=== PATIENT | female | born 1950 | race Caucasian/White ===

== ENCOUNTER → 2018-02-26 15:59 | Outpatient (CLI) | payer MEDICARE, OTHER, SELFPAY ==
--- NOTE | 2018-02-26 16:03 | CT_ITS ---
STUDY: LOW DOSE CT LUNG CANCER SCREENING REASON FOR EXAM: Female, 67 years old. 30 pack year history of smoking. RADIATION DOSAGE (If Supplied By Facility): CTDIvol = ( 3.02 ) mGy, DLP = ( 94.02 ) mGycm TECHNIQUE: No contrast was administered. Low dose technique was utilized (average mAS-38 and kVp 120). 1.25 mm axial source images with a slice interval of 1.25-mm were reconstructed in lung windows. 2.5 mm axial source images with a slice interval of 2.5-mm were reconstructed in lung windows. 5.0 mm axial source images with a slice interval of 5.0-mm were reconstructed in soft tissue windows. Nodule measured using lung windows on PACS and/or independent workstation with automated measurement of minimum and maximum diameter. Nodule measurement reported as average diameter rounded to the nearest whole number. Growth is defined as an increase ins size of greater than 1.5 mm. COMPARISON: None. NODULES: No suspicious nodules are seen. Emphysema: Hyperinflation There is evidence of increased markings with areas of confluence in the posterior lateral aspect of the right middle lobe as well as the anterior medial aspect of the right middle lobe. Focal increased markings also seen in the anterior aspect of the lingular segment of the left upper lobe. This is suggestive of scarring. Aorta: Atherosclerotic calcification. Coronary arteries: Coronary artery calcification. CT/Low Dose CT Lung Screening IMPRESSION: Lung-RADS category 3 - Continue screening with LDCT in 6 months. IMPORTANT NOTES FOR USE: ACR Lung-RADS Version 1.0 Assessment Categories Release Date: June 14, 2013 Category: Coded 0-4 bases on nodule(s) with highest degree of suspicion. Negative screen is defined as categories 1 and 2; a positive screen is defined as categories 3 and 4. Category 3 and 4A nodules that are unchanged on interval CT should be coded as category 2, and individuals returned to screening in 12 months. Category 4X: Category 3 or 4 nodules with additional imaging findings that increase the suspicion of lung cancer, such as spiculation, GGN that doubles in size in 1 year, enlarged lymph notes, etc. Category Modifiers: S (significant finding unrelated to lung cancer) and C (prior history of treated lung cancer) may be added to the 0-4 Lung-RADS Electronically Signed: Arcadio Perrin MD at 15:32 EST Tel [phone], Service support ,
== END ==
PROVIDERS: Family Provider Family Medicine; PCP Family Medicine; Referring Provider Family Medicine; Visit Provider Family Medicine
DX: Z87.891 Personal history of nicotine dependence (principal)
CPT/HCPCS: G0297

== ENCOUNTER 2020-03-08 19:33 | Emergency (ER) | payer MEDICARE, OTHER, SELFPAY ==
[2020-03-08 19:34] VITALS: BP 168/77; PULSE 123; RESP 16; TEMP 36.7; O2SAT 97; BMI 35.5
--- NOTE | 2020-03-08 20:30 | EKG12_ITS ---
Test Reason : ABN LABS Blood Pressure : / mmHG Vent. Rate : 108 BPM Atrial Rate : 108 BPM P-R Int : 146 ms QRS Dur : 066 ms QT Int : 326 ms P-R-T Axes : 056 023 058 degrees QTc Int : 436 ms Sinus tachycardia Otherwise normal ECG Confirmed by XIOMY FOX, ELAINE ([id number]), health editor KACEY PAREKH ([id number]) on 03/09/2020 2:17:49 PM Referred By: KELVIN Confirmed By:ELAINE STAUFFER MD
--- NOTE | 2020-03-08 20:30 | CT_ITS ---
STUDY: CTA CHEST REASON FOR EXAM: Female, 69 years old. SOB X WEEKS, ELEVATED D-DIMER TODAY OP. RADIATION DOSAGE (If Supplied By Facility): CTDIvol = ( 10.805 ) mGy, DLP = ( 518.39 ) mGycm TECHNIQUE: The examination was performed with the intravenous administration of IV 100mL Isovue-370. Post-processing of the angiographic images was performed, with multiplanar reformation and 3D reconstruction. Individualized dose optimization techniques were used for this CT. COMPARISON: Prior chest CT exam of 02/26/2018 FINDINGS: Normal enhancement of the main pulmonary artery and right and left pulmonary arteries. Normal enhancement of the bilateral peripheral pulmonary arteries. There is no demonstrated pulmonary embolism. Moderate plaque and mild elongation of the thoracic aorta. There is no demonstrated aortic dissection. Normal heart and pericardium. Coronary calcifications. Normal mediastinum. Normal hilar regions. Normal visualized trachea and bronchi. Lung villalpando are generally hyperexpanded Increased multifocal platelike areas of atelectasis more notably in the lower lobes, right middle lobe and lingula. Stable pleural-based 3 mm nodule of the right lower lobe, image 92 series 2. Stable 3 mm nodular opacity at the left lung base, image 184 series 2. Negative for pleural effusion. Normal chest wall structures. Degenerative changes of the thoracic spine with increased kyphosis. No acute findings in the uppermost abdomen. CT/CTA Chest W/WO Contrast IMPRESSION: Negative for pulmonary embolus. Atherosclerotic changes of the aorta without aneurysm or dissection. Normal cardiac size without pericardial effusion. Coronary calcifications are present. Generalized hyperexpansion with increased plate like areas of atelectasis primarily in the lower lobes, right middle lobe and lingula since prior exam without other areas of alexandrea consolidation or other types of infiltrates. Negative for pleural effusion. Noncalcified 3 mm pulmonary nodules as described above. Advise yearly follow-up/screening to continue. Electronically Signed: Florencia Owusu MD at 22:04 EST , Service support ,
--- NOTE | 2020-03-08 20:35 | ED.RN ---
NO OLD EKGS IN MUSE
[2020-03-08 21:01] LABS: Absolute Lymphocyte Count 0.92 X10^3/uL (0.83-4.51); Absolute Neutrophil Count 5.8 X10^3/uL (2.0-7.7); Basophil# 0.03 X10^3/uL; Basophil% 0.4 % (0-1); Eosinophils% 1.3 % (0-5); Hematocrit 42.2 % (37-47); Hemoglobin 14.2 g/dL (12.0-15.0); Lymphocyte # 0.92 X10^3/ul (4.0); Lymphocyte % 11.9 % (19-41); Mean Corp Hgb Conc 33.6 g/dL (32-36); Mean Corpuscular Hgb 31.9 pg (27.0-32.0); Mean Corpuscular Volume 94.8 fL (81-99); Mean Platelet Vol. 9.5 fl (6.2-12.0); Monocyte# 0.86 X10^3/uL; Monocyte% 11.2 % (0-10); NRBC Flagged by Analyzer 0 % (0-5); Neutrophil # 5.75 X10^3/uL (2.7-7.7); Neutrophil % 74.7 % (47-70); Platelet Count 225 K/mm3 (150-450); RBC Distribution Width CV 12.7 % (11.6-14.6); RBC Distribution Width SD 43.6 fl (35.1-43.9); Red Blood Count 4.45 M/mm3 (4.2-5.4); White Blood Count 7.7 K/mm3 (4.4-11.0)
[2020-03-08 21:26] LABS: Anion Gap 7 (5-15); BUN 12 mg/dL (7-18); BUN/Creat Ratio 14.8 RATIO (10-20); Chloride 104 mmol/L (98-107); Creatinine, Serum 0.81 mg/dL (0.55-1.02); EST Glomerular Filtration Rate 74 mL/min (>60); Est Glom Filt Rate - Afr Amer 90 mL/min (>60); Estimated Creatinine Clearance 48.77 ml/min; Glucose 189 mg/dL (74-106); Potassium 3.8 mmol/L (3.5-5.1); Sodium Level 138 mmol/L (136-145)
[2020-03-08 21:31] LABS: BNP,B-Type NATRIURETIC PEPTIDE 44.1 pg/mL (0-100)
[2020-03-08 21:55] VITALS: PULSE 112; RESP 25; RESP 26; O2SAT 86; O2SAT 95
[2020-03-08 21:57] VITALS: BP 140/69
--- NOTE | 2020-03-08 22:39 | ED.DCSUM_ITS ---
- ER Visit Summary Date of Service: 03/08/20 Chief Complaint: [Shortness of breath and abnormal labs] History of Present Illness: The patient is a 69 F [presents to the emergency department at the request of her primary care physician who ordered a D-dimer today and noted that it was elevated. Patient does state that she has been short of breath for about 3 months especially with exertion. Patient had a stress test in January that was normal. Patient states that she had some upper respiratory illness in the early part of 2019 for which she was treated with Zithromax and she felt like she got better. Patient then went down to [place] to see family and when she came back in November she started feeling increasingly short of breath with activity and exertion. She denies any chest pain. She denies any recent fever or cough. No Covid symptoms otherwise. Patient has history of hypertension and high cholesterol.] Patient was seen by pulmonology today nurse practitioner and had pulmonary function test. Patient is scheduled to see her health assessment and treatment teacher in the office tomorrow. Physical Examination: [HEENT-PERRLA, EOMI. Cranial nerves II through XII grossly intact. TMs clear. Mucous membranes moist. No adenopathy. Cardiovascular-regular rate and rhythm without murmur or ectopy Lungs-clear to auscultation, chest wall stable without crepitus or subcu emphysema Abdomen-normoactive bowel sounds, soft, nontender, no rebound or rigidity, no peritoneal signs. Extremities-intact ?4, normal range of motion, normal pulses, atraumatic] Test Results: [EKG obtained arrival shows sinus rhythm with a ventricular rate of 108 bpm with no acute segment changes. CBC with it was normal. Chemistries unremarkable. Troponin less than 0.015. BNP was 44. CTA of the chest showed no evidence of PE or dissection. Patient was noted to have platelike atelectasis in the lower lobes otherwise nothing significant.] Emergency Department Course and Treatment: [IV line established on arrival.] Treatment Plan: [Patient to keep her appointment with pulmonology tomorrow.] Disposition: [Discharged home in stable condition] Impression: [Dyspnea-etiology uncertain] This note was generated with [employer] software. It may contain incorrect words, spelling, and punctuation that were not noted in review of the chart prior to signing ED Disposition - Plan for ED Patient: Referrals: Hoda Marquis MD [Primary Care Provider] -
--- NOTE | 2020-03-08 22:42 | ED.DEP ---
ED Disposition - Plan for ED Patient: Instructions: ED Dyspnea Referrals: Hoda Marquis MD [Primary Care Provider] - 1 Day
[2020-03-08 22:56] VITALS: BP 150/84; PULSE 109; RESP 19; O2SAT 96
== END 2020-03-08 22:57 | disposition home or self-care (01) ==
PROVIDERS: Emergency Provider Emergency Medicine
DX: R06.00 Dyspnea, unspecified (principal); R06.02 Shortness of breath; R09.02 Hypoxemia; I10 Essential (primary) hypertension; E78.00 Pure hypercholesterolemia, unspecified; Z79.82 Long term (current) use of aspirin; Z79.899 Other long term (current) drug therapy; Z87.891 Personal history of nicotine dependence
CPT/HCPCS: 71275; 80048; 83880; 84484; 85025; 85379; 93005; 99284; Q9967; A4216

== ENCOUNTER → 2020-03-08 | Outpatient (CLI) | payer MEDICARE, OTHER, SELFPAY ==
[2020-03-08 17:16] LABS: D-Dimer Quantitative (DVT/PE) 0.54 FEU/ug/m (0.27-0.49)
== END | disposition home or self-care (01) ==
LOC: LABSPEC 15:58
PROVIDERS: PCP Family Medicine; Referring Provider Family Medicine; Visit Provider Family Medicine
DX: R06.02 Shortness of breath (principal); R09.02 Hypoxemia
CPT/HCPCS: 85379

== ENCOUNTER 2023-01-31 13:25 | Inpatient (IN) | payer MEDICARE, OTHER, SELFPAY ==
[2023-01-31] VITALS (10 sets, daily range): BP systolic 100–140; BP diastolic 73–91; PULSE 18–120; RESP 18–121; TEMP 35.6–37.6; O2SAT 92–97; BMI 35.9; BMI 35.3
--- NOTE | 2023-01-31 13:48 | EKG12_ITS ---
Test Reason : SOB Blood Pressure : / mmHG Vent. Rate : 114 BPM Atrial Rate : 114 BPM P-R Int : 128 ms QRS Dur : 066 ms QT Int : 302 ms P-R-T Axes : 000 018 047 degrees QTc Int : 416 ms Sinus tachycardia Otherwise normal ECG Confirmed by ALEXIS FOX, THOMAS ([id number]), video editor DAVID SIMONS ([id number]) on 02/03/2023 1:34:30 P M Referred By: Confirmed By:LENORE ESPINOZA MD
[2023-01-31] MEDS: Ipratropium/Albuterol Sulfate 3 ML AMPUL.NEB INHALATION ×2 (13:56→19:19)
[2023-01-31] MEDS: Albuterol 2.5 MG/3 ML VIAL.NEB. INHALATION (13:56)
[2023-01-31 14:16] LABS: Absolute Lymphocyte Count 0.98 X10^3/uL (0.83-4.51); Absolute Neutrophil Count 7.4 X10^3/uL (2.0-7.7); Basophil# 0.04 X10^3/uL; Basophil% 0.4 % (0-1); Eosinophil# 0.07 X10^3/uL; Eosinophils% 0.7 % (0-5); Hematocrit 43.8 % (37-47); Hemoglobin 15.1 g/dL (12.0-15.0); Lymphocyte # 0.98 X10^3/ul (0.83-4.51); Lymphocyte % 10.2 % (19-41); Mean Corp Hgb Conc 34.5 g/dL (32-36); Mean Corpuscular Hgb 33.2 pg (27.0-32.0); Mean Corpuscular Volume 96.3 fL (81-99); Mean Platelet Vol. 9.4 fl (6.2-12.0); Monocyte# 1.05 X10^3/uL; NRBC Flagged by Analyzer 0 % (0-5); Neutrophil # 7.41 X10^3/uL (2.7-7.7); Neutrophil % 77.4 % (47-70); Platelet Count 203 K/mm3 (150-450); RBC Distribution Width CV 12.4 % (11.6-14.6); RBC Distribution Width SD 44.1 fl (35.1-43.9); Red Blood Count 4.55 M/mm3 (4.2-5.4); White Blood Count 9.6 K/mm3 (4.4-11.0)
--- NOTE | 2023-01-31 14:17 | RAD_ITS ---
STUDY: X-RAY CHEST REASON FOR EXAM: Female, 72 years old. Dyspnea TECHNIQUE: Single AP portable view of the chest. COMPARISON: None. FINDINGS: EKG electrode are seen. Mild degree of vascular congestion. Mild increased markings at the lung bases to just above the left basilar scarring and/or linear atelectasis. There is no demonstrated pleural abnormality. Normal size heart. Normal mediastinum and radu. Normal visualized pulmonary arteries. There is atherosclerotic calcification of the aortic arch with tortuosity. There are diffuse degenerative changes of the visualized thoracic spine. There is degenerative osteoarthritis of the bilateral shoulders. There is no demonstrated abnormality of the visualized soft tissue structures of the upper abdomen. RAD/Chest 1 View (Portable) IMPRESSION: Mass or congestion. Mild increased markings at the lung bases suggestive of linear atelectasis and/or scarring. Electronically Signed: Arcadio Perrin MD at 14:37 EST ,
[2023-01-31 14:33] LABS: Anion Gap 4 (5-15); BUN 9 mg/dL (7-18); BUN/Creat Ratio 13.3 RATIO (10-20); Calcium,Total 9.8 mg/dL (8.5-10.1); Chloride 98 mmol/L (98-107); Creatinine, Serum 0.68 mg/dL (0.55-1.02); EST Glomerular Filtration Rate 90 mL/min (>60); Est Glom Filt Rate - Afr Amer 109 mL/min (>60); Estimated Creatinine Clearance 37.81 ml/min; Glucose 170 mg/dL (74-106); Potassium 3.7 mmol/L (3.5-5.1); Sodium Level 135 mmol/L (136-145)
[2023-01-31 15:35] LABS: BNP,B-Type NATRIURETIC PEPTIDE 78.1 pg/mL (0-100)
[2023-01-31 15:42] LABS: Troponin-I HS 8 pg/mL (3.0-54.0)
--- NOTE | 2023-01-31 15:57 | ED.VIS.DYS ---
HPI History of Present Illness Chief Complaint: Shortness of Breath Informant: patient Narrative Narrative: 72-year-old female presenting to the emergency room with shortness of breath and wheezing. Patient states that on Friday she developed cough and wheezing and progressively battled a week. She notes an associated fever which she states went away around Friday evening. She notes that she continues to Wheeze and bring up phlegm. She states that she quit smoking in 2010. She takes Trelegy and has a rescue inhaler. She states she has oxygen but wears it at night and it is just located in her bedroom. She states that she does not wear CPAP.. Patient notes that she has dyspnea with exertion to the bathroom. [facility] Medical History COVID Diabetes HTN (hypertension) Hypercholesteremia Obesity Pneumonia Home Medications albuterol sulfate 90 mcg/actuation aerosol inhaler 2 puff inhalation Q4H PRN PRN Wheezing 03/08/20 [History Last Taken Unknown] amlodipine 10 mg tablet 10 mg PO DAILY 03/08/20 [History Last Taken Unknown] aspirin 81 mg tablet,delayed release 81 mg PO DAILY@0800 03/08/20 [History Last Taken Unknown] atorvastatin 40 mg tablet 40 mg PO QHS 03/08/20 [History Last Taken Unknown] lisinopril 40 mg tablet 40 mg PO DAILY 03/08/20 [History Last Taken Unknown] vitamins A,C,N-ihmu-wsyhzy 2,148 mcg-113 mg-45 mg-17.4 mg tablet 1 ea PO DAILY 03/08/20 [History Last Taken Unknown] fluticasone fur. 100 mcg-umeclid 62.5 mcg-vilant 25 mcg inhalat.powder (Trelegy Ellipta) 1 inh inhalation Q24H 01/31/23 [History Last Taken Unknown] metformin 500 mg tablet 500 mg PO DAILY 01/31/23 [History Last Taken Unknown] Allergy/AdvReac Type Severity Reaction Status Date / Time codeine Allergy Itching Verified 03/08/20 19:38 Penicillins [PCN] Allergy Itching Verified 03/08/20 19:38 Sulfa (Sulfonamide Allergy Itching Verified 03/08/20 19:38 Antibiotics) Tetanus Vaccines and Toxoid Allergy NEEDS Verified 03/08/20 19:38 FOLLOW-UP Social History Smoking Status: Former smoker ROS ROS ED Constitutional Constitutional ED: Reports chills, fever(s) and sweats; Denies weight loss Eyes Eyes: Denies change in vision or diplopia ENT ENT ED: Reports rhinorrhea; Denies ear pain or sore throat Cardiovascular Cardiovascular: Denies chest pain, orthopnea, palpitations or racing heartbeat Respiratory/Chest Respiratory/Chest: Reports cough, dyspnea, dyspnea on exertion and sputum; Denies orthopnea Gastrointestinal Gastrointestinal: Denies abdominal pain, diarrhea, nausea or vomiting Genitourinary Genitourinary ED: Denies dysuria, hematuria or urinary frequency Musculoskeletal Musculoskeletal: Reports myalgias; Denies arthralgias Integumentary Denies abscess or rash Neurologic Neurologic: Denies headache(s) or weakness Psychiatric Psychiatric: Denies anxiety, depression, suicidal ideation or suicidal thoughts Endocrine Endocrinology: Denies polydipsia, polyphagia or polyuria Allergic/Immunologic Allergic/Immunologic ED: Denies mouth swelling, tongue swelling or urticaria EXAM Physical Exam Const Vital Signs: 01/31/23 13:26 01/31/23 13:49 01/31/23 14:18 Temperature 99.3 F H Temperature Source Temporal Pulse Rate 120 H 120 H Respiratory Rate 22 H 20 H Respiratory Effort Short of Breath Respiratory Depth Normal Respiratory Pattern Normal Blood Pressure 140/79 H Blood Pressure Mean 99 Pulse Ox 94 Oxygen Delivery Method Room Air Room Air 01/31/23 15:20 01/31/23 16:30 Temperature 97.8 F Temperature Source Pulse Rate 18 L 113 H Respiratory Rate 121 H 19 H Respiratory Effort Respiratory Depth Respiratory Pattern Blood Pressure 100/73 115/77 Blood Pressure Mean 82 89 Pulse Ox 95 94 Oxygen Delivery Method Room Air Positive well nourished, well developed and obese General Appearance ED: well developed Nutritional Appearance: obese HEENT Reports normocephalic, head/scalp atraumatic and moist mucous membranes Eyes PERRL and EOMs intact bilaterally Neck no lymphadenopathy, supple and no JVD Resp Resp Narrative: Patient has conversational dyspnea Auscultation: rhonchi, wheezes and diminished lung sounds Cardio regular rate, regular rhythm and no murmurs Rate: tachycardic GI normal to inspection, nondistended, normoactive bowel sounds and non-tender Palpation: soft Back/Spine no CVA tenderness and normal ROM Extremity normal to inspection General Extremety ED: Negative for edema General Extremity: Negative for edema Neuro oriented x3 and CN's II-XII intact bilaterally Sensorium / Orientation: alert Motor Exam: strength 5/5 throughout Psych mental status grossly normal Mood & Affect: Negative for depressed or tearful Skin no rashes or lesions noted and no wounds MDM MDM MDM Narrative Medical decision making narrative: Patient received breathing treatments and later Solu-Medrol. White count 9.6 hemoglobin 15.1. Troponin 8 BNP 78. BMP showed a glucose of 170. My independent interpretation of the chest x-ray is no definitive infiltrate/consolidation. After the treatment the patient continues to be tachycardic and dyspneic. When she ambulates on room air her pulse ox is in the 80s. Patient appears to have a viral illness with bronchospasm and hypoxia. Plan is admission. History & Record Review Discussion w/independent historian: Patient Additional record(s) reviewed:: Prior ED visit and Prior labs Lab Data Attestation: I reviewed the patient's lab results. Labs: Laboratory Results - last 24 hr 01/31/23 14:00 WBC 9.6 RBC 4.55 Hgb 15.1 H Hct 43.8 MCV 96.3 MCH 33.2 H MCHC 34.5 RDW Std Deviation 44.1 H RDW Coeff of Rashaad 12.4 Plt Count 203 MPV 9.4 Immature Gran % (Auto) 0.300 Neut % (Auto) 77.4 H Lymph % (Auto) 10.2 L [place] % (Auto) 11.0 H Eos % (Auto) 0.7 Baso % (Auto) 0.4 Absolute Neuts (auto) 7.4 Absolute Lymphs (auto) 0.98 Nucleated RBC % 0 Sodium 135 L Potassium 3.7 Chloride 98 Carbon Dioxide 33.0 H Anion Gap 4 L BUN 9 Creatinine 0.68 Estim Creat Clear Calc 37.81 Est GFR (MDRD) Af Amer 109 Est GFR (MDRD) Non-Af 90 BUN/Creatinine Ratio 13.3 Glucose 170 H Calcium 9.8 Troponin I High Sens 8 B-Natriuretic Peptide 78.1 Radiography Diagnostic Testing: Clinical Impression(s) from Imaging Studies Chest X-Ray 01/31/23 14:17 IMPRESSION: Mass or congestion. Mild increased markings at the lung bases suggestive of linear atelectasis and/or scarring. Electronically Signed: Arcadio Perrin MD at 14:37 EST , ADDENDUM: 01/31/23 1509 IMPRESSION: Vascular congestion. Electronically Signed: Arcadio Perrin MD at 15:02 EST , EKG Initial EKG: Attestation: I personally reviewed and interpreted this EKG as follows: Comments: Sinus tachycardia with a ventricular rate of 114 bpm Management Discussion w/another healthcare provider: Hospitalist Discharge Plan Dx/Rx/DC Orders Clinical Impression: Acute bronchitis with bronchospasm, Hypoxia Disposition Disposition: Acute Care Hospital [facility]
[2023-01-31] MEDS: MethylPREDNISolone 125 MG/2 ML Vial IV (16:27)
--- NOTE | 2023-01-31 17:17 | PCM.HP.STD ---
HPI - General General Date of Admission: 01/31/23 Date of Service: 01/31/23 Chief Complaint: Increasing SOB HPI Narrative YUE LOPEZ, is a 72 F with hypertension, former tobacco use, O2 nightly, and insomnia who presents to [facility] 01/31/2023 due to increasing shortness of breath and productive cough. Reportedly started coughing and got congested on Friday and had a fever at that time, fever has resolved but she has had increased shortness of breath and cough with yellow and brown sputum. In ED patient with significant wheezing and when ambulated with decrease sats to 85% on room air, at rest was 90 to 91% on room air. Patient denies any lung issues however uses a trilogy inhaler and oxygen at bedtime but does not note any specific underlying diagnoses. At present feels slightly better than she did on arrival she got steroids and nebs however still feels wheezy and short of breath. Patient agreeable for admission. No fever in several days, reports that she had a sick contact 3 days before she became ill but does not know what that person had. Denies any other focal complaints. Was a former tobacco user quit in 2010, does have difficulty with sleep so drinks 3 glasses of Chardonnay nightly to help her sleep, denies any history of withdrawal or problems if she does not drink aside from does not being able to sleep very well. No chest pain, no swelling. [facility] Medical History (Updated 01/31/23 @ 17:[address] Deborah Barron MD) COPD (chronic obstructive pulmonary disease) COVID Diabetes HTN (hypertension) Hypercholesteremia Legally blind Obesity Pneumonia Home Medications albuterol sulfate 90 mcg/actuation aerosol inhaler 2 puff inhalation Q4H PRN PRN Wheezing 03/08/20 [History Last Taken Unknown] amlodipine 10 mg tablet 10 mg PO DAILY 03/08/20 [History Last Taken Unknown] aspirin 81 mg tablet,delayed release 81 mg PO DAILY@0800 03/08/20 [History Last Taken Unknown] atorvastatin 40 mg tablet 40 mg PO QHS 03/08/20 [History Last Taken Unknown] lisinopril 40 mg tablet 40 mg PO DAILY 03/08/20 [History Last Taken Unknown] vitamins A,C,A-fltj-rifnth 2,148 mcg-113 mg-45 mg-17.4 mg tablet 1 ea PO DAILY 03/08/20 [History Last Taken Unknown] fluticasone fur. 100 mcg-umeclid 62.5 mcg-vilant 25 mcg inhalat.powder (Trelegy Ellipta) 1 inh inhalation Q24H 01/31/23 [History Last Taken Unknown] metformin 500 mg tablet 500 mg PO DAILY 01/31/23 [History Last Taken Unknown] Allergy/AdvReac Type Severity Reaction Status Date / Time venom-honey bee Allergy Severe Swelling Verified 01/31/23 17:12 codeine Allergy Itching Verified 03/08/20 19:38 Penicillins [PCN] Allergy Itching Verified 03/08/20 19:38 Sulfa (Sulfonamide Allergy Itching Verified 03/08/20 19:38 Antibiotics) Tetanus Vaccines and Toxoid Allergy NEEDS Verified 03/08/20 19:38 FOLLOW-UP Family History (Updated 01/31/23 @ 17:00 by Chinyere Melchor) Mother Heart failure Father Heart failure Social History Smoking Status: Former smoker ROS ROS Narrative General: Initially fevers early in the week but these have resolved HENT: Denies headache, some nasal congestion, denies sore throat EYES: Denies changes in vision Resp: Shortness of breath on exertion primarily with productive cough Cardiac: Denies chest pain GI: Denies abdominal pain, denies changes in bowel, denies nausea/vomiting : Denies changes in urination Extremity: Denies swelling MSK: Denies weakness Neuro: Denies any numbness/tingling Heme: Denies any bleeding or bruising Skin: Denies rashes Psychiatric: No complaints voiced Vital Signs Vital Signs Vital Signs: 01/31/23 13:26 01/31/23 13:49 01/31/23 14:18 Temperature 99.3 F H Temperature Source Temporal Pulse Rate 120 H 120 H Respiratory Rate 22 H 20 H Respiratory Effort Short of Breath Respiratory Depth Normal Respiratory Pattern Normal Blood Pressure 140/79 H Blood Pressure Mean 99 Blood Pressure Source Blood Pressure Position Blood Pressure Location Pulse Ox 94 Oxygen Delivery Method Room Air Room Air 01/31/23 15:20 01/31/23 16:30 01/31/23 17:04 Temperature 97.8 F 99.6 F H Temperature Source Oral Pulse Rate 18 L 113 H 107 H Respiratory Rate 121 H 19 H 20 H Respiratory Effort Respiratory Depth Respiratory Pattern Blood Pressure 100/73 115/77 113/91 H Blood Pressure Mean 82 89 98 Blood Pressure Source Monitor Blood Pressure Position Sitting Blood Pressure Location Left Arm Pulse Ox 95 94 96 Oxygen Delivery Method Room Air Room Air Weight Weight: 84.822 kg Body Mass Index (BMI) 35.3 Physical Exam Narrative General: Alert, oriented, no apparent distress HEENT: Atraumatic, normocephalic Eyes: Anicteric, normal conjunctiva, extraocular movements grossly intact Neck: Supple Respiratory: Increased effort with diffuse wheezing Cardiovascular: Slightly tachycardic, sinus rhythm GI: Soft, nontender, nondistended Extremities: No edema Musculoskeletal: Moving all extremities Neuro: No overt focal neurological deficits Skin: No rashes appreciated Psych: Cooperative Results Lab / Micro Data 01/31/23 14:00 01/31/23 14:00 Labs: Laboratory Results - last 24 hr 01/31/23 14:00: WBC 9.6, RBC 4.55, Hgb 15.1 H, Hct 43.8, MCV 96.3, MCH 33.2 H, MCHC 34.5, RDW Std Deviation 44.1 H, RDW Coeff of Rashaad 12.4, Plt Count 203, MPV 9.4, Immature Gran % (Auto) 0.300, Neut % (Auto) 77.4 H, Lymph % (Auto) 10.2 L, [place] % (Auto) 11.0 H, Eos % (Auto) 0.7, Baso % (Auto) 0.4, Absolute Neuts (auto) 7.4, Absolute Lymphs (auto) 0.98, Nucleated RBC % 0, Sodium 135 L, Potassium 3.7, Chloride 98, Carbon Dioxide 33.0 H, Anion Gap 4 L, BUN 9, Creatinine 0.68, Estim Creat Clear Calc 37.81, Est GFR (MDRD) Af Amer 109, Est GFR (MDRD) Non-Af 90, BUN/Creatinine Ratio 13.3, Glucose 170 H, Calcium 9.8, Troponin I High Sens 8, B-Natriuretic Peptide 78.1 Micro: Microbiology 01/31/23 14:06 Nasal Secretion SARS-CoV-2 & FLU Antigen (Rapid) - Final Imagaing Radiology Impression Chest X-Ray 01/31/23 14:17 IMPRESSION: Mass or congestion. Mild increased markings at the lung bases suggestive of linear atelectasis and/or scarring. Electronically Signed: Arcadio Perrin MD at 14:37 EST , ADDENDUM: 01/31/23 1509 IMPRESSION: Vascular congestion. Electronically Signed: Arcadio Perrin MD at 15:02 EST , Assessment & Plan Assessment/Plan (1) Acute bronchitis with bronchospasm: PLAN: Plan # Hypoxia suspect acute on chronic secondary to likely underlying COPD -Patient poor historian as she had reported no lung issues but uses a trelegy inhaler and 2 L of O2 at bedtime -Suspect given her Trelegy inhaler use and history of tobacco use that she may have underlying COPD -Symptoms consistent with a COPD exacerbation -No elevated white blood cell count, has not had any further fevers and no infiltrate on x-ray so do not think she needs treated as pneumonia but will treat as acute exacerbation of COPD -Steroids -Nebs -Azithromycin -COVID and flu negative will check viral panel will also check sputum culture if patient able to produce sample -Incentive spirometer -Mucinex # Hypertension -Continue amlodipine and lisinopril -Patient slightly tachycardic but this is sinus tach and suspect it is all compensatory so we will treat underlying illness # Daily alcohol use -Denies problems with withdrawal in the past but does drink 3 glasses of Chardonnay daily so will add on CIWA coverage in the event patient does begin to withdraw #DVT ppx: Lovenox subcu Deborah Barron MD Time spent in the patient's overall evaluation,decision-making process, review of diagnostic data, adjustment of management, discussion with other providers, nursing nursing and ancillary staff involved in patient's care documentation, 55 minutes
[2023-01-31 18:32] LABS: Bedside Glucose 167 mg/dL (74-106)
[2023-01-31] MEDS: Atorvastatin Calcium 40 MG Tablet PO (20:13)
[2023-01-31] MEDS: guaiFENesin 1,200 MG Tablet 1200 MG PO (20:13)
[2023-01-31 23:15] LABS: Bedside Glucose 261 mg/dL (74-106)
[2023-01-31] MEDS: Insulin Lispro 100 UNIT/ML INSULN.PEN SC (23:25)
[2023-02-01] VITALS (13 sets, daily range): BP systolic 102–167; BP diastolic 65–82; PULSE 89–123; RESP 16–20; TEMP 36.1–36.7; O2SAT 91–95
[2023-02-01] MEDS: Ipratropium/Albuterol Sulfate 3 ML AMPUL.NEB INHALATION ×7 (03:42→23:35)
--- NOTE | 2023-02-01 04:47 | PCM.HOSP.N ---
Hospitalist Note Staff reported respiratory panel results per laboratory with positive influenza A H1. Will initiate Tamiflu.
[2023-02-01] MEDS: Oseltamivir Phosphate 30 MG Capsule PO ×2 (05:52→22:48)
[2023-02-01] MEDS: Insulin Lispro 100 UNIT/ML INSULN.PEN SC ×4 (06:43→22:40)
[2023-02-01 06:57] LABS: Bedside Glucose 303 mg/dL (74-106)
[2023-02-01 08:35] LABS: Absolute Lymphocyte Count 0.42 X10^3/uL (0.83-4.51); Absolute Neutrophil Count 6.5 X10^3/uL (2.0-7.7); Basophil# 0.02 X10^3/uL; Basophil% 0.3 % (0-1); Hematocrit 43.2 % (37-47); Hemoglobin 14.6 g/dL (12.0-15.0); Lymphocyte # 0.42 X10^3/ul (0.83-4.51); Lymphocyte % 5.8 % (19-41); Mean Corp Hgb Conc 33.8 g/dL (32-36); Mean Corpuscular Volume 97.5 fL (81-99); Mean Platelet Vol. 9.9 fl (6.2-12.0); Monocyte% 4.1 % (0-10); NRBC Flagged by Analyzer 0 % (0-5); Neutrophil # 6.46 X10^3/uL (2.7-7.7); Neutrophil % 89.1 % (47-70); POSITIVE DIFFERENTIAL YES; Platelet Count 226 K/mm3 (150-450); RBC Distribution Width CV 12.4 % (11.6-14.6); RBC Distribution Width SD 44.1 fl (35.1-43.9); Red Blood Count 4.43 M/mm3 (4.2-5.4); White Blood Count 7.3 K/mm3 (4.4-11.0)
[2023-02-01 08:56] LABS: Differential Indicated SCAN CRITERIA MET
[2023-02-01 09:00] LABS: Anion Gap 8 (5-15); BUN 14 mg/dL (7-18); BUN/Creat Ratio 18.4 RATIO (10-20); Calcium,Total 9.6 mg/dL (8.5-10.1); Chloride 99 mmol/L (98-107); Creatinine, Serum 0.76 mg/dL (0.55-1.02); EST Glomerular Filtration Rate 79 mL/min (>60); Est Glom Filt Rate - Afr Amer 96 mL/min (>60); Estimated Creatinine Clearance 37.81 ml/min; Glucose 295 mg/dL (74-106); Potassium 3.2 mmol/L (3.5-5.1); Sodium Level 135 mmol/L (136-145); Thyroid Stim Hormone (TSH) 0.39 uIU/mL (0.358-3.74)
[2023-02-01] MEDS: Aspirin E.C. 81 MG Tablet PO (10:18)
[2023-02-01] MEDS: guaiFENesin 1,200 MG Tablet 1200 MG PO ×2 (10:18→22:40)
[2023-02-01] MEDS: Azithromycin 250 MG Tablet 500 MG PO (10:18)
--- NOTE | 2023-02-01 11:49 | CASEMGMT ---
Social Work As per admitting RN, pt does not have LW/POA and declined additional information. DACIA Manuel
[2023-02-01 12:02] LABS: Differential Comment SCANNED
[2023-02-01 13:01] LABS: Bedside Glucose 346 mg/dL (74-106)
[2023-02-01] MEDS: 0.9% Saline Lock 10 ML Syringe IV ×2 (15:20→22:42)
--- NOTE | 2023-02-01 15:21 | PCM.PN.HOSP ---
Reason for Visit Reason for Visit: Diagnoses Acute bronchitis, unspecified (01/31/23) Subjective Subjective Patient seen at bedside this morning. Patient was sitting comfortably in bedside chair, receiving a DuoNeb treatment during my interview. Patient stated that she felt improved this morning at comparison to yesterday. She denied any significant shortness of breath at rest. Satting well on room air currently with no increased work of breathing noted. Does continue to have some dyspnea with exertion. States her cough has been less productive today. Denies any fevers or chills. No other acute concerns this morning. Objective Data Objective Data Vital Signs: Vital Signs Temp Pulse Resp BP Pulse Ox O2 Del Method 97 F L 115 H 16 140/65 H 93 Room Air 02/01/23 12:59 02/01/23 12:59 02/01/23 12:59 02/01/23 12:59 02/01/23 12:59 02/01/23 12:59 Oxygen Delivery Method Room Air Weight: 84.822 kg Body Mass Index (BMI) 35.3 Intake & Output: Intake and Output for Last 24 Hours 01/30/23 01/31/23 02/01/23 23:59 23:59 23:59 Intake Total 400 / 400 Balance 400 / 400 Lab / Micro Data 02/01/23 07:24 02/01/23 07:24 Labs: Laboratory Results - last 24 hr 01/31/23 14:00: Troponin I High Sens 8, B-Natriuretic Peptide 78.1 01/31/23 17:48: POC Glucose 167 H 01/31/23 22:47: POC Glucose 261 H 02/01/23 06:35: POC Glucose 303 H 02/01/23 07:24: WBC 7.3, RBC 4.43, Hgb 14.6, Hct 43.2, MCV 97.5, MCH 33.0 H, MCHC 33.8, RDW Std Deviation 44.1 H, RDW Coeff of Rashaad 12.4, Plt Count 226, MPV 9.9, Immature Gran % (Auto) 0.700, Neut % (Auto) 89.1 H, Lymph % (Auto) 5.8 L, [place] % (Auto) 4.1, Eos % (Auto) 0.0, Baso % (Auto) 0.3, Absolute Neuts (auto) 6.5, Absolute Lymphs (auto) 0.42 L, Nucleated RBC % 0, Differential Comment SCANNED, Sodium 135 L, Potassium 3.2 L, Chloride 99, Carbon Dioxide 28.0, Anion Gap 8, BUN 14, Creatinine 0.76, Estim Creat Clear Calc 37.81, Est GFR (MDRD) Af Amer 96, Est GFR (MDRD) Non-Af 79, BUN/Creatinine Ratio 18.4, Glucose 295 H, Calcium 9.6, TSH 0.39 02/01/23 12:16: POC Glucose 346 H Micro: Microbiology 01/31/23 20:40 Sputum, Expectorated/Coughed Gram Stain - Final 01/31/23 19:19 Mucosa - Nasopharyngeal Respiratory Panel (PCR) - Final Influenza A (Subtype H1) 01/31/23 18:24 Urine, Clean Catch Legionella Antigen - Final 01/31/23 18:24 Urine, Clean Catch Streptococcus pneumoniae Antigen (M - Final 01/31/23 14:06 Nasal Secretion SARS-CoV-2 & FLU Antigen (Rapid) - Final Physical Exam Const alert, oriented x3 and no apparent distress Constitutional Narrative: Pleasant elderly female, obese, sitting comfortably in bedside chair, conversing normally, no acute distress. General Appearance: cooperative and comfortable HEENT normocephalic, head/scalp atraumatic, hearing grossly normal bilaterally, nasal mucous membranes and turbinates normal and moist oral mucous membranes Eyes PERRL, EOMs intact bilaterally and conjunctivae normal Neck full ROM, no lymphadenopathy and supple Lymph Lymphatic: no lymphadenopathy noted Chest inspection of chest normal Resp Resp Narrative: Decreased breath sounds bilaterally throughout, no wheezing or crackles noted. Satting in low 90s on room air, no increased work of breathing noted. Cardio regular rate, regular rhythm, no murmurs and peripheral pulses 2+ throughout GI normal to inspection, nondistended, normoactive bowel sounds, soft to palpation, non-tender and non-distended Back/Spine normal ROM Extremity normal to inspection, full ROM and no pedal edema Skin no rashes or lesions noted Neuro moves all extremities and no focal motor deficits Speech: speech normal Psych mental status grossly normal Assessment & Plan Assessment/Plan (1) Influenza A: (2) COPD exacerbation: PLAN: Plan Patient is a 72-year-old female who presented to [facility] ED on 01/31/23 with worsening cough and shortness of breath. 1. Influenza A infection with suspected COPD exacerbation Positive for influenza A on admit. Chest x-ray showed mild increased markings at lung bases, mild degree of vascular congestion. Patient with mild hypoxia on admit requiring 2 to 3 L nasal cannula. Denies history of COPD but uses a Trelegy inhaler at home and does have a history of tobacco use disorder. Symptoms appear consistent with COPD exacerbation secondary to flu infection. COVID-negative, urine antigens negative. ? Continue IV steroids, scheduled DuoNebs, Tamiflu, azithromycin. Sputum culture pending. Incentive spirometer, Mucinex as needed. Patient weaned to room air at rest. Will need O2 ambulatory testing prior to discharge. Chronic medical conditions: ? Hypertension: Continue home amlodipine and lisinopril. ? Daily alcohol use: Drinks 3 glasses of Chardonnay daily. No problems with withdrawal in the past. Has not triggered CIWA since admission, okay to continue monitoring. DVT prophylaxis: Lovenox CODE STATUS: Full code, verified Expected disposition: Home, tomorrow Total clinical time spent by myself addressing the patient's medical issues, reviewing all the data, and collaborating with patient's care team: 35 minutes. Charges/Coding Visit Charges Inpatient E&M: 02961 Subs Hosp L2
--- NOTE | 2023-02-01 15:40 | CASEMGMT ---
Addendum entered and electronically signed by Myra Jackson RN 02/01/23 21:41: Pt is legally blind and states she can see enough to navigate her home. States she goes outside to walk regularly with her son and a walker to keep her coordination between her eyes and her feet. Jose F Jackson RN CM Original Note: MELINDA PAPPAS Discharge Planning Assessment: Face to Face with patient for initial transition planning/care coordination assessment. MELINDA PAPPAS introduced self and role at [facility], pt alert, sitting up in chair, and answering questions appropriately. Pt voices understanding of MELINDA PAPPAS role and is agreeable to participating in assessment. Care providers, pharmacy, and demographics verified. Admitting dx: Influenza A, bronchitis PCP: Nikki Specialists: Benitez (pulmonology), kai matias'david Preferred Pharmacy: [facility] Insurance: MCR A/B, AARP Prescription Benefit: yes LNOK: son Nikita Living Arrangements: Pt resides with her son Nikita in a single story home with three steps to enter. Pt states she is independent with ADLs and some IADLs. Pt's daughter cleans the home weekly and Nikita assists with more complex meals. Pt states she is able to prepare simple meals. Transportation: p's son provides transportation as needed. DME: shower chair, grab bars, hand held shower, comfort height toilet, walker, O2 at hs only (does not know liter flow or provider which may be [facility]), pt does not have a glucometer or monitor her glucose. Pt states she controls her DM w/diet. SNF/HHC: pt denies any previous providers. Pt's goal/plan: pt plans to return home with the support of her son. Pt denies any discharge needs at this time and declines HH. Will continue to monitor and assist with discharge needs as identified. Mariela Jackson RN CM
[2023-02-01 17:49] LABS: Bedside Glucose 261 mg/dL (74-106)
[2023-02-01] MEDS: Atorvastatin Calcium 40 MG Tablet PO (22:40)
[2023-02-01 23:10] LABS: Bedside Glucose 266 mg/dL (74-106)
[2023-02-01] MEDS: DiphenhydrAMINE 25 MG Capsule PO (23:52)
[2023-02-02] VITALS (15 sets, daily range): BP systolic 119–163; BP diastolic 62–97; PULSE 64–153; RESP 16–20; TEMP 36.1–36.8; O2SAT 93–98
[2023-02-02] MEDS: Insulin Lispro 100 UNIT/ML INSULN.PEN SC ×3 (06:34→16:16)
[2023-02-02 06:55] LABS: Bedside Glucose 249 mg/dL (74-106)
[2023-02-02] MEDS: Ipratropium/Albuterol Sulfate 3 ML AMPUL.NEB INHALATION ×5 (07:53→23:14)
[2023-02-02] MEDS: Azithromycin 250 MG Tablet 500 MG PO (09:07)
[2023-02-02] MEDS: 0.9% Saline Lock 10 ML Syringe IV ×2 (09:07→12:40)
[2023-02-02] MEDS: guaiFENesin 1,200 MG Tablet 1200 MG PO ×2 (09:08→22:05)
[2023-02-02] MEDS: Aspirin E.C. 81 MG Tablet PO ×2 (09:08)
[2023-02-02] MEDS: Oseltamivir Phosphate 30 MG Capsule PO ×2 (09:08→22:05)
--- NOTE | 2023-02-02 10:21 | EKG12_ITS ---
Test Reason : ARRYTHMIA Blood Pressure : / mmHG Vent. Rate : 132 BPM Atrial Rate : 000 BPM P-R Int : 000 ms QRS Dur : 068 ms QT Int : 294 ms P-R-T Axes : 000 041 050 degrees QTc Int : 435 ms Atrial fibrillation with rapid ventricular response with premature ventricular or aberrantly conducte d complexes Nonspecific ST abnormality Abnormal ECG When compared with ECG of 31-JAN-2023 13:59, MANUAL COMPARISON REQUIRED, DATA IS UNCONFIRMED Confirmed by XIOMY FOX, ELAINE ([id number]), state editor DAVID SIMONS ([id number]) on 02/04/2023 11:00:09 AM Referred By: Confirmed By:ELAINE STAUFFER MD
[2023-02-02 10:33] LABS: Bedside Glucose 235 mg/dL (74-106)
--- NOTE | 2023-02-02 11:25 | ECHOD_ITS ---
Reason For Study: ATRIAL FIBRILLATION/ATRIAL FLUTTER Procedure This was a 2D Doppler, Color Flow transthoracic echocardiogram. Exam performed portable in patient room. Left Ventricle Normal LV size. Left ventricular systolic function is normal. The estimated ejection fraction is 60 %. Unable to assess diastolic dysfunction due to arrhythmia. No regional wall motion abnormalities noted. Right Ventricle Normal RV size. Normal systolic function. Atria The left and right atria are normal. Mitral Valve Moderate mitral annular calcification. Mild diffuse mitral valve thickening. Trivial mitral valve insufficiency. Tricuspid Valve Normal tricuspid valve. Trivial tricuspid valve insufficiency. Right ventricular systolic pressure estimated to be 30 mmHg. Aortic Valve Trisinus/trileaflet aortic valve. Mild focal aortic valve calcification. Aortic sclerosis, no stenosis. Pulmonic Valve The pulmonic valve is not well visualized. Great Vessels Normal aortic root. Pericardium/Pleural No pericardial effusion. MMode/2D Measurements & Calculations LVIDd: 4.7 cm IVSd: 1.0 cm Ao root diam: 3.0 cm LVIDs: 3.5 cm LVPWd: 0.96 cm RVDd: 3.2 cm FS: 25.2 % LAV(MOD-bp): 58.4 ml LVAd ap4: 19.6 cm2 LVAd ap2: 15.2 cm2 LAV(MOD-bp) Indexed: 31.8 ml/m2 LVLd ap4: 6.5 cm LVLd ap2: 6.2 cm LAV(MOD-sp2): 58.5 ml EDV(MOD-sp4): 49.1 ml EDV(MOD-sp2): 34.4 ml LAV(MOD-sp4): 58.9 ml EDV(sp4-el): 50.3 ml EDV(sp2-el): 31.9 ml LVAs ap4: 11.2 cm2 LVAs ap2: 9.7 cm2 LVLs ap4: 5.6 cm LVLs ap2: 5.5 cm ESV(MOD-sp4): 21.1 ml ESV(MOD-sp2): 15.4 ml ESV(sp4-el): 18.9 ml ESV(sp2-el): 14.7 ml EF(MOD-sp4): 57.1 % EF(MOD-sp2): 55.2 % EF(sp4-el): 62.5 % SV(MOD-sp4): 28.0 ml SV(MOD-sp2): 19.0 ml SV(sp4-el): 31.5 ml LA dimension(2D): 4.1 cm LA A4 area: 19.7 cm2 RA A4 area: 14.8 cm2 TAPSE: 1.8 cm Doppler Measurements & Calculations MV E max claudio: 133.9 cm/sec Ao V2 max: 116.1 cm/sec LV V1 max: 87.6 cm/sec Ao max P.4 mmHg LV V1 max P.1 mmHg Ao V2 mean: 81.0 cm/sec LV V1 mean P.8 mmHg Ao mean P.9 mmHg LV V1 mean: 63.7 cm/sec Ao V2 VTI: 17.4 cm LV V1 VTI: 13.0 cm AV (velocity ratio): 0.75 PA V2 max: 84.2 cm/sec TR max claudio: 261.6 cm/sec PA V2 mean: 60.4 cm/sec TR max P.4 mmHg ECHO/Echo Complete Interpretation Summary The estimated ejection fraction is 60 %. Unable to assess diastolic dysfunction due to arrhythmia. Moderate mitral annular calcification. Mild diffuse mitral valve thickening. Mild focal aortic valve calcification. Normal LV systolic function Ordering Physician: Maurizio Wells Referring Physician: Rober Jordan Performed By: Antoinette Ladd, SANDRA, RVT
[2023-02-02] MEDS: Metoprolol Tartrate 5 MG/5 ML Vial IV (12:39)
[2023-02-02] MEDS: Metoprolol Tartrate 25 MG Tablet PO ×2 (12:40→22:09)
--- NOTE | 2023-02-02 13:11 | PCM.PN.HOSP ---
Reason for Visit Reason for Visit: Diagnoses Influenza due to other identified influenza virus with other respiratory manifestations (01/31/23) Acute bronchitis, unspecified (01/31/23) Chronic obstructive pulmonary disease with (acute) exacerbation (01/31/23) Subjective Subjective Patient seen at bedside this morning. Patient was sitting comfortably in bedside chair, conversing normally, no acute distress. She was satting in the low 90s on room air, no increased work of breathing noted. However, patient notes that she does continue to get fairly short of breath with exertion, similar to previous days. Patient notably was found to have A-fib with RVR this morning that is new onset; she denies any palpitations or feeling that her heart is racing. Patient is overall concerned with her pneumonia, because she states she was in the hospital about 10 years ago with a very bad case of pneumonia that required a prolonged admission. No other acute concerns morning. Objective Data Objective Data Vital Signs: Vital Signs Temp Pulse Resp BP Pulse Ox O2 Del Method O2 Flow Rate 97.1 F L 137 H 16 131/82 H 95 Room Air 2 02/02/23 12:44 02/02/23 12:44 02/02/23 12:44 02/02/23 12:44 02/02/23 12:44 02/02/23 12:44 02/02/23 04:30 Oxygen Flow Rate (L/min) 2 Oxygen Delivery Method Room Air Weight: 84.822 kg Body Mass Index (BMI) 35.3 Intake & Output: Intake and Output for Last 24 Hours 01/31/23 02/01/23 02/02/23 23:59 23:59 23:59 Intake Total 880 / 880 420 / 420 Balance 880 / 880 420 / 420 Lab / Micro Data 02/01/23 07:24 02/01/23 07:24 Labs: Laboratory Results - last 24 hr 02/01/23 17:28: POC Glucose 261 H 02/01/23 22:37: POC Glucose 266 H 02/02/23 06:33: POC Glucose 249 H 02/02/23 10:14: POC Glucose 235 H Micro: Microbiology 01/31/23 20:40 Sputum, Expectorated/Coughed Gram Stain - Final 01/31/23 20:40 Sputum, Expectorated/Coughed Respiratory Culture - Preliminary Appears to be normal respiratory afsaneh. Further studies to follow. 01/31/23 19:19 Mucosa - Nasopharyngeal Respiratory Panel (PCR) - Final Influenza A (Subtype H1) 01/31/23 18:24 Urine, Clean Catch Legionella Antigen - Final 01/31/23 18:24 Urine, Clean Catch Streptococcus pneumoniae Antigen (M - Final 01/31/23 14:06 Nasal Secretion SARS-CoV-2 & FLU Antigen (Rapid) - Final Physical Exam Const alert, oriented x3 and no apparent distress Constitutional Narrative: Elderly female, obese, sitting comfortably in bedside chair, conversing normally, no acute distress. General Appearance: cooperative and comfortable HEENT normocephalic, head/scalp atraumatic, hearing grossly normal bilaterally, nasal mucous membranes and turbinates normal and moist oral mucous membranes Eyes PERRL, EOMs intact bilaterally and conjunctivae normal Neck full ROM, no lymphadenopathy and supple Lymph Lymphatic: no lymphadenopathy noted Chest inspection of chest normal Resp Resp Narrative: Decreased breath sounds bilaterally throughout, no wheezing or crackles noted. Satting in low 90s on room air, no increased work of breathing noted. Cardio no murmurs and peripheral pulses 2+ throughout Cardio Narrative: A-fib with RVR. GI normal to inspection, nondistended, normoactive bowel sounds, soft to palpation, non-tender and non-distended Back/Spine normal ROM Extremity normal to inspection, full ROM and no pedal edema Skin no rashes or lesions noted Neuro moves all extremities and no focal motor deficits Speech: speech normal Psych mental status grossly normal Assessment & Plan Assessment/Plan (1) Influenza A: (2) COPD exacerbation: PLAN: Plan Patient is a 72-year-old female who presented to [facility] ED on 01/31/23 with worsening cough and shortness of breath. 1. Influenza A infection with suspected COPD exacerbation Positive for influenza A on admit. Chest x-ray showed mild increased markings at lung bases, mild degree of vascular congestion. Patient with mild hypoxia on admit requiring 2 to 3 L nasal cannula. Denies history of COPD but uses a Trelegy inhaler at home and does have a history of tobacco use disorder. Symptoms appear consistent with COPD exacerbation secondary to flu infection. COVID-negative, urine antigens negative. Sputum culture with no growth. ? Continue IV steroids, scheduled DuoNebs, Tamiflu. Azithromycin discontinued on 02/02. Incentive spirometer, Mucinex as needed. Patient weaned to room air at rest. Will need O2 ambulatory testing prior to discharge. 2. New onset Afib with RVR Noted on telemetry on morning of 02/02. EKG showed A-fib with RVR, rate in the 140s. Patient asymptomatic. No previous history of A-fib. ? Patient started on Eliquis 5 mg twice daily, Lopressor 25 mg twice daily, IV Lopressor 5 mg every 6 hours as needed. Echo ordered. Chronic medical conditions: ? Hypertension: Continue home amlodipine and lisinopril. ? Daily alcohol use: Drinks 3 glasses of Chardonnay daily. No problems with withdrawal in the past. Has not triggered CIWA since admission, okay to continue monitoring. DVT prophylaxis: Lovenox CODE STATUS: Full code, verified Expected disposition: Home, 1-2 days Total clinical time spent by myself addressing the patient's medical issues, reviewing all the data, and collaborating with patient's care team: 35 minutes. Charges/Coding Visit Charges Inpatient E&M: 96898 Subs Hosp L2
[2023-02-02] MEDS: APIXABAN 5 MG TABLET PO ×2 (13:43→22:05)
[2023-02-02 16:41] LABS: Bedside Glucose 220 mg/dL (74-106)
[2023-02-02] MEDS: Atorvastatin Calcium 40 MG Tablet PO (22:04)
[2023-02-02] MEDS: MELATONIN 3 MG TABLET 10 MG PO (22:27)
[2023-02-02 23:21] LABS: Bedside Glucose 145 mg/dL (74-106)
[2023-02-03] VITALS (30 sets, daily range): BP systolic 102–172; BP diastolic 62–131; PULSE 80–140; RESP 12–24; TEMP 36.2–36.6; O2SAT 90–100
[2023-02-03] MEDS: Insulin Lispro 100 UNIT/ML INSULN.PEN SC ×4 (06:31→22:03)
[2023-02-03 07:03] LABS: Bedside Glucose 181 mg/dL (74-106)
[2023-02-03] MEDS: Ipratropium/Albuterol Sulfate 3 ML AMPUL.NEB INHALATION ×5 (07:23→23:09)
[2023-02-03] MEDS: APIXABAN 5 MG TABLET PO ×2 (09:09→21:58)
[2023-02-03] MEDS: Metoprolol Tartrate 25 MG Tablet PO ×2 (09:10→21:58)
[2023-02-03] MEDS: Oseltamivir Phosphate 30 MG Capsule PO ×2 (09:10→22:03)
[2023-02-03] MEDS: guaiFENesin 1,200 MG Tablet 1200 MG PO ×2 (09:10→21:58)
--- NOTE | 2023-02-03 09:11 | PN.HOSP_ITS ---
Subjective Subjective Breathing well, still feels sick. Has been getting up without assistance to go tot the bathroom. Objective Data Objective Data Vital Signs: Vital Signs Temp Pulse Resp BP Pulse Ox O2 Del Method O2 Flow Rate 36.2 C L 82 18 128/74 H 93 Room Air 93 02/03/23 09:06 02/03/23 09:10 02/03/23 09:06 02/03/23 09:06 02/03/23 09:06 02/03/23 09:06 02/03/23 09:04 Oxygen Flow Rate (L/min) 93 Oxygen Delivery Method Room Air Weight: 84.822 kg Body Mass Index (BMI) 35.3 Intake & Output: Intake and Output for Last 24 Hours 02/01/23 02/02/23 02/03/23 23:59 23:59 23:59 Intake Total 880 / 880 995 / 995 Balance 880 / 880 995 / 995 Lab / Micro Data 02/01/23 07:24 02/01/23 07:24 Labs: Laboratory Results - last 24 hr 02/02/23 10:14: POC Glucose 235 H 02/02/23 16:15: POC Glucose 220 H 02/02/23 22:02: POC Glucose 145 H 02/03/23 06:30: POC Glucose 181 H Micro: Microbiology 01/31/23 20:40 Sputum, Expectorated/Coughed Gram Stain - Final 01/31/23 20:40 Sputum, Expectorated/Coughed Respiratory Culture - Final 01/31/23 19:19 Mucosa - Nasopharyngeal Respiratory Panel (PCR) - Final Influenza A (Subtype H1) 01/31/23 18:24 Urine, Clean Catch Legionella Antigen - Final 01/31/23 18:24 Urine, Clean Catch Streptococcus pneumoniae Antigen (M - Final 01/31/23 14:06 Nasal Secretion SARS-CoV-2 & FLU Antigen (Rapid) - Final Physical Exam Const alert and no apparent distress Resp normal respiratory effort, no retractions, no use of accessory muscles and clear to auscultation bilaterally Cardio regular rate, regular rhythm, S1 normal heart sound and S2 normal heart sound GI normal to inspection, nondistended, normoactive bowel sounds, soft to palpation, non-tender and non-distended Assessment & Plan Assessment/Plan (1) Influenza A: (2) COPD exacerbation: PLAN: Plan 1. Influenza A infection with suspected COPD exacerbation * Positive for influenza A on admit. * Chest x-ray showed mild increased markings at lung bases, mild degree of vascular congestion. Patient with mild hypoxia on admit requiring 2 to 3 L na don cannula. Denies history of COPD but uses a Trelegy inhaler at home and does have a history of tobacco use disorder. Symptoms appear consistent with COPD exacerbation secondary to flu infection. COVID-negative, urine antigens negative. Sputum culture with no growth. * Tamiflu. Azithromycin discontinued on 02/02. Incentive spirometer, Mucinex as needed. Patient weaned to room air at rest. Will need O2 ambulatory testing prior to discharge. 2. New onset Afib with RVR * Noted on telemetry on morning of 02/02. EKG showed A-fib with RVR, rate in the 140s. Patient asymptomatic. No previous history of A-fib. * Patient started on Eliquis 5 mg twice daily, Lopressor 25 mg twice daily, IV Lopressor 5 mg every 6 hours as needed. Echo ordered. Chronic medical conditions: ? Hypertension: Continue home amlodipine and lisinopril. ? Daily alcohol use: Drinks 3 glasses of Chardonnay daily. No problems with withdrawal in the past. Has not triggered CIWA since admission, okay to continue monitoring. DVT prophylaxis: Lovenox CODE STATUS: Full code, verified Expected disposition: pending echocardiogram. Charges/Coding Visit Charges Inpatient E&M: 05625 Subs Hosp L2
[2023-02-03 11:45] LABS: Bedside Glucose 265 mg/dL (74-106)
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
[2023-02-03] MEDS: Metoprolol Tartrate 5 MG/5 ML Vial IV (15:28)
[2023-02-03 17:56] LABS: Bedside Glucose 151 mg/dL (74-106)
--- NOTE | 2023-02-03 18:07 | EKG12_ITS ---
Test Reason : CHANGE Blood Pressure : / mmHG Vent. Rate : 136 BPM Atrial Rate : 000 BPM P-R Int : 000 ms QRS Dur : 060 ms QT Int : 286 ms P-R-T Axes : 000 033 051 degrees QTc Int : 430 ms Atrial fibrillation with rapid ventricular response with premature ventricular or aberrantly conducte d complexes Low voltage QRS Nonspecific ST abnormality Abnormal ECG When compared with ECG of 02-FEB-2023 11:13, MANUAL COMPARISON REQUIRED, DATA IS UNCONFIRMED Confirmed by XIOMY FOX, ELAINE ([id number]), senior editor DAVID SIMONS ([id number]) on 02/05/2023 6:02:28 AM Referred By: Confirmed By:ELAINE STAUFFER MD
[2023-02-03] MEDS: dilTIAZem 25 MG/5 ML Vial 20 MG IV BOLUS (18:38)
[2023-02-03] MEDS: Diltiazem 125 MG in Dextrose 5%-Water (100mL Bag) 100 ML CONT INF (18:44)
[2023-02-03] MEDS: Atorvastatin Calcium 40 MG Tablet PO (21:58)
[2023-02-03 22:29] LABS: Bedside Glucose 162 mg/dL (74-106)
[2023-02-03] MEDS: MELATONIN 10 MG TABLET PO (23:46)
[2023-02-03] MEDS: Senna/Docusate Sodium 1 Tablet 2 TABLET PO (23:47)
[2023-02-04] VITALS (31 sets, daily range): BP systolic 93–159; BP diastolic 55–90; PULSE 69–169; RESP 16–26; TEMP 36.4–36.7; O2SAT 90–98
[2023-02-04] MEDS: Potassium Chloride Oral Tablet 20 MEQ 40 MEQ PO (01:58)
[2023-02-04] MEDS: Diltiazem 125 MG in Dextrose 5%-Water (100mL Bag) 100 ML 15 MG CONT INF (04:22)
[2023-02-04] MEDS: Insulin Lispro 100 UNIT/ML INSULN.PEN SC ×4 (06:39→22:04)
[2023-02-04 06:59] LABS: Bedside Glucose 203 mg/dL (74-106)
[2023-02-04 07:08] LABS: Anion Gap 6 (5-15); BUN 16 mg/dL (7-18); BUN/Creat Ratio 23.6 RATIO (10-20); Calcium,Total 8.8 mg/dL (8.5-10.1); Chloride 103 mmol/L (98-107); Creatinine, Serum 0.68 mg/dL (0.55-1.02); EST Glomerular Filtration Rate 90 mL/min (>60); Est Glom Filt Rate - Afr Amer 109 mL/min (>60); Estimated Creatinine Clearance 37.81 ml/min; Glucose 214 mg/dL (74-106); Potassium 4.1 mmol/L (3.5-5.1); Sodium Level 135 mmol/L (136-145)
[2023-02-04] MEDS: Ipratropium/Albuterol Sulfate 3 ML AMPUL.NEB INHALATION ×4 (07:14→19:18)
[2023-02-04] MEDS: Metoprolol Tartrate 25 MG Tablet PO ×2 (08:19→10:40)
[2023-02-04] MEDS: Oseltamivir Phosphate 30 MG Capsule PO ×2 (08:19→21:50)
[2023-02-04] MEDS: APIXABAN 5 MG TABLET PO ×2 (08:19→21:50)
[2023-02-04] MEDS: guaiFENesin 1,200 MG Tablet 1200 MG PO ×2 (08:19→21:50)
[2023-02-04] MEDS: Aspirin E.C. 81 MG Tablet PO (08:19)
--- NOTE | 2023-02-04 08:31 | PN.HOSP_ITS ---
Reason for Visit Reason for Visit: Diagnoses Influenza due to other identified influenza virus with other respiratory manife stations (01/31/23) Acute bronchitis, unspecified (01/31/23) Chronic obstructive pulmonary disease with (acute) exacerbation (01/31/23) Subjective Subjective Feels well. Developed afib RVR last night and was started on diltiazem bolus w gtt. Objective Data Objective Data Vital Signs: Vital Signs Temp Pulse Resp BP Pulse Ox O2 Del Method O2 Flow Rate 36.4 C L 94 19 H 122/63 H 94 Room Air 1 02/04/23 04:28 02/04/23 08:19 02/04/23 08:00 02/04/23 08:19 02/04/23 08:00 02/04/23 08:00 02/04/23 07:15 Oxygen Flow Rate (L/min) 1 Oxygen Delivery Method Room Air Weight: 84.8 kg Body Mass Index (BMI) 35.3 Intake & Output: Intake and Output for Last 24 Hours 02/02/23 02/03/23 02/04/23 23:59 23:59 23:59 Intake Total 995 / 995 845.00 / 845.00 131.25 / 131.25 Balance 995 / 995 845.00 / 845.00 131.25 / 131.25 Lab / Micro Data 02/01/23 07:24 02/04/23 05:45 Labs: Laboratory Results - last 24 hr 02/03/23 11:05: POC Glucose 265 H 02/03/23 16:48: POC Glucose 151 H 02/03/23 21:57: POC Glucose 162 H 02/04/23 05:45: Sodium 135 L, Potassium 4.1, Chloride 103, Carbon Dioxide 26.0, Anion Gap 6, BUN 16, Creatinine 0.68, Estim Creat Clear Calc 37.81, Est GFR (MDRD) Af Amer 109, Est GFR (MDRD) Non-Af 90, BUN/Creatinine Ratio 23.6 H, Glucose 214 H, Calcium 8.8 02/04/23 06:37: POC Glucose 203 H Micro: Microbiology 01/31/23 20:40 Sputum, Expectorated/Coughed Gram Stain - Final 01/31/23 20:40 Sputum, Expectorated/Coughed Respiratory Culture - Final 01/31/23 19:19 Mucosa - Nasopharyngeal Respiratory Panel (PCR) - Final Influenza A (Subtype H1) 01/31/23 18:24 Urine, Clean Catch Legionella Antigen - Final 01/31/23 18:24 Urine, Clean Catch Streptococcus pneumoniae Antigen (M - Final 01/31/23 14:06 Nasal Secretion SARS-CoV-2 & FLU Antigen (Rapid) - Final Radiography Diagnostic Testing: Radiology Impression Echocardiogram 02/02/23 11:25 Interpretation Summary The estimated ejection fraction is 60 %. Unable to assess diastolic dysfunction due to arrhythmia. Moderate mitral annular calcification. Mild diffuse mitral valve thickening. Mild focal aortic valve calcification. Normal LV systolic function Ordering Physician: Maurizio Wells Referring Physician: Rober Jordan Performed By: Antoinette Ladd RDCS, RVT Physical Exam Resp normal respiratory effort, no retractions, no use of accessory muscles and clear to auscultation bilaterally Cardio regular rate, regular rhythm, S1 normal heart sound and S2 normal heart sound GI normal to inspection, nondistended, normoactive bowel sounds and soft to palpation Neuro Sensorium / Orientation: awake and alert Assessment & Plan Assessment/Plan (1) Influenza A: (2) COPD exacerbation: PLAN: Plan 1. Influenza A infection with suspected COPD exacerbation * Positive for influenza A on admit. * Chest x-ray showed mild increased markings at lung bases, mild degree of vascular congestion. Patient with mild hypoxia on admit requiring 2 to 3 L nasal cannula. Denies history of COPD but uses a Trelegy inhaler at home and does have a history of tobacco use disorder. Symptoms appear consistent with COPD exacerbation secondary to flu infection. COVID-negative, urine antigens negative. Sputum culture with no growth. * Tamiflu. Azithromycin discontinued on 02/02. Incentive spirometer, Mucinex as needed. Patient weaned to room air at rest. Will need O2 ambulatory testing prior to discharge. 2. New onset Afib with RVR * Noted on telemetry on morning of 02/02. EKG showed A-fib with RVR, rate in the 140s. Patient asymptomatic. No previous history of A-fib. * Patient started on Eliquis 5 mg twice daily, Lopressor 25 mg twice daily, IV Lopressor 5 mg every 6 hours as needed. Echo ordered. * Developed Afib w RVR on the . Received bolus of IV diltiazem and diltiazem gtt. since changed over to metoprolol 50 mg twice daily. Chronic medical conditions: ? Hypertension: Continue home amlodipine and lisinopril. ? Daily alcohol use: Drinks 3 glasses of Chardonnay daily. No problems with withdrawal in the past. Has not triggered CIWA since admission, okay to continue monitoring. DVT prophylaxis: Lovenox CODE STATUS: Full code, verified Expected disposition: pending echocardiogram. Charges/Coding Visit Charges Inpatient E&M: 52316 Subs Hosp L2
[2023-02-04] MEDS: 0.9% Saline Lock 10 ML Syringe IV (10:46)
[2023-02-04 11:06] LABS: Bedside Glucose 215 mg/dL (74-106)
--- NOTE | 2023-02-04 15:54 | CHAPLAIN ---
Type of Pastoral Visit ___ Initial Visit _x__ Follow-up Visit ___ On-call Visit ___ General Patient Visit ___ Spiritual Assessment ___ Family Conference ___ Bereavement ___ Rapid Response ___ Code Blue ___ Other (describe below) Pastoral Care Referral From _x__ Patient ___ Family ___ Nurse ___ Physician ___ [facility] Partner ___ Pillow Agent ___ Other (describe below) Sacrament/Intervention _x__ Active listening ___ Anointing ___ Quaker ___ Bereavement ___ Communion ___ Christina exploration ___ ___ Life review ___ Prayer ___ Reconciliation ___ Sacrament of Sick _x__ Supportive presence ___ Wedding ___ Other (describe below) Pastoral Comments follow up to this patient to see how she was handling situation today; pt is more agreeable today and is pleased that the medical team has found her issue and knowing this makes her feel better; pt believes that issues are being addressed and that she can soon return home; prayer and presence welcomed
[2023-02-04 16:42] LABS: Bedside Glucose 207 mg/dL (74-106)
[2023-02-04] MEDS: Metoprolol Tartrate 50 MG Tablet PO (18:21)
[2023-02-04] MEDS: Atorvastatin Calcium 40 MG Tablet PO (21:50)
[2023-02-04] MEDS: MELATONIN 10 MG TABLET PO (22:04)
[2023-02-04 22:26] LABS: Bedside Glucose 166 mg/dL (74-106)
[2023-02-05 03:53] VITALS: BP 103/65; PULSE 81; RESP 18; TEMP 37.4; O2SAT 96
[2023-02-05 06:00] VITALS: BP 103/65; PULSE 81; RESP 18; TEMP 37.3; O2SAT 97
[2023-02-05] MEDS: Insulin Lispro 100 UNIT/ML INSULN.PEN SC ×2 (06:28→11:25)
[2023-02-05 06:50] LABS: Bedside Glucose 163 mg/dL (74-106)
[2023-02-05 08:32] VITALS: BP 139/97; PULSE 112; RESP 18; TEMP 37; O2SAT 94
[2023-02-05] MEDS: APIXABAN 5 MG TABLET PO (08:42)
[2023-02-05] MEDS: Oseltamivir Phosphate 30 MG Capsule PO (08:42)
[2023-02-05 08:43] VITALS: PULSE 112
[2023-02-05] MEDS: guaiFENesin 1,200 MG Tablet 1200 MG PO (08:43)
[2023-02-05] MEDS: Aspirin E.C. 81 MG Tablet PO (08:43)
[2023-02-05] MEDS: Metoprolol Tartrate 50 MG Tablet PO (08:43)
--- NOTE | 2023-02-05 08:56 | PN.HOSP_ITS ---
Subjective Subjective Feels well. No events overnight. Objective Data Objective Data Vital Signs: Vital Signs Temp Pulse Resp BP Pulse Ox O2 Del Method O2 Flow Rate 37.0 C 112 H 18 139/97 H 94 Room Air 2 02/05/23 08:32 02/05/23 08:43 02/05/23 08:32 02/05/23 08:32 02/05/23 08:32 02/05/23 08:32 02/05/23 06:00 Oxygen Flow Rate (L/min) 2 Oxygen Delivery Method Room Air Weight: 84.8 kg Body Mass Index (BMI) 35.3 Intake & Output: Intake and Output for Last 24 Hours 02/03/23 02/04/23 02/05/23 23:59 23:59 23:59 Intake Total 845.00 / 845.00 767.92 / 767.92 Balance 845.00 / 845.00 767.92 / 767.92 Lab / Micro Data 02/01/23 07:24 02/04/23 05:45 Labs: Laboratory Results - last 24 hr 02/04/23 10:43: POC Glucose 215 H 02/04/23 16:12: POC Glucose 207 H 02/04/23 21:57: POC Glucose 166 H 02/05/23 06:27: POC Glucose 163 H Micro: Microbiology 01/31/23 20:40 Sputum, Expectorated/Coughed Gram Stain - Final 01/31/23 20:40 Sputum, Expectorated/Coughed Respiratory Culture - Final 01/31/23 19:19 Mucosa - Nasopharyngeal Respiratory Panel (PCR) - Final Influenza A (Subtype H1) 01/31/23 18:24 Urine, Clean Catch Legionella Antigen - Final 01/31/23 18:24 Urine, Clean Catch Streptococcus pneumoniae Antigen (M - Final 01/31/23 14:06 Nasal Secretion SARS-CoV-2 & FLU Antigen (Rapid) - Final Physical Exam Const alert and no apparent distress Resp normal respiratory effort, no retractions, no use of accessory muscles and clear to auscultation bilaterally Cardio regular rate, regular rhythm, S1 normal heart sound and S2 normal heart sound GI normal to inspection, nondistended, normoactive bowel sounds, soft to palpation, non-tender and non-distended Psych affect normal Assessment & Plan Assessment/Plan (1) Influenza A: (2) COPD exacerbation: PLAN: Plan 1. Influenza A infection with suspected COPD exacerbation * Positive for influenza A on admit. * Chest x-ray showed mild increased markings at lung bases, mild degree of vascular congestion. Patient with mild hypoxia on admit requiring 2 to 3 L nasal cannula. Denies history of COPD but uses a Trelegy inhaler at home and does have a history of tobacco use disorder. Symptoms appear consistent with COPD exacerbation secondary to flu infection. COVID-negative, urine antigens negative. Sputum culture with no growth. * Tamiflu. Azithromycin discontinued on 02/02. Incentive spirometer, Mucinex as needed. Patient weaned to room air at rest. Will need O2 ambulatory testing prior to discharge. 2. New onset Afib with RVR * Noted on telemetry on morning of 02/02. EKG showed A-fib with RVR, rate in the 140s. Patient asymptomatic. No previous history of A-fib. * Patient started on Eliquis 5 mg twice daily, Lopressor 25 mg twice daily, IV Lopressor 5 mg every 6 hours as needed. Echo ordered. * Developed Afib w RVR on the . Received bolus of IV diltiazem and diltiazem gtt. since changed over to metoprolol 50 mg twice daily. * Monitored overnight, had some tachycardia, but overall improved. Chronic medical conditions: ? Hypertension: Continue home amlodipine and lisinopril. ? Daily alcohol use: Drinks 3 glasses of Chardonnay daily. No problems with withdrawal in the past. Has not triggered CIWA since admission, okay to continue monitoring. DVT prophylaxis: Lovenox CODE STATUS: Full code, verified Expected disposition: pending echocardiogram.
--- NOTE | 2023-02-05 10:45 | DS.PCM_ITS ---
Providers Date of Admission: 01/31/23 Primary Care Physician: Dr. Rober Jordan MD Reason For Visit: BRONCHITIS, BRONCHOSPASM Diagnosis Discharge Diagnosis (1) Influenza A: Status: Acute Code(s): J10.1 - Influenza due to other identified influenza virus with other respiratory manifestations (2) COPD exacerbation: Status: Chronic Code(s): J44.1 - Chronic obstructive pulmonary disease with (acute) exacerbation Plan 1. Influenza A infection with suspected COPD exacerbation * Positive for influenza A on admit. * Chest x-ray showed mild increased markings at lung bases, mild degree of vascular congestion. Patient with mild hypoxia on admit requiring 2 to 3 L nasal cannula. Denies history of COPD but uses a Trelegy inhaler at home and does have a history of tobacco use disorder. Symptoms appear consistent with COPD exacerbation secondary to flu infection. COVID-negative, urine antigens negative. Sputum culture with no growth. * Tamiflu. Azithromycin discontinued on 02/02. Incentive spirometer, Mucinex as needed. Patient weaned to room air at rest. Will need O2 ambulatory testing prior to discharge. 2. New onset Afib with RVR * Noted on telemetry on morning of 02/02. EKG showed A-fib with RVR, rate in the 140s. Patient asymptomatic. No previous history of A-fib. * Patient started on Eliquis 5 mg twice daily, Lopressor 25 mg twice daily, IV Lopressor 5 mg every 6 hours as needed. Echo ordered. * Developed Afib w RVR on the . Received bolus of IV diltiazem and diltiazem gtt. since changed over to metoprolol 50 mg twice daily. * Monitored overnight, had some tachycardia, but overall improved. Chronic medical conditions: ? Hypertension: Continue home amlodipine and lisinopril. ? Daily alcohol use: Drinks 3 glasses of Chardonnay daily. No problems with withdrawal in the past. Has not triggered CIWA since admission, okay to continue monitoring. DVT prophylaxis: Lovenox CODE STATUS: Full code, verified Expected disposition: pending echocardiogram. Medications at Discharge Home Medications albuterol sulfate 90 mcg/actuation aerosol inhaler 2 puff inhalation Q4H PRN PRN Wheezing 03/08/20 amlodipine 10 mg tablet 10 mg PO DAILY 03/08/20 aspirin 81 mg tablet,delayed release 81 mg PO DAILY@0800 03/08/20 atorvastatin 40 mg tablet 40 mg PO QHS 03/08/20 lisinopril 40 mg tablet 40 mg PO DAILY 03/08/20 vitamins A,C,Z-qczw-epajsf 2,148 mcg-113 mg-45 mg-17.4 mg tablet 1 ea PO DAILY 03/08/20 fluticasone fur. 100 mcg-umeclid 62.5 mcg-vilant 25 mcg inhalat.powder (Trelegy Ellipta) 1 inh inhalation Q24H 01/31/23 metformin 500 mg tablet 500 mg PO DAILY 01/31/23 apixaban 5 mg tablet (Eliquis) 5 mg PO BID #60 tabs 02/05/23 metoprolol tartrate 50 mg tablet 50 mg PO BID #60 tabs 02/05/23 oseltamivir 30 mg capsule 30 mg PO BID #1 cap 02/05/23 Hospital Course Operations None Procedures None Summary of Care Provided Minutes Spent on Discharge: 32 Hospital Course: Pt developed influenza A. She developed afib w RVR. Required diltiazem bolus and gtt. Remained in afib, HR improved with metoprolol 50 BID. Anticoagulated with apixaban. Weight / BMI Weight Weight: 84.8 kg Body Mass Index (BMI) 35.3 ABG / Lab / Microbiology Data 02/01/23 07:24 02/04/23 05:45 Laboratory: Laboratory Results - last 24 hr 02/04/23 10:43: POC Glucose 215 H 02/04/23 16:12: POC Glucose 207 H 02/04/23 21:57: POC Glucose 166 H 02/05/23 06:27: POC Glucose 163 H Microbiology: Microbiology 01/31/23 20:40 Sputum, Expectorated/Coughed Gram Stain - Final 01/31/23 20:40 Sputum, Expectorated/Coughed Respiratory Culture - Final 01/31/23 19:19 Mucosa - Nasopharyngeal Respiratory Panel (PCR) - Final Influenza A (Subtype H1) 01/31/23 18:24 Urine, Clean Catch Legionella Antigen - Final 01/31/23 18:24 Urine, Clean Catch Streptococcus pneumoniae Antigen (M - Final 01/31/23 14:06 Nasal Secretion SARS-CoV-2 & FLU Antigen (Rapid) - Final D/C Instructions Discharge Diet: No restrictions Meaningful Use Info Meaningful Use Diagnoses (Choose all that apply): None applicable Discharge Plan Admission Admit Date/Time: 01/31/23 17:17 Primary Reason for Your Visit: influenza. atrial fibrillation with RVR. Attending Provider: Hari Iniguez Primary Care Provider: Rober Jordan Consulting Providers: Meng Wells; Maurizio Wells Instructions Patient Instructions: AFib Preventing Stroke, AFib Additional Instructions / Restrictions: You developed atrial fibrillation while you were here. You were treated with medication to control your heart rate. You will need to be blood thinners to prevent a stroke. Please follow up with cardiology as outpatient. Discharge Orders/Prescriptions Prescriptions: New Eliquis 5 mg Tablet 5 mg PO BID Qty: 60 0RF metoprolol tartrate 50 mg Tablet 50 mg PO BID Qty: 60 0RF oseltamivir 30 mg Capsule 30 mg PO BID Qty: 1 0RF Continued atorvastatin 40 MG tablet 40 mg PO QHS aspirin 81 MG tablet 81 mg PO DAILY@0800 amlodipine 10 MG tablet 10 mg PO DAILY albuterol sulfate 8.5 GM HFA aerosol inhaler 2 puff INHALATION Q4H PRN PRN (Reason: Wheezing) Patient Comments: TAKE 2 PUFFS BY MOUTH EVERY 4 HOURS NEEDED lisinopril 40 MG tablet 40 mg PO DAILY vitamins A,C,Q-liim-tzvopg 1 EACH tablet 1 ea PO DAILY Trelegy Ellipta 100-62.5-25 mcg blister with device 1 inh INHALATION Q24H Patient Comments: INHALE 1 PUFF INSTRUCTED ONCE DAILY. Held metformin 500 mg tablet 500 mg PO DAILY Hold Instructions: Resume on 02/10/23. Patient Comments: TAKE 1 TABLET BY MOUTH EVERY DAY WITH BREAKFAST Referrals / Follow Up: [facility] [Provider Group] - Within 1 Month Rober Jordan MD [Primary Care Provider] - Within 2 Weeks Disposition Disposition (needs filled in before D/C Order can be placed): Home, Self Care Charges/Coding Visit Charges Inpatient E&M: 01066 Disch Hosp >30min
--- NOTE | 2023-02-05 11:57 | PHA.DC.MC.R ---
Pharmacy [facility] has performed discharge medication reconciliation and counseling for this patient. 1. APIXABAN 5MG PO BID 2. METOPROLOL TARTRATE 50MG PO BID 3. OSELTAMIVIR 30MG PO TONIGHT (1 DOSE) The patient's discharge medication list was reviewed for discrepancies and discrepancies were resolved. The patient was counseled on the following discharge medications and changes in medications for homegoing were reviewed. The Reason for Use, instructions for use, and potential side effects were reviewed for all new medications. The patient's questions regarding all of their medications were answered. The patient was able to verbally demonstrate an understanding of their discharge medications. Medications at Discharge Home Medications albuterol sulfate 90 mcg/actuation aerosol inhaler 2 puff inhalation Q4H PRN PRN Wheezing 03/08/20 amlodipine 10 mg tablet 10 mg PO DAILY 03/08/20 aspirin 81 mg tablet,delayed release 81 mg PO DAILY@0800 03/08/20 atorvastatin 40 mg tablet 40 mg PO QHS 03/08/20 lisinopril 40 mg tablet 40 mg PO DAILY 03/08/20 vitamins A,C,K-rudv-crqyrz 2,148 mcg-113 mg-45 mg-17.4 mg tablet 1 ea PO DAILY 03/08/20 fluticasone fur. 100 mcg-umeclid 62.5 mcg-vilant 25 mcg inhalat.powder (Trelegy Ellipta) 1 inh inhalation Q24H 01/31/23 metformin 500 mg tablet 500 mg PO DAILY 01/31/23 apixaban 5 mg tablet (Eliquis) 5 mg PO BID #60 tabs 02/05/23 metoprolol tartrate 50 mg tablet 50 mg PO BID #60 tabs 02/05/23 oseltamivir 30 mg capsule 30 mg PO BID #1 cap 02/05/23
[2023-02-05 12:00] VITALS: BP 133/89; PULSE 107; RESP 18; TEMP 36.9; O2SAT 95
[2023-02-05 13:53] VITALS: O2SAT 90; O2SAT 95
--- NOTE | 2023-02-05 14:20 | CASEMGMT ---
Patient has order for discharge. Patient discharging on Eliquis. MELINDA PAPPAS called [facility], copay is $154.18 as patient is in her donut hole. MELINDA PAPPAS in to discuss needs at discharge. Patient denies needs at discharge, has help at home. MELINDA PAPPAS provided patient with 30day savings card. Patient had no further questions or concerns at this time.
[2023-02-05 14:37] LABS: Bedside Glucose 241 mg/dL (74-106)
== END 2023-02-05 15:46 | disposition home or self-care (01) | DRG 194 ==
LOC: ED 15:56 → PCU 16:49
PROVIDERS: Family Medicine; Hospitalist; Internal Medicine; Admitting Provider Internal Medicine; Emergency Provider Emergency Medicine; PCP Family Medicine
DX: J10.1 Influenza due to other identified influenza virus with other respiratory manifestations (principal); J44.1 Chronic obstructive pulmonary disease with (acute) exacerbation; J44.0 Chronic obstructive pulmonary disease with (acute) lower respiratory infection; E11.9 Type 2 diabetes mellitus without complications; I48.91 Unspecified atrial fibrillation; I10 Essential (primary) hypertension; J20.9 Acute bronchitis, unspecified; E78.00 Pure hypercholesterolemia, unspecified; E66.9 Obesity, unspecified; R09.02 Hypoxemia; Z68.35 Body mass index [BMI] 35.0-35.9, adult; Z11.52 Encounter for screening for COVID-19; Z79.51 Long term (current) use of inhaled steroids; Z79.82 Long term (current) use of aspirin; Z79.84 Long term (current) use of oral hypoglycemic drugs; Z79.899 Other long term (current) drug therapy; Z87.891 Personal history of nicotine dependence
CPT/HCPCS: 36415; 71045; 80048; 82962; 83880; 84443; 84484; 85025; 87070; 87205; 87428; 87449; 87633; 93005; 93306; 94640; 94668; 99252; 99285; 99406; A4216; G0463

== ENCOUNTER 2024-09-20 14:01 | Inpatient (IN) | payer MEDICARE, OTHER, SELFPAY ==
[2024-09-20] VITALS (23 sets, daily range): BP systolic 111–158; BP diastolic 50–74; PULSE 94–117; RESP 20–28; TEMP 36.4–37.1; O2SAT 84–94; BMI 37.1; BMI 36.8
--- NOTE | 2024-09-20 14:15 | EKG12_ITS ---
Test Reason : SOB Blood Pressure : */* mmHG Vent. Rate : 109 BPM Atrial Rate : 109 BPM P-R Int : 176 ms QRS Dur : 68 ms QT Int : 316 ms P-R-T Axes : * 30 33 degrees QTcB Int : 425 ms Sinus tachycardia Low voltage QRS Nonspecific ST abnormality Abnormal ECG Confirmed by XIOMY FOX, ELAINE ([id number]), telegraph editor CAROL MURGUIA ([id number]) on 09/22/2024 7:34:47 AM Referred By: Joshua Castañeda Confirmed By: ELAINE STAUFFER MD
--- NOTE | 2024-09-20 14:30 | RAD_ITS ---
PROCEDURE: CHEST 1 VIEW (PORTABLE) 09/20/2024 REASON FOR EXAM: SOB TECHNIQUE: Frontal view of the chest. COMPARISON: Chest x-ray 01/31/2023. FINDINGS: Hardware: None. Heart: Mild cardiomegaly. Lungs: Airspace opacities in the lower lungs may represent pulmonary edema or pneumonia. Obliteration of the costophrenic angles consistent with pleural effusions. No pneumothorax. Bones: No acute bony abnormalities. RAD/Chest 1 View (Portable) IMPRESSION: Airspace opacities in the lower lungs may represent pulmonary edema, CHF or pne umonia. Obliteration of the costophrenic angles consistent with pleural effusions. Reading Location: [id number]
--- NOTE | 2024-09-20 14:57 | ED.VIS.DYS ---
HPI History of Present Illness Chief Complaint: Shortness of Breath Informant: patient and family Onset/Context/Timing Onset: Yesterday Context: sudden (Per patient. Son thought it may have started a day or 2 before.) Timing: Continuous Quality: Positive for Dyspnea on exertion, Orthopnea (Stable 3 pillow orthopnea since 2010) and Wheezing; Negative for PND Current Severity: Mild Maximum Severity: Severe Worsened by: Exertion, Lying flat and Coughing Relieved by: Nothing Associated Symptoms cough; Negative for rhinorrhea, post nasal drip, ear pain, fever, sore throat, subjective, chills, sweats, clear sputum, white sputum, yellow sputum or green sputum Chest Pain: Positive for None Narrative Narrative: Patient is a 74-year-old woman with history of hypertension, diabetes, hyperlipidemia, congestive heart failure on anticoagulant. She presents because of increased shortness of breath. She denies fever, chills night sweats. She denies rhinorrhea or congestion. She has chronic postnasal drainage. She denies sore throat. She has a cough she states she always has a cough. The cough is slightly worse. Past weekend she had ill contacts. She was out of birthday democrat. She has no history of PE or DVT. She informed me as I was walking out that she has a history of COPD. She is on a rescue inhaler. Review of medical list indicates she is on a anticoagulant. She states she was placed on it does not know why. Son believes she was placed on it because of history of PE. She denies abdominal pain, nausea, vomiting or diarrhea. She denies dysuria, frequency, urgency or hematuria. PE Risk Factors: Positive for Prior DVT or PE and Recent travel; Negative for Cancer, OCP + Smoking + > 35, Recent immobilization or Recent surgery Prior similar symptoms: No Recent Illness/Hospitalization: No PFSH PFS Medical History Legally blind COPD (chronic obstructive pulmonary disease) Obesity Diabetes Hypercholesteremia HTN (hypertension) Pneumonia COVID Home Medications ?Medication ?Instructions ?Recorded ?Last Taken ?Type albuterol sulfate 90 mcg/actuation 2 puff inhalation Q4H PRN PRN 03/08/20 Unknown History aerosol inhaler Wheezing amlodipine 10 mg tablet 10 mg PO DAILY 03/08/20 Unknown History aspirin 81 mg tablet,delayed 81 mg PO DAILY@0800 03/08/20 Unknown History release atorvastatin 40 mg tablet 40 mg PO QHS 03/08/20 Unknown History lisinopril 40 mg tablet 40 mg PO DAILY 03/08/20 Unknown History vitamins A,C,B-eodv-mufuxp 2,148 1 ea PO DAILY 03/08/20 Unknown History mcg-113 mg-45 mg-17.4 mg tablet fluticasone fur. 100 mcg-umeclid 1 inh inhalation Q24H 01/31/23 Unknown History 62.5 mcg-vilant 25 mcg inhalat.powder (Trelegy Ellipta) metformin 500 mg tablet 500 mg PO DAILY 01/31/23 Unknown History Held on 02/05/23. Instructions: Resume on 02/10/23. apixaban 5 mg tablet (Eliquis) 5 mg PO BID #60 tabs 02/05/23 Unknown Rx metoprolol tartrate 50 mg tablet 50 mg PO BID #60 tabs 02/05/23 Unknown Rx oseltamivir 30 mg capsule 30 mg PO BID #1 cap 02/05/23 Unknown Rx Allergy/AdvReac Type Severity Reaction Status Date / Time venom-honey bee Allergy Severe Swelling Verified 09/20/24 14:07 codeine Allergy Itching Verified 09/20/24 14:07 Penicillins (PCN) Allergy Itching Verified 09/20/24 14:07 Sulfa (Sulfonamide Allergy Itching Verified 09/20/24 14:07 Antibiotics) Tetanus Vaccines and Toxoid Allergy NEEDS Verified 09/20/24 14:07 FOLLOW-UP Family History Mother Heart failure Father Heart failure Social History (Updated 09/20/24 @ 15:[address] Joshua Castañeda MD) household members: family Smoking Status: Former smoker ROS ROS ED Constitutional Constitutional ED: Denies chills, fever(s) or sweats Eyes Eyes: Reports other Details: Patient is legally blind. ENT ENT ED: Denies ear pain, rhinorrhea or sore throat Cardiovascular Cardiovascular: Reports orthopnea; Denies chest pain, palpitations, paroxysmal nocturnal dyspnea or racing heartbeat Respiratory/Chest Respiratory/Chest: Reports cough, dyspnea, dyspnea on exertion and orthopnea; Denies paroxysmal nocturnal dyspnea or sputum Gastrointestinal Gastrointestinal: Denies abdominal pain, melena, nausea or vomiting Genitourinary Genitourinary ED: Denies dysuria, hematuria or urinary frequency Musculoskeletal Musculoskeletal: Denies arthralgias or myalgias Integumentary Denies rash Neurologic Neurologic: Denies headache(s), paresthesias or weakness Psychiatric Psychiatric: Denies anxiety or depression Hematologic/Lymphatic Hematologic/Lymphatic: Denies easy bleeding or easy bruising EXAM Physical Exam Const Vital Signs: 09/20/24 14:02 09/20/24 14:08 09/20/24 14:39 Temperature 98.5 F Temperature Source Oral Pulse Rate 115 H Respiratory Rate 20 H Respiratory Effort Respiratory Pattern Blood Pressure 123/52 H Blood Pressure Mean 75 Pulse Ox 84 92 Oxygen Delivery Method Room Air Nasal Cannula Oxygen Flow Rate (L/min) 2 2 09/20/24 14:40 09/20/24 14:42 09/20/24 15:01 Temperature Temperature Source Pulse Rate Respiratory Rate Respiratory Effort Short of Breath Respiratory Pattern Tachypnea Blood Pressure 111/50 L Blood Pressure Mean 70 Pulse Ox 93 Oxygen Delivery Method Nasal Cannula Nasal Cannula Oxygen Flow Rate (L/min) 2 2 09/20/24 15:05 09/20/24 15:20 09/20/24 16:00 Temperature 98.5 F Temperature Source Oral Pulse Rate 107 H 101 H Respiratory Rate 25 H 22 H Respiratory Effort Respiratory Pattern Blood Pressure 158/62 H 113/56 L Blood Pressure Mean 94 75 Pulse Ox 93 Oxygen Delivery Method Nasal Cannula Oxygen Flow Rate (L/min) 2 09/20/24 16:22 Temperature Temperature Source Pulse Rate 112 H Respiratory Rate 26 H Respiratory Effort Respiratory Pattern Blood Pressure Blood Pressure Mean Pulse Ox Oxygen Delivery Method Oxygen Flow Rate (L/min) Positive well nourished and well developed Constitutional Narrative: Vital signs remarkable for pulse ox 84% on room air. She is tachycardic and tachypneic. She is breathing quicker than 20 times a minute. There is minimal use of accessory muscles. On 2 L she is saturating 92% when I examined her. General Appearance ED: well developed and pallor HEENT Reports dry mucous membranes HEENT Narrative: Head is atraumatic and normocephalic. Ears normal. Nares patent. Posterior pharynx is normal. Uvula is midline. There is no deviation tongue with protrusion. Mouth ED: Yes dry mucous membranes Mouth: dry mucous membranes Eyes PERRL and EOMs intact bilaterally General Eye ED: Yes pale conjunctiva; Negative for scleral icterus Neck no lymphadenopathy, supple, no meningeal signs and no JVD Resp No normal respiratory effort and No clear to auscultation bilaterally Resp Narrative: Rales bilaterally worse left. There is egophony increased vocal fremitus on the left lower and mid lung field. There is slight wheezing noted bilaterally with forced expiration. Cardio regular rhythm, S1 normal heart sound, S2 normal heart sound and no murmurs Rate: tachycardic GI non-tender and no masses Auscultation: hypoactive bowel sounds Palpation: soft Back/Spine no CVA tenderness Extremity Extremity Narrative: There is mild edema of the lower extremities. Neuro oriented x3, CN's II-XII intact bilaterally and no sensory deficits noted Neeta Coma Scale: document GCS findings Spontaneous Obeys Commands Oriented 15 Sensorium / Orientation: alert Motor Exam: strength 5/5 throughout Psych mental status grossly normal Skin no wounds and skin turgor normal General Skin Exam: pallor; Negative for jaundice Sepsis Attestation Sepsis Alert: Yes Date exam was performed: 09/20/24 Time exam was performed: 16:00 Possible Source of Sepsis: Pulmonary Sepsis Organ Dysfunction Criteria Present: Lactic Acid > 2 mmol/L Fluid Resuscitation Fluid resuscitation indicated?: Yes (No fluids were given since patient is not hypotensive and there is concern that she may have heart failure.) MDM MDM MDM Narrative Medical decision making narrative: Clinically patient has pneumonia. Nurse triage orders were initiated. Additional orders were added by me. She will receive DuoNeb and albuterol. Since clinically she has pneumonia in my opinion she has pneumonia on x-ray will start on antibiotics. She has itching with penicillin and sulfa. Will treat with Rocephin since this is not a significant allergy and azithromycin. Since she has history of COPD and is wheezing we will also administer Solu-Medrol. Patient was informed she will require admission to the hospital. ABG was obtained to assess acid-base status and more importantly CO2. Since the radiologist is reading possible pulmonary edema versus CHF versus pneumonia we will obtain a BMP since she does report history of CHF. History & Record Review Additional record(s) reviewed:: Prior outpatient record (Pulmonary consult February 13, 2023 for acute bronchitis and bronchospasm. Note was authored by Catie Huang. She was admitted in January 2023 for respiratory issues. Discharge summary authored by Dr. Hari Iniguez was reviewed.) and Prior labs (Prior H&H obtained February 01, 2023 was 14.6 and 43.2.) Lab Data Attestation: I reviewed the patient's lab results. Lab results narrative: White count is elevated at 16.4. H&H is 6.9 and 23.9. In light of the type and cross for 2 units of blood. This is probably contributing to her dyspnea. Troponin slightly elevated at 29. Lactate elevated 3.0. Glucose elevated 210 with a normal CO2 of 21.6 and anion gap of 16. Labs: Laboratory Results - last 24 hr 09/20/24 09/20/24 09/20/24 14:45 15:15 15:30 WBC 16.4 H RBC 2.73 L Hgb 6.9 L Hct 23.9 L MCV 87.5 MCH 25.3 L MCHC 28.9 L RDW Std Deviation 61.2 H RDW Coeff of Rashaad 19.5 H Plt Count 309 MPV 9.4 Immature Gran % (Auto) 0.800 Neut % (Auto) 87.1 H Lymph % (Auto) 3.5 L [place] % (Auto) 8.2 Eos % (Auto) 0.2 Baso % (Auto) 0.2 Absolute Neuts (auto) 14.3 H Absolute Lymphs (auto) 0.57 L Nucleated RBC % 0.2 Sodium 135 Potassium 4.3 Chloride 98 Carbon Dioxide 21.6 Anion Gap 16 H BUN 15 Creatinine 0.71 Estim Creat Clear Calc 61.72 Est GFR (MDRD) Non-Af 88 BUN/Creatinine Ratio 21.4 H Glucose 210 H Lactic Acid 3.0 H* Calcium 8.2 Troponin T High Sens 29 H Blood Type A POSITIVE Antibody Screen NEGATIVE Crossmatch See Detail Patient was told she will receive 1 unit of blood. Patient was reassessed at 1636. Her sat now is 90% on oxygen. ABG Data ABG results: ABG 09/20/24 15:37 Specimen Type ART Sample Site R Brach pH 7.48 H Bicarbonate Actual 26.5 H Total CO2 28 Base Excess 3 H O2 Saturation 92 L O2 % 2.0 ABG pCO2 35.6 ABG pO2 59 L O2 Delivery Device Cannula Vent Mode Not entered Radiography Diagnostic Testing: Clinical Impression(s) from Imaging Studies Chest X-Ray 09/20/24 14:30 IMPRESSION: Airspace opacities in the lower lungs may represent pulmonary edema, CHF or pneumonia. Obliteration of the costophrenic angles consistent with pleural effusions. Reading Location: [facility] Differential Diagnosis Chest pain/SOB: pulmonary embolism Reason(s) PE less likely: Positive for Other (History and physical exam is consistent with infection.) Management Discussion w/another healthcare provider: Hospitalist (Case was discussed with Dr. Hari Iniguez. Full admission to PCU) Critical Care Time Critical Care Time: Yes Critical care time (excluding procedures): 30-74 minutes (32), Including time spent: (History, physical, documentation, review of prior records, initiation of treatment for community-acquired pneumonia, symptomatic anemia with blood transfusion), Discussing w/Patient &/or Family/County Surveyor (Patient and son were informed of results. She also was informed that she will require blood.), Discussing w/Consultants and Arranging Admission or Transfer Discharge Plan Triage Chief Complaint: Shortness of Breath ED Provider: Joshua Castañeda Dx/Rx/DC Orders Clinical Impression: Community acquired pneumonia, HTN (hypertension), COPD (chronic obstructive pulmonary disease), Acute hypoxemic respiratory failure, Acidosis, lactic, Type 2 diabetes mellitus with hyperglycemia, without long-term current use of insulin, Acute bronchospasm, Elevated troponin, Symptomatic anemia, Signs and symptoms of anemia Prescriptions: No Action atorvastatin 40 MG tablet 40 mg PO QHS aspirin 81 MG tablet 81 mg PO DAILY@0800 amlodipine 10 MG tablet 10 mg PO DAILY albuterol sulfate 8.5 GM HFA aerosol inhaler 2 puff INHALATION Q4H PRN PRN (Reason: Wheezing) Patient Comments: TAKE 2 PUFFS BY MOUTH EVERY 4 HOURS NEEDED lisinopril 40 MG tablet 40 mg PO DAILY vitamins A,C,E-tpab-xzexhy 1 EACH tablet 1 ea PO DAILY metformin 500 mg tablet 500 mg PO DAILY Patient Comments: TAKE 1 TABLET BY MOUTH EVERY DAY WITH BREAKFAST Trelegy Ellipta 100-62.5-25 mcg blister with device 1 inh INHALATION Q24H Patient Comments: INHALE 1 PUFF INSTRUCTED ONCE DAILY. Eliquis 5 mg Tablet 5 mg PO BID Qty: 60 0RF metoprolol tartrate 50 mg Tablet 50 mg PO BID Qty: 60 0RF oseltamivir 30 mg Capsule 30 mg PO BID Qty: 1 0RF Primary Care Provider: Rober Jordan Referrals: Rober Jordan MD [Primary Care Provider] - Print Language: Filipino
[2024-09-20 14:58] LABS: Hematocrit 23.9 % (37-47); Hemoglobin 6.9 g/dL (12.0-15.0); Immature Granulocytes Count 0.130 X10^3/uL (0.0-0.0); Mean Corp Hgb Conc 28.9 g/dL (32-36); Mean Corpuscular Volume 87.5 fL (81-99); Mean Platelet Vol. 9.4 fl (6.2-12.0); NRBC Flagged by Analyzer 0.2 % (0-5); POSITIVE DIFFERENTIAL YES; Platelet Count 309 K/mm3 (150-450); RBC Distribution Width CV 19.5 % (11.6-14.6); RBC Distribution Width SD 61.2 fl (35.1-43.9); Red Blood Count 2.73 M/mm3 (4.2-5.4); White Blood Count 16.4 K/mm3 (4.4-11.0)
[2024-09-20] MEDS: Albuterol 2.5 MG/3 ML VIAL.NEB. INHALATION ×3 (15:18→17:21)
[2024-09-20] MEDS: Ceftriaxone 2 GM in 0.9% Normal Saline (50mL MB+) 50 ML IV (15:37)
[2024-09-20 15:40] LABS: Anion Gap 16 (5-15); BUN 15 mg/dL (4-19); BUN/Creat Ratio 21.4 RATIO (10-20); Calcium,Total 8.2 mg/dL (7.6-11.0); Carbon Dioxide 21.6 mmol/L (21.0-32.0); Chloride 98 mmol/L (98-108); Estimated Creatinine Clearance 61.72 ml/min (50-250); Glucose 210 mg/dL (70-99); Potassium 4.3 mmol/L (3.3-5.1)
[2024-09-20 15:41] LABS: Base Excess 3 mmol/L (-2 to +2); FI02 2.0; PO2 59 mmHG (75-100); SITE R Brach; SO2 92 % (95-99)
[2024-09-20 16:05] LABS: Troponin T High Sensitivity 29 ng/L (<=14)
--- NOTE | 2024-09-20 16:14 | ED.RN ---
Critical Lactic Acid of 3.0. Dr. Castañeda notified.
[2024-09-20] MEDS: Azithromycin 500 MG in 0.9% Normal Saline (250mL Bag) 250 ML 255 MG IV (16:24)
[2024-09-20 17:14] LABS: Troponin T High Sens 2 HR 25 ng/L (<=14)
--- NOTE | 2024-09-20 17:26 | ED.RN ---
Dr Castañeda notified of sepsis alert
--- NOTE | 2024-09-20 18:00 | HP.PCM.HOS_ITS ---
HPI - General General Date of Admission: 09/20/24 Date of Service: 09/20/24 Chief Complaint: Short of breath HPI Narrative YUE LOPEZ, is a 74 F who presents with feeling short of breath. This is a 74-year-old type II diabetic presents with 1 day history of shortness of breath. He been doing okay up until that point but her son was concerned and brought her to the emergency room. In the emergency room, she was noted to have a hemoglobin of 6.9. She did have a chest x-ray that showed a left lower lobe pneumonia. Patient was ordered 1 unit packed red blood cells as well as antibiotics with ceftriaxone and azithromycin. She was also placed on oxygen. Patient denies any hematochezia or melena. Her hemoglobin from January 2023 was 14.6 at that time. [facility] Medical History (Updated 09/20/24 @ 18:[address] Hari Iniguez, DO) Legally blind COPD (chronic obstructive pulmonary disease) Obesity Diabetes Hypercholesteremia HTN (hypertension) Pneumonia COVID Home Medications ?Medication ?Instructions ?Recorded ?Last Taken ?Type albuterol sulfate 90 mcg/actuation 2 puff inhalation Q 4H PRN PRN 03/08/20 Unknown History aerosol inhaler Wheezing amlodipine 10 mg tablet 10 mg PO DAILY BP 03/08/20 0 09/20/24 History aspirin 81 mg tablet,delayed 81 mg PO DAILY@0800 dr charlotte carver 03/08/20 09/20/24 History release atorvastatin 40 mg tablet 80 mg PO QHS cholestreol 09/19/24 History lisinopril 40 mg tablet 20 mg PO DAILY BP 03/08/20 0 09/20/24 History metformin 500 mg tablet 500 mg PO DAILY diabetes 09/20/24 History apixaban 5 mg tablet (Eliquis) 5 mg PO BID blood thinn er #60 tabs 02/05/23 09/20/24 Rx metoprolol tartrate 50 mg tablet 50 mg PO BID BP #60 t abs 02/05/23 Unknown Rx ergocalciferol (vitamin D2) 1,250 1,250 mcg PO QWEEK d r ordered 09/20/24 09/18/24 History mcg (50,000 unit) capsule fluticasone fur. 100 mcg-umeclid 1 inh inhalation DONNA Y breathing 09/20/24 09/20/24 History 62.5 mcg-vilant 25 mcg inhalat.powder (Trelegy Ellipta) tirzepatide 2.5 mg/0.5 mL 2.5 mg subcut QWEEK weight 0 09/20/24 09/17/24 History subcutaneous pen injector (Lexie) vitamins A,C,U-pgcz-fbgvbl 2,148 1 tab PO BID eyes 06/1109/20/24 History mcg-113 mg-45 mg-17.4 mg tablet (PreserVision AREDS) Allergy/AdvReac Type Severity Reaction Status Date / Time venom-honey bee Allergy Severe Swelling Verified 09/20/24 14:07 codeine Allergy Itching Verified 09/20/24 14:07 Penicillins (PCN) Allergy Itching Verified 09/20/24 14:07 Sulfa (Sulfonamide Allergy Itching Verified 09/20/24 14:07 Antibiotics) Tetanus Vaccines and Toxoid Allergy NEEDS Verified 09/20/24 14:07 FOLLOW-UP Family History Mother Heart failure Father Heart failure Social History household members: family Smoking Status: Former smoker ROS ROS Narrative Denies any chest pain. All review of systems were negative except as mentioned above in the history of present illness and the other review of systems. Vital Signs Vital Signs Vital Signs: 09/20/24 14:02 09/20/24 14:08 09/20/24 14:39 Temperature 36.9 C Temperature Source Oral Pulse Rate 115 H Respiratory Rate 20 H Respiratory Effort Respiratory Pattern Blood Pressure 123/52 H Blood Pressure Mean 75 Blood Pressure Source Blood Pressure Position Blood Pressure Location Pulse Ox 84 92 Oxygen Delivery Method Room Air Nasal Cannula Oxygen Flow Rate (L/min) 2 2 09/20/24 14:40 09/20/24 14:42 09/20/24 15:01 Temperature Temperature Source Pulse Rate Respiratory Rate Respiratory Effort Short of Breath Respiratory Pattern Tachypnea Blood Pressure 111/50 L Blood Pressure Mean 70 Blood Pressure Source Blood Pressure Position Blood Pressure Location Pulse Ox 93 Oxygen Delivery Method Nasal Cannula Nasal Cannula Oxygen Flow Rate (L/min) 2 2 09/20/24 15:05 09/20/24 15:20 09/20/24 16:00 Temperature 36.9 C Temperature Source Oral Pulse Rate 107 H 101 H Respiratory Rate 25 H 22 H Respiratory Effort Respiratory Pattern Blood Pressure 158/62 H 113/56 L Blood Pressure Mean 94 75 Blood Pressure Source Blood Pressure Position Blood Pressure Location Pulse Ox 93 Oxygen Delivery Method Nasal Cannula Oxygen Flow Rate (L/min) 2 09/20/24 16:00 09/20/24 16:22 09/20/24 17:00 Temperature 36.9 C 37.0 C Temperature Source Oral Oral Pulse Rate 117 H 112 H 109 H Respiratory Rate 28 H 26 H 23 H Respiratory Effort Respiratory Pattern Blood Pressure 121/56 H 114/57 L Blood Pressure Mean 77 76 Blood Pressure Source Blood Pressure Position Blood Pressure Location Pulse Ox 93 92 Oxygen Delivery Method Nasal Cannula Nasal Cannula Oxygen Flow Rate (L/min) 2 2 09/20/24 17:00 09/20/24 17:05 09/20/24 17:05 Temperature Temperature Source Pulse Rate 113 H Respiratory Rate 28 H Respiratory Effort Respiratory Pattern Blood Pressure 114/57 L Blood Pressure Mean 76 Blood Pressure Source Blood Pressure Position Blood Pressure Location Pulse Ox 88 Oxygen Delivery Method Nasal Cannula Oxygen Flow Rate (L/min) 2 09/20/24 17:06 09/20/24 17:10 09/20/24 17:15 Temperature 37.1 C 37.1 C Temperature Source Oral Pulse Rate 111 H 111 H Respiratory Rate 24 H 24 H Respiratory Effort Respiratory Pattern Blood Pressure 114/57 L 114/57 L Blood Pressure Mean 76 76 Blood Pressure Source Monitor Blood Pressure Position Semi-Fowlers Blood Pressure Location Right Arm Pulse Ox 91 91 91 Oxygen Delivery Method Nasal Cannula Nasal Cannula Oxygen Flow Rate (L/min) 2 3 09/20/24 17:21 09/20/24 17:58 09/20/24 17:59 Temperature 36.9 C 36.9 C Temperature Source Oral Oral Pulse Rate 108 H 113 H Respiratory Rate 26 H 26 H Respiratory Effort Respiratory Pattern Blood Pressure 120/54 L 111/56 L 111/56 L Blood Pressure Mean 76 74 74 Blood Pressure Source Monitor Blood Pressure Position Semi-Fowlers Blood Pressure Location Pulse Ox 94 92 Oxygen Delivery Method Nasal Cannula Nasal Cannula Oxygen Flow Rate (L/min) 2 2 Weight Weight: 89.176 kg Body Mass Index (BMI) 37.1 Physical Exam Const alert and no apparent distress Constitutional Narrative: No respiratory distress. No conversational dyspnea. HEENT normocephalic and head/scalp atraumatic Resp Resp Narrative: Bibasilar crackles. No egophony. Cardio regular rate, regular rhythm, S1 normal heart sound and S2 normal heart sound GI normal to inspection, nondistended, normoactive bowel sounds, soft to palpation, non-tender and non-distended Extremity normal to inspection, full ROM and no clubbing, cyanosis or edema Neuro oriented x3, CN's II-XII intact bilaterally, moves all extremities and no focal motor deficits Sensorium / Orientation: awake and alert Psych affect normal Results Lab / Micro Data Attestation: I reviewed the patient's lab results. 09/20/24 14:45 09/20/24 14:45 Labs: Laboratory Results - last 24 hr 09/20/24 14:45: WBC 16.4 H, RBC 2.73 L, Hgb 6.9 L, Hct 23.9 L, MCV 87.5, MCH 25.3 L, MCHC 28.9 L, RDW Std Deviation 61.2 H, RDW Coeff of Rashaad 19.5 H, Plt Count 309, MPV 9.4, Immature Gran % (Auto) 0.800, Neut % (Auto) 87.1 H, Lymph % (Auto) 3.5 L, [place] % (Auto) 8.2, Eos % (Auto) 0.2, Baso % (Auto) 0.2, Absolute Neuts (auto) 14.3 H, Absolute Lymphs (auto) 0.57 L, Nucleated RBC % 0.2, Sodium 135, Potassium 4.3, Chloride 98, Carbon Dioxide 21.6, Anion Gap 16 H, BUN 15, Creatinine 0.71, Estim Creat Clear Calc 61.72, Est GFR (MDRD) Non-Af 88, B UN/Creatinine Ratio 21.4 H, Glucose 210 H, Calcium 8.2, Troponin T High Sens 29 H 09/20/24 15:15: Lactic Acid 3.0 H* 09/20/24 15:30: Blood Type A POSITIVE, Antibody Screen NEGATIVE, Crossmatch See Detail 09/20/24 16:39: Troponin T Hi Sens 2 Hr 25 H ABG Data ABG results: ABG 09/20/24 15:37 Specimen Type ART Sample Site R Brach pH 7.48 H Bicarbonate Actual 26.5 H Total CO2 28 Base Excess 3 H O2 Saturation 92 L O2 % 2.0 ABG pCO2 35.6 ABG pO2 59 L O2 Delivery Device Cannula Vent Mode Not entered Imaging Radiology Impression Chest X-Ray 09/20/24 14:30 IMPRESSION: Airspace opacities in the lower lungs may represent pulmonary edema, CHF or pneumonia. Obliteration of the costophrenic angles consistent with pleural effusions. Reading Location: [facility] Assessment & Plan Assessment/Plan (1) Pneumonia: PLAN: Suspected pneumococcal Plan is to continue the antibiotics of ceftriaxone and azithromycin. Pulmonary toilet. Mucinex. Check urinary antigen strep and Legionella. Check sputum culture. Lactic acid is elevated however it is difficult to discern how much of that is contributed by the metformin she takes as well as as shortness of breath. Clinically I do not feel the patient is septic. (2) Anemia: PLAN: Hemoglobin was normal back in 2022. No labs in the interim. I suspect her shortness of breath may be more so related with pneumonia and this anemia may be more chronic. Does appear to be normocytic at least based on MCV. Will check iron, TIBC, ferritin, folate and B12. Will see if they can add that onto the labs are drawn before the transfusion. Additionally, check TSH and Hemoccult. Suspect patient may need a gastroenterology evaluation but that may be need to be deferred to outpatient. (3) Elevated troponin: PLAN: Minimal elevation. Suspect demand ischemia from shortness of breath, pneumonia and anemia. Will check an echocardiogram if unremarkable then would not pursue any additional workup. PLAN: Plan Obesity class II: Complicates care and recovery Diabetes mellitus type 2: Hold on metformin as well as Mounjaro. Hypertension: Continue with lisinopril. Hyperlipidemia: Continue statin VTE prophylaxis with SCDs. Charges/Coding Visit Charges Inpatient E&M: 90353 Init Hosp L3
--- NOTE | 2024-09-20 18:32 | ECHOCS_ITS ---
Reason For Study Reason For Study: Elevated Troponin Procedure This was a 2D Doppler, Color Flow transthoracic echocardiogram. The study was technically difficult. Contrast injection was performed. Exam performed portable in patient room. Left Ventricle Normal LV size. Left ventricular systolic function is normal. The left ventricular ejection fraction is 70 %. Stage 2 diastolic dysfunction. No regional wall motion abnormalities noted. Right Ventricle Normal RV size. Normal systolic function. Atria Normal left atrium. Normal right atrium. Mitral Valve Bileaflet diffuse mitral valve thickening. Tricuspid Valve Normal tricuspid valve. Mild to moderate (1-2+) tricuspid valve insufficiency. Pulmonary artery systolic pressure is 49 mmHg. Aortic Valve Trisinus/trileaflet aortic valve. Mild focal aortic valve calcification. Pulmonic Valve The pulmonic valve is not well visualized. Great Vessels Normal aortic root. Pericardium/Pleural No pericardial effusion. Medication Diluted definity 1.5ml given slow IV push to enhance endocardial definition. MMode/2D Measurements & Calculations LVIDd: 4.5 cm IVSd: 0.73 cm LVOT diam: 1.8 cm LVIDs: 3.2 cm LVPWd: 0.97 cm FS: 29.4 % LVOT area: 2.7 cm2 LAV(MOD-bp): 50.0 ml LVAd ap4: 28.3 cm2 SV(MOD-sp4): 52.2 ml LAV(MOD-bp) Indexed: 26.4 ml/m2 LVLd ap4: 7.4 cm SI(MOD-sp4): 27.6 ml/m2 LAV(MOD-sp2): 58.1 ml EDV(MOD-sp4): 90.1 ml LAV(MOD-sp4): 42.4 ml EDV(sp4-el): 92.1 ml LVAs ap4: 17.1 cm2 LVLs ap4: 6.4 cm ESV(MOD-sp4): 37.9 ml ESV(sp4-el): 38.8 ml EF(MOD-sp4): 57.9 % EF(sp4-el): 57.9 % SV(sp4-el): 53.3 ml LA A4 area: 16.9 cm2 LA dimension(2D): 3.9 cm RA A4 area: 14.2 cm2 TAPSE: 2.2 cm Time Measurements MV dec time: 0.18 sec Doppler Measurements & Calculations MV E max elliot: 147.7 cm/sec Lat Peak E' Elliot: 5.9 cm/sec Med Peak E' Elliot: 6.7 cm/sec MV A max elliot: 101.8 cm/sec E/E' lat: 25.0 E/E' med: 22.1 MV E/A: 1.5 MV V2 max: 209.3 cm/sec MV P1/2t max elliot: 210.6 cm/sec Ao V2 max: 178.7 cm/sec MV max P.6 mmHg MV P1/2t: 67.6 msec Ao max P.8 mmHg MV V2 mean: 103.8 cm/sec MV dec slope: 912.7 cm/sec2 Ao V2 mean: 122.0 cm/sec MV mean P.4 mmHg MVA(P1/2t): 3.3 cm2 Ao mean P.8 mmHg MV V2 VTI: 44.0 cm Ao V2 VTI: 34.8 cm MVA(VTI): 1.7 cm2 AV (velocity ratio): 0.81 EVAN(I,D): 2.2 cm2 EVAN(V,D): 2.1 cm2 LV V1 max: 137.7 cm/sec SV(LVOT): 75.4 ml PA V2 max: 113.0 cm/sec LV V1 max P.6 mmHg LV V1 mean P.1 mmHg LV V1 mean: 94.8 cm/sec LV V1 VTI: 28.0 cm TR max elliot: 333.2 cm/sec TR max P.4 mmHg ECHO/Echo Complete W/ Contrast Interpretation Summary Normal LV size. Left ventricular systolic function is normal. The left ventricular ejection fraction is 70 %. Stage 2 diastolic dysfunction. Contrast injection was performed. The study was technically difficult. Ordering Physician: Hari Iniguez Referring Physician: Joshua Castañeda Performed By: [facility]
[2024-09-20 19:22] LABS: Reflex Lactate? Y
[2024-09-20 22:27] LABS: Pro- Brain NATRIURETIC PEPTIDE 568 pg/mL (<=1800)
--- OUTSIDE RECORDS SUMMARY | 2024-09-20 22:43 | XMS RPT_ITS | CCD ---
Author Organization [facility] Clini[facility] Care Team Providers Care Agile Coach Name Role Phone Rober Rubio MD [facility] Rm Lo MD Unavailable Rober Rubio MD Primary Care Provider Rm Lo MD Unavailable [phone] Deborah Barron Admitting Unavailable Meng Wells Consulting Unavailable Hari Iniguez Attending Unavailable Rober Rubio Primary Care Unavailable Maurizio Welsl Consulting Unavailable Meng Wells Consulting Unavailable Hari Iniguez Attending Unavailable Rober Rubio Primary Care Unavailable Deborah Barron Admitting Unavailable Maurizio Wells Consulting Unavailable Hari Iniguez Consulting Unavailable Siri, Salvador Referring Unavailable Harley Hornerril Attending Unavailable Rober Rubio Primary Care Unavailable Milagros Cochran Attending Unavailable Rober Rubio Primary Care Unavailable Deborah Barron Consulting Unavailable Maurizio Wells Attending Unavailable Karen Mendez Attending Unavailable Deborah Barron Attending Unavailable Deborah Barron Consulting Unavailable Deborah Barron Admitting Unavailable Rober Rubio Primary Care Unavailable Rober Rubio MD Primary Care Provider ROBER RUBIO Primary Care Unavailable PROVIDER, UNKNOWN Referring Unavailable Tavo SOIL SCIENTIST.Lorenza WALL Unavailable Lopez SOIL SCIENTIST.Shantell WALL A Unavailable [phone] Dr. Stevo Alcantara Emergency Provider Dr. Rober Rubio Primary Care Provider Dr. Deborah Barron Admit Provider Dr. Deborah Barron Other Provider Dr. Karen Mendez Attending Provider Dr. Maurizio Wells Attending Provider Dr. Maurizio Wells Other Provider Dr. Meng Wells Other Provider Dr. Hari Iniguez Attending Provider Dr. Hari Iniguez Other Provider Dr. Milagros Cochran Attending Provider Rm Lo MD Unavailable Suppan SOIL SCIENTIST.DRYING TUNNEL OPERATOR, Shantell A Unavailable Suppan SOIL SCIENTIST.DRYING TUNNEL OPERATOR, Shantell A Unavailable JOANNE, ROBER Primary Care Unavailable ADAMS, EMILY D Referring Unavailable ADAMS, EMILY D Attending Unavailable JOANNE, ROBER Primary Care Unavailable JOANNE, ROBER Referring Unavailable ADAMS, EMILY D Attending Unavailable JOANNE, ROBER Primary Care Unavailable BRITTON GANNON Attending Unavailab le JOANNE, ROBER Primary Care Unavailable HAAGEN, LORENZA Referring Unavailable JOANNE, ROBER Primary Care Unavailable HAAGEN, LORENZA Attending Unavailable JOANNE, ROBER Primary Care Unavailable ADAMS, EMILY D Referring Unavailable JOANNE, ROBER Primary Care Unavailable ADAMS, EMILY D Referring Unavailable JOANNE, ROBER Primary Care Unavailable HAAGEN, LORENZA Attending Unavailable JOANNE, ROBER Primary Care Unavailable HAAGEN, LORENZA Referring Unavailable JOANNE, ROBER Primary Care Unavailable HAAGEN, LORENZA Attending Unavailable JOANNE, ROBER Primary Care Unavailable ADAMS, EMILY D Referring Unavailable ADAMS, EMILY D Attending Unavailable JOANNE, ROBER Primary Care Unavailable HARPSTER, MARTIN Referring Unavailable JOANNE, ROBER Primary Care Unavailable HARPSTER, MARTIN Referring Unavailable HARPSTER, MARTIN Attending Unavailable JOANNE, ROBER Primary Care Unavailable HODA CYR Attending Unavailable JOANNE, ROBER Primary Care Unavailable HAAGEN, LORENZA Attending Unavailable JOANEN, ROBER Primary Care Unavailable JOANNE, ROBER Primary Care Unavailable HAAGEN, LORENZA Attending Unavailable JOANNE, ROBER Primary Care Unavailable ADAMS, EMILY D Referring Unavailable JOANNE, ROBER Primary Care Unavailable ADAMS, EMILY D Referring Unavailable Joanne MD, Dr. Rober Primary Care Provider Dr. Joshua Castañeda MD Referring Provider Dr. Joshua Castañeda MD Emergency Provider Dr. Hari Iniguez DO Admit Provider Dr. Hari Iniguez DO Attending Provider Allergies Allergy Classification Reported Allergen(s) Allergy Type Date of Onset Reaction(s) Facility Opioid Agonists (4 sources) Codeine Drug Allergy 3 Other: See Comments [facility] Penicillins (antibiotic) (4 sources) Penicillins Drug Allergy 2 [facility] Work Phone: Sulfonamides (antibiotic) (4 sources) Sulfonamides (Antibiotic) Drug Allergy 2 [facility] (20 sources) Codeine; 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: [CODEINE] Drug Allergy 3 Other: See Comments [facility] (11 sources) Penicillins; 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: [PENICILLINS] Drug Allergy 2 [facility] Work Phone: (20 sources) Seasonal allergy; 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: [SEASONAL ALLERGIES] Allergy to substance 2 Other: See Comments [facility] (20 sources) Sulfonamides (Antibiotic); 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: [SULFA (SULFONAMIDE ANTIBIOTICS)] Drug Allergy 2 [facility] Work Phone: (8 sources) Tetanus Vaccines And Toxoid; 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: [TETANUS VACCINES AND TOXOID] Drug Allergy 2 Anaphylaxis [facility] Work Phone: (20 sources) Penicillins Drug Allergy 2 Rash [facility] Work Phone: (20 sources) Tetanus Vaccines And Toxoid Drug Allergy 2 Anaphylaxis [facility] Work Phone: (1 source) Codeine Drug Allergy 1 [facility] (1 source) Penicillins Drug allergy (disorder) 1 [facility] (1 source) Sulfonamides (Antibiotic) Drug allergy (disorder) 1 [facility] (1 source) Tetanus Vaccines and Toxoid Drug allergy (disorder) 1 [facility] (1 source) venom-honey bee Drug allergy (disorder) 3 [facility] (3 sources) Penicillins Allergy to substance 1 Itching [facility] (3 sources) Sulfonamides (Antibiotic) Allergy to substance 1 Itching [facility] (3 sources) Tetanus Vaccines and Toxoid Allergy to substance 1 NEEDS FOLLOW-UP [facility] (2 sources) venom-honey bee Allergy to substance 3 Swelling [facility] (7 sources) Penicillins Drug Allergy 2 Rash [facility] Work Phone: Medications Current Medications Medication Drug Class(es) Dates Sig (Normalized) Sig (Original) [id number] 200 actuat albuterol 0.09 mg/actuat metered dose inhaler (20 sources) beta2-Adrenergic Agonist Start: 03-03-2024 take 2 puff(s) by mouth every four hours as needed albuterol HFA (PROVENTIL HFA, VENTOLIN HFA) 90 mcg/actuation inhaler Indications: Emphysema, unspecified (HCC) TAKE 2 PUFFS BY MOUTH EVERY 4 HOURS NEEDED 8.5 Each 3 03/03/2024 Active Start: 03-08-2020 Albuterol Sulf ate 8.5 GM HFA aerosol inhaler Active 2 NMA INHALATION EVERY 4 HOURS NEEDED as needed for Wheezing March 08, 2020 1:00am Start: 03-08-2020 take 1 puff(s) by in halation every four hours as needed Albuterol Sulfate Active 2 PUFF INHALATION EVERY 4 HOURS NEEDED March 08, 2020 12:00am Start: 01-20-2020 End: 03-03-2024 take 2 puff(s) by inhalation every four hours as needed albuterol HFA (PROAIR HFA) 90 mcg/actuation inhaler Inhale 2 Puffs as instructed every 4 hours as needed. 18 g 3 07/23/2023 03/03/2024 Discontinued Comment on above: Inhale 2 Puffs as in structed every 4 hours as needed. amLODIPine 10 mg oral tablet (20 sources) Dihydropyridine Calcium Channel Timoteo Start: 01-20-20 End: 12-23-19 take 1 tablet by mouth once daily Amlodipine 10 MG tablet Active 10 mg PO DAILY March 08, 2020 1:00am BP Comment on above: Take 1 tablet by saroj th once daily. apixaban 5 mg oral tablet (20 sources) Factor Xa Inhibitor Start: 02-06-20 End: 02-09-20 take 1 tablet by mouth twice daily apixaban (ELIQUIS) 5 mg tab(s) Indications: Atrial fibrillation with RVR (HCC) Take 1 tablet by mouth two times a day. 180 tablet 1 02/09/2024 Active End: 11-07-2023 apixaban (ELIQUIS ORAL) Take by mouth. 11/07/2023 Discontinued apixaban (ELIQUI S ORAL) Take by mouth. Active apixaban (ELIQUI S ORAL) Take by mouth. 0 Active Comment on above: Take 1 tablet by saroj th two times a day. ascorbic acid 113 mg / beta carotene 7160 mg / cuprous oxide 0.4 mg / dl-alpha tocopheryl acetate 100 unt / zinc oxide 17.4 mg oral tablet (20 sources) Vitamin C Start: 09-20-2024 Vitamins A,C,W-Kqhs-Dhigoe (Preservision Areds) 2,148 mcg-113 mg-45 mg-17.4mg tablet Active 1 {tbl} PO TWICE A DAY September 20, 2024 12:00am eyes administer with AM and PM meals Start: 03-08-2020 End: 09-20-2024 take 1 tablet by mouth once daily Vitamins A,C,R-Znsx-Yndeav 1 EACH tablet Discontinued 1 NMA PO DAILY March 08, 2020 1:00am September 20, 2024 5:18pm Start: 03-08-2020 Vitamins A,C,E -Zinc-Copper Active 1 EACH PO DAILY March 08, 2020 12:00am Start: 12-09-2013 vit A,C,E-Zinc -Copper (PRESERVISION AREDS) 7,160-113-100 uwsc-by-xjvd tab Take 2 tablets by mouth. 0 12/09/2013 Active Comment on above: Take by mouth. aspirin 81 mg delayed release oral tablet (20 sources) Platelet Aggregation Inhibitor, Nonsteroidal Anti-inflammatory Drug Start: 05-30-19 take 1 tablet by mouth once daily Aspirin 81 MG tablet Active 81 mg PO DAILY@0800 March 08, 2020 1:00am ordered Comment on above: Take 1 tablet by saroj once daily. atorvastatin 80 mg oral tablet (20 sources) HMG-CoA Reductase Inhibitor Start: 07-17-19 End: 09-02-19 take 1 tablet by mouth once daily atorvastatin (LIPITOR) 80 mg tablet Indications: Hyperlipidemia, unspecified hyperlipidemia type Take 1 tablet by mouth once daily. 90 tablet 3 09/01/2024 09/01/2025 Active Start: 03-08-2020 take 2 tablets by mo [facility] at bedtime Atorvastatin 40 MG tablet Active 80 mg PO AT BEDTIME March 08, 2020 1:00am cholestreol Start: 01-20-2020 End: 10-02-2023 take 40 mg by mouth at bedtime Atorvastatin Active 40 MG PO AT BEDTIME March 08, 2020 12:00am Comment on above: Take 1 tablet by saroj once daily. doxycycline hyclate 100 mg oral capsule (1 source) Tetracycline-class Drug Start: 06-02-19 End: 06-12-19 take 1 capsule by mouth twice daily doxycycline hyclate (VIBRAMYCIN) 100 mg capsule Take 1 capsule by mouth twice daily for 10 days. 20 capsule 0 06/01/2022 06/11/2022 Active Comment on above: Take 1 capsule by mo [facility] twice daily for 10 days. ergocalciferol 1.25 mg oral capsule (20 sources) Provitamin D2 Compound Start: 09-21-19 Ergocalciferol (Vitamin D2) 1,250 mcg (50,000 unit) capsule Active 1250 ug PO EVERY WEEK September 20, 2024 12:00am ordered Start: 08-09-2024 take 1 capsule by mo [facility] every week ergocalciferol 50,000 unit capsule (VITAMIN D2, DRISDOL) Indications: Vitamin D deficiency Take 1 capsule by mouth one time a week. 12 capsule 3 08/09/2024 Active Start: 02-24-2023 End: 08-08-2023 take 1 capsule by mouth every week ergocalciferol 50,000 unit capsule (VITAMIN D2, DRISDOL) Indications: Vitamin D deficiency Take 1 capsule by mouth one time a week. 12 capsule 3 08/08/2023 Active Start: 01-20-2020 End: 01-31-2023 Ergocalciferol (Vitamin D2) 50,000 UNIT capsule Discontinued 79719 U PO EVERY WEEK March 08, 2020 1:00am January 31, 2023 2:53pm Comment on above: Take 1 capsule by mo [facility] one time a week. Fluticasone-Umeclidin- Vilanter (20 sources) Anticholinergic, Corticosteroid, beta2-Adrenergic Agonist Start: 09-20-2024 Jzsljckbmhq-Rssrtsgkm-Jb lanter (Trelegy Ellipta) 100-62.5-25 mcg blister with device Active 1 NMA INHALATION DAILY September 20, 2024 12:00am breathing Start: 01-31-2023 End: 09-20-2024 Wrfivjckryu-Whrhffrvw-Ejfnwa er (Trelegy Ellipta) 100-62.5-25 mcg blister with device Discontinued 1 NMA INHALATION Q2H January 31, 2023 1:00am September 20, 2024 5:18pm Start: 01-31-2023 Fluticasone-Um eclidin-Vilanter (Trelegy Ellipta) 100-62.5-25 mcg blister with device Active 1 INH INHALATION Q2H January 31, 2023 12:00am Start: 01-31-2023 Fluticasone-Um eclidin-Vilanter [Fluticasone Fur. 100 Mcg-Umeclid 62.5 Mcg-Vilant 25 Mcg Inhalat.Powder] (Fluticasone Fur. 100 Mcg-Umeclid 62.5 Mcg-Vilant ) 100-62.5-25 mcg blister with device Active 1 INH INHALATION Q2H January 31, 2023 12:00am Start: 03-05-2021 End: 07-05-2024 take 1 puff(s) by inhalation once daily TRELEGY ELLIPTA 100-62.5-25 mcg inhalati on powder Indications: COPD with chronic bronchitis (HCC) INHALE 1 PUFF INSTRUCTED ONCE DAILY. 60 each 5 07/05/2024 Active Comment on above: Inhale 1 Puff as ins tructed once daily. lisinopril 20 mg oral tablet (20 sources) Angiotensin Converting Enzyme Inhibitor Start: 5 End: 5 take 1 tablet by mouth once daily lisinopril (ZESTRIL) 20 mg tablet Indications: Essential hypertension Take 1 tablet by mouth once daily. 90 tablet 1 09/01/2024 Active Start: 09-24-2023 End: 04-28-2024 take 1 tablet by mouth once daily lisinopril (ZESTRIL) 30 mg tablet Take 1 tablet by mouth once daily. 90 tablet 1 10/28/2023 04/28/2024 Discontinued Start: 03-08-2020 Lisinopril 40 MG tablet Active 20 mg PO DAILY March 08, 2020 1:00am BP Start: 01-20-2020 End: 10-07-2023 take 40 mg by mouth once daily Lisinopril Active 40 MG PO DAILY March 08, 2020 12:00am Comment on above: Take 1 tablet by saroj th once daily. metFORMIN hydrochloride 500 mg oral tablet (20 sources) Biguanide Start: 2 End: 6 take 1 tablet by mouth once daily Metformin 500 mg tablet Active 500 mg PO DAILY January 31, 2023 1:00am diabetes Comment on above: Take 1 tablet by saroj th daily with breakfast. 24 hr metoprolol succinate 25 mg extended release oral tablet (20 sources) beta-Adrenergic Timoteo Start: 4 End: 6 take 1 tablet by mouth once daily metoprolol succinate ER (TOPROL XL) 25 mg 24 hr tablet Indications: Atrial fibrillation with RVR (HCC) Take 1 tablet by mouth once daily. 30 tablet 11 09/01/2024 09/01/2025 Active Start: 04-14-2023 End: 07-16-2023 take 0.5 tablet by mouth twice daily metoprolol tartrate, short acting, (LOPRESSOR) 50 mg tablet Take 0.5 tablets by mouth two times a day. 180 tablet 1 04/14/2023 07/16/2023 Discontinued Start: 02-05-2023 End: 03-20-2023 take 1 tablet by mouth twice daily Metoprolol Tartrate 50 mg Tablet Active 50 mg PO TWICE A DAY 60 0 February 05, 2023 1:00am BP Comment on above: Take 0.5 tablets by mouth two times a day. tirzepatide (MOUNJARO) 2.5 mg/0.5 mL pen injector (11 sources) Start: 09-02-19 inject 2.5 mg by subcutaneous injection every week tirzepatide (MOUNJARO) 2.5 mg/0.5 mL pen injector Indications: Type 2 diabetes mellitus with hyperglycemia, without long-term current use of insulin (HCC) Inject 2.5 mg subcutaneously one time a week. 4 each 1 09/01/2024 Active Start: 04-28-2024 End: 09-01-2024 inject 2.5 mg by subcutaneous injection every week tirzepatide (MOUNJARO) 2.5 mg/0.5 mL pen injector Indications: Type 2 diabetes mellitus with hyperglycemia, without long-term current use of insulin (HCC) Inject 2.5 mg subcutaneously one time a week. 4 Each 1 04/28/2024 09/01/2024 Discontinued Start: 04-28-2024 inject 2.5 mg by sub cutaneous injection every week tirzepatide (MOUNJARO) 2.5 mg/0.5 mL pen injector Indications: Type 2 diabetes mellitus with hyperglycemia, without long-term current use of insulin (HCC) Inject 2.5 mg subcutaneously one time a week. 4 Each 1 04/28/2024 Active Tirzepatide (Mounjaro) 2.5 mg/0.5 mL pen injector (1 source) Start: 09-20-2024 Tirzepatide (M ounjaro) 2.5 mg/0.5 mL pen injector Active 2.5 mg SC EVERY WEEK September 20, 2024 12:00am weight Completed/Discontinued Medications Medication Drug Class(es) Dates Sig (Normalized) Sig (Original) azithromycin 250 mg oral tablet (9 sources) Macrolide Antimicrobial Start: 07-23-2023 End: 10-28-2023 azithromycin (ZITHROMAX) 250 mg tablet Take 2 tablets on Day 1, then 1 tablet daily x 4 days. 6 tablet 07/23/2023 10/28/2023 Discontinued clobetasol propionate 0.5 mg/ml topical cream (20 sources) Corticosteroid Start: 07-14-2018 End: 07-16-2023 clobetasol (TEMOVATE) 0.05 % cream Indications: Acute vaginitis Apply at sparingly to perineum up to twice daily for no more than 2 weeks as needed for irritation 30 g 07/14/2018 07/16/2023 Discontinued Comment on above: Apply at sparingly t o perineum up to twice daily for no more than 2 weeks as needed for irritation fluticasone (4 sources) Corticosteroid Start: 03-08-2020 End: 01-31-2023 Fluticasone Propionate 1 INHALER inhaler Discontinued 1 NMA INHALATION TWICE A DAY March 08, 2020 1:00am January 31, 2023 2:53pm Start: 03-08-2020 End: 01-31-2023 take 1 puff(s) by inhalation twice daily Fluticasone Propionate Discontinued 1 PUFF INHALATION TWICE A DAY March 08, 2020 12:00am January 31, 2023 1:53pm Start: 01-20-2020 End: 03-09-2020 take 1 puff(s) by inhalation twice daily fluticasone (FLOVENT HFA) 110 mcg/actuation inhaler Indications: Pulmonary emphysema, unspecified emphysema type (HCC) Inhale 1 Puff as instructed twice daily. 36 Inhaler 01/20/2020 03/09/2020 Discontinued oseltamivir 30 mg oral capsule (2 sources) Neuraminidase Inhibitor Start: 02-05-2023 End: 09-20-2024 take 1 capsule by mouth twice daily Oseltamivir 30 mg Capsule Discontinued 30 mg PO TWICE A DAY 1 February 05, 2023 1:00am September 20, 2024 5:18pm perflutren lipid microspheres 1.3 mL in NaCl (PF) 0.9% 10 mL injection (DEFINITY) (20 sources) Start: 04-10-2021 End: 07-11-2022 perflutren lipid microspheres 1.3 mL in NaCl (PF) 0.9% 10 mL injection (DEFINITY) regadenoson (LEXISCAN) 0.4 mg/5 mL syrg (1 source) Start: 01-20-2020 End: 01-20-2020 regadenoson (LEXISCAN) 0.4 mg/5 mL syrg Indications: Shortness of breath Inject 5 mL intravenously one time only for 1 dose. Give IV push over 10 seconds and follow with 5 ml of normal saline 5 mL 01/20/2020 01/20/2020 semaglutide 3 mg oral tablet (20 sources) Start: 08-08-2023 End: 04-28-2024 take 1 tablet by mouth once daily before breakfast, then take 4 tablets by mouth once semaglutide (RYBELSUS) 3 mg tablet Take 1 tablet by mouth daily before breakfast. Take 30 minutes before the first food, beverage, or other oral medications of the day with no more than 4 ounces of plain water 30 tablet 10/30/2023 04/28/2024 Discontinued 125 ml sodium chloride 9 mg/ml prefilled syringe (20 sources) Start: 04-10-2021 End: 07-11-2022 sodium chloride 0.9 % (flush) 10 mL (BD POSIFLUSH) tiotropium (3 sources) Anticholinergic Start: 03-08-2020 End: 01-31-2023 take 18 ug by inhalation once daily Tiotropium [place]ay Discontinued 18 MCG IH DAILY March 08, 2020 12:00am January 31, 2023 1:54pm Start: 01-20-2020 End: 04-06-2020 take 1 capsule by inhalation once daily tiotropium (SPIRIVA WITH HANDIHALER) 18 mcg inhalation capsule Indications: Pulmonary emphysema, unspecified emphysema type (HCC) Inhale 1 capsule as instructed once daily. Use with handihaler 30 capsule 5 01/20/2020 04/06/2020 Discontinued Tiotropium Alloway 18 MCG capsule, w/inhalation device (1 source) Start: 03-08-2020 End: 01-31-2023 take 1 capsule by inhalation once daily Tiotropium Alloway 18 MCG capsule, w/inhalation device Discontinued 18 ug IH DAILY March 08, 2020 1:00am January 31, 2023 2:54pm Problems Active Problems Problem Classification Problem Date Documented Da te Episodic/Chronic Acute bronchitis (7 sources) Acute bronchitis, unspecified; 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: [Acute bronchiolitis] Onset: 02-06-2023 07-23-2023 Episodic Aortic and peripheral arterial embolism or thrombosis (1 source) 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 Blindness and vision defects (1 source) Visual impairment; 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: [Unspecified visual loss] Chronic Cardiac dysrhythmias (20 sources) Atrial fibrillation with rapid ventricular response; 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: [Unspecified atrial fibrillation] Onset: 02-25-2023 02-25-2023 Chronic Chronic obstructive pulmonary disease and bronchiectasis (20 sources) Emphysematous bronchitis; 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: [Chronic obstructive pulmonary disease, unspecified] Onset: 12-09-2014 Resolved: 07-20-2020 07-20-2020 Chronic Chronic obstructive pulmonary disease and bronchiectasis (1 source) Chronic obstructive pulmonary disease and bronchiectasis; 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: [COPD with chronic bronchitis (HCC)] Onset: 07-20-2020 Congestive heart failure; nonhypertensive (1 source) Congestive heart failure; 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: [Heart failure, unspecified] 02-24-2023 Chronic Coronary atherosclerosis and other heart disease (20 sources) Calcification of coronary artery; 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: [Atherosclerotic heart disease of [place] coronary artery without angina pectoris] Onset: 06-25-2021 Chronic Deficiency and other anemia (4 sources) Anemia; 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: [Anemia, unspecified] 09-20-2024 Episodic Diabetes mellitus with complications (6 sources) Type 2 diabetes mellitus; 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: [Type 2 diabetes mellitus with hyperglycemia] Onset: 09-17-2023 08-08-2023 Chronic Diabetes mellitus without complication (20 sources) Type 2 diabetes mellitus without complication; 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: [Type 2 diabetes mellitus without complications] Onset: 01-16-2021 01-16-2021 Chronic Disorders of lipid metabolism (20 sources) Hyperlipidemia; 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: [Hyperlipidemia, unspecified] Onset: 01-15-2012 01-15-2012 Chronic Essential hypertension (20 sources) Hypertensive disorder; 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: [Essential (primary) hypertension] Onset: 01-15-2012 01-15-2012 Chronic Fluid and electrolyte disorders (2 sources) Lactic acidosis; 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: [Lactic acidosis] 09-20-2024 Episodic Heart valve disorders (2 sources) Aortic valve calcification; 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: [Nonrheumatic aortic valve disorder, unspecified] Chronic Influenza (4 sources) Influenza due to other identified influenza virus with other respiratory manifestations; 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: [Influenza due to Influenza A virus] Onset: 02-06-2023 02-01-2023 Episodic Nutritional deficiencies (3 sources) Vitamin D deficiency; 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: [Vitamin D deficiency, unspecified] Chronic Occlusion or stenosis of precerebral arteries (5 sources) Bilateral stenosis of carotid arteries; 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: [Occlusion and stenosis of bilateral carotid arteries] Onset: 08-03-2024 09-29-2023 Chronic Other aftercare (1 source) Long-term current use of anticoagulant; 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] 04-28-2024 Episodic Other aftercare (1 source) skilled nursing (current) use of insulin; 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: [Type 2 diabetes mellitus without complication, with long-term current use of insulin (HCC)] Onset: 09-01-2024 Episodic Other liver diseases (20 sources) Steatosis of liver; 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: [Fatty (change of) liver, not elsewhere classified] Onset: 02-25-2023 02-25-2023 Chronic Other liver diseases (1 source) Elevated liver enzymes level; 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: [Abnormal levels of other serum enzymes] Episodic Other lower respiratory disease (4 sources) Dyspnea; 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: [Shortness of breath] Episodic Other lower respiratory disease (4 sources) Hypoxia; 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: [Hypoxemia] Episodic Other lower respiratory disease (7 sources) Multiple nodules of lung; 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: [Other nonspecific abnormal finding of lung field] Episodic Other lower respiratory disease (3 sources) Hypoxemia; 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: [Hypoxemia] Onset: 02-12-2023 01-31-2023 Episodic Other nutritional; endocrine; and metabolic disorders (20 sources) Obese class I; 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: [Obesity, unspecified] Onset: 11-29-2021 Chronic Other nutritional; endocrine; and metabolic disorders (20 sources) Obese class II; 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: [Obesity, unspecified] Onset: 10-03-2023 10-03-2023 Chronic Other screening for suspected conditions (not mental disorders or infectious disease) (10 sources) Patient encounter status; 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: [Encounter for screening for malignant neoplasm of colon] Episodic Other upper respiratory disease (2 sources) Acute bronchospasm; 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: [Acute bronchospasm] 09-20-2024 Episodic Peripheral and visceral atherosclerosis (9 sources) Peripheral vascular disease; 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: [Peripheral vascular disease, unspecified] Onset: 09-29-2023 09-18-2023 Chronic Pneumonia (except that caused by tuberculosis or sexually transmitted disease) (4 sources) Community acquired pneumonia; 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: [Pneumonia, unspecified organism] 09-20-2024 Episodic Residual codes; unclassified (1 source) Did not attend; 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: [Procedure and treatment not carried out because of patient's decision for other reasons] Episodic Residual codes; unclassified (2 sources) Postmenopausal state; 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: [Asymptomatic menopausal state] Episodic Residual codes; unclassified (2 sources) Blood pressure alteration; 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: [Other general symptoms and signs] 08-08-2023 Episodic Residual codes; unclassified (2 sources) Sign; 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: [Other general symptoms and signs] 09-20-2024 Episodic Respiratory failure; insufficiency; arrest (adult) (2 sources) Acute hypoxemic respiratory failure; 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: [Acute respiratory failure with hypoxia] 09-20-2024 Episodic Unclassified (1 source) Chronic atrial fibrillation, unspecified; 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: [Chronic atrial fibrillation (HCC)] Onset: 09-01-2024 Unclassified (1 source) Class 2 obesity; 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: [Class 2 obesity] Onset: 02-12-2024 Past or Other Problems Problem Classification Problem Date Documented Da te Episodic/Chronic Conditions associated with dizziness or vertigo (3 sources) Postural dizziness; 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: [Dizziness and giddiness] Onset: 09-24-2023 08-08-2023 Episodic Fracture of upper limb (20 sources) Fracture of upper end of humerus; 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: [Unspecified fracture of upper end of unspecified humerus, initial encounter for closed fracture] Onset: 03-24-2014 Resolved: 02-19-2018 02-19-2018 Episodic Other aftercare (20 sources) 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; 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] Onset: 10-03-2023 10-03-2023 Episodic Other aftercare (1 source) skilled nursing (current) use of anticoagulants; 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: [Chronic anticoagulation] Onset: 05-26-2024 Episodic Other and unspecified benign neoplasm (20 sources) History of polyp of colon; 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: [Personal history of colonic polyps] Onset: 11-07-2016 11-07-2016 Episodic Other bone disease and musculoskeletal deformities (20 sources) Osteopenia; 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: [Other specified disorders of bone density and structure, unspecified site] Onset: 09-21-2015 09-21-2015 Episodic Other lower respiratory disease (20 sources) Nodule of lung; 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: [Solitary pulmonary nodule] Onset: 03-09-2020 03-09-2020 Episodic Other lower respiratory disease (1 source) Solitary pulmonary nodule; 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: [Lung nodule] Onset: 03-09-2020 Episodic Other lower respiratory disease (1 source) Other nonspecific abnormal finding of lung field; 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: [Lung nodules] Onset: 02-02-2024 Episodic Pleurisy; pneumothorax; pulmonary collapse (2 sources) Atelectasis; 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: [Atelectasis] Onset: 02-12-2024 02-12-2024 Episodic Residual codes; unclassified (1 source) Other general symptoms and signs; 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: [Blood pressure alteration] Onset: 09-17-2023 Episodic Screening and history of mental health and substance abuse codes (7 sources) Ex-tobacco user; 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: [Personal history of nicotine dependence] Onset: 07-23-2023 Episodic Results Test Name Value Interpretation Reference Range Facility Absolute lymphocyte countOrd ered By: Joshua Castañeda on 09-20-2024 Lymphocytes Auto (Unsp spec) [#/Vol] 0.57 10*3/uL Low 0.83-4.51 [facility] Absolute neutrophil countOrd ered By: Joshuarubin Castañeda on 09-20-2024 Neutrophils (Bld) [#/Vol] 14.3 10*3/uL High 2.0-7.7 [facility] Anion gap in Serum or Plasma Ordered By: Joshua Castañeda on 09-20-2024 Anion gap [Moles/Vol] 16 mmol/L High 5-15 [facility] Automated lymphocyte count a s percentage of total leukocytesOrdered By: Joshuarubin Castañeda on 09-20-2024 Lymphocytes/100 WBC Auto (Unsp spec) 3.5 % Low 19-41 [facility] BUN/creatinine ratioOrdered By: Joshuarubin Castañeda on 09-20-2024 Urea nitrogen/Creatinine [Mass ratio] 21.4 mg/mg High 10-20 [facility] Basophil percentageOrdered B y: Joshua Castañeda on 09-20-2024 Basophils/100 WBC (Bld) 0.2 % 0-1 [facility] Blood base excess determinat ionOrdered By: Joshua Castañeda on 09-20-2024 Base excess Calc (BldV) [Moles/Vol] 3 mmol/L High -2-2 [facility] Blood bicarbonate measuremen tOrdered By: Joshua Castañeda on 09-20-2024 HCO3 (Bld) [Moles/Vol] 26.5 mmol/L High 22-26 [facility] Carbon dioxide, total [Moles /volume] in Central venous bloodOrdered By: Joshua Castañeda on 09-20-2024 CO2 [Moles/Vol] 21.6 mmol/L 21.0-32.0 [facility] Chloride assayOrdered By: Aurora Castañeda on 09-20-2024 Chloride [Moles/Vol] 98 mmol/L 98-108 [facility] Eosinophil percentageOrdered By: Joshua Castañeda on 09-20-2024 Eosinophils/100 WBC (Bld) 0.2 % 0-5 [facility] Erythrocyte distribution wid th ratioOrdered By: Joshua Castañeda on 09-20-2024 Erythrocyte distribution width (RBC) [Ratio] 19.5 % High 11.6-14.6 [facility] Erythrocyte distribution wid th standard deviationOrdered By: Joshua Castañeda on 09-20-2024 Erythrocyte distribution width (RBC) [Ratio] 61.2 fl High 35.1-43.9 [facility] Glomerular filtration rate ( GFR) estimation/1.73 sq m using serum, plasma, or whole bOrdered By: Joshua Castañeda on 09-20-2024 GFR/1.73 sq M.predicted among non-blacks MDRD (S/P/Bld) [Vol rate/Area] 88 mL/min/{1.73_m2} >60 [facility] Comment on above: mL/min/1.73m2 CKD-EP I Creatinine Equation (2020) Hematocrit Auto (Bld) [Volum e fraction]Ordered By: Joshua Castañeda on 09-20-2024 Hematocrit (Bld) [Volume fraction] 23.9 % Low 37-47 [facility] Hemoglobin measurementOrdere d By: Joshua Casatñeda on 09-20-2024 Hemoglobin (Bld) [Mass/Vol] 6.9 g/dL Low 12.0-15.0 [facility] Immature granulocytes/100 WB C Auto (Bld)Ordered By: Joshua Castañeda on 09-20-2024 Immature granulocytes/100 WBC (Bld) 0.800 % 0.0-0.9 [facility] Comment on above: IG% - Immature Granu locytes (promyelocytes, myelocytes and metamyelocytes) > 1% indicates that a LEFT SHIFT is Present. Lactic acid measurementOrder ed By: Joshua Castañeda on 09-20-2024 Lactate [Moles/Vol] 3.0 mmol/L High 0.0-2.0 [facility] Comment on above: Critical Result(s) C samuelroxana ACOLE at: 1613 by: ELEANOR Results read back by same. MCV (mean corpuscular volume ) determinationOrdered By: Joshua Castañeda on 09-20-2024 MCV (RBC) [Entitic vol] 87.5 fL 81-99 [facility] Mean corpuscular hemoglobin (MCH) determinationOrdered By: Joshua Castañeda on 09-20-2024 MCH (RBC) [Entitic mass] 25.3 pg Low 27.0-32.0 [facility] Mean corpuscular hemoglobin concentration (MCHC) determinationOrdered By: Joshua Castañeda on 09-20-2024 MCHC (RBC) [Mass/Vol] 28.9 g/dL Low 32-36 [facility] Mean platelet volume determi nationOrdered By: Joshua Castañeda on 09-20-2024 Platelet mean volume (Bld) [Entitic vol] 9.4 fL 6.2-12.0 [facility] Measurement, pHOrdered By: Wyatt Castañeda on 09-20-2024 pH (Unsp spec) 7.48 [pH] High 7.35-7.45 [facility] Monocyte percentageOrdered B y: Joshua Castañeda on 09-20-2024 Monocytes/100 WBC (Bld) 8.2 % 0-10 [facility] Neutrophil percentageOrdered By: Joshua Castañeda on 09-20-2024 Neutrophils/100 WBC (Bld) 87.1 % High 47-70 [facility] No Panel InformationOrdered By: Joshua Castañeda on 09-20-2024 Blood Gas Sample Site R Brach [facility] Blood Gas Specimen Type ART [facility] Blood Gas Vent Mode Not entered [facility] Oxygen Delivery Device Cannula [facility] Nucleated red blood cell per centageOrdered By: Joshua Castañeda on 09-20-2024 Nucleated RBC/100 WBC (Bld) [Ratio] 0.2 % 0-5 [facility] Platelet countOrdered By: Aurora Castañeda on 09-20-2024 Platelets (Bld) [#/Vol] 309 10*3/uL 150-450 [facility] Potassium measurement (mass/ volume)Ordered By: Joshua Castañeda on 09-20-2024 Potassium (Unsp spec) [Mass/Vol] 4.3 mmol/L 3.3-5.1 [facility] RBC Auto (Bld) [#/Vol]Ordere d By: Joshua Castañeda on 09-20-2024 RBC (Bld) [#/Vol] 2.73 10*6/uL Low 4.2-5.4 [facility] Serum creatinine measurement (mass/volume)Ordered By: Joshua Castañeda on 09-20-2024 Creatinine [Mass/Vol] 0.71 mg/dL 0.70-1.20 [facility] Serum glucose measurement (m ass/volume)Ordered By: Joshua Castañeda on 09-20-2024 Glucose [Mass/Vol] 210 mg/dL High 70-99 [facility] Serum or plasma calcium maddi urement (mass/volume)Ordered By: Joshua Castañeda on 09-20-2024 Calcium [Mass/Vol] 8.2 mg/dL 7.6-11.0 [facility] Serum or plasma urea nitroge n measurement (mass/volume)Ordered By: Joshua Castañeda on 09-20-2024 Urea nitrogen [Mass/Vol] 15 mg/dL 4-19 [facility] Sodium levelOrdered By: Joshua Castañeda on 09-20-2024 Sodium [Moles/Vol] 135 mmol/L 133-145 [facility] Total carbon dioxide measure mentOrdered By: Joshua Castañeda on 09-20-2024 CO2 [Moles/Vol] 28 mmol/L [facility] Troponin T.cardiac [Mass/vol ume] in Serum or Plasma by High sensitivity methodOrdered By: Joshua Castañeda on 09-20-2024 Troponin T.cardiac High sensitivity method [Mass/Vol] 25 ng/L High <14 [facility] Troponin T.cardiac High sensitivity method [Mass/Vol] 29 ng/L High <14 [facility] White blood cell (WBC) count Ordered By: Joshua Castañeda on 09-20-2024 WBC (Bld) [#/Vol] 16.4 10*3/uL High 4.4-11.0 [facility] 09-01-2024 CN Office Visit (FAMPWS ) EMILY LOPEZ ([id number]) 1950 F Date Time Provider Department 09/01/24 1:00 PM [facility] During your visit today, we recorded the following information about you: Pulse Respiration Blood pressure Weight 104/minute 16/minute 149/69 88.5 kg Lorenza Vo APRN.CNP 09/01/2024 5:43 PM Signed This is a 74 year old female who presents today with: Patient presents with: Recheck: 1 month follow up HISTORY OF PRESENT ILLNESS: Emily Lopez is a 74 year old female with the past medical history of HTN, COPD, HLD, meniere's disease, and macular degeneration presents today for a Recheck: 1 month follow up on prescription. Pt states she gets winded when she is walking around, and gets dizzy- lightheadedness , feels heart flutter, and Shortness of Breath-walking causes sob to the patient. Going from cough to the bathroom gets winded. Patient states that it could be caused due to not taking Lipitor.Patient states this is more consistent, before it was on and off but now its pretty constant. Denies chest pain, fever, chills, double vision. HTN -Takes bp medication on time as prescribed -Denies chest pain -Pt states her right arm BP is higher than the left -Pt does not check BP at home, unable to read the result - Haven't been taking metoprolol the past 2 months, did not refill prescription COPD -Frequently feeling sob recently - Walking make sob worse Using albuterol bout 4 times daily. - Follows pulmonary HLD -Taking medications as prescribed Meniere's Disease - Pt states she is feeling lightheaded, room not spinning Chronic in nature. DM -Pt is on medications -Doesn't check blood glucose at home , unable to see the result Reports that she hasn't taken mounjaro in 2 months, as was out of medication and couldn't get refilled. Atrial fibrillation - Patient state she feels heart flutter (not new) - Follows cardiology PAST MEDICAL HISTORY: PAST MEDICAL HISTORY Diagnosis Date COPD (chronic obstructive pulmonary disease) (HCC) HTN (hypertension) 01/15/2012 Hyperlipidemia Macular degeneration Meniere's disease PAST SURGICAL HISTORY Procedure Laterality Date APPENDECTOMY CHOLECYSTECTOMY COLONOSCOPY 08/27/2021 repeat in 5 years COLONOSCOPY FLX DX W/COLLJ SPEC WHEN PFRMD 12/04/2016 Colonoscopy - regular villous adenoma recommended 3 year follow-up PAST SURGICAL HISTORY OF exploratory lap for endometriosis SURGERY (GENERAL SURGERY) CONSULT 1997 LEFT ARM SURGERY TONSILLECTOMY HX TOTAL ABDOM HYSTERECTOMY age 42 ALLERGIES Tetanus Vaccines And Toxoid, Codeine, Penicillins, Seasonal Allergies, and Sulfa (Sulfonamide Antibiotics) MEDICATIONS Current Outpatient Medications Medication Sig metFORMIN (GLUCOPHAGE) 500 mg tablet Take 1 tablet by mouth daily with breakfast. lisinopril (ZESTRIL) 20 mg tablet Take 1 tablet by mouth once daily. atorvastatin (LIPITOR) 80 mg tablet Take 1 tablet by mouth once daily. metoprolol succinate ER (TOPROL XL) 25 mg 24 hr tablet Take 1 tablet by mouth once daily. tirzepatide (MOUNJARO) 2.5 mg/0.5 mL pen injector Inject 2.5 mg subcutaneously one time a week. ergocalciferol 50,000 unit capsule (VITAMIN D2, DRISDOL) Take 1 capsule by mouth one time a week. TRELEGY ELLIPTA 100-62.5-25 mcg inhalation powder INHALE 1 PUFF INSTRUCTED ONCE DAILY. albuterol HFA (PROVENTIL HFA, VENTOLIN HFA) 90 mcg/actuation inhaler TAKE 2 PUFFS BY MOUTH EVERY 4 HOURS NEEDED apixaban (ELIQUIS) 5 mg tab(s) Take 1 tablet by mouth two times a day. amLODIPine (NORVASC) 10 mg tablet Take 1 tablet by mouth once daily. Lancets lancets Test blood sugar(s) 1 times daily. Dx: Type 2 DM - Controlled E11.9 Insulin: No (Patient not taking: Reported on 10/03/2023) blood sugar diagnostic (BLOOD GLUCOSE TEST) test strip Test blood sugar(s) 1 times daily. Dx: Type 2 DM - Controlled E11.9 Insulin: Yes (Patient not taking: Reported on 10/03/2023) vit A,C,V-Hyom-Nwkzaj (PRESERVISION AREDS) 7,160-113-100 iwsn-ea-hvan tab Take 2 tablets by mouth. aspirin, enteric coated (ASPIRIN LOW DOSE) 81 mg EC tablet Take 1 tablet by mouth once daily. No current facility-administered medications for this visit. FAMILY HISTORY Problem Relation Age of Onset Diabetes Mother Thyroid Mother Diabetes Father COPD Father smoker Diabetes Sister Bipolar disorder Sister Bipolar disorder Daughter other (10 grandchildren) Grandchild Cancer No Family History Social History Tobacco Use Smoking status: Former Current packs/day: 0.00 Average packs/day: 0.8 packs/day for 40.8 years (30.6 ttl pk-yrs) Types: Cigarettes Start date: 02/17/1970 Quit date: 11/26/2010 Years since quittin.7 Smokeless tobacco: Never Vaping Use Vaping status: Never Used Substance Use Topics Alcohol use: Yes Comment: 2 galsses of wine 1 (more content not included)... Normal [facility] CNOVon 08-03-2024 CNOV Office Visit (VASSWS ) EMILY LOPEZ ([id number]) 1950 F Date Time Provider Department 08/03/24 9:30 AM EMILY ADAMS VASSWS During your visit today, we recorded the following information about you: Pulse Blood pressure 86/minute 142/74 Emily Adams, DO 08/03/2024 10:28 AM Signed [facility] [place] [facility]PARTMENT OF VASCULAR SURGERY OUTPATIENT VISIT DATE August 03, 2024 OUTPATIENT VISIT TYPE ESTABLISHED SERVICE DATE: 08/03/2024 SERVICE TIME: 9:51 AM PRIMARY CARE PHYSICIAN: Rober Rubio MD HISTORY OF PRESENT ILLNESS: Ms. Lopez is a 73 year old female who presents today for a vascular surgery follow-up visit from PVRs and carotid duplex. She was started on new medication in the hospital in December and has been having dizziness. 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 She states it has been progressing since Covid. She has noticed that her dizziness improves with eating and is unsure if it due to her diabetic medications. She does notice that her dog and cat seem to know when she is dizzy and unsteady and urge her to sit. PAST MEDICAL HISTORY Diagnosis Date COPD (chronic obstructive pulmonary disease) (HCC) HTN (hypertension) 01/15/2012 Hyperlipidemia Macular degeneration Meniere's disease PAST SURGICAL HISTORY Procedure Laterality Date APPENDECTOMY CHOLECYSTECTOMY COLONOSCOPY 08/27/2021 repeat in 5 years COLONOSCOPY FLX DX W/COLLJ SPEC WHEN PFRMD 12/04/2016 Colonoscopy - regular villous adenoma recommended 3 year follow-up PAST SURGICAL HISTORY OF exploratory lap for endometriosis SURGERY (GENERAL SURGERY) CONSULT 1997 LEFT ARM SURGERY TONSILLECTOMY HX TOTAL ABDOM HYSTERECTOMY age 42 SOCIAL HISTORY Social History Tobacco Use Smoking status: Former Current packs/day: 0.00 Average packs/day: 0.8 packs/day for 40.8 years (30.6 ttl pk-yrs) Types: Cigarettes Start date: 02/17/1970 Quit date: 11/26/2010 Years since quittin.6 Smokeless tobacco: Never Vaping Use Vaping status: Never Used Substance Use Topics Alcohol use: Yes Comment: 2 galsses of wine 1-2 times per week Drug use: No MEDICATIONS: TRELEGY ELLIPTA 100-62.5-25 mcg inhalation powder INHALE 1 PUFF INSTRUCTED ONCE DAILY. lisinopril (ZESTRIL) 20 mg tablet Take 1 tablet by mouth once daily. albuterol HFA (PROVENTIL HFA, VENTOLIN HFA) 90 mcg/actuation inhaler TAKE 2 PUFFS BY MOUTH EVERY 4 HOURS NEEDED apixaban (ELIQUIS) 5 mg tab(s) Take 1 tablet by mouth two times a day. amLODIPine (NORVASC) 10 mg tablet Take 1 tablet by mouth once daily. metFORMIN (GLUCOPHAGE) 500 mg tablet Take 1 tablet by mouth daily with breakfast. ergocalciferol 50,000 unit capsule (VITAMIN D2, DRISDOL) Take 1 capsule by mouth one time a week. atorvastatin (LIPITOR) 80 mg tablet Take 1 tablet by mouth once daily. metoprolol succinate ER (TOPROL XL) 25 mg 24 hr tablet Take 1 tablet by mouth once daily. vit A,C,S-Zndw-Rqysch (PRESERVISION AREDS) 7,160-113-100 rwff-wc-dayt tab Take 2 tablets by mouth. aspirin, enteric coated (ASPIRIN LOW DOSE) 81 mg EC tablet Take 1 tablet by mouth once daily. tirzepatide (MOUNJARO) 2.5 mg/0.5 mL pen injector Inject 2.5 mg subcutaneously one time a week. Lancets lancets Test blood sugar(s) 1 times daily. Dx: Type 2 DM - Controlled E11.9 Insulin: No (Patient not taking: Reported on 10/03/2023) blood sugar diagnostic (BLOOD GLUCOSE TEST) test strip Test blood sugar(s) 1 times daily. Dx: Type 2 DM - Controlled E11.9 Insulin: Yes (Patient not taking: Reported on 10/03/2023) ALLERGIES: ALLERGIES Allergen Reactions Tetanus Vaccines An* Anaphylaxis Codeine Other: See Comments Patient states it feels like bugs are crawling on her Penicillins Rash Seasonal Allergies Other: See Comments Sulfa (Sulfonamide * Rash PHYSICAL EXAM: BP 142/74 (BP Site: Right Arm, BP Position: Sitting, BP Cuff Size: Regular Adult) Pulse 86 SpO2 96% General: Alert and oriented Integumentary: Normal color, no rash, no lesions. Neurological: Normal cognition and motor skills. Vascular: Radial Pulse Right: Normal - Left: Weak Diagnostic tests reviewed for today's visit: Most recent labs Most recent imaging Carotid Duplex When compared with the prior study, of 10/30/2023 no significant change is noted on the right side and no significant change is noted on the left side. RIGHT SIDE Common carotid artery: Plaque visualized without evidence of hemodynamically significant stenosis. Internal carotid artery: <50% stenosis consistent with mild carotid artery disease. Findings may be underestimated due to calcified shadowing plaque at origin . Calcified shadowing at origin : 1.3cm. Tortuous vessel from mid to distal . External carotid artery: Plaque without stenosis. Vertebral artery: Patent and antegrade fl (more content not included)... Normal [facility] PVR ANK PRESS [facility] 07-15-2024 PVR ANK PRESS [facility] Non-Invasive Vascular Laboratory [facility] Lower Extremity Arterial Physiology Study Bilateral/Complete Date of service/time: 07/15/2024 9:56:50 AM Name: MRS. EMILY LOPEZ Date of : 1950 Age: 73 years Gender: F Clinical Indication Peripheral arterial disease. TECHNIQUE -------- An arterial physiological examination was performed, including measurement of blood pressures using continuous wave Doppler and recording of plethysmographic with or without Doppler waveforms at the below-mentioned limb segments. FINDINGS -------- RIGHT SIDE AT REST Right Doppler Waveforms Dorsalis pedis: Monophasic. Post tibial: Monophasic. Right Pressures Brachial: 134 mmHg Ankle dorsalis pedis: 66 mmHg BUCK: 0.49 Ankle posterior tibial: 73 mmHg BUCK: 0.54 Right PVR Waveforms Ankle: Moderately dampened. Digit: Severely dampened. LEFT SIDE AT REST Left Doppler Waveforms Dorsalis pedis: Monophasic. Post tibial: Monophasic. Left Pressures Brachial: 88 mmHg Ankle dorsalis pedis: 53 mmHg BUCK: 0.40 Ankle posterior tibial: 69 mmHg BUCK: 0.51 Left PVR Waveforms Ankle: Moderately dampened. Digit: Severely dampened. IMPRESSION Compared to prior study of 10/30/2023, right ankle brachial index decreased from 0.61 and left ankle brachial index increased from 0.46. RIGHT SIDE Resting right ankle brachial index: 0.54 Abnormal ankle brachial index at rest diagnostic of peripheral artery disease. Right ankle: Moderate disease at rest. LEFT SIDE Resting left ankle brachial index: 0.51 Abnormal ankle brachial index at rest diagnostic of peripheral artery disease. Left ankle: Moderate disease at rest. Technologist: Brooklynn Inman RVT Ordering physician: EMILY ADAMS Interpreting physician: Conor Grijalva MD, LATRICE Final CC [employer] [facility] Image : [id number] amicsSISUID See Link below for Image Normal [facility] US CAROTID ARTERIES [facility] 07-15-2024 US CAROTID ARTERIES [facility] Non-Invasive [facility] Carotid Duplex Bilateral/Complete Date of service/time: 07/15/2024 9:53:44 AM Name: MRS. EMILY LOPEZ Date of : 1950 Age: 73 years Gender: F Clinical Indication Follow-up study on a patient with known carotid disease and known subclavian steal. TECHNIQUE -------- A carotid duplex ultrasound examination was performed, including grayscale imaging and color Doppler and spectral Doppler examination of the below mentioned arteries. FINDINGS -------- RIGHT SIDE Common carotid artery: Proximal: PSV: 116 cm/s. EDV: 17 cm/s. Mid: PSV: 96 cm/s. EDV: 16 cm/s. Distal: PSV: 97 cm/s. EDV: 13 cm/s. Moderate calcified and shadowing plaque at distal. Internal carotid artery: Origin: PSV: 120 cm/s. EDV: 21 cm/s. Proximal: PSV: 97 cm/s. EDV: 23 cm/s. Mid: PSV: 89 cm/s. EDV: 24 cm/s. Distal: PSV: 71 cm/s. EDV: 20 cm/s. Moderate calcified and shadowing plaque from origin to proximal. ICA/CCA Ratio: 1.2 External carotid artery: Proximal: PSV: 150 cm/s. EDV: 13 cm/s. Moderate calcified and shadowing plaque at origin. Subclavian artery: Proximal: PSV: 198 cm/s. EDV: 0 cm/s. Mild heterogeneous plaque at proximal. Vertebral artery: PSV: 75 cm/s. EDV: 16 cm/s. LEFT SIDE Common carotid artery: Proximal: PSV: 104 cm/s. EDV: 12 cm/s. Mid: PSV: 91 cm/s. EDV: 17 cm/s. Distal: PSV: 81 cm/s. EDV: 17 cm/s. Mild calcified plaque from mid to distal. Internal carotid artery: Origin: PSV: 195 cm/s. EDV: 42 cm/s. Proximal: PSV: 193 cm/s. EDV: 31 cm/s. Mid: PSV: 134 cm/s. EDV: 18 cm/s. Distal: PSV: 115 cm/s. EDV: 26 cm/s. Moderate calcified and shadowing plaque from origin to proximal. ICA/CCA Ratio: 2.4 External carotid artery: Proximal: PSV: 263 cm/s. EDV: 27 cm/s. Moderate calcified and shadowing plaque at origin. Subclavian artery: Proximal: PSV: 81 cm/s. EDV: 0 cm/s. Vertebral artery: PSV: 74 cm/s. EDV: 0 cm/s. IMPRESSION Please note: the new carotid interpretation criteria are used as recommended by [employer]. Technically difficult exam due to patient positioning. When compared with the prior study, of 10/30/2023 no significant change is noted on the right side and no significant change is noted on the left side. RIGHT SIDE Common carotid artery: Plaque visualized without evidence of hemodynamically significant stenosis. Internal carotid artery: <50% stenosis consistent with mild carotid artery disease. Findings may be underestimated due to calcified shadowing plaque at origin . Calcified shadowing at origin : 1.3cm. Tortuous vessel from mid to distal . External carotid artery: Plaque without stenosis. Vertebral artery: Patent and antegrade flow noted. Innominate artery: Not visualized. Subclavian artery: Turbulent flow noted, cannot rule out more proximal stenosis. May wish other means of evaluation. LEFT SIDE Common carotid artery: Plaque visualized without evidence of hemodynamically significant stenosis. Internal carotid artery: 50-69% stenosis consistent with moderate carotid artery disease. Findings may be underestimated due to calcified shadowing plaque at origin . Calcified shadowing at origin : 1.0cm. External carotid artery: Elevated velocities and plaque noted. Vertebral artery: Retrograde flow is evidence of subclavian steal. Subclavian artery: Turbulent flow noted, cannot rule out more proximal subclavian artery stenosis. May wish other means of evaluation. Technologist: Brooklynn Inman T Ordering physician: EMILY ADAMS Interpreting physician: Conor Grijalva MD, RPVI Final CC [employer] [facility] Image : [id number] amicsSISUID See Link below for Image Normal [facility] CNPNon 05-28-2024 CNPN Telephone (FAMWS) EMILY LOPEZ ([id number]) 1950 F Date Time Provider Department 05/28/24 ROBER RUBIO [facility] During your visit today, we recorded the following information about you: Rober Rubio MD 05/28/2024 2:23 PM Signed Labs are stable. Liver is mildly up still. Has known fatty liver. Recheck liver us and labs in one month Ana Rosa Saenz MA 05/28/2024 2:49 PM Signed Message left for return call. YOSSI Brown Krystle, MELINDA 05/28/2024 4:26 PM Signed Patient calls and notified of results and providers instructions. Patient verbalizes understanding. Patient to have son call back to schedule when he is able to transport. Rod Reich, MELINDA Allergies As of Date: 05/28/2024 Noted Allergy Reaction TETANUS VACCINES AND TOXOID 12/26/2011 10 - Anaphylaxis CODEINE 07/03/2012 14 - Other: See Comments Comments: Patient states it feels like bugs are crawling on her PENICILLINS 12/26/2011 2 - Rash SEASONAL ALLERGIES 12/27/2011 14 - Other: See Comments SULFA (SULFONAMIDE ANTIBIOTICS) 12/26/2011 2 - Rash Date Reviewed: 04/28/2024 Reviewed by: Gil Garnica LPN - Fully Assessed Reason for Visit: Results [95] Primary Visit Diagnosis:Fatty liver [K76.0] Order(s):HEPATIC FUNCTION PNL [SQHFP] Order #: [id number] FUTURE US ABD RIGHT UPPER QUADRANT [[id number]] Order #: [id number] FUTURE Prescriptions as of 05/28/2024 - tirzepatide (MOUNJARO) 2.5 mg/0.5 mL pen injector Inject 2.5 mg subcutaneously one time a week. - lisinopril (ZESTRIL) 20 mg tablet Take 1 tablet by mouth once daily. - albuterol HFA (PROVENTIL HFA, VENTOLIN HFA) 90 mcg/actuation inhaler TAKE 2 PUFFS BY MOUTH EVERY 4 HOURS NEEDED - apixaban (ELIQUIS) 5 mg tab(s) Take 1 tablet by mouth two times a day. - amLODIPine (NORVASC) 10 mg tablet Take 1 tablet by mouth once daily. - metFORMIN (GLUCOPHAGE) 500 mg tablet Take 1 tablet by mouth daily with breakfast. - ergocalciferol 50,000 unit capsule (VITAMIN D2, DRISDOL) Take 1 capsule by mouth one time a week. - fluticasone-umeclidin -vilanter (TRELEGY ELLIPTA) 100-62.5-25 mcg inhalation powder Inhale 1 Puff as instructed once daily. - atorvastatin (LIPITOR) 80 mg tablet Take 1 tablet by mouth once daily. - metoprolol succinate ER (TOPROL XL) 25 mg 24 hr tablet Take 1 tablet by mouth once daily. - Lancets lancets Test blood sugar(s) 1 times daily. Dx: Type 2 DM - Controlled E11.9 Insulin: No - blood sugar diagnostic (BLOOD GLUCOSE TEST) test strip Test blood sugar(s) 1 times daily. Dx: Type 2 DM - Controlled E11.9 Insulin: Yes - vit A,C,G-Hlpi-Gnuuhp (PRESERVISION AREDS) 7,160-113-100 qwwm-sy-nyzf tab Take 2 tablets by mouth. - aspirin, enteric coated (ASPIRIN LOW DOSE) 81 mg EC tablet Take 1 tablet by mouth once daily. 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] 07/20/2020 Type 2 diabetes mellitus without complication, *01/16/2021 Coronary artery calcification [I25.10] 06/25/2021 Obesity, Class I, BMI 30-34.9 [E66.811] 11/29/2021 Fatty liver [K76.0] 02/25/2023 Atrial fibrillation with RVR (HCC) [I48.91] 02/25/2023 Obesity, Class II, BMI 35-39.9 [E66.812] 10/03/2023 Paroxysmal atrial fibrillation (HCC) [I48.0] 10/03/2023 On apixaban therapy [Z79.01] 10/03/2023 Encounter Status:Closed by ROD REICH on 05/28/24 Normal [facility] CBC W Auto Differential pane l (Bld)on 05-26-2024 Basophils (Bld) [#/Vol] 0.05 10*3/uL Normal <0.11 [facility] Comment on above: Order Comment: Speci men Type: BLOOD SPECIMENOrdering Facility: [facility] Address: [address] [place] [address] Performed By: #### 5 7021-8 ####[facility] LABCLIA [id number] [place] [address] [place] Basophils/100 WBC (Bld) 0.5 % Normal C [facility] Comment on above: Order Comment: Speci men Type: BLOOD SPECIMENOrdering Facility: [facility] Address: [address] [place] [address] Performed By: #### 5 7021-8 ####[facility] LABCLIA [id number] [place] [address] [place] Differential cell count method Nom (Bld) Auto Normal [facility] Comment on above: Order Comment: Speci men Type: BLOOD SPECIMENOrdering Facility: [facility] Address: [address] [place] [address] Performed By: #### 5 7021-8 ####[facility] LABCLIA [id number] [place] [address] [place] Eosinophils (Bld) [#/Vol] 0.21 10*3/uL Normal <0.46 [facility] Comment on above: Order Comment: Speci men Type: BLOOD SPECIMENOrdering Facility: [facility] Address: [address] [place] [address] Performed By: #### 5 7021-8 ####[facility] LABIA [id number] [place] [address] [place] Eosinophils/100 WBC (Bld) 2.3 % Normal [facility] Comment on above: Order Comment: Speci men Type: BLOOD SPECIMENOrdering Facility: [facility] Address: [address] [place] [address] Performed By: #### 5 7021-8 ####[facility] LABIA [id number] [place] [address] [place] Erythrocyte distribution width (RBC) [Ratio] 13.4 % Normal 11.5-15.0 [facility] Comment on above: Order Comment: Speci men Type: BLOOD SPECIMENOrdering Facility: [facility] Address: [address] [place] [address] Performed By: #### 5 7021-8 ####[facility] LABIA [id number] [address] [place] Hematocrit (Bld) [Volume fraction] 40.9 % Normal 36.0-46.0 [facility] Comment on above: Order Comment: Speci men Type: BLOOD SPECIMENOrdering Facility: [facility] Address: [address] [place] [address] Performed By: #### 5 7021-8 ####[facility] LABCLIA [id number] [place] [address] [place] Hemoglobin (Bld) [Mass/Vol] 13.5 g/dL Normal 11.5-15.5 [facility] Comment on above: Order Comment: Speci men Type: BLOOD SPECIMENOrdering Facility: [facility] Address: [address] [place] [address] Performed By: #### 5 7021-8 ####[facility] LABCLIA [id number] [place] [address] [place] Immature granulocytes (Bld) [#/Vol] 0.04 10*3/uL Normal <0.10 [facility] Comment on above: Order Comment: Speci men Type: BLOOD SPECIMENOrdering Facility: [facility] Address: [address] [place] [address] Performed By: #### 5 7021-8 ####[facility] LABIA [id number] [place] [address] [place] Immature granulocytes/100 WBC (Bld) 0.4 % Normal [facility] Comment on above: Order Comment: Speci men Type: BLOOD SPECIMENOrdering Facility: [facility] Address: [address] [place] [address] Performed By: #### 5 7021-8 ####[facility] LABIA [id number] [place] [address] [place] Lymphocytes (Bld) [#/Vol] 1.43 10*3/uL Normal 1.00-4.00 [facility] Comment on above: Order Comment: Speci men Type: BLOOD SPECIMENOrdering Facility: [facility] Address: [address] [place] [address] Performed By: #### 5 7021-8 ####[facility] LABIA [id number] [place] [address] [place] Lymphocytes/100 WBC (Bld) 15.5 % Normal [facility] Comment on above: Order Comment: Speci men Type: BLOOD SPECIMENOrdering Facility: [facility] Address: [address] [place] [address] Performed By: #### 5 7021-8 ####[facility] LABIA [id number] [place] [address] [place] MCH (RBC) [Entitic mass] 31.8 pg Normal 26.0-34.0 [facility] Comment on above: Order Comment: Speci men Type: BLOOD SPECIMENOrdering Facility: [facility] Address: [address] [place] [address] Performed By: #### 5 7021-8 ####[facility] LABIA [id number] [place] [address] [place] MCHC (RBC) [Mass/Vol] 33.0 g/dL Normal 30.5-36.0 [facility] Comment on above: Order Comment: Speci men Type: BLOOD SPECIMENOrdering Facility: [facility] Address: [address] [place] [address] Performed By: #### 5 7021-8 ####[facility] LABIA [id number] [place] [address] [place] MCV (RBC) [Entitic vol] 96.5 fL Normal 80.0-100.0 C [facility] Comment on above: Order Comment: Speci men Type: BLOOD SPECIMENOrdering Facility: [facility] Address: [address] [place] [address] Performed By: #### 5 7021-8 ####[facility] LABIA [id number] [place] [address] [place] Monocytes (Bld) [#/Vol] 1.08 10*3/uL High <0.87 [facility] Comment on above: Order Comment: Speci men Type: BLOOD SPECIMENOrdering Facility: [facility] Address: [address] [place] [address] Performed By: #### 5 7021-8 ####[facility] LABCLIA [id number] [place] [address] [place] Monocytes/100 WBC (Bld) 11.7 % Normal [facility] Comment on above: Order Comment: Speci men Type: BLOOD SPECIMENOrdering Facility: [facility] Address: [address] [place] [address] Performed By: #### 5 7021-8 ####[facility] LABCLIA [id number] [place] [address] [place] Neutrophils (Bld) [#/Vol] 6.43 10*3/uL Normal 1.45-7.50 [facility] Comment on above: Order Comment: Speci men Type: BLOOD SPECIMENOrdering Facility: [facility] Address: [address] [place] [address] Performed By: #### 5 7021-8 ####[facility] LABCLIA [id number] [place] [address] [place] Neutrophils/100 WBC (Bld) 69.6 % Normal [facility] Comment on above: Order Comment: Speci men Type: BLOOD SPECIMENOrdering Facility: [facility] Address: [address] [place] [address] Performed By: #### 5 7021-8 ####[facility] LABCLIA [id number] [place] [address] [place] Nucleated RBC (Bld) [#/Vol] 10*3/uL Normal <0.01 [facility] Comment on above: Order Comment: Speci men Type: BLOOD SPECIMENOrdering Facility: [facility] Address: [address] [place] [address] Performed By: #### 5 7021-8 ####[facility] LABCLIA [id number] [place] [id number] [place] Nucleated RBC/100 WBC (Bld) [Ratio] 0.0 /100 WBC Normal [facility] Comment on above: Order Comment: Speci men Type: BLOOD SPECIMENOrdering Facility: [facility] Address: [address] [place] [address] Performed By: #### 5 7021-8 ####[facility] LABCLIA [id number] [place] [address] [place] Platelet mean volume (Bld) [Entitic vol] 10.4 fL Normal 9.0-12.7 [facility] Comment on above: Order Comment: Speci men Type: BLOOD SPECIMENOrdering Facility: [facility] Address: [address] [place] [address] Performed By: #### 5 7021-8 ####[facility] LABCLIA [id number] [place] [address] [place] Platelets (Bld) [#/Vol] 261 10*3/uL Normal 150-400 [facility] Comment on above: Order Comment: Speci men Type: BLOOD SPECIMENOrdering Facility: [facility] Address: [address] [place] [address] Performed By: #### 5 7021-8 ####[facility] LABCLIA [id number] [place] [address] [place] RBC (Bld) [#/Vol] 4.24 10*6/uL Normal 3.90-5.20 [facility] Comment on above: Order Comment: Speci men Type: BLOOD SPECIMENOrdering Facility: [facility] Address: [address] [place] [address] Performed By: #### 5 7021-8 ####[facility] LABCLIA [id number] [place] [id number] [place] WBC (Bld) [#/Vol] 9.24 10*3/uL Normal 3.70-11.00 [facility] Comment on above: Order Comment: Speci men Type: BLOOD SPECIMENOrdering Facility: [facility] Address: [address] [place] [address] Performed By: #### 5 7021-8 ####[facility] LABCLIA [id number] [id number] [place] [address] [place] CNOVon 05-26-2024 CNOV Office Visit (FAMPWS ) LOPEZEMILY Jauregui ([id number]) 1950 F Date Time Provider Department 05/26/24 1:00 PM LORENZA VO During your visit today, we recorded the following information about you: Pulse Blood pressure 90/minute 148/68 Lorenza Vo APRN.DRYING TUNNEL OPERATOR 05/26/2024 7:16 PM Signed This is a 73 year old female who presents today with: Patient presents with: Recheck: 1 month follow up HISTORY OF PRESENT ILLNESS: Emily Lopez is a 73 year old female. Patient presents with: Recheck: 1 month follow up DM: Reports overall feeling well. Medication side effects: No. Home sugar checks: No. Hypoglycemic spells: No. Watching diet: Yes. Unexpected weight loss: No. Polyuria, polydipsia: No. Vision Changes: No. Foot lesions or numbness or pain: Yes, numbness in both feet, has been this way for several years Had diarrhea before starting mounjaro Started mounjaro about 2 weeks ago Has not had any issues with the medication Has been able to use the pen well Still taking metformin REVIEW OF SYSTEMS GENERAL: No weight loss, malaise or fevers/chills HEENT: Negative for frequent or significant headaches, No changes in hearing or vision. NECK: Negative for lumps, goiter, pain and significant neck swelling RESPIRATORY: Negative for cough, hemoptysis, wheezing, dyspnea or shortness of breath CARDIOVASCULAR: Negative for chest pain, leg swelling, orthopnea, or palpitations GI: No nausea, vomiting, or diarrhea/constipation . No hematochezia/melena. No heartburn or reflux symptoms. : No history of dysuria, frequency or incontinence MUSCULOSKELETAL: Negative for joint pain or swelling. SKIN: Negative for lesions, rash, and itching ENDOCRINE: Negative for cold or heat intolerance, polyuria, polydipsia and goiter PAST MEDICAL HISTORY: PAST MEDICAL HISTORY Diagnosis Date COPD (chronic obstructive pulmonary disease) (HCC) HTN (hypertension) 01/15/2012 Hyperlipidemia Macular degeneration Meniere's disease PAST SURGICAL HISTORY Procedure Laterality Date APPENDECTOMY CHOLECYSTECTOMY COLONOSCOPY 08/27/2021 repeat in 5 years COLONOSCOPY FLX DX W/COLLJ SPEC WHEN PFRMD 12/04/2016 Colonoscopy - regular villous adenoma recommended 3 year follow-up PAST SURGICAL HISTORY OF exploratory lap for endometriosis SURGERY (GENERAL SURGERY) CONSULT 1997 LEFT ARM SURGERY TONSILLECTOMY HX TOTAL ABDOM HYSTERECTOMY age 42 ALLERGIES Tetanus Vaccines And Toxoid, Codeine, Penicillins, Seasonal Allergies, and Sulfa (Sulfonamide Antibiotics) MEDICATIONS Current Outpatient Medications Medication Sig tirzepatide (MOUNJARO) 2.5 mg/0.5 mL pen injector Inject 2.5 mg subcutaneously one time a week. lisinopril (ZESTRIL) 20 mg tablet Take 1 tablet by mouth once daily. albuterol HFA (PROVENTIL HFA, VENTOLIN HFA) 90 mcg/actuation inhaler TAKE 2 PUFFS BY MOUTH EVERY 4 HOURS NEEDED apixaban (ELIQUIS) 5 mg tab(s) Take 1 tablet by mouth two times a day. amLODIPine (NORVASC) 10 mg tablet Take 1 tablet by mouth once daily. metFORMIN (GLUCOPHAGE) 500 mg tablet Take 1 tablet by mouth daily with breakfast. ergocalciferol 50,000 unit capsule (VITAMIN D2, DRISDOL) Take 1 capsule by mouth one time a week. fluticasone-umeclidin -vilanter (TRELEGY ELLIPTA) 100-62.5-25 mcg inhalation powder Inhale 1 Puff as instructed once daily. atorvastatin (LIPITOR) 80 mg tablet Take 1 tablet by mouth once daily. metoprolol succinate ER (TOPROL XL) 25 mg 24 hr tablet Take 1 tablet by mouth once daily. Lancets lancets Test blood sugar(s) 1 times daily. Dx: Type 2 DM - Controlled E11.9 Insulin: No (Patient not taking: Reported on 10/03/2023) blood sugar diagnostic (BLOOD GLUCOSE TEST) test strip Test blood sugar(s) 1 times daily. Dx: Type 2 DM - Controlled E11.9 Insulin: Yes (Patient not taking: Reported on 10/03/2023) vit A,C,R-Whng-Wjaatj (PRESERVISION AREDS) 7,160-113-100 vtit-lo-uwue tab Take 2 tablets by mouth. aspirin, enteric coated (ASPIRIN LOW DOSE) 81 mg EC tablet Take 1 tablet by mouth once daily. No current facility-administered medications for this visit. FAMILY HISTORY Problem Relation Age of Onset Diabetes Mother Thyroid Mother Diabetes Father COPD Father smoker Diabetes Sister Bipolar disorder Sister Bipolar disorder Daughter other (10 grandchildren) Grandchild Cancer No Family History Social History Tobacco Use Smoking status: Former Current packs/day: 0.00 Average packs/day: 0.8 packs/day for 40.8 years (30.6 ttl pk-yrs) Types: Cigarettes Start date: 02/17/1970 Quit date: 11/26/2010 Years since quittin.5 Smokeless tobacco: Never Vaping Use Vaping status: Never Used Substance Use Topics Alcohol use: Yes Comment: 2 galsses of wine 1-2 times per week Drug use: No EXAM: BP 148/68 Pulse 90 PHYSICAL EXAM: General Appearance: Well appea (more content not included)... Normal [facility] Comprehensive metabolic 2000 panelon 05-26-2024 Albumin [Mass/Vol] 4.5 g/dL Normal 3.9-4.9 [facility] Comment on above: Order Comment: Speci men Type: BLOOD SPECIMENOrdering Facility: [facility] Address: [address] [place] [address] Performed By: #### L IP, 51370-8 ####[facility] LABCLIA [id number] [place] [address] [place] ALP [Catalytic activity/Vol] 140 U/L High 34-123 [facility] Comment on above: Order Comment: Speci men Type: BLOOD SPECIMENOrdering Facility: [facility] Address: [address] [place] [address] Performed By: #### L IPNF, 56202-3 ####[facility] LABCLIA [id number] [address] [address] [place] ALT [Catalytic activity/Vol] 38 U/L Normal 7-38 [facility] Comment on above: Order Comment: Speci men Type: BLOOD SPECIMENOrdering Facility: [facility] Address: [address] [place] [address] Performed By: #### L IPNF, ####[facility] LABCLIA [id number] [place] [id number] [place] Anion gap [Moles/Vol] 14 mmol/L Normal 8-15 [facility] Comment on above: Order Comment: Speci men Type: BLOOD SPECIMENOrdering Facility: [facility] Address: [address] [place] [address] Performed By: #### L IPNF, 09396-7 ####[facility] LABCLIA [id number] [place] [id number] [place] AST [Catalytic activity/Vol] 39 U/L High 13-35 [facility] Comment on above: Order Comment: Speci men Type: BLOOD SPECIMENOrdering Facility: [facility] Address: [address] [place] [address] Performed By: #### L IPNF, 16965-5 ####[facility] LABCLIA [id number] [place] [id number] [place] Bilirubin [Mass/Vol] 0.5 mg/dL Normal 0.2-1.3 [facility] Comment on above: Order Comment: Speci men Type: BLOOD SPECIMENOrdering Facility: [facility] Address: [address] [place] [address] Performed By: #### L IPNF, 48997-2 ####[facility] LABCLIA [id number] [id number] [address] [place] Calcium [Mass/Vol] 9.6 mg/dL Normal 8.5-10.2 [facility] Comment on above: Order Comment: Speci men Type: BLOOD SPECIMENOrdering Facility: [facility] Address: [address] [place] [address] Performed By: #### L IPNF, ####[facility] LABCLIA [id number] [address] [address] [place] Chloride [Moles/Vol] 100 mmol/L Normal 98-107 [facility] Comment on above: Order Comment: Speci men Type: BLOOD SPECIMENOrdering Facility: [facility] Address: [address] [place] [address] Performed By: #### L IPNF, ####[facility] LABCLIA [id number] [place] [address] [place] CO2 [Moles/Vol] 25 mmol/L Normal 22-30 [facility] Comment on above: Order Comment: Speci men Type: BLOOD SPECIMENOrdering Facility: [facility] Address: [address] [place] [address] Performed By: #### L IPNF, ####[facility] LABCLIA [id number] [place] [id number] [place] Creatinine [Mass/Vol] 0.51 mg/dL Low 0.58-0.96 [facility] Comment on above: Order Comment: Speci men Type: BLOOD SPECIMENOrdering Facility: [facility] Address: [address] [place] [address] Performed By: #### L IPNF, ####[facility] LABCLIA [id number] [place] [id number] [place] Creatinine and Glomerular filtration rate.predicted panel (S/P/Bld) 98 mL/min/1.73m??? Normal >=60 [facility] Comment on above: Order Comment: Speci men Type: BLOOD SPECIMENOrdering Facility: [facility] Address: [address] [place] [address] Result Comment: Filomena mated Glomerular Filtration Rate (eGFR) is calculated using the 2020 CKD-EPI creatinine equation. This equation utilizes serum creatinine, sex, and age as parameters. The creatinine assay has traceable calibration to isotope dilution-mass spectrometry. Refer to KDIGO guidelines for clinical interpretation. In patients with unstable renal function, e.g. those with acute kidney injury, the eGFR may not accurately reflect actual GFR. Performed By: #### L CLAY, 17330-9 ####[facility] LABIA [id number] [place] [address] [place] Glucose [Mass/Vol] 128 mg/dL High 74-99 [facility] Comment on above: Order Comment: Reg kelly Type: BLOOD SPECIMENOrdering Facility: [facility] Address: [address] [place] [address] Result Comment: The [place] [employer] (ADA) provides guidance for cutoff values for fasting glucose and random glucose. The ADA defines fasting as no caloric intake for at least 8 hours. Fasting plasma glucose results between 100 to 125 mg/dL indicate increased risk for diabetes (prediabetes). Fasting plasma glucose results greater than or equal to 126 mg/dL meet the criteria for diagnosis of diabetes. In the absence of unequivocal hyperglycemia, results should be confirmed by repeat testing. In a patient with classic symptoms of hyperglycemia or hyperglycemic crisis, random plasma glucose results greater than or equal to 200 mg/dL meet the criteria for diagnosis of diabetes. Reference: Standards of Medical Care in Diabetes 2016, [place] [employer]. Diabetes Care. 2016.39(Suppl 1). Performed By: #### L IP, 93049-7 ####[facility] LABIA [id number] [place] [address] [place] Potassium [Moles/Vol] 4.0 mmol/L Normal 3.7-5.1 [facility] Comment on above: Order Comment: Reg kelly Type: BLOOD SPECIMENOrdering Facility: [facility] Address: [address], [place] [address] Performed By: #### L IPNF, 09704-3 ####[facility] [facility] LABCLIA [id number] [address] [place] [address] [place] Protein [Mass/Vol] 7.3 g/dL Normal 6.3-8.0 [facility] Comment on above: Order Comment: Speci men Type: BLOOD SPECIMENOrdering Facility: [facility] Address: [address] [place] [address] Performed By: #### L IPNF, 73813-0 ####[facility] LABCLIA [id number] [address] [address] [place] Sodium [Moles/Vol] 139 mmol/L Normal 136-144 [facility] Comment on above: Order Comment: Speci men Type: BLOOD SPECIMENOrdering Facility: [facility] Address: [address] [place] [address] Performed By: #### L IPNF, 65317-7 ####[facility] LABCLIA [id number] [address] [address] [place] Urea nitrogen [Mass/Vol] 13 mg/dL Normal 7-21 [facility] Comment on above: Order Comment: Speci men Type: BLOOD SPECIMENOrdering Facility: [facility] Address: [address] [place] [address] Performed By: #### L IPNF, 64832-3 ####[facility] LABCLIA [id number] [address] [address] [place] HbA1c (Bld)on 05-26-2024 Average glucose Estimated from glycated hemoglobin (Bld) [Mass/Vol] 140 mg/dL Normal [facility] Comment on above: Order Comment: Speci men Type: BLOOD SPECIMENOrdering Facility: [facility] Address: [address] [place], [place] [id number] Result Comment: eAG: (Estimated average glucose) is a calculated value from HgbA1c and is tax compliance representative of the average blood glucose level in the last 2-3 month period. Performed By: #### 5 5454-3 ####[facility] LABCLIA [id number] [place] [address] [place] HbA1c (Bld) [Mass fraction] 6.5 % High 4.3-5.6 [facility] Comment on above: Order Comment: Speci men Type: BLOOD SPECIMENOrdering Facility: [facility] Address: [address] [place] [address] Result Comment: Amer ican Diabetes Association guidelines indicate that patients with HgbA1c in the range 5.7-6.4% are at increased risk for development of diabetes, and intervention by lifestyle modification may be beneficial. HgbA1c greater or equal to 6.5% is considered diagnostic of diabetes. Performed By: #### 5 5454-3 ####[facility] LABCLIA [id number] [place] [address] [place] LIPID PANEL, NONFASTINGon Cholesterol [Mass/Vol] 164 mg/dL Normal <200 [facility] Comment on above: Order Comment: Speci men Type: BLOOD SPECIMENOrdering Facility: [facility] Address: [address] [place] [address] Result Comment: <200 mg/dL, Desirable 200-239 mg/dL, Borderline high >239 mg/dL, High Performed By: #### L IPNF, 61810-4 ####[facility] LABCLIA [id number] [place] [address] [place] HDL CHOLESTEROL, NF 45 mg/dL Normal >39 [facility] Comment on above: Order Comment: Speci men Type: BLOOD SPECIMENOrdering Facility: [facility] Address: [address] [place] [address] Result Comment: 40-5 9 mg/dL, Acceptable >59 mg/dL, High: Negative risk factor for coronary heart disease <40 mg/dL, Low: Positive risk factor for coronary heart disease Performed By: #### L IPNF, 29815-2 ####[facility] LABCLIA [id number] [address] STATES OF [facility] LDL CHOLESTEROL, NF 92 mg/dL Normal <100 [facility] Comment on above: Order Comment: Reg kelly Type: BLOOD SPECIMENOrdering Facility: [facility] Address: [address] [place] [address] Result Comment: <100 mg/dL, Optimal 100-129 mg/dL, Near optimal/above optimal 130-159 mg/dL, Borderline high 160-189 mg/dL, High >189 mg/dL, Very high Secondary prevention optimal LDL Cholesterol levels are recommended to be < 70 mg/dL Performed By: #### [place], [address]-6 ####[facility] LABCLIA [id number] [address] LDL/HDL RATIO, NF 2.04 mg/dL Normal <2.54 [facility] Comment on above: Order Comment: Reg kelly Type: BLOOD SPECIMENOrdering Facility: [facility] Address: [address] [place] [address] Result Comment: Refe rence: 1. National Cholesterol Education Program ATP III Guideline At-A-Glance Quick Desk Reference: National Heart, Lung, and Blood [place]. National Institutes of Health. 2001: NIH Publication No. 01-3305. 2. An International Atherosclerosis Society position paper: global recommendations for the management of dyslipidemia: executive summary, Atherosclerosis. 2014: 232(2):410-413. Performed By: #### L IPMARY, 50510-2 ####[facility] LABIA [id number] [address] OF [facility] NON HDL CHOL, NF 119 mg/dL Normal <130 [facility] Comment on above: Order Comment: Reg kelly Type: BLOOD SPECIMENOrdering Facility: [facility] Address: [address] [place] [address] Result Comment: <130 mg/dL, Optimal 130-159 mg/dL, Near optimal/above optimal 160-189 mg/dL, Borderline high 190-219 mg/dL, High >219 mg/dL, Very high Secondary prevention optimal non HDL Cholesterol levels are recommended to be <100 mg/dL Performed By: #### L IPNF, 90980-8 ####[facility] LABCLIA [id number] [address] OF BLACK T CHOL/HDL RATIO NF 3.64 mg/dL Normal <5.10 [facility] Comment on above: Order Comment: Speci men Type: BLOOD SPECIMENOrdering Facility: [facility] Address: [address] [place] [address] Performed By: #### L IPNF, ####[facility] LABIA [id number] [address] [facility] TRIGLYCERIDES, NF 136 mg/dL Normal <150 [facility] Comment on above: Order Comment: Speci men Type: BLOOD SPECIMENOrdering Facility: [facility] Address: [address] [place] [address] Result Comment: <150 mg/dL, Normal 150-199 mg/dL, Borderline high 200-499 mg/dL, High >499 mg/dL, Very high Performed By: #### L IPNF, 98842-2 ####[facility] LABIA [id number] [address] [place] VLDL CHOLESTEROL, NF 27 mg/dL Normal <30 [facility] Comment on above: Order Comment: Speci men Type: BLOOD SPECIMENOrdering Facility: [facility] Address: [address] [place] [address] Performed By: #### L IPNF, 13053-0 ####[facility] LABIA [id number] [address] OF [place]ACK CNNURSEon 05-13-2024 CNNURSE Nurse Visit (MEETPWS) EMILY LOPEZ ([id number]) 1950 F Date Time Provider Department 05/13/24 10:30 AM [place] NURSE SAMANTHA During your visit today, we recorded the following information about you: DIVINE DIANE 05/13/2024 11:09 AM Signed Patient presents for self injection teaching. States that she was given a lot of helpful information at her last OV, but wanted to make sure she was doing it correctly when having to actually administer medication. Brought medication with her to appt. Reviewed over proper med prep, hand hygiene, administration, and disposal of supplies. Pt was able to complete teachback and administer medication at this time with minimal assistance. Son accompanied pt and verbalized understanding of all instructions also (pt is visually impaired and he will be assisting). Answered all questions at this time. Pt verbalized understanding. Spent 15-20 minutes of appt with face to face education. Pt alert and oriented. Divine Diane LPN Allergies As of Date: 05/13/2024 Noted Allergy Reaction TETANUS VACCINES AND TOXOID 12/26/2011 10 - Anaphylaxis CODEINE 07/03/2012 14 - Other: See Comments Comments: Patient states it feels like bugs are crawling on her PENICILLINS 12/26/2011 2 - Rash SEASONAL ALLERGIES 12/27/2011 14 - Other: See Comments SULFA (SULFONAMIDE ANTIBIOTICS) 12/26/2011 2 - Rash Date Reviewed: 04/28/2024 Reviewed by: Gil Garnica LPN - Fully Assessed Reason for Visit: Education Of Patient/family [904] Primary Visit Diagnosis:Type 2 diabetes mellitus without complication, without long-term current use of insulin (HCC) [E11.9] Prescriptions as of 05/28/2024 - tirzepatide (MOUNJARO) 2.5 mg/0.5 mL pen injector Inject 2.5 mg subcutaneously one time a week. - lisinopril (ZESTRIL) 20 mg tablet Take 1 tablet by mouth once daily. - albuterol HFA (PROVENTIL HFA, VENTOLIN HFA) 90 mcg/actuation inhaler TAKE 2 PUFFS BY MOUTH EVERY 4 HOURS NEEDED - apixaban (ELIQUIS) 5 mg tab(s) Take 1 tablet by mouth two times a day. - amLODIPine (NORVASC) 10 mg tablet Take 1 tablet by mouth once daily. - metFORMIN (GLUCOPHAGE) 500 mg tablet Take 1 tablet by mouth daily with breakfast. - ergocalciferol 50,000 unit capsule (VITAMIN D2, DRISDOL) Take 1 capsule by mouth one time a week. - fluticasone-umeclidin -vilanter (TRELEGY ELLIPTA) 100-62.5-25 mcg inhalation powder Inhale 1 Puff as instructed once daily. - atorvastatin (LIPITOR) 80 mg tablet Take 1 tablet by mouth once daily. - metoprolol succinate ER (TOPROL XL) 25 mg 24 hr tablet Take 1 tablet by mouth once daily. - Lancets lancets Test blood sugar(s) 1 times daily. Dx: Type 2 DM - Controlled E11.9 Insulin: No - blood sugar diagnostic (BLOOD GLUCOSE TEST) test strip Test blood sugar(s) 1 times daily. Dx: Type 2 DM - Controlled E11.9 Insulin: Yes - vit A,C,T-Khpa-Ljdvhd (PRESERVISION AREDS) 7,160-113-100 jhue-wo-sxxj tab Take 2 tablets by mouth. - aspirin, enteric coated (ASPIRIN LOW DOSE) 81 mg EC tablet Take 1 tablet by mouth once daily. Problem List As Of Date 05/13/2024 Noted Resolved Hyperlipidemia [E78.5] HTN (hypertension) [I10] 01/15/2012 Fracture of proximal humerus [S42.209A] 03/24/2014 02/19/2018 Other emphysema (HCC) [J43.8] 12/09/2014 07/20/2020 Osteopenia [M85.80] 09/21/2015 History of colonic polyps [Z86.0100] 11/07/2016 Lung nodule [R91.1] 03/09/2020 COPD with chronic bronchitis (HCC) [J44.89] 07/20/2020 Type 2 diabetes mellitus without complication, *01/16/2021 Coronary artery calcification [I25.10] 06/25/2021 Obesity, Class I, BMI 30-34.9 [E66.811] 11/29/2021 Fatty liver [K76.0] 02/25/2023 Atrial fibrillation with RVR (HCC) [I48.91] 02/25/2023 Obesity, Class II, BMI 35-39.9 [E66.812] 10/03/2023 Paroxysmal atrial fibrillation (HCC) [I48.0] 10/03/2023 On apixaban therapy [Z79.01] 10/03/2023 Encounter Status:Closed by DIVINE DIANE on 05/13/24 Normal [facility] CNOVon 04-28-2024 [facility]OPE[facility] ([id number]) 1950 F Date Time Provider Department 04/28/24 1:00 PM LORENZA VO During your visit today, we recorded the following information about you: Pulse Respiration Blood pressure Weight 95/minute 16/minute 102/74 90.3 kg Lorenza Vo APRN.DRYING TUNNEL OPERATOR 04/30/2024 10:06 AM Signed This is a 73 year old female who presents today with: Patient presents with: 6 Month Exam HISTORY OF PRESENT ILLNESS: Emily Lopez is a 73 year old female. Patient presents with: 6 Month Exam HTN: Patient is compliant with meds Yes Monitors bp at home: No. Denies side effects: Yes. Chest pain: just a discomfort. Short -- just enough to notice and then by the time she raises her hand to her chest, it is gone. Dyspnea: not worse than normal -- but things that getting progressing as she ages. Edema: No. Palpitations: No. Syncope: No. Headache: No. Dizziness: postural -- when she gets up to go to the bathroom. HYPERLIPIDEMIA: Patient is taking medications: Yes. Patient is watching diet: Yes. Patient denies myalgias: Yes. Patient denies gi upset: Yes DM: Reports overall feeling well. Medication side effects: Yes. Diarrhea. Home sugar checks: can't see to check sugars. Hypoglycemic spells: No. Watching diet: Yes. Unexpected weight loss: No. Polyuria, polydipsia: has had dry mouth for the last 6 weeks. Vision Changes: No. Foot lesions or numbness or pain: feet has been numb for the last 19 years. A fib/CAD: Chronic anticoagulation No abnormal s/s of bleeding. COPD Refers that pulmonology thinks that stomach fat is hindering breathing. Recommending a GLP-1. She was on rybelsus, as previously didn't think that she could visually see to do injections. She is not currently taking. Lung nodule Low-dose lung CT completed in January. PAST MEDICAL HISTORY: PAST MEDICAL HISTORY Diagnosis Date COPD (chronic obstructive pulmonary disease) (HCC) HTN (hypertension) 01/15/2012 Hyperlipidemia Macular degeneration Meniere's disease PAST SURGICAL HISTORY Procedure Laterality Date APPENDECTOMY CHOLECYSTECTOMY COLONOSCOPY 08/27/2021 repeat in 5 years COLONOSCOPY FLX DX W/COLLJ SPEC WHEN PFRMD 12/04/2016 Colonoscopy - regular villous adenoma recommended 3 year follow-up PAST SURGICAL HISTORY OF exploratory lap for endometriosis SURGERY (GENERAL SURGERY) CONSULT 1997 LEFT ARM SURGERY TONSILLECTOMY HX TOTAL ABDOM HYSTERECTOMY age 42 ALLERGIES Tetanus Vaccines And Toxoid, Codeine, Penicillins, Seasonal Allergies, and Sulfa (Sulfonamide Antibiotics) MEDICATIONS Current Outpatient Medications Medication Sig albuterol HFA (PROVENTIL HFA, VENTOLIN HFA) 90 mcg/actuation inhaler TAKE 2 PUFFS BY MOUTH EVERY 4 HOURS NEEDED apixaban (ELIQUIS) 5 mg tab(s) Take 1 tablet by mouth two times a day. amLODIPine (NORVASC) 10 mg tablet Take 1 tablet by mouth once daily. semaglutide (RYBELSUS) 3 mg tablet Take 1 tablet by mouth daily before breakfast. Take 30 minutes before the first food, beverage, or other oral medications of the day with no more than 4 ounces of plain water (Patient not taking: Reported on 02/02/2024) lisinopril (ZESTRIL) 30 mg tablet Take 1 tablet by mouth once daily. metFORMIN (GLUCOPHAGE) 500 mg tablet Take 1 tablet by mouth daily with breakfast. ergocalciferol 50,000 unit capsule (VITAMIN D2, DRISDOL) Take 1 capsule by mouth one time a week. fluticasone-umeclidin -vilanter (TRELEGY ELLIPTA) 100-62.5-25 mcg inhalation powder Inhale 1 Puff as instructed once daily. atorvastatin (LIPITOR) 80 mg tablet Take 1 tablet by mouth once daily. metoprolol succinate ER (TOPROL XL) 25 mg 24 hr tablet Take 1 tablet by mouth once daily. Lancets lancets Test blood sugar(s) 1 times daily. Dx: Type 2 DM - Controlled E11.9 Insulin: No (Patient not taking: Reported on 10/03/2023) blood sugar diagnostic (BLOOD GLUCOSE TEST) test strip Test blood sugar(s) 1 times daily. Dx: Type 2 DM - Controlled E11.9 Insulin: Yes (Patient not taking: Reported on 10/03/2023) vit A,C,K-Debw-Xvhtee (PRESERVISION AREDS) 7,160-113-100 bfwg-mf-dqjh tab Take 2 tablets by mouth. aspirin, enteric coated (ASPIRIN LOW DOSE) 81 mg EC tablet Take 1 tablet by mouth once daily. No current facility-administered medications for this visit. FAMILY HISTORY Problem Relation Age of Onset Diabetes Mother Thyroid Mother Diabetes Father COPD Father smoker Diabetes Sister Bipolar disorder Sister Bipolar disorder Daughter other (10 grandchildren) Grandchild Cancer No Family History Social History Tobacco Use Smoking status: Former Current packs/day: 0.00 Average packs/day: 0.8 packs/day for 40.8 years (30.6 ttl pk-yrs) Types: Cigarettes Start date: 02/17/1970 Quit date: 11/26/2010 Years since quittin.4 Smokeless tobacco: Ne (more content not included)... [facility] ) EMILY LOPEZ ([id number]) 1950 F Date Time Provider Department 02/12/24 2:45 PM HODA CYR During your visit today, we recorded the following information about you: Pulse Blood pressure Weight 92/minute 124/84 90.8 kg Hoda Cyr MD 02/12/2024 5:23 PM Signed . Respiratory [place] Note Patient name: Emily Lopez PCP: Rober Rubio MD CC: COPD HPI: Emily Lopez 73 year old female former 30 pack year smoker, quitting in 2010 with PMH significant for COPD, HTN, legally blind last seen by me in 2020. At that time her inhaled therapy consisted of Trelegy Ellipta, as needed albuterol and nocturnal oxygen. Today she states she has been more short of breath with less activity. She attributes this to her truncal obesity. Asking about aids to help her lose weight. She has been trying to walk more regularly on the treadmill. She denies chronic cough, wheezing. She does have some difficulty expectorating phlegm. She has not been ill with any upper respiratory infection nor required hospitalization. She has been participating in lung cancer screening with last imaging showing bilateral areas of atelectasis and stable pulmonary nodules. DATA: PFT 2020: Imaging / Diagnostic Studies: DATE OF EXAM: Feb 02 2024 1:58PM [facility] 0561 - CT LUNG FOLLOWUP WO IVCON / PROCEDURE REASON: Lung nodules COMPARISON: Prior lung screen dated 07/23/2023 RESULT: Are nodules present? Yes, 1-5 nodules Lung nodule comments: 4 mm left lower lobe nodule (196) unchanged. 4 mm subpleural right lower lobe nodule (184) unchanged. 4 mm left upper lobe nodule (130) unchanged. 3 mm right lower lobe nodule (144) unchanged. Other findings: Moderate to severe coronary calcifications. Mitral annular calcification. Aortic wall calcifications. Degenerative changes of the thoracic spine. Diffuse bronchial thickening with mild upper lobe emphysema and scattered lower linear opacities likely atelectasis. Incidental coronary calcium as automatically processed and calculated using AI: Total Coronary Calcium Score = [100+] Agatston Units Percentile Rank (age and gender matched relative to reference population): [75th-100th] percentile* [* [email or web address]] PAST MEDICAL HISTORY Diagnosis Date COPD (chronic obstructive pulmonary disease) (HCC) HTN (hypertension) 01/15/2012 Hyperlipidemia Macular degeneration Meniere's disease ALLERGIES Allergen Reactions Tetanus Vaccines An* Anaphylaxis Codeine Other: See Comments Patient states it feels like bugs are crawling on her Penicillins Rash Seasonal Allergies Other: See Comments Sulfa (Sulfonamide * Rash apixaban (ELIQUIS) 5 mg tab(s) Take 1 tablet by mouth two times a day. amLODIPine (NORVASC) 10 mg tablet Take 1 tablet by mouth once daily. lisinopril (ZESTRIL) 30 mg tablet Take 1 tablet by mouth once daily. metFORMIN (GLUCOPHAGE) 500 mg tablet Take 1 tablet by mouth daily with breakfast. ergocalciferol 50,000 unit capsule (VITAMIN D2, DRISDOL) Take 1 capsule by mouth one time a week. albuterol HFA (PROAIR HFA) 90 mcg/actuation inhaler Inhale 2 Puffs as instructed every 4 hours as needed. fluticasone-umeclidin -vilanter (TRELEGY ELLIPTA) 100-62.5-25 mcg inhalation powder Inhale 1 Puff as instructed once daily. atorvastatin (LIPITOR) 80 mg tablet Take 1 tablet by mouth once daily. metoprolol succinate ER (TOPROL XL) 25 mg 24 hr tablet Take 1 tablet by mouth once daily. vit A,C,K-Fmaz-Ksnwnx (PRESERVISION AREDS) 7,160-113-100 wdbn-gz-swwe tab Take 2 tablets by mouth. aspirin, enteric coated (ASPIRIN LOW DOSE) 81 mg EC tablet Take 1 tablet by mouth once daily. semaglutide (RYBELSUS) 3 mg tablet Take 1 tablet by mouth daily before breakfast. Take 30 minutes before the first food, beverage, or other oral medications of the day with no more than 4 ounces of plain water (Patient not taking: Reported on 02/02/2024) Lancets lancets Test blood sugar(s) 1 times daily. Dx: Type 2 DM - Controlled E11.9 Insulin: No (Patient not taking: Reported on 10/03/2023) blood sugar diagnostic (BLOOD GLUCOSE TEST) test strip Test blood sugar(s) 1 times daily. Dx: Type 2 DM - Controlled E11.9 Insulin: Yes (Patient not taking: Reported on 10/03/2023) Social History Tobacco Use Smoking status: Former Current packs/day: 0.00 Average packs/day: 0.8 packs/day for 40.8 years (30.6 ttl pk-yrs) Types: Cigarettes Start date: 02/17/1970 Quit date: 11/26/2010 Years since quittin.2 Smokeless tobacco: Never Vaping Use Vaping status: Never Used Substance Use Topics Alcohol use: Yes Comment: 2 galsses of wine 1-2 times per week Drug use: No FAMILY HISTORY Problem Relation Age of Onset Diabetes Mother Thyroid Mother Diabetes Father COPD Fa (more content not included)... Normal [facility] CNOVon 02-02-2024 CNOV Office Visit (PULMWS ) EMILY LOPEZ ([id number]) 1950 F Date Time Provider Department 02/02/24 2:00 PM MARTIN BENITES PULYOEL During your visit today, we recorded the following information about you: Pulse Respiration Blood pressure Weight 101/minute 18/minute 114/70 89.8 kg Martin Benites APRN.CNP 02/02/2024 3:04 PM Signed Chief Complaint: 6 mos follow-up from LDCT scan dated 07/23/2023 for LUNG RADS Category 3 finding of new part solid RUL nodule. History of Present Illness: Emily Lopez is a 73 year old female who is presenting today for pulmonary nodule follow-up. Nodule was found through lung cancer screening on LDCT. Patient is a former smoker with a 30.6 pack year history. Since the patient's last visit the patient has not had new medical issues or hospitalizations. No recent respiratory infections/pneumonia. The patient does not require assistance with normal activities of daily living. Modified Medical Research [place] Dyspnea Scale (MMRC) I only get breathless with strenous exercise 0 Patient denies SOB with their daily activity. No wheezing or dyspnea. Patient denies feeling of chest tightness/congestion in the chest. Patient does not have a new or concerning cough, and denies hemoptysis. Patient does not have a chronic daily cough. Denies regular or recent fevers/chills. Patient does not have any significant unintentional weight loss. Patient denies having any respiratory infections or COVID-19 in the past few months. Occasional cough with allergies-white sputum. Last 12 Encounter Wt Readings: Date: Wt: 02/02/2024 89.8 kg (198 lb) 10/03/2023 87.4 kg (192 lb 10.9 oz) 08/08/2023 86.2 kg (190 lb) 07/23/2023 84.7 kg (186 lb 11.7 oz) 07/16/2023 85.3 kg (188 lb) 04/14/2023 82.1 kg (181 lb) 02/24/2023 82.6 kg (182 lb) 01/31/2023 76.6 kg (168 lb 14.4 oz) 06/01/2022 82.6 kg (182 lb) 01/15/2022 81.6 kg (180 lb) 11/29/2021 79.8 kg (176 lb) 08/27/2021 81.6 kg (180 lb) Medication Treatment: Are you using regular inhalers?: Yes Trelegy Past Medical History: PAST MEDICAL HISTORY Diagnosis Date COPD (chronic obstructive pulmonary disease) (HCC) HTN (hypertension) 01/15/2012 Hyperlipidemia Macular degeneration Meniere's disease Surgical Hx: PAST SURGICAL HISTORY Procedure Laterality Date APPENDECTOMY CHOLECYSTECTOMY COLONOSCOPY 08/27/2021 repeat in 5 years COLONOSCOPY FLX DX W/COLLJ SPEC WHEN PFRMD 12/04/2016 Colonoscopy - regular villous adenoma recommended 3 year follow-up PAST SURGICAL HISTORY OF exploratory lap for endometriosis SURGERY (GENERAL SURGERY) CONSULT 1997 LEFT ARM SURGERY TONSILLECTOMY HX TOTAL ABDOM HYSTERECTOMY age 42 Family Hx: FAMILY HISTORY Problem Relation Age of Onset Diabetes Mother Thyroid Mother Diabetes Father COPD Father smoker Diabetes Sister Bipolar disorder Sister Bipolar disorder Daughter other (10 grandchildren) Grandchild Cancer No Family History Allergies: ALLERGIES Allergen Reactions Tetanus Vaccines An* Anaphylaxis Codeine Other: See Comments Patient states it feels like bugs are crawling on her Penicillins Rash Seasonal Allergies Other: See Comments Sulfa (Sulfonamide * Rash Social History Tobacco Use: Types: Cigarettes Review Of Systems: See HPI for ROS All of the remainder systems were reviewed and negative. PHYSICAL EXAMINATION: BP 114/70 Pulse 101 Resp 18 Wt 198 lb (89.8kg) SpO2 95% General appearance: well appearing, in no acute distress, and alert Skin: skin color, texture, turgor normal, no rashes or lesions Neck: Supple, no adenopathy; thyroid symmetric, normal size Respiratory: lungs clear to auscultation no wheezing or rhonchi Cardiovascular: Negative. RRR without murmur, gallop, or rubs. No ectopy Musculoskeletal: Extremities normal. No deformities, edema, or skin discoloration. Neuro: Oriented X 3 Data Review I have visually reviewed imaging and testing below CT imaging done today was reviewed and analyzed independently by practitioner and awaiting radiology review. CT was compared to prior CT chest. Prior PFTS: SPIROMETRY - BASELINE AND POST DILATOR ([id number]) - ordered on 03/08/20 [place] [id number] [facility] [place] [address] Test Date: 2020-03-08 Pat Name: EMILY LOPEZ Department: Room: Gender: Female Elder Assistant: STEPHY Scales : 1950 Requested By: Rober RUBIO Order Number: [id number] Reading MD: Hoda Cyr M.D. Interpretive Statements 2 Puffs of albuterol (180mcg) delivered by MDI via Aerochamber HRpre =101 /min, HRpost= 101/min. ATS/ERS acceptability and repeatability standards for spirometry met. IMPRESSION: Spirometry indicates moderate obstruction. There was not a significant bronchodilator response. Electronically Signed On 03-09-19 (more content not included)... Normal [facility] CT LUNG FOLLOWUP WO IVCONon 02-02-2024 CT LUNG FOLLOWUP WO IVCON * * *Final Report* * * DATE OF EXAM: Feb 02 2024 1:58PM [facility] 0561 - CT LUNG FOLLOWUP WO IVCON / PROCEDURE REASON: Lung nodules * * * * Physician Interpretation * * * * EXAMINATION: CT LUNG FOLLOWUP WO IVCON CLINICAL HISTORY: Lung nodules Technique: Spiral CT acquisition of the chest from the thoracic inlet to the upper abdomen without contrast. MQ: CTLCS_6 Followup LDCT Patient characteristics: * Aada-hp-Giuop: 1950; Age at exam: 73 years * Gender: Female * Lung Disease: Asymptomatic (no signs or symptoms of lung disease) * Number of Pack Years: 30 * Current smoker (=0) or Number of Years since Quit: 12 * Ordering provider and NPI: MARTIN BENITES [id number] * Interpreting radiologist and NPI: Darrell [id number] Exam acquisition parameters: * Exam Date: 02/02/2024 1:58 PM * Site: [facility] * * CT System Physical Security Specialist: Siemens * CT System Model: Sensation * Tube Current-Time (mA-sec): 31 * Peak Voltage (kV): 120V * Scan Time (sec): 9.92 * Scan Volume (z-length, cm): -26.15 * Pitch: 0.75 * Slice Thickness (mm): 1.5 * CT Dose-Length Product: 90 mGy*cm * CT Dose Index: 2.40mGy * CT Dose Reduction Method: Automated exposure control(AEC) and iterative recon COMPARISON: Prior lung screen dated 07/23/2023 RESULT: Are nodules present? Yes, 1-5 nodules Lung nodule comments: 4 mm left lower lobe nodule (196) unchanged. 4 mm subpleural right lower lobe nodule (184) unchanged. 4 mm left upper lobe nodule (130) unchanged. 3 mm right lower lobe nodule (144) unchanged. Other findings: Moderate to severe coronary calcifications. Mitral annular calcification. Aortic wall calcifications. Degenerative changes of the thoracic spine. Diffuse bronchial thickening with mild upper lobe emphysema and scattered lower linear opacities likely atelectasis. Incidental coronary calcium as automatically processed and calculated using AI: Total Coronary Calcium Score = [100+] Agatston Units Percentile Rank (age and gender matched relative to reference population): [75th-100th] percentile* [* [email or web address]-nhlb [email or web address]/calcium/input.[email or web address] spx] IMPRESSION: LungRADS category: 2 LungRADS modifier: None LungRADS 0 reason: n/a Recommendations: Continue annual screening with LDCT in 12 months. Reference: [employer]. Lung CT Screening Reporting and Data System (Lung-RADS). Available at: http://www.acr.org/Qu rubénalden-Safety/Resource s/LungRADS Film Casting Operator: ELLEN Transcribe Date/Time: Feb 03 2024 9:37A Dictated by : MALIK MULLINS MD This examination was interpreted and the report reviewed and electronically signed by: MALIK MULLINS MD on Feb 03 2024 9:44AM EST [id number] Normal [facility] CNOVon 11-04-2023 CNOV Office Visit (VASSWS ) EMILY LOPEZ ([id number]) 1950 F Date Time Provider Department 11/04/23 9:15 AM EMILY ADAMSS During your visit today, we recorded the following information about you: Pulse Blood pressure 94/minute 146/70 Emily Adams DO 12/02/2023 10:10 AM Signed [facility] [place] DEPARTMENT OF VASCULAR SURGERY OUTPATIENT VISIT DATE November 04, 2023 OUTPATIENT VISIT TYPE ESTABLISHED SERVICE DATE: 11/04/2023 SERVICE TIME: 9:45 AM PRIMARY CARE PHYSICIAN: Rober Rubio MD HISTORY OF PRESENT ILLNESS: Ms. Lopez is a 73 year old female who presents today for a vascular surgery follow-up visit for carotid artery disease. Denies focal deficit. Does have claudication PAST MEDICAL HISTORY Diagnosis Date COPD (chronic obstructive pulmonary disease) (HCC) HTN (hypertension) 01/15/2012 Hyperlipidemia Macular degeneration Meniere's disease PAST SURGICAL HISTORY Procedure Laterality Date APPENDECTOMY CHOLECYSTECTOMY COLONOSCOPY 08/27/2021 repeat in 5 years COLONOSCOPY FLX DX W/COLLJ SPEC WHEN PFRMD 12/04/2016 Colonoscopy - regular villous adenoma recommended 3 year follow-up PAST SURGICAL HISTORY OF exploratory lap for endometriosis SURGERY (GENERAL SURGERY) CONSULT 1997 LEFT ARM SURGERY TONSILLECTOMY HX TOTAL ABDOM HYSTERECTOMY age 42 SOCIAL HISTORY Social History Tobacco Use Smoking status: Former Current packs/day: 0.00 Average packs/day: 0.8 packs/day for 40.8 years (30.6 ttl pk-yrs) Types: Cigarettes Start date: 02/17/1970 Quit date: 11/26/2010 Years since quittin.9 Smokeless tobacco: Never Vaping Use Vaping status: Never Used Substance Use Topics Alcohol use: Yes Comment: 2 galsses of wine 1-2 times per week Drug use: No MEDICATIONS: semaglutide (RYBELSUS) 3 mg tablet Take 1 tablet by mouth daily before breakfast. Take 30 minutes before the first food, beverage, or other oral medications of the day with no more than 4 ounces of plain water lisinopril (ZESTRIL) 30 mg tablet Take 1 tablet by mouth once daily. apixaban (ELIQUIS ORAL) Take by mouth. metFORMIN (GLUCOPHAGE) 500 mg tablet Take 1 tablet by mouth daily with breakfast. ergocalciferol 50,000 unit capsule (VITAMIN D2, DRISDOL) Take 1 capsule by mouth one time a week. albuterol HFA (PROAIR HFA) 90 mcg/actuation inhaler Inhale 2 Puffs as instructed every 4 hours as needed. fluticasone-umeclidin -vilanter (TRELEGY ELLIPTA) 100-62.5-25 mcg inhalation powder Inhale 1 Puff as instructed once daily. atorvastatin (LIPITOR) 80 mg tablet Take 1 tablet by mouth once daily. metoprolol succinate ER (TOPROL XL) 25 mg 24 hr tablet Take 1 tablet by mouth once daily. vit A,C,F-Rpmi-Ltxlbu (PRESERVISION AREDS) 7,160-113-100 bpgv-pz-ucxz tab Take 2 tablets by mouth. aspirin, enteric coated (ASPIRIN LOW DOSE) 81 mg EC tablet Take 1 tablet by mouth once daily. amLODIPine (NORVASC) 10 mg tablet Take 1 tablet by mouth once daily. Lancets lancets Test blood sugar(s) 1 times daily. Dx: Type 2 DM - Controlled E11.9 Insulin: No (Patient not taking: Reported on 10/03/2023) blood sugar diagnostic (BLOOD GLUCOSE TEST) test strip Test blood sugar(s) 1 times daily. Dx: Type 2 DM - Controlled E11.9 Insulin: Yes (Patient not taking: Reported on 10/03/2023) ALLERGIES: ALLERGIES Allergen Reactions Tetanus Vaccines An* Anaphylaxis Codeine Other: See Comments Patient states it feels like bugs are crawling on her Penicillins Rash Seasonal Allergies Other: See Comments Sulfa (Sulfonamide * Rash PHYSICAL EXAM: BP 146/70 (BP Site: Right Arm, BP Position: Sitting, BP Cuff Size: Regular Adult) Pulse 94 SpO2 97% General: Alert and oriented Integumentary: Normal color, no rash, no lesions. HEENT: EOM, pupils equal, round and reactive. Cardiovascular: Pulse regular. Lungs: No chest deformities or chest wall tenderness. Extremities: No deformity, no edema or tenderness, no joint swelling or clubbing. Neurological: Normal cognition and motor skills. Vascular: non palpable distal pulses Diagnostic tests reviewed for today's visit: Most recent labs Most recent imaging PVRs RIGHT SIDE Resting right ankle brachial index: 0.61 Right toe brachial index: 0.53 Abnormal ankle brachial index at rest diagnostic of peripheral artery disease. Abnormal toe brachial index at rest is evidence of peripheral artery disease. Right ankle: Moderate disease at rest. Aortic or bilateral iliofemoral disease. Right distal superficial femoral and/or popliteal disease. LEFT SIDE Resting left ankle brachial index: 0.46 Left toe brachial index: 0.42 Abnormal ankle brachial index at rest diagnostic of peripheral artery disease. Abnormal toe brachial index at rest is evidence of peripheral artery disease. Left ankle: Moderate disease at rest. Aortic or (more content not included)... Normal [facility] PVR LEG MARCELLE VAS LABon 2023 PVR LEG [facility] LAB Non-Invasive Vascula r Laboratory [facility] Lower Extremity Arterial Physiology Study Bilateral/Complete Date of service/time: 10/30/2023 12:41:34 PM Name: MRS. EMILY LOPEZ Date of : 1950 Age: 73 years Gender: F Clinical Indication Peripheral vascular disease. TECHNIQUE -------- An arterial physiological examination was performed, including measurement of blood pressures using continuous wave Doppler and recording of plethysmographic with or without Doppler waveforms at the below-mentioned limb segments. FINDINGS -------- RIGHT SIDE AT REST Right Doppler Waveforms Dorsalis pedis: Monophasic. Post tibial: Monophasic. Right Pressures Brachial: 145 mmHg High thigh: 123 mmHg Low thigh: 128 mmHg Calf: 95 mmHg Ankle dorsalis pedis: 77 mmHg BUCK: 0.53 Ankle posterior tibial: 88 mmHg BUCK: 0.61 Digit: 77 mmHg LEFT SIDE AT REST Left Doppler Waveforms Dorsalis pedis: Monophasic. Post tibial: Monophasic. Left Pressures Brachial: 101 mmHg High thigh: 128 mmHg Low thigh: 96 mmHg Calf: 87 mmHg Ankle dorsalis pedis: 59 mmHg BUCK: 0.41 Ankle posterior tibial: 66 mmHg BUCK: 0.46 Digit: 61 mmHg IMPRESSION RIGHT SIDE Resting right ankle brachial index: 0.61 Right toe brachial index: 0.53 Abnormal ankle brachial index at rest diagnostic of peripheral artery disease. Abnormal toe brachial index at rest is evidence of peripheral artery disease. Right ankle: Moderate disease at rest. Aortic or bilateral iliofemoral disease. Right distal superficial femoral and/or popliteal disease. LEFT SIDE Resting left ankle brachial index: 0.46 Left toe brachial index: 0.42 Abnormal ankle brachial index at rest diagnostic of peripheral artery disease. Abnormal toe brachial index at rest is evidence of peripheral artery disease. Left ankle: Moderate disease at rest. Aortic or bilateral iliofemoral disease. Left superficial femoral disease. Left infrapopliteal disease. Technologist: Brooke Del Rosario RVT, [facility] Ordering physician: EMILY ADAMS Interpreting physician: LATRICE Alegria DO Final CC [employer] [facility] Image : [id number] amicsSISUID See Link below for Image Normal [facility] US CAROTID ARTERIES MARCELLE VAS LABon 10-30-2023 US CAROTID ARTERIES MARCELLE VAS LAB Non-Invasive Vascular Laboratory [facility] Carotid Duplex Bilateral/Complete Date of service/time: 10/30/2023 12:40:53 PM Name: MRS. 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 TECHNIQUE -------- A carotid duplex ultrasound examination was performed, including grayscale imaging and color Doppler and spectral Doppler examination of the below mentioned arteries. FINDINGS -------- RIGHT SIDE Common carotid artery: Origin: PSV: 199 cm/s. EDV: 21 cm/s. Proximal: PSV: 109 cm/s. EDV: 14 cm/s. Mid: PSV: 90 cm/s. EDV: 13 cm/s. Distal: PSV: 78 cm/s. EDV: 13 cm/s. Internal carotid artery: Origin: PSV: 73 cm/s. EDV: 14 cm/s. Proximal: PSV: 71 cm/s. EDV: 17 cm/s. Mid: PSV: 46 cm/s. EDV: 10 cm/s. Distal: PSV: 56 cm/s. EDV: 15 cm/s. Moderate heterogeneous calcified and shadowing plaque at origin. ICA/CCA Ratio: 0.9 External carotid artery: Origin: PSV: 154 cm/s. EDV: 0 cm/s. Moderate heterogeneous calcified and shadowing plaque at origin. Subclavian artery: Origin: PSV: 226 cm/s. EDV: 0 cm/s. Moderate heterogeneous plaque at origin. Innominate artery: PSV: 312 cm/s. EDV: 0 cm/s. Mild heterogeneous plaque at distal. Vertebral artery: PSV: 81 cm/s. EDV: 12 cm/s. LEFT SIDE Common carotid artery: Proximal: PSV: 101 cm/s. EDV: 13 cm/s. Mid: PSV: 96 cm/s. EDV: 15 cm/s. Distal: PSV: 80 cm/s. EDV: 18 cm/s. Mild heterogeneous plaque from mid to distal. Internal carotid artery: Origin: PSV: 241 cm/s. EDV: 43 cm/s. Proximal: PSV: 168 cm/s. EDV: 17 cm/s. Mid: PSV: 104 cm/s. EDV: 18 cm/s. Distal: PSV: 72 cm/s. EDV: 12 cm/s. Moderate heterogeneous plaque from origin to proximal. ICA/CCA Ratio: 3.0 External carotid artery: Proximal: PSV: 318 cm/s. EDV: 0 cm/s. Moderate heterogeneous calcified and shadowing plaque at origin. Subclavian artery: Proximal: PSV: 115 cm/s. EDV: 0 cm/s. IMPRESSION RIGHT SIDE Internal carotid artery: 20-39% stenosis. Findings may be underestimated due to calcified shadowing plaque at origin . Tortuous vessel at mid . Vertebral artery: Patent and antegrade flow noted. Innominate artery: 50-99% stenosis. Subclavian artery: Plaque visualized without evidence of hemodynamically significant stenosis. LEFT SIDE Common carotid artery: Plaque visualized without evidence of hemodynamically significant stenosis. Internal carotid artery: 60-79% stenosis. External carotid artery: Elevated velocities and plaque noted. Vertebral artery: Bidirectional flow is evidence of incomplete subclavian steal. Subclavian artery: Turbulent flow noted, cannot rule out more proximal subclavian artery stenosis. May wish other means of evaluation. Technologist: Brooke Del Rosario RVT, RDMS Ordering physician: EMILY ADAMS Interpreting physician: LATRICE Alegria DO Final CC [employer] Image : [id number] amicsSISUID See Link below for Image Normal [facility] CNOVon 10-28-2023 CNOV Office Visit (FAMPWS ) EMILY LOPEZ ([id number]) 1950 F Date Time Provider Department 10/28/23 1:40 PM LORENZA VO During your visit today, we recorded the following information about you: Pulse Respiration Blood pressure 94/minute 16/minute 112/78 Lorenza Vo APRN.CNP 10/28/2023 4:57 PM Signed This is a 73 year old female who presents today with: Patient presents with: Recheck: 1 month follow up HISTORY OF PRESENT ILLNESS: Emily Lopez is a 73 year old female. Patient presents with: Recheck: 1 month follow up Pt presents today to follow-up on blood pressure. She was having trouble with dizziness. At last visit we decreased lisinopril to 30 mg. She refers that she is having less dizziness. She reports that the dizziness is improved. She is unsure though if she is taking 20 or 30 mg for certain. 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 She has additional testing later this week and has follow-up next week. PAST MEDICAL HISTORY: PAST MEDICAL HISTORY No date: COPD (chronic obstructive pulmonary disease) (HCC) 01/15/2012: HTN (hypertension) No date: Hyperlipidemia No date: Macular degeneration No date: Meniere's disease PAST SURGICAL HISTORY No date: APPENDECTOMY No date: CHOLECYSTECTOMY 08/27/2021: COLONOSCOPY Comment: repeat in 5 years 12/04/2016: COLONOSCOPY FLX DX W/COLLJ SPEC WHEN PFRMD Comment: Colonoscopy - regular villous adenoma recommended 3 year follow-up No date: PAST SURGICAL HISTORY OF Comment: exploratory lap for endometriosis 1997: SURGERY (GENERAL SURGERY) CONSULT Comment: LEFT ARM SURGERY No date: TONSILLECTOMY HX No date: TOTAL ABDOM HYSTERECTOMY Comment: age 42 ALLERGIES Tetanus Vaccines And Toxoid, Codeine, Penicillins, Seasonal Allergies, and Sulfa (Sulfonamide Antibiotics) MEDICATIONS Current Outpatient Medications Medication Sig apixaban (ELIQUIS ORAL) Take by mouth. lisinopril (ZESTRIL) 30 mg tablet Take 1 tablet by mouth once daily. (Patient taking differently: Take 30 mg by mouth once daily. Taking 20mg) metFORMIN (GLUCOPHAGE) 500 mg tablet Take 1 tablet by mouth daily with breakfast. semaglutide (RYBELSUS) 3 mg tablet Take 1 tablet by mouth daily before breakfast. Take 30 minutes before the first food, beverage, or other oral medications of the day with no more than 4 ounces of plain water (Patient not taking: Reported on 10/03/2023) ergocalciferol 50,000 unit capsule (VITAMIN D2, DRISDOL) Take 1 capsule by mouth one time a week. albuterol HFA (PROAIR HFA) 90 mcg/actuation inhaler Inhale 2 Puffs as instructed every 4 hours as needed. fluticasone-umeclidin -vilanter (TRELEGY ELLIPTA) 100-62.5-25 mcg inhalation powder Inhale 1 Puff as instructed once daily. azithromycin (ZITHROMAX) 250 mg tablet Take 2 tablets on Day 1, then 1 tablet daily x 4 days. (Patient not taking: Reported on 09/29/2023) atorvastatin (LIPITOR) 80 mg tablet Take 1 tablet by mouth once daily. metoprolol succinate ER (TOPROL XL) 25 mg 24 hr tablet Take 1 tablet by mouth once daily. amLODIPine (NORVASC) 10 mg tablet Take 1 tablet by mouth once daily. Lancets lancets Test blood sugar(s) 1 times daily. Dx: Type 2 DM - Controlled E11.9 Insulin: No (Patient not taking: Reported on 10/03/2023) blood sugar diagnostic (BLOOD GLUCOSE TEST) test strip Test blood sugar(s) 1 times daily. Dx: Type 2 DM - Controlled E11.9 Insulin: Yes (Patient not taking: Reported on 10/03/2023) vit A,C,X-Gifj-Vmcvur (PRESERVISION AREDS) 7,160-113-100 lqru-os-ucmt tab Take 2 tablets by mouth. aspirin, enteric coated (ASPIRIN LOW DOSE) 81 mg EC tablet Take 1 tablet by mouth once daily. No current facility-administered medications for this visit. FAMILY HISTORY Problem Relation Age of Onset Diabetes Mother Thyroid Mother Diabetes Father COPD Father smoker Diabetes Sister Bipolar disorder Sister Bipolar disorder Daughter other (10 grandchildren) Grandchild Cancer No Family History Social History Tobacco Use Smoking status: Former Current packs/day: 0.00 Average packs/day: 0.8 packs/day for 40.8 years (30.6 ttl pk-yrs) Types: Cigarettes Start date: 02/17/1970 Quit date: 11/26/2010 Years since quittin.9 Smokeless tobacco: Never Vaping Use Vaping status: Never Used Substance Use Topics Alcohol use: Yes Comment: 2 galsses of wine 1-2 times per week Drug use: No EXAM: BP 112/78 Pulse 94 Resp 16 SpO2 97% PHYSICAL EXAM: General Appearance: Well appearing, alert, in no acute distress, well-hydrated, well nourished.. Skin: Skin color, texture, turgor normal, no suspicious rashes or lesions. Head: Normocephalic, no masses, lesions, tenderness or abnormalities. Eyes: Anicteric sclera. Extraocular movements are intact. . Lungs: Lungs clear to auscultation. No wheezing, rhonchi, rales.. Heart: RRR without murmur, ga (more content not included)... [facility] ([id number]) 1950 F Date Time Provider Department 10/28/23 LORENZA VO During your visit today, we recorded the following information about you: Karlene Tarango LPN 10/28/2023 4:44 PM Signed Patient calling said she had appt with Lorenza Vo today and was to call back with what dose her Lisinopril is and patient said 30 mg and she takes it once daily. Lorenza Vo APRN.CNP 10/28/2023 4:51 PM Signed Sounds good. I updated her medication list and sent a new script to the pharmacy. Can please let patient know. ISA Mota Amanda, RN 10/28/2023 4:54 PM Signed Pts son called and is notified of providers message. He voices understanding. Gris Guzman RN Allergies As of Date: 10/28/2023 Noted Allergy Reaction TETANUS VACCINES AND TOXOID 12/26/2011 10 - Anaphylaxis CODEINE 07/03/2012 14 - Other: See Comments Comments: Patient states it feels like bugs are crawling on her PENICILLINS 12/26/2011 2 - Rash SEASONAL ALLERGIES 12/27/2011 14 - Other: See Comments SULFA (SULFONAMIDE ANTIBIOTICS) 12/26/2011 2 - Rash Date Reviewed: 10/28/2023 Reviewed by: Gil Garnica LPN - Fully Assessed Reason for Visit: medication information [Other] Prescriptions as of 10/28/2023 - lisinopril (ZESTRIL) 30 mg tablet Take 1 tablet by mouth once daily. - apixaban (ELIQUIS ORAL) Take by mouth. - metFORMIN (GLUCOPHAGE) 500 mg tablet Take 1 tablet by mouth daily with breakfast. - semaglutide (RYBELSUS) 3 mg tablet Take 1 tablet by mouth daily before breakfast. Take 30 minutes before the first food, beverage, or other oral medications of the day with no more than 4 ounces of plain water - ergocalciferol 50,000 unit capsule (VITAMIN D2, DRISDOL) Take 1 capsule by mouth one time a week. - albuterol HFA (PROAIR HFA) 90 mcg/actuation inhaler Inhale 2 Puffs as instructed every 4 hours as needed. - fluticasone-umeclidin -vilanter (TRELEGY ELLIPTA) 100-62.5-25 mcg inhalation powder Inhale 1 Puff as instructed once daily. - atorvastatin (LIPITOR) 80 mg tablet Take 1 tablet by mouth once daily. - metoprolol succinate ER (TOPROL XL) 25 mg 24 hr tablet Take 1 tablet by mouth once daily. - amLODIPine (NORVASC) 10 mg tablet Take 1 tablet by mouth once daily. - Lancets lancets Test blood sugar(s) 1 times daily. Dx: Type 2 DM - Controlled E11.9 Insulin: No - blood sugar diagnostic (BLOOD GLUCOSE TEST) test strip Test blood sugar(s) 1 times daily. Dx: Type 2 DM - Controlled E11.9 Insulin: Yes - vit A,C,Q-Augj-Pugfom (PRESERVISION AREDS) 7,160-113-100 jboy-gl-colw tab Take 2 tablets by mouth. - aspirin, enteric coated (ASPIRIN LOW DOSE) 81 mg EC tablet Take 1 tablet by mouth once daily. Problem List As Of Date 10/28/2023 Noted Resolved Hyperlipidemia [E78.5] HTN (hypertension) [I10] 01/15/2012 Fracture of proximal humerus [S42.209A] 03/24/2014 02/19/2018 Other emphysema (HCC) [J43.8] 12/09/2014 07/20/2020 Osteopenia [M85.80] 09/21/2015 History of colonic polyps [Z86.010] 11/07/2016 Lung nodule [R91.1] 03/09/2020 COPD with chronic bronchitis (HCC) [J44.89] 07/20/2020 Type 2 diabetes mellitus without complication, *01/16/2021 Coronary artery calcification [I25.10] 06/25/2021 Obesity, Class I, BMI 30-34.9 [E66.9] 11/29/2021 Fatty liver [K76.0] 02/25/2023 Atrial fibrillation with RVR (HCC) [I48.91] 02/25/2023 Obesity, Class II, BMI 35-39.9 [E66.9] 10/03/2023 Paroxysmal atrial fibrillation (HCC) [I48.0] 10/03/2023 On apixaban therapy [Z79.01] 10/03/2023 Encounter Status:Closed by GRIS GUZMAN on 10/28/23 [facility] Suzie 10-03-2023 URIEL Office Visit (STACIE ) EMILY LOPEZ ([id number]) 1950 F Date Time Provider Department 10/03/23 2:40 PM BRITTON GANNON During your visit today, we recorded the following information about you: Pulse Blood pressure Weight Height 108/minute 110/72 87.4 kg 1.549 m Britton Gannon DO 10/03/2023 4:58 PM [facility] SECTION OF [facility] OUTPATIENT VISIT DATE October 03, 2023 PRIMARY CARE PHYSICIAN: Rober Rubio [address] [place] [address] HISTORY OF PRESENT ILLNESS: Ms. Lopez is a 73 year old female. The patient presents due to history of coronary artery calcification as well as paroxysmal atrial fibrillation, hypertension, hyperlipidemia and long-term oral anticoagulation with Eliquis. She denies chest discomfort, dyspnea, orthopnea, paroxysmal nocturnal dyspnea, palpitations, near-syncope or syncope. She denies GI/ bleeding or melena. Her atrial fibrillation was apparently situational. Documentation is through that of an echocardiogram. PLAN AND RECOMMENDATIONS: The patient overall appears stable without apparent symptoms of angina, cardiac decompensation or paroxysms of atrial fibrillation. Heart rate, blood pressure and recent cholesterol profile are favorable so that we have made no additions or changes. Dietary and lifestyle modification was reemphasized to facilitate risk factor reduction and heart failure prevention. We will look forward to reevaluating her in 6 months time. Vitals: BP 110/72 Pulse 108 Ht 154.9 cm (5' 1) Wt 87.4 kg (192 lb 10.9 oz) SpO2 92% BMI 36.41 kg/m? Physical Exam Vitals reviewed. Constitutional: General: She is not in acute distress. Appearance: Normal appearance. She is well-developed. HENT: Head: Normocephalic and atraumatic. Nose: Nose normal. Eyes: General: No scleral icterus. Right eye: No discharge. Left eye: No discharge. Pupils: Pupils are equal, round, and reactive to light. Neck: Thyroid: No thyromegaly. Vascular: No carotid bruit or JVD. Cardiovascular: Rate and Rhythm: Normal rate and regular rhythm. Heart sounds: Normal heart sounds. No murmur heard. No friction rub. No gallop. Pulmonary: Effort: Pulmonary effort is normal. No respiratory distress. Breath sounds: Normal breath sounds. No wheezing or rales. Abdominal: General: Bowel sounds are normal. Palpations: Abdomen is soft. Musculoskeletal: General: Normal range of motion. Cervical back: Normal range of motion and neck supple. Skin: General: Skin is warm and dry. Capillary Refill: Capillary refill takes less than 2 seconds. Coloration: Skin is not pale. Neurological: Mental Status: She is alert and oriented to person, place, and time. Cranial Nerves: No cranial nerve deficit. Psychiatric: Behavior: Behavior normal. Thought Content: Thought content normal. Judgment: Judgment normal. Review of Systems Constitutional: Negative for activity change and fatigue. HENT: Negative for ear pain and facial swelling. Eyes: Negative for pain and discharge. Respiratory: Negative for chest tightness and shortness of breath. Cardiovascular: Negative for chest pain, palpitations and leg swelling. Gastrointestinal: Negative for abdominal pain, blood in stool, nausea and vomiting. Endocrine: Negative for cold intolerance and heat intolerance. Genitourinary: Negative for frequency and hematuria. Musculoskeletal: Negative for arthralgias and gait problem. Skin: Negative for color change, pallor and rash. Allergic/Immunologic: Negative for immunocompromised state. Neurological: Negative for dizziness, syncope, light-headedness and headaches. Hematological: Negative for adenopathy. Does not bruise/bleed easily. Psychiatric/Behaviora l: Negative for confusion. The patient is not nervous/anxious. PAST MEDICAL HISTORY No date: COPD (chronic obstructive pulmonary disease) (HCC) 01/15/2012: HTN (hypertension) No date: Hyperlipidemia No date: Macular degeneration No date: Meniere's disease PAST SURGICAL HISTORY No date: APPENDECTOMY No date: CHOLECYSTECTOMY 08/27/2021: COLONOSCOPY Comment: repeat in 5 years 12/04/2016: COLONOSCOPY FLX DX W/COLLJ SPEC WHEN PFRMD Comment: Colonoscopy - regular villous adenoma recommended 3 year follow-up No date: PAST SURGICAL HISTORY OF Comment: exploratory lap for endometriosis 1997: SURGERY (GENERAL SURGERY) CONSULT Comment: LEFT ARM SURGERY No date: TONSILLECTOMY HX No date: TOTAL ABDOM HYSTERECTOMY Comment: age 42 Social History Tobacco Use Smoking status: Former Packs/day: 0.75 Years: 40.00 Additional pack years: 0.00 Total pack years: 30.00 Types: Cigarettes Start date: 02/17/1970 Quit date: 11/26/2010 Years since quittin.8 Smokeless tobacco: (more content not included)... Normal [facility] CNOVon 09-29-2023 CNOV Office Visit (VASSMD ) EMILY LOPEZ ([id number]) 1950 F Date Time Provider Department 09/29/23 12:30 PM EMILY ADAMS During your visit today, we recorded the following information about you: Pulse Blood pressure 88/minute 131/67 Emily Adams, DO 09/29/2023 4:15 PM Signed [facility] [place] DEPARTMENT OF VASCULAR SURGERY OUTPATIENT VISIT DATE September 29, 2023 OUTPATIENT VISIT TYPE CONSULTATION SERVICE DATE: 09/29/2023 SERVICE TIME: 12:24 PM PRIMARY CARE PHYSICIAN: Rober Rubio MD REFERRING PROVIDER: Rober Rubio [id number] [facility] [id number] Consult requested for an opinion regarding the evaluation and treatment of the above. My final impression and recommendations will be communicated back to the requesting physician by way of the shared medical record or letter via US mail. CHIEF COMPLAINT: Blood pressure difference in arms HISTORY OF PRESENT ILLNESS: Vascular consultation at the request of Dr. Rober Rubio. A copy of this consultation note will be provided to the requesting physician by way of shared Medical record or letter to requesting physician via US mail. Ms. Lopez is a 73 year old female who is seen today for left subclavian artery blockage. She found to have difference in blood pressures. She does admit to left ring and 5th finger numbness. She had a remote surgery 30 years ago for numbness in left upper extremities and the symptoms improved after nerve surgery. She is a former smoker. She is diabetic. She was recently diagnosed with atrial fibrillation and is on eliquis. She is right handed. She does admit to dizziness which was improved with adjustment in her lisinopril. PAST MEDICAL HISTORY No date: COPD (chronic obstructive pulmonary disease) (HCC) 01/15/2012: HTN (hypertension) No date: Hyperlipidemia No date: Macular degeneration No date: Meniere's disease PAST SURGICAL HISTORY No date: APPENDECTOMY No date: CHOLECYSTECTOMY 08/27/2021: COLONOSCOPY Comment: repeat in 5 years 12/04/2016: COLONOSCOPY FLX DX W/COLLJ SPEC WHEN PFRMD Comment: Colonoscopy - regular villous adenoma recommended 3 year follow-up No date: PAST SURGICAL HISTORY OF Comment: exploratory lap for endometriosis 1998: SURGERY (GENERAL SURGERY) CONSULT Comment: LEFT ARM SURGERY No date: TONSILLECTOMY HX No date: TOTAL ABDOM HYSTERECTOMY Comment: age 42 SOCIAL HISTORY: Social History Tobacco Use Smoking status: Former Packs/day: 0.75 Years: 40.00 Additional pack years: 0.00 Total pack years: 30.00 Types: Cigarettes Start date: 02/17/1970 Quit date: 11/26/2010 Years since quittin.8 Smokeless tobacco: Never Vaping Use Vaping Use: Never used Substance Use Topics Alcohol use: Yes Comment: 2 galsses of wine 1-2 times per week Drug use: No FAMILY HISTORY Problem Relation Age of Onset Diabetes Mother Thyroid Mother Diabetes Father COPD Father smoker Diabetes Sister Bipolar disorder Sister Bipolar disorder Daughter other (10 grandchildren) Grandchild Cancer No Family History MEDICATIONS: lisinopril (ZESTRIL) 30 mg tablet Take 1 tablet by mouth once daily. metFORMIN (GLUCOPHAGE) 500 mg tablet Take 1 tablet by mouth daily with breakfast. semaglutide (RYBELSUS) 3 mg tablet Take 1 tablet by mouth daily before breakfast. Take 30 minutes before the first food, beverage, or other oral medications of the day with no more than 4 ounces of plain water ergocalciferol 50,000 unit capsule (VITAMIN D2, DRISDOL) Take 1 capsule by mouth one time a week. albuterol HFA (PROAIR HFA) 90 mcg/actuation inhaler Inhale 2 Puffs as instructed every 4 hours as needed. fluticasone-umeclidin -vilanter (TRELEGY ELLIPTA) 100-62.5-25 mcg inhalation powder Inhale 1 Puff as instructed once daily. azithromycin (ZITHROMAX) 250 mg tablet Take 2 tablets on Day 1, then 1 tablet daily x 4 days. atorvastatin (LIPITOR) 80 mg tablet Take 1 tablet by mouth once daily. metoprolol succinate ER (TOPROL XL) 25 mg 24 hr tablet Take 1 tablet by mouth once daily. amLODIPine (NORVASC) 10 mg tablet Take 1 tablet by mouth once daily. Lancets lancets Test blood sugar(s) 1 times daily. Dx: Type 2 DM - Controlled E11.9 Insulin: No blood sugar diagnostic (BLOOD GLUCOSE TEST) test strip Test blood sugar(s) 1 times daily. Dx: Type 2 DM - Controlled E11.9 Insulin: Yes vit A,C,I-Mzym-Kxxjoa (PRESERVISION AREDS) 7,160-113-100 degp-gx-mqvw tab Take by mouth. aspirin, enteric coated (ASPIRIN LOW DOSE) 81 mg EC tablet Take 1 tablet by mouth once daily. ALLERGIES: ALLERGIES Allergen Reactions Tetanus Vaccines An* Anaphylaxis Codeine Other: See Comments Patient states it feels like bugs are crawling on her Penicillins Rash Seasonal Allergies Other: See Comments Sulfa (Sulfonamide * Rash REVIEW of SYSTEM: Constitutional (more content not included)... Normal [facility] CNOVon 09-24-2023 CNOV Office Visit (FAMPWS ) EMILY LOPEZ ([id number]) 1950 F Date Time Provider Department 09/24/23 1:00 [facility] During your visit today, we recorded the following information about you: Pulse Respiration Blood pressure 78/minute 16/minute 132/70 Lorenza Vo APRN.CNP 09/24/2023 5:35 PM Signed This is a 73 year old female who presents today with: Patient presents with: Recheck: 1 month follow up HISTORY OF PRESENT ILLNESS: Emily Lopez is a 73 year old female. Patient presents with: Recheck: 1 month follow up We tried to change her blood pressure medication regimen so that she was not taking all of her medications at the same time. We changed the lisinopril to the evening. She reports no change in her symptoms. Describes dizziness as a sensation of movement in her head. Feels lightheaded. Nothing actually spinning. Refers that if she gets up slower and moves slower, it isn't as bad. Refers that if she has to move quickly, then symptoms are worse. She does have an upcoming appoint with vascular due to recent ultrasound findings and blood pressure variation between arms. PAST MEDICAL HISTORY: PAST MEDICAL HISTORY No date: COPD (chronic obstructive pulmonary disease) (HCC) 01/15/2012: HTN (hypertension) No date: Hyperlipidemia No date: Macular degeneration No date: Meniere's disease PAST SURGICAL HISTORY No date: APPENDECTOMY No date: CHOLECYSTECTOMY 08/27/2021: COLONOSCOPY Comment: repeat in 5 years 12/04/2016: COLONOSCOPY FLX DX W/COLLJ SPEC WHEN PFRMD Comment: Colonoscopy - regular villous adenoma recommended 3 year follow-up No date: PAST SURGICAL HISTORY OF Comment: exploratory lap for endometriosis 1997: SURGERY (GENERAL SURGERY) CONSULT Comment: LEFT ARM SURGERY No date: TONSILLECTOMY HX No date: TOTAL ABDOM HYSTERECTOMY Comment: age 42 ALLERGIES Tetanus Vaccines And Toxoid, Codeine, Penicillins, Seasonal Allergies, and Sulfa (Sulfonamide Antibiotics) MEDICATIONS Current Outpatient Medications Medication Sig metFORMIN (GLUCOPHAGE) 500 mg tablet Take 1 tablet by mouth daily with breakfast. semaglutide (RYBELSUS) 3 mg tablet Take 1 tablet by mouth daily before breakfast. Take 30 minutes before the first food, beverage, or other oral medications of the day with no more than 4 ounces of plain water ergocalciferol 50,000 unit capsule (VITAMIN D2, DRISDOL) Take 1 capsule by mouth one time a week. albuterol HFA (PROAIR HFA) 90 mcg/actuation inhaler Inhale 2 Puffs as instructed every 4 hours as needed. fluticasone-umeclidin -vilanter (TRELEGY ELLIPTA) 100-62.5-25 mcg inhalation powder Inhale 1 Puff as instructed once daily. azithromycin (ZITHROMAX) 250 mg tablet Take 2 tablets on Day 1, then 1 tablet daily x 4 days. atorvastatin (LIPITOR) 80 mg tablet Take 1 tablet by mouth once daily. metoprolol succinate ER (TOPROL XL) 25 mg 24 hr tablet Take 1 tablet by mouth once daily. amLODIPine (NORVASC) 10 mg tablet Take 1 tablet by mouth once daily. lisinopril (ZESTRIL) 40 mg tablet Take 1 tablet by mouth once daily. Lancets lancets Test blood sugar(s) 1 times daily. Dx: Type 2 DM - Controlled E11.9 Insulin: No blood sugar diagnostic (BLOOD GLUCOSE TEST) test strip Test blood sugar(s) 1 times daily. Dx: Type 2 DM - Controlled E11.9 Insulin: Yes vit A,C,H-Kjjm-Hacgof (PRESERVISION AREDS) 7,160-113-100 ltvc-mz-tkap tab Take by mouth. aspirin, enteric coated (ASPIRIN LOW DOSE) 81 mg EC tablet Take 1 tablet by mouth once daily. No current facility-administered medications for this visit. FAMILY HISTORY Problem Relation Age of Onset Diabetes Mother Thyroid Mother Diabetes Father COPD Father smoker Diabetes Sister Bipolar disorder Sister Bipolar disorder Daughter other (10 grandchildren) Grandchild Cancer No Family History Social History Tobacco Use Smoking status: Former Packs/day: 0.75 Years: 40.00 Additional pack years: 0.00 Total pack years: 30.00 Types: Cigarettes Start date: 02/17/1970 Quit date: 11/26/2010 Years since quittin.8 Smokeless tobacco: Never Vaping Use Vaping Use: Never used Substance Use Topics Alcohol use: Yes Comment: 2 galsses of wine 1-2 times per week Drug use: No EXAM: BP 132/70 Pulse 78 Resp 16 SpO2 91% PHYSICAL EXAM: General Appearance: Well appearing, alert, in no acute distress, well-hydrated, well nourished.. Skin: Skin color, texture, turgor normal, no suspicious rashes or lesions. Head: Normocephalic, no masses, lesions, tenderness or abnormalities. Eyes: Anicteric sclera. Extraocular movements are intact. . Lungs: Lungs clear to auscultation. No wheezing, rhonchi, rales.. Heart: RRR without murmur, gallop, or rubs. No ectopy. Neurologic: Gait normal. ASSESSMENT/PLAN: 1. Postural dizziness - ICD9: 780.4, ICD10: R42 (primary diagnosis) Will (more content not included)... [facility] ([id number]) 1950 F Date Time Provider Department 09/18/23 ROBER RUBIOWS During your visit today, we recorded the following information about you: Rober Rubio MD 09/18/2023 10:39 AM Signed Arterial studies are showing some differences in blood flow comparing one arm to the other. Refer to vascular surgery. Ana Rosa Saenz MA 09/18/2023 11:15 AM Signed Patient informed and verbalized understanding. Ana Rosa Saenz MA Allergies As of Date: 09/18/2023 Noted Allergy Reaction TETANUS VACCINES AND TOXOID 12/26/2011 10 - Anaphylaxis CODEINE 07/03/2012 14 - Other: See Comments Comments: Patient states it feels like bugs are crawling on her PENICILLINS 12/26/2011 2 - Rash SEASONAL ALLERGIES 12/27/2011 14 - Other: See Comments SULFA (SULFONAMIDE ANTIBIOTICS) 12/26/2011 2 - Rash Date Reviewed: 07/23/2023 Reviewed by: Martin Benites APRN.DRYING TUNNEL OPERATOR - Fully Assessed Reason for Visit: Results [95] Primary Visit Diagnosis:PVD (peripheral vascular disease) ([facility]) [I73.9] Order(s):CONSULT TO VASCULAR SURGERY [9042] Order #: [id number]: 1 FUTURE Prescriptions as of 09/23/2023 - metFORMIN (GLUCOPHAGE) 500 mg tablet Take 1 tablet by mouth daily with breakfast. - semaglutide (RYBELSUS) 3 mg tablet Take 1 tablet by mouth daily before breakfast. Take 30 minutes before the first food, beverage, or other oral medications of the day with no more than 4 ounces of plain water - ergocalciferol 50,000 unit capsule (VITAMIN D2, DRISDOL) Take 1 capsule by mouth one time a week. - albuterol HFA (PROAIR HFA) 90 mcg/actuation inhaler Inhale 2 Puffs as instructed every 4 hours as needed. - fluticasone-umeclidin -vilanter (TRELEGY ELLIPTA) 100-62.5-25 mcg inhalation powder Inhale 1 Puff as instructed once daily. - azithromycin (ZITHROMAX) 250 mg tablet Take 2 tablets on Day 1, then 1 tablet daily x 4 days. - atorvastatin (LIPITOR) 80 mg tablet Take 1 tablet by mouth once daily. - metoprolol succinate ER (TOPROL XL) 25 mg 24 hr tablet Take 1 tablet by mouth once daily. - amLODIPine (NORVASC) 10 mg tablet Take 1 tablet by mouth once daily. - lisinopril (ZESTRIL) 40 mg tablet Take 1 tablet by mouth once daily. - Lancets lancets Test blood sugar(s) 1 times daily. Dx: Type 2 DM - Controlled E11.9 Insulin: No - blood sugar diagnostic (BLOOD GLUCOSE TEST) test strip Test blood sugar(s) 1 times daily. Dx: Type 2 DM - Controlled E11.9 Insulin: Yes - vit A,C,S-Fdis-Kebdst (PRESERVISION AREDS) 7,160-113-100 rujv-ib-xzvo tab Take by mouth. - aspirin, enteric coated (ASPIRIN LOW DOSE) 81 mg EC tablet Take 1 tablet by mouth once daily. Problem List As Of Date 09/18/2023 Noted Resolved Hyperlipidemia [E78.5] HTN (hypertension) [I10] 01/15/2012 Fracture of proximal humerus [S42.209A] 03/24/2014 02/19/2018 Other emphysema (HCC) [J43.8] 12/09/2014 07/20/2020 Osteopenia [M85.80] 09/21/2015 History of colonic polyps [Z86.010] 11/07/2016 Lung nodule [R91.1] 03/09/2020 COPD with chronic bronchitis (HCC) [J44.89] 07/20/2020 Type 2 diabetes mellitus without complication, *01/16/2021 Coronary artery calcification [I25.10] 06/25/2021 Obesity, Class I, BMI 30-34.9 [E66.9] 11/29/2021 Fatty liver [K76.0] 02/25/2023 Atrial fibrillation with RVR (HCC) [I48.91] 02/25/2023 Encounter Status:Closed by ROBER RUBIO on 09/23/23 [facility] ARM ARTERIAL [facility] n 09-17-2023 ARM ARTERIAL [facility] Non-Invasive Vascular [facility] Upper Extremity Arterial Duplex Bilateral/Complete Date of service/time: 09/17/2023 12:27:05 PM Name: MRS. EMILY LOPEZ Date of : 1950 Age: 73 years Gender: F Clinical Indication Blood pressure difference between arms. TECHNIQUE -------- An arterial duplex ultrasound examination was performed, including grayscale imaging and color Doppler and spectral Doppler examination of the below mentioned arteries. FINDINGS -------- Right systolic blood pressure: 128 mmHg Left systolic blood pressure: 80 mmHg RIGHT SIDE Innominate artery distal: PSV: 367 cm/s. EDV: 0 cm/s. Spectral broadening. Subclavian artery origin: PSV: 215 cm/s. EDV: 0 cm/s. Spectral broadening. Subclavian artery proximal: PSV: 172 cm/s. EDV: 0 cm/s. Multiphasic waveform. Subclavian artery mid: PSV: 154 cm/s. EDV: 0 cm/s. Multiphasic waveform. Subclavian artery distal: PSV: 100 cm/s. EDV: 0 cm/s. Multiphasic waveform. Axillary artery proximal: PSV: 113 cm/s. EDV: 0 cm/s. Multiphasic waveform. Axillary artery mid: PSV: 99 cm/s. EDV: 0 cm/s. Multiphasic waveform. Axillary artery distal: PSV: 96 cm/s. EDV: 0 cm/s. Multiphasic waveform. Brachial artery proximal: PSV: 125 cm/s. EDV: 0 cm/s. Multiphasic waveform. Brachial artery mid: PSV: 122 cm/s. EDV: 0 cm/s. Multiphasic waveform. Brachial artery distal: PSV: 108 cm/s. EDV: 0 cm/s. Multiphasic waveform. Radial artery proximal: PSV: 106 cm/s. EDV: 9 cm/s. Multiphasic waveform. Radial artery mid: PSV: 100 cm/s. EDV: 0 cm/s. Multiphasic waveform. Radial artery distal: PSV: 102 cm/s. EDV: 12 cm/s. Multiphasic waveform. Ulnar artery proximal: PSV: 90 cm/s. EDV: 12 cm/s. Multiphasic waveform. Ulnar artery mid: PSV: 97 cm/s. EDV: 12 cm/s. Multiphasic waveform. Ulnar artery distal: PSV: 116 cm/s. EDV: 15 cm/s. Multiphasic waveform. VESSEL/GRAFT Common carotid artery origin: PSV: 155 cm/s. EDV: 19 cm/s. LEFT SIDE Subclavian artery proximal: PSV: 115 cm/s. EDV: 0 cm/s. Spectral broadening. Subclavian artery mid: PSV: 81 cm/s. EDV: 0 cm/s. Monophasic, high resistive waveform. Subclavian artery distal: PSV: 54 cm/s. EDV: 0 cm/s. Monophasic, high resistive waveform. Axillary artery proximal: PSV: 68 cm/s. EDV: 0 cm/s. Monophasic, high resistive waveform. Axillary artery mid: PSV: 65 cm/s. EDV: 0 cm/s. Monophasic, high resistive waveform. Axillary artery distal: PSV: 62 cm/s. EDV: 0 cm/s. Monophasic, high resistive waveform. Brachial artery proximal: PSV: 57 cm/s. EDV: 0 cm/s. Monophasic, high resistive waveform. Brachial artery mid: PSV: 65 cm/s. EDV: 9 cm/s. Monophasic, intermediate resistive waveform. Brachial artery distal: PSV: 42 cm/s. EDV: 7 cm/s. Monophasic, high resistive waveform. Radial artery proximal: PSV: 50 cm/s. EDV: 13 cm/s. Monophasic, intermediate resistive waveform. Radial artery mid: PSV: 43 cm/s. EDV: 11 cm/s. Monophasic, intermediate resistive waveform. Radial artery distal: PSV: 38 cm/s. EDV: 8 cm/s. Monophasic, intermediate resistive waveform. Ulnar artery proximal: PSV: 45 cm/s. EDV: 7 cm/s. Monophasic, intermediate resistive waveform. Ulnar artery mid: PSV: 52 cm/s. EDV: 0 cm/s. Monophasic, high resistive waveform. Ulnar artery distal: PSV: 55 cm/s. EDV: 15 cm/s. Monophasic, intermediate resistive waveform. IMPRESSION Left brachial blood pressure lower than right, suggest further evaluation to exclude subclavian or axillary disease. RIGHT SIDE Innominate artery distal: 50-99% stenosis . Elevated velcoties, plaque and turbulent flow noted. Subclavian artery : plaque noted without evidence of hemodynamically significant stenosis . An area of mobile plaque visualizd at origin. Axillary artery : plaque noted without evidence of hemodynamically significant stenosis . Brachial artery, Radial artery and Ulnar artery : patent . LEFT SIDE Subclavian artery : plaque noted. Turbulent flow noted at proximal vessel and monophasic flow noted throughout remainder of arteries suggestive of a more proximal stenosis. May wish other means of evaluation. Axillary artery : plaque noted without evidence of hemodynamically significant stenosis . Brachial artery, Radial artery and Ulnar artery : patent . Technologist: Boroke Del Rosario RVT, RDNM Ordering physician: LORENZA VO Interpreting physician: LATRICE Alegria DO Final CC [employer] [facility] Image : [id number] micsSISUID See Link below for Image Normal [facility] CT LUNG SCREEN WO IVCONon CT LUNG SCREEN WO IVCON * * *Final Repor t* * * * * * SEE BOTTOM OF REPORT FOR ADDENDED TEXT * * * DATE OF EXAM: Jul 23 2023 12:56PM [facility] [place] LUNG SCREEN WO IVCON / PROCEDURE REASON: Z87.891-Personal history of tobacco use, presenting hazards to health * * * * Physician Interpretation * * * * * * * * * * * * ORIGINAL REPORT * * * * * * * * EXAMINATION: CHEST CT WITHOUT CONTRAST (LOW-DOSE CT LUNG CANCER SCREENING PROTOCOL) CLINICAL HISTORY: Lung cancer LDCT screening ? absence of signs or symptoms of lung cancer. Personal history of nicotine dependence. Subsequent (annual) Technique: Spiral CT acquisition of the chest from the thoracic inlet to the upper abdomen without contrast. MQ: CTLCS_6 Patient characteristics: * Inyq-zm-Kcjsy: 1950; Age at exam: 72 years * Gender: Female * Lung Disease: Asymptomatic (no signs or symptoms of lung disease) * Number of Pack Years: 30 * Current smoker (=0) or Number of Years since Quit: 12 * Ordering provider and NPI: GRIS ROSARIO [id number] * Interpreting radiologist and NPI: Tram [id number] Exam acquisition parameters: * Exam Date: 07/23/2023 12:56 PM * Site: [facility] * * CT System Physical Security Specialist: Sano * CT System Model: Bacterioscan * Tube Current-Time (mA-sec): 60 * Peak Voltage (kV): 120V * Scan Time (sec): 4.45 * Scan Volume (z-length, cm): 30.40 * Pitch: 0.984 * Slice Thickness (mm): 1.25 * CT Dose-Length Product: 90.13 mGy*cm * CT Dose Index: 2.65mGy * CT Dose Reduction Method: Automated exposure control(AEC) and iterative recon COMPARISON: Low-dose CT lung screen, 12/20/2021 RESULT: Are nodules present? Yes, 1-5 nodules If No, go to IMPRESSION. If yes, proceed with characterization of the FIVE largest nodules. Nodule 1: This Solid nodule is located in the Right Lower Lobe on slice number 196 with an average diameter of 4.9 mm (5.4 mm x 4.3 mm). stable Nodule 2: This Solid nodule is located in the Left Lower Lobe on slice number 234 with an average diameter of 4.2 mm (4.8 mm x 3.6 mm). Nodule 3: This Solid nodule is located in the Left Upper Lobe on slice number 159 with an average diameter of 4.0 mm (4.3 mm x 3.6 mm). Nodule 4: This Solid nodule is located in the Left Lower Lobe on slice number 236 with an average diameter of 3.5 mm (4.3 mm x 2.6 mm). If this is an ANNUAL LDCT for LCS, please ensure nodule number is the same as in the prior evaluation. Other lung nodule comments: None Other findings: Diffuse bronchial wall thickening in both lungs compatible with chronic nonspecific airway inflammation. Subsegmental atelectasis in the middle lobe associated with luminal effacement of small subsegmental bronchi. Additional mild atelectasis in the inferior lingula. There are nonspecific post infectious/post inflammatory groundglass opacities with subtle reticular changes in the bilateral lower lobes. Minimal layering secretions within the trachea. Trivial centrilobular emphysema with upper lobe predominance. Minimal aortic valve calcifications. Moderate atherosclerotic calcifications in the thoracic and upper abdominal aorta. Severe calcifications of the ostial portions of the left subclavian artery. Moderate multivessel coronary artery calcifications. Mitral annular calcifications. Prominent epicardial fat pad in the right and left anterior cardiophrenic recess. Degenerative changes in the right shoulder joint (likely associated with a remote fracture of the proximal right humerus/humeral head). Degenerative changes in the thoracic spine. Emphysema: Trivial (<5%), Centrilobular, Upper lobe Coronary Artery Calcifications: Circumflex Mild; Left Anterior Descending Moderate; Right Coronary Moderate Localizer images: No additional findings. IMPRESSION: LungRADS category: 2 S LungRADS modifier: Significant other (S), coronary artery calcification, moderate or severe LungRADS 0 reason: n/a Recommendations: Continue annual screening with LDCT in 12 months. Other actionable findings: Reference: [employer]. Lung CT Screening Reporting and Data System (Lung-RADS). Available at: http://www.acr.org/Qu ality-Safety/Resource s/LungRADS * * * * * * * * ADDENDUM #1 * * * * * * * * Upon further review, there is a part solid nodule in the right upper lobe which measures approximately 9 x 5 mm (image 90). A dilated airway is noted to course posteriorly (images [id number]). Based on this finding, the lung RADS category as been revised to 3. IMPRESSION: LungRADS category: 3 S LungRADS modifier: Significant other (S), coronary artery calcification, moderate or severe LungRADS 0 reason: n/a Recommendations: Followup LDCT in 6 months The summary of revision and the addendum will be communicated with ordering provider Martin Benites. Film Casting Operator: PSCB (more content not included)... Normal [facility] THYROID STIMULATING HORMONEo n 07-17-2023 TSH Qn 1.390 m[IU]/L [facility] TSH Qnon 07-17-2023 Interpretation and review of laboratory results Normal [facility] XR Chest PA and Lateralon IMPRESSION: No acute radiographic abnormality. Film Casting Operator: ELLEN Transcribe Date/Time: Feb 25 2023 2:41P Dictated by : JACKIE BATES MD This examination was interpreted and the report reviewed and electronically signed by: JACKIE BATES MD on Feb 25 2023 2:43PM [facility] DIVISION OF RADIOLOGY * * *Final Report* * * DATE OF EXAM: Feb 24 2023 3:15PM WOX 5291 - XR CHEST 2V FRONTAL/LAT / PROCEDURE REASON: Congestive heart failure, unspecified HF chronicity, unspecified heart failure t * * * * Physician Interpretation * * * * EXAMINATION: CHEST RADIOGRAPH (2 VIEW FRONTAL & LATERAL) CLINICAL HISTORY: Congestive heart failure, unspecified HF chronicity, unspecified heart failure type (HCC) MQ: XC2_6 EXAM DATE/TIME: 02/24/2023 3:15 PM COMPARISON: 01/20/2020 RESULT: Lines, tubes, and devices: None. Lungs and pleura: No consolidation. No lung mass. No pleural effusion. No pneumothorax. Minimal stable atelectasis or fibrosis at both lung bases Cardiomediastinal silhouette: Normal cardiomediastinal silhouette. Bones and soft tissues: Multilevel degenerative change. Diffuse osteopenia. DIVISION OF RADIOLOGY [facility]25/[facility]23 * * *Final Report* * * DATE OF EXAM: Feb 24 2023 3:15PM WOX 5291 - XR CHEST 2V FRONTAL/LAT / PROCEDURE REASON: Congestive heart failure, unspecified HF chronicity, unspecified heart failure t * * * * Physician Interpretation * * * * EXAMINATION: CHEST RADIOGRAPH (2 VIEW FRONTAL & LATERAL) CLINICAL HISTORY: Congestive heart failure, unspecified HF chronicity, unspecified heart failure type (HCC) MQ: XC2_6 EXAM DATE/TIME: 02/24/2023 3:15 PM COMPARISON: 01/20/2020 RESULT: Lines, tubes, and devices: None. Lungs and pleura: No consolidation. No lung mass. No pleural effusion. No pneumothorax. Minimal stable atelectasis or fibrosis at both lung bases Cardiomediastinal silhouette: Normal cardiomediastinal silhouette. Bones and soft tissues: Multilevel degenerative change. Diffuse osteopenia. IMPRESSION IMPRESSION: No acute radiographic abnormality. Film Casting Operator: PSCB Transcribe Date/Time: Feb 25 2023 2:41P Dictated by : JACKIE BATES MD This examination was interpreted and the report reviewed and electronically signed by: JACKIE BATES MD on Feb 25 2023 2:43PM EST [facility] XR Chest PA and LateralOrder ed By: Ccf Provider on 02-25-2023 [facility] XR Chest PA and Lateralon Radiology Study observation (narrative) [facility] Bedside Glucoseon 02-05-2023 FINGERSTICK GLU 241 mg/dL High 74-106 [facility] Comment on above: Result Comment: JONATHAN GEMENT OF PATIENT CARE PER NURSING PROTOCOL Performed By: #### L 501.080 #### [facility] [address] [place], [address] FINGERSTICK GLU 163 mg/dL High [facility]106 [facility] Comment on above: Result Comment: JONATHAN GEMENT OF PATIENT CARE PER NURSING PROTOCOL Performed By: #### L 501.080 #### [facility] [address] [place], [address] FINGERSTICK GLU 166 mg/dL High [address] [facility] Comment on above: Result Comment: JONATHAN GEMENT OF PATIENT CARE PER NURSING PROTOCOL Performed By: #### L 501.080 #### [facility] [address] [place], [address] Glucose Glucometer (BldC) [M ass/Vol]Ordered By: Hari Iniguez on 02-05-2023 Glucose [Mass/Vol] 241 mg/dL 74-106 [facility] Comment on above: MANAGEMENT OF PATIEN T CARE PER NURSING PROTOCOL Basic Metabolic Profile (BMP )on 02-04-2023 BUN/CRE 23.6 RATIO High 10-20 [facility] Comment on above: Performed By: #### L 500.2500 #### [facility] [address] [place], [address] CA,Total 8.8 mg/dL Normal 8.5-10.1 [facility] Comment on above: Performed By: #### L 500.2500 #### [facility] [address] [place], [address] Chloride [Moles/Vol] 103 mmol/L Normal 98-107 [facility] Comment on above: Performed By: #### L 500.2500 #### [facility] [address] [place], [address] CO2 [Moles/Vol] 26.0 mmol/L Normal 21.0-32.0 [facility] Comment on above: Performed By: #### L 500.2500 #### [facility] [address] [place], [address] Creatinine [Mass/Vol] 0.68 mg/dL Normal 0.55-1.02 [facility] Comment on above: Result Comment: The validity of the calculated GFR GFRAA in patients over 70 years has not been determined. Clinical correlation is essential. Performed By: #### L 500.2500 #### [facility] [address] [place], [address] ECRCL 37.81 ml/min Normal [facility] Comment on above: Performed By: #### L 500.2500 #### [facility] [address] [place], [address] EST GFR - AA 109 mL/min Normal >60 [facility] Comment on above: Result Comment: Afri can New Zealander GFR Calc Performed By: #### L 500.2500 #### [facility] [address] [place], [address] GAP 6 Normal 5-15 [facility] Comment on above: Performed By: #### L 500.2500 #### [facility] [address] [place], [address] GFR/1.73 sq M.predicted among non-blacks MDRD (S/P/Bld) [Vol rate/Area] 90 mL/min/{1.73_m2} Normal >60 [facility] Comment on above: Result Comment: Non- GFR Calc Performed By: #### L 500.2500 #### [facility] [address] [place], [address] Glucose [Mass/Vol] 214 mg/dL High 74-106 [facility] Comment on above: Result Comment: Gluc ose result greater than or equal to 200 mg/dL suggests DIABETES MELLITUS per A.D.A. criteria. Performed By: #### L 500.2500 #### [facility] [address] [place], [address] Potassium [Moles/Vol] 4.1 mmol/L Normal 3.5-5.1 [facility] Comment on above: Performed By: #### L 500.2500 #### [facility] [address] [place], [address] Sodium [Moles/Vol] 135 mmol/L Low 136-145 [facility] Comment on above: Performed By: #### L 500.2500 #### [facility] [address] [place], [address] Urea nitrogen [Mass/Vol] 16 mg/dL Normal 7-18 [facility] Comment on above: Performed By: #### L 500.2500 #### [facility] [address] [place], [address] Basophil percentageOrdered B y: Anselmo Nichole on 02-04-2023 Chloride [Moles/Vol] 103 mmol/L 98-107 [facility] Glucose [Mass/Vol] 214 mg/dL 74-106 [facility] Comment on above: Glucose result great er than or equal to 200 mg/dLsuggests DIABETES MELLITUS per A.D.A. criteria. Potassium [Moles/Vol] 4.1 mmol/L 3.5-5.1 [facility] Sodium [Moles/Vol] 135 mmol/L 136-145 [facility] Bedside Glucoseon 02-04-2023 FINGERSTICK GLU 207 mg/dL High 74-106 [facility] Comment on above: Result Comment: JONATHAN GEMENT OF PATIENT CARE PER NURSING PROTOCOL Performed By: #### L 500.2500 #### [facility] [address] [facility] [address] FINGERSTICK GLU 215 mg/dL [address] Comment on above: Result Comment: JONATHAN GEMENT OF PATIENT CARE PER NURSING PROTOCOL Performed By: #### L 501.080 #### [facility] [address] [facility] [address] FINGERSTICK GLU 203 mg/dL [address] Comment on above: Result Comment: JONATHAN GEMENT OF PATIENT CARE PER NURSING PROTOCOL Performed By: #### L 501.080 #### [facility] [address] [facility] [address] FINGERSTICK GLU 162 mg/dL [address] Comment on above: Result Comment: JONATHAN GEMENT OF PATIENT CARE PER NURSING PROTOCOL Performed By: #### L 500.2500 #### [facility] [address] [facility] [address] Laboratory - Chemistry and C hemistry - challengeOrdered By: Anselmo Nichole on 02-04-2023 CO2 [Moles/Vol] 26.0 mmol/L 21.0-32.0 [facility] Urea nitrogen/Creatinine [Mass ratio] 23.6 mg/mg 10-20 [facility] No Panel InformationOrdered By: Anselmo Nichole on 02-04-2023 Estimated Creatinine Clearance Calc 37.81 ml/min [facility] Estimated GFR (MDRD) Amer 109 mL/min >60 [facility] Comment on above: GFR Calc Estimated GFR (MDRD) Non-Af Amer 90 mL/min >60 [facility] Comment on above: Non- GFR Calc Serum or plasma calcium maddi urement (mass/volume)Ordered By: Anselmo Nichole on 02-04-2023 Calcium [Mass/Vol] 8.8 mg/dL 8.5-10.1 [facility] Serum or plasma creatinine m easurement (mass/volume)Ordered By: Anselmo Nichole on 02-04-2023 Creatinine [Mass/Vol] 0.68 mg/dL 0.55-1.02 [facility] Comment on above: The validity of the calculated GFR & GFRAA in patients over 70 years has not been determined. Clinical correlation is essential. Serum or plasma urea nitroge n measurement (mass/volume)Ordered By: Anselmo Nichole on 02-04-2023 Urea nitrogen [Mass/Vol] 16 mg/dL 09-03 [facility] Thin prep Papanicolaou smear with manual screeningOrdered By: Anselmo Nichole on 02-04-2023 Thin prep Papanicolaou smear with manual screening 6 07-01 [facility] 12 Lead EKGon 02-03-2023 12 Lead EKG [facility] [address] [place] [address] 12 Lead EKG 02/03/23 1811 MR#: [id number] Acct: [id number] Name: EMILY LOPEZ Rep #: [id number] : 1950 72 From: Salvador Horner MD Attending Dr: Dr. Hari Iniguez DO Status: ADM IN Ordering Dr: Hari Iniguez DO Date: 02/03/23 Location: [facility] Sex: F C Admitted: 01/31/23 Test Reason : CHANGE Blood Pressure : / mmHG Vent. Rate : 136 BPM Atrial Rate : 000 BPM P-R Int : 000 ms QRS Dur : 060 ms QT Int : 286 ms P-R-T Axes : 000 033 051 degrees QTc Int : 430 ms Atrial fibrillation with rapid ventricular response with premature ventricular or aberrantly conducted complexes Low voltage QRS Nonspecific ST abnormality Abnormal ECG When compared with ECG of 17-DEC-2023 11:13, MANUAL COMPARISON REQUIRED, DATA IS UNCONFIRMED Confirmed by SIRI FOX, SALVADOR ([id number]), development editor GRIS SIMONS ([id number]) on 02/05/2023 6:02:28 AM Referred By: Confirmed By:SALVADOR HORNER MD 02/05/23 0602 Date Salvador Horner MD CC: Dr. Hari Iniguez, DO; Dr. Rober Rubio MD Signed Normal [facility] Bedside Glucoseon 02-03-2023 FINGERSTICK GLU 151 mg/dL High 74-106 [facility] Comment on above: Result Comment: JONATHAN GEMENT OF PATIENT CARE PER NURSING PROTOCOL Performed By: #### L 501.080 #### [facility] [address] [place], [address] FINGERSTICK GLU 265 mg/dL High -106 [facility] Comment on above: Result Comment: JONATHAN GEMENT OF PATIENT CARE PER NURSING PROTOCOL Performed By: #### L 501.080 #### [facility] [address] [place], [address] FINGERSTICK GLU 181 mg/dL High [address] [place] [address] Comment on above: Result Comment: JONATHAN GEMENT OF PATIENT CARE PER NURSING PROTOCOL Performed By: #### L 501.080 #### [facility] [address] [place], [address] FINGERSTICK GLU 145 mg/dL High -106 [facility] Comment on above: Result Comment: JONATHAN GEMENT OF PATIENT CARE PER NURSING PROTOCOL Performed By: #### L 501.080 #### [facility] [address] [place], [address] Respiratory Cultureon 2022 RESPC List Antibiotics [place] 48 Hours? zithromaz Mixed normal respiratory afsaneh. No Haemophilus, Streptococcus pneumoniae, beta-hemolytic Streptococcus or Staphylococcus aureus isolated. Normal [facility] Comment on above: Performed By: #### L 501.080 #### [facility] [address] [place], [address] 12 Lead EKGon 02-02-2023 12 Lead EKG [facility] [address] [place] [address] 12 Lead EKG 02/02/23 1113 MR#: [id number] Acct: [id number] Name: EMILY LOPEZ Rep #: [id number] : 1950 72 From: Salvador Horner MD Attending Dr: Dr. Hari Iniguez DO Status: ADM IN Ordering Dr: Maurizio Wells DO Date: 02/02/23 Location: [facility] Sex: F C Admitted: 01/31/23 Test Reason : ARRYTHMIA Blood Pressure : / mmHG Vent. Rate : 132 BPM Atrial Rate : 000 BPM P-R Int : 000 ms QRS Dur : 068 ms QT Int : 294 ms P-R-T Axes : 000 041 050 degrees QTc Int : 435 ms Atrial fibrillation with rapid ventricular response with premature ventricular or aberrantly conducted complexes Nonspecific ST abnormality Abnormal ECG When compared with ECG of 31-JAN-2023 13:59, MANUAL COMPARISON REQUIRED, DATA IS UNCONFIRMED Confirmed by SIRI FOX, SALVADOR ([id number]), development editor GRIS SIMONS ([id number]) on 02/04/2023 11:00:09 AM Referred By: Confirmed By:SALVADOR HORNER MD 02/04/23 1100 Date Salvador Horner MD CC: Dr. Maurizio Wells DO; Dr. Hari Iniguez DO; Dr. Rober Rubio MD Signed Normal [facility] Bedside Glucoseon 02-02-2023 FINGERSTICK GLU 220 mg/dL High 74-106 [facility] Comment on above: Result Comment: JONATHAN GEMENT OF PATIENT CARE PER NURSING PROTOCOL Performed By: #### L 501.080 #### [facility] [address] [place], [address] FINGERSTICK GLU 235 mg/dL High 74-106 [facility] Comment on above: Result Comment: JONATHAN GEMENT OF PATIENT CARE PER NURSING PROTOCOL Performed By: #### L 501.080 #### [facility] [address] [place], [address] FINGERSTICK GLU 249 mg/dL High 74-106 [facility] Comment on above: Result Comment: JONATHAN GEMENT OF PATIENT CARE PER NURSING PROTOCOL Performed By: #### L 501.080 #### [facility] [address] [place], [address] FINGERSTICK GLU 266 mg/dL High 74-106 [facility] Comment on above: Result Comment: JONATHAN GEMENT OF PATIENT CARE PER NURSING PROTOCOL Performed By: #### L 500.2500 #### [facility] [address] [place], [address] Echo Completeon 02-02-2023 Echo Complete [facility] [address] [place] [address] Echo Complete 02/03/23 0957 MR#: [id number] Acct: [id number] Name: EMILY LOPEZ Rep #: [id number] : 1950 72 From: Milagros Cochran MD Attending Dr: Dr. Hari Iniguez, Status: ADM IN Ordering Dr: Maurizio Wells DO Date: 02/02/23 Location: [facility] Sex: F C Admitted: 01/31/23 Reason For Study: ATRIAL FIBRILLATION/ATRIAL FLUTTER Procedure This was a 2D Doppler, Color Flow transthoracic echocardiogram. Exam performed portable in patient room. Left Ventricle Normal LV size. Left ventricular systolic function is normal. The estimated ejection fraction is 60 %. Unable to assess diastolic dysfunction due to arrhythmia. No regional wall motion abnormalities noted. Right Ventricle Normal RV size. Normal systolic function. Atria The left and right atria are normal. Mitral Valve Moderate mitral annular calcification. Mild diffuse mitral valve thickening. Trivial mitral valve insufficiency. Tricuspid Valve Normal tricuspid valve. Trivial tricuspid valve insufficiency. Right ventricular systolic pressure estimated to be 30 mmHg. Aortic Valve Trisinus/trileaflet aortic valve. Mild focal aortic valve calcification. Aortic sclerosis, no stenosis. Pulmonic Valve The pulmonic valve is not well visualized. Great Vessels Normal aortic root. Pericardium/Pleural No pericardial effusion. MMode/2D Measurements Calculations LVIDd: 4.7 cm IVSd: 1.0 cm Ao root diam: 3.0 cm LVIDs: 3.5 cm LVPWd: 0.96 cm RVDd: 3.2 cm FS: 25.2 % LAV(MOD-bp): 58.4 ml LVAd ap4: 19.6 cm2 LVAd ap2: 15.2 cm2 LAV(MOD-bp) Indexed: 31.8 ml/m2 LVLd ap4: 6.5 cm LVLd ap2: 6.2 cm LAV(MOD-sp2): 58.5 ml EDV(MOD-sp4): 49.1 ml EDV(MOD-sp2): 34.4 ml LAV(MOD-sp4): 58.9 ml EDV(sp4-el): 50.3 ml EDV(sp2-el): 31.9 ml LVAs ap4: 11.2 cm2 LVAs ap2: 9.7 cm2 LVLs ap4: 5.6 cm LVLs ap2: 5.5 cm ESV(MOD-sp4): 21.1 ml ESV(MOD-sp2): 15.4 ml ESV(sp4-el): 18.9 ml ESV(sp2-el): 14.7 ml EF(MOD-sp4): 57.1 % EF(MOD-sp2): 55.2 % EF(sp4-el): 62.5 % SV(MOD-sp4): 28.0 ml SV(MOD-sp2): 19.0 ml SV(sp4-el): 31.5 ml LA dimension(2D): 4.1 cm LA A4 area: 19.7 cm2 RA A4 area: 14.8 cm2 TAPSE: 1.8 cm Doppler Measurements Calculations MV E max claudio: 133.9 cm/sec Ao V2 max: 116.1 cm/sec LV V1 max: 87.6 cm/sec Ao max P.4 mmHg LV V1 max P.1 mmHg Ao V2 mean: 81.0 cm/sec LV V1 mean P.8 mmHg Ao mean P.9 mmHg LV V1 mean: 63.7 cm/sec Ao V2 VTI: 17.4 cm LV V1 VTI: 13.0 cm AV (velocity ratio): 0.75 PA V2 max: 84.2 cm/sec TR max claudio: 261.6 cm/sec PA V2 mean: 60.4 cm/sec TR max P.4 mmHg ECHO/Echo Complete Interpretation Summary The estimated ejection fraction is 60 %. Unable to assess diastolic dysfunction due to arrhythmia. Moderate mitral annular calcification. Mild diffuse mitral valve thickening. Mild focal aortic valve calcification. Normal LV systolic function Ordering Physician: Maurizio Wells Referring Physician: Rober Rubio Performed By: Antoinette Ladd, TREYCS, RVT 02/03/231715 Date Milagros Cochran MD CC: Dr. Maurizio Wells DO; Dr. Hari Iniguez DO; Dr. Rober Rubio MD Date Dictated: 02/03/23956 Date Transcribed: 02/03/231715 Film Casting Operator: Signed Normal [facility] Absolute lymphocyte countOrd ered By: Deborah Barron on 02-01-2023 Lymphocytes Auto (Unsp spec) [#/Vol] 0.42 10*3/uL 0.83-4.51 [facility] Basic Metabolic Profile (BMP )on 02-01-2023 BUN/CRE 18.4 RATIO Normal 10-20 [facility] Comment on above: Performed By: #### L 501.080 #### [facility] [address] [place], [place], [address] CA,Total 9.6 mg/dL Normal 8.5-10.1 [facility] Comment on above: Performed By: #### L 501.080 #### [facility] [address] [place], [place], [address] Chloride [Moles/Vol] 99 mmol/L Normal 98-107 [facility] [place] Comment on above: Performed By: #### L 501.080 #### [facility] [address] [place], [address] CO2 [Moles/Vol] 28.0 mmol/L Normal 21.0-32.0 [facility] Comment on above: Performed By: #### L 501.080 #### [facility] [address] [place], [address] Creatinine [Mass/Vol] 0.76 mg/dL Normal 0.55-1.02 [facility] Comment on above: Result Comment: The validity of the calculated GFR GFRAA in patients over 70 years has not been determined. Clinical correlation is essential. Performed By: #### L 501.080 #### [facility] [address] [place], [address] ECRCL 37.81 ml/min Normal [facility] Comment on above: Performed By: #### L 501.080 #### [facility] [address] [place], [address] EST GFR - AA 96 mL/min Normal >60 [facility] Comment on above: Result Comment: Afri can [place] GFR Calc Performed By: #### L 501.080 #### [facility] [address] [place], [address] GAP 8 Normal 5-15 [facility] Comment on above: Performed By: #### L 501.080 #### [facility] [address] [place], [address] GFR/1.73 sq M.predicted among non-blacks MDRD (S/P/Bld) [Vol rate/Area] 79 mL/min/{1.73_m2} Normal >60 [facility] Comment on above: Result Comment: Non- GFR Calc Performed By: #### L 501.080 #### [facility] [address] [place], [address] Glucose [Mass/Vol] 295 mg/dL High 74-106 [facility] Comment on above: Result Comment: Gluc ose result greater than or equal to 200 mg/dL suggests DIABETES MELLITUS per A.D.A. criteria. Performed By: #### L 501.080 #### [facility] [address] [place], [address] Potassium [Moles/Vol] 3.2 mmol/L Low 3.5-5.1 [facility] Comment on above: Performed By: #### L 501.080 #### [facility] [address] [facility] [place], [address] Sodium [Moles/Vol] 135 mmol/L Low 136-145 [facility] Comment on above: Performed By: #### L 501.080 #### [facility] [address] [facility] [place], [address] Urea nitrogen [Mass/Vol] 14 mg/dL Normal 7-18 [facility] Comment on above: Performed By: #### L 501.080 #### [facility] [address] [facility] [place], [address] Basophil percentageOrdered B y: Deborah Anderson on 02-01-2023 Basophils/100 WBC (Bld) 0.3 % 0-1 [facility] Eosinophils/100 WBC (Bld) 0.0 % 0-5 [facility] Neutrophils (Bld) [#/Vol] 6.5 10*3/uL 2.0-7.7 [facility] Neutrophils/100 WBC (Bld) 89.1 % 47-70 [facility] WBC (Bld) [#/Vol] 7.3 10*3/uL 4.4-11.0 [facility] Bedside Glucoseon 02-01-2023 FINGERSTICK GLU 261 mg/dL High 74-106 [facility] Comment on above: Result Comment: Dr Rubin reno Followed MANAGEMENT OF PATIENT CARE PER NURSING PROTOCOL Performed By: #### L 500.2500 #### [facility] [address] [facility] [address] FINGERSTICK GLU 346 mg/dL High 74-106 [facility] Comment on above: Result Comment: JONATHAN GEMENT OF PATIENT CARE PER NURSING PROTOCOL Performed By: #### L 501.080 #### [facility] [address] [facility] [address] FINGERSTICK GLU 303 mg/dL High 74-106 [facility] Comment on above: Result Comment: JONATHAN GEMENT OF PATIENT CARE PER NURSING PROTOCOL Performed By: #### L 500.2500 #### [facility] [address] [place], [address] FINGERSTICK GLU 261 mg/dL High 74-106 [facility] Comment on above: Result Comment: JONATHAN GEMENT OF PATIENT CARE PER NURSING PROTOCOL Performed By: #### L 500.2500 #### [facility] [address] [facility] [address] Blood erythrocytes count (nu mber/volume)Ordered By: Deborah Barron on 02-01-2023 RBC (Bld) [#/Vol] 4.43 10*6/uL 4.2-5.4 [facility] Blood hemoglobin measurement (mass/volume)Ordered By: Deborah Barron on 02-01-2023 Hemoglobin (Bld) [Mass/Vol] 14.6 g/dL 12.0-15.0 [facility] Blood lymphocytes/100 leukoc ytesOrdered By: Deborah Barron on 02-01-2023 Lymphocytes/100 WBC (Bld) 5.8 % 19-41 [facility] Blood manual differential co mment interpretation (narrative result)Ordered By: Deborah Barron on 02-01-2023 Manual differential comment Paul (Bld) [Interp] SCANNED [facility] Blood monocytes/100 leukocyt esOrdered By: Deborah Barron on 02-01-2023 Monocytes/100 WBC (Bld) 4.1 % 0-10 [facility] Blood platelet mean volumeOr dered By: Deborah Barron on 02-01-2023 Platelet mean volume (Bld) [Entitic vol] 9.9 fL 6.2-12.0 [facility] CBC W/Diff, Automatedon 01-17 SMEAR COMMENT SCANNED Normal [facility] Comment on above: Performed By: #### L 500.2500 #### [facility] [facility] [address], [place], [id number] Determination of erythrocyte mean corpuscular volume (MCV)Ordered By: Deborah Barron on 02-01-2023 MCV (RBC) [Entitic vol] 97.5 fL 81-99 [facility] Gram Stainon 02-01-2023 GS List Antibiotics [place] 48 Hours? zithromaz Acceptable Specimen? Yes (<25 Epithelial cells per/lpf) Gram Stain 2+ Gram positive cocci 1+ Gram positive rods 2+ White Blood Cells No Epithelial cells Normal [facility] Comment on above: Performed By: #### L 501.080 #### [facility] [address] [facility] [place], [place], [id number] Hematocrit Auto (Bld) [Volum e fraction]Ordered By: Deborah Barron on 02-01-2023 Hematocrit (Bld) [Volume fraction] 43.2 % 37-47 [facility] - Hematology and Cell countsOrdered By: Deborah Barron on 02-01-2023 Erythrocyte distribution width (RBC) [Entitic vol] 44.1 fL 35.1-43.9 [facility] Erythrocyte distribution width (RBC) [Ratio] 12.4 % 11.6-14.6 [facility] Immature granulocytes/100 WBC (Bld) 0.700 % 0.0-0.9 [facility] Comment on above: IG% - Immature Granu locytes (promyelocytes, myelocytes and metamyelocytes) > 1% indicates that a LEFT SHIFT is Present. MCH (RBC) [Entitic mass] 33.0 pg 27.0-32.0 [facility] Nucleated RBC/100 WBC (Bld) [Ratio] 0 % 0-5 [facility] MCHC Auto (RBC) [Mass/Vol]Or dered By: Deborah Barron on 02-01-2023 MCHC (RBC) [Mass/Vol] 33.8 g/dL 32-36 [facility] No Panel InformationOrdered By: Deborah Barron on 02-01-2023 Thyroid Stimulating Hormone (TSH) 0.39 uIU/mL 0.358-3.74 [facility] Platelets bldOrdered By: Rajesh Barron on 02-01-2023 Platelets (Bld) [#/Vol] 226 10*3/uL 150-450 [facility] RESPIRATORY PANEL MOLECULARo n 02-01-2023 RP PANEL Normal Reference Range = Not Detected Nucleic acid amplification test method Resp path DNA+RNA Pnl Resp ERNESTINE+probe CRITICAL VALUE VERIFIED. [facility]23 1261 Nickolas Mckenzie. RESULTS READ BACK BY SAME. Resp path DNA+RNA Pnl Resp ERNESTINE+probe Copy of report sent to Infection Control Printer [id number] 02/01/23 0651 BLUCAS. Resp path DNA+RNA Pnl Resp ERNESTINE+probe ADENOVIRUS Not Detected INFLUENZA A A Positive for INFLUENZA A by NAAT technology A INFLUENZA A (SUBTYPE H1) A Positive for INFLUENZA A SUBTYPE H1 by NAAT technologyA INFLUENZA A (SUBTYPE H3) Not Detected INFLUENZA B Not Detected HUMAN METAPHNEUMO Not Detected PARAINFLUENZA 1 Not Detected PARAINFLUENZA 2 Not Detected PARAINFLUENZA 3 Not Detected PARAINFLUENZA 4 Not Detected RHINOVIRUS Not Detected RSV A Not Detected RSV B Not Detected INFLUENZA A (SUBTYPE H1) Normal [facility] Comment on above: Performed By: #### L 501.080 #### [facility] [address] [place], [address] Thyroid Stim Hormone (TSH)on 02-01-2023 TSH 0.39 uIU/mL Normal 0.358-3.74 [facility] Comment on above: Performed By: #### L 501.080 #### [facility] [address] [facility] [place], [address] 12 Lead EKGon 01-31-2023 12 Lead EKG [facility] Cardi[facility] Services [address] [place] [address] 12 Lead EKG 01/31/23 1359 MR#: [id number] Acct: [id number] Name: EMILY LOPEZ Rep #: [id number] : 1950 72 From: Kirsty Damon MD Attending Dr: Dr. Hari Iniguez DO Status: ADM IN Ordering Dr: Stevo Alcantara DO Date: 01/31/23 Location: [facility] Sex: F C Admitted: 01/31/23 Test Reason : SOB Blood Pressure : / mmHG Vent. Rate : 114 BPM Atrial Rate : 114 BPM P-R Int : 128 ms QRS Dur : 066 ms QT Int : 302 ms P-R-T Axes : 000 018 047 degrees QTc Int : 416 ms Sinus tachycardia Otherwise normal ECG Confirmed by ALEXIS FOX, THOMAS ([id number]), development editor GRIS SIMONS ([id number]) on 02/03/2023 1:34:30 PM Referred By: Confirmed By:LENORE DAMON MD 02/03/23 1334 Date Kirsty Damon MD CC: Dr. Stevo Alcatnara DO; Dr. Hari Iniguez DO; Dr. Rober Rubio MD Signed Normal [facility] Absolute lymphocyte countOrd ered By: Stevo Alcantara on 01-31-2023 Lymphocytes Auto (Unsp spec) [#/Vol] 0.98 10*3/uL 0.83-4.51 [facility] BNP,B-Type NATRIURETIC PEPTI DEOrdered By: Stevo Alcantara on 01-31-2023 Natriuretic peptide B (Bld) [Mass/Vol] 78.1 pg/mL Normal 0-100 [facility] Comment on above: Performed By: #### L 501.4020, L503.6620 #### [facility] [address] [place], [address] Basic Metabolic Profile (BMP )on 01-31-2023 BUN/CRE 13.3 RATIO Normal 10-20 [facility] Comment on above: Performed By: #### L 500.2500 #### [facility] [address] [place], [address] CA,Total 9.8 mg/dL Normal 8.5-10.1 [facility] Comment on above: Performed By: #### L 500.2500 #### [facility] [address] [place], [address] ECRCL 37.81 ml/min Normal [facility] Comment on above: Performed By: #### L 500.2500 #### [facility] [address] [place], [address] EST GFR - AA 109 mL/min Normal >60 [facility] Comment on above: Result Comment: Afri can [place] Ze[place] GFR Calc Performed By: #### L 500.2500 #### [facility] [address] [place], [address] GAP 4 Low 5-15 [facility] Comment on above: Performed By: #### L 500.2500 #### [facility] [address] [place], [address] GFR/1.73 sq M.predicted among non-blacks MDRD (S/P/Bld) [Vol rate/Area] 90 mL/min/{1.73_m2} Normal >60 [facility] Comment on above: Result Comment: Non- GFR Calc Performed By: #### L 500.2500 #### [facility] [address] [place], [address] Basic Metabolic Profile (BMP )Ordered By: Stevo Alcantara on 01-31-2023 Chloride [Moles/Vol] 98 mmol/L Normal 98-107 [facility] Comment on above: Performed By: #### L 500.2500 #### [facility] [address] [place], [address] CO2 [Moles/Vol] 33.0 mmol/L High 21.0-32.0 [facility] Comment on above: Performed By: #### L 500.2500 #### [facility] [address] [place], [place], [address] Creatinine [Mass/Vol] 0.68 mg/dL Normal 0.55-1.02 [facility] Comment on above: Result Comment: The validity of the calculated GFR GFRAA in patients over 70 years has not been determined. Clinical correlation is essential. Performed By: #### L 500.2500 #### [facility] [address] [place], [address] The validity of the calculated GFR & GFRAA in patients over 70 years has not been determined. Clinical correlation is essential. Glucose [Mass/Vol] 170 mg/dL High 74-106 [facility] Comment on above: Result Comment: Fast ing Glucose result greater than or equal to 126 mg/dL suggests DIABETES MELLITUS per A.D.A. criteria. Performed By: #### L 500.2500 #### [facility] [address] [place], [place], [address] Fasting Glucose resu lt greater than or equal to 126 mg/dL suggests DIABETES MELLITUS per A.D.A. criteria. Potassium [Moles/Vol] 3.7 mmol/L Normal 3.5-5.1 [facility] Comment on above: Performed By: #### L 500.2500 #### [facility] [address] [place], [address] Sodium [Moles/Vol] 135 mmol/L Low 136-145 [facility] Comment on above: Performed By: #### L 500.2500 #### [facility] [address] [place], [address] Urea nitrogen [Mass/Vol] 9 mg/dL Normal 7-18 [facility] Comment on above: Performed By: #### L 500.2500 #### [facility] [address] [place], [address] Basophil percentageOrdered B y: Stevo Alcantara on 01-31-2023 Neutrophils (Bld) [#/Vol] 7.4 10*3/uL 2.0-7.7 [facility] Bedside Glucoseon 01-31-2023 FINGERSTICK GLU 167 mg/dL High 74-106 [facility] Comment on above: Result Comment: JONATHAN LANDIS OF PATIENT CARE PER NURSING PROTOCOL Performed By: #### L 500.2500 #### [facility] [address] [place], [address] CBC W/Diff, Automatedon 01-17 Absolute Lymph 0.98 X10 3/uL Normal 0.83-4.51 [facility] Comment on above: Performed By: #### L 500.2500 #### [facility] [address] [place], [address] Absolute Neut 7.4 X10 3/uL Normal 2.0-7.7 [facility] Comment on above: Performed By: #### L 500.2500 #### [facility] [address] [place], [address] IG% 0.300 Normal 0.0-0.9 [facility] Comment on above: Result Comment: IG% - Immature Granulocytes (promyelocytes, myelocytes and metamyelocytes) > 1% indicates that a LEFT SHIFT is Present. Performed By: #### L 500.2500 #### [facility] [address] [place], [address] Nucleated RBC (Bld) [#/Vol] 0 10*3/uL Normal 0-5 [facility] Comment on above: Performed By: #### L 500.2500 #### [facility] [address] [place], [address] RDW SD 44.1 fl High 35.1-43.9 [facility] Comment on above: Performed By: #### L 500.2500 #### [facility] [address] [place], [address] CBC W/Diff, AutomatedOrdered By: Stevo Alcantara on 01-31-2023 Basophils/100 WBC (Bld) 0.4 % Normal 0-1 [facility] Comment on above: Performed By: #### L 500.2500 #### [facility] [address] [place], [address] Eosinophils/100 WBC (Bld) 0.7 % Normal 0-5 [facility] Comment on above: Performed By: #### L 500.2500 #### [facility] [address] [place], [address] Erythrocyte distribution width (RBC) [Ratio] 12.4 % Normal 11.6-14.6 [facility] Comment on above: Performed By: #### L 500.2500 #### [facility] [address] [place], [address] Hematocrit (Bld) [Volume fraction] 43.8 % Normal 37-47 [facility] Comment on above: Performed By: #### L 500.2500 #### [facility] [address] [place], [address] Hemoglobin (Bld) [Mass/Vol] 15.1 g/dL High 12.0-15.0 [facility] Comment on above: Performed By: #### L 500.2500 #### [facility] [address] [place], [address] Lymphocytes/100 WBC (Bld) 10.2 % Low 19-41 [facility] Comment on above: Performed By: #### L 500.2500 #### [facility] [address] [place], [address] MCH (RBC) [Entitic mass] 33.2 pg High 27.0-32.0 [facility] Comment on above: Performed By: #### L 500.2500 #### [facility] [address] [place], [address] MCHC (RBC) [Mass/Vol] 34.5 g/dL Normal 32-36 [facility] Comment on above: Performed By: #### L 500.2500 #### [facility] [address] [place], [address] MCV (RBC) [Entitic vol] 96.3 fL Normal 81-99 [facility] Comment on above: Performed By: #### L 500.2500 #### [facility] [address] [place], [address] Monocytes/100 WBC (Bld) 11.0 % High 0-10 [facility] Comment on above: Performed By: #### L 500.2500 #### [facility] [address] [place], [address] Neutrophils/100 WBC (Bld) 77.4 % High 47-70 [facility] Comment on above: Performed By: #### L 500.2500 #### [facility] [address] [place], [address] Platelet mean volume (Bld) [Entitic vol] 9.4 fL Normal 6.2-12.0 [facility] Comment on above: Performed By: #### L 500.2500 #### [facility] [address] [place], [address] Platelets (Bld) [#/Vol] 203 10*3/uL Normal 150-450 [facility] Comment on above: Performed By: #### L 500.2500 #### [facility] [address] [place], [address] RBC (Bld) [#/Vol] 4.55 10*6/uL Normal 4.2-5.4 [facility] Comment on above: Performed By: #### L 500.2500 #### [facility] [address] [place], [address] WBC (Bld) [#/Vol] 9.6 10*3/uL Normal 4.4-11.0 [facility] Comment on above: Performed By: #### L 500.2500 #### [facility] [address] [place], [place], [address] Chest 1 View (Portable)on Chest 1 View (Portable) [facility] Imaging Services [address] [place] [address] Chest 1 View (Portable) MR#: [id number] Acct: [id number] Name: EMILY LOPEZ Rep #: [id number] : 1950 F 72 From: Arcadio hall MD PCP: Dr. Rober Rubio MD Status: REG ER Study: Chest 1 View (Portable) Date of Exam: 01/31/23 Exam# [id number] Ordering Dr: Stevo Alcantara DO ADDENDUM by Dr. Arcadio Perrin MD on 01/31/23 at 1502 ======== ADDENDUM ======== [id number] ADDENDUM report for voice recognition error. 01/31/23 1502 Date cc: Dr. Stevo Alcantara DO; Dr. Rober Rubio MD * Signed ADDENDUM by Dr. Arcadio Perrin MD on 01/31/23 at 1502 RAD/Chest 1 View (Portable) IMPRESSION: Vascular congestion. Electronically Signed: Arcadio Perrin MD at 15:02 EST Reading Location ID and State: [address] [place] [address] , Service support , 01/31/23 1509 Date cc: Dr. Stevo Alcantara DO; Dr. Rober Rubio MD * Signed [id number] STUDY: X-RAY CHEST REASON FOR EXAM: Female, 72 years old. Dyspnea TECHNIQUE: Single AP portable view of the chest. COMPARISON: None. FINDINGS: EKG electrode are seen. Mild degree of vascular congestion. Mild increased markings at the lung bases to just above the left basilar scarring and/or linear atelectasis. There is no demonstrated pleural abnormality. Normal size heart. Normal mediastinum and radu. Normal visualized pulmonary arteries. There is atherosclerotic calcification of the aortic arch with tortuosity. There are diffuse degenerative changes of the visualized thoracic spine. There is degenerative osteoarthritis of the bilateral shoulders. There is no demonstrated abnormality of the visualized soft tissue structures of the upper abdomen. RAD/Chest 1 View (Portable) IMPRESSION: Mass or congestion. Mild increased markings at the lung bases suggestive of linear atelectasis and/or scarring. Electronically Signed: Arcadio Perrin MD at 14:37 EST , CC: Dr. Stevo Alcantara DO; Dr. Rober Rubio MD Film Casting Operator: Signed Normal [facility] Emergency Department Summary on 01-31-2023 Emergency Department Summary [facility] Medical Records Department [address] [place] [address] [place] [address] Emergency Department Summary 01/31/23 MR#: [id number] Acct: [id number] Name: EMILY LOPEZ Rep #: [id number] : 1950 72 From: Stevo Alcantara DO PCP: Dr. Rober Rubio MD Status:ADM IN Location: [place] [id number] HPI History of Present Illness Chief Complaint: Shortness of Breath Informant: patient Narrative Narrative: 72-year-old female presenting to the emergency room with shortness of breath and wheezing. Patient states that on Friday she developed cough and wheezing and progressively battled a week. She notes an associated fever which she states went away around Friday evening. She notes that she continues to Wheeze and bring up phlegm. She states that she quit smoking in 2010. She takes Trelegy and has a rescue inhaler. She states she has oxygen but wears it at night and it is just located in her bedroom. She states that she does not wear CPAP.. Patient notes that she has dyspnea with exertion to the bathroom. [facility] Medical History COVID Diabetes HTN (hypertension) Hypercholesteremia Obesity Pneumonia Home Medications albuterol sulfate 90 mcg/actuation aerosol inhaler 2 puff inhalation Q4H PRN PRN Wheezing 03/08/20 [History Last Taken Unknown] amlodipine 10 mg tablet 10 mg PO DAILY 03/08/20 [History Last Taken Unknown] aspirin 81 mg tablet,delayed release 81 mg PO DAILY@0800 03/08/20 [History Last Taken Unknown] atorvastatin 40 mg tablet 40 mg PO QHS 03/08/20 [History Last Taken Unknown] lisinopril 40 mg tablet 40 mg PO DAILY 03/08/20 [History Last Taken Unknown] vitamins A,C,W-wmxl-dcbpqj 2,148 mcg-113 mg-45 mg-17.4 mg tablet 1 ea PO DAILY 03/08/20 [History Last Taken Unknown] fluticasone fur. 100 mcg-umeclid 62.5 mcg-vilant 25 mcg inhalat.powder (Trelegy Ellipta) 1 inh inhalation Q24H 01/31/23 [History Last Taken Unknown] metformin 500 mg tablet 500 mg PO DAILY 01/31/23 [History Last Taken Unknown] Allergy/AdvReac Type Severity Reaction Status Date / Time codeine Allergy Itching Verified 03/08/20 19:38 Penicillins [PCN] Allergy Itching Verified 03/08/20 19:38 Sulfa (Sulfonamide Allergy Itching Verified 03/08/20 19:38 Antibiotics) Tetanus Vaccines and Toxoid Allergy NEEDS Verified 03/08/20 19:38 FOLLOW-UP Social History Smoking Status: Former smoker ROS ROS ED Constitutional Constitutional ED: Reports chills, fever(s) and sweats; Denies weight loss Eyes Eyes: Denies change in vision or diplopia ENT ENT ED: Reports rhinorrhea; Denies ear pain or sore throat Cardiovascular Cardiovascular: Denies chest pain, orthopnea, palpitations or racing heartbeat Respiratory/Chest Respiratory/Chest: Reports cough, dyspnea, dyspnea on exertion and sputum; Denies orthopnea Gastrointestinal Gastrointestinal: Denies abdominal pain, diarrhea, nausea or vomiting Genitourinary Genitourinary ED: Denies dysuria, hematuria or urinary frequency Musculoskeletal Musculoskeletal: Reports myalgias; Denies arthralgias Integumentary Denies abscess or rash Neurologic Neurologic: Denies headache(s) or weakness Psychiatric Psychiatric: Denies anxiety, depression, suicidal ideation or suicidal thoughts Endocrine Endocrinology: Denies polydipsia, polyphagia or polyuria Allergic/Immunologic Allergic/Immunologic ED: Denies mouth swelling, tongue swelling or urticaria EXAM Physical Exam Const Vital Signs: 01/31/23 13:26 01/31/23 13:49 01/31/23 14:18 Temperature 99.3 F H Temperature Source Temporal Pulse Rate 120 H 120 H Respiratory Rate 22 H 20 H Respiratory Effort Short of Breath Respiratory Depth Normal Respiratory Pattern Normal Blood Pressure 140/79 H Blood Pressure Mean 99 Pulse Ox 94 Oxygen Delivery Method Room Air Room Air 01/31/23 15:20 01/31/23 16:30 Temperature 97.8 F Temperature Source Pulse Rate 18 L 113 H Respiratory Rate 121 H 19 H Respiratory Effort Respiratory Depth Respiratory Pattern Blood Pressure 100/73 115/77 Blood Pressure Mean 82 89 Pulse Ox 95 94 Oxygen Delivery Method Room Air Positive well nourished, well developed and obese General Appearance ED: well developed Nutritional Appearance: obese HEENT Reports normocephalic, head/scalp atraumatic and moist mucous membranes Eyes PERRL and EOMs intact bilaterally Neck no lymphadenopathy, supple and no JVD Resp Resp Narrative: Patient has conversational dyspnea Auscultation: rhonchi, wheezes and diminished lung sounds Cardio regular rate, regular rhythm and no murmurs Rate: tachycardic GI normal to inspection, nondistended, normoactive bowel sounds and non-tender Palpat (more content not included)... Normal [facility] Gram stain for investigation of transfusion reactionOrdered By: Deborah Barron on 01-31-2023 Microscopic observation Gram stain Nom (Unsp spec) [facility] H AND P Exam - [facility] 01-31-2023 H&P Exam - Hospitalist [facility] Medical Records Department [address] [place] [address] H P Exam - Hospitalist 01/31/23 1717 MR#: [id number] Acct: [id number] Name: EMILY LOPEZ Rep #: [id number] : 1950 72 From: Deborah Barron MD PCP: Dr. Rober Rubio MD Status:ADM IN Location: [facility] [id number] HPI - General General Date of Admission: 01/31/23 Date of Service: 01/31/23 Chief Complaint: Increasing SOB HPI Narrative EMILY LOPEZ, is a 72 F with hypertension, former tobacco use, O2 nightly, and insomnia who presents to [facility] 01/31/2023 due to increasing shortness of breath and productive cough. Reportedly started coughing and got congested on Friday and had a fever at that time, fever has resolved but she has had increased shortness of breath and cough with yellow and brown sputum. In ED patient with significant wheezing and when ambulated with decrease sats to 85% on room air, at rest was 90 to 91% on room air. Patient denies any lung issues however uses a trilogy inhaler and oxygen at bedtime but does not note any specific underlying diagnoses. At present feels slightly better than she did on arrival she got steroids and nebs however still feels wheezy and short of breath. Patient agreeable for admission. No fever in several days, reports that she had a sick contact 3 days before she became ill but does not know what that person had. Denies any other focal complaints. Was a former tobacco user quit in 2010, does have difficulty with sleep so drinks 3 glasses of Chardonnay nightly to help her sleep, denies any history of withdrawal or problems if she does not drink aside from does not being able to sleep very well. No chest pain, no swelling. [facility] Medical History (Updated 01/31/23 @ 17:[address] Deborah Barron MD) COPD (chronic obstructive pulmonary disease) COVID Diabetes HTN (hypertension) Hypercholesteremia Legally blind Obesity Pneumonia Home Medications albuterol sulfate 90 mcg/actuation aerosol inhaler 2 puff inhalation Q4H PRN PRN Wheezing 03/08/20 [History Last Taken Unknown] amlodipine 10 mg tablet 10 mg PO DAILY 03/08/20 [History Last Taken Unknown] aspirin 81 mg tablet,delayed release 81 mg PO DAILY@0800 03/08/20 [History Last Taken Unknown] atorvastatin 40 mg tablet 40 mg PO QHS 03/08/20 [History Last Taken Unknown] lisinopril 40 mg tablet 40 mg PO DAILY 03/08/20 [History Last Taken Unknown] vitamins A,C,U-xedp-dkwlqd 2,148 mcg-113 mg-45 mg-17.4 mg tablet 1 ea PO DAILY 03/08/20 [History Last Taken Unknown] fluticasone fur. 100 mcg-umeclid 62.5 mcg-vilant 25 mcg inhalat.powder (Trelegy Ellipta) 1 inh inhalation Q24H 01/31/23 [History Last Taken Unknown] metformin 500 mg tablet 500 mg PO DAILY 01/31/23 [History Last Taken Unknown] Allergy/AdvReac Type Severity Reaction Status Date / Time venom-honey bee Allergy Severe Swelling Verified 01/31/23 17:12 codeine Allergy Itching Verified 03/08/20 19:38 Penicillins [PCN] Allergy Itching Verified 03/08/20 19:38 Sulfa (Sulfonamide Allergy Itching Verified 03/08/20 19:38 Antibiotics) Tetanus Vaccines and Toxoid Allergy NEEDS Verified 03/08/20 19:38 FOLLOW-UP Family History (Updated 01/31/23 @ 17:00 by Chinyere Melchor) Mother Heart failure Father Heart failure Social History Smoking Status: Former smoker ROS ROS Narrative General: Initially fevers early in the week but these have resolved HENT: Denies headache, some nasal congestion, denies sore throat EYES: Denies changes in vision Resp: Shortness of breath on exertion primarily with productive cough Cardiac: Denies chest pain GI: Denies abdominal pain, denies changes in bowel, denies nausea/vomiting : Denies changes in urination Extremity: Denies swelling MSK: Denies weakness Neuro: Denies any numbness/tingling Heme: Denies any bleeding or bruising Skin: Denies rashes Psychiatric: No complaints voiced Vital Signs Vital Signs Vital Signs: 01/31/23 13:26 01/31/23 13:49 01/31/23 14:18 Temperature 99.3 F H Temperature Source Temporal Pulse Rate 120 H 120 H Respiratory Rate 22 H 20 H Respiratory Effort Short of Breath Respiratory Depth Normal Respiratory Pattern Normal Blood Pressure 140/79 H Blood Pressure Mean 99 Blood Pressure Source Blood Pressure Position Blood Pressure Location Pulse Ox 94 Oxygen Delivery Method Room Air Room Air 01/31/23 15:20 01/31/23 16:30 01/31/23 17:04 Temperature 97.8 F 99.6 F H Temperature Source Oral Pulse Rate 18 L 113 H 107 H Respiratory Rate 121 H 19 H 20 H Respiratory Effort Respiratory Depth Respiratory Pattern Blood Pressure 100/73 115/77 113/91 H Blood Pressure Mean 82 89 98 Blood Pressure Source Monitor Blood Pressure Positio (more content not included)... Normal [facility] Influenza virus A and B and SARS-CoV-2 (COVID-19) Ag panel - Upper respiratory specimOrdered By: Stevo Alcantara on 01-31-2023 SARS-CoV-2 (COVID-19) RNA ERNESTINE+probe Ql (Resp) [facility] L501.4020on 01-31-2023 TROPONIN-I HS 8 pg/mL Normal 3.0-54.0 [facility] Comment on above: Order Comment: 'TROP ' Serial specimen #1, #2 or #3: 1 Result Comment: Plea se Note: New Test Units and Gender Specific Reference Ranges. For more information see Policy Stat Procedure Grand Chain High Sensitivity Troponin (TNIH) and attachments. Performed By: #### L 501.4020, L503.6620 #### [facility] [address] [place], [address] Laboratory - Chemistry and C hemistry - challengeOrdered By: Stevo Alcantara on 01-31-2023 Urea nitrogen/Creatinine [Mass ratio] 13.3 mg/mg 10-20 [facility] - Hematology and Cell countsOrdered By: Stevo Rodríguezne on 01-31-2023 Erythrocyte distribution width (RBC) [Entitic vol] 44.1 fL 35.1-43.9 [facility] Immature granulocytes/100 WBC (Bld) 0.300 % 0.0-0.9 [facility] Comment on above: IG% - Immature Granu locytes (promyelocytes, myelocytes and metamyelocytes) > 1% indicates that a LEFT SHIFT is Present. Nucleated RBC/100 WBC (Bld) [Ratio] 0 % 0-5 [facility] Legionella Antigen Urineon 1 04-03-2022 LEGU URINE, CLEAN CATCH Legionella Antigen result interpretation: L pneumo Ag Ur Ql Negative Presumptive negative for Legionella pneumophila serogroup 1 antigen in urine, suggesting no recent or current infection. Legionella Ag, Urine Negative (See interpretation below) Normal [facility] Comment on above: Performed By: #### L 501.080 #### [facility] [address] [place], [address] [id number] 01-31-2023 M101.0111 *Negative results from patients with symptom onset beyond five days should be treated as presumptive and confirmed by a molecular assay if clinically necessary. Negative results should not be used as the sole basis for treatment or for patient management. FLUABV+SARS-CoV2 Ag Pnl Up resp IA.rapid *Positive results do not differentiate between SARS-CoV and SARS-CoV-2. FLUABV+SARS-CoV2 Ag Pnl Up resp IA.rapid Negative Influenza results should be confirmed with FLU PANEL MOLECULAR if indicated. FLUABV+SARS-CoV2 Ag Pnl Up resp IA.rapid * This test has not been FDA cleared or approved; the test has been authorized by FDA under an Emergency Use Authorization (EAU) for use by laboratories certified under CLIA that meet the requirements to perform moderate, high, or waived complexity tests. FLUABV+SARS-CoV2 Ag Pnl Up resp IA.rapid Normal Reference Range: Negative Yvette, BRANT method SARS-CoV-2 (COVID 19) Negative Influenza Ag, Direct NEGATIVE for Influenza A/B Antigen (See Note) Normal [facility] Comment on above: Performed By: #### L 501.080 #### [facility] [address] [place], [place], [id number] Microbial respiratory cultur eOrdered By: Deborah Barron on 01-31-2023 Bacteria identified Respiratory culture Nom (Unsp spec) [facility] No Panel InformationOrdered By: Deborah Barron on 01-31-2023 Streptococcus pneumoniae Antigen (M [facility] No Panel InformationOrdered By: Stevo Alcantara on 01-31-2023 Estimated Creatinine Clearance Calc 37.81 ml/min [facility] Estimated GFR (MDRD) Amer 109 mL/min >60 [facility] Comment on above: GFR Calc Estimated GFR (MDRD) Non-Af Amer 90 mL/min >60 [facility] Comment on above: Non- GFR Calc Troponin I High Sensitivity 8 pg/mL 3.0-54.0 [facility] Comment on above: Please Note: New Shelia t Units and Gender Specific Reference Ranges. For more information see Policy Stat Procedure [facility] Chain High Sensitivity Troponin (TNIH) and attachments. Serum or plasma calcium maddi urement (mass/volume)Ordered By: Stevo Alcantara on 01-31-2023 Calcium [Mass/Vol] 9.8 mg/dL 8.5-10.1 [facility] Strep pneumoniae Antig(UR,CS F)on 01-31-2023 STPAG URINE, CLEAN CATCH URINE INTERPRETATION Strep pneumoniae Antig(UR,CSF) Negative Urine Presumptive negative for pneumococcal pneumonia, suggesting no current or recent pneumococcal infection. Infection due to S pneumoniae cannot be ruled out since the antigen present in the sample may be below the detection limit of the test. Strep pneumo Test Negative URINE (See interpretation below) Normal [facility] Comment on above: Performed By: #### L 501.080 #### [facility] [address] [place], [place], [id number] Thin prep Papanicolaou smear with manual screeningOrdered By: Stevo Alcantara on 01-31-2023 Thin prep Papanicolaou smear with manual screening 07-01 [facility] Urine Legionella pneumophila antigen detectionOrdered By: Deborah Barron on 01-31-2023 L. pneumophila Ag Ql (U) [facility] DXA-AXIAL SKELETONon 022 [facility] CBC panel Auto (Bld)on 11-29 Erythrocyte distribution width (RBC) [Ratio] 12.7 % 11.5 - 15.0 % [facility] Hematocrit (Bld) [Volume fraction] 43.5 % 36.0 - 46.0 % [facility] Hemoglobin (Bld) [Mass/Vol] 14.5 g/dL 11.5 - 15.5 g/dL [facility] MCH (RBC) [Entitic mass] 32.4 pg 26. 0 - 34.0 pg [facility] MCHC (RBC) [Mass/Vol] 33.3 g/dL 30.5 - 36.0 g/dL [facility] MCV (RBC) [Entitic vol] 97.1 fL 80.0 - 100.0 fL [facility] Nucleated RBC (Bld) [#/Vol] <0.01 k/uL [facility] Platelet mean volume (Bld) [Entitic vol] 9.6 fL 9.0 - 12.7 fL [facility] Platelets (Bld) [#/Vol] 301 10*3/uL 150 - 400 k/uL [facility] RBC (Bld) [#/Vol] 4.48 10*6/uL 3.90 - 5.2 0 m/uL [facility] WBC (Bld) [#/Vol] 10.94 10*3/uL 3.70 - 11 .00 k/uL [facility] Comprehensive metabolic 2000 panelon 11-29-2021 Albumin [Mass/Vol] 5.0 g/dL High 3.9 - 4.9 g/dL [facility] ALP [Catalytic activity/Vol] 135 U/L High 34 - 123 U/L [facility] ALT [Catalytic activity/Vol] 35 U/L 7 - 38 U/L [facility] Anion gap [Moles/Vol] 14 mmol/L 9 - 18 mmol/L [facility] AST [Catalytic activity/Vol] 30 U/L 13 - 35 U/L [facility] Bilirubin [Mass/Vol] 0.6 mg/dL 0.2 - 1 .3 mg/dL [facility] Calcium [Mass/Vol] 9.5 mg/dL 8.5 - 10. 2 mg/dL [facility] Chloride [Moles/Vol] 100 mmol/L 97 - 10 5 mmol/L [facility] CO2 [Moles/Vol] 24 mmol/L 22 - 30 mmol/L [facility] Creatinine [Mass/Vol] 0.51 mg/dL Low 0.58 - 0.96 mg/dL [facility] Estimated Glomerular Filtration Rate 99 mL/min/1.73m >=60 mL/min/1.73m [facility] Glucose [Mass/Vol] 119 mg/dL High 74 - 99 mg/dL [facility] Potassium [Moles/Vol] 4.4 mmol/L 3.7 - 5.1 mmol/L [facility] Protein [Mass/Vol] 7.7 g/dL 6.3 - 8.0 g/dL [facility] Sodium [Moles/Vol] 138 mmol/L 136 - 144 mmol/L [facility] Urea nitrogen [Mass/Vol] 12 mg/dL 7 - 21 mg/d L [facility] Lipid 1996 panelon 2 Cholesterol [Mass/Vol] 217 mg/dL High <200 mg/dL Cl [facility] Cholesterol in HDL [Mass/Vol] 63 mg/dL >39 mg/dL [facility] Cholesterol in LDL [Mass/Vol] 127 mg/dL High <100 mg/dL [facility] Cholesterol in LDL/Cholesterol in HDL [Mass ratio] 2.02 {ratio} <2.54 [facility] Cholesterol in VLDL [Mass/Vol] 27 mg/dL <30 mg/dL [facility] Cholesterol non HDL [Mass/Vol] 154 mg/dL High <130 mg/dL [facility] Cholesterol.total/Choles terol in HDL [Mass ratio] 3.44 {ratio} <5.10 [facility] Fasting Time 15 hrs [facility] Triglyceride [Mass/Vol] 133 mg/dL <150 mg/dL C [facility] COLONOSCOPY SCREENINGon 08-17 [facility] GLUCOSE, BLOOD (POC)on 08-27 Glucose [Mass/Vol] 142 mg/dL Abnormal 74 - 99 mg/dL [facility] Glucose [Mass/Vol] 121 mg/dL Abnormal 74 - 99 mg/dL [facility] NM CARDIAC PERF STRESS/PHARM on 02-01-2020 NM CARDIAC PERF STRESS/PHARM Final Report DATE OF EXAM: Feb 01 2020 12:57PM [facility] 0006 - NM CARDIAC PERF STRESS/PHARM / PROCEDURE REASON: Shortness of breath Physician Interpretation PATIENT: Name: MRS. EMILY LOPEZ Age: 69 years Gender: F CONCLUSIONS: 1. SPECT Perfusion Study: Normal. 2. There is no scintigraphic evidence for inducible ischemia. 3. No evidence of scarred myocardium. 4. Left ventricle is normal in size. The left ventricle systolic function is normal. 5. Right ventricle is normal in size. The right ventricle systolic function is normal. 6. This is a low risk scan. Gated Stress FBP LVEF % 68 Prior Study Comparison No prior nuclear cardiology exam available for comparison. Nuclear Med Report:1-Day Tc-Tetrofosmin Gated SPECT Myocardial Perfusion with Regadenoson Stress: Myocardial perfusion imaging was performed at rest 30 minutes following the IV injection of Tc-99m tetrofosmin. The patient received 0.4 mg of regadenoson, via rapid IV push, immediately followed by Tc-99m tetrofosmin IV. Gated post stress tomographic imaging was performed 30 to 60 minutes later. See administered doses below. [facility] Date of service: 02/01/2020 10:00:00 AM Ordering Physician: Cam Rubio Requesting Physician: Indication: Dyspnea, Unable to Exercise and Assessment for suspected CAD Interpreting physician: Lalo Bhatt MD Height: 156.00 cm BSA: 1.94 m2 Weight: 87.00 kg BMI: 35.7 kg/m2 Imaging Protocol Limitation Reason Breast attenuation. Exam Type: Rest Stress Radiopharm: Tc-99m Tetrofosmin Tc-99m Tetrofosmin Dosage(mCi): 15.8 46.0 Stress Agent: Regadenoson 0.4mg Supply provided from [facility] Resting Blood Press: 187/87 mmHg Image Quality The overall study imaging quality was deemed to be fair. The following technical issues were noted: Breast attenuation. FINDINGS: Left Ventricle Wall Motion: Stress IR:3D - All segments are normal. Rest IR:3D - Gated Stress FBP - Reversibility - Stress IR:3D Stress IR:3D Gated Stress FBP LVEF: 68 % ED Volume: 60 ml ES Volume: 19 ml TID: 0.89 Perfusion Findings Stress IR:3D - Summed Score=0 All segments demonstrate normal perfusion. Rest IR:3D - Summed Score=0 All segments demonstrate normal perfusion. Stress IR:3D Rest IR:3D Summed Score=0 Summed Score=0 LEFT VENTRICLE The left ventricle is normal in size. Left ventricular systolic function is normal. Right Ventricle The right ventricle is normal in size. Right ventricle systolic function is normal. Stress Test Findings: There is no scintigraphic evidence for inducible ischemia. There is no evidence of scarring. The left ventricular cavity size is unchanged with stress. Final -------- Stress ECG Report: [facility] Date of service: 02/01/2020 10:00:00 AM Ordering physician: ROBER RUBIO Specialist: Myra Griffin RN Security Operations Engineer: cJ Bolivar CEP Stress ECG interpreting physician: Anselmo Luciano MD PATIENT: Name: MRS. EMILY LOPEZ Age: 69 years Gender: F Height: 156.00 cm BSA: 1.94 m2 Weight: 87.00 kg BMI: 35.7 kg/m2 STRESS ECG CONCLUSION: Conclusion: Normal Comments: Normal lexiscan stress EKG. Perfusion images to be interpreted separately STRESS ECG SUMMARY: The patient's resting heart rate was 98 bpm and blood pressure was 187/87 mmHg. The maximum heart rate was 114 bpm, which is 76% predicted for age. The double product achieved was [address]. Peak heart rate was 114 bpm and peak blood pressure was 165/83 mmHg. STRESS ECG FINDINGS: Indications: Assessment for suspected CAD and Dyspnea Diagnosis: Hyperlipidemia, Hypertension, COPD and Asthma Symptoms: SOB Medications: Statins, Bronchodilators (COPD, asthma) and MARI inhibitor Medications: asa Resting ECG: Normal Sinus Rhythm, Rare PACs (<3/Min) and Rare PVCs (<3/Min) Pharamcologic Protocol: Regadenoson Stress Test: +----+---+---+---+ Step HR SYS PARIS +----+---+---+---+ 1 111 +----+---+---+---+ 2 112 175 83 +----+---+---+---+ 3 114 169 84 +----+---+---+---+ 4 110 167 82 +----+---+---+---+ 5 109 +----+---+---+---+ 6 108 +----+---+---+---+ 7 104 +----+---+---+---+ 8 94 165 83 +----+---+---+---+ +-----+---+---+---+ HR SYS PARIS +-----+---+---+---+ Final 114 165 83 +-----+---+---+---+ +----+ --+ +- ----+ Step Arrhythmias Symptoms Comments +----+ --+ +- ----+ 1 Arm Discomfort and SOB NO CHEST SYMPTOMS +----+ --+ +- ----+ 2 Arm Discomfort, Leg fatigue, Nausea NO CHEST SYMPTOMS and SOB +----+ --+ +- ----+ 3 Rare PAC (<3/min) Leg fatigue and Nausea NO CHEST SYMPTOMS +----+ --+ +- ----+ 4 Leg fatigue and Nausea NO CHEST SYMPTOMS +----+ --+ +- ----+ 5 Leg fatigue NO CHEST SYMPTOMS +----+ --+ +- ----+ 6 NO CHEST SYMPTOMS +----+ --+ +- ----+ 7 NO CHEST SYMPTOMS +----+ --+ +- ----+ 8 NO CHEST SYMPTOMS +----+ --+ +- ----+ Resting HR: 98 bpm Peak HR: 114 bpm (76% MPHR) Resting BP: 187 / 87 mmHg Peak BP: 165 / 83 mmHg Chronotropic response index (CRI): 0.55 Rate Pressure Product (RPP): 51680 Reason for test termination: End of Protocol. Symptoms during test: Chest pain, shortness of breath, nausea and leg pain. Blood pressure response: Normal BP response ST segment and T wave changes: No ST changes Arrhythmias: PACs Comments: lungs clear. lexiscan 0.4mg/5ml/10 seconds/ivp followed by radiopharmaceutical and saline Final -------- Stress Electrical Tester Battery Report: [facility] Date of service: 02/01/2020 10:00:00 AM Supervising physician: Anselmo Luciano MD PATIENT: Name: MRS. EMILY LOPEZ Age: 69 years Gender: F The supervising physician was present during the stress procedure. Final Film Casting Operator: BREANNE Transcribe Date/Time: Feb 01 2020 10:00A Dictated by : LALO BHATT MD This examination was interpreted and the report reviewed and electronically signed by: LALO BHATT MD on Feb 01 2020 1:54PM EST Normal [facility] PROGRESSon 02-01-2020 PROGRESS HNO ID: [id number] Author: Judith Ruiz (Rt) Service: Radiology Author Type: Elder Assistant Type: Progress Notes Filed: 02/01/2020 12:56 PM Note Text: RADIOLOGY SERVICE PROGRESS NOTE SERVICE DATE: 02/01/2020 SERVICE TIME: 12:54 PM PATIENT IDENTITY VERIFICATION COMPLETED USING TWO (2) STANDARD IDENTIFIERS: Name and Date of confirmed by patient verbally FALL SCREENING: Has the patient had 2 falls in the last year or 1 fall with injury or currently using an Ambulatory Assistive Device (Walker, Cane, Wheelchair, Crutches, etc.)? No PATIENT GENDER DATA: .female : No ALLERGIES: Reviewed and unchanged MEDICATIONS REVIEWED: Yes PATIENT RELEVANT IMPLANT DATA REVIEWED: Not Applicable CREATININE: Creatinine Date Value Ref Range Status 01/20/2020 0.55 (L) 0.58 - 0.96 mg/dL Final 07/15/2019 0.60 0.58 - 0.96 mg/dL Final 07/06/2018 0.55 (L) 0.58 - 0.96 mg/dL Final eGFR-All Other Races Date Value Ref Range Status 01/20/2020 >60 . Final Comment: eGFR (Estimated GFR) Units of measure: mL/min/1.73 meters squared eGFR is derived from the reexpressed MDRD Study equation using the following parameters: serum creatinine, age, gender and race. The creatinine assay has been calibrated to be traceable to IDMS. An eGFR <60 mL/min/1.73m2 for >3 months is consistent with chronic kidney disease. Refer to KDOQI guidelines for clinical interpretation. In patients with unstable renal function, e.g. those with acute kidney injury, the eGFR may not accurately reflect actual GFR. eGFR- Date Value Ref Range Status 01/20/2020 >60 Final P.O.C.T. RESULTS: N/A February 01, [address] PERFORMED: No IV SITE: Ambulatory: A peripheral IV was started in the Left antecubital site with a Angio cath: 22 gauge. POST EXAM PIV STATUS: Discontinued PROCEDURE TYPE: NM Stress: 15.8mCi [id number] was administered IV for Rest Imaging at 0955 by cc. 46.0 mCi [id number] was administered IV for Stress Imaging at 1145 by cc. ADMINISTRATION TIME: 1145 PATIENT DISCHARGED TO: Ambulatory patient, left [place] department area. A Diagnostic radioactive procedure has taken place, with no further precautions necessary other than routine body substance precautions. More information regarding radiation safety can be found using this link: [email or web address] [email or web address] [email or web address]%[email or web address] [email or web address] SIGNATURE: RT Joseph PATIENT NAME: Emily Lopez DATE: February 01, 2020 TIME: 12:54 PM PAGER/CONTACT #: Vishal [facility] XR Chest PA and Lateralon IMPRESSION: No acute radiographic abnormality. Scattered atelectatic opacities. Film Casting Operator: PSCB Transcribe Date/Time: Jan 21 2020 11:10A Dictated by : MIKE ONEILL MD This examination was interpreted and the report reviewed and electronically signed by: MIKE ONEILL MD on Jan 21 2020 11:11AM [facility] DIVISION OF RADIOLOGY * * *Final Report* * * DATE OF EXAM: Jan 20 2020 3:47PM WOX [id number] - XR CHEST 2V FRONTAL/LAT / PROCEDURE REASON: multiple diagnoses * * * * Physician Interpretation * * * * EXAMINATION: CHEST RADIOGRAPH (2 VIEW FRONTAL & LATERAL) CLINICAL HISTORY: Pulmonary emphysema, unspecified emphysema type (HCC) SOB (shortness of breath) MQ: XC2_6 EXAM DATE/TIME: 01/20/2020 3:47 PM COMPARISON: 12/09/2014 RESULT: Lines, tubes, and devices: None. Lungs and pleura: Scattered atelectatic opacities in bilateral lower lungs. No consolidation. No lung mass. No pleural effusion. No pneumothorax. Cardiomediastinal silhouette: Normal cardiomediastinal silhouette. Bones and soft tissues: Degenerative changes are present within the thoracic spine. DIVISION OF RADIOLOGY Provider, [facility] - 01/21/2020 * * *Final Report* * * DATE OF EXAM: Jan 20 2020 3:47PM WOX [id number] - XR CHEST 2V FRONTAL/LAT / PROCEDURE REASON: multiple diagnoses * * * * Physician Interpretation * * * * EXAMINATION: CHEST RADIOGRAPH (2 VIEW FRONTAL & LATERAL) CLINICAL HISTORY: Pulmonary emphysema, unspecified emphysema type (HCC) SOB (shortness of breath) MQ: XC2_6 EXAM DATE/TIME: 01/20/2020 3:47 PM COMPARISON: 12/09/2014 RESULT: Lines, tubes, and devices: None. Lungs and pleura: Scattered atelectatic opacities in bilateral lower lungs. No consolidation. No lung mass. No pleural effusion. No pneumothorax. Cardiomediastinal silhouette: Normal cardiomediastinal silhouette. Bones and soft tissues: Degenerative changes are present within the thoracic spine. IMPRESSION IMPRESSION: No acute radiographic abnormality. Scattered atelectatic opacities. Film Casting Operator: PSCB Transcribe Date/Time: Jan 21 2020 11:10A Dictated by : MIKE ONEILL MD This examination was interpreted and the report reviewed and electronically signed by: MIKE ONEILL MD on Jan 21 2020 11:11AM EST [facility] XR Chest PA and LateralOrder ed By: [facility] Provider on 01-21-2020 [facility] XR Chest PA and Lateralon Radiology Study observation (narrative) [facility] Vital Signs Date Time Vital Sign Value Performing Clinician Facility 09-20-2024 17:59-0400 Diastolic blood pressure 56 mm[Hg] Dr. Rober Rubio MD Work Phone: [facility] 09-20-2024 17:59-0400 Systolic blood pressure 111 mm[Hg] Dr. Rober Rubio MD Work Phone: [facility] 09-20-2024 17:58-0400 Body temperature 98.5 [degF] Dr. Rober Rubio MD Work Phone: [facility] 09-20-2024 17:58-0400 Heart rate 113 /min Dr. Rober Rubio MD Work Phone: [facility] 09-20-2024 17:58-0400 Inhaled oxygen flow rate 2 L/min Dr. Rober Rubio MD Work Phone: [facility] 09-20-2024 17:58-0400 Respiratory rate 26 /min Dr. Rober Rubio MD Work Phone: [facility] 09-20-2024 17:58-0400 SaO2% (BldA) [Mass fraction] 92 % Dr. Rober Rubio MD Work Phone: [facility] 09-20-2024 14:39-0400 Body mass index (BMI) [Ratio] 37.1 kg/m2 Dr. Rober Rubio MD Work Phone: [facility] 09-20-2024 14:39-0400 Body weight 89.[address] Rober Rubio MD Work Phone: [facility] 09-20-2024 14:02-0400 Body height 154.[address] Rober Rubio MD Work Phone: [facility] 09-01-2024 13:05-0400 Body mass index (BMI) [Ratio] 36.84 kg/m2 Lorenza Vo SOIL SCIENTIST.DRYING TUNNEL OPERATOR Work Phone: [facility] 09-01-2024 13:05-0400 Body weight 88.45 kg Lorenza Haagen SOIL SCIENTIST.DRYING TUNNEL OPERATOR Work Phone: [facility] 09-01-2024 13:05-0400 Diastolic blood pressure 69 mm[Hg] Lorenza Haagen SOIL SCIENTIST.DRYING TUNNEL OPERATOR Work Phone: [facility] Comment on above: R arm 09-01-2024 13:05-0400 Heart rate 104 /min Lorenza Haagen SOIL SCIENTIST.DRYING TUNNEL OPERATOR Work Phone: [facility] 09-01-2024 13:05-0400 Systolic blood pressure 149 mm[Hg] Lorenza Haagen SOIL SCIENTIST.DRYING TUNNEL OPERATOR Work Phone: [facility] Comment on above: R arm 09-01-2024 13:02-0400 Respiratory rate 16 /min Lorenza Haagen SOIL SCIENTIST.DRYING TUNNEL OPERATOR Work Phone: [facility] 09-01-2024 13:02-0400 SaO2% (BldA) [Mass fraction] 93 % Lorenza Hadodie SOIL SCIENTIST.DRYING TUNNEL OPERATOR Work Phone: [facility] 08-03-2024 09:44-0400 Diastolic blood pressure 74 mm[Hg] Emily Adams DO Work Phone: [facility] 08-03-2024 09:44-0400 Systolic blood pressure 142 mm[Hg] Emily Adams DO Work Phone: [facility] 08-03-2024 09:39-0400 Heart rate 86 /min Emily Adams DO Work Phone: [facility] 08-03-2024 09:39-0400 SaO2% (BldA) [Mass fraction] 96 % Emily Adams DO Work Phone: [facility] 05-26-2024 13:03-0400 Diastolic blood pressure 68 mm[Hg] Lorenza Haagen SOIL SCIENTIST.DRYING TUNNEL OPERATOR Work Phone: [facility] Comment on above: R arm 05-26-2024 13:03-0400 Systolic blood pressure 148 mm[Hg] Lorenza Haagen SOIL SCIENTIST.DRYING TUNNEL OPERATOR Work Phone: [facility] Comment on above: R arm 05-26-2024 13:00-0400 Heart rate 90 /min Lorenza Haagen SOIL SCIENTIST.DRYING TUNNEL OPERATOR Work Phone: [facility] 04-28-2024 12:58-0400 Body mass index (BMI) [Ratio] 37.6 kg/m2 Lorenza Haagen SOIL SCIENTIST.DRYING TUNNEL OPERATOR Work Phone: [facility] 04-28-2024 12:58-0400 Body weight 90.27 kg Lorenza Haagen SOIL SCIENTIST.DRYING TUNNEL OPERATOR Work Phone: [facility] 04-28-2024 12:58-0400 Diastolic blood pressure 74 mm[Hg] Lorenza Haagen SOIL SCIENTIST.DRYING TUNNEL OPERATOR Work Phone: [facility] Comment on above: L arm 04-28-2024 12:58-0400 Heart rate 95 /min Lorenza Haagen SOIL SCIENTIST.DRYING TUNNEL OPERATOR Work Phone: [facility] 04-28-2024 12:58-0400 Respiratory rate 16 /min Lorenza Haagen SOIL SCIENTIST.DRYING TUNNEL OPERATOR Work Phone: [facility] 04-28-2024 12:58-0400 SaO2% (BldA) [Mass fraction] 96 % Lorenza Vo SOIL SCIENTIST.DRYING TUNNEL OPERATOR Work Phone: [facility] 04-28-2024 12:58-0400 Systolic blood pressure 102 mm[Hg] Lorenza Vo SOIL SCIENTIST.DRYING TUNNEL OPERATOR Work Phone: [facility] Comment on above: L arm 02-12-2024 14:35-0500 Body mass index (BMI) [Ratio] 37.83 kg/m2 Hoda Cyr MD Work Phone: [facility] 02-12-2024 14:35-0500 Body weight 90.81 kg Hoda Cyr MD Work Phone: [facility] 02-12-2024 14:35-0500 Diastolic blood pressure 84 mm[Hg] Hoda Cyr MD Work Phone: [facility] Comment on above: 150/74 02-12-2024 14:35-0500 Heart rate 92 /min Hoda Cyr MD Work Phone: [facility] 02-12-2024 14:35-0500 SaO2% (BldA) [Mass fraction] 96 % Hoda Cyr MD Work Phone: [facility] 02-12-2024 14:35-0500 Systolic blood pressure 124 mm[Hg] Hoda Cyr MD Work Phone: [facility] Comment on above: 150/74 02-02-2024 14:07-0500 Body mass index (BMI) [Ratio] 37.41 kg/m2 Martin Benites SOIL SCIENTIST.DRYING TUNNEL OPERATOR Work Phone: [facility] [facility] 02-02-[facility]24 14:07-0500 Body weight 89.81 kg Martin Benites SOIL SCIENTIST.DRYING TUNNEL OPERATOR Work Phone: [facility] 02-02-2024 14:07-0500 Diastolic blood pressure 70 mm[Hg] Martin Benites SOIL SCIENTIST.DRYING TUNNEL OPERATOR Work Phone: [facility] 02-02-2024 14:07-0500 Heart rate 101 /min Martin [place] SOIL SCIENTIST.DRYING TUNNEL OPERATOR Work Phone: [facility] 02-02-2024 14:07-0500 Respiratory rate 18 /min Martin Padillapster SOIL SCIENTIST.DRYING TUNNEL OPERATOR Work Phone: [facility] 02-02-2024 14:07-0500 SaO2% (BldA) [Mass fraction] 95 % Martin Joter SOIL SCIENTIST.DRYING TUNNEL OPERATOR Work Phone: [facility] 02-02-2024 14:07-0500 Systolic blood pressure 114 mm[Hg] Martin [place] SOIL SCIENTIST.DRYING TUNNEL OPERATOR Work Phone: [facility] 11-04-2023 09:36-0400 Diastolic blood pressure 70 mm[Hg] Emily Ellisle DO Work Phone: [facility] 11-04-2023 09:36-0400 Systolic blood pressure 146 mm[Hg] Emily Adams DO Work Phone: [facility] 11-04-2023 09:30-0400 Heart rate 94 /min Emily Adams DO Work Phone: [facility] 11-04-2023 09:30-0400 SaO2% (BldA) [Mass fraction] 97 % Emily Adams DO Work Phone: [facility] 10-28-2023 13:41-0400 Diastolic blood pressure 78 mm[Hg] Lorenza Haagen SOIL SCIENTIST.DRYING TUNNEL OPERATOR Work Phone: [facility] Comment on above: L arm 10-28-2023 13:41-0400 Heart rate 94 /min Lorenza Haagen SOIL SCIENTIST.DRYING TUNNEL OPERATOR Work Phone: [facility] 10-28-2023 13:41-0400 Respiratory rate 16 /min Lorenza Haagen SOIL SCIENTIST.DRYING TUNNEL OPERATOR Work Phone: [facility] 10-28-2023 13:41-0400 SaO2% (BldA) [Mass fraction] 97 % Lorenza Haagen SOIL SCIENTIST.DRYING TUNNEL OPERATOR Work Phone: [facility] 10-28-2023 13:41-0400 Systolic blood pressure 112 mm[Hg] Lorenza Vo APRKadeemDRYING TUNNEL OPERATOR Work Phone: [facility] Comment on above: L arm 10-03-2023 15:06-0400 Diastolic blood pressure 72 mm[Hg] Britton Gannon DO Work Phone: [facility] Comment on above: L Arm 10-03-2023 15:06-0400 Systolic blood pressure 110 mm[Hg] Britton Gannon DO Work Phone: [facility] Comment on above: L Arm 10-03-2023 14:43-0400 Body height 154.9 cm Britton Gannon DO Work Phone: [facility] 10-03-2023 14:43-0400 Body mass index (BMI) [Ratio] 36.41 kg/m2 Britton Gannon DO Work Phone: [facility] 10-03-2023 14:43-0400 Body weight 87.4 kg Britton Gannon DO Work Phone: [facility] 10-03-2023 14:43-0400 Heart rate 108 /min Britton Gannon DO Work Phone: [facility] 10-03-2023 14:43-0400 SaO2% (BldA) [Mass fraction] 92 % Britton Gannon DO Work Phone: [facility] 09-29-2023 12:42-0400 Diastolic blood pressure 67 mm[Hg] Emily Adams DO Work Phone: [facility] 09-29-2023 12:42-0400 Systolic blood pressure 131 mm[Hg] Emily Adams DO Work Phone: [facility] 09-29-2023 12:35-0400 Heart rate 88 /min Emily Ellisle DO Work Phone: [facility] 09-29-2023 12:35-0400 SaO2% (BldA) [Mass fraction] 95 % Emily Adams DO Work Phone: [facility] 09-24-2023 13:11-0400 Diastolic blood pressure 70 mm[Hg] Lorenza Haagen SOIL SCIENTIST.DRYING TUNNEL OPERATOR Work Phone: [facility] Comment on above: R arm 09-24-2023 13:11-0400 Heart rate 78 /min Lorenza Haagen SOIL SCIENTIST.DRYING TUNNEL OPERATOR Work Phone: [facility] 09-24-2023 13:11-0400 Respiratory rate 16 /min Lorenza Haagen SOIL SCIENTIST.DRYING TUNNEL OPERATOR Work Phone: [facility] 09-24-2023 13:11-0400 SaO2% (BldA) [Mass fraction] 91 % Lorenza Haagen SOIL SCIENTIST.DRYING TUNNEL OPERATOR Work Phone: [facility] 09-24-2023 13:11-0400 Systolic blood pressure 132 mm[Hg] Lorenza Haagen SOIL SCIENTIST.DRYING TUNNEL OPERATOR Work Phone: [facility] Comment on above: R arm 08-08-2023 12:56-0400 Body mass index (BMI) [Ratio] 35.9 kg/m2 Lorenza Haagen SOIL SCIENTIST.DRYING TUNNEL OPERATOR Work Phone: [facility] 08-08-2023 12:56-0400 Body weight 86.18 kg Lorenza Haagen SOIL SCIENTIST.DRYING TUNNEL OPERATOR Work Phone: [facility] 08-08-2023 12:56-0400 Diastolic blood pressure 72 mm[Hg] Lorenza Haagen SOIL SCIENTIST.DRYING TUNNEL OPERATOR Work Phone: [facility] 08-08-2023 12:56-0400 Heart rate 96 /min Lorenza Haagen SOIL SCIENTIST.DRYING TUNNEL OPERATOR Work Phone: [facility] 08-08-2023 12:56-0400 Respiratory rate 16 /min Lorenza Haagen SOIL SCIENTIST.DRYING TUNNEL OPERATOR Work Phone: [facility] 08-08-2023 12:56-0400 SaO2% (BldA) [Mass fraction] 95 % Lorenza Haagen SOIL SCIENTIST.DRYING TUNNEL OPERATOR Work Phone: [facility] 08-08-2023 12:56-0400 Systolic blood pressure 114 mm[Hg] Lorenza Vo SOIL SCIENTIST.DRYING TUNNEL OPERATOR Work Phone: [facility] 07-23-2023 13:16-0400 Body mass index (BMI) [Ratio] 35.28 kg/m2 Martin Benites SOIL SCIENTIST.DRYING TUNNEL OPERATOR Work Phone: [facility] 07-23-2023 13:16-0400 Body weight 84.7 kg Martin Benites SOIL SCIENTIST.DRYING TUNNEL OPERATOR Work Phone: [facility] 07-23-2023 13:16-0400 Diastolic blood pressure 74 mm[Hg] Martin Benites SOIL SCIENTIST.DRYING TUNNEL OPERATOR Work Phone: [facility] 07-23-2023 13:16-0400 Heart rate 88 /min Martin Benites SOIL SCIENTIST.DRYING TUNNEL OPERATOR Work Phone: [facility] 07-23-2023 13:16-0400 SaO2% (BldA) [Mass fraction] 94 % Martin Benites SOIL SCIENTIST.DRYING TUNNEL OPERATOR Work Phone: [facility] 07-23-2023 13:16-0400 Systolic blood pressure 150 mm[Hg] Martin Benites SOIL SCIENTIST.DRYING TUNNEL OPERATOR Work Phone: [facility] 07-16-2023 10:37-0400 Body height 154.9 cm Rober Rubio MD Work Phone: [facility] 07-16-2023 10:37-0400 Body mass index (BMI) [Ratio] 35.52 kg/m2 Rober Rubio MD Work Phone: [facility] 07-16-2023 10:37-0400 Body weight 85.28 kg Rober Rubio MD Work Phone: [facility] 07-16-2023 10:37-0400 Diastolic blood pressure 72 mm[Hg] Rober Rubio MD Work Phone: [facility] 07-16-2023 10:37-0400 Heart rate 99 /min Rober Rubio MD Work Phone: [facility] 07-16-2023 10:37-0400 Systolic blood pressure 135 mm[Hg] Rober Rubio MD Work Phone: [facility] 02-05-2023 13:53-0500 SaO2% (BldA) [Mass fraction] 90 % Dr. Stevo Alcantara Work Phone: [facility] 02-05-2023 12:00-0500 Body temperature 98.5 [degF] Dr. Stevo Alcantara Work Phone: [facility] 02-05-2023 12:00-0500 Diastolic blood pressure 89 mm[Hg] Dr. Stevo Alcantara Work Phone: [facility] 02-05-2023 12:00-0500 Heart rate 107 /min Dr. Stevo Alcantara Work Phone: [facility] 02-05-2023 12:00-0500 Respiratory rate 18 /min Dr. Stevo Alcantara Work Phone: [facility] 02-05-2023 12:00-0500 Systolic blood pressure 133 mm[Hg] Dr. Stevo Alcantara Work Phone: [facility] 02-05-2023 06:00-0500 Inhaled oxygen flow rate 2 L/min Dr. Stevo Alcantara Work Phone: [facility] 02-03-2023 15:56-0500 Body height 154.[address] Stevo Alcantara Work Phone: [facility] 02-03-2023 15:56-0500 Body weight 84.[address] Stevo Alcantara Work Phone: [facility] 01-31-2023 17:04-0500 Body temperature 99.6 [degF] [facility] 01-31-2023 17:04-0500 Diastolic blood pressure 91 mm[Hg] [facility] 01-31-2023 17:04-0500 Heart rate 107 /min [facility] 01-31-2023 17:04-0500 Respiratory rate 20 /min [facility] 01-31-2023 17:04-0500 SaO2% (BldA) [Mass fraction] 96 % [facility] 01-31-2023 17:04-0500 Systolic blood pressure 113 mm[Hg] [facility] 01-31-2023 16:50-0500 Body height 154.94 cm [facility] 01-31-2023 16:50-0500 Body mass index (BMI) [Ratio] 35.3 kg/m2 [facility] 01-31-2023 16:50-0500 Body weight 84.82 kg [facility] 01-15-2022 13:58-0500 Body weight 81.65 kg Sandra Taylor APRN.DRYING TUNNEL OPERATOR Work Phone: [facility] 01-15-2022 13:58-0500 Diastolic blood pressure 76 mm[Hg] Sandra Taylor APRN.DRYING TUNNEL OPERATOR Work Phone: [facility] 01-15-2022 13:58-0500 Heart rate 108 /min Sandra Taylor APRN.DRYING TUNNEL OPERATOR Work Phone: [facility] 01-15-2022 13:58-0500 SaO2% (BldA) [Mass fraction] 93 % Sandra Taylor APRN.DRYING TUNNEL OPERATOR Work Phone: [facility] 01-15-2022 13:58-0500 Systolic blood pressure 117 mm[Hg] Sandra Taylor APRN.DRYING TUNNEL OPERATOR Work Phone: [facility] 11-29-2021 12:01-0400 Body height 156 cm NA Monroe PA-C Work Phone: [facility] 11-29-2021 12:01-0400 Body weight 79.83 kg NA Monroe PA-C Work Phone: [facility] 11-29-2021 12:01-0400 Diastolic blood pressure 62 mm[Hg] NA Monroe PA-C Work Phone: [facility] 11-29-2021 12:01-0400 Heart rate 109 /min NA Monroe PA-C Work Phone: [facility] 11-29-2021 12:01-0400 Respiratory rate 20 /min NA Monroe PA-C Work Phone: [facility] 11-29-2021 12:01-0400 SaO2% (BldA) [Mass fraction] 96 % NA Monroe PA-C Work Phone: [facility] 11-29-2021 12:01-0400 Systolic blood pressure 128 mm[Hg] NA Monroe PA-C Work Phone: [facility] 08-27-2021 10:00-0400 Body temperature 97 [degF] Rm Lo MD Work Phone: [facility] 08-27-2021 10:00-0400 Diastolic blood pressure 64 mm[Hg] Rm Lo MD Work Phone: [facility] 08-27-2021 10:00-0400 Heart rate 82 /min Rm Lo MD Work Phone: [facility] 08-27-2021 10:00-0400 Respiratory rate 24 /min Rm Lo MD Work Phone: [facility] 08-27-2021 10:00-0400 SaO2% (BldA) [Mass fraction] 94 % Rm Lo MD Work Phone: [facility] 08-27-2021 10:00-0400 Systolic blood pressure 112 mm[Hg] Rm Lo MD Work Phone: [facility] 08-27-2021 08:44-0400 Body height 154.9 cm Rm Lo MD Work Phone: [facility] 08-27-2021 08:44-0400 Body weight 81.65 kg Rm Lo MD Work Phone: [facility] 06-25-2021 13:06-0400 Body weight 81.65 kg Ro Babb APRN.DRYING TUNNEL OPERATOR Work Phone: [facility] 06-25-2021 13:06-0400 Diastolic blood pressure 65 mm[Hg] Ro Babb APRN.DRYING TUNNEL OPERATOR Work Phone: [facility] 06-25-2021 13:06-0400 Heart rate 100 /min Ro Babb APRN.DRYING TUNNEL OPERATOR Work Phone: [facility] 06-25-2021 13:06-0400 Systolic blood pressure 132 mm[Hg] Ro Babb APRN.CNP Work Phone: [facility] Encounters Encounter Date Encounter Type Care Provider Facility Start: 09-20-2024 Evaluation and manag ement of inpatient Dr. Hari Iniguez DO -Progressive Care Unit Work Phone: Start: 09-01-2024 End: 09-01-2024 Office outpatient visit 25 minutes Lorenza Vo APRN.DRYING TUNNEL OPERATOR Work Phone: [facility] Comment on above: Chronic atrial fibri llation (HCC) (Primary Dx); Type 2 diabetes mellitus without complication, with long-term current use of insulin (HCC); Essential hypertension; Hyperlipidemia, unspecified hyperlipidemia type; Atrial fibrillation with RVR (HCC); Type 2 diabetes mellitus with hyperglycemia, without long-term current use of insulin (HCC); COPD with chronic bronchitis (HCC) Start: 09-01-2024 End: 09-01-2024 [facility] Facility:[facility] Start: 08-25-2024 End: 08-25-2024 [facility] Start: 08-25-2024 End: 08-25-2024 Patient encounter procedure Vivienne Izquierdo MA [facility] Comment on above: Population Health Na vigation Outreach ([facility] ) Start: 08-03-2024 End: 08-03-2024 Patient encounter procedure Emily Adams DO Work Phone: Vascular Surgery Comment on above: Left subclavian flory ry occlusion (Primary Dx); Carotid stenosis, asymptomatic, bilateral Start: 08-03-2024 End: 08-03-2024 [facility] Facility:[facility] Start: 07-15-2024 End: 07-15-2024 [facility] Facility:[facility] Start: 07-04-2024 End: 07-05-2024 Refill Martin Benites APRN.DRYING TUNNEL OPERATOR Work Phone: Pulmonary Medicine Comment on above: Refill Request Start: 06-28-2024 End: 06-28-2024 ambulatory Becky Farias MA [facility] Start: 06-28-2024 End: 06-28-2024 Patient encounter procedure Becky Farias MA [facility] Comment on above: Population Health Na vigation Outreach (ACO, High Risk /) Start: 05-28-2024 End: 05-28-2024 Telephone encounter Rober Rubio MD Work Phone: [facility] [place] Comment on above: Results Start: 05-26-2024 End: 05-26-2024 ambulatory [facility] Facility:[facility] Start: 05-26-2024 End: 05-26-2024 Office outpatient visit 15 minutes Lorenza Vo SOIL SCIENTIST.DRYING TUNNEL OPERATOR Work Phone: [facility] [place] Comment on above: Type 2 diabetes demetrius itus without complication, without long- term current use of insulin (HCC) (Primary Dx) Start: 05-26-2024 End: 05-26-2024 [facility] Facility:[facility] Start: 05-13-2024 End: 05-13-2024 ambulatory [facility] Facility:[facility] Start: 05-12-2024 End: 05-12-2024 ambulatory Lorenza Vo SOIL SCIENTIST.DRYING TUNNEL OPERATOR Work Phone: [facility] [place] Comment on above: amilcar yoo Start: 04-28-2024 End: 05-11-2024 Patient encounter procedure Vivienne Izquierdo [facility] Comment on above: Population Health Na vigation Outreach (ACO WORKBENCH EDUARDO [facility]) Start: 04-28-2024 End: 04-28-2024 Office outpatient visit 25 minutes Lorenza Vo SOIL SCIENTIST.DRYING TUNNEL OPERATOR Work Phone: [facility] [place] Comment on above: Essential hypertensi on (Primary Dx); Atrial fibrillation with RVR (HCC); PVD (peripheral vascular disease) (HCC); Type 2 diabetes mellitus with hyperglycemia, without long-term current use of insulin (HCC); Lung nodule; COPD with chronic bronchitis (HCC); Chronic anticoagulation; Mixed hyperlipidemia Start: 04-28-2024 End: 05-11-2024 ambulatory Vivienne Izquierdo MA [facility] Start: 02-29-2024 End: 03-03-2024 Refill Martin Benites APRN.DRYING TUNNEL OPERATOR Work Phone: Pulmonary Medicine Comment on above: Refill Request Start: 02-12-2024 End: 02-12-2024 Patient encounter procedure Hoda Cyr MD Work Phone: Pulmonary Medicine Comment on above: 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) (Primary Dx); Former smoker; Class 2 obesity; Atelectasis Start: 02-12-2024 End: 02-12-2024 ambulatory [facility] Facility:[facility] Start: 02-07-2024 End: 02-09-2024 Get Medical Advice Rober Rubio MD Work Phone: [facility] [place] Comment on above: Medication unable to order Start: 02-02-2024 End: 02-02-2024 Patient encounter procedure Martin Benites APRN.DRYING TUNNEL OPERATOR Work Phone: Pulmonary Medicine Comment on above: Multiple lung nodule s (Primary Dx); Encounter for screening for lung cancer; Former tobacco use Start: 02-02-2024 End: 02-02-2024 [facility] Facility:[facility] Start: 02-02-2024 End: 02-02-2024 Subsequent hospital visit by physician [facility] (I-Stat) Work Phone: Cat Scan Comment on above: Lung nodules [R91.8] Start: 01-21-2024 End: 01-26-2024 ambulatory Rober Rubio MD Work Phone: Internal Medicine [place] [id number] Start: 12-23-2023 End: 12-23-2023 Refill Rober Rubio MD Work Phone: [facility] [place] Comment on above: Refill Request Start: 11-07-2023 End: 11-07-2023 Get Medical Advice Rober Rubio MD Work Phone: [facility] [place] Comment on above: Eliquis refill? Start: 11-04-2023 End: 11-04-2023 [facility] Facility:[facility] Start: 11-04-2023 End: 11-04-2023 Patient encounter procedure Emily Adams DO Work Phone: Vascular Surgery Comment on above: PVD (peripheral vasc ular disease) (HCC) (Primary Dx); Carotid stenosis, asymptomatic, bilateral Start: 10-30-2023 End: 10-30-2023 Refill Rober Rubio MD Work Phone: [facility] [place] Comment on above: Refill Request Start: 10-28-2023 End: 10-28-2023 Telephone encounter Lorenza Vo APRN.CNP Work Phone: [facility] [place] Comment on above: medication informati on Start: 10-28-2023 End: 10-28-2023 Office outpatient visit 15 minutes Lorenza Vo APRN.CNP Work Phone[facility] Comment on above: Primary hypertension (Primary Dx) Start: 10-28-2023 End: 10-28-2023 [facility] Start: 10-16-2023 End: 10-16-2023 Refill Lorenza Vo APRN.CNP Work Phone: [facility] [place] Comment on above: Med Change Request Start: 10-03-2023 End: 10-03-2023 [facility] Start: 10-03-2023 End: 10-03-2023 Patient encounter procedure Britton Gannon DO Work Phone: Cardiology Comment on above: Coronary artery calc ification (Primary Dx); Primary hypertension; Mixed hyperlipidemia; Paroxysmal atrial fibrillation (HCC); On apixaban therapy Start: 09-29-2023 End: 09-29-2023 [facility] Start: 09-29-2023 End: 09-29-2023 Patient encounter procedure Emily Adams DO Work Phone: Vascular Surgery Comment on above: Carotid stenosis, as ymptomatic, bilateral (Primary Dx); PVD (peripheral vascular disease) (HCC); Left subclavian artery occlusion Start: 09-24-2023 End: 09-24-2023 Office outpatient visit 25 minutes Lorenza Vo APRN.DRYING TUNNEL OPERATOR Work Phone: [facility] [place] Comment on above: Postural dizziness ( Primary Dx); Blood pressure alteration Start: 09-24-2023 End: 09-24-2023 ambulatory [facility] Facility:[facility] Start: 09-18-2023 Telephone encounter Rober Rubio MD Work Phone: [facility] [place] Comment on above: Results Start: 09-17-2023 End: 09-17-2023 [facility] Facility:[facility] Start: 08-08-2023 End: 08-08-2023 Office outpatient visit 25 minutes Lorenza Vo APRN.DRYING TUNNEL OPERATOR Work Phone: [facility] [place] Comment on above: Postural dizziness ( Primary Dx); Type 2 diabetes mellitus without complication, with long-term current use of insulin ([facility]); Blood pressure alteration; Type 2 diabetes mellitus with hyperglycemia, without long-term current use of insulin ([facility]); Vitamin D deficiency Start: 08-01-2023 Orders Only Martin jacobs APRN.DRYING TUNNEL OPERATOR Work Phone: [facility] Comment on above: Lung nodules (Primar y Dx) Start: 07-23-2023 End: 07-23-2023 Patient encounter procedure Martin Benites APRN.DRYING TUNNEL OPERATOR Work Phone: Pulmonary Medicine Comment on above: Multiple lung nodule s (Primary Dx); Encounter for screening for lung cancer; Former tobacco use; COPD with chronic bronchitis (HCC); Acute bronchiolitis due to unspecified organism Start: 07-23-2023 ambulatory [facility] Facility :[facility] Start: 07-23-2023 End: 07-23-2023 Subsequent hospital visit by physician [facility] Comment on above: Personal history of tobacco use, presenting hazards to health [Z87.891] Start: 07-17-2023 Telephone encounter Rober Rubio MD Work Phone: Pulmonology [facility] Comment on above: Results Start: 07-16-2023 End: 07-16-2023 Patient encounter procedure Rober Rubio MD Work Phone: [facility] [place] Comment on above: Atrial fibrillation with RVR (HCC) (Primary Dx); Primary hypertension; Lung nodule; COPD with chronic bronchitis (HCC); Fatty liver; Type 2 diabetes mellitus without complication, without long-term current use of insulin (HCC); Obesity, Class I, BMI 30-34.9 Start: 06-19-2023 Refill Rober Rubio MD Work Phone: [facility] [place] Comment on above: Refill Request Start: 05-15-2023 Telephone encounter Rober Rubio MD Work Phone: [facility] [place] Comment on above: Results Start: 02-24-2023 End: 02-24-2023 Subsequent hospital visit by physician [facility] [place] Work Phone: Radiology Comment on above: Congestive heart nathaly lure, unspecified HF chronicity, unspecified heart failure type (HCC) [I50.9] Start: 02-05-2023 Non-patient / Non-visit Dr. Lucas Work Phone: [facility] Work Phone: Start: 02-04-2023 Non-patient / Non-visit Dr. Lucas Work Phone: [facility] Work Phone: Start: 02-03-2023 ambulatory [facility] Start: 02-03-2023 Non-patient / Non-visit Dr. Lucas Work Phone: [facility] Start: 02-02-2023 End: 02-02-2023 ambulatory Salvador Siri Facility:[facility] Start: 02-02-2023 Non-patient / Non-visit Dr. Lucas Work Phone: [facility] Work Phone: Start: 02-01-2023 Non-patient / Non-visit Dr. Lucas Work Phone: [facility] [facility] Work Phone: Start: 01-31-2023 End: 02-05-2023 Evaluation and management of inpatient Deborah Barron Facility:[facility] Start: 01-31-2023 ambulatory Meng Wells Fac ility:[facility] Start: 01-31-2023 End: 02-05-2023 Evaluation and management of inpatient [facility]-Progressive Care Unit Work Phone: Start: 01-22-2023 ambulatory Rober Rubio MD Work Phone: [facility] Start: 10-07-2022 Refill Rober Rubio MD Work Phone: [facility] Comment on above: Refill Request Start: 06-17-2022 ambulatory Vivienne Izquierdo MA [facility] Start: 06-17-2022 Patient encounter procedure Vivienne Izquierdo MA [facility] Comment on above: Population Health Na vigation Outreach (ANNUAL MEDICARE WELLNESS ) Start: 06-04-2022 ambulatory Rober Rubio MD Work Phone: [facility] Start: 03-18-2022 Refill Rober Rubio MD Work Phone: [facility] Comment on above: Refill Request Start: 02-20-2022 ambulatory Rober Rubio MD Work Phone: [facility] Start: 01-15-2022 End: 01-15-2022 Patient encounter procedure Sandra Taylor APRN.DRYING TUNNEL OPERATOR Work Phone: Pulmonary Medicine Comment on above: Lung nodules (Primar y Dx); Former tobacco use Start: 01-15-2022 End: 01-15-2022 Subsequent hospital visit by physician [facility] Work Phone: Radiology Comment on above: Asymptomatic postmen opausal status [Z78.0] Start: 12-20-2021 End: 12-20-2021 Subsequent hospital visit by physician [facility] Radiology Comment on above: Lung nodules [R91.8] Start: 12-14-2021 Orders Only Becky Matta APRN.DRYING TUNNEL OPERATOR Work Phone: Pulmonary Medicine Comment on above: Lung nodules (Primar y Dx) Start: 12-13-2021 Telephone encounter Rober Rubio MD Work Phone: [facility] Comment on above: Orders Start: 12-01-2021 Telephone encounter Nicola Britton Monroe PA-C Work Phone: [facility] Comment on above: Orders Start: 11-29-2021 End: 11-29-2021 Patient encounter procedure Nicola Britton Monroe PA-C Work Phone: [facility] [place] Comment on above: Medicare [facility], subsequent (Primary Dx); Primary hypertension; Coronary artery calcification; Aortic valve calcification; Type 2 diabetes mellitus without complication, with long-term current use of insulin (HCC); Mixed hyperlipidemia; Pulmonary emphysema, unspecified emphysema type (HCC); SOB (shortness of breath); COPD with chronic bronchitis (HCC); Hypoxia; Vision loss; History of colonic polyps; Elevated liver enzymes; Vitamin D deficiency; Asymptomatic postmenopausal status; Obesity, Class I, BMI 30-34.9 Start: 11-08-2021 Refill Rober Rubio MD Work Phone: [facility] [place] Comment on above: Refill Request Start: 09-18-2021 Refill Hoda Cyr MD Work Phone: Pulmonary Medicine Comment on above: Refill Request Start: 09-18-2021 End: 09-18-2021 Patient encounter procedure Sandra Taylor SANDY.DRYING TUNNEL OPERATOR Work Phone: Pulmonary Medicine Comment on above: No-show for appointm ent (Primary Dx) Start: 09-14-2021 Telephone encounter Gris taveras PA-C Work Phone: General Surgery Comment on above: Missed Appointment ( results) Start: 09-03-2021 Telephone encounter Gris taveras PA-C Work Phone: General Surgery Comment on above: Procedure Follow Up (08/27/21 colonoscopy) Start: 08-27-2021 End: 08-27-2021 Subsequent hospital visit by physician Rm Lo MD Work Phone: [facility] Endoscopy Comment on above: Screening for colon cancer [Z12.11] Start: 07-11-2021 Telephone encounter Rober Rubio MD Work Phone: Family [facility] [place] Comment on above: Orders Start: 07-03-2021 Refill Rober Rubio MD Work Phone: Family [facility] [place] Comment on above: Refill Request Start: 06-25-2021 End: 06-25-2021 Patient encounter procedure Roberenice Babb APRN.DRYING TUNNEL OPERATOR Work Phone: Cardiology Comment on above: Primary hypertension (Primary Dx); Coronary artery calcification; Aortic valve calcification; Mixed hyperlipidemia Start: 06-13-2021 Refill Rober Rubio MD Work Phone: [facility] [place] Comment on above: Refill Request Start: 04-10-2021 Telephone encounter Gris taveras PA-C Work Phone: General Surgery Comment on above: 08-27-2021 Colon Med feroz Start: 01-16-2021 Telephone encounter Rober Rubio MD Work Phone: [facility] [place] Comment on above: Appointment Start: 01-20-2020 End: 01-20-2020 Subsequent hospital visit by physician oJse L [facility] [place] Work Phone: Radiology Comment on above: Pulmonary emphysema, unspecified emphysema type (HCC) [J43.9] Procedures Date Procedure Procedure Detail Performing Clinician Start: 09-20-2024 Carbon dioxide measurement, partial pressure Dr. Rober Rubio MD Work Phone: Start: 09-20-2024 Gases blood o2 satur ation only direct maddi Dr. Rober Rubio MD Work Phone: Start: 09-20-2024 Measurement of parti al pressure of oxygen in blood Dr. Rober Rubio MD Work Phone: Start: 09-20-[address] Rober Rubio MD Work Phone: Start: 09-20-[address] Rober Rubio MD Work Phone: Start: 09-20-2024 Plain chest X-ray Dr. Cam Rubio MD Work Phone: Start: 02-24-2023 Radiologic exam ches t 2 views Rober Rubio MD Work Phone: Start: 01-31-2023 Plain chest X-ray Start: 01-31-2023 Investigation of transfusion reaction Dr. Stevo Alcantara Work Phone: Start: 01-31-2023 Legionella pneumophi la antigen assay Dr. Stevo Alcantara Work Phone: Start: 01-31-2023 Res[address] micro[address] l culture Dr. Stevo Alcantara Work Phone: Start: 01-31-2023 SARS-CoV-2 & FLU Ant igen (Rapid) Start: 01-31-2023 Streptococcus pneumo niae Antigen (M Dr. Stevo Alcantara Work Phone: Start: 01-15-2022 Dxa bone density inderjit dy 1/> sites axial charla M Britton ALCANTARAC Work Phone: Start: 08-27-2021 End: 08-27-2021 Gluc bld gluc mntr dev cleared fda spec home use Meng Marquez MD Work Phone: Start: 08-27-2021 Colon ca scrn not hi rsk ind Gris ALCANTARAC Work Phone: Start: 08-27-2021 Colonoscopy Rm sweet MD Work Phone: Start: 01-20-2020 Radiologic exam ches t 2 views Rober Rubio MD Work Phone: Start: 03-10-2019 Mammography Rober Vail MD Work Phone: Start: 07-14-2018 Adult depression scr eening assessment Rober Rubio MD Work Phone: Start: 12-04-2016 Colonoscopy Rober Vail MD Work Phone: Plan of Treatment Date Care Activity Detail Author Start: 08-27-2026 Colonoscopy COLONOSCOPY [facility] Start: 08-27-2026 COLORECTAL CANCER SCREENING COLORECTAL CANCER SCREENING [facility] Start: 08-27-2026 Screening for malign ant neoplasm of colon [facility] Start: 09-01-2025 Annual PCP Team Juliette quynh Disease Visit Annual PCP Team Chronic Disease Visit [facility] Start: 05-26-2025 Annual PCP Team Juliette beauchamp Disease Visit Annual PCP Team Chronic Disease Visit [facility] Start: 05-26-2025 Hepatitis B surface antibody level LDL Cholesterol [facility] Start: 05-20-2025 Glaucoma screening Dilated Retinal E xam [facility] Start: 04-28-2025 Annual PCP Team Juliette beauchamp Disease Visit Annual PCP Team Chronic Disease Visit [facility] Start: 04-28-2025 BP Controlled (<130/80) BP Controlle d (<130/80) [facility] Start: 02-15-2025 End: 02-15-2025 Patient encounter procedure Vasculary Surgery Comment on above: Dx: Left subclavian artery occlusion [I70.8]; Carotid stenosis, asymptomatic, bilateral [I65.23] Follow up Start: 02-07-2025 End: 02-07-2025 Patient encounter procedure Cat Scan Comment on above: LUNG SCREENING Start: 02-01-2025 BP Controlled (<130/80) BP Controlle d (<130/80) [facility] Start: 02-01-2025 Screening for malign ant neoplasm of lung Lung Cancer Screening [facility] Start: 11-25-2024 Hemoglobin A1c measurement HbA1C [facility] Start: 10-27-2024 Annual PCP Team Juliette beauchamp Disease Visit Annual PCP Team Chronic Disease Visit [facility] Start: 10-27-2024 BP Controlled (<130/80) BP Controlle d (<130/80) [facility] Start: 10-18-2024 Influenza vaccination Influenza Vacc ine (#1) [facility] Start: 10-14-2024 End: 10-14-2024 Patient encounter procedure 10/14/2024 11:30 AM EDT Office Visit Cardiology [address] [place] [id number] Emilee Newton APRN.DRYING TUNNEL OPERATOR [address] [place] [address] follow up Cardiology Comment on above: follow up Start: 10-09-2024 End: 10-09-2024 Patient encounter procedure 10/09/2024 11:00 AM EDT Office Visit [facility] [place] [address] [place] [address] Rober Rubio MD [address] [place] [address] 1 month follow up [facility] [place] Comment on above: 1 month follow up Start: 10-02-2024 BP Controlled (<130/80) BP Controlle d (<130/80) [facility] Start: 09-23-2024 Annual PCP Team Shock Absorption Floor Layer quynh Disease Visit Annual PCP Team Chronic Disease Visit [facility] Start: 09-21-2024 [facility] Start: 09-20-2024 Bacteria identified in Sputum by Culture [facility] Start: 09-20-2024 Legionella pneumophi la Ag [Presence] in Urine [facility] Start: 09-20-2024 Streptococcus pneumo niae antigen assay [facility] Start: 09-20-2024 Verification routine [facility] Start: 09-20-2024 Admission procedure [facility] Start: 09-20-2024 Hospital admission, emergency, from emergency room, medical nature [facility] Start: 09-20-2024 End: 09-20-2024 [facility] Start: 09-20-2024 End: 09-20-2024 Administration of blood product [facility] Start: 09-20-2024 End: 09-20-2024 [facility] Start: 09-20-2024 Bacteria identified in Blood by Culture Blood Culture [facility] Start: 09-01-2024 End: 12-01-2024 Hemoglobin A1c in Blood HEMOGLOBIN A1C Lab Routine Type 2 diabetes mellitus without complication, with long-term current use of insulin (HCC) Expected: 09/01/2024, Expires: 12/01/2024 [facility] Work Phone: Comment on above: Expected: 09/01/2024 , Expires: 12/01/2024 Start: 09-01-2024 End: 09-01-2024 Patient encounter procedure 09/01/2024 1:00 PM EDT Office Visit Family [facility] [address] [place] [address] Lorenza Vo APRN.DRYING TUNNEL OPERATOR [address] [place] [address] 1 month follow up (40 min per [facility]) [facility] Comment on above: 1 month follow up (4 0 min per CH) Start: 08-27-2024 Colonoscopy COLONOSCOPY [facility] Start: 08-27-2024 COLORECTAL CANCER SCREENING COLORECTAL CANCER SCREENING [facility] Start: 08-07-2024 Annual PCP Team Shock Absorption Floor Layer quynh Disease Visit Annual PCP Team Chronic Disease Visit [facility] Start: 08-07-2024 BP Controlled (<130/80) BP Controlle d (<130/80) [facility] Start: 08-07-2024 Diabetic foot examination Diabetic F oot Exam [facility] Start: 07-22-2024 Screening for malign ant neoplasm of lung Lung Cancer Screening [facility] Start: 07-15-2024 Annual PCP Team Shock Absorption Floor Layer quynh Disease Visit Annual PCP Team Chronic Disease Visit [facility] Start: 07-15-2024 Hepatitis B surface antibody level LDL Cholesterol [facility] Start: 07-15-2024 End: 07-15-2024 Patient encounter procedure Vasculary Surgery Comment on above: PVD (peripheral vasc ular disease) (HCC) [I73.9] Carotid stenosis, as ymptomatic, bilateral [I65.23] Start: 07-01-2024 Covid-19 Vaccine ( season) Covid-19 Vaccine () [facility] Start: 06-27-2024 End: 09-26-2024 Hepatic function 2000 panel - Serum or Plasma HEPATIC FUNCTION PNL Lab Routine Fatty liver Expected: 06/27/2024, Expires: 09/26/2024 [facility] Work Phone: Comment on above: Expected: 06/27/2024 , Expires: 09/26/2024 Start: 05-26-2024 End: 05-26-2024 Patient encounter procedure 05/26/2024 1:00 PM EDT Office Visit [facility] [address], [place] [phone] Lorenza Vo APRN.DRYING TUNNEL OPERATOR [address] [place] [address] 1 month follow up (40 min per CH) [facility] Comment on above: 1 month follow up (4 0 min per CH) Start: 05-25-2024 End: 05-25-2024 Patient encounter procedure 05/25/2024 2:30 PM EDT Office Visit Vascular Surgery [address] [place], [place] [phone] Emily Adams, [address] [place] [address] 6 month follow up after testing Vascular Surgery Comment on above: [address] testing Start: 05-25-2024 End: 05-25-2024 Patient encounter procedure Vasculary Surgery Comment on above: PVD (peripheral vasc ular disease) (HCC) [I73.9] Carotid stenosis, as ymptomatic, bilateral [I65.23] Start: 05-13-2024 End: 05-13-2024 Nursing evaluation of patient and report 05/13/2024 10:30 AM EDT Nurse Visit [facility] [address], [place] [phone] Nurse, Nd [address] [place], [place] [phone] Mounjaro instruction [facility] Comment on above: Mounjaro instruction Start: 04-28-2024 End: 07-28-2024 CBC W Auto Differential panel - Blood COMPLETE BLOOD COUNT AND DIFFERENTIAL Lab Routine Chronic anticoagulation Expected: 04/28/2024, Expires: 07/28/2024 [facility] Work Phone: Comment on above: Expected: 04/28/2024 , Expires: 07/28/2024 Start: 04-28-2024 End: 07-28-2024 Comprehensive metabolic 2000 panel - Serum or Plasma COMPREHENSIVE METABOLIC PANEL Lab Routine Essential hypertension Expected: 04/28/2024, Expires: 07/28/2024 [facility] Comment on above: Expected: 04/28/2024 , Expires: 07/28/2024 Start: 04-28-2024 End: 07-28-2024 Hemoglobin A1c in Blood HEMOGLOBIN A1C Lab Routine Type 2 diabetes mellitus with hyperglycemia, without long-term current use of insulin (HCC) Expected: 04/28/2024, Expires: 07/28/2024 [facility] Comment on above: Expected: 04/28/2024 , Expires: 07/28/2024 Start: 04-28-2024 End: 07-28-2024 LIPID PANEL, NONFASTING LIPID PANEL, NONFASTING Lab Routine Mixed hyperlipidemia Expected: 04/28/2024, Expires: 07/28/2024 [facility] Comment on above: Expected: 04/28/2024 , Expires: 07/28/2024 Start: 04-28-2024 End: 04-28-2024 Patient encounter procedure [facility] [place] Comment on above: 6 month follow up Start: 04-15-2024 End: 04-15-2024 Patient encounter procedure 04/15/2024 2:30 PM EST Office Visit Cardiology [address] [phone] Emilee Newton APRN.DRYING TUNNEL OPERATOR [address] [place] [id number] 6 month follow up Cardiology Comment on above: 6 month follow up Start: 04-14-2024 Annual PCP Team Shock Absorption Floor Layer quynh Disease Visit Annual PCP Team Chronic Disease Visit [facility] Start: 04-14-2024 BP Controlled (<130/80) BP Controlle d (<130/80) [facility] Start: 02-25-2024 Hepatitis B surface antibody level LDL Cholesterol [facility] Start: 02-18-2024 Advance Directive Discussion Advance Directive Discussion [facility] Start: 02-12-2024 End: 02-12-2024 Patient encounter procedure 02/12/2024 2:45 PM EST Office Visit Pulmonary Medicine [address] [place] [address] Hoda Cyr MD [address] [place] [address] follow up Pulmonary Medicine Comment on above: follow up Start: 02-02-2024 End: 02-02-2024 Patient encounter procedure Cat Scan Comment on above: 6 month f/u Lung nod ules Start: 01-16-2024 Hemoglobin A1c measurement HbA1C [facility] Start: 11-04-2023 End: 11-04-2023 Patient encounter procedure 11/04/2023 9:15 AM EDT Office Visit Vascular Surgery [address] [place] [address] Emily Adams, [address] [place], [place] [phone] Follow up Vascular Surgery Comment on above: Follow up Start: 10-30-2023 End: 10-30-2023 Patient encounter procedure Vasculary Surgery Comment on above: Carotid stenosis, as ymptomatic, bilateral [I65.23] Start: 10-28-2023 End: 10-28-2023 Patient encounter procedure 10/28/2023 1:40 PM EDT Office Visit [facility] [place] [address] [place], [place] [phone] Lorenza Vo APRN.DRYING TUNNEL OPERATOR [address] [place] [address] 1 month follow up [facility] [place] Comment on above: 1 month follow up Start: 10-19-2023 Covid-19 Vaccine ( season) Covid-19 Vaccine ( season) [facility] Start: 10-19-2023 Covid-19 Vaccine ( season) Covid-19 Vaccine ( season) [facility] Start: 10-19-2023 Influenza vaccination Influenza Vacc ine (#1) [facility] Start: 10-03-2023 End: 10-03-2023 Patient encounter procedure 10/03/2023 2:40 PM EDT Office Visit Cardiology [address] [address] Britton Gannon, DO [address] [place] [address] Gannon. Previously seen in [place] [facility] Comment on above: New to Dr Gannon. Pre viously seen in [place] Start: 09-29-2023 End: 09-29-2023 Patient encounter procedure 09/29/2023 12:30 PM EDT Office Visit Vascular Surgery [address] [phone] Emily Adams, DO [address] [place] [address] PVD (peripheral vascular disease) (HCC) [I73.9] Vascular Surgery Comment on above: PVD (peripheral vasc ular disease) (HCC) [I73.9] Start: 09-24-2023 End: 09-24-2023 Patient encounter procedure 09/24/2023 1:00 PM EDT Office Visit Family [facility] [address] [place], [place] [phone] Lorenza Vo APRN.DRYING TUNNEL OPERATOR [address], [place] [phone] 1 month follow up Family [facility] Comment on above: 1 month follow up Start: 09-17-2023 End: 09-17-2023 Patient encounter procedure 09/17/2023 12:30 PM EDT Office Visit Vasculary Surgery [address] [place], [place] [phone] Blood pressure alteration [R68.89]; Type 2 diabetes mellitus with hyperglycemia, without long-term current use of insulin (HCC) [E11.65] [facility] Comment on above: Blood pressure alter ation [R68.89]; Type 2 diabetes mellitus with hyperglycemia, without long-term current use of insulin (HCC) [E11.65] Start: 08-28-2023 End: 11-27-2023 Hepatic function 2000 panel - Serum or Plasma HEPATIC FUNCTION PNL Lab Routine Hyperlipidemia, unspecified hyperlipidemia type Expected: 08/28/2023, Expires: 11/27/2023 [facility] Work Phone: Comment on above: Expected: 08/28/2023 , Expires: 11/27/2023 Start: 08-28-2023 End: 11-27-2023 Lipid 1996 panel - Serum or Plasma LIPID PANEL BASIC Lab Routine Hyperlipidemia, unspecified hyperlipidemia type Expected: 08/28/2023, Expires: 11/27/2023 [facility] Comment on above: Expected: 08/28/2023 , Expires: 11/27/2023 Start: 08-28-2023 End: 08-28-2023 Patient encounter procedure 08/28/2023 9:20 AM EDT Office Visit Cardiology [facility] [address] [place], [place] [phone] Britton Gannon DO [address] [place], [place] [phone] Atrial fibrillation with RVR (HCC) [I48.91] Cardiology Comment on above: Atrial fibrillation with RVR (HCC) [I48.91] Start: 08-25-2023 Hemoglobin A1c measurement HbA1C [facility] Start: 08-08-2023 End: 08-08-2023 Patient encounter procedure 08/08/2023 1:00 PM EDT Office Visit [facility] [place] [address] [place] [address] Lorenza Vo APRN.DRYING TUNNEL OPERATOR [address] [place], [place] [address] 2 week follow up [facility] [place] Comment on above: 2 week follow up Start: 07-23-2023 End: 07-23-2023 Patient encounter procedure Radiology Comment on above: CT [facility] Start: 07-15-2023 End: 07-15-2023 Patient encounter procedure 07/15/2023 1:00 PM EDT Office Visit [facility] [place] [address] [place] [address] Nicola Monroe PA-C [address] [place] [address] 3 month follow up [facility] [place] Comment on above: 3 month follow up Start: 05-09-2023 Shingrix Vaccine (3 of 3) Gutierres grix Vaccine (3 of 3) [facility] Start: 03-30-2023 Covid-19 Vaccine ( season) Covid-19 Vaccine () [facility] Start: 02-17-2023 Advance Directive Discussion Advance Directive Discussion [facility] Start: 02-17-2023 Behavioral Health Screening Behavioral Health Screening [facility] Start: 02-05-2023 Patient discharge [facility] Start: 02-04-2023 Care planning and pr oblem solving actions [facility] Start: 02-04-2023 [facility] Start: 02-03-2023 Care planning and pr oblem solving actions [facility] Start: 02-01-2023 Respiratory secretio n precautions [facility] Start: 01-31-2023 Following clinical pathway protocol [facility] Start: 01-31-2023 Assessment of risk o f venous thromboembolism [facility] Start: 01-31-2023 Care regimes management [facility] Start: 01-31-2023 Insertion of cathete r into peripheral vein [facility] Start: 01-31-2023 Measuring intake and output [facility] Start: 01-31-2023 Notification of physician [facility] Start: 01-31-2023 Oxygen therapy [facility] Start: 01-31-2023 Providing care accor ding to standard [facility] Start: 01-31-2023 Provision of activit y privileges [facility] Start: 01-31-2023 [facility] Start: 01-31-2023 Admission procedure [facility] Start: 01-31-2023 Hospital admission, emergency, from emergency room, medical nature [facility] Start: 01-31-2023 Inhalation therapy procedure [facility] Start: 01-15-2023 BP CONTROLLED (<130/80) BP CONTROLLE D (<130/80) [facility] Start: 12-22-2022 Hemoglobin A1c/Hemoglobin.total in Blood HBA1C [facility] Start: 12-20-2022 Influenza vaccination LUNG CANCER SC REEJOSE [facility] Start: 11-03-2023 Screening for malign ant neoplasm of lung Lung Cancer Screening [facility] Start: 11-29-2022 3 comp foot exam completed DIABETIC FOOT EXAM [facility] Start: 11-29-2022 ANNUAL PCP TEAM GAMB CUTTER QUYNH DISEASE VISIT ANNUAL PCP TEAM CHRONIC DISEASE VISIT [facility] Start: 11-29-2022 BP CONTROLLED (<130/80) BP CONTROLLE D (<130/80) [facility] Start: 11-29-2022 Diabetic foot examination Diabetic F oot Exam [facility] Start: 11-29-2022 Hepatitis B screening URINE AL BUMIN:CREATININE RATIO [facility] Start: 11-29-2022 Hepatitis B surface antibody level LDL CHOLESTEROL [facility] Start: 11-29-2022 Medicare Annual Well ness Visit Medicare Annual Wellness Visit [facility] Start: 10-18-2022 Influenza vaccination INFLUENZA (#1) [facility] Start: 08-15-2022 Glaucoma screening Dilated Retinal E xam [facility] Start: 08-15-2022 Hepatitis C antibody , confirmatory test DILATED RETINAL EXAM [facility] Start: 06-04-2022 End: 08-04-2022 Hemoglobin A1c in Blood HGB A1C Lab Routine Type 2 diabetes mellitus without complication, without long-term current use of insulin (HCC) Expected: 06/04/2022, Expires: 08/04/2022 [facility] Work Phone: Comment on above: Expected: 06/04/2022 , Expires: 08/04/2022 Start: 06-02-2022 COVID-19 VACCINE (5 - Pfizer series) COVID-19 VACCINE (5 - Pfizer series) [facility] Start: 05-30-2022 Hemoglobin A1c/Hemoglobin.total in Blood HBA1C [facility] Start: 04-10-2022 ANNUAL PCP TEAM GAMB CUTTER QUYNH DISEASE VISIT ANNUAL PCP TEAM CHRONIC DISEASE VISIT [facility] Start: 03-21-2022 Influenza vaccination LUNG CANCER SC REENING [facility] Start: 03-01-2022 End: 05-01-2022 Hemoglobin A1c in Blood HGB A1C Lab Routine Type 2 diabetes mellitus without complication, with long-term current use of insulin (HCC) Expected: 03/01/2022, Expires: 05/01/2022 [facility] Work Phone: Comment on above: Expected: 03/01/2022 , Expires: 05/01/2022 Start: 02-17-2022 ADVANCE DIRECTIVE DISCUSSION ADVANCE DIRECTIVE DISCUSSION [facility] Start: 02-17-2022 DEPRESSION ASSESSMENT DEPRESSION ASS ESSMENT [facility] Start: 12-29-2021 Hepatitis B surface antibody level LDL CHOLESTEROL [facility] Start: 12-01-2021 End: 01-31-2022 Hemoglobin A1c in Blood HGB A1C Lab Routine Type 2 diabetes mellitus without complication, without long-term current use of insulin (HCC) Expected: 12/01/2021, Expires: 01/31/2022 [facility] Work Phone: Comment on above: Expected: 12/01/2021 , Expires: 01/31/2022 Start: 11-29-2021 End: 01-29-2022 25-hydroxyvitamin D3 [Mass/volume] in Serum or Plasma VITAMIN D 25 HYDROXY Lab Routine Vitamin D deficiency Expected: 11/29/2021, Expires: 01/29/2022 [facility] Work Phone: Comment on above: Expected: 11/29/2021 , Expires: 01/29/2022 Start: 11-29-2021 End: 01-29-2022 ALBUMIN/CREAT RATIO RND UR [facility] Work Phone: Comment on above: Expected: 11/29/2021 , Expires: 01/29/2022 Start: 10-18-2021 Influenza vaccination INFLUENZA (#1) [facility] Start: 07-11-2021 End: 11-11-2021 SARS-CoV-2 (COVID-19) RNA [Presence] in Respiratory specimen by ERNESTINE with probe detection ASYMPTOMATIC ELECTIVE COVID-19 Microbiology Routine Encounter for screening laboratory testing for COVID-19 virus in asymptomatic patient Expected: 07/11/2021, Expires: 11/11/2021 [facility] Work Phone: Comment on above: Expected: 07/11/2021 , Expires: 11/11/2021 Start: 06-30-2021 COVID-19 VACCINE (4 - Booster for Pfizer series) COVID-19 VACCINE (4 - Booster for Pfizer series) [facility] Start: 06-28-2021 Hemoglobin A1c/Hemoglobin.total in Blood HBA1C [facility] Start: 04-27-2021 COVID-19 VACCINE (4 - Booster for Pfizer series) COVID-19 VACCINE (4 - Booster for Pfizer series) [facility] Start: 02-17-2021 ADVANCE DIRECTIVE DISCUSSION ADVANCE DIRECTIVE DISCUSSION [facility] Start: 02-17-2021 DEPRESSION ASSESSMENT DEPRESSION ASS ESSMENT [facility] Start: 03-10-2020 Mammography [facility] Start: 03-10-2020 Screening for malign ant neoplasm of breast Mammogram Screening [facility] Start: 12-05-2019 Colonoscopy COLONOSCOPY [facility] Start: 12-05-2019 COLORECTAL CANCER SCREENING COLORECTAL CANCER SCREENING [facility] Start: 07-15-2019 Adult depression screening assessment DEPRESSION SCREENING [facility] Start: 08-29-2012 SHINGRIX VACCINE (2 of 3) GUTIERRES GRIX VACCINE (2 of 3) [facility] Start: 2009 Hepatitis B Vaccine (1 of 3 - Risk 3-dose series) Hepatitis B Vaccine (1 of 3 - Risk 3-dose series) [facility] Start: 2009 RSV Vaccine (1 - 1-d ose 60+ series) RSV Vaccine (1 - 1-dose 60+ series) [facility] Start: 1994 COLOGUARD (FIT-DNA) COLOGUARD (FIT-D NA) [facility] Start: [address] COLONOGRAPHY [facility] Start: 1994 FECAL OCCULT BLOOD FECAL OCCULT BLOO D [facility] Start: 1994 Screening for malign ant neoplasm of colon [facility] Start: 1994 SIGMOIDOSCOPY SIGMOIDOSCOPY [facility] Start: 08-15-1979 Zoledronic acid therapy ALPHA- 1 ANTITRYPSIN DEFICIENCY SCREENING [facility] Start: 1968 Urine microalbumin profile [facility] Start: 08-15-1967 Anxiety Screening Anxiety Screening [facility] Start: 08-15-1967 BP CONTROLLED (<130/80) BP CONTROLLE D (<130/80) [facility] Start: 08-15-1967 Depression Screening Depression Scre ening [facility] Start: 08-15-1959 3 comp foot exam completed DIABETIC FOOT EXAM [facility] Start: 08-15-1959 Hepatitis B screening URINE AL BUMIN:CREATININE RATIO [facility] Start: 08-15-1959 Hepatitis C antibody , confirmatory test DILATED RETINAL EXAM [facility] Start: 08-15-1955 PNEUMOCOCCAL: 65+ (1 - PCV) PNEUMOCOCCAL: 65+ (1 - PCV) [facility] CT Chest for screeni ng WO contrast CT LUNG SCREEN WO IVCON Radiology Routine Personal history of tobacco use, presenting hazards to health 07/23/2023 12:56 PM EDT [facility] Work Phone: End: 03-03-2025 CT Chest for screening WO contrast CT LUNG SCREEN WO IVCON Radiology Routine Encounter for screening for lung cancer Former tobacco use 1 Occurrences starting 02/02/2024 until 03/03/2025 [facility] Work Phone: Comment on above: 1 Occurrences starti ng 02/02/2024 until 03/03/2025 End: 08-30-2024 CT Lung parenchyma WO contrast CT LUNG FOLLOWUP WO IVCON Radiology Routine Lung nodules 1 Occurrences starting 08/01/2023 until 08/30/2024 [facility] Work Phone: Comment on above: 1 Occurrences starti ng 08/01/2023 until 08/30/2024 CT Lung parenchyma W O contrast CT LUNG FOLLOWUP WO IVCON Radiology Routine Lung nodules 02/02/2024 1:58 PM EST [facility] Work Phone: End: 01-13-2023 Ct thorax w/o contrast material CT LUNG FOLLOWUP WO IVCON Radiology Routine Lung nodules 1 Occurrences starting 12/14/2021 until 01/13/2023 [facility] Work Phone: Comment on above: 1 Occurrences starti ng 12/14/2021 until 01/13/2023 End: 12-20-2021 Ct thorax w/o contrast material [facility] Work Phone: Comment on above: 1 Occurrences starti ng 12/20/2021 until 12/20/2021 End: 02-19-2025 DBT Breast - bilateral screening KATINA SCREENING W RODDY Radiology Routine Encounter for screening mammogram for breast cancer 1 Occurrences starting 01/21/2024 until 02/19/2025 [facility] Work Phone: Comment on above: 1 Occurrences starti ng 01/21/2024 until 02/19/2025 End: 12-29-2022 Dxa bone density study 1/> sites axial skel DXA-AXIAL SKELETON Radiology Routine Asymptomatic postmenopausal status 1 Occurrences starting 11/29/2021 until 12/29/2022 [facility] Work Phone: Comment on above: 1 Occurrences starti ng 11/29/2021 until 12/29/2022 Hemoglobin A1c in Blood HGB A1C Lab Routine Type 2 diabetes mellitus without complication, without long-term current use of insulin (HCC) 11/29/2021 1:25 PM EDT [facility] Work Phone: End: 03-22-2023 KATINA SCREENING KATINA SCREENING Radiology Routine Encounter for screening mammogram for breast cancer 1 Occurrences starting 02/20/2022 until 03/22/2023 [facility] Work Phone: Comment on above: 1 Occurrences starti ng 02/20/2022 until 03/22/2023 End: 02-21-2024 KATINA SCREENING KATINA SCREENING Radiology Routine Encounter for screening mammogram for breast cancer 1 Occurrences starting 01/22/2023 until 02/21/2024 [facility] Work Phone: Comment on above: 1 Occurrences starti ng 01/22/2023 until 02/21/2024 Natriuretic peptide. B prohormone N-Terminal [Mass/volume] in Serum or Plasma [facility] Patient Education AFib Preventin g Stroke AFib [facility] Work Phone: Patient referral [facility] Work Phone: End: 04-10-2022 Screening colonoscopy COLONOSCOPY SCREENING Endoscopy Routine Screening for colon cancer Personal history of colonic polyps 1 Occurrences starting 04/10/2021 until 04/10/2022 [facility] Work Phone: Comment on above: 1 Occurrences starti ng 04/10/2021 until 04/10/2022 SURGICAL PATHOLOGY [facility] Work Phone: Comment on above: Release Upon Orderin g for 1 Occurrences starting 08/27/2021, 1 completed Troponin T.cardiac [Mass/volume] in Serum or Plasma by High sensitivity method [facility] End: 06-27-2025 US Abdomen RUQ US ABD RIGHT UPPER QUADRANT Radiology Routine Fatty liver 1 Occurrences starting 05/28/2024 until 06/27/2025 [facility] Comment on above: 1 Occurrences starti ng 05/28/2024 until 06/27/2025 End: 09-28-2024 US Carotid arteries - bilateral US CAROTID ARTERIES [facility] Lab Routine Carotid stenosis, asymptomatic, bilateral Left subclavian artery occlusion 1 Occurrences starting 09/29/2023 until 09/28/2024 [facility] Work Phone: Comment on above: 1 Occurrences starti ng 09/29/2023 until 09/28/2024 End: 11-03-2024 US Carotid arteries - bilateral US CAROTID ARTERIES [facility] Lab Routine Carotid stenosis, asymptomatic, bilateral 1 Occurrences starting 11/04/2023 until 11/03/2024 [facility] Work Phone: Comment on above: 1 Occurrences starti ng 11/04/2023 until 11/03/2024 End: 08-03-2025 US Carotid arteries - bilateral US CAROTID ARTERIES [facility] Lab Routine Left subclavian artery occlusion Carotid stenosis, asymptomatic, bilateral 1 Occurrences starting 08/03/2024 until 08/03/2025 [facility] Work Phone: Comment on above: 1 Occurrences starti ng 08/03/2024 until 08/03/2025 End: 09-28-2024 US Lower extremity artery - bilateral PVR LEG [facility] V[facility] Lab Routine PVD (peripheral vascular disease) ([facility]) 1 Occurrences starting 09/29/2023 until 09/28/2024 [facility] Comment on above: 1 Occurrences starti ng 09/29/2023 until 09/28/2024 End: 08-07-2024 US Upper extremity artery - bilateral US ARM ARTERIAL [facility] Lab Routine Blood pressure alteration Type 2 diabetes mellitus with hyperglycemia, without long-term current use of insulin ([facility]) 1 Occurrences starting 08/08/2023 until 08/07/2024 [facility] Work Phone: Comment on above: 1 Occurrences starti ng 08/08/2023 until 08/07/2024 End: 11-03-2024 US.doppler Extremity arteries - bilateral for physiologic artery study PVR ANK PRESS [facility] V[facility] Lab Routine PVD (peripheral vascular disease) (HCC) 1 Occurrences starting 11/04/2023 until 11/03/2024 [facility] Comment on above: 1 Occurrences starti ng 11/04/2023 until 11/03/2024 [facility] Immunizations Immunization Date Immunization Notes Care Provider Branden ybarra 01-02-2024 influenza, high dose seasonal, preservative-free Lorenza Hadodie SOIL SCIENTIST.DRYING TUNNEL OPERATOR Work Phone: [facility] 01-02-2024 influenza virus vacc ine, unspecified formulation Vivienne Izquierdo MA [facility] 06-15-2023 zoster vaccine recombinant Rober Rubio MD Work Phone: [facility] 03-14-2023 zoster vaccine recombinant Rober Rubio MD Work Phone: [facility] 02-21-2023 respiratory syncytia l virus (RSV) vaccine, adjuvanted (AREXVY) Rober Rubio MD Work Phone: [facility] 11-27-2022 COVID-19 vaccine, ag e 12+ yr, 2022- season (MODERNA) Rober Rubio MD Work Phone: [facility] 11-27-2022 influenza (aIIV4) vaccine, age 65+ yr, quadrivalent, PF (FLUAD QUAD) Rober Rubio MD Work Phone: [facility] 11-27-2022 influenza (HD-IIV4) vaccine, age 65+ yr, high dose, quadrivalent, PF (FLUZONE HIGH-DOSE) Rober Rubio MD Work Phone: [facility] 11-27-2022 influenza, injectabl e, quadrivalent, preservative free [facility] 11-27-2022 influenza virus vacc ine, unspecified formulation Rober Rubio MD Work Phone: [facility] 02-01-2022 Covid Moderna Bivale nt Booster Rober Rubio MD Work Phone: [facility] 02-01-2022 COVID-19 booster vaccine, age 12+ yr, bivalent (PFIZER-BIONTECH) Rober Rubio MD Work Phone: [facility] 01-01-2022 Influenza High-Dose Quadrivalent Rober Rubio MD Work Phone: [facility] 01-01-2022 influenza, high dose seasonal, preservative-free Sandra Taylor APRN.[facility] Work Phone: [facility] 03-02-2021 COVID-19 vaccine, ag e 12+ yr (PFIZER-BIONTECH - PURPLE TOP) Rober Rubio MD Work Phone: [facility] 01-02-2021 influenza, high dose seasonal, preservative-free Rober Rubio MD Work Phone: [facility] 01-02-2021 influenza, high-dose , quadrivalent vaccine (FLUZONE HIGH DOSE QUADRIVALENT) Rm Lo MD Work Phone: [facility] 05-18-2020 COVID-19 vaccine, ag e 12+ yr (PFIZER-BIONTECH - PURPLE TOP) Rober Rubio MD Work Phone: [facility] 04-27-2020 COVID-19 vaccine, ag e 12+ yr (PFIZER-BIONTECH - PURPLE TOP) Rober Rubio MD Work Phone: [facility] Work Phone: 12-14-2019 influenza, high-dose , quadrivalent vaccine (FLUZONE HIGH DOSE QUADRIVALENT) Rober Rubio MD Work Phone: [facility] Work Phone: 12-09-2018 Influenza, high dose seasonal Dr. Rober Rubio MD Work Phone: [facility] 12-09-2018 influenza, high dose seasonal, preservative-free Rober Rubio MD Work Phone: [facility] 02-19-2018 pneumococcal polysaccharide vaccine, 23 valent Rober Rubio MD Work Phone: [facility] 11-19-2017 Influenza, high dose seasonal Dr. Rober Rubio MD Work Phone: [facility] 11-19-2017 influenza, high dose seasonal, preservative-free Rober Rubio MD Work Phone: [facility] 11-13-2017 Influenza, high dose seasonal Dr. Rober Rubio MD Work Phone: [facility] 11-13-2017 influenza, high dose seasonal, preservative-free [facility] 12-09-2015 Influenza, high dose seasonal Dr. Rober Rubio MD Work Phone: [facility] 12-09-2015 influenza, high dose seasonal, preservative-free Rm Lo MD Work Phone: [facility] 09-12-2015 pneumococcal conjuga te vaccine, 13 valent Rober Rubio MD Work Phone: [facility] 12-08-2014 Influenza, high dose seasonal Dr. Rober Rubio MD Work Phone: [facility] 12-08-2014 influenza, high dose seasonal, preservative-free Rober Rubio MD Work Phone: [facility] 12-10-2013 influenza nasal, unspecified formulation Rm Lo MD Work Phone: [facility] 12-10-2013 influenza, injectabl e, quadrivalent, preservative free [facility] 12-10-2013 influenza, seasonal, injectable Rober Rubio MD Work Phone: [facility] 11-17-2012 influenza virus vacc ine, unspecified formulation Rober Rubio MD Work Phone: [facility] 07-04-2012 zoster vaccine, live Rober Rubio MD Work Phone: [facility] 12-18-2009 pneumococcal polysaccharide vaccine, 23 valent Rober Rubio MD Work Phone: [facility] 12-18-2009 pneumococcal vaccine , unspecified formulation Rm Lo MD Work Phone: [facility] 04-22-2008 influenza virus vacc ine, whole virus Rm Lo MD Work Phone: [facility] 04-22-2008 influenza, injectabl e, quadrivalent, preservative free [facility] Payers Date Payer Category Payer Self-pay 2021 Private Health Insurance [id number] 2021 Unknown [id number] 2015 Private Health Insurance [id number] 2014 Medicare MEDICARE MEDICAR E A AND B [id number] 2014-Present [phone] [facility] [place] [address] Medicare [id number] 2014 Medicare [id number] 2014 Medicare [id number] 2011 Unknown [id number] Unknown [id number] Unknown [id number] Unknown [id number] Unknown [id number] Unknown [id number] Unknown [id number] Unknown [id number] Unknown [id number] Unknown [id number] Social History Date Type Detail Facility Start: 12-26-2011 End: 09-20-2024 Tobacco smoking status NHIS Ex-smoker [facility] Work Phone: Start: 02-17-1970 End: 12-27-2010 History of tobacco use Current smoker [facility] Work Phone: Start: 02-17-1970 End: 12-27-2010 History of tobacco use Cigarette Smoker [facility] Work Phone: Start: 12-26-2011 End: 02-24-2023 Cigarettes smoked current (pack per day) - Reported 0.75 [facility] Start: 12-26-2011 End: 10-28-2023 Tobacco use and exposure Smokeless tobacco non-user [facility] Work Phone: Start: 04-10-2021 End: 09-01-2024 Alcohol intake Current drinker of alcohol (finding) [facility] Start: 03-15-2021 History SDOH Alcohol Frequency 5 [facility] Start: 03-15-2021 History SDOH Alcohol Std Drinks 98 [facility] Start: 03-15-2021 History SDOH Alcohol Binge 1 [facility] Start: 03-15-2021 History SDOH Social Connections Phone 4 [facility] Start: 03-15-2021 History SDOH Social Connections Ep[employer]op[employer] 3 [facility] Start: 03-15-2021 History SDOH Physica l Activity DPW 0 [facility] Start: 03-15-2021 History SDOH Housing Homeless Last Year 2 [facility] Start: 1950 Sex Assigned At Not on file C [facility] Start: 12-21-2019 End: 01-15-2022 Exposure to SARS-CoV-2 (event) Not sure [facility] Start: 11-29-2021 Alcohol Comment 2 galsses of w ine 1-2 times per week [facility] Start: 03-15-2021 End: 02-24-2023 Social connection and isolation panel [facility] How often do you get together with friends or relatives? Patient refused [facility] Do you belong to any clubs or organizations such as episcopal groups, unions, fraternal or athletic groups, or school groups? Yes [facility] Are you now , , , , never or living with a partner? [facility] How often to you hav e a drink containing alcohol? 4 or more times a week [facility] How often do you hav e 6 or more drinks on 1 occasion? Never [facility] Do you feel stress - tense, restless, nervous, or anxious, or unable to sleep at night because your mind is troubled all the time - these days [OSQ] Not at all [facility] (I/We) worried wheth er (my/our) food would run out before (I/we) got money to buy more. Never true [facility] At any time in the p ast 12 months, were you homeless or living in usp [including now]? No [facility] Start: 01-31-2023 End: 01-31-2023 Tobacco smoking status NHIS Unknown if ever smoked [facility] Start: 1950 Sex Assigned At Female W [facility] Medical Equipment Procedure Code Equipment Code Equipment Original Text Equipment Identifier Dates [id number], [id number] Start: 01-16-2021 Comment on above: Test blood sugar(s) 1 times daily. Dx: Type 2 DM - Controlled E11.9 Insulin: Yes Test blood sugar(s) 1 times daily. Dx: Type 2 DM - Controlled E11.9 Insulin: No Goals Date Patient Goal Desired Activity /State Personal health goal Functional Status Date Assessment Result Facility 02-05-2023 Functional status Ambulates;Jaren r;Bathroom Privilege [facility] Work Phone: 07-21-2014 Are you deaf, or do you have serious difficulty hearing No 07/21/2014 1:03 PM Stacey Lopes LPN No [facility] 07-21-2014 Are you blind, or do you have serious difficulty seeing, even when wearing glasses No 07/21/2014 1:03 PM Stacey Lopes LPN No [facility] 07-21-2014 Do you have serious difficulty walking or climbing stairs No 07/21/2014 1:03 PM Stacey Lopes LPN No [facility] 07-21-2014 Do you have difficul ty dressing or bathing No 07/21/2014 1:03 PM EDT Stacey Cartwright LPN No [facility] 07-21-2014 Because of a physica l, mental, or emotional condition, do you have difficulty doing errands alone such as visiting a physician's office or shopping No 07/21/2014 1:03 PM EDT Stacey Cartwright LPN No [facility] Mental Status Date Assessment Result Facility 02-05-2023 Cognitive function Voice/Name [facility] Work Phone: 07-21-2014 Because of a physica l, mental, or emotional condition, do you have serious difficulty concentrating, remembering, or making decisions No 07/21/2014 1:03 PM EDT Stacey Cartwright LPN No [facility] Clinical Notes 12-09-2014 to 09-20-2024 Note Date & Type Note Facility 09-20-2024 Discharge summary [facility] 09-20-2024 Radiology Diagnostic study note [facility] Imaging Services [address] [place] [address] Chest 1 View (Portable) MR#: [id number] Acct: [id number] Name: EMILY LOPEZ Rep #: [id number] : 1950 F 74 From: Jayjay Baugh MD PCP: Dr. Rober Rubio MD Status: PRE E R Study:Chest 1 View (Portable) Date of Exam: 09/20/24 Exam# [id number] Ordering Dr: [place] ,Ed P. PROCEDURE: CHEST 1 VIEW (PORTABLE) 09/20/2024 REASON FOR EXAM: SOB TECHNIQUE: Frontal view of the chest. COMPARISON: Chest x-ray 01/31/2023. FINDINGS: Hardware: None. Heart: Mild cardiomegaly. Lungs: Airspace opacities in the lower lungs may represent pulmonary edema or pneumonia. Obliteration of the costophrenic angles consistent with pleural effusions. No pneumothorax. Bones: No acute bony abnormalities. RAD/Chest 1 View (Portable) IMPRESSION: Airspace opacities in the lower lungs may represent pulmonary edema, CHF or pneumonia. Obliteration of the costophrenic angles consistent with pleural effusions. Reading Location: [facility] CC: Dr. Rober Rubio MD; ED PHYSICIAN PROVIDER ~ Film Casting Operator: Signed [facility] 09-20-2024 Discharge summary Note Date/Time September 20, 2024 4:46pm [facility] Medical Records Department [address] [place] [address] Emergency Department Summary 09/20/24 MR#: [id number] Acct: [id number] Name: EMILY LOPEZ Rep #:[id number] : 1950 74 From: Joshua Castañeda MD PCP: Dr. Rober Rubio MD Status:REG E R Location: ED HPI History of Present Illness Chief Complaint: Shortness of Breath Informant: patient and family Onset/Context/Timing Onset: Yesterday Context: sudden (Per patient. Son thought it may have started a day or 2 before.) Timing: Continuous Quality: Positive for Dyspnea on exertion, Orthopnea (Stable 3 pillow orthopnea since 2010) and Wheezing; Negative for PND Current Severity: Mild Maximum Severity: Severe Worsened by: Exertion, Lying flat and Coughing Relieved by: Nothing Associated Symptoms cough; Negative for rhinorrhea, post nasal drip, ear pain, fever, sore throat, subjective, chills, sweats, clear sputum, white sputum, yellow sputum or green sputum Chest Pain: Positive for None Narrative Narrative: Patient is a 74-year-old woman with history of hypertension, diabetes, hyperlipidemia, congestive heart failure on anticoagulant. She presents becauseof increased shortness of breath. She denies fever, chills night sweats. She denies rhinorrhea or congestion. She has chronic postnasal drainage. She denies sore throat. She has a cough she states she always has a cough. The cough is slightly worse. Past weekend she had ill contacts. She was out of birthday green party. She has no history of PE or DVT. She informed me as I was walking out that she has a history of COPD. She is on a rescue inhaler. Reviewof medical list indicates she is on a anticoagulant. She states she was placed on it does not know why. Son believes she was placed on it because of history of PE. She denies abdominal pain, nausea, vomiting or diarrhea. She denies dysuria, frequency, urgency or hematuria. PE Risk Factors: Positive for Prior DVT or PE and Recent travel; Negative for Cancer, OCP + Smoking + > 35, Recent immobilization or Recent surgery Prior similar symptoms: No Recent Illness/Hospitalization: No [facility] Medical History Legally blind COPD (chronic obstructive pulmonary disease) Obesity Diabetes Hypercholesteremia HTN (hypertension) Pneumonia COVID Home Medications ?Medication ?Instructions ?Recorded ?Last Taken ?Type albuterol sulfate 90 mcg/actuation 2 puff inhalation Q 4H PRN PRN 03/08/20 Unknown History aerosol inhaler Wheezing amlodipine 10 mg tablet 10 mg PO DAILY 03/08/20 Unkn own History aspirin 81 mg tablet,delayed 81 mg PO DAILY@0800 03/08 Unknown History release atorvastatin 40 mg tablet 40 mg PO QHS 03/08/20 Unknow n History lisinopril 40 mg tablet 40 mg PO DAILY 03/08/20 Unkn own History vitamins A,C,Q-lvvu-ondyhp 2,148 1 ea PO DAILY 1 Unknown History mcg-113 mg-45 mg-17.4 mg tablet fluticasone fur. 100 mcg-umeclid 1 inh inhalation Q24H 01/31/23 Unknown History 62.5 mcg-vilant 25 mcg inhalat.powder (Trelegy Ellipta) metformin 500 mg tablet 500 mg PO DAILY 01/31/23 Unk nown History Held on 02/05/23. Instructions: Resume on 02/10/23. apixaban 5 mg tablet (Eliquis) 5 mg PO BID #60 tabs Unknown Rx metoprolol tartrate 50 mg tablet 50 mg PO BID #60 tabs 02/05/23 Unknown Rx oseltamivir 30 mg capsule 30 mg PO BID #1 cap 02/05/23 Unknown Rx Allergy/AdvReac Type Severity Reaction Status Date / Time venom-honey bee Allergy Severe Swelling Verified 09/20/24 14:07 codeine Allergy Itching Verified 09/20/24 14:07 Penicillins (PCN) Allergy Itching Verified 09/20/24 14:07 Sulfa (Sulfonamide Allergy Itching Verified 09/20/24 14:07 Antibiotics) Tetanus Vaccines and Toxoid Allergy NEEDS Verified 09/20/24 14:07 FOLLOW-UP Family History Mother Heart failure Father Heart failure Social History (Updated 09/20/24 @ 15:[address] Joshua Castañeda MD) household members: family Smoking Status: Former smoker ROS ROS ED Constitutional Constitutional ED: Denies chills, fever(s) or sweats Eyes Eyes: Reports other Details: Patient is legally blind. ENT ENT ED: Denies ear pain, rhinorrhea or sore throat Cardiovascular Cardiovascular: Reports orthopnea; Denies chest pain, palpitations, paroxysmal nocturnal dyspnea or racing heartbeat Respiratory/Chest Respiratory/Chest: Reports cough, dyspnea, dyspnea on exertion and orthopnea; Denies paroxysmal nocturnal dyspnea or sputum Gastrointestinal Gastrointestinal: Denies abdominal pain, melena, nausea or vomiting Genitourinary Genitourinary ED: Denies dysuria, hematuria or urinary frequency Musculoskeletal Musculoskeletal: Denies arthralgias or myalgias Integumentary Denies rash Neurologic Neurologic: Denies headache(s), paresthesias or weakness Psychiatric Psychiatric: Denies anxiety or depression Hematologic/Lymphatic Hematologic/Lymphatic: Denies easy bleeding or easy bruising EXAM Physical Exam Const Vital Signs: 09/20/24 14:02 09/20/24 14:08 09/20/24 14:39 Temperature 98.5 F Temperature Source Oral Pulse Rate 115 H Respiratory Rate 20 H Respiratory Effort Respiratory Pattern Blood Pressure 123/52 H Blood Pressure Mean 75 Pulse Ox 84 92 Oxygen Delivery Method Room Air Nasal Cannula Oxygen Flow Rate (L/min) 2 2 09/20/24 14:40 09/20/24 14:42 09/20/24 15:01 Temperature Temperature Source Pulse Rate Respiratory Rate Respiratory Effort Short of Breath Respiratory Pattern Tachypnea Blood Pressure 111/50 L Blood Pressure Mean 70 Pulse Ox 93 Oxygen Delivery Method Nasal Cannula Nasal Cannula Oxygen Flow Rate (L/min) 2 2 09/20/24 15:05 09/20/24 15:20 09/20/24 16:00 Temperature 98.5 F Temperature Source Oral Pulse Rate 107 H 101 H Respiratory Rate 25 H 22 H Respiratory Effort Respiratory Pattern Blood Pressure 158/62 H 113/56 L Blood Pressure Mean 94 75 Pulse Ox 93 Oxygen Delivery Method Nasal Cannula Oxygen Flow Rate (L/min) 2 09/20/24 16:22 Temperature Temperature Source Pulse Rate 112 H Respiratory Rate 26 H Respiratory Effort Respiratory Pattern Blood Pressure Blood Pressure Mean Pulse Ox Oxygen Delivery Method Oxygen Flow Rate (L/min) Positive well nourished and well developed Constitutional Narrative: Vital signs remarkable for pulse ox 84% on room air. She is tachycardic and tachypneic. She is breathing quicker than 20 times a minute. There is minimal use of accessory muscles. On 2 L she is saturating 92% when I examined her. General Appearance ED: well developed and pallor HEENT Reports dry mucous membranes HEENT Narrative: Head is atraumatic and normocephalic. Ears normal. Nares patent. Posterior pharynx is normal. Uvula is midline. There is no deviation tongue with protrusion. Mouth ED: Yes dry mucous membranes Mouth: dry mucous membranes Eyes PERRL and EOMs intact bilaterally General Eye ED: Yes pale conjunctiva; Negative for scleral icterus Neck no lymphadenopathy, supple, no meningeal signs and no JVD Resp No normal respiratory effort and No clear to auscultation bilaterally Resp Narrative: Rales bilaterally worse left. There is egophony increased vocal fremitus on theleft lower and mid lung field. There is slight wheezing noted bilaterally with forced expiration. Cardio regular rhythm, S1 normal heart sound, S2 normal heart sound and no murmurs Rate: tachycardic GI non-tender and no masses Auscultation: hypoactive bowel sounds Palpation: soft Back/Spine no CVA tenderness Extremity Extremity Narrative: There is mild edema of the lower extremities. Neuro oriented x3, CN's II-XII intact bilaterally and no sensory deficits noted Cable Coma Scale: document GCS findings Spontaneous Obeys Commands Oriented 15 Sensorium / Orientation: alert Motor Exam: strength 5/5 throughout Psych mental status grossly normal Skin no wounds and skin turgor normal General Skin Exam: pallor; Negative for jaundice Sepsis Attestation Sepsis Alert: Yes Date exam was performed: 09/20/24 Time exam was performed: 16:00 Possible Source of Sepsis: Pulmonary Sepsis Organ Dysfunction Criteria Present: Lactic Acid > 2 mmol/L Fluid Resuscitation Fluid resuscitation indicated?: Yes (No fluids were given since patient is not hypotensive and there is concern that she may have heart failure.) MDM MDM MDM Narrative Medical decision making narrative: Clinically patient has pneumonia. Nurse triage orders were initiated. Additional orders were added by me. She will receive DuoNeb and albuterol. Since clinically she has pneumonia in my opinion she has pneumonia on x-ray willstart on antibiotics. She has itching with penicillin and sulfa. Will treat with Rocephin since this is not a significant allergy and azithromycin. Since she has history of COPD and is wheezing we will also administer Solu-Medrol. Patient was informed she will require admission to the hospital. ABG was obtained to assess acid-base status and more importantly CO2. Since the radiologist is reading possible pulmonary edema versus CHF versus pneumonia we will obtain a BMP since she does report history of CHF. History & Record Review Additional record(s) reviewed:: Prior outpatient record (Pulmonary consult February 13, 2023 for acute bronchitis and bronchospasm. Note was authored by Catie Huang. She was admitted in January 2023 for respiratory issues. Discharge summary authored by Dr. Hari Iniguez was reviewed.) and Prior labs (Prior H&H obtained February 01, 2023 was 14.6 and 43.2.) Lab Data Attestation: I reviewed the patient's lab results. Lab results narrative: White count is elevated at 16.4. H&H is 6.9 and 23.9. In light of the type andcross for 2 units of blood. This is probably contributing to her dyspnea. Troponin slightly elevated at 29. Lactate elevated 3.0. Glucose elevated 210 with a normal CO2 of 21.6 and anion gap of 16. Labs: Laboratory Results - last 24 hr 09/20/24 09/20/24 09/20/24 14:45 15:15 15:30 WBC 16.4 H RBC 2.73 L Hgb 6.9 L Hct 23.9 L MCV 87.5 MCH 25.3 L MCHC 28.9 L RDW Std Deviation 61.2 H RDW Coeff of Rashaad 19.5 H Plt Count 309 MPV 9.4 Immature Gran % (Auto) 0.800 Neut % (Auto) 87.1 H Lymph % (Auto) 3.5 L [place] % (Auto) 8.2 Eos % (Auto) 0.2 Baso % (Auto) 0.2 Absolute Neuts (auto) 14.3 H Absolute Lymphs (auto) 0.57 L Nucleated RBC % 0.2 Sodium 135 Potassium 4.3 Chloride 98 Carbon Dioxide 21.6 Anion Gap 16 H BUN 15 Creatinine 0.71 Estim Creat Clear Calc 61.72 Est GFR (MDRD) Non-Af 88 BUN/Creatinine Ratio 21.4 H Glucose 210 H Lactic Acid 3.0 H* Calcium 8.2 Troponin T High Sens 29 H Blood Type A POSITIVE Antibody Screen NEGATIVE Crossmatch See Detail Patient was told she will receive 1 unit of blood. Patient was reassessed at 1636. Her sat now is 90% on oxygen. ABG Data ABG results: ABG 09/20/24 15:37 Specimen Type ART Sample Site R Brach pH 7.48 H Bicarbonate Actual 26.5 H Total CO2 28 Base Excess 3 H O2 Saturation 92 L O2 % 2.0 ABG pCO2 35.6 ABG pO2 59 L O2 Delivery Device Cannula Vent Mode Not entered Radiography Diagnostic Testing: Clinical Impression(s) from Imaging Studies Chest X-Ray 09/20/24 14:30 IMPRESSION: Airspace opacities in the lower lungs may represent pulmonary edema, CHF or pneumonia. Obliteration of the costophrenic angles consistent with pleural effusions. Reading Location: [facility] Differential Diagnosis Chest pain/SOB: pulmonary embolism Reason(s) PE less likely: Positive for Other (History and physical exam is consistent with infection.) Management Discussion w/another healthcare provider: Hospitalist (Case was discussed with Dr. Hari Iniguez. Full admission to PCU) Critical Care Time Critical Care Time: Yes Critical care time (excluding procedures): 30-74 minutes (32), Including time spent: (History, physical, documentation, review of prior records, initiation oftreatment for community-acquired pneumonia, symptomatic anemia with blood transfusion), Discussing w/Patient &/or Family/Teacher Learning Disabled (Patient and son were informed of results. She also was informed that she will require blood.), Discussing w/Consultants and Arranging Admission or Transfer Discharge Plan Triage Chief Complaint: Shortness of Breath ED Provider: Joshua Castañeda Dx/Rx/DC Orders Clinical Impression: Community acquired pneumonia, HTN (hypertension), COPD (chronic obstructive pulmonary disease), Acute hypoxemic respiratory failure, Acidosis, lactic, Type 2 diabetes mellitus with hyperglycemia, without long-term current use of insulin, Acute bronchospasm, Elevated troponin, Symptomatic anemia, Signs and symptoms of anemia Prescriptions: No Action atorvastatin 40 MG tablet 40 mg PO QHS aspirin 81 MG tablet 81 mg PO DAILY@0800 amlodipine 10 MG tablet 10 mg PO DAILY albuterol sulfate 8.5 GM HFA aerosol inhaler 2 puff INHALATION Q4H PRN PRN (Reason: Wheezing) Patient Comments: TAKE 2 PUFFS BY MOUTH EVERY 4 HOURS NEEDED lisinopril 40 MG tablet 40 mg PO DAILY vitamins A,C,F-kvfq-twgrci 1 EACH tablet 1 ea PO DAILY metformin 500 mg tablet 500 mg PO DAILY Patient Comments: TAKE 1 TABLET BY MOUTH EVERY DAY WITH BREAKFAST Trelegy Ellipta 100-62.5-25 mcg blister with device 1 inh INHALATION Q24H Patient Comments: INHALE 1 PUFF INSTRUCTED ONCE DAILY. Eliquis 5 mg Tablet 5 mg PO BID Qty: 60 0RF metoprolol tartrate 50 mg Tablet 50 mg PO BID Qty: 60 0RF oseltamivir 30 mg Capsule 30 mg PO BID Qty: 1 0RF Primary Care Provider: Rober Rubio Referrals: Rober Rubio MD [Primary Care Provider] - Print Language: Senegalese What to do if you have Problems For any increased pain, shortness of breath, bleeding, nausea or vomiting, chestpain, or any unexpected problems, contact your Primary Care Provider. Call [facility] ([phone]) or report to the closest Emergency Room. Call 911 if necessary. 09/20/24 164 <Electronically signed by Joshua Castañeda MD> Cosigner Signature (if applicable): CC: Dr. Rober Rubio MD ~ Signed ADDENDUM by Dr. Joshua Castañeda MD on 09/20/24 at 1646 EKG reveals a sinus tachycardia rate of 109. Initially read by Dr. Grissom. OK interval is 176 ms. QS duration 68 ms. QT duration 116 ms. [place] is normal. Computer is reading nonspecific changes. There are nonspecific changes. She does have low voltage as well. 09/20/241645<Electronically signed by Joshua Castañeda MD> Cosigner Signature (if applicable): cc: Dr. Rober Rubio MD ~* Signed [facility] Work Phone: [phone]) 174-444707-16-2025 Instructions* Patient Instructions* Lorenza Vo APRN.[employer]YING [employer]NEL OPERATOR - 09/01/2024 2:24 PM EDT Follow up in a month Labs Restarted on maunjaro and metoprolol [facility] NoteHNO ID: [id number] Author: LORENZA VO APRN.[place] Service: ? Author Type: Nurse Practitioner Type: Progress Notes Filed: 09/01/2024 17:43 Note Text: This is a 74 year old female who presents today with: Patient presents with: Recheck: 1 month follow up HISTORY OF PRESENT ILLNESS: Emily Lopez is a 74 year old female with the past medical history of HTN, COPD, HLD, meniere's disease, and macular degeneration presents today for a Recheck: 1 month follow up on prescription. Pt states she gets winded when she is walking around, and gets dizzy- lightheadedness , feels heart flutter, and Shortness of Breath-walking causes sob to the patient. Going from cough to the bathroom gets winded. Patient states that it could be caused due to not taking Lipitor.Patient states this is more consistent, before it was on and off but now its pretty constant. Denies chest pain, fever, chills, double vision. HTN -Takes bp medication on time as prescribed -Denies chest pain -Pt states her right arm BP is higher than the left -Pt does not check BP at home, unable to read the result - Haven't been taking metoprolol the past 2 months, did not refill prescription COPD -Frequently feeling sob recently - Walking make sob worse Using albuterol bout 4 times daily. - Follows pulmonary HLD -Taking medications as prescribed Meniere's Disease - Pt states she is feeling lightheaded, room not spinning Chronic in nature. DM -Pt is on medications -Doesn't check blood glucose at home , unable to see the result Reports that she hasn't taken mounjaro in 2 months, as was out of medication and couldn't get refilled. Atrial fibrillation - Patient state she feels heart flutter (not new) - Follows cardiology PAST MEDICAL HISTORY: PAST MEDICAL HISTORY Diagnosis Date COPD (chronic obstructive pulmonary disease) (HCC) HTN (hypertension) 01/15/2012 Hyperlipidemia Macular degeneration Meniere's disease PAST SURGICAL HISTORY Procedure Laterality Date APPENDECTOMY CHOLECYSTECTOMY COLONOSCOPY 08/27/2021 repeat in 5 years COLONOSCOPY FLX DX W/COLLJ SPEC WHEN PFRMD 12/04/2016 Colonoscopy - regular villous adenoma recommended 3 year follow-up PAST SURGICAL HISTORY OF exploratory lap for endometriosis SURGERY (GENERAL SURGERY) CONSULT 1997 LEFT ARM SURGERY TONSILLECTOMY HX TOTAL ABDOM HYSTERECTOMY age 42 ALLERGIES Tetanus Vaccines And Toxoid, Codeine, Penicillins, Seasonal Allergies, and Sulfa (Sulfonamide Antibiotics) MEDICATIONS Current Outpatient Medications Medication Sig metFORMIN (GLUCOPHAGE) 500 mg tablet Take 1 tablet by mouth daily with breakfast. lisinopril (ZESTRIL) 20 mg tablet Take 1 tablet by mouth once daily. atorvastatin (LIPITOR) 80 mg tablet Take 1 tablet by mouth once daily. metoprolol succinate ER (TOPROL XL) 25 mg 24 hr tablet Take 1 tablet by mouth once daily. tirzepatide (MOUNJARO) 2.5 mg/0.5 mL pen injector Inject 2.5 mg subcutaneously one time a week. ergocalciferol 50,000 unit capsule (VITAMIN D2, DRISDOL) Take 1 capsule by mouth one time a week. TRELEGY ELLIPTA 100-62.5-25 mcg inhalation powder INHALE 1 PUFF INSTRUCTED ONCE DAILY. albuterol HFA (PROVENTIL HFA, VENTOLIN HFA) 90 mcg/actuation inhaler TAKE 2 PUFFS BY MOUTH EVERY 4 HOURS NEEDED apixaban (ELIQUIS) 5 mg tab(s) Take 1 tablet by mouth two times a day. amLODIPine (NORVASC) 10 mg tablet Take 1 tablet by mouth once daily. Lancets lancets Test blood sugar(s) 1 times daily. Dx: Type 2 DM - Controlled E11.9 Insulin: No (Patient not taking: Reported on 10/03/2023) blood sugar diagnostic (BLOOD GLUCOSE TEST) test strip Test blood sugar(s) 1 times daily. Dx: Type 2 DM - Controlled E11.9 Insulin: Yes (Patient not taking: Reported on 10/03/2023) vit A,C,I-Nkgq-Fgxheu (PRESERVISION AREDS) 7,160-113-100 wqko-fb-mudr tab Take 2 tablets by mouth. aspirin, enteric coated (ASPIRIN LOW DOSE) 81 mg EC tablet Take 1 tablet by mouth once daily. No current facility-administered medications for this visit. FAMILY HISTORY Problem Relation Age of Onset Diabetes Mother Thyroid Mother Diabetes Father COPD Father smoker Diabetes Sister Bipolar disorder Sister Bipolar disorder Daughter other (10 grandchildren) Grandchild Cancer No Family History Social History Tobacco Use Smoking status: Former Current packs/day: 0.00 Average packs/day: 0.8 packs/day for 40.8 years (30.6 ttl pk-yrs) Types: Cigarettes Start date: 02/17/1970 Quit date: 11/26/2010 Years since quittin.7 Smokeless tobacco: Never Vaping Use Vaping status: Never Used Substance Use Topics Alcohol use: Yes Comment: 2 galsses of wine 1-2 times per week Drug use: No REVIEW OF SYSTEMS PAIN ASSESSMENT: Negative for pain, history of chronic pain, or current treatment for a chronic pain condition. GENERAL: No weight loss, malaise or fevers RESPIRATORY: Negative for hemoptysis, positive for (more content not included)...[facility]07-16-2025 History of Present illness Narrative* Lorenza Vo APRN.[facility] - 09/01/2024 1:14 PM EDT This is a 74 year old female who presents today with: Patient presents with: Recheck: 1 month follow up HISTORY OF PRESENT ILLNESS: Emily Lopez is a 74 year old female with the past medical history of HTN, COPD, HLD, meniere's disease, and macular degeneration presents today for a Recheck: 1 month follow up on prescription. Pt states she gets winded when she is walking around, and gets dizzy- lightheadedness , feels heart flutter, and Shortness of Breath-walking causes sob to the patient. Going from cough to the bathroom gets winded. Patient states that it could be caused due to not taking Lipitor.Patient states this is more consistent, before it was on and off but now itspretty constant. Denies chest pain, fever, chills, double vision. HTN -Takes bp medication on time as prescribed -Denies chest pain -Pt states her right arm BP is higher than the left -Pt does not check BP at home, unable to read the result - Haven't been taking metoprolol the past 2 months, did not refill prescription COPD -Frequently feeling sob recently - Walking make sob worse Using albuterol bout 4 times daily. - Follows pulmonary HLD -Taking medications as prescribed Meniere's Disease - Pt states she is feeling lightheaded, room not spinning Chronic in nature. DM -Pt is on medications -Doesn't check blood glucose at home , unable to see the result Reports that she hasn't taken mounjaro in 2 months, as was out of medication and couldn't get refilled. Atrial fibrillation - Patient state she feels heart flutter (not new) - Follows cardiology PAST MEDICAL HISTORY: PAST MEDICAL HISTORY Diagnosis Date COPD (chronic obstructive pulmonary disease) (HCC) HTN (hypertension) 01/15/2012 Hyperlipidemia Macular degeneration Meniere's disease PAST SURGICAL HISTORY Procedure Laterality Date APPENDECTOMY CHOLECYSTECTOMY COLONOSCOPY 08/27/2021 repeat in 5 years COLONOSCOPY FLX DX W/COLLJ SPEC WHEN PFRMD 12/04/2016 Colonoscopy - regular villous adenoma recommended 3 year follow-up PAST SURGICAL HISTORY OF exploratory lap for endometriosis SURGERY (GENERAL SURGERY) CONSULT 1997 LEFT ARM SURGERY TONSILLECTOMY HX TOTAL ABDOM HYSTERECTOMY age 42 ALLERGIES Tetanus Vaccines And Toxoid, Codeine, Penicillins, Seasonal Allergies, and Sulfa (Sulfonamide Antibiotics) MEDICATIONS Current Outpatient Medications Medication Sig metFORMIN (GLUCOPHAGE) 500 mg tablet Take 1 tablet by mouth daily with breakfast. lisinopril (ZESTRIL) 20 mg tablet Take 1 tablet by mouth once daily. atorvastatin (LIPITOR) 80 mg tablet Take 1 tablet by mouth once daily. metoprolol succinate ER (TOPROL XL) 25 mg 24 hr tablet Take 1 tablet by mouth once daily. tirzepatide (MOUNJARO) 2.5 mg/0.5 mL pen injector Inject 2.5 mg subcutaneously one time a week. ergocalciferol 50,000 unit capsule (VITAMIN D2, DRISDOL) Take 1 capsule by mouth one time a week. TRELEGY ELLIPTA 100-62.5-25 mcg inhalation powder INHALE 1 PUFF INSTRUCTED ONCE DAILY. albuterol HFA (PROVENTIL HFA, VENTOLIN HFA) 90 mcg/actuation inhaler TAKE 2 PUFFS BY MOUTH EVERY 4 HOURS NEEDED apixaban (ELIQUIS) 5 mg tab(s) Take 1 tablet by mouth two times a day. amLODIPine (NORVASC) 10 mg tablet Take 1 tablet by mouth once daily. Lancets lancets Test blood sugar(s) 1 times daily. Dx: Type 2 DM - Controlled E11.9 Insulin: No (Patient not taking: Reported on 10/03/2023) blood sugar diagnostic (BLOOD GLUCOSE TEST) test strip Test blood sugar(s) 1 times daily. Dx: Type 2 DM - Controlled E11.9 Insulin: Yes (Patient not taking: Reported on 10/03/2023) vit A,C,M-Qapl-Xqrvua (PRESERVISION AREDS) 7,160-113-100 cfen-ix-qzjq tab Take 2 tablets by mouth. aspirin, enteric coated (ASPIRIN LOW DOSE) 81 mg EC tablet Take 1 tablet by mouth once daily. No current facility-administered medications for this visit. FAMILY HISTORY Problem Relation Age of Onset Diabetes Mother Thyroid Mother Diabetes Father COPD Father smoker Diabetes Sister Bipolar disorder Sister Bipolar disorder Daughter other (10 grandchildren) Grandchild Cancer No Family History Social History Tobacco Use Smoking status: Former Current packs/day: 0.00 Average packs/day: 0.8 packs/day for 40.8 years (30.6 ttl pk-yrs) Types: Cigarettes Start date: 02/17/1970 Quit date: 11/26/2010 Years since quittin.7 Smokeless tobacco: Never Vaping Use Vaping status: Never Used Substance Use Topics Alcohol use: Yes Comment: 2 galsses of wine 1-2 times per week Drug use: No REVIEW OF SYSTEMS PAIN ASSESSMENT: Negative for pain, history of chronic pain, or current treatment for a chronic pain condition. GENERAL: No weight loss, malaise or fevers RESPIRATORY: Negative for hemoptysis, positive for COPD wheezing and shortness of breath. Intermittent cough CARDIOVASCULAR: Negative for chest pain, leg swelling, hypertension, CHF or palpitations GI: No nausea, vomiting, or diarrhea NEURO: No history of headaches, syncope, paralysis, seizures or tremors, numbness on both legs-chronic. All other reviewed and negative other than HPI. EXAM: BP 149/69 Pulse 104 Resp 16 Wt 88.5 kg (195 lb) SpO2 93% BMI 36.84 kg/m PHYSICAL EXAM: General Appearance: Well appearing, alert, in no acute distress, well-hydrated, well nourished.. Skin: Skin color, texture, turgor normal, no suspicious rashes or lesions. Head: Normocephalic, no masses, lesions, tenderness or abnormalities. Eyes: Anicteric sclera. Pupils are equally round and reactive to light. Extraocular movements are intact. . Ears: External ears normal, canals clear. Lungs: Lungs clear to auscultation. No wheezing, rhonchi, rales.. Heart: RRR without murmur, gallop, or rubs. No ectopy. Abdomen: Abdomen soft, non-tender. Bowel sounds normal. No masses, organomegaly. Neurologic: Gait normal. Sensation grossly intact.. ASSESSMENT/PLAN: 1. Type 2 diabetes mellitus without complication, with long-term current use of insulin (HCC) - ICD9: 250.00, V58.67, ICD10: E11.9, Z79.4 - Uncontrolled - Continue current medications - Counseled on healthy diet and regular exercise - METFORMIN 500 MG TABLET Restart mounjaro. Will need an A1C 3 months after restarting medication. 2. Essential hypertension - ICD9: 401.9, ICD10: I10 - Uncontrolled - Continue current medications - Recommend home blood pressure monitoring, to bring results to next visit - Encouraged sodium restriction, DASH or Mediterranean diet - Recommend regular aerobic exercise - LISINOPRIL 20 MG TABLET Recheck in 1 month. 3. Hyperlipidemia, unspecified hyperlipidemia type - ICD9: 272.4, ICD10: E78.5 - Control undetermined, due for labs - Continue current medications - Counseled on healthy diet and regular exercise - ATORVASTATIN 80 MG TABLET 4. Atrial fibrillation with RVR (HCC) - ICD9: 427.31, ICD10: I48.91 - METOPROLOL SUCCINATE ER 25 MG TABLET,EXTENDED RELEASE 24 HR -- refers hadn't taken for 2 months d/t out of medication. New script sent. - pt follow up with the cardiology 5. Type 2 diabetes mellitus with hyperglycemia, without long-term current use of insulin (HCC) - ICD9: 250.00, 790.29, ICD10: E11.65 - Uncontrolled - Continue current medications - Counseled on healthy diet and regular exercise - TIRZEPATIDE 2.5 MG/0.5 ML SUBCUTANEOUS PEN INJECTOR 6. COPD with chronic bronchitis (HCC) - ICD9: 491.20, ICD10: J44.89 - Symptoms controlled - Continue current medications - Confirmed inhaler adherence and technique -Follows with pulmonary Discussed treatment plan and patient voices understanding. Patient's questions answered appropriately. Medications and potential side effects were discussed and patient voices understanding. The patient indicates understanding of these issues and agrees with the plan. Lorenza Vo APRN.CNP documented [facility]25 NoteHNO ID: [id number] Author: VIVIENNE IZQUIERDO MA Service: ? Author Type: Dope Sprayer Type: Progress Notes Filed: 08/25/2024 15:58 Note Text: POPULATION HEALTH NAVIGATION OUTREACH Action/FY Spoke to Emily. Her son will call back to schedule appt Topic Due (Y or N) Comments Medicare Wellness Y PCP Follow up Colorectal Cancer Screening Controlling Blood Pressure A1C HCC Y Flu Vaccine Care Everywhere Reviewed MyChart Activation Updated Appointment Note Reason for Outreach Care Gap/HCC or Scheduling Wellness Visits Care Gaps due: Medicare Annual Wellness Visit Patient Contacted: Spoke to patient/parent/or legal guardian Patient identified by name and : Yes Care Gap/HCC/Scheduling Wellness actions taken: Patient declined: Patient requested call back from navigator/ will call navigator back HCC related Navigation Signature: Vivienne Izquierdo MA August 25, 2024 3:42 [facility]07-09-2025 History of Present illness Narrative* Vivienne Izquierdo MA - 08/25/2024 3:42 PM EDT POPULATION HEALTH NAVIGATION OUTREACH Action/FY Spoke to Emily. Her son will call back to schedule appt Topic Due (Y or N) Comments Medicare Wellness Y PCP Follow up Colorectal Cancer Screening Controlling Blood Pressure A1C HCC Y Flu Vaccine Care Everywhere Reviewed MyChart Activation Updated Appointment Note Reason for Outreach Care Gap/HCC or Scheduling Wellness Visits Care Gaps due: Medicare Annual Wellness Visit Patient Contacted: Spoke to patient/parent/or legal guardian Patient identified by name and : Yes Care Gap/HCC/Scheduling Wellness actions taken: Patient declined: Patient requested call back from navigator/ will call navigator back HCC related Navigation Signature: Vivienne Izquierdo MA August 25, 2024 3:42 PM documented in this encounter[facility]07-[facility]-2025 NotePatient Outreach (NETNAV) EMILY LOPEZ ([id number]) 1950 F Date Time Provider Department 08/25/24 VIVIENNE IZQUIERDO NETKAILEYV During your visit today, we recorded the following information about you: Vivienne Izquierdo MA 08/25/2024 3:58 PM Signed POPULATION HEALTH NAVIGATION OUTREACH Action/FY Spoke to Emily. Her son will call back to schedule appt Topic Due (Y or N) Comments Medicare Wellness Y PCP Follow up Colorectal Cancer Screening Controlling Blood Pressure A1C HCC Y Flu Vaccine Care Everywhere Reviewed MyChart Activation Updated Appointment Note Reason for Outreach Care Gap/HCC or Scheduling Wellness Visits Care Gaps due: Medicare Annual Wellness Visit Patient Contacted: Spoke to patient/parent/or legal guardian Patient identified by name and : Yes Care Gap/HCC/Scheduling Wellness actions taken: Patient declined: Patient requested call back from navigator/ will call navigator back HCC related Navigation Signature: Vivienne Izquierdo MA August 25, 2024 3:42 PM Allergies As of Date: 08/25/2024 Noted Allergy Reaction TETANUS VACCINES AND TOXOID 12/26/2011 10 - Anaphylaxis CODEINE 07/03/2012 14 - Other: See Comments Comments: Patient states it feels like bugs are crawling on her PENICILLINS 12/26/2011 2 - Rash SEASONAL ALLERGIES 12/27/2011 14 - Other: See Comments SULFA (SULFONAMIDE ANTIBIOTICS) 12/26/2011 2 - Rash Date Reviewed: 08/03/2024 Reviewed by: Chinyere Wilson O[facility] - Fully Assessed Reason for Visit: Population Health Navigation Outreach [3910] Cmt: SONDRA CLARK PCSA Prescriptions as of 08/25/2024 - ergocalciferol 50,000 unit capsule (VITAMIN D2, DRISDOL) Take 1 capsule by mouth one time a week. - TRELEGY ELLIPTA 100-62.5-25 mcg inhalation powder INHALE 1 PUFF INSTRUCTED ONCE DAILY. - tirzepatide (MOUNJARO) 2.5 mg/0.5 mL pen injector Inject 2.5 mg subcutaneously one time a week. - lisinopril (ZESTRIL) 20 mg tablet Take 1 tablet by mouth once daily. - albuterol HFA (PROVENTIL HFA, VENTOLIN HFA) 90 mcg/actuation inhaler TAKE 2 PUFFS BY MOUTH EVERY 4 HOURS NEEDED - apixaban (ELIQUIS) 5 mg tab(s) Take 1 tablet by mouth two times a day. - amLODIPine (NORVASC) 10 mg tablet Take 1 tablet by mouth once daily. - metFORMIN (GLUCOPHAGE) 500 mg tablet Take 1 tablet by mouth daily with breakfast. - atorvastatin (LIPITOR) 80 mg tablet Take 1 tablet by mouth once daily. - metoprolol succinate ER (TOPROL XL) 25 mg 24 hr tablet Take 1 tablet by mouth once daily. - Lancets lancets Test blood sugar(s) 1 times daily. Dx: Type 2 DM - Controlled E11.9 Insulin: No - blood sugar diagnostic (BLOOD GLUCOSE TEST) test strip Test blood sugar(s) 1 times daily. Dx: Type 2 DM - Controlled E11.9 Insulin: Yes - vit A,C,H-Ooub-Xoykvd (PRESERVISION AREDS) 7,160-113-100 oyot-go-bsdf tab Take 2 tablets by mouth. - aspirin, enteric coated (ASPIRIN LOW DOSE) 81 mg EC tablet Take 1 tablet by mouth once daily. 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 Author Type: Physician Type: Progress Notes Filed: 08/03/2024 10:28 Note Text: [facility] [place] DEPARTMENT OF VASCULAR SURGERY OUTPATIENT VISIT DATE August 03, 2024 OUTPATIENT VISIT TYPE ESTABLISHED SERVICE DATE: 08/03/2024 SERVICE TIME: 9:51 AM PRIMARY CARE PHYSICIAN: Rober Rubio MD HISTORY OF PRESENT ILLNESS: Ms. Lopez is a 73 year old female who presents today for a vascular surgery follow-up visit from PVRs and carotid duplex. She was started on new medication in the hospital in December and has been having dizziness. 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 She states it has been progressing since Covid. She has noticed that her dizziness improves with eating and is unsure if it due to her diabetic medications. She does notice that her dog and cat seem to know when she is dizzy and unsteady and urge her to sit. PAST MEDICAL HISTORY Diagnosis Date COPD (chronic obstructive pulmonary disease) (HCC) HTN (hypertension) 01/15/2012 Hyperlipidemia Macular degeneration Meniere's disease PAST SURGICAL HISTORY Procedure Laterality Date APPENDECTOMY CHOLECYSTECTOMY COLONOSCOPY 08/27/2021 repeat in 5 years COLONOSCOPY FLX DX W/COLLJ SPEC WHEN PFRMD 12/04/2016 Colonoscopy - regular villous adenoma recommended 3 year follow-up PAST SURGICAL HISTORY OF exploratory lap for endometriosis SURGERY (GENERAL SURGERY) CONSULT 1997 LEFT ARM SURGERY TONSILLECTOMY HX TOTAL ABDOM HYSTERECTOMY age 42 SOCIAL HISTORY Social History Tobacco Use Smoking status: Former Current packs/day: 0.00 Average packs/day: 0.8 packs/day for 40.8 years (30.6 ttl pk-yrs) Types: Cigarettes Start date: 02/17/1970 Quit date: 11/26/2010 Years since quittin.6 Smokeless tobacco: Never Vaping Use Vaping status: Never Used Substance Use Topics Alcohol use: Yes Comment: 2 galsses of wine 1-2 times per week Drug use: No MEDICATIONS: TRELEGY ELLIPTA 100-62.5-25 mcg inhalation powder INHALE 1 PUFF INSTRUCTED ONCE DAILY. lisinopril (ZESTRIL) 20 mg tablet Take 1 tablet by mouth once daily. albuterol HFA (PROVENTIL HFA, VENTOLIN HFA) 90 mcg/actuation inhaler TAKE 2 PUFFS BY MOUTH EVERY 4 HOURS NEEDED apixaban (ELIQUIS) 5 mg tab(s) Take 1 tablet by mouth two times a day. amLODIPine (NORVASC) 10 mg tablet Take 1 tablet by mouth once daily. metFORMIN (GLUCOPHAGE) 500 mg tablet Take 1 tablet by mouth daily with breakfast. ergocalciferol 50,000 unit capsule (VITAMIN D2, DRISDOL) Take 1 capsule by mouth one time a week. atorvastatin (LIPITOR) 80 mg tablet Take 1 tablet by mouth once daily. metoprolol succinate ER (TOPROL XL) 25 mg 24 hr tablet Take 1 tablet by mouth once daily. vit A,C,N-Vbwy-Zyfqlh (PRESERVISION AREDS) 7,160-113-100 wtix-rq-cruh tab Take 2 tablets by mouth. aspirin, enteric coated (ASPIRIN LOW DOSE) 81 mg EC tablet Take 1 tablet by mouth once daily. tirzepatide (MOUNJARO) 2.5 mg/0.5 mL pen injector Inject 2.5 mg subcutaneously one time a week. Lancets lancets Test blood sugar(s) 1 times daily. Dx: Type 2 DM - Controlled E11.9 Insulin: No (Patient not taking: Reported on 10/03/2023) blood sugar diagnostic (BLOOD GLUCOSE TEST) test strip Test blood sugar(s) 1 times daily. Dx: Type 2 DM - Controlled E11.9 Insulin: Yes (Patient not taking: Reported on 10/03/2023) ALLERGIES: ALLERGIES Allergen Reactions Tetanus Vaccines An* Anaphylaxis Codeine Other: See Comments Patient states it feels like bugs are crawling on her Penicillins Rash Seasonal Allergies Other: See Comments Sulfa (Sulfonamide * Rash PHYSICAL EXAM: BP 142/74 (BP Site: Right Arm, BP Position: Sitting, BP Cuff Size: Regular Adult) Pulse 86 SpO2 96% General: Alert and oriented Integumentary: Normal color, no rash, no lesions. Neurological: Normal cognition and motor skills. Vascular: Radial Pulse Right: Normal - Left: Weak Diagnostic tests reviewed for today's visit: Most recent labs Most recent imaging Carotid Duplex When compared with the prior study, of 10/30/2023 no significant change is noted on the right side and no significant change is noted on the left side. RIGHT SIDE Common carotid artery: Plaque visualized without evidence of hemodynamically significant stenosis. Internal carotid artery: <50% stenosis consistent with mild carotid artery disease. Findings may be underestimated due to calcified shadowing plaque at origin . Calcified shadowing at origin : 1.3cm. Tortuous vessel from mid to distal . External carotid artery: Plaque without stenosis. Vertebral artery: Patent and antegrade flow noted. Innominate artery: Not visualized. Subclavian artery: Turbulent flow noted, cannot rule out more proximal stenosis. May wish other means of evaluation. LEFT SIDE Common carotid artery: Plaque visualized without evidence of (more content not included)...[facility]06-17-2025 History of Present illness Narrative* Emily Adams, - 08/03/2024 9:51 AM EDT Images from the original note were not included. [facility] [place] DEPARTMENT OF VASCULAR SURGERY OUTPATIENT VISIT DATE August 03, 2024 OUTPATIENT VISIT TYPE ESTABLISHED SERVICE DATE: 08/03/2024 SERVICE TIME: 9:51 AM PRIMARY CARE PHYSICIAN: Rober Rubio MD HISTORY OF PRESENT ILLNESS: Ms. Lopez is a 73 year old female who presents today for a vascular surgery follow-up visit from PVRs and carotid duplex. She was started on new medication in the hospital in December and has been having dizziness. 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 She states it has been progressing since Covid. She has noticed that her dizzinessimproves with eating and is unsure if it due to her diabetic medications. She does notice that her dog and cat seem to know when she is dizzy and unsteady and urge her to sit. PAST MEDICAL HISTORY Diagnosis Date COPD (chronic obstructive pulmonary disease) (HCC) HTN (hypertension) 01/15/2012 Hyperlipidemia Macular degeneration Meniere's disease PAST SURGICAL HISTORY Procedure Laterality Date APPENDECTOMY CHOLECYSTECTOMY COLONOSCOPY 08/27/2021 repeat in 5 years COLONOSCOPY FLX DX W/COLLJ SPEC WHEN PFRMD 12/04/2016 Colonoscopy - regular villous adenoma recommended 3 year follow-up PAST SURGICAL HISTORY OF exploratory lap for endometriosis SURGERY (GENERAL SURGERY) CONSULT 1997 LEFT ARM SURGERY TONSILLECTOMY HX TOTAL ABDOM HYSTERECTOMY age 42 SOCIAL HISTORY Social History Tobacco Use Smoking status: Former Current packs/day: 0.00 Average packs/day: 0.8 packs/day for 40.8 years (30.6 ttl pk-yrs) Types: Cigarettes Start date: 02/17/1970 Quit date: 11/26/2010 Years since quittin.6 Smokeless tobacco: Never Vaping Use Vaping status: Never Used Substance Use Topics Alcohol use: Yes Comment: 2 galsses of wine 1-2 times per week Drug use: No MEDICATIONS: TRELEGY ELLIPTA 100-62.5-25 mcg inhalation powder INHALE 1 PUFF INSTRUCTED ONCE DAILY. lisinopril (ZESTRIL) 20 mg tablet Take 1 tablet by mouth once daily. albuterol HFA (PROVENTIL HFA, VENTOLIN HFA) 90 mcg/actuation inhaler TAKE 2 PUFFS BY MOUTH EVERY 4 HOURS NEEDED apixaban (ELIQUIS) 5 mg tab(s) Take 1 tablet by mouth two times a day. amLODIPine (NORVASC) 10 mg tablet Take 1 tablet by mouth once daily. metFORMIN (GLUCOPHAGE) 500 mg tablet Take 1 tablet by mouth daily with breakfast. ergocalciferol 50,000 unit capsule (VITAMIN D2, DRISDOL) Take 1 capsule by mouth one time a week. atorvastatin (LIPITOR) 80 mg tablet Take 1 tablet by mouth once daily. metoprolol succinate ER (TOPROL XL) 25 mg 24 hr tablet Take 1 tablet by mouth once daily. vit A,C,R-Neyh-Umtcam (PRESERVISION AREDS) 7,160-113-100 neke-um-pkqq tab Take 2 tablets by mouth. aspirin, enteric coated (ASPIRIN LOW DOSE) 81 mg EC tablet Take 1 tablet by mouth once daily. tirzepatide (MOUNJARO) 2.5 mg/0.5 mL pen injector Inject 2.5 mg subcutaneously one time a week. Lancets lancets Test blood sugar(s) 1 times daily. Dx: Type 2 DM - Controlled E11.9 Insulin: No (Patient not taking: Reported on 10/03/2023) blood sugar diagnostic (BLOOD GLUCOSE TEST) test strip Test blood sugar(s) 1 times daily. Dx: Type 2 DM - Controlled E11.9 Insulin: Yes (Patient not taking: Reported on 10/03/2023) ALLERGIES: ALLERGIES Allergen Reactions Tetanus Vaccines An* Anaphylaxis Codeine Other: See Comments Patient states it feels like bugs are crawling on her Penicillins Rash Seasonal Allergies Other: See Comments Sulfa (Sulfonamide * Rash PHYSICAL EXAM: BP 142/74 (BP Site: Right Arm, BP Position: Sitting, BP Cuff Size: Regular Adult) Pulse 86 PoC786% General: Alert and oriented Integumentary: Normal color, no rash, no lesions. Neurological: Normal cognition and motor skills. Vascular: Radial Pulse Right: Normal - Left: Weak Diagnostic tests reviewed for today's visit: Most recent labs Most recent imaging Carotid Duplex When compared with the prior study, of 10/30/2023 no significant change is noted on the right side and no significant change is noted on the left side. RIGHT SIDE Common carotid artery: Plaque visualized without evidence of hemodynamically significant stenosis. Internal carotid artery: <50% stenosis consistent with mild carotid artery disease. Findings may be underestimated due to calcified shadowing plaque at origin . Calcified shadowing at origin : 1.3cm. Tortuous vessel from mid to distal . External carotid artery: Plaque without stenosis. Vertebral artery: Patent and antegrade flow noted. Innominate artery: Not visualized. Subclavian artery: Turbulent flow noted, cannot rule out more proximal stenosis. May wish other means of evaluation. LEFT SIDE Common carotid artery: Plaque visualized without evidence of hemodynamically significant stenosis. Internal carotid artery: 50-69% stenosis consistent with moderate carotid artery disease. Findings may be underestimated due to calcified shadowing plaque at origin . Calcified shadowing at origin : 1.0cm. External carotid artery: Elevated velocities and plaque noted. Vertebral artery: Retrograde flow is evidence of subclavian steal. Subclavian artery: Turbulent flow noted, cannot rule out more proximal subclavian artery stenosis. PVRs Compared to prior study of 10/30/2023, right ankle brachial index decreased from 0.61 and left ankle brachial index increased from 0.46. RIGHT SIDE Resting right ankle brachial index: 0.54 Abnormal ankle brachial index at rest diagnostic of peripheral artery disease. Right ankle: Moderate disease at rest. LEFT SIDE Resting left ankle brachial index: 0.51 Abnormal ankle brachial index at rest diagnostic of peripheral artery disease. Left ankle: Moderate disease at rest. IMPRESSION: Ms. Lopez is a 73 year old female with peripheral arterial disease and subclavian artery stenosis . PLAN and RECOMMENDATIONS: Continue current medications- aspirin, eliquis, statin Recommend follow up in 6 months with repeat duplex If symptoms worsen would recommend CTA SIGNATURE: Emily Adams DO PATIENT NAME: Emily Lopez DATE: August 03, 2024 TIME: 9:51 AM [facility] NoteHNO ID: [id number] Author: BECKY FARIAS MA Service: ? Author Type: Dope Sprayer Type: Progress Notes Filed: 06/28/2024 11:39 Note Text: POPULATION HEALTH NAVIGATION OUTREACH Action/FYI Called and left a message to call [phone], to discuss health maintenance items that are due. Sent My Chart message. PCP appt: Wellness due for 2024 Follow up on 09/01- updated note with AW, HCC and HM due HM due: HCC gaps BP Reason for Outreach Care Gap/HCC or Scheduling Wellness Visits Care Gaps due: Medicare Annual Wellness Visit Controlling Blood Pressure Patient Contacted: Unable or unnecessary to reach patient: Left message MyChart message sent HCC related Updated appointment notes Navigation Signature: Becky Farias MA June 28, 2024 11:37 [facility]05-12-2025 History of Present illness Narrative* Becky Farias MA - 06/28/2024 11:35 AM EDT POPULATION HEALTH NAVIGATION OUTREACH Action/FYI Called and left a message to call [phone], to discuss health maintenance items that are due. Sent My Chart message. PCP appt: Wellness due for 2024 Follow up on 09/01- updated note with AW, HCC and HM due HM due: HCC gaps BP Reason for Outreach Care Gap/HCC or Scheduling Wellness Visits Care Gaps due: Medicare Annual Wellness Visit Controlling Blood Pressure Patient Contacted: Unable or unnecessary to reach patient: Left message Modanisa message sent HCC related Updated appointment notes Navigation Signature: Becky Farias MA June 28, 2024 11:37 AM documented [facility]05-[facility]-2025 NotePatient Outreach (NETNAV) EMILY LOPEZ ([id number]) 1950 F Date Time Provider Department 06/28/24 BECKY FARIAS During your visit today, we recorded the following information about you: Becky Farias MA 06/28/2024 11:39 AM Signed POPULATION HEALTH NAVIGATION OUTREACH Action/FYI Called and left a message to call [phone], to discuss health maintenance items that are due. Sent My Chart message. PCP appt: Wellness due for 2024 Follow up on 09/01- updated note with AW, HCC and HM due HM due: HCC gaps BP Reason for Outreach Care Gap/HCC or Scheduling Wellness Visits Care Gaps due: Medicare Annual Wellness Visit Controlling Blood Pressure Patient Contacted: Unable or unnecessary to reach patient: Left message Doubles Alleyhart message sent HCC related Updated appointment notes Navigation Signature: Becky Farias MA June 28, 2024 11:37 AM Allergies As of Date: 06/28/2024 Noted Allergy Reaction TETANUS VACCINES AND TOXOID 12/26/2011 10 - Anaphylaxis CODEINE 07/03/2012 14 - Other: See Comments Comments: Patient states it feels like bugs are crawling on her PENICILLINS 12/26/2011 2 - Rash SEASONAL ALLERGIES 12/27/2011 14 - Other: See Comments SULFA (SULFONAMIDE ANTIBIOTICS) 12/26/2011 2 - Rash Date Reviewed: 04/28/2024 Reviewed by: Gil Garnica LPN - Fully Assessed Reason for Visit: Population Health Navigation Outreach [3910] Cmt: ACO, High Risk Prescriptions as of 06/28/2024 - tirzepatide (MOUNJARO) 2.5 mg/0.5 mL pen injector Inject 2.5 mg subcutaneously one time a week. - lisinopril (ZESTRIL) 20 mg tablet Take 1 tablet by mouth once daily. - albuterol HFA (PROVENTIL HFA, VENTOLIN HFA) 90 mcg/actuation inhaler TAKE 2 PUFFS BY MOUTH EVERY 4 HOURS NEEDED - apixaban (ELIQUIS) 5 mg tab(s) Take 1 tablet by mouth two times a day. - amLODIPine (NORVASC) 10 mg tablet Take 1 tablet by mouth once daily. - metFORMIN (GLUCOPHAGE) 500 mg tablet Take 1 tablet by mouth daily with breakfast. - ergocalciferol 50,000 unit capsule (VITAMIN D2, DRISDOL) Take 1 capsule by mouth one time a week. - otzpmboydbw-pizykqnqe-fyqhqnfp (TRELEGY ELLIPTA) 100-62.5-25 mcg inhalation powder Inhale 1 Puff as instructed once daily. - atorvastatin (LIPITOR) 80 mg tablet Take 1 tablet by mouth once daily. - metoprolol succinate ER (TOPROL XL) 25 mg 24 hr tablet Take 1 tablet by mouth once daily. - Lancets lancets Test blood sugar(s) 1 times daily. Dx: Type 2 DM - Controlled E11.9 Insulin: No - blood sugar diagnostic (BLOOD GLUCOSE TEST) test strip Test blood sugar(s) 1 times daily. Dx: Type 2 DM - Controlled E11.9 Insulin: Yes - vit A,C,Q-Eiim-Tzdzmb (PRESERVISION AREDS) 7,160-113-100 szuo-cc-gztf tab Take 2 tablets by mouth. - aspirin, enteric coated (ASPIRIN LOW DOSE) 81 mg EC tablet Take 1 tablet by mouth once daily. Problem List As Of Date 06/28/2024 Noted Resolved Hyperlipidemia [E78.5] HTN (hypertension) [I10] 01/15/2012 Fracture of proximal humerus [S42.209A] 03/24/2014 02/19/2018 Other emphysema (HCC) [J43.8] 12/09/2014 07/20/2020 Osteopenia [M85.80] 09/21/2015 History of colonic polyps [Z86.0100] 11/07/2016 Lung nodule [R91.1] 03/09/2020 COPD with chronic bronchitis (HCC) [J44.89] 07/20/2020 Type 2 diabetes mellitus without complication, *01/16/2021 Coronary artery calcification [I25.10] 06/25/2021 Obesity, Class I, BMI 30-34.9 [E66.811] 11/29/2021 Fatty liver [K76.0] 02/25/2023 Atrial fibrillation with RVR (HCC) [I48.91] 02/25/2023 Obesity, Class II, BMI 35-39.9 [E66.812] 10/03/2023 Paroxysmal atrial fibrillation (HCC) [I48.0] 10/03/2023 On apixaban therapy [Z79.01] 10/03/2023 Encounter Status:Closed by BECKY FARIAS on 06/28/24[facility] 05-28-[facility] Telephone encounter Note* Telephone Encounter - Rod Reich RN - 05/28/2024 4:24 PM EDT Patient calls and notified of results and providers instructions. Patient verbalizes understanding. Patient to have son call back to schedule when he is able to transport. Rod Reich RN [facility]04-11-[facility] Miscellaneous Notes* Telephone Encounter - Rod Reich RN - 05/28/2024 4:24 PM EDT Patient calls and notified of results and providers instructions. Patient verbalizes understanding. Patient to have son call back to schedule when he is able to transport. Rod Reich, RN * Telephone Encounter - Ana Rosa Saenz MA - 05/28/2024 2:48 PM EDT Message left for return call. Ana Rosa Saenz MA * Telephone Encounter - Rober Rubio MD - 05/28/2024 2:22 PM EDT Labs are stable. Liver is mildly up still. Has known fatty liver. Recheck liver us and labs in one month [facility]04-[facility] Telephone encounter Note * Telephone Encounter - Ana Rosa Saenz MA - 05/28/2024 2:48 PM EDT Message left for return call. Ana Rosa Saenz MA [facility]04-11-[facility] Telephone encounter Note* Telephone Encounter - Rober Rubio MD - 05/28/2024 2:22 PM EDT Labs are stable. Liver is mildly up still. Has known fatty liver. Recheck liver us and labs in one month [facility]04-09-[facility] Instructions* Patient Instructions* Lorenza Vo APRN.CNP - 05/26/2024 1:26 PM EDT Continue current medication regimen Get lab work Follow up in 3 months or sooner as needed [facility]04-[facility]-2025 NoteHNO ID: [id number] Author: LORENZA VO APRN.DRYING TUNNEL OPERATOR Service: ? Author Type: Nurse Practitioner Type: Progress Notes Filed: 05/26/2024 19:16 Note Text: This is a 73 year old female who presents today with: Patient presents with: Recheck: 1 month follow up HISTORY OF PRESENT ILLNESS: Emily Lopez is a 73 year old female. Patient presents with: Recheck: 1 month follow up DM: Reports overall feeling well. Medication side effects: No. Home sugar checks: No. Hypoglycemic spells: No. Watching diet: Yes. Unexpected weight loss: No. Polyuria, polydipsia: No. Vision Changes: No. Foot lesions or numbness or pain: Yes, numbness in both feet, has been this way for several years Had diarrhea before starting mounjaro Started mounjaro about 2 weeks ago Has not had any issues with the medication Has been able to use the pen well Still taking metformin REVIEW OF SYSTEMS GENERAL: No weight loss, malaise or fevers/chills HEENT: Negative for frequent or significant headaches, No changes in hearing or vision. NECK: Negative for lumps, goiter, pain and significant neck swelling RESPIRATORY: Negative for cough, hemoptysis, wheezing, dyspnea or shortness of breath CARDIOVASCULAR: Negative for chest pain, leg swelling, orthopnea, or palpitations GI: No nausea, vomiting, or diarrhea/constipation. No hematochezia/melena. No heartburn or reflux symptoms. : No history of dysuria, frequency or incontinence MUSCULOSKELETAL: Negative for joint pain or swelling. SKIN: Negative for lesions, rash, and itching ENDOCRINE: Negative for cold or heat intolerance, polyuria, polydipsia and goiter PAST MEDICAL HISTORY: PAST MEDICAL HISTORY Diagnosis Date COPD (chronic obstructive pulmonary disease) (HCC) HTN (hypertension) 01/15/2012 Hyperlipidemia Macular degeneration Meniere's disease PAST SURGICAL HISTORY Procedure Laterality Date APPENDECTOMY CHOLECYSTECTOMY COLONOSCOPY 08/27/2021 repeat in 5 years COLONOSCOPY FLX DX W/COLLJ SPEC WHEN PFRMD 12/04/2016 Colonoscopy - regular villous adenoma recommended 3 year follow-up PAST SURGICAL HISTORY OF exploratory lap for endometriosis SURGERY (GENERAL SURGERY) CONSULT 1997 LEFT ARM SURGERY TONSILLECTOMY HX TOTAL ABDOM HYSTERECTOMY age 42 ALLERGIES Tetanus Vaccines And Toxoid, Codeine, Penicillins, Seasonal Allergies, and Sulfa (Sulfonamide Antibiotics) MEDICATIONS Current Outpatient Medications Medication Sig tirzepatide (MOUNJARO) 2.5 mg/0.5 mL pen injector Inject 2.5 mg subcutaneously one time a week. lisinopril (ZESTRIL) 20 mg tablet Take 1 tablet by mouth once daily. albuterol HFA (PROVENTIL HFA, VENTOLIN HFA) 90 mcg/actuation inhaler TAKE 2 PUFFS BY MOUTH EVERY 4 HOURS NEEDED apixaban (ELIQUIS) 5 mg tab(s) Take 1 tablet by mouth two times a day. amLODIPine (NORVASC) 10 mg tablet Take 1 tablet by mouth once daily. metFORMIN (GLUCOPHAGE) 500 mg tablet Take 1 tablet by mouth daily with breakfast. ergocalciferol 50,000 unit capsule (VITAMIN D2, DRISDOL) Take 1 capsule by mouth one time a week. muenaikrjok-undtaofnz-dfrybadv (TRELEGY ELLIPTA) 100-62.5-25 mcg inhalation powder Inhale 1 Puff as instructed once daily. atorvastatin (LIPITOR) 80 mg tablet Take 1 tablet by mouth once daily. metoprolol succinate ER (TOPROL XL) 25 mg 24 hr tablet Take 1 tablet by mouth once daily. Lancets lancets Test blood sugar(s) 1 times daily. Dx: Type 2 DM - Controlled E11.9 Insulin: No (Patient not taking: Reported on 10/03/2023) blood sugar diagnostic (BLOOD GLUCOSE TEST) test strip Test blood sugar(s) 1 times daily. Dx: Type 2 DM - Controlled E11.9 Insulin: Yes (Patient not taking: Reported on 10/03/2023) vit A,C,F-Giiq-Ghgenp (PRESERVISION AREDS) 7,160-113-100 ycnc-zj-ayil tab Take 2 tablets by mouth. aspirin, enteric coated (ASPIRIN LOW DOSE) 81 mg EC tablet Take 1 tablet by mouth once daily. No current facility-administered medications for this visit. FAMILY HISTORY Problem Relation Age of Onset Diabetes Mother Thyroid Mother Diabetes Father COPD Father smoker Diabetes Sister Bipolar disorder Sister Bipolar disorder Daughter other (10 grandchildren) Grandchild Cancer No Family History Social History Tobacco Use Smoking status: Former Current packs/day: 0.00 Average packs/day: 0.8 packs/day for 40.8 years (30.6 ttl pk-yrs) Types: Cigarettes Start date: 02/17/1970 Quit date: 11/26/2010 Years since quittin.5 Smokeless tobacco: Never Vaping Use Vaping status: Never Used Substance Use Topics Alcohol use: Yes Comment: 2 galsses of wine 1-2 times per week Drug use: No EXAM: BP 148/68 Pulse 90 PHYSICAL EXAM: General Appearance: Well appearing, alert, in no acute distress, well-hydrated, well nourished.. Lungs: Lungs clear to auscultation. No wheezing, rhonchi, rales.. Heart: RRR without murmur, gallop, or rubs. No ectopy. Extremities: No deformities, e (more content not included)...[facility]04-09-2025 History of Present illness Narrative* Lorenza Vo APRN.[facility] - 05/26/2024 1:09 PM EDT This is a 73 year old female who presents today with: Patient presents with: Recheck: 1 month follow up HISTORY OF PRESENT ILLNESS: Emily Lopez is a 73 year old female. Patient presents with: Recheck: 1 month follow up DM: Reports overall feeling well. Medication side effects: No. Home sugar checks: No. Hypoglycemic spells: No. Watching diet: Yes. Unexpected weight loss: No. Polyuria, polydipsia: No. Vision Changes: No. Foot lesions or numbness or pain: Yes, numbness in both feet, has been this way for several years Had diarrhea before starting mounjaro Started mounjaro about 2 weeks ago Has not had any issues with the medication Has been able to use the pen well Still taking metformin REVIEW OF SYSTEMS GENERAL: No weight loss, malaise or fevers/chills HEENT: Negative for frequent or significant headaches, No changes in hearing or vision. NECK: Negative for lumps, goiter, pain and significant neck swelling RESPIRATORY: Negative for cough, hemoptysis, wheezing, dyspnea or shortness of breath CARDIOVASCULAR: Negative for chest pain, leg swelling, orthopnea, or palpitations GI: No nausea, vomiting, or diarrhea/constipation. No hematochezia/melena. No heartburn or reflux symptoms. : No history of dysuria, frequency or incontinence MUSCULOSKELETAL: Negative for joint pain or swelling. SKIN: Negative for lesions, rash, and itching ENDOCRINE: Negative for cold or heat intolerance, polyuria, polydipsia and goiter PAST MEDICAL HISTORY: PAST MEDICAL HISTORY Diagnosis Date COPD (chronic obstructive pulmonary disease) (HCC) HTN (hypertension) 01/15/2012 Hyperlipidemia Macular degeneration Meniere's disease PAST SURGICAL HISTORY Procedure Laterality Date APPENDECTOMY CHOLECYSTECTOMY COLONOSCOPY 08/27/2021 repeat in 5 years COLONOSCOPY FLX DX W/COLLJ SPEC WHEN PFRMD 12/04/2016 Colonoscopy - regular villous adenoma recommended 3 year follow-up PAST SURGICAL HISTORY OF exploratory lap for endometriosis SURGERY (GENERAL SURGERY) CONSULT 1997 LEFT ARM SURGERY TONSILLECTOMY HX TOTAL ABDOM HYSTERECTOMY age 42 ALLERGIES Tetanus Vaccines And Toxoid, Codeine, Penicillins, Seasonal Allergies, and Sulfa (Sulfonamide Antibiotics) MEDICATIONS Current Outpatient Medications Medication Sig tirzepatide (MOUNJARO) 2.5 mg/0.5 mL pen injector Inject 2.5 mg subcutaneously one time a week. lisinopril (ZESTRIL) 20 mg tablet Take 1 tablet by mouth once daily. albuterol HFA (PROVENTIL HFA, VENTOLIN HFA) 90 mcg/actuation inhaler TAKE 2 PUFFS BY MOUTH EVERY 4 HOURS NEEDED apixaban (ELIQUIS) 5 mg tab(s) Take 1 tablet by mouth two times a day. amLODIPine (NORVASC) 10 mg tablet Take 1 tablet by mouth once daily. metFORMIN (GLUCOPHAGE) 500 mg tablet Take 1 tablet by mouth daily with breakfast. ergocalciferol 50,000 unit capsule (VITAMIN D2, DRISDOL) Take 1 capsule by mouth one time a week. ufplozapskh-vxrgiinaf-xhzfpyie (TRELEGY ELLIPTA) 100-62.5-25 mcg inhalation powder Inhale 1 Puff asinstructed once daily. atorvastatin (LIPITOR) 80 mg tablet Take 1 tablet by mouth once daily. metoprolol succinate ER (TOPROL XL) 25 mg 24 hr tablet Take 1 tablet by mouth once daily. Lancets lancets Test blood sugar(s) 1 times daily. Dx: Type 2 DM - Controlled E11.9 Insulin: No (Patient not taking: Reported on 10/03/2023) blood sugar diagnostic (BLOOD GLUCOSE TEST) test strip Test blood sugar(s) 1 times daily. Dx: Type 2 DM - Controlled E11.9 Insulin: Yes (Patient not taking: Reported on 10/03/2023) vit A,C,J-Gwpo-Mrwkiz (PRESERVISION AREDS) 7,160-113-100 yvmt-gc-iwde tab Take 2 tablets by mouth. aspirin, enteric coated (ASPIRIN LOW DOSE) 81 mg EC tablet Take 1 tablet by mouth once daily. No current facility-administered medications for this visit. FAMILY HISTORY Problem Relation Age of Onset Diabetes Mother Thyroid Mother Diabetes Father COPD Father smoker Diabetes Sister Bipolar disorder Sister Bipolar disorder Daughter other (10 grandchildren) Grandchild Cancer No Family History Social History Tobacco Use Smoking status: Former Current packs/day: 0.00 Average packs/day: 0.8 packs/day for 40.8 years (30.6 ttl pk-yrs) Types: Cigarettes Start date: 02/17/1970 Quit date: 11/26/2010 Years since quittin.5 Smokeless tobacco: Never Vaping Use Vaping status: Never Used Substance Use Topics Alcohol use: Yes Comment: 2 galsses of wine 1-2 times per week Drug use: No EXAM: BP 148/68 Pulse 90 PHYSICAL EXAM: General Appearance: Well appearing, alert, in no acute distress, well-hydrated, well nourished.. Lungs: Lungs clear to auscultation. No wheezing, rhonchi, rales.. Heart: RRR without murmur, gallop, or rubs. No ectopy. Extremities: No deformities, edema, skin discoloration, clubbing or cyanosis. Good capillary refill. . ASSESSMENT/PLAN: 1. Type 2 diabetes mellitus without complication, without long-term current use of insulin ([facility]) - ICD9: 250.00, ICD10: E11.9 - Control undetermined, due for labs - Continue current medications - Counseled on healthy diet and regular exercise - Discussed with patient compliance with use of medication injectable - Follow up in 3 months, sooner should any other issues arise. Discussed treatment plan and patient voices understanding. Patient's questions answered appropriately. Medications and potential side effects were discussed and patient voices understanding. Return to the office as scheduled or as needed for worsening/no improvement. The patient indicates understanding of these issues and agrees with the plan. Lorenza Vo APRN.DRYING TUNNEL OPERATOR documented [facility]03-[facility]25 NoteHNO ID: [id number] Author: ?, ?, ? Service: ? Author Type: LICENSED NURSE Type: Progress Notes Filed: 05/13/2024 11:09 Note Text: Patient presents for self injection teaching. States that she was given a lot of helpful information at her last OV, but wanted to make sure she was doing it correctly when having to actually administer medication. Brought medication with her to appt. Reviewed over proper med prep, hand hygiene, administration, and disposal of supplies. Pt was able to complete teachback and administer medication at this time with minimal assistance. Son accompanied pt and verbalized understanding of all instructions also (pt is visually impaired and he will be assisting). Answered all questions at this time. Pt verbalized understanding. Spent 15-20 minutes of appt with face to face education. Pt alert and oriented. [facility] Tele[facility] encounter Note * Telephone Encounter - Gil Garnica LPN - 05/12/2024 4:01 PM EDT Phoned pt Nikita mcintyre, appt scheduled. Gil Garnica LPN [facility]03-26-2025 Miscellaneous Notes* Telephone Encounter - Gil Garnica LPN - 05/12/2024 4:01 PM EDT Phoned pt Nikita mcintyre, appt scheduled. Gil Garnica LPN documented in this encounterOhio [facility]03-25-2025 NoteHNO ID: [id number] Author: VIVIENNE IZQUIERDO MA Service: ? Author Type: Dope Sprayer Type: Progress Notes Filed: 05/11/2024 16:46 Note Text: POPULATION HEALTH NAVIGATION OUTREACH Action/FYI Orders removed since provider did not sign within 7 days and encounter closed. Please have the office reach out to the patient to coordinate any further testing/appointment needs. Reason for Outreach Care Gap/HCC or Scheduling Wellness Visits Vivienne Izquierdo MA May 11, 2024 4:43 [facility]03-25-2025 History of Present illness Narrative* Vivienne Izquierdo MA - 05/11/2024 4:43 PM EDT POPULATION HEALTH NAVIGATION OUTREACH Action/FYI Orders removed since provider did not sign within 7 days and encounter closed. Please have the office reach out to the patient to coordinate any further testing/appointment needs. Reason for Outreach Care Gap/HCC or Scheduling Wellness Visits Vivienne Izquierdo MA May 11, 2024 4:43 PM * Vivienne Izquierdo MA - 04/28/2024 9:48 AM EDT POPULATION HEALTH NAVIGATION OUTREACH Action/FYI UPDATED APPOINTMENT NOTES HCC CLOSURE Topic Due (Y or N) Comments Medicare Wellness Y PCP Follow up Colorectal Cancer Screening Controlling Blood Pressure Y A1C Y HCC Y Flu Vaccine Care Everywhere Reviewed MyChart Activation Updated Appointment Note Reason for Outreach Care Gap/HCC or Scheduling Wellness Visits Care Gaps due: Medicare Annual Wellness Visit HBA1C Flu Vaccine Patient Contacted: Unable or unnecessary to reach patient: Patient already scheduled Updated appointment notes Navigation Signature: Vivienne Izquierdo MA April 28, 2024 9:48 AM documented in this encounterOhio [facility]03-12-2025 Instructions* Patient Instructions* Lorenza Vo APRN.CNP - 04/28/2024 1:33 PM EDT Get the labwork. Decrease the lisinopril to 20 mg daily. Lets see if the mounjaro is covered. Let us know if you are able to pick it up and we can have you back in to work with you on administering it. Otherwise, recheck in a month. documented in this encounterOhio [facility] Hospital03-12-2025 NoteHNO ID: [id number] Author: LORENZA VO APRN.[facility] Service: ? Author Type: Nurse Practitioner Type: Progress Notes Filed: 04/30/2024 10:06 Note Text: This is a 73 year old female who presents today with: Patient presents with: 6 Month Exam HISTORY OF PRESENT ILLNESS: Emily Lopez is a 73 year old female. Patient presents with: 6 Month Exam HTN: Patient is compliant with meds Yes Monitors bp at home: No. Denies side effects: Yes. Chest pain: just a discomfort. Short -- just enough to notice and then by the time she raises her hand to her chest, it is gone. Dyspnea: not worse than normal -- but things that getting progressing as she ages. Edema: No. Palpitations: No. Syncope: No. Headache: No. Dizziness: postural -- when she gets up to go to the bathroom. HYPERLIPIDEMIA: Patient is taking medications: Yes. Patient is watching diet: Yes. Patient denies myalgias: Yes. Patient denies gi upset: Yes DM: Reports overall feeling well. Medication side effects: Yes. Diarrhea. Home sugar checks: can't see to check sugars. Hypoglycemic spells: No. Watching diet: Yes. Unexpected weight loss: No. Polyuria, polydipsia: has had dry mouth for the last 6 weeks. Vision Changes: No. Foot lesions or numbness or pain: feet has been numb for the last 19 years. A fib/CAD: Chronic anticoagulation No abnormal s/s of bleeding. COPD Refers that pulmonology thinks that stomach fat is hindering breathing. Recommending a GLP-1. She was on rybelsus, as previously didn't think that she could visually see to do injections. She is not currently taking. Lung nodule Low-dose lung CT completed in January. PAST MEDICAL HISTORY: PAST MEDICAL HISTORY Diagnosis Date COPD (chronic obstructive pulmonary disease) (HCC) HTN (hypertension) 01/15/2012 Hyperlipidemia Macular degeneration Meniere's disease PAST SURGICAL HISTORY Procedure Laterality Date APPENDECTOMY CHOLECYSTECTOMY COLONOSCOPY 08/27/2021 repeat in 5 years COLONOSCOPY FLX DX W/COLLJ SPEC WHEN PFRMD 12/04/2016 Colonoscopy - regular villous adenoma recommended 3 year follow-up PAST SURGICAL HISTORY OF exploratory lap for endometriosis SURGERY (GENERAL SURGERY) CONSULT 1997 LEFT ARM SURGERY TONSILLECTOMY HX TOTAL ABDOM HYSTERECTOMY age 42 ALLERGIES Tetanus Vaccines And Toxoid, Codeine, Penicillins, Seasonal Allergies, and Sulfa (Sulfonamide Antibiotics) MEDICATIONS Current Outpatient Medications Medication Sig albuterol HFA (PROVENTIL HFA, VENTOLIN HFA) 90 mcg/actuation inhaler TAKE 2 PUFFS BY MOUTH EVERY 4 HOURS NEEDED apixaban (ELIQUIS) 5 mg tab(s) Take 1 tablet by mouth two times a day. amLODIPine (NORVASC) 10 mg tablet Take 1 tablet by mouth once daily. semaglutide (RYBELSUS) 3 mg tablet Take 1 tablet by mouth daily before breakfast. Take 30 minutes before the first food, beverage, or other oral medications of the day with no more than 4 ounces of plain water (Patient not taking: Reported on 02/02/2024) lisinopril (ZESTRIL) 30 mg tablet Take 1 tablet by mouth once daily. metFORMIN (GLUCOPHAGE) 500 mg tablet Take 1 tablet by mouth daily with breakfast. ergocalciferol 50,000 unit capsule (VITAMIN D2, DRISDOL) Take 1 capsule by mouth one time a week. yximmebwmkm-nlmbhdegu-qszmgrxf (TRELEGY ELLIPTA) 100-62.5-25 mcg inhalation powder Inhale 1 Puff as instructed once daily. atorvastatin (LIPITOR) 80 mg tablet Take 1 tablet by mouth once daily. metoprolol succinate ER (TOPROL XL) 25 mg 24 hr tablet Take 1 tablet by mouth once daily. Lancets lancets Test blood sugar(s) 1 times daily. Dx: Type 2 DM - Controlled E11.9 Insulin: No (Patient not taking: Reported on 10/03/2023) blood sugar diagnostic (BLOOD GLUCOSE TEST) test strip Test blood sugar(s) 1 times daily. Dx: Type 2 DM - Controlled E11.9 Insulin: Yes (Patient not taking: Reported on 10/03/2023) vit A,C,Z-Puov-Vjikdf (PRESERVISION AREDS) 7,160-113-100 nblg-ba-qdtk tab Take 2 tablets by mouth. aspirin, enteric coated (ASPIRIN LOW DOSE) 81 mg EC tablet Take 1 tablet by mouth once daily. No current facility-administered medications for this visit. FAMILY HISTORY Problem Relation Age of Onset Diabetes Mother Thyroid Mother Diabetes Father COPD Father smoker Diabetes Sister Bipolar disorder Sister Bipolar disorder Daughter other (10 grandchildren) Grandchild Cancer No Family History Social History Tobacco Use Smoking status: Former Current packs/day: 0.00 Average packs/day: 0.8 packs/day for 40.8 years (30.6 ttl pk-yrs) Types: Cigarettes Start date: 02/17/1970 Quit date: 11/26/2010 Years since quittin.4 Smokeless tobacco: Never Vaping Use Vaping status: Never Used Substance Use Topics Alcohol use: Yes Comment: 2 galsses of wine 1-2 times per week Drug use: No EXAM: BP 102/74 Pulse 95 Resp 16 Wt 90.3 kg (199 lb) SpO2 96% BMI 37.60 kg/m? PHYSICAL EXAM: Gen (more content not included)...[facility]03-12-2025 History of Present illness Narrative* Lorenza Vo APRN.DRYING TUNNEL OPERATOR - 04/28/2024 12:58 PM EDT This is a 73 year old female who presents today with: Patient presents with: 6 Month Exam HISTORY OF PRESENT ILLNESS: Emily Lopez is a 73 year old female. Patient presents with: 6 Month Exam HTN: Patient is compliant with meds Yes Monitors bp at home: No. Denies side effects: Yes. Chest pain: just a discomfort. Short -- just enough to notice and then by the time she raises herhand to her chest, it is gone. Dyspnea: not worse than normal -- but things that getting progressing as she ages. Edema: No. Palpitations: No. Syncope: No. Headache: No. Dizziness: postural -- when she gets up to go to the bathroom. HYPERLIPIDEMIA: Patient is taking medications: Yes. Patient is watching diet: Yes. Patient denies myalgias: Yes. Patient denies gi upset: Yes DM: Reports overall feeling well. Medication side effects: Yes. Diarrhea. Home sugar checks: can't see to check sugars. Hypoglycemic spells: No. Watching diet: Yes. Unexpected weight loss: No. Polyuria, polydipsia: has had dry mouth for the last 6 weeks. Vision Changes: No. Foot lesions or numbness or pain: feet has been numb for the last 19 years. A fib/CAD: Chronic anticoagulation No abnormal s/s of bleeding. COPD Refers that pulmonology thinks that stomach fat is hindering breathing. Recommending a GLP-1. She was on rybelsus, as previously didn't think that she could visually see to do injections. She is not currently taking. Lung nodule Low-dose lung CT completed in January. PAST MEDICAL HISTORY: PAST MEDICAL HISTORY Diagnosis Date COPD (chronic obstructive pulmonary disease) (HCC) HTN (hypertension) 01/15/2012 Hyperlipidemia Macular degeneration Meniere's disease PAST SURGICAL HISTORY Procedure Laterality Date APPENDECTOMY CHOLECYSTECTOMY COLONOSCOPY 08/27/2021 repeat in 5 years COLONOSCOPY FLX DX W/COLLJ SPEC WHEN PFRMD 12/04/2016 Colonoscopy - regular villous adenoma recommended 3 year follow-up PAST SURGICAL HISTORY OF exploratory lap for endometriosis SURGERY (GENERAL SURGERY) CONSULT 1997 LEFT ARM SURGERY TONSILLECTOMY HX TOTAL ABDOM HYSTERECTOMY age 42 ALLERGIES Tetanus Vaccines And Toxoid, Codeine, Penicillins, Seasonal Allergies, and Sulfa (Sulfonamide Antibiotics) MEDICATIONS Current Outpatient Medications Medication Sig albuterol HFA (PROVENTIL HFA, VENTOLIN HFA) 90 mcg/actuation inhaler TAKE 2 PUFFS BY MOUTH EVERY 4 HOURS NEEDED apixaban (ELIQUIS) 5 mg tab(s) Take 1 tablet by mouth two times a day. amLODIPine (NORVASC) 10 mg tablet Take 1 tablet by mouth once daily. semaglutide (RYBELSUS) 3 mg tablet Take 1 tablet by mouth daily before breakfast. Take 30 minutes before the first food, beverage, or other oral medications of the day with no more than 4 ounces of plain water (Patient not taking: Reported on 02/02/2024) lisinopril (ZESTRIL) 30 mg tablet Take 1 tablet by mouth once daily. metFORMIN (GLUCOPHAGE) 500 mg tablet Take 1 tablet by mouth daily with breakfast. ergocalciferol 50,000 unit capsule (VITAMIN D2, DRISDOL) Take 1 capsule by mouth one time a week. jjmlytfvksb-dgtsytqic-cvaydnuc (TRELEGY ELLIPTA) 100-62.5-25 mcg inhalation powder Inhale 1 Puff asinstructed once daily. atorvastatin (LIPITOR) 80 mg tablet Take 1 tablet by mouth once daily. metoprolol succinate ER (TOPROL XL) 25 mg 24 hr tablet Take 1 tablet by mouth once daily. Lancets lancets Test blood sugar(s) 1 times daily. Dx: Type 2 DM - Controlled E11.9 Insulin: No (Patient not taking: Reported on 10/03/2023) blood sugar diagnostic (BLOOD GLUCOSE TEST) test strip Test blood sugar(s) 1 times daily. Dx: Type 2 DM - Controlled E11.9 Insulin: Yes (Patient not taking: Reported on 10/03/2023) vit A,C,J-Qgzk-Bvojye (PRESERVISION AREDS) 7,160-113-100 ogkp-dm-safv tab Take 2 tablets by mouth. aspirin, enteric coated (ASPIRIN LOW DOSE) 81 mg EC tablet Take 1 tablet by mouth once daily. No current facility-administered medications for this visit. FAMILY HISTORY Problem Relation Age of Onset Diabetes Mother Thyroid Mother Diabetes Father COPD Father smoker Diabetes Sister Bipolar disorder Sister Bipolar disorder Daughter other (10 grandchildren) Grandchild Cancer No Family History Social History Tobacco Use Smoking status: Former Current packs/day: 0.00 Average packs/day: 0.8 packs/day for 40.8 years (30.6 ttl pk-yrs) Types: Cigarettes Start date: 02/17/1970 Quit date: 11/26/2010 Years since quittin.4 Smokeless tobacco: Never Vaping Use Vaping status: Never Used Substance Use Topics Alcohol use: Yes Comment: 2 galsses of wine 1-2 times per week Drug use: No EXAM: BP 102/74 Pulse 95 Resp 16 Wt 90.3 kg (199 lb) SpO2 96% BMI 37.60 kg/m PHYSICAL EXAM: General Appearance: Well appearing, alert, in no acute distress, well-hydrated, well nourished.. Skin: Skin color, texture, turgor normal, no suspicious rashes or lesions. Head: Normocephalic, no masses, lesions, tenderness or abnormalities. Eyes: Anicteric sclera. Pupils are equally round and reactive to light. Extraocular movements are intact. . Lungs: Lungs clear to auscultation. No wheezing, rhonchi, rales.. Heart: RRR without murmur, gallop, or rubs. No ectopy. Neurologic: Gait normal. ASSESSMENT/PLAN: 1. Essential hypertension - ICD9: 401.9, ICD10: I10 (primary diagnosis) - Controlled - Continue current medications - Recommend home blood pressure monitoring, to bring results to next visit - Encouraged sodium restriction, DASH or Mediterranean diet - Recommend regular aerobic exercise - COMPREHENSIVE METABOLIC PANEL - LISINOPRIL 20 MG TABLET 2. Atrial fibrillation with RVR ([facility]) - ICD9: 427.31, ICD10: I48.91 Stable on current regimen. 3. PVD (peripheral vascular disease) ([facility]) - ICD9: 443.9, ICD10: I73.9 Continue per vascular. 4. Type 2 diabetes mellitus with hyperglycemia, without long-term current use of insulin ([facility]) - ICD9: 250.00, 790.29, ICD10: E11.65 - Controlled - Start tirzepatide (Mounjaro) - HEMOGLOBIN A1C - TIRZEPATIDE 2.5 MG/0.5 ML SUBCUTANEOUS PEN INJECTOR Isn't currently taking the rybelsus -- thinks that she ran out. Reviewed mounjaro with a demo pen. She is willing to try. Aware that we can set up a visit once she acquires to help teach her to administer. 5. Lung nodule - ICD9: 793.11, ICD10: R91.1 Up to date w/ imaging. 6. COPD with chronic bronchitis (HCC) - ICD9: 491.20, ICD10: J44.89 Continue per pulmonology. 7. Chronic anticoagulation - ICD9: V58.61, ICD10: Z79.01 No abnormal s/s of bleeding. - COMPLETE BLOOD COUNT AND DIFFERENTIAL 8. Mixed hyperlipidemia - ICD9: 272.2, ICD10: E78.2 - Control undetermined, due for labs - Continue current medications - Counseled on healthy diet and regular exercise - LIPID PANEL, NONFASTING Discussed treatment plan and patient voices understanding. Patient's questions answered appropriately. Medications and potential side effects were discussed and patient voices understanding. Return to the office as scheduled or as needed for worsening/no improvement. Lorenza Vo APRN.CNP documented in this encounterOhio [facility]03-12-2025 NoteHNO ID: [id number] Author: VIVIENNE IZQUIERDO MA Service: ? Author Type: Dope Sprayer Type: Progress Notes Filed: 05/11/2024 16:46 Note Text: POPULATION HEALTH NAVIGATION OUTREACH Action/FYI UPDATED APPOINTMENT NOTES HCC CLOSURE Topic Due (Y or N) Comments Medicare Wellness Y PCP Follow up Colorectal Cancer Screening Controlling Blood Pressure Y A1C Y HCC Y Flu Vaccine Care Everywhere Reviewed MyChart Activation Updated Appointment Note Reason for Outreach Care Gap/HCC or Scheduling Wellness Visits Care Gaps due: Medicare Annual Wellness Visit HBA1C Flu Vaccine Patient Contacted: Unable or unnecessary to reach patient: Patient already scheduled Updated appointment notes Navigation Signature: Vivienne Izquierdo MA April 28, 2024 9:48 [facility]03-12-2025 NotePatient Outreach (NETNAV) EMILY LOPEZ ([id number]) 1950 F Date Time Provider Department 04/28/24 VIVIENNE IZQUIERDO NETKAILEYV During your visit today, we recorded the following information about you: Vivienne Izquierdo MA 05/11/2024 4:46 PM Signed POPULATION HEALTH NAVIGATION OUTREACH Action/FYI UPDATED APPOINTMENT NOTES HCC CLOSURE Topic Due (Y or N) Comments Medicare Wellness Y PCP Follow up Colorectal Cancer Screening Controlling Blood Pressure Y A1C Y HCC Y Flu Vaccine Care Everywhere Reviewed MyChart Activation Updated Appointment Note Reason for Outreach Care Gap/HCC or Scheduling Wellness Visits Care Gaps due: Medicare Annual Wellness Visit HBA1C Flu Vaccine Patient Contacted: Unable or unnecessary to reach patient: Patient already scheduled Updated appointment notes Navigation Signature: Vivienne Izquierdo MA April 28, 2024 9:48 AM Vivienne Izquierdo MA 05/11/2024 4:46 PM Signed POPULATION HEALTH NAVIGATION OUTREACH Action/FYI Orders removed since provider did not sign within 7 days and encounter closed. Please have the office reach out to the patient to coordinate any further testing/appointment needs. Reason for Outreach Care Gap/HCC or Scheduling Wellness Visits Vivienne Izquierdo MA May 11, 2024 4:43 PM Allergies As of Date: 04/28/2024 Noted Allergy Reaction TETANUS VACCINES AND TOXOID 12/26/2011 10 - Anaphylaxis CODEINE 07/03/2012 14 - Other: See Comments Comments: Patient states it feels like bugs are crawling on her PENICILLINS 12/26/2011 2 - Rash SEASONAL ALLERGIES 12/27/2011 14 - Other: See Comments SULFA (SULFONAMIDE ANTIBIOTICS) 12/26/2011 2 - Rash Date Reviewed: 04/28/2024 Reviewed by: Gil Garnica LPN - Fully Assessed Reason for Visit: Population Health Navigation Outreach [[id number]] Cmt: SONDRA CLARK PCSAugusta Primary Visit Diagnosis:Type 2 diabetes mellitus without complication, without long-term current use of insulin (HCC) [E11.9] Prescriptions as of 05/11/2024 - tirzepatide (MOUNJARO) 2.5 mg/0.5 mL pen injector Inject 2.5 mg subcutaneously one time a week. - lisinopril (ZESTRIL) 20 mg tablet Take 1 tablet by mouth once daily. - albuterol HFA (PROVENTIL HFA, VENTOLIN HFA) 90 mcg/actuation inhaler TAKE 2 PUFFS BY MOUTH EVERY 4 HOURS NEEDED - apixaban (ELIQUIS) 5 mg tab(s) Take 1 tablet by mouth two times a day. - amLODIPine (NORVASC) 10 mg tablet Take 1 tablet by mouth once daily. - metFORMIN (GLUCOPHAGE) 500 mg tablet Take 1 tablet by mouth daily with breakfast. - ergocalciferol 50,000 unit capsule (VITAMIN D2, DRISDOL) Take 1 capsule by mouth one time a week. - uepypbnnoog-ojfdrxvca-kcxfvtts (TRELEGY ELLIPTA) 100-62.5-25 mcg inhalation powder Inhale 1 Puff as instructed once daily. - atorvastatin (LIPITOR) 80 mg tablet Take 1 tablet by mouth once daily. - metoprolol succinate ER (TOPROL XL) 25 mg 24 hr tablet Take 1 tablet by mouth once daily. - Lancets lancets Test blood sugar(s) 1 times daily. Dx: Type 2 DM - Controlled E11.9 Insulin: No - blood sugar diagnostic (BLOOD GLUCOSE TEST) test strip Test blood sugar(s) 1 times daily. Dx: Type 2 DM - Controlled E11.9 Insulin: Yes - vit A,C,L-Ukxp-Iusnda (PRESERVISION AREDS) 7,160-113-100 bmbn-sz-rxpw tab Take 2 tablets by mouth. - aspirin, enteric coated (ASPIRIN LOW DOSE) 81 mg EC tablet Take 1 tablet by mouth once daily. Problem List As Of Date 04/28/2024 Noted Resolved Hyperlipidemia [E78.5] HTN (hypertension) [I10] 01/15/2012 Fracture of proximal humerus [S42.209A] 03/24/2014 02/19/2018 Other emphysema (HCC) [J43.8] 12/09/2014 07/20/2020 Osteopenia [M85.80] 09/21/2015 History of colonic polyps [Z86.0100] 11/07/2016 Lung nodule [R91.1] 03/09/2020 COPD with chronic bronchitis (HCC) [J44.89] 07/20/2020 Type 2 diabetes mellitus without complication, *01/16/2021 Coronary artery calcification [I25.10] 06/25/2021 Obesity, Class I, BMI 30-34.9 [E66.811] 11/29/2021 Fatty liver [K76.0] 02/25/2023 Atrial fibrillation with RVR (HCC) [I48.91] 02/25/2023 Obesity, Class II, BMI 35-39.9 [E66.812] 10/03/2023 Paroxysmal atrial fibrillation (HCC) [I48.0] 10/03/2023 On apixaban therapy [Z79.01] 10/03/2023 Encounter Status:Closed by VIVIENNE IZQUIERDO on 05/11/24[facility]12-26-2024 History of Present illness Narrative* Hoda Cyr MD - 02/12/2024 2:45 PM EST Images from the original note were not included. . [facility] Patient name: Emily Lopez PCP: Rober Rubio MD CC: COPD HPI: Emily Lopez 73 year old female former 30 pack year smoker, quitting in 2010 with PMH significant for COPD, HTN, legally blind last seen by me in 2020. At that time her inhaled therapy consisted of Trelegy Ellipta, as needed albuterol and nocturnal oxygen. Today she states she has been more short of breath with less activity. She attributes this to her truncal obesity. Asking about aidsto help her lose weight. She has been trying to walk more regularly on the treadmill. She denies chronic cough, wheezing. She does have some difficulty expectorating phlegm. She has not been ill withany upper respiratory infection nor required hospitalization. She has been participating in lung can cer screening with last imaging showing bilateral areas of atelectasis and stable pulmonary nodules. DATA: PFT 2020: Imaging / Diagnostic Studies: DATE OF EXAM: Feb 02 2024 1:58PM [facility] 0561 - CT LUNG FOLLOWUP WO IVCON / PROCEDURE REASON: Lung nodules COMPARISON: Prior lung screen dated 07/23/2023 RESULT: Are nodules present? Yes, 1-5 nodules Lung nodule comments: 4 mm left lower lobe nodule (196) unchanged. 4 mm subpleural right lower lobe nodule (184) unchanged. 4 mm left upper lobe nodule (130) unchanged. 3 mm right lower lobe nodule (144) unchanged. Other findings: Moderate to severe coronary calcifications. Mitral annular calcification. Aortic wall calcifications. Degenerative changes of the thoracic spine. Diffuse bronchial thickening with mild upper lobe emphysema and scattered lower linear opacities likely atelectasis. Incidental coronary calcium as automatically processed and calculated using AI: Total Coronary Calcium Score = [100+] Agatston Units Percentile Rank (age and gender matched relative to reference population): [75th-100th] percentile* [* https://www.crane-nhlbi.org/calcium/input.aspx] PAST MEDICAL HISTORY Diagnosis Date COPD (chronic obstructive pulmonary disease) (HCC) HTN (hypertension) 01/15/2012 Hyperlipidemia Macular degeneration Meniere's disease ALLERGIES Allergen Reactions Tetanus Vaccines An* Anaphylaxis Codeine Other: See Comments Patient states it feels like bugs are crawling on her Penicillins Rash Seasonal Allergies Other: See Comments Sulfa (Sulfonamide * Rash apixaban (ELIQUIS) 5 mg tab(s) Take 1 tablet by mouth two times a day. amLODIPine (NORVASC) 10 mg tablet Take 1 tablet by mouth once daily. lisinopril (ZESTRIL) 30 mg tablet Take 1 tablet by mouth once daily. metFORMIN (GLUCOPHAGE) 500 mg tablet Take 1 tablet by mouth daily with breakfast. ergocalciferol 50,000 unit capsule (VITAMIN D2, DRISDOL) Take 1 capsule by mouth one time a week. albuterol HFA (PROAIR HFA) 90 mcg/actuation inhaler Inhale 2 Puffs as instructed every 4 hours as needed. vazbynrupgl-bavpmwosw-dolksnjz (TRELEGY ELLIPTA) 100-62.5-25 mcg inhalation powder Inhale 1 Puff asinstructed once daily. atorvastatin (LIPITOR) 80 mg tablet Take 1 tablet by mouth once daily. metoprolol succinate ER (TOPROL XL) 25 mg 24 hr tablet Take 1 tablet by mouth once daily. vit A,C,Q-Gjpx-Eekszf (PRESERVISION AREDS) 7,160-113-100 jfvf-mv-cxxd tab Take 2 tablets by mouth. aspirin, enteric coated (ASPIRIN LOW DOSE) 81 mg EC tablet Take 1 tablet by mouth once daily. semaglutide (RYBELSUS) 3 mg tablet Take 1 tablet by mouth daily before breakfast. Take 30 minutes before the first food, beverage, or other oral medications of the day with no more than 4 ounces of plain water (Patient not taking: Reported on 02/02/2024) Lancets lancets Test blood sugar(s) 1 times daily. Dx: Type 2 DM - Controlled E11.9 Insulin: No (Patient not taking: Reported on 10/03/2023) blood sugar diagnostic (BLOOD GLUCOSE TEST) test strip Test blood sugar(s) 1 times daily. Dx: Type 2 DM - Controlled E11.9 Insulin: Yes (Patient not taking: Reported on 10/03/2023) Social History Tobacco Use Smoking status: Former Current packs/day: 0.00 Average packs/day: 0.8 packs/day for 40.8 years (30.6 ttl pk-yrs) Types: Cigarettes Start date: 02/17/1970 Quit date: 11/26/2010 Years since quittin.2 Smokeless tobacco: Never Vaping Use Vaping status: Never Used Substance Use Topics Alcohol use: Yes Comment: 2 galsses of wine 1-2 times per week Drug use: No FAMILY HISTORY Problem Relation Age of Onset Diabetes Mother Thyroid Mother Diabetes Father COPD Father smoker Diabetes Sister Bipolar disorder Sister Bipolar disorder Daughter other (10 grandchildren) Grandchild Cancer No Family History PAST SURGICAL HISTORY Procedure Laterality Date APPENDECTOMY CHOLECYSTECTOMY COLONOSCOPY 08/27/2021 repeat in 5 years COLONOSCOPY FLX DX W/COLLJ SPEC WHEN PFRMD 12/04/2016 Colonoscopy - regular villous adenoma recommended 3 year follow-up PAST SURGICAL HISTORY OF exploratory lap for endometriosis SURGERY (GENERAL SURGERY) CONSULT 1997 LEFT ARM SURGERY TONSILLECTOMY HX TOTAL ABDOM HYSTERECTOMY age 42 PMH, Social history, family history and surgical history reviewed and updated in EMR REVIEW OF SYSTEMS: CONSTITUTIONAL: No fevers, chills, nightsweats, unintended weight loss HEENT: Denies nasal congestion/sinus symptoms, problematic allergy problems. CARDIOVASCULAR: No chest pain, palpitations PULM: See HPI GI: No dysphagia/odynophagia, problematic reflux INTEGUMENTARY: No new skin changes PHYSICAL EXAMINATION: BP 124/84[150/74[ Pulse 92 Wt 200 lb 3.2 oz (90.8kg) SpO2 96% General Appearance: Obese female, NAD. Skin: Skin color, texture, turgor normal, no suspicious rashes or lesions. Head: Normocephalic, no masses, lesions, tenderness or abnormalities. Neck: No masses or adenopathy Chest wall: Kyphosis. Lungs: Not labored, normal to percussion, rhonchi on the right Heart: Regular rate and rhythm, no murmurs. Extremities: Mild edema, no clubbing. Assessment/Plan: 1. Moderate COPD -Already on triple inhaler therapy -Encouraged more often usage of albuterol -Update PFTs at next visit 2. Former cigarette smoker -Continue tobacco free state -Former smoker with sequelae of COPD -Participating in lung cancer screening 3. Class II obesity -BMI 37 -Instructed to speak to her primary care physician regarding possibility of Adipex or Ozempic 4. Atelectasis -Encouraged activity -Instructed patient to obtain OTC Mucinex Hoda Cyr MD [facility] NoteHNO ID: [id number] Author: HODA CYR MD Service: ? Author Type: Physician Type: Progress Notes Filed: 02/12/2024 17:23 Note Text: . [facility] Patient name: Emily Loepz PCP: Rober Rubio MD CC: COPD HPI: Emily Lopez 73 year old female former 30 pack year smoker, quitting in 2010 with PMH significant for COPD, HTN, legally blind last seen by me in 2020. At that time her inhaled therapy consisted of Trelegy Ellipta, as needed albuterol and nocturnal oxygen. Today she states she has been more short of breath with less activity. She attributes this to her truncal obesity. Asking about aids to help her lose weight. She has been trying to walk more regularly on the treadmill. She denies chronic cough, wheezing. She does have some difficulty expectorating phlegm. She has not been ill with any upper respiratory infection nor required hospitalization. She has been participating in lung cancer screening with last imaging showing bilateral areas of atelectasis and stable pulmonary nodules. DATA: PFT 2020: Imaging / Diagnostic Studies: DATE OF EXAM: Feb 02 2024 1:58PM [facility] 0561 - CT LUNG FOLLOWUP WO IVCON / PROCEDURE REASON: Lung nodules COMPARISON: Prior lung screen dated 07/23/2023 RESULT: Are nodules present? Yes, 1-5 nodules Lung nodule comments: 4 mm left lower lobe nodule (196) unchanged. 4 mm subpleural right lower lobe nodule (184) unchanged. 4 mm left upper lobe nodule (130) unchanged. 3 mm right lower lobe nodule (144) unchanged. Other findings: Moderate to severe coronary calcifications. Mitral annular calcification. Aortic wall calcifications. Degenerative changes of the thoracic spine. Diffuse bronchial thickening with mild upper lobe emphysema and scattered lower linear opacities likely atelectasis. Incidental coronary calcium as automatically processed and calculated using AI: Total Coronary Calcium Score = [100+] Agatston Units Percentile Rank (age and gender matched relative to reference population): [75th-100th] percentile* [* https://[email or web address]-[email or web address]/calcium/input.aspx] PAST MEDICAL HISTORY Diagnosis Date COPD (chronic obstructive pulmonary disease) (HCC) HTN (hypertension) 01/15/2012 Hyperlipidemia Macular degeneration Meniere's disease ALLERGIES Allergen Reactions Tetanus Vaccines An* Anaphylaxis Codeine Other: See Comments Patient states it feels like bugs are crawling on her Penicillins Rash Seasonal Allergies Other: See Comments Sulfa (Sulfonamide * Rash apixaban (ELIQUIS) 5 mg tab(s) Take 1 tablet by mouth two times a day. amLODIPine (NORVASC) 10 mg tablet Take 1 tablet by mouth once daily. lisinopril (ZESTRIL) 30 mg tablet Take 1 tablet by mouth once daily. metFORMIN (GLUCOPHAGE) 500 mg tablet Take 1 tablet by mouth daily with breakfast. ergocalciferol 50,000 unit capsule (VITAMIN D2, DRISDOL) Take 1 capsule by mouth one time a week. albuterol HFA (PROAIR HFA) 90 mcg/actuation inhaler Inhale 2 Puffs as instructed every 4 hours as needed. ituphunsjfa-knjnrfjuf-lxptjmxa (TRELEGY ELLIPTA) 100-62.5-25 mcg inhalation powder Inhale 1 Puff as instructed once daily. atorvastatin (LIPITOR) 80 mg tablet Take 1 tablet by mouth once daily. metoprolol succinate ER (TOPROL XL) 25 mg 24 hr tablet Take 1 tablet by mouth once daily. vit A,C,G-Kjcc-Eejucy (PRESERVISION AREDS) 7,160-113-100 aecv-qq-djan tab Take 2 tablets by mouth. aspirin, enteric coated (ASPIRIN LOW DOSE) 81 mg EC tablet Take 1 tablet by mouth once daily. semaglutide (RYBELSUS) 3 mg tablet Take 1 tablet by mouth daily before breakfast. Take 30 minutes before the first food, beverage, or other oral medications of the day with no more than 4 ounces of plain water (Patient not taking: Reported on 02/02/2024) Lancets lancets Test blood sugar(s) 1 times daily. Dx: Type 2 DM - Controlled E11.9 Insulin: No (Patient not taking: Reported on 10/03/2023) blood sugar diagnostic (BLOOD GLUCOSE TEST) test strip Test blood sugar(s) 1 times daily. Dx: Type 2 DM - Controlled E11.9 Insulin: Yes (Patient not taking: Reported on 10/03/2023) Social History Tobacco Use Smoking status: Former Current packs/day: 0.00 Average packs/day: 0.8 packs/day for 40.8 years (30.6 ttl pk-yrs) Types: Cigarettes Start date: 02/17/1970 Quit date: 11/26/2010 Years since quittin.2 Smokeless tobacco: Never Vaping Use Vaping status: Never Used Substance Use Topics Alcohol use: Yes Comment: 2 galsses of wine 1-2 times per week Drug use: No FAMILY HISTORY Problem Relation Age of Onset Diabetes Mother Thyroid Mother Diabetes Father COPD Father smoker Diabetes Sister Bipolar disorder Sister Bipolar disorder Daughter other (10 grandchildren) Grandchild Cancer No Family History PAST SURGICAL HISTORY Procedure Laterality Date APPENDECTOMY CHOLECYSTECTOMY COLONOSCOPY 08/27/2021 (more content not included)...[facility]12-23-2024 Telephone encounter Note* Telephone Encounter - Stacey Cartwright LPN - 02/09/2024 9:21 AM EST Prescription Refill Information The patient has been identified by name and date of : Yes Caregiver verified no other encounters exist for this prescription request: Yes Caregiver confirmed with patient/requestor that no other refills are due, in the near future, with this provider at this time: Yes The last office visit in the department: 10/28/23 Does the patient have a future office visit with this provider/department: Yes Requested Prescriptions Pending Prescriptions Disp Refills apixaban (ELIQUIS) 5 mg tab(s) 180 tablet 1 Sig: Take 1 tablet by mouth two times a day. Stacey Cartwright LPN February 09, 2024 9:26 AM [facility]12-23-2024 Miscellaneous Notes* Telephone Encounter - Stacey Cartwright LPN - 02/09/2024 9:21 AM EST Prescription Refill Information The patient has been identified by name and date of : Yes Caregiver verified no other encounters exist for this prescription request: Yes Caregiver confirmed with patient/requestor that no other refills are due, in the near future, with this provider at this time: Yes The last office visit in the department: 10/28/23 Does the patient have a future office visit with this provider/department: Yes Requested Prescriptions Pending Prescriptions Disp Refills apixaban (ELIQUIS) 5 mg tab(s) 180 tablet 1 Sig: Take 1 tablet by mouth two times a day. Stacey Cartwright LPN February 09, 2024 9:26 AM [facility]12-16-[facility]24 Instructions* Patient Instructions* Martin Benites APRN.CNP - 02/02/2024 2:26 PM EST Lung nodule/s: all previously seen nodule/s have not changed in size or characteristic/resolved andthere are no new nodules of concern. Please return in one year for the following 2 visits on the same day: Annual low-dose CT chest Lung cancer screening Provider visit. This recommendation is subject to change pending the final report from radiology. I will notify you of the final radiology report recommendations when available by Neuronext message, letter, or phone call. We will also notify your referring provider/PCP of the results and recommendations. If you didn t schedule this before you left the office or need to reschedule, you can call in to schedule it anytime: [place] [facility] [phone] [facility] [phone] All other [facility] locations [phone] Feel free to reach out for any questions or concerns, Martin Benites APRN.CNP Lung Cancer Screening [phone] documented in this encounter[facility]12-16-2024 NoteHNO ID: [id number] Author: MARTIN BENITES APRN.CNP Service: ? Author Type: Nurse Practitioner Type: Progress Notes Filed: 02/02/2024 15:04 Note Text: Chief Complaint: 6 mos follow-up from LDCT scan dated 07/23/2023 for LUNG RADS Category 3 finding of new part solid RUL nodule. History of Present Illness: Emily Lopez is a 73 year old female who is presenting today for pulmonary nodule follow-up. Nodule was found through lung cancer screening on LDCT. Patient is a former smoker with a 30.6 pack year history. Since the patient's last visit the patient has not had new medical issues or hospitalizations. No recent respiratory infections/pneumonia. The patient does not require assistance with normal activities of daily living. Modified Medical Research [place] Dyspnea Scale (MMRC) I only get breathless with strenous exercise 0 Patient denies SOB with their daily activity. No wheezing or dyspnea. Patient denies feeling of chest tightness/congestion in the chest. Patient does not have a new or concerning cough, and denies hemoptysis. Patient does not have a chronic daily cough. Denies regular or recent fevers/chills. Patient does not have any significant unintentional weight loss. Patient denies having any respiratory infections or COVID-19 in the past few months. Occasional cough with allergies-white sputum. Last 12 Encounter Wt Readings: Date: Wt: 02/02/2024 89.8 kg (198 lb) 10/03/2023 87.4 kg (192 lb 10.9 oz) 08/08/2023 86.2 kg (190 lb) 07/23/2023 84.7 kg (186 lb 11.7 oz) 07/16/2023 85.3 kg (188 lb) 04/14/2023 82.1 kg (181 lb) 02/24/2023 82.6 kg (182 lb) 01/31/2023 76.6 kg (168 lb 14.4 oz) 06/01/2022 82.6 kg (182 lb) 01/15/2022 81.6 kg (180 lb) 11/29/2021 79.8 kg (176 lb) 08/27/2021 81.6 kg (180 lb) Medication Treatment: Are you using regular inhalers?: Yes Trelegy Past Medical History: PAST MEDICAL HISTORY Diagnosis Date COPD (chronic obstructive pulmonary disease) (HCC) HTN (hypertension) 01/15/2012 Hyperlipidemia Macular degeneration Meniere's disease Surgical Hx: PAST SURGICAL HISTORY Procedure Laterality Date APPENDECTOMY CHOLECYSTECTOMY COLONOSCOPY 08/27/2021 repeat in 5 years COLONOSCOPY FLX DX W/COLLJ SPEC WHEN PFRMD 12/04/2016 Colonoscopy - regular villous adenoma recommended 3 year follow-up PAST SURGICAL HISTORY OF exploratory lap for endometriosis SURGERY (GENERAL SURGERY) CONSULT 1997 LEFT ARM SURGERY TONSILLECTOMY HX TOTAL ABDOM HYSTERECTOMY age 42 Family Hx: FAMILY HISTORY Problem Relation Age of Onset Diabetes Mother Thyroid Mother Diabetes Father COPD Father smoker Diabetes Sister Bipolar disorder Sister Bipolar disorder Daughter other (10 grandchildren) Grandchild Cancer No Family History Allergies: ALLERGIES Allergen Reactions Tetanus Vaccines An* Anaphylaxis Codeine Other: See Comments Patient states it feels like bugs are crawling on her Penicillins Rash Seasonal Allergies Other: See Comments Sulfa (Sulfonamide * Rash Social History Tobacco Use: Types: Cigarettes Review Of Systems: See HPI for ROS All of the remainder systems were reviewed and negative. PHYSICAL EXAMINATION: BP 114/70 Pulse 101 Resp 18 Wt 198 lb (89.8kg) SpO2 95% General appearance: well appearing, in no acute distress, and alert Skin: skin color, texture, turgor normal, no rashes or lesions Neck: Supple, no adenopathy; thyroid symmetric, normal size Respiratory: lungs clear to auscultation no wheezing or rhonchi Cardiovascular: Negative. RRR without murmur, gallop, or rubs. No ectopy Musculoskeletal: Extremities normal. No deformities, edema, or skin discoloration. Neuro: Oriented X 3 Data Review I have visually reviewed imaging and testing below CT imaging done today was reviewed and analyzed independently by practitioner and awaiting radiology review. CT was compared to prior CT chest. Prior PFTS: SPIROMETRY - BASELINE AND POST DILATOR ([id number]) - ordered on 03/08/[address], [place] [address] Test Date: 2020-03-08 Pat Name: EMILY LOPEZ Department: Room: Gender: Female Elder Assistant: STEPHY Scales : 1950 Requested By: Rober RUBIO Order Number: [id number] Reading MD: Hoda Cyr M.D. Interpretive Statements 2 Puffs of albuterol (180mcg) delivered by MDI via Aerochamber HRpre =101 /min, HRpost= 101/min. ATS/ERS acceptability and repeatability standards for spirometry met. IMPRESSION: Spirometry indicates moderate obstruction. There was not a significant bronchodilator response. Electronically Signed On 03-09-2020 16:26:46 EST by Hoda Cyr M.D. Site: WO ID: [id number] Name: EMILY LOPEZ Visit Date: 03/08/2020 Second ID: [id number] Referring Doctor: Rober MONTERO Elder Assistant: STEPHY Scales Age: 69 : 1950 Sex: Female Race: Height: 61.80 In (more content not included)...[facility] 02-02-2024 History of Present illness Narrative* Martin Benites APRN.DRYING TUNNEL OPERATOR - 02/02/2024 2:18 PM EST Images from the original note were not included. Chief Complaint: 6 mos follow-up from LDCT scan dated 07/23/2023 for LUNG RADS Category 3 finding of new part solid RUL nodule. History of Present Illness: Emily Lopez is a 73 year old female who is presenting today for pulmonary nodule follow-up. Nodule was found through lung cancer screening on LDCT. Patient is a former smoker with a 30.6 pack year history. Since the patient's last visit the patient has not had new medical issues or hospitalizations. No recent respiratory infections/pneumonia. The patient does not require assistance with normal activities of daily living. Modified Medical Research [place] Dyspnea Scale (MMRC) I only get breathless with strenous exercise 0 Patient denies SOB with their daily activity. No wheezing or dyspnea. Patient denies feeling of chest tightness/congestion in the chest. Patient does not have a new or concerning cough, and denies hemoptysis. Patient does not have a chronic daily cough. Denies regular or recent fevers/chills. Patient does not have any significant unintentional weight loss. Patient denies having any respiratory infections or COVID-19 in the past few months. Occasional cough with allergies-white sputum. Last 12 Encounter Wt Readings: Date: Wt: 02/02/2024 89.8 kg (198 lb) 10/03/2023 87.4 kg (192 lb 10.9 oz) 08/08/2023 86.2 kg (190 lb) 07/23/2023 84.7 kg (186 lb 11.7 oz) 07/16/2023 85.3 kg (188 lb) 04/14/2023 82.1 kg (181 lb) 02/24/2023 82.6 kg (182 lb) 01/31/2023 76.6 kg (168 lb 14.4 oz) 06/01/2022 82.6 kg (182 lb) 01/15/2022 81.6 kg (180 lb) 11/29/2021 79.8 kg (176 lb) 08/27/2021 81.6 kg (180 lb) Medication Treatment: Are you using regular inhalers?: Yes Trelegy Past Medical History: PAST MEDICAL HISTORY Diagnosis Date COPD (chronic obstructive pulmonary disease) (HCC) HTN (hypertension) 01/15/2012 Hyperlipidemia Macular degeneration Meniere's disease Surgical Hx: PAST SURGICAL HISTORY Procedure Laterality Date APPENDECTOMY CHOLECYSTECTOMY COLONOSCOPY 08/27/2021 repeat in 5 years COLONOSCOPY FLX DX W/COLLJ SPEC WHEN PFRMD 12/04/2016 Colonoscopy - regular villous adenoma recommended 3 year follow-up PAST SURGICAL HISTORY OF exploratory lap for endometriosis SURGERY (GENERAL SURGERY) CONSULT 1997 LEFT ARM SURGERY TONSILLECTOMY HX TOTAL ABDOM HYSTERECTOMY age 42 Family Hx: FAMILY HISTORY Problem Relation Age of Onset Diabetes Mother Thyroid Mother Diabetes Father COPD Father smoker Diabetes Sister Bipolar disorder Sister Bipolar disorder Daughter other (10 grandchildren) Grandchild Cancer No Family History Allergies: ALLERGIES Allergen Reactions Tetanus Vaccines An* Anaphylaxis Codeine Other: See Comments Patient states it feels like bugs are crawling on her Penicillins Rash Seasonal Allergies Other: See Comments Sulfa (Sulfonamide * Rash Social History Tobacco Use: Types: Cigarettes Review Of Systems: See HPI for ROS All of the remainder systems were reviewed and negative. PHYSICAL EXAMINATION: BP 114/70 Pulse 101 Resp 18 Wt 198 lb (89.8kg) SpO2 95% General appearance: well appearing, in no acute distress, and alert Skin: skin color, texture, turgor normal, no rashes or lesions Neck: Supple, no adenopathy; thyroid symmetric, normal size Respiratory: lungs clear to auscultation no wheezing or rhonchi Cardiovascular: Negative. RRR without murmur, gallop, or rubs. No ectopy Musculoskeletal: Extremities normal. No deformities, edema, or skin discoloration. Neuro: Oriented X 3 Data Review I have visually reviewed imaging and testing below CT imaging done today was reviewed and analyzed independently by practitioner and awaiting radiology review. CT was compared to prior CT chest. Prior PFTS: SPIROMETRY - BASELINE AND POST DILATOR ([id number]) - ordered on 03/08/20 [facility] [address] [place] [address] Test Date: 2020-03-08 Pat Name: EMILY LOPEZ Department: Room: Gender: Female Elder Assistant: STEPHY Scales : 1950 Requested By: Rober RUBIO Order Number: [id number] Reading MD: Hoda Cyr M.D. Interpretive Statements 2 Puffs of albuterol (180mcg) delivered by MDI via Aerochamber HRpre =101 /min, HRpost= 101/min. ATS/ERS acceptability and repeatability standards for spirometry met. IMPRESSION: Spirometry indicates moderate obstruction. There was not a significant bronchodilator response. Electronically Signed On 03-09-2020 16:26:46 EST by Hoda Cyr M.D. Site: WO ID: [id number] Name: EMILY LOPEZ Visit Date: 03/08/2020 Second ID: [id number] Referring Doctor: Rober MONTERO Elder Assistant: STEPHY Scales Age: 69 : 1950 Sex: Female Race: Height: 61.80 Inches Weight: 187.00 Lbs BSA: 1.85 Order IDs: [id number] Requested Test(s): Spirometry - baselline and post dilator Post Test Comments: 2 Puffs of albuterol (180mcg) delivered by MDI via Aerochamber HRpre =101 /min, HRpost= 101/min. ATS/ERS acceptability and repeatability standards for spirometry met. Review Status: Not Reviewed Pre-Bronch Post-Bronch Pred LLN ULN Actual %Pred Actual %Chng SPIROMETRY FVC (L) 2.63 1.92 3.38 2.05 77 2.12 3 FEV1 (L) 2.05 1.49 2.59 1.19 57 1.23 3 FEV1/FVC (%) 78 65 9 0 58 73 58 FEF 25% (L/sec) 4.51 2.36 6.65 1.58 35 1.57 -1 FEF 50% (L/sec) 3.34 1.53 5.15 0.68 20 0.76 11 FEF 75% (L/sec) 0.43 0.16 1.13 0.21 48 0.25 21 FEF 25-75% (L/sec) 1.78 0.82 3.15 0.52 29 0.58 11 FEF Max (L/sec) 5.31 3.16 59 3.25 2 FIVC (L) 2.11 1.90 -9 FIF 50% (L/sec) 3.36 1.92 4.79 3.92 116 3.19 -18 FIF Max (L/sec) 3.93 3.21 -18 FET (sec) 8.71 8.84 1 Back Extrap Vol (L) 0.07 0.03 -50 Time To FEFmax (sec) 0.079 0.064 -18 Assessment and Plan: 1. Pulmonary Nodule: RUL lung nodule identified on the last CT have resolved/decreased in size, andno new nodules of concern were seen on the exam. Recommended follow-up in one year. This recommendation is subject to change, pending final radiology report. The patient was counseled on the importance of adherence to annual LDCT lung cancer screening, impact of comorbidities and ability or willingness to undergo diagnosis and treatment. 2. Nicotine Dependence, Former: Continue to abstain from smoking cigarettes. Martin Benites APRN.CNP February 02, 2024 2:21 PM I spent a total of 30 minutes on the date of the service which included preparing to see the patient, twru-so-beqq patient care, completing clinical documentation, performing a medically appropriate examination, counseling and educating the patient/family/caregiver, ordering medications, tests, or p rocedures, communicating with other HCPs (not separately reported), independently interpreting results (not separately reported), communicating results to the patient/family/caregiver, and care coordination (not separately reported). documented in [facility]12-[facility] History of Present illness Narrative* Reef Becky Gaxiola RT(R) - 02/02/2024 1:40 PM EST Radiology Service Progress Note PATIENT NAME: Emily Lopez DATE OF SERVICE: February 02, 2024 TIME: 3:00 PM PATIENT IDENTITY VERIFICATION COMPLETED USING TWO (2) IDENTIFIERS: Name and Date of confirmedby patient verbally. FALL SCREENING: Has the patient had 2 falls in the last year or 1 fall with injury or currently using an Ambulatory Assistive Device (Walker, Cane, Wheelchair, Crutches, etc.)? No PATIENT GENDER DATA: Female. status: : No status: NO. PATIENT RELEVANT IMPLANT DATA REVIEWED: Yes PATIENT PRESENTS WITH AN IMPLANTABLE OR ATTACHED RECOOPERER: No RADIOLOGY DEPARTMENT: CT; Exam(s) Completed: Lung Screening PERIPHERAL IV DATA: Not applicable SIGNED BY: RT Heidi(Viv) February 02, 2024 3:00 PM documented in this encounterOhio Valley Hospital12-16-2024 NoteHNO ID: [id number] Author: BECKY ESQUIVEL RT(Viv) Service: ? Author Type: Elder Assistant Type: Progress Notes Filed: 02/02/2024 15:00 Note Text: Radiology Service Progress Note PATIENT NAME: Emily Lopez DATE OF SERVICE: February 02, 2024 TIME: 3:00 PM PATIENT IDENTITY VERIFICATION COMPLETED USING TWO (2) IDENTIFIERS: Name and Date of confirmed by patient verbally. FALL SCREENING: Has the patient had 2 falls in the last year or 1 fall with injury or currently using an Ambulatory Assistive Device (Walker, Cane, Wheelchair, Crutches, etc.)? No PATIENT GENDER DATA: Female. status: : No status: NO. PATIENT RELEVANT IMPLANT DATA REVIEWED: Yes PATIENT PRESENTS WITH AN IMPLANTABLE OR ATTACHED RECOOPERER: No RADIOLOGY DEPARTMENT: CT; Exam(s) Completed: Lung Screening PERIPHERAL IV DATA: Not applicable SIGNED BY: RT Heidi(R) February 02, 2024 3:00 [facility]12-04-2024 NotePatient Outreach (INTMMN) JESSICAEMILY Jose F ([id number]) 1950 F Date Time Provider Department 01/21/24 ROBER RUBIO During your visit today, we recorded the following information about you: Allergies As of Date: 01/21/2024 Noted Allergy Reaction TETANUS VACCINES AND TOXOID 12/26/2011 10 - Anaphylaxis CODEINE 07/03/2012 14 - Other: See Comments Comments: Patient states it feels like bugs are crawling on her PENICILLINS 12/26/2011 2 - Rash SEASONAL ALLERGIES 12/27/2011 14 - Other: See Comments SULFA (SULFONAMIDE ANTIBIOTICS) 12/26/2011 2 - Rash Date Reviewed: 11/04/2023 Reviewed by: Chinyere Wilson OCCA - Fully Assessed Visit Diagnosis:Encounter for screening mammogram for breast cancer [Z12.31] Order(s):[facility] SCREENING W RODDY [[id number]] Order #: [id number] FUTURE Prescriptions as of 01/26/2024 - amLODIPine (NORVASC) 10 mg tablet Take 1 tablet by mouth once daily. - apixaban (ELIQUIS) 5 mg tab(s) Take 1 tablet by mouth two times a day. - semaglutide (RYBELSUS) 3 mg tablet Take 1 tablet by mouth daily before breakfast. Take 30 minutes before the first food, beverage, or other oral medications of the day with no more than 4 ounces of plain water - lisinopril (ZESTRIL) 30 mg tablet Take 1 tablet by mouth once daily. - metFORMIN (GLUCOPHAGE) 500 mg tablet Take 1 tablet by mouth daily with breakfast. - ergocalciferol 50,000 unit capsule (VITAMIN D2, DRISDOL) Take 1 capsule by mouth one time a week. - albuterol HFA (PROAIR HFA) 90 mcg/actuation inhaler Inhale 2 Puffs as instructed every 4 hours as needed. - zribwnybhfw-qsbotoqtc-urebjqjq (TRELEGY ELLIPTA) 100-62.5-25 mcg inhalation powder Inhale 1 Puff as instructed once daily. - atorvastatin (LIPITOR) 80 mg tablet Take 1 tablet by mouth once daily. - metoprolol succinate ER (TOPROL XL) 25 mg 24 hr tablet Take 1 tablet by mouth once daily. - Lancets lancets Test blood sugar(s) 1 times daily. Dx: Type 2 DM - Controlled E11.9 Insulin: No - blood sugar diagnostic (BLOOD GLUCOSE TEST) test strip Test blood sugar(s) 1 times daily. Dx: Type 2 DM - Controlled E11.9 Insulin: Yes - vit A,C,Q-Tqwg-Dkrrtc (PRESERVISION AREDS) 7,160-113-100 uqhw-fe-wbgm tab Take 2 tablets by mouth. - aspirin, enteric coated (ASPIRIN LOW DOSE) 81 mg EC tablet Take 1 tablet by mouth once daily. Problem List As Of Date 01/21/2024 Noted Resolved Hyperlipidemia [E78.5] HTN (hypertension) [I10] 01/15/2012 Fracture of proximal humerus [S42.209A] 03/24/2014 02/19/2018 Other emphysema (HCC) [J43.8] 12/09/2014 07/20/2020 Osteopenia [M85.80] 09/21/2015 History of colonic polyps [Z86.0100] 11/07/2016 Lung nodule [R91.1] 03/09/2020 COPD with chronic bronchitis (HCC) [J44.89] 07/20/2020 Type 2 diabetes mellitus without complication, *01/16/2021 Coronary artery calcification [I25.10] 06/25/2021 Obesity, Class I, BMI 30-34.9 [E66.811] 11/29/2021 Fatty liver [K76.0] 02/25/2023 Atrial fibrillation with RVR (HCC) [I48.91] 02/25/2023 Obesity, Class II, BMI 35-39.9 [E66.812] 10/03/2023 Paroxysmal atrial fibrillation (HCC) [I48.0] 10/03/2023 On apixaban therapy [Z79.01] 10/03/2023 Encounter Status:Closed by [employer] on 01/26/24[facility] 12-23-2023 Telephone encounter Note* Telephone Encounter - Shantell Reyes LPN - 12/23/2023 11:38 AM EST Prescription Refill Information The patient has been identified by name and date of : Yes Caregiver verified no other encounters exist for this prescription request: Yes Caregiver confirmed with patient/requestor that no other refills are due, in the near future, with this provider at this time: Yes The last office visit in the department: 10/28/2023 Does the patient have a future office visit with this provider/department: Yes Requested Prescriptions Pending Prescriptions Disp Refills amLODIPine (NORVASC) 10 mg tablet 90 tablet 3 Sig: Take 1 tablet by mouth once daily. Shantell Reyes LPN December 23, 2023 11:39 AM [facility]11-[facility] Miscellaneous Notes* Telephone Encounter - Shantell Reyes LPN - 12/23/2023 11:38 AM EST Prescription Refill Information The patient has been identified by name and date of : Yes Caregiver verified no other encounters exist for this prescription request: Yes Caregiver confirmed with patient/requestor that no other refills are due, in the near future, with this provider at this time: Yes The last office visit in the department: 10/28/2023 Does the patient have a future office visit with this provider/department: Yes Requested Prescriptions Pending Prescriptions Disp Refills amLODIPine (NORVASC) 10 mg tablet 90 tablet 3 Sig: Take 1 tablet by mouth once daily. Shantell Reyes LPN December 23, 2023 11:39 AM documented in this encounter[facility]09-17-2024 NoteHNO ID: [id number] Author: EMILY ADAMS, DO Service: ? Author Type: Physician Type: Progress Notes Filed: 12/02/2023 10:10 Note Text: [facility] [place] DEPARTMENT OF VASCULAR SURGERY OUTPATIENT VISIT DATE November 04, 2023 OUTPATIENT VISIT TYPE ESTABLISHED SERVICE DATE: 11/04/2023 SERVICE TIME: 9:45 AM PRIMARY CARE PHYSICIAN: Rober Rubio MD HISTORY OF PRESENT ILLNESS: Ms. Lopez is a 73 year old female who presents today for a vascular surgery follow-up visit for carotid artery disease. Denies focal deficit. Does have claudication PAST MEDICAL HISTORY Diagnosis Date COPD (chronic obstructive pulmonary disease) (HCC) HTN (hypertension) 01/15/2012 Hyperlipidemia Macular degeneration Meniere's disease PAST SURGICAL HISTORY Procedure Laterality Date APPENDECTOMY CHOLECYSTECTOMY COLONOSCOPY 08/27/2021 repeat in 5 years COLONOSCOPY FLX DX W/COLLJ SPEC WHEN PFRMD 12/04/2016 Colonoscopy - regular villous adenoma recommended 3 year follow-up PAST SURGICAL HISTORY OF exploratory lap for endometriosis SURGERY (GENERAL SURGERY) CONSULT 1997 LEFT ARM SURGERY TONSILLECTOMY HX TOTAL ABDOM HYSTERECTOMY age 42 SOCIAL HISTORY Social History Tobacco Use Smoking status: Former Current packs/day: 0.00 Average packs/day: 0.8 packs/day for 40.8 years (30.6 ttl pk-yrs) Types: Cigarettes Start date: 02/17/1970 Quit date: 11/26/2010 Years since quittin.9 Smokeless tobacco: Never Vaping Use Vaping status: Never Used Substance Use Topics Alcohol use: Yes Comment: 2 galsses of wine 1-2 times per week Drug use: No MEDICATIONS: semaglutide (RYBELSUS) 3 mg tablet Take 1 tablet by mouth daily before breakfast. Take 30 minutes before the first food, beverage, or other oral medications of the day with no more than 4 ounces of plain water lisinopril (ZESTRIL) 30 mg tablet Take 1 tablet by mouth once daily. apixaban (ELIQUIS ORAL) Take by mouth. metFORMIN (GLUCOPHAGE) 500 mg tablet Take 1 tablet by mouth daily with breakfast. ergocalciferol 50,000 unit capsule (VITAMIN D2, DRISDOL) Take 1 capsule by mouth one time a week. albuterol HFA (PROAIR HFA) 90 mcg/actuation inhaler Inhale 2 Puffs as instructed every 4 hours as needed. fsibgecqlcj-zlnomnvqn-gnagdjiv (TRELEGY ELLIPTA) 100-62.5-25 mcg inhalation powder Inhale 1 Puff as instructed once daily. atorvastatin (LIPITOR) 80 mg tablet Take 1 tablet by mouth once daily. metoprolol succinate ER (TOPROL XL) 25 mg 24 hr tablet Take 1 tablet by mouth once daily. vit A,C,I-Xueo-Fgkjwe (PRESERVISION AREDS) 7,160-113-100 hevu-ow-xrhl tab Take 2 tablets by mouth. aspirin, enteric coated (ASPIRIN LOW DOSE) 81 mg EC tablet Take 1 tablet by mouth once daily. amLODIPine (NORVASC) 10 mg tablet Take 1 tablet by mouth once daily. Lancets lancets Test blood sugar(s) 1 times daily. Dx: Type 2 DM - Controlled E11.9 Insulin: No (Patient not taking: Reported on 10/03/2023) blood sugar diagnostic (BLOOD GLUCOSE TEST) test strip Test blood sugar(s) 1 times daily. Dx: Type 2 DM - Controlled E11.9 Insulin: Yes (Patient not taking: Reported on 10/03/2023) ALLERGIES: ALLERGIES Allergen Reactions Tetanus Vaccines An* Anaphylaxis Codeine Other: See Comments Patient states it feels like bugs are crawling on her Penicillins Rash Seasonal Allergies Other: See Comments Sulfa (Sulfonamide * Rash PHYSICAL EXAM: BP 146/70 (BP Site: Right Arm, BP Position: Sitting, BP Cuff Size: Regular Adult) Pulse 94 SpO2 97% General: Alert and oriented Integumentary: Normal color, no rash, no lesions. HEENT: EOM, pupils equal, round and reactive. Cardiovascular: Pulse regular. Lungs: No chest deformities or chest wall tenderness. Extremities: No deformity, no edema or tenderness, no joint swelling or clubbing. Neurological: Normal cognition and motor skills. Vascular: non palpable distal pulses Diagnostic tests reviewed for today's visit: Most recent labs Most recent imaging PVRs RIGHT SIDE Resting right ankle brachial index: 0.61 Right toe brachial index: 0.53 Abnormal ankle brachial index at rest diagnostic of peripheral artery disease. Abnormal toe brachial index at rest is evidence of peripheral artery disease. Right ankle: Moderate disease at rest. Aortic or bilateral iliofemoral disease. Right distal superficial femoral and/or popliteal disease. LEFT SIDE Resting left ankle brachial index: 0.46 Left toe brachial index: 0.42 Abnormal ankle brachial index at rest diagnostic of peripheral artery disease. Abnormal toe brachial index at rest is evidence of peripheral artery disease. Left ankle: Moderate disease at rest. Aortic or bilateral iliofemoral disease. Left superficial femoral disease. Left infrapopliteal disease. IMPRESSION: Ms. Lopez is a 73 year old female with carotid artery disease, peripheral arterial disease and subclavian stenosis . PLAN a (more content not included)...[facility]09-17-2024 History of Present illness Narrative* Emily Adams, - 11/04/2023 9:44 AM EDT Images from the original note were not included. [facility] [place] DEPARTMENT OF VASCULAR SURGERY OUTPATIENT VISIT DATE November 04, 2023 OUTPATIENT VISIT TYPE ESTABLISHED SERVICE DATE: 11/04/2023 SERVICE TIME: 9:45 AM PRIMARY CARE PHYSICIAN: Rober Rubio MD HISTORY OF PRESENT ILLNESS: Ms. Lopez is a 73 year old female who presents today for a vascular surgery follow-up visit for carotid artery disease. Denies focal deficit. Does have claudication PAST MEDICAL HISTORY Diagnosis Date COPD (chronic obstructive pulmonary disease) (HCC) HTN (hypertension) 01/15/2012 Hyperlipidemia Macular degeneration Meniere's disease PAST SURGICAL HISTORY Procedure Laterality Date APPENDECTOMY CHOLECYSTECTOMY COLONOSCOPY 08/27/2021 repeat in 5 years COLONOSCOPY FLX DX W/COLLJ SPEC WHEN PFRMD 12/04/2016 Colonoscopy - regular villous adenoma recommended 3 year follow-up PAST SURGICAL HISTORY OF exploratory lap for endometriosis SURGERY (GENERAL SURGERY) CONSULT 1997 LEFT ARM SURGERY TONSILLECTOMY HX TOTAL ABDOM HYSTERECTOMY age 42 SOCIAL HISTORY Social History Tobacco Use Smoking status: Former Current packs/day: 0.00 Average packs/day: 0.8 packs/day for 40.8 years (30.6 ttl pk-yrs) Types: Cigarettes Start date: 02/17/1970 Quit date: 11/26/2010 Years since quittin.9 Smokeless tobacco: Never Vaping Use Vaping status: Never Used Substance Use Topics Alcohol use: Yes Comment: 2 galsses of wine 1-2 times per week Drug use: No MEDICATIONS: semaglutide (RYBELSUS) 3 mg tablet Take 1 tablet by mouth daily before breakfast. Take 30 minutes before the first food, beverage, or other oral medications of the day with no more than 4 ounces of plain water lisinopril (ZESTRIL) 30 mg tablet Take 1 tablet by mouth once daily. apixaban (ELIQUIS ORAL) Take by mouth. metFORMIN (GLUCOPHAGE) 500 mg tablet Take 1 tablet by mouth daily with breakfast. ergocalciferol 50,000 unit capsule (VITAMIN D2, DRISDOL) Take 1 capsule by mouth one time a week. albuterol HFA (PROAIR HFA) 90 mcg/actuation inhaler Inhale 2 Puffs as instructed every 4 hours as needed. kpmiglyzpia-crfzlvcjl-olrwqwfa (TRELEGY ELLIPTA) 100-62.5-25 mcg inhalation powder Inhale 1 Puff asinstructed once daily. atorvastatin (LIPITOR) 80 mg tablet Take 1 tablet by mouth once daily. metoprolol succinate ER (TOPROL XL) 25 mg 24 hr tablet Take 1 tablet by mouth once daily. vit A,C,V-Urqj-Bxqvba (PRESERVISION AREDS) 7,160-113-100 yvkx-mx-tkge tab Take 2 tablets by mouth. aspirin, enteric coated (ASPIRIN LOW DOSE) 81 mg EC tablet Take 1 tablet by mouth once daily. amLODIPine (NORVASC) 10 mg tablet Take 1 tablet by mouth once daily. Lancets lancets Test blood sugar(s) 1 times daily. Dx: Type 2 DM - Controlled E11.9 Insulin: No (Patient not taking: Reported on 10/03/2023) blood sugar diagnostic (BLOOD GLUCOSE TEST) test strip Test blood sugar(s) 1 times daily. Dx: Type 2 DM - Controlled E11.9 Insulin: Yes (Patient not taking: Reported on 10/03/2023) ALLERGIES: ALLERGIES Allergen Reactions Tetanus Vaccines An* Anaphylaxis Codeine Other: See Comments Patient states it feels like bugs are crawling on her Penicillins Rash Seasonal Allergies Other: See Comments Sulfa (Sulfonamide * Rash PHYSICAL EXAM: BP 146/70 (BP Site: Right Arm, BP Position: Sitting, BP Cuff Size: Regular Adult) Pulse 94 [id number]% General: Alert and oriented Integumentary: Normal color, no rash, no lesions. HEENT: EOM, pupils equal, round and reactive. Cardiovascular: Pulse regular. Lungs: No chest deformities or chest wall tenderness. Extremities: No deformity, no edema or tenderness, no joint swelling or clubbing. Neurological: Normal cognition and motor skills. Vascular: non palpable distal pulses Diagnostic tests reviewed for today's visit: Most recent labs Most recent imaging PVRs RIGHT SIDE Resting right ankle brachial index: 0.61 Right toe brachial index: 0.53 Abnormal ankle brachial index at rest diagnostic of peripheral artery disease. Abnormal toe brachial index at rest is evidence of peripheral artery disease. Right ankle: Moderate disease at rest. Aortic or bilateral iliofemoral disease. Right distal superficial femoral and/or popliteal disease. LEFT SIDE Resting left ankle brachial index: 0.46 Left toe brachial index: 0.42 Abnormal ankle brachial index at rest diagnostic of peripheral artery disease. Abnormal toe brachial index at rest is evidence of peripheral artery disease. Left ankle: Moderate disease at rest. Aortic or bilateral iliofemoral disease. Left superficial femoral disease. Left infrapopliteal disease. IMPRESSION: Ms. Lopez is a 73 year old female with carotid artery disease, peripheral arterial disease and subclavian stenosis . PLAN and RECOMMENDATIONS: Recommend follow up in 6 months with repeat imaging Continue blood pressure and cholesterol control Continue current medications SIGNATURE: Emily Adams DO PATIENT NAME: Emily Lopez DATE: November 04, 2023 TIME: 9:45 AM documented in this encounter[facility]09-[facility] Telephone encounter Note * Telephone Encounter - Nilo Lainez - 10/30/2023 2:02 PM EDT Prescription Refill Information The patient has been identified by name and date of : Yes Caregiver verified no other encounters exist for this prescription request: Yes Caregiver confirmed with patient/requestor that no other refills are due, in the near future, with this provider at this time: Yes The last office visit in the department: 10/28/23 Does the patient have a future office visit with this provider/department: Yes Requested Prescriptions Pending Prescriptions Disp Refills semaglutide (RYBELSUS) 3 mg tablet 30 tablet 0 Sig: Take 1 tablet by mouth daily before breakfast. Take 30 minutes before the first food, beverage, or other oral medications of the day with no more than 4 ounces of plain water Nilo Lainez October 30, 2023 2:03 PM [facility]09-12-[facility] Miscellaneous Notes* Telephone Encounter - Nilo Lainez - 10/30/2023 2:02 PM EDT Prescription Refill Information The patient has been identified by name and date of : Yes Caregiver verified no other encounters exist for this prescription request: Yes Caregiver confirmed with patient/requestor that no other refills are due, in the near future, with this provider at this time: Yes The last office visit in the department: 10/28/23 Does the patient have a future office visit with this provider/department: Yes Requested Prescriptions Pending Prescriptions Disp Refills semaglutide (RYBELSUS) 3 mg tablet 30 tablet 0 Sig: Take 1 tablet by mouth daily before breakfast. Take 30 minutes before the first food, beverage, or other oral medications of the day with no more than 4 ounces of plain water Nilo Lainez October 30, 2023 2:03 PM documented in this encounterOhio [facility]09-10-2024 Telephone encounter Note * Telephone Encounter - Gris Guzman RN - 10/28/2023 4:53 PM EDT Pts son called and is notified of providers message. He voices understanding. Gris Guzman RN [facility]-10-2024 Miscellaneous Notes* Telephone Encounter - Gris Guzman RN - 10/28/2023 4:53 PM EDT Pts son called and is notified of providers message. He voices understanding. Gris Guzman RN * Telephone Encounter - Lorenza Vo APRN.CNP - 10/28/2023 4:50 PM EDT Sounds good. I updated her medication list and sent a new script to the pharmacy. Can please let patient know. Lorenza Vo APRN.[place] * Telephone Encounter - Karlene Tarango LPN - 10/28/2023 4:42 PM EDT Patient calling said she had appt with Lorenza Vo today and was to call back with what dose herLisinopril is and patient said 30 mg and she takes it once daily. documented in this encounterOhio [facility] Hospital09-10-2024 Telephone encounter Note * Telephone Encounter - Lorenza Vo APRN.CNP - 10/28/2023 4:50 PM EDT Sounds good. I updated her medication list and sent a new script to the pharmacy. Can please let patient know. Lorenza Vo APRN.CNP [facility] Telephone encounter Note* Telephone Encounter - Karlene Tarango LPN - 10/28/2023 4:42 PM EDT Patient calling said she had appt with Lorenza Vo today and was to call back with what dose herLisinopril is and patient said 30 mg and she takes it once daily. [facility]-10-[facility] Instructions* Patient Instructions* Lorenza Vo APRN.CNP - 10/28/2023 2:05 PM EDT Stay on current medication. Call us back and confirm the dose of the lisinopril. Recheck in 6 months. documented in this encounterOhio Valley Hospital09-10-2024 NoteHNO ID: [id number] Author: LORENZA VO APRN.CNP Service: ? Author Type: Nurse Practitioner Type: Progress Notes Filed: 10/28/2023 16:57 Note Text: This is a 73 year old female who presents today with: Patient presents with: Recheck: 1 month follow up HISTORY OF PRESENT ILLNESS: Emily Lopez is a 73 year old female. Patient presents with: Recheck: 1 month follow up Pt presents today to follow-up on blood pressure. She was having trouble with dizziness. At last visit we decreased lisinopril to 30 mg. She refers that she is having less dizziness. She reports that the dizziness is improved. She is unsure though if she is taking 20 or 30 mg for certain. 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 She has additional testing later this week and has follow-up next week. PAST MEDICAL HISTORY: PAST MEDICAL HISTORY No date: COPD (chronic obstructive pulmonary disease) (HCC) 01/15/2012: HTN (hypertension) No date: Hyperlipidemia No date: Macular degeneration No date: Meniere's disease PAST SURGICAL HISTORY No date: APPENDECTOMY No date: CHOLECYSTECTOMY 08/27/2021: COLONOSCOPY Comment: repeat in 5 years 12/04/2016: COLONOSCOPY FLX DX W/COLLJ SPEC WHEN PFRMD Comment: Colonoscopy - regular villous adenoma recommended 3 year follow-up No date: PAST SURGICAL HISTORY OF Comment: exploratory lap for endometriosis 1997: SURGERY (GENERAL SURGERY) CONSULT Comment: LEFT ARM SURGERY No date: TONSILLECTOMY HX No date: TOTAL ABDOM HYSTERECTOMY Comment: age 42 ALLERGIES Tetanus Vaccines And Toxoid, Codeine, Penicillins, Seasonal Allergies, and Sulfa (Sulfonamide Antibiotics) MEDICATIONS Current Outpatient Medications Medication Sig apixaban (ELIQUIS ORAL) Take by mouth. lisinopril (ZESTRIL) 30 mg tablet Take 1 tablet by mouth once daily. (Patient taking differently: Take 30 mg by mouth once daily. Taking 20mg) metFORMIN (GLUCOPHAGE) 500 mg tablet Take 1 tablet by mouth daily with breakfast. semaglutide (RYBELSUS) 3 mg tablet Take 1 tablet by mouth daily before breakfast. Take 30 minutes before the first food, beverage, or other oral medications of the day with no more than 4 ounces of plain water (Patient not taking: Reported on 10/03/2023) ergocalciferol 50,000 unit capsule (VITAMIN D2, DRISDOL) Take 1 capsule by mouth one time a week. albuterol HFA (PROAIR HFA) 90 mcg/actuation inhaler Inhale 2 Puffs as instructed every 4 hours as needed. lbjkgbbuwsc-aivehpcdc-hxfzvilw (TRELEGY ELLIPTA) 100-62.5-25 mcg inhalation powder Inhale 1 Puff as instructed once daily. azithromycin (ZITHROMAX) 250 mg tablet Take 2 tablets on Day 1, then 1 tablet daily x 4 days. (Patient not taking: Reported on 09/29/2023) atorvastatin (LIPITOR) 80 mg tablet Take 1 tablet by mouth once daily. metoprolol succinate ER (TOPROL XL) 25 mg 24 hr tablet Take 1 tablet by mouth once daily. amLODIPine (NORVASC) 10 mg tablet Take 1 tablet by mouth once daily. Lancets lancets Test blood sugar(s) 1 times daily. Dx: Type 2 DM - Controlled E11.9 Insulin: No (Patient not taking: Reported on 10/03/2023) blood sugar diagnostic (BLOOD GLUCOSE TEST) test strip Test blood sugar(s) 1 times daily. Dx: Type 2 DM - Controlled E11.9 Insulin: Yes (Patient not taking: Reported on 10/03/2023) vit A,C,C-Fhzc-Cspbpi (PRESERVISION AREDS) 7,160-113-100 xtqp-da-zkxe tab Take 2 tablets by mouth. aspirin, enteric coated (ASPIRIN LOW DOSE) 81 mg EC tablet Take 1 tablet by mouth once daily. No current facility-administered medications for this visit. FAMILY HISTORY Problem Relation Age of Onset Diabetes Mother Thyroid Mother Diabetes Father COPD Father smoker Diabetes Sister Bipolar disorder Sister Bipolar disorder Daughter other (10 grandchildren) Grandchild Cancer No Family History Social History Tobacco Use Smoking status: Former Current packs/day: 0.00 Average packs/day: 0.8 packs/day for 40.8 years (30.6 ttl pk-yrs) Types: Cigarettes Start date: 02/17/1970 Quit date: 11/26/2010 Years since quittin.9 Smokeless tobacco: Never Vaping Use Vaping status: Never Used Substance Use Topics Alcohol use: Yes Comment: 2 galsses of wine 1-2 times per week Drug use: No EXAM: BP 112/78 Pulse 94 Resp 16 SpO2 97% PHYSICAL EXAM: General Appearance: Well appearing, alert, in no acute distress, well-hydrated, well nourished.. Skin: Skin color, texture, turgor normal, no suspicious rashes or lesions. Head: Normocephalic, no masses, lesions, tenderness or abnormalities. Eyes: Anicteric sclera. Extraocular movements are intact. . Lungs: Lungs clear to auscultation. No wheezing, rhonchi, rales.. Heart: RRR without murmur, gallop, or rubs. No ectopy. Neurologic: Gait normal. ASSESSMENT/PLAN: 1. Primary hypertension - ICD9: 401.9, ICD10: I10 - Controlled - Continue current medications - Recommend home blood pressure monitoring, to bring results to next visit (more content not included)...[facility]09-10-2024 History of Present illness Narrative* Lorenza Vo APRN.DRYING TUNNEL OPERATOR - 10/28/2023 1:47 PM EDT This is a 73 year old female who presents today with: Patient presents with: Recheck: 1 month follow up HISTORY OF PRESENT ILLNESS: Emily Lopez is a 73 year old female. Patient presents with: Recheck: 1 month follow up Pt presents today to follow-up on blood pressure. She was having trouble with dizziness. At last visit we decreased lisinopril to 30 mg. She refers that she is having less dizziness. She reports that the dizziness is improved. She is unsure though if she is taking 20 or 30 mg for certain. 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 She has additional testing later this week and has follow-up next week. PAST MEDICAL HISTORY: PAST MEDICAL HISTORY No date: COPD (chronic obstructive pulmonary disease) ([facility]) 01/15/2012: HTN (hypertension) No date: Hyperlipidemia No date: Macular degeneration No date: Meniere's disease PAST SURGICAL HISTORY No date: APPENDECTOMY No date: CHOLECYSTECTOMY 08/27/2021: COLONOSCOPY Comment: repeat in 5 years 12/04/2016: COLONOSCOPY FLX DX W/COLLJ SPEC WHEN PFRMD Comment: Colonoscopy - regular villous adenoma recommended 3 year follow-up No date: PAST SURGICAL HISTORY OF Comment: exploratory lap for endometriosis 1997: SURGERY (GENERAL SURGERY) CONSULT Comment: LEFT ARM SURGERY No date: TONSILLECTOMY HX No date: TOTAL ABDOM HYSTERECTOMY Comment: age 42 ALLERGIES Tetanus Vaccines And Toxoid, Codeine, Penicillins, Seasonal Allergies, and Sulfa (Sulfonamide Antibiotics) MEDICATIONS Current Outpatient Medications Medication Sig apixaban (ELIQUIS ORAL) Take by mouth. lisinopril (ZESTRIL) 30 mg tablet Take 1 tablet by mouth once daily. (Patient taking differently: Take 30 mg by mouth once daily. Taking 20mg) metFORMIN (GLUCOPHAGE) 500 mg tablet Take 1 tablet by mouth daily with breakfast. semaglutide (RYBELSUS) 3 mg tablet Take 1 tablet by mouth daily before breakfast. Take 30 minutes before the first food, beverage, or other oral medications of the day with no more than 4 ounces of plain water (Patient not taking: Reported on 10/03/2023) ergocalciferol 50,000 unit capsule (VITAMIN D2, DRISDOL) Take 1 capsule by mouth one time a week. albuterol HFA (PROAIR HFA) 90 mcg/actuation inhaler Inhale 2 Puffs as instructed every 4 hours as needed. zeslvffjjjh-zduzwrkil-zeyvidpx (TRELEGY ELLIPTA) 100-62.5-25 mcg inhalation powder Inhale 1 Puff asinstructed once daily. azithromycin (ZITHROMAX) 250 mg tablet Take 2 tablets on Day 1, then 1 tablet daily x 4 days. (Patient not taking: Reported on 09/29/2023) atorvastatin (LIPITOR) 80 mg tablet Take 1 tablet by mouth once daily. metoprolol succinate ER (TOPROL XL) 25 mg 24 hr tablet Take 1 tablet by mouth once daily. amLODIPine (NORVASC) 10 mg tablet Take 1 tablet by mouth once daily. Lancets lancets Test blood sugar(s) 1 times daily. Dx: Type 2 DM - Controlled E11.9 Insulin: No (Patient not taking: Reported on 10/03/2023) blood sugar diagnostic (BLOOD GLUCOSE TEST) test strip Test blood sugar(s) 1 times daily. Dx: Type 2 DM - Controlled E11.9 Insulin: Yes (Patient not taking: Reported on 10/03/2023) vit A,C,H-Rlpi-Rscouh (PRESERVISION AREDS) 7,160-113-100 ebku-tq-sejq tab Take 2 tablets by mouth. aspirin, enteric coated (ASPIRIN LOW DOSE) 81 mg EC tablet Take 1 tablet by mouth once daily. No current facility-administered medications for this visit. FAMILY HISTORY Problem Relation Age of Onset Diabetes Mother Thyroid Mother Diabetes Father COPD Father smoker Diabetes Sister Bipolar disorder Sister Bipolar disorder Daughter other (10 grandchildren) Grandchild Cancer No Family History Social History Tobacco Use Smoking status: Former Current packs/day: 0.00 Average packs/day: 0.8 packs/day for 40.8 years (30.6 ttl pk-yrs) Types: Cigarettes Start date: 02/17/1970 Quit date: 11/26/2010 Years since quittin.9 Smokeless tobacco: Never Vaping Use Vaping status: Never Used Substance Use Topics Alcohol use: Yes Comment: 2 galsses of wine 1-2 times per week Drug use: No EXAM: BP 112/78 Pulse 94 Resp 16 SpO2 97% PHYSICAL EXAM: General Appearance: Well appearing, alert, in no acute distress, well-hydrated, well nourished.. Skin: Skin color, texture, turgor normal, no suspicious rashes or lesions. Head: Normocephalic, no masses, lesions, tenderness or abnormalities. Eyes: Anicteric sclera. Extraocular movements are intact. . Lungs: Lungs clear to auscultation. No wheezing, rhonchi, rales.. Heart: RRR without murmur, gallop, or rubs. No ectopy. Neurologic: Gait normal. ASSESSMENT/PLAN: 1. Primary hypertension - ICD9: 401.9, ICD10: I10 - Controlled - Continue current medications - Recommend home blood pressure monitoring, to bring results to next visit - Encouraged sodium restriction, DASH or Mediterranean diet - Recommend regular aerobic exercise Patient will call back in to confirm current lisinopril dosage. Refill will be sent at that time. Discussed treatment plan and patient voices understanding. Patient's questions answered appropriately. Medications and potential side effects were discussed and patient voices understanding. Return to the office as scheduled or as needed for worsening/no improvement. Lorenza Vo APRN.[place] [facility] NoteHNO ID: [id number] Author: BRITTON GANNON, DO Service: ? Author Type: Physician Type: Progress Notes Filed: 10/03/2023 16:58 Note Text: [facility] SECTION OF [facility] CARDIOLOGY [facility] OUTPATIENT VISIT DATE October 03, 2023 PRIMARY CARE PHYSICIAN: Rober Rubio [address] [place] [address] HISTORY OF PRESENT ILLNESS: Ms. Lopez is a 73 year old female. The patient presents due to history of coronary artery calcification as well as paroxysmal atrial fibrillation, hypertension, hyperlipidemia and long-term oral anticoagulation with Eliquis. She denies chest discomfort, dyspnea, orthopnea, paroxysmal nocturnal dyspnea, palpitations, near-syncope or syncope. She denies GI/ bleeding or melena. Her atrial fibrillation was apparently situational. Documentation is through that of an echocardiogram. PLAN AND RECOMMENDATIONS: The patient overall appears stable without apparent symptoms of angina, cardiac decompensation or paroxysms of atrial fibrillation. Heart rate, blood pressure and recent cholesterol profile are favorable so that we have made no additions or changes. Dietary and lifestyle modification was reemphasized to facilitate risk factor reduction and heart failure prevention. We will look forward to reevaluating her in 6 months time. Vitals: BP 110/72 Pulse 108 Ht 154.9 cm (5' 1) Wt 87.4 kg (192 lb 10.9 oz) SpO2 92% BMI 36.41 kg/m? Physical Exam Vitals reviewed. Constitutional: General: She is not in acute distress. Appearance: Normal appearance. She is well-developed. HENT: Head: Normocephalic and atraumatic. Nose: Nose normal. Eyes: General: No scleral icterus. Right eye: No discharge. Left eye: No discharge. Pupils: Pupils are equal, round, and reactive to light. Neck: Thyroid: No thyromegaly. Vascular: No carotid bruit or JVD. Cardiovascular: Rate and Rhythm: Normal rate and regular rhythm. Heart sounds: Normal heart sounds. No murmur heard. No friction rub. No gallop. Pulmonary: Effort: Pulmonary effort is normal. No respiratory distress. Breath sounds: Normal breath sounds. No wheezing or rales. Abdominal: General: Bowel sounds are normal. Palpations: Abdomen is soft. Musculoskeletal: General: Normal range of motion. Cervical back: Normal range of motion and neck supple. Skin: General: Skin is warm and dry. Capillary Refill: Capillary refill takes less than 2 seconds. Coloration: Skin is not pale. Neurological: Mental Status: She is alert and oriented to person, place, and time. Cranial Nerves: No cranial nerve deficit. Psychiatric: Behavior: Behavior normal. Thought Content: Thought content normal. Judgment: Judgment normal. Review of Systems Constitutional: Negative for activity change and fatigue. HENT: Negative for ear pain and facial swelling. Eyes: Negative for pain and discharge. Respiratory: Negative for chest tightness and shortness of breath. Cardiovascular: Negative for chest pain, palpitations and leg swelling. Gastrointestinal: Negative for abdominal pain, blood in stool, nausea and vomiting. Endocrine: Negative for cold intolerance and heat intolerance. Genitourinary: Negative for frequency and hematuria. Musculoskeletal: Negative for arthralgias and gait problem. Skin: Negative for color change, pallor and rash. Allergic/Immunologic: Negative for immunocompromised state. Neurological: Negative for dizziness, syncope, light-headedness and headaches. Hematological: Negative for adenopathy. Does not bruise/bleed easily. Psychiatric/Behavioral: Negative for confusion. The patient is not nervous/anxious. PAST MEDICAL HISTORY No date: COPD (chronic obstructive pulmonary disease) (HCC) 01/15/2012: HTN (hypertension) No date: Hyperlipidemia No date: Macular degeneration No date: Meniere's disease PAST SURGICAL HISTORY No date: APPENDECTOMY No date: CHOLECYSTECTOMY 08/27/2021: COLONOSCOPY Comment: repeat in 5 years 12/04/2016: COLONOSCOPY FLX DX W/COLLJ SPEC WHEN PFRMD Comment: Colonoscopy - regular villous adenoma recommended 3 year follow-up No date: PAST SURGICAL HISTORY OF Comment: exploratory lap for endometriosis 1998: SURGERY (GENERAL SURGERY) CONSULT Comment: LEFT ARM SURGERY No date: TONSILLECTOMY HX No date: TOTAL ABDOM HYSTERECTOMY Comment: age 42 Social History Tobacco Use Smoking status: Former Packs/day: 0.75 Years: 40.00 Additional pack years: 0.00 Total pack years: 30.00 Types: Cigarettes Start date: 02/17/1970 Quit date: 11/26/2010 Years since quittin.8 Smokeless tobacco: Never Vaping Use Vaping Use: Never used Substance Use Topics Alcohol use: Yes Comment: 2 galsses of wine 1-2 times per week Drug use: No FAMILY HISTORY Problem Relation Age of Onset Diabetes Mother Thyroid Mother Diabetes Father COPD Father smoker Diabet (more content not included)...[facility]08-16-2024 History of Present illness Narrative* Britton Gannon, DO - 10/03/2023 3:05 PM EDT Images from the original note were not included. [facility] OUTPATIENT VISIT DATE October 03, 2023 PRIMARY CARE PHYSICIAN: Rober Rubio [address] [place] [address] HISTORY OF PRESENT ILLNESS: Ms. Lopez is a 73 year old female. The patient presents due to history of coronary artery calcification as well as paroxysmal atrial fibrillation, hypertension, hyperlipidemia and long-term oral anticoagulation with Eliquis. She denies chest discomfort, dyspnea, orthopnea, paroxysmal nocturnal dyspnea, palpitations, near-syncope or syncope. She denies GI/ bleeding or melena. Her atrial fibrillation was apparently situational. Documentation is through that of an echocardiogram. PLAN AND RECOMMENDATIONS: The patient overall appears stable without apparent symptoms of angina, cardiac decompensation or paroxysms of atrial fibrillation. Heart rate, blood pressure and recent cholesterol profile are favorable so that we have made no additions or changes. Dietary and lifestyle modification was reemphasized to facilitate risk factor reduction and heart failure prevention. We will look forward to reevaluating her in 6 months time. Vitals: BP 110/72 Pulse 108 Ht 154.9 cm (5' 1) Wt 87.4 kg (192 lb 10.9 oz) SpO2 92% BMI 36.41 kg/m Physical Exam Vitals reviewed. Constitutional: General: She is not in acute distress. Appearance: Normal appearance. She is well-developed. HENT: Head: Normocephalic and atraumatic. Nose: Nose normal. Eyes: General: No scleral icterus. Right eye: No discharge. Left eye: No discharge. Pupils: Pupils are equal, round, and reactive to light. Neck: Thyroid: No thyromegaly. Vascular: No carotid bruit or JVD. Cardiovascular: Rate and Rhythm: Normal rate and regular rhythm. Heart sounds: Normal heart sounds. No murmur heard. No friction rub. No gallop. Pulmonary: Effort: Pulmonary effort is normal. No respiratory distress. Breath sounds: Normal breath sounds. No wheezing or rales. Abdominal: General: Bowel sounds are normal. Palpations: Abdomen is soft. Musculoskeletal: General: Normal range of motion. Cervical back: Normal range of motion and neck supple. Skin: General: Skin is warm and dry. Capillary Refill: Capillary refill takes less than 2 seconds. Coloration: Skin is not pale. Neurological: Mental Status: She is alert and oriented to person, place, and time. Cranial Nerves: No cranial nerve deficit. Psychiatric: Behavior: Behavior normal. Thought Content: Thought content normal. Judgment: Judgment normal. Review of Systems Constitutional: Negative for activity change and fatigue. HENT: Negative for ear pain and facial swelling. Eyes: Negative for pain and discharge. Respiratory: Negative for chest tightness and shortness of breath. Cardiovascular: Negative for chest pain, palpitations and leg swelling. Gastrointestinal: Negative for abdominal pain, blood in stool, nausea and vomiting. Endocrine: Negative for cold intolerance and heat intolerance. Genitourinary: Negative for frequency and hematuria. Musculoskeletal: Negative for arthralgias and gait problem. Skin: Negative for color change, pallor and rash. Allergic/Immunologic: Negative for immunocompromised state. Neurological: Negative for dizziness, syncope, light-headedness and headaches. Hematological: Negative for adenopathy. Does not bruise/bleed easily. Psychiatric/Behavioral: Negative for confusion. The patient is not nervous/anxious. PAST MEDICAL HISTORY No date: COPD (chronic obstructive pulmonary disease) (HCC) 01/15/2012: HTN (hypertension) No date: Hyperlipidemia No date: Macular degeneration No date: Meniere's disease PAST SURGICAL HISTORY No date: APPENDECTOMY No date: CHOLECYSTECTOMY 08/27/2021: COLONOSCOPY Comment: repeat in 5 years 12/04/2016: COLONOSCOPY FLX DX W/COLLJ SPEC WHEN PFRMD Comment: Colonoscopy - regular villous adenoma recommended 3 year follow-up No date: PAST SURGICAL HISTORY OF Comment: exploratory lap for endometriosis 1997: SURGERY (GENERAL SURGERY) CONSULT Comment: LEFT ARM SURGERY No date: TONSILLECTOMY HX No date: TOTAL ABDOM HYSTERECTOMY Comment: age 42 Social History Tobacco Use Smoking status: Former Packs/day: 0.75 Years: 40.00 Additional pack years: 0.00 Total pack years: 30.00 Types: Cigarettes Start date: 02/17/1970 Quit date: 11/26/2010 Years since quittin.8 Smokeless tobacco: Never Vaping Use Vaping Use: Never used Substance Use Topics Alcohol use: Yes Comment: 2 galsses of wine 1-2 times per week Drug use: No FAMILY HISTORY Problem Relation Age of Onset Diabetes Mother Thyroid Mother Diabetes Father COPD Father smoker Diabetes Sister Bipolar disorder Sister Bipolar disorder Daughter other (10 grandchildren) Grandchild Cancer No Family History ALLERGIES Allergen Reactions Tetanus Vaccines An* Anaphylaxis Codeine Other: See Comments Patient states it feels like bugs are crawling on her Penicillins Rash Seasonal Allergies Other: See Comments Sulfa (Sulfonamide * Rash CURRENT MEDICATIONS: apixaban (ELIQUIS ORAL) Take by mouth. lisinopril (ZESTRIL) 30 mg tablet Take 1 tablet by mouth once daily. (Patient taking differently: Take 30 mg by mouth once daily. Taking 20mg) metFORMIN (GLUCOPHAGE) 500 mg tablet Take 1 tablet by mouth daily with breakfast. ergocalciferol 50,000 unit capsule (VITAMIN D2, DRISDOL) Take 1 capsule by mouth one time a week. albuterol HFA (PROAIR HFA) 90 mcg/actuation inhaler Inhale 2 Puffs as instructed every 4 hours as needed. iswkbutmawg-fynmndlno-qgsxkluw (TRELEGY ELLIPTA) 100-62.5-25 mcg inhalation powder Inhale 1 Puff asinstructed once daily. atorvastatin (LIPITOR) 80 mg tablet Take 1 tablet by mouth once daily. metoprolol succinate ER (TOPROL XL) 25 mg 24 hr tablet Take 1 tablet by mouth once daily. amLODIPine (NORVASC) 10 mg tablet Take 1 tablet by mouth once daily. vit A,C,Q-Xxbo-Otwmtf (PRESERVISION AREDS) 7,160-113-100 tosf-ks-rica tab Take 2 tablets by mouth. aspirin, enteric coated (ASPIRIN LOW DOSE) 81 mg EC tablet Take 1 tablet by mouth once daily. semaglutide (RYBELSUS) 3 mg tablet Take 1 tablet by mouth daily before breakfast. Take 30 minutes before the first food, beverage, or other oral medications of the day with no more than 4 ounces of plain water (Patient not taking: Reported on 10/03/2023) azithromycin (ZITHROMAX) 250 mg tablet Take 2 tablets on Day 1, then 1 tablet daily x 4 days. (Patient not taking: Reported on 09/29/2023) Lancets lancets Test blood sugar(s) 1 times daily. Dx: Type 2 DM - Controlled E11.9 Insulin: No (Patient not taking: Reported on 10/03/2023) blood sugar diagnostic (BLOOD GLUCOSE TEST) test strip Test blood sugar(s) 1 times daily. Dx: Type 2 DM - Controlled E11.9 Insulin: Yes (Patient not taking: Reported on 10/03/2023) Britton Gannon DO, [facility], [facility] Hatchery Laborer, [facility] Ambulatory Cardiology Hatchery Laborer, [facility] Cardiac Rehabilitation Hatchery Laborer, [facility] Rehabilitation Hatchery Laborer, [facility] Hatchery Laborer, [facility] Ambulatory Cardiology Clinical Security Operations Engineer Profressor of Medicine, [facility] Staff Yard Pipe Grader, Shannon Conway Department of Cardiovascular Medicine/Heart and Vascular [place], [facility] Please note: This note has been produced using speech recognition software and may contain errors related to that system including guerrero, punctuation, spelling, words, gender and phrases that may be inappropriate. documented in this encounter[facility]08-[facility]-2024 NoteHNO ID: [id number] Author: EMILY ADAMS DO Service: ? Author Type: Physician Type: Progress Notes Filed: 09/29/2023 16:15 Note Text: Heart, Vascular and Thoracic [place] DEPARTMENT OF VASCULAR SURGERY OUTPATIENT VISIT DATE September 29, 2023 OUTPATIENT VISIT TYPE CONSULTATION SERVICE DATE: 09/29/2023 SERVICE TIME: 12:24 PM PRIMARY CARE PHYSICIAN: Rober Rubio MD REFERRING PROVIDER: Rober Rubio [address] [facility] [id number] Consult requested for an opinion regarding the evaluation and treatment of the above. My final impression and recommendations will be communicated back to the requesting physician by way of the shared medical record or letter via [place] mail. CHIEF COMPLAINT: Blood pressure difference in arms HISTORY OF PRESENT ILLNESS: Vascular consultation at the request of Dr. Rober Rubio. A copy of this consultation note will be provided to the requesting physician by way of shared Medical record or letter to requesting physician via US mail. Ms. Lopez is a 73 year old female who is seen today for left subclavian artery blockage. She found to have difference in blood pressures. She does admit to left ring and 5th finger numbness. She had a remote surgery 30 years ago for numbness in left upper extremities and the symptoms improved after nerve surgery. She is a former smoker. She is diabetic. She was recently diagnosed with atrial fibrillation and is on eliquis. She is right handed. She does admit to dizziness which was improved with adjustment in her lisinopril. PAST MEDICAL HISTORY No date: COPD (chronic obstructive pulmonary disease) (HCC) 01/15/2012: HTN (hypertension) No date: Hyperlipidemia No date: Macular degeneration No date: Meniere's disease PAST SURGICAL HISTORY No date: APPENDECTOMY No date: CHOLECYSTECTOMY 08/27/2021: COLONOSCOPY Comment: repeat in 5 years 12/04/2016: COLONOSCOPY FLX DX W/COLLJ SPEC WHEN PFRMD Comment: Colonoscopy - regular villous adenoma recommended 3 year follow-up No date: PAST SURGICAL HISTORY OF Comment: exploratory lap for endometriosis 1998: SURGERY (GENERAL SURGERY) CONSULT Comment: LEFT ARM SURGERY No date: TONSILLECTOMY HX No date: TOTAL ABDOM HYSTERECTOMY Comment: age 42 SOCIAL HISTORY: Social History Tobacco Use Smoking status: Former Packs/day: 0.75 Years: 40.00 Additional pack years: 0.00 Total pack years: 30.00 Types: Cigarettes Start date: 02/17/1970 Quit date: 11/26/2010 Years since quittin.8 Smokeless tobacco: Never Vaping Use Vaping Use: Never used Substance Use Topics Alcohol use: Yes Comment: 2 galsses of wine 1-2 times per week Drug use: No FAMILY HISTORY Problem Relation Age of Onset Diabetes Mother Thyroid Mother Diabetes Father COPD Father smoker Diabetes Sister Bipolar disorder Sister Bipolar disorder Daughter other (10 grandchildren) Grandchild Cancer No Family History MEDICATIONS: lisinopril (ZESTRIL) 30 mg tablet Take 1 tablet by mouth once daily. metFORMIN (GLUCOPHAGE) 500 mg tablet Take 1 tablet by mouth daily with breakfast. semaglutide (RYBELSUS) 3 mg tablet Take 1 tablet by mouth daily before breakfast. Take 30 minutes before the first food, beverage, or other oral medications of the day with no more than 4 ounces of plain water ergocalciferol 50,000 unit capsule (VITAMIN D2, DRISDOL) Take 1 capsule by mouth one time a week. albuterol HFA (PROAIR HFA) 90 mcg/actuation inhaler Inhale 2 Puffs as instructed every 4 hours as needed. hmienhdcbrq-jgutxbrzo-kdtewwgl (TRELEGY ELLIPTA) 100-62.5-25 mcg inhalation powder Inhale 1 Puff as instructed once daily. azithromycin (ZITHROMAX) 250 mg tablet Take 2 tablets on Day 1, then 1 tablet daily x 4 days. atorvastatin (LIPITOR) 80 mg tablet Take 1 tablet by mouth once daily. metoprolol succinate ER (TOPROL XL) 25 mg 24 hr tablet Take 1 tablet by mouth once daily. amLODIPine (NORVASC) 10 mg tablet Take 1 tablet by mouth once daily. Lancets lancets Test blood sugar(s) 1 times daily. Dx: Type 2 DM - Controlled E11.9 Insulin: No blood sugar diagnostic (BLOOD GLUCOSE TEST) test strip Test blood sugar(s) 1 times daily. Dx: Type 2 DM - Controlled E11.9 Insulin: Yes vit A,C,L-Sdub-Oimsfo (PRESERVISION AREDS) 7,160-113-100 bqeu-hp-craq tab Take by mouth. aspirin, enteric coated (ASPIRIN LOW DOSE) 81 mg EC tablet Take 1 tablet by mouth once daily. ALLERGIES: ALLERGIES Allergen Reactions Tetanus Vaccines An* Anaphylaxis Codeine Other: See Comments Patient states it feels like bugs are crawling on her Penicillins Rash Seasonal Allergies Other: See Comments Sulfa (Sulfonamide * Rash REVIEW of SYSTEM: Constitutional: No weight loss, malaise or fevers. HEENT: No changes in hearing or vision, no nose bleeds or other nasal problems, Head Positive for headache Respiratory: Positive for chronic cough and shortness of breath on exertion Cardiovascular (more content not included)...[facility] 09-29-2023 History of Present illness Narrative* Emily Adams DO - 09/29/2023 12:24 PM EDT Images from the original note were not included. [facility] [place] DEPARTMENT OF VASCULAR SURGERY OUTPATIENT VISIT DATE September 29, 2023 OUTPATIENT VISIT TYPE CONSULTATION SERVICE DATE: 09/29/2023 SERVICE TIME: 12:24 PM PRIMARY CARE PHYSICIAN: Rober Rubio MD REFERRING PROVIDER: Rober Rubio [id number] [facility] [id number] Consult requested for an opinion regarding the evaluation and treatment of the above. My final impression and recommendations will be communicated back to the requesting physician by way of the shared medical record or letter via [place] mail. CHIEF COMPLAINT: Blood pressure difference in arms HISTORY OF PRESENT ILLNESS: Vascular consultation at the request of Dr. Rober Rubio. A copy of this consultation note will be provided to the requesting physician by way of shared Medical record or letter to requesting physician via US mail. Ms. Lopez is a 73 year old female who is seen today for left subclavian artery blockage. She foundto have difference in blood pressures. She does admit to left ring and 5th finger numbness. She hada remote surgery 30 years ago for numbness in left upper extremities and the symptoms improved after nerve surgery. She is a former smoker. She is diabetic. She was recently diagnosed with atrial fibr illation and is on eliquis. She is right handed. She does admit to dizziness which was improved with adjustment in her lisinopril. PAST MEDICAL HISTORY No date: COPD (chronic obstructive pulmonary disease) (HCC) 01/15/2012: HTN (hypertension) No date: Hyperlipidemia No date: Macular degeneration No date: Meniere's disease PAST SURGICAL HISTORY No date: APPENDECTOMY No date: CHOLECYSTECTOMY 08/27/2021: COLONOSCOPY Comment: repeat in 5 years 12/04/2016: COLONOSCOPY FLX DX W/COLLJ SPEC WHEN PFRMD Comment: Colonoscopy - regular villous adenoma recommended 3 year follow-up No date: PAST SURGICAL HISTORY OF Comment: exploratory lap for endometriosis 1998: SURGERY (GENERAL SURGERY) CONSULT Comment: LEFT ARM SURGERY No date: TONSILLECTOMY HX No date: TOTAL ABDOM HYSTERECTOMY Comment: age 42 SOCIAL HISTORY: Social History Tobacco Use Smoking status: Former Packs/day: 0.75 Years: 40.00 Additional pack years: 0.00 Total pack years: 30.00 Types: Cigarettes Start date: 02/17/1970 Quit date: 11/26/2010 Years since quittin.8 Smokeless tobacco: Never Vaping Use Vaping Use: Never used Substance Use Topics Alcohol use: Yes Comment: 2 galsses of wine 1-2 times per week Drug use: No FAMILY HISTORY Problem Relation Age of Onset Diabetes Mother Thyroid Mother Diabetes Father COPD Father smoker Diabetes Sister Bipolar disorder Sister Bipolar disorder Daughter other (10 grandchildren) Grandchild Cancer No Family History MEDICATIONS: lisinopril (ZESTRIL) 30 mg tablet Take 1 tablet by mouth once daily. metFORMIN (GLUCOPHAGE) 500 mg tablet Take 1 tablet by mouth daily with breakfast. semaglutide (RYBELSUS) 3 mg tablet Take 1 tablet by mouth daily before breakfast. Take 30 minutes before the first food, beverage, or other oral medications of the day with no more than 4 ounces of plain water ergocalciferol 50,000 unit capsule (VITAMIN D2, DRISDOL) Take 1 capsule by mouth one time a week. albuterol HFA (PROAIR HFA) 90 mcg/actuation inhaler Inhale 2 Puffs as instructed every 4 hours as needed. dpyeoeercmo-qqywtogjp-fxzsroya (TRELEGY ELLIPTA) 100-62.5-25 mcg inhalation powder Inhale 1 Puff asinstructed once daily. azithromycin (ZITHROMAX) 250 mg tablet Take 2 tablets on Day 1, then 1 tablet daily x 4 days. atorvastatin (LIPITOR) 80 mg tablet Take 1 tablet by mouth once daily. metoprolol succinate ER (TOPROL XL) 25 mg 24 hr tablet Take 1 tablet by mouth once daily. amLODIPine (NORVASC) 10 mg tablet Take 1 tablet by mouth once daily. Lancets lancets Test blood sugar(s) 1 times daily. Dx: Type 2 DM - Controlled E11.9 Insulin: No blood sugar diagnostic (BLOOD GLUCOSE TEST) test strip Test blood sugar(s) 1 times daily. Dx: Type 2 DM - Controlled E11.9 Insulin: Yes vit A,C,U-Gcyi-Vgpizf (PRESERVISION AREDS) 7,160-113-100 agcs-bz-oprz tab Take by mouth. aspirin, enteric coated (ASPIRIN LOW DOSE) 81 mg EC tablet Take 1 tablet by mouth once daily. ALLERGIES: ALLERGIES Allergen Reactions Tetanus Vaccines An* Anaphylaxis Codeine Other: See Comments Patient states it feels like bugs are crawling on her Penicillins Rash Seasonal Allergies Other: See Comments Sulfa (Sulfonamide * Rash REVIEW of SYSTEM: Constitutional: No weight loss, malaise or fevers. HEENT: No changes in hearing or vision, no nose bleeds or other nasal problems, Head Positive for headache Respiratory: Positive for chronic cough and shortness of breath on exertion Cardiovascular: Negative for chest pain, leg swelling or palpitations Gatrointestinal: Negative for abdominal discomfort, blood in stools or black stools or change in bowel habits Genitourinary: No history of dysuria, frequency, or incontinence Musculoskeletal: Positive for back pain and joint pain Endocrine: Negative for cold or heat intolerance, polyuria, polydipsia and goiter Hematology/Lymphatic: Negative for prolonged bleeding, bruising easily or swollen nodes Neurologic: No history or headaches, syncope, paralysis, seizures or tremors Integumentary: Negative for lesions, rash, and itching. PHYSICAL EXAM: VITALS: There were no vitals taken for this visit. General: Alert and oriented Integumentary: Normal color, no rash, no lesions. HEENT: EOM, pupils equal, round and reactive., No carotid bruits Cardiovascular: Normal S1 & S2, no rubs, murmurs or gallops. No JVD., Pulse regular. Lungs: No chest deformities or chest wall tenderness. Abdomen: Not examined Extremities: No deformity, no edema or tenderness, no joint swelling or clubbing. Neurological: Normal cognition and motor skills. Vascular: Radial Pulse Right: Normal - Left: Weak; doppler signals dp/pt Diagnostic tests reviewed for today's visit: Most recent labs Most recent imaging Arterial Duplex- Left brachial blood pressure lower than right, suggest further evaluation to exclude subclavian or axillary disease. RIGHT SIDE Innominate artery distal: 50-99% stenosis . Elevated velcoties, plaque and turbulent flow noted. Subclavian artery : plaque noted without evidence of hemodynamically significant stenosis . An area of mobile plaque visualizd at origin. Axillary artery : plaque noted without evidence of hemodynamically significant stenosis . Brachial artery, Radial artery and Ulnar artery : patent . LEFT SIDE Subclavian artery : plaque noted. Turbulent flow noted at proximal vessel and monophasic flow noted throughout remainder of arteries suggestive of a more proximal stenosis. May wish other means of evaluation. Axillary artery : plaque noted without evidence of hemodynamically significant stenosis . Brachial artery, Radial artery and Ulnar artery : patent . IMPRESSION: Ms. Lopez is a 73 year old female with subclavian artery stenosis/occlusion . PLAN and RECOMMENDATIONS: Will get Carotid duplex and PVRs Currently she is asymptomatic however we discussed symptoms of subclavian steal Recommend follow up after testing Continue blood pressure and cholesterol control Continue current medications SIGNATURE: Emily Adams DO PATIENT NAME: Emily Lopez DATE: September 29, 2023 TIME: 12:24 PM [facility] Instructions* Patient Instructions* Lorenza Vo APRN.[facility] - 09/24/2023 1:56 PM EDT Decrease the lisinopril to 30 mg. Follow-up with vascular and cardiology, as planned. Recheck in 1 month. documented in [facility] encounter[facility]24 NoteHNO ID: [id number] Author: LORENZA VO APRN.[facility] Service: ? Author Type: Nurse Practitioner Type: Progress Notes Filed: 09/24/2023 17:35 Note Text: This is a 73 year old female who presents today with: Patient presents with: Recheck: 1 month follow up HISTORY OF PRESENT ILLNESS: Emily Lopez is a 73 year old female. Patient presents with: Recheck: 1 month follow up We tried to change her blood pressure medication regimen so that she was not taking all of her medications at the same time. We changed the lisinopril to the evening. She reports no change in her symptoms. Describes dizziness as a sensation of movement in her head. Feels lightheaded. Nothing actually spinning. Refers that if she gets up slower and moves slower, it isn't as bad. Refers that if she has to move quickly, then symptoms are worse. She does have an upcoming appoint with vascular due to recent ultrasound findings and blood pressure variation between arms. PAST MEDICAL HISTORY: PAST MEDICAL HISTORY No date: COPD (chronic obstructive pulmonary disease) (HCC) 01/15/2012: HTN (hypertension) No date: Hyperlipidemia No date: Macular degeneration No date: Meniere's disease PAST SURGICAL HISTORY No date: APPENDECTOMY No date: CHOLECYSTECTOMY 08/27/2021: COLONOSCOPY Comment: repeat in 5 years 12/04/2016: COLONOSCOPY FLX DX W/COLLJ SPEC WHEN PFRMD Comment: Colonoscopy - regular villous adenoma recommended 3 year follow-up No date: PAST SURGICAL HISTORY OF Comment: exploratory lap for endometriosis 1998: SURGERY (GENERAL SURGERY) CONSULT Comment: LEFT ARM SURGERY No date: TONSILLECTOMY HX No date: TOTAL ABDOM HYSTERECTOMY Comment: age 42 ALLERGIES Tetanus Vaccines And Toxoid, Codeine, Penicillins, Seasonal Allergies, and Sulfa (Sulfonamide Antibiotics) MEDICATIONS Current Outpatient Medications Medication Sig metFORMIN (GLUCOPHAGE) 500 mg tablet Take 1 tablet by mouth daily with breakfast. semaglutide (RYBELSUS) 3 mg tablet Take 1 tablet by mouth daily before breakfast. Take 30 minutes before the first food, beverage, or other oral medications of the day with no more than 4 ounces of plain water ergocalciferol 50,000 unit capsule (VITAMIN D2, DRISDOL) Take 1 capsule by mouth one time a week. albuterol HFA (PROAIR HFA) 90 mcg/actuation inhaler Inhale 2 Puffs as instructed every 4 hours as needed. agexmcwinvb-aexcvpbiw-vpzyrhew (TRELEGY ELLIPTA) 100-62.5-25 mcg inhalation powder Inhale 1 Puff as instructed once daily. azithromycin (ZITHROMAX) 250 mg tablet Take 2 tablets on Day 1, then 1 tablet daily x 4 days. atorvastatin (LIPITOR) 80 mg tablet Take 1 tablet by mouth once daily. metoprolol succinate ER (TOPROL XL) 25 mg 24 hr tablet Take 1 tablet by mouth once daily. amLODIPine (NORVASC) 10 mg tablet Take 1 tablet by mouth once daily. lisinopril (ZESTRIL) 40 mg tablet Take 1 tablet by mouth once daily. Lancets lancets Test blood sugar(s) 1 times daily. Dx: Type 2 DM - Controlled E11.9 Insulin: No blood sugar diagnostic (BLOOD GLUCOSE TEST) test strip Test blood sugar(s) 1 times daily. Dx: Type 2 DM - Controlled E11.9 Insulin: Yes vit A,C,B-Mrle-Ofqevr (PRESERVISION AREDS) 7,160-113-100 zqdk-my-dkvb tab Take by mouth. aspirin, enteric coated (ASPIRIN LOW DOSE) 81 mg EC tablet Take 1 tablet by mouth once daily. No current facility-administered medications for this visit. FAMILY HISTORY Problem Relation Age of Onset Diabetes Mother Thyroid Mother Diabetes Father COPD Father smoker Diabetes Sister Bipolar disorder Sister Bipolar disorder Daughter other (10 grandchildren) Grandchild Cancer No Family History Social History Tobacco Use Smoking status: Former Packs/day: 0.75 Years: 40.00 Additional pack years: 0.00 Total pack years: 30.00 Types: Cigarettes Start date: 02/17/1970 Quit date: 11/26/2010 Years since quittin.8 Smokeless tobacco: Never Vaping Use Vaping Use: Never used Substance Use Topics Alcohol use: Yes Comment: 2 galsses of wine 1-2 times per week Drug use: No EXAM: BP 132/70 Pulse 78 Resp 16 SpO2 91% PHYSICAL EXAM: General Appearance: Well appearing, alert, in no acute distress, well-hydrated, well nourished.. Skin: Skin color, texture, turgor normal, no suspicious rashes or lesions. Head: Normocephalic, no masses, lesions, tenderness or abnormalities. Eyes: Anicteric sclera. Extraocular movements are intact. . Lungs: Lungs clear to auscultation. No wheezing, rhonchi, rales.. Heart: RRR without murmur, gallop, or rubs. No ectopy. Neurologic: Gait normal. ASSESSMENT/PLAN: 1. Postural dizziness - ICD9: 780.4, ICD10: R42 (primary diagnosis) Will go ahead and trial decreasing lisinopril to 30 mg. Stay well hydrated. Symptoms are positional -- so change positions slowly. Could also consider compression stockings. Recheck in 1 month. 2. Blood pressure alteration - ICD9: 796.4, ICD1 (more content not included)... [facility]08-07-[facility] History of Present illness Narrative* Lorenza Vo APRN.DRYING TUNNEL OPERATOR - 09/24/2023 1:31 PM EDT This is a 73 year old female who presents today with: Patient presents with: Recheck: 1 month follow up HISTORY OF PRESENT ILLNESS: Emily Lopez is a 73 year old female. Patient presents with: Recheck: 1 month follow up We tried to change her blood pressure medication regimen so that she was not taking all of her medications at the same time. We changed the lisinopril to the evening. She reports no change in her symptoms. Describes dizziness as a sensation of movement in her head. Feels lightheaded. Nothing actually spinning. Refers that if she gets up slower and moves slower, it isn't as bad. Refers that if she has to move quickly, then symptoms are worse. She does have an upcoming appoint with vascular due to recent ultrasound findings and blood pressure variation between arms. PAST MEDICAL HISTORY: PAST MEDICAL HISTORY No date: COPD (chronic obstructive pulmonary disease) (HCC) 01/15/2012: HTN (hypertension) No date: Hyperlipidemia No date: Macular degeneration No date: Meniere's disease PAST SURGICAL HISTORY No date: APPENDECTOMY No date: CHOLECYSTECTOMY 08/27/2021: COLONOSCOPY Comment: repeat in 5 years 12/04/2016: COLONOSCOPY FLX DX W/COLLJ SPEC WHEN PFRMD Comment: Colonoscopy - regular villous adenoma recommended 3 year follow-up No date: PAST SURGICAL HISTORY OF Comment: exploratory lap for endometriosis 1997: SURGERY (GENERAL SURGERY) CONSULT Comment: LEFT ARM SURGERY No date: TONSILLECTOMY HX No date: TOTAL ABDOM HYSTERECTOMY Comment: age 42 ALLERGIES Tetanus Vaccines And Toxoid, Codeine, Penicillins, Seasonal Allergies, and Sulfa (Sulfonamide Antibiotics) MEDICATIONS Current Outpatient Medications Medication Sig metFORMIN (GLUCOPHAGE) 500 mg tablet Take 1 tablet by mouth daily with breakfast. semaglutide (RYBELSUS) 3 mg tablet Take 1 tablet by mouth daily before breakfast. Take 30 minutes before the first food, beverage, or other oral medications of the day with no more than 4 ounces of plain water ergocalciferol 50,000 unit capsule (VITAMIN D2, DRISDOL) Take 1 capsule by mouth one time a week. albuterol HFA (PROAIR HFA) 90 mcg/actuation inhaler Inhale 2 Puffs as instructed every 4 hours as needed. xqyixpqjokm-reuorsabg-gqfdiyqr (TRELEGY ELLIPTA) 100-62.5-25 mcg inhalation powder Inhale 1 Puff asinstructed once daily. azithromycin (ZITHROMAX) 250 mg tablet Take 2 tablets on Day 1, then 1 tablet daily x 4 days. atorvastatin (LIPITOR) 80 mg tablet Take 1 tablet by mouth once daily. metoprolol succinate ER (TOPROL XL) 25 mg 24 hr tablet Take 1 tablet by mouth once daily. amLODIPine (NORVASC) 10 mg tablet Take 1 tablet by mouth once daily. lisinopril (ZESTRIL) 40 mg tablet Take 1 tablet by mouth once daily. Lancets lancets Test blood sugar(s) 1 times daily. Dx: Type 2 DM - Controlled E11.9 Insulin: No blood sugar diagnostic (BLOOD GLUCOSE TEST) test strip Test blood sugar(s) 1 times daily. Dx: Type 2 DM - Controlled E11.9 Insulin: Yes vit A,C,B-Sixo-Lmccrd (PRESERVISION AREDS) 7,160-113-100 jnld-rk-uqea tab Take by mouth. aspirin, enteric coated (ASPIRIN LOW DOSE) 81 mg EC tablet Take 1 tablet by mouth once daily. No current facility-administered medications for this visit. FAMILY HISTORY Problem Relation Age of Onset Diabetes Mother Thyroid Mother Diabetes Father COPD Father smoker Diabetes Sister Bipolar disorder Sister Bipolar disorder Daughter other (10 grandchildren) Grandchild Cancer No Family History Social History Tobacco Use Smoking status: Former Packs/day: 0.75 Years: 40.00 Additional pack years: 0.00 Total pack years: 30.00 Types: Cigarettes Start date: 02/17/1970 Quit date: 11/26/2010 Years since quittin.8 Smokeless tobacco: Never Vaping Use Vaping Use: Never used Substance Use Topics Alcohol use: Yes Comment: 2 galsses of wine 1-2 times per week Drug use: No EXAM: BP 132/70 Pulse 78 Resp 16 SpO2 91% PHYSICAL EXAM: General Appearance: Well appearing, alert, in no acute distress, well-hydrated, well nourished.. Skin: Skin color, texture, turgor normal, no suspicious rashes or lesions. Head: Normocephalic, no masses, lesions, tenderness or abnormalities. Eyes: Anicteric sclera. Extraocular movements are intact. . Lungs: Lungs clear to auscultation. No wheezing, rhonchi, rales.. Heart: RRR without murmur, gallop, or rubs. No ectopy. Neurologic: Gait normal. ASSESSMENT/PLAN: 1. Postural dizziness - ICD9: 780.4, ICD10: R42 (primary diagnosis) Will go ahead and trial decreasing lisinopril to 30 mg. Stay well hydrated. Symptoms are positional -- so change positions slowly. Could also consider compression stockings. Recheck in 1 month. 2. Blood pressure alteration - ICD9: 796.4, ICD10: R68.89 Follow-up with vascular, as planned. Discussed treatment plan and patient voices understanding. Patient's questions answered appropriately. Medications and potential side effects were discussed and patient voices understanding. Return to the office as scheduled or as needed for worsening/no improvement. Lorenza Vo APRN.[facility] documented [facility] Telephone encounter Note * Telephone Encounter - Ana Rosa Saenz MA - 09/18/2023 11:15 AM EDT Patient informed and verbalized understanding. Ana Rosa Saenz MA [facility] Miscellaneous Notes* Telephone Encounter - Ana Rosa Saenz MA - 09/18/2023 11:15 AM EDT Patient informed and verbalized understanding. Ana Rosa Saenz MA * Telephone Encounter - Rober Rubio MD - 09/18/2023 10:38 AM EDT Arterial studies are showing some differences in blood flow comparing one arm to the other. Refer to vascular surgery. documented in this encounter[facility]08-[facility]24 Telephone encounter Note * Telephone Encounter - Rober Rubio MD - 09/18/2023 10:38 AM EDT Arterial studies are showing some differences in blood flow comparing one arm to the other. Refer to vascular surgery. [facility] Instructions* Patient Instructions* Lorenza Vo APRN.CNP - 08/08/2023 2:16 PM EDT Change the lisinopril to evening. Rybelsus sent to the pharmacy -- we'll see what insurance says. Schedule the ultrasound. Recheck in 1 month. documented in this encounter[facility]06-[facility]24 Nurse Note* Gil Garnica LPN - 08/08/2023 2:09 PM EDT R arm 13 L arm 12.25 [facility] Nurse Note* Gil Garnica LPN - 08/08/2023 2:09 PM EDT R arm 13 L arm 12.25 documented in this encounter[facility]06-[facility] History of Present illness Narrative* Lorenza Vo APRN.CNP - 08/08/2023 1:03 PM EDT This is a 72 year old female who presents today with: Patient presents with: Recheck: 2 week follow up HISTORY OF PRESENT ILLNESS: Emily Lopez is a 72 year old female. 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 Questioning rybelsus. Pt taking eliquis Pt does not report any signs of bruising or bleeding Pt reports no bleeding gums, hematuria or melena PAST MEDICAL HISTORY: PAST MEDICAL HISTORY Diagnosis Date COPD (chronic obstructive pulmonary disease) (HCC) HTN (hypertension) 01/15/2012 Hyperlipidemia Macular degeneration Meniere's disease PAST SURGICAL HISTORY Procedure Laterality Date APPENDECTOMY CHOLECYSTECTOMY COLONOSCOPY 08/27/2021 repeat in 5 years COLONOSCOPY FLX DX W/COLLJ SPEC WHEN PFRMD 12/04/2016 Colonoscopy - regular villous adenoma recommended 3 year follow-up PAST SURGICAL HISTORY OF exploratory lap for endometriosis SURGERY (GENERAL SURGERY) CONSULT 1997 LEFT ARM SURGERY TONSILLECTOMY HX TOTAL ABDOM HYSTERECTOMY age 42 ALLERGIES Tetanus Vaccines And Toxoid, Codeine, Penicillins, Seasonal Allergies, and Sulfa (Sulfonamide Antibiotics) MEDICATIONS Current Outpatient Medications Medication Sig albuterol HFA (PROAIR HFA) 90 mcg/actuation inhaler Inhale 2 Puffs as instructed every 4 hours as needed. xgkmlbfupff-sjahqknbo-fhrtijyy (TRELEGY ELLIPTA) 100-62.5-25 mcg inhalation powder Inhale 1 Puff asinstructed once daily. azithromycin (ZITHROMAX) 250 mg tablet Take 2 tablets on Day 1, then 1 tablet daily x 4 days. atorvastatin (LIPITOR) 80 mg tablet Take 1 tablet by mouth once daily. metoprolol succinate ER (TOPROL XL) 25 mg 24 hr tablet Take 1 tablet by mouth once daily. ELIQUIS 5 mg tab(s) Take 1 tablet by mouth two times a day. ergocalciferol 50,000 unit capsule (VITAMIN D2, DRISDOL) Take 1 capsule by mouth one time a week. amLODIPine (NORVASC) 10 mg tablet Take 1 tablet by mouth once daily. lisinopril (ZESTRIL) 40 mg tablet Take 1 tablet by mouth once daily. metFORMIN (GLUCOPHAGE) 500 mg tablet Take 1 tablet by mouth daily with breakfast. Lancets lancets Test blood sugar(s) 1 times daily. Dx: Type 2 DM - Controlled E11.9 Insulin: No blood sugar diagnostic (BLOOD GLUCOSE TEST) test strip Test blood sugar(s) 1 times daily. Dx: Type 2 DM - Controlled E11.9 Insulin: Yes vit A,C,G-Lose-Ywkjhq (PRESERVISION AREDS) 7,160-113-100 kltf-mk-kpxx tab Take by mouth. aspirin, enteric coated (ASPIRIN LOW DOSE) 81 mg EC tablet Take 1 tablet by mouth once daily. No current facility-administered medications for this visit. FAMILY HISTORY Problem Relation Age of Onset Diabetes Mother Thyroid Mother Diabetes Father COPD Father smoker Diabetes Sister Bipolar disorder Sister Bipolar disorder Daughter other (10 grandchildren) Grandchild Cancer No Family History Social History Tobacco Use Smoking status: Former Packs/day: 0.75 Years: 40.00 Additional pack years: 0.00 Total pack years: 30.00 Types: Cigarettes Start date: 02/17/1970 Quit date: 11/26/2010 Years since quittin.7 Smokeless tobacco: Never Vaping Use Vaping Use: Never used Substance Use Topics Alcohol use: Yes Comment: 2 galsses of wine 1-2 times per week Drug use: No EXAM: BP 114/72 Pulse 96 Resp 16 Wt 86.2 kg (190 lb) SpO2 95% BMI 35.90 kg/m PHYSICAL EXAM: General Appearance: Well appearing, alert, in no acute distress, well-hydrated, well nourished.. Skin: Skin color, texture, turgor normal, no suspicious rashes or lesions. Head: Normocephalic, no masses, lesions, tenderness or abnormalities. Eyes: Anicteric sclera. Extraocular movements are intact. . Lungs: Lungs clear to auscultation. No wheezing, rhonchi, rales. SOB on exertion and while talking Heart: RRR without murmur, gallop, or rubs. No ectopy. Extremities: No deformities, edema, skin discoloration, clubbing or cyanosis. Good capillary refill. Neurologic: Gait normal. ASSESSMENT/PLAN: 1. Postural dizziness - ICD9: 780.4, ICD10: R42 (primary diagnosis) - orthostatic vitals negative - continue current medication regimen: 40 mg lisinopril, 10 mg amlodipine, 25 mg metoprolol succinate Will change one of her medications to the evening to see if decreases postural dizziness. - Take 40 mg lisinopril in the evening. Recheck in 1 month, sooner if needed. 2. Type 2 diabetes mellitus without complication, with long-term current use of insulin (HCC) - ICD9: 250.00, V58.67, ICD10: E11.9, Z79.4 - Controlled - Continue current medications - will check to see insurance coverage of [facility], continue metformin until then. - METFORMIN 500 MG TABLET 3. Blood pressure alteration - ICD9: 796.4, ICD10: R68.89 - orthostatic BP's L arm: 126/85, 124/85, 116/78 - orthostatic BP's R arm: 187/99, 152/82, 165/82 Will get ultrasound to r/o subclavian steel syndrome. - US ARM ARTERIAL [facility] 5. Vitamin D deficiency - ICD9: 268.9, ICD10: E55.9 - ERGOCALCIFEROL (VITAMIN D2) 1,250 MCG (50,000 UNIT) CAPSULE Discussed treatment plan and patient voices understanding. Patient's questions answered appropriately. Medications and potential side effects were discussed and patient voices understanding. Return to the office as scheduled or as needed for worsening/no improvement. Lorenza Vo APRN.CNP The patient indicates understanding of these issues and agrees with the plan. [facility] Instructions* Patient Instructions* Martin Benites APRN.CNP - 07/23/2023 4:22 PM EDT There are new nodules and mucus plugging of bronchiole on CT scan today. Since you are having an increased cough with yellow mucus production I have sent in treatment with zithromax. We will wait on the final radiology review to determine follow up. Refills of your inhalers have been sent in. Please schedule with the in tube conversion technician in [place] for follow up of COPD and emphysema. Thank you Martin Benites CNP documented in this encounter[facility]06-[facility] History of Present illness Narrative* Martin Benites APRN.CNP - 07/23/2023 1:27 PM EDT Images from the original note were not included. LUNG SCREENING ANNUAL VISIT PRIMARY CARE PHYSICIAN: Rober Rubio MD PULMONARY PROVIDER: Dr. Juventino Cyr Results will be communicated via letter or electronic record if applicable. Visit Delivery: In Person Patient Visit Type: established Current or Ex-smoker? Ex Exam Type: annual LDCT Number of Pack Years: 30 Current smoker (=0) or Number of Years since Quit: 12 The patient's smoking history is similar to prior year shared decision visit. The reason for the discrepancy is NA Chief Complaint: Established patient in lung cancer screening program here for annual follow-up. Impression / Recommendations Emily Lopez presents for annual lung cancer screening annual exam and nodule evaluation. Plan: Indeterminate pulmonary nodules: Previously identified nodules appear stable. There are new nodules in RUL with mucus plugging and pacification of RUL bronchiole. Low dose CT Scan to be repeated in 3-6 mos. Plan subject to change pending final radiology report and recommendations. Nature of the lung nodule(s) and the options for further evaluation discussed in detail with patient. Emily Lopez expressed understanding and is in agreement with plan. 2. Encounter for screening for malignant neoplasm of respiratory organs I have determined that the patient is eligible for continued low dose CT screening based on age, absence of signs or symptoms of lung cancer, smoking history and total pack years. The patient was counseled on the importance of adherence to annual LDCT lung cancer screening, impact of comorbidities and ability or willingness to undergo diagnosis and treatment. The patient understands and feels comfortable with it: Yes. 3. Nicotine Dependence The patient was counseled on the importance of maintaining cigarette smoking abstinence - The patient is committed to remaining abstinent from tobacco. 4. COPD: pt needs refills on Trelegy and albuterol is broken. The pharmacy she got it at is now closed. Refills will be sent, but pt is overdue for follow up with in tube conversion technician. She had PFT 01/2023 at [facility] per patient. Plan to refill medications and get follow up appt with Dr. Bell. 5. Acute bronchiolitis Treat with z pack. May take mucinex and use inhalers as needed. I spent a total of 30 minutes on the date of the service which included preparing to see the patient, fcef-cc-opdd patient care, completing clinical documentation, performing a medically appropriate examination, counseling and educating the patient/family/caregiver, ordering medications, tests, or p rocedures, communicating with other HCPs (not separately reported), independently interpreting results (not separately reported), communicating results to the patient/family/caregiver, and care coordination (not separately reported). Martin Benites APRN.[facility] July 23, 2023 1:30 PM History of Present Illness: Emily Lopez is a 72 year old female who is presenting today for annual lung cancer screening LDCT and nodule surveillance/management. Patient has multiple nodules found on previous lung cancer screening LDCT. Last LDCT was performed on 12/20/2021 and was LUNG RADS Category 2. Previous potentially significant incidental findings on imaging: None. Patient is a former smoker with a 30 pack year history. Patient quit smoking 12 years ago at age 60. Patient will continue to be eligible for lung cancer screening until age 75. The patient does not have any symptoms or signs of lung cancer. Patient has SOB with their daily activity. Pt has wheezing. Patient denies feeling of chest tightness/congestion in the chest. Patient does not have a new or concerning cough, and denies hemoptysis. Patient does have a chronic daily cough. Denies regular or recent fevers/chills. Patient does not have any significant unintentional weight loss. Patient denies having any respiratory infections or COVID-19 in the past few months. Increased shortness of breath, chest tightness wheezing and coughing with yellow sputum since May. No fevers or sweats. On Trelegy daily, and needs to get reestablished with pulmonology. Pt was admitted 01/2023 at [facility] and had PFT there. Modified Medical Research [place] Dyspnea Scale (MMRC) I am too breathless to leave the house or I am breathless when dressing 4 Last 12 Encounter Wt Readings: Date: Wt: 07/23/2023 84.7 kg (186 lb 11.7 oz) 07/16/2023 85.3 kg (188 lb) 04/14/2023 82.1 kg (181 lb) 02/24/2023 82.6 kg (182 lb) 01/31/2023 76.6 kg (168 lb 14.4 oz) 06/01/2022 82.6 kg (182 lb) 01/15/2022 81.6 kg (180 lb) 11/29/2021 79.8 kg (176 lb) 08/27/2021 81.6 kg (180 lb) 06/25/2021 81.6 kg (180 lb) 04/10/2021 83.9 kg (185 lb) 03/21/2021 83 kg (183 lb) Social History Tobacco Use: .75 packs/day, for 40 years. Quit 11/26/2010. Types: Cigarettes Past Medical History: PAST MEDICAL HISTORY Diagnosis Date COPD (chronic obstructive pulmonary disease) (HCC) HTN (hypertension) 01/15/2012 Hyperlipidemia Macular degeneration Meniere's disease Family Hx: FAMILY HISTORY Problem Relation Age of Onset Diabetes Mother Thyroid Mother Diabetes Father COPD Father smoker Diabetes Sister Bipolar disorder Sister Bipolar disorder Daughter other (10 grandchildren) Grandchild Cancer No Family History Surgical Hx: PAST SURGICAL HISTORY Procedure Laterality Date APPENDECTOMY CHOLECYSTECTOMY COLONOSCOPY 08/27/2021 repeat in 5 years COLONOSCOPY FLX DX W/COLLJ SPEC WHEN PFRMD 12/04/2016 Colonoscopy - regular villous adenoma recommended 3 year follow-up PAST SURGICAL HISTORY OF exploratory lap for endometriosis SURGERY (GENERAL SURGERY) CONSULT 1997 LEFT ARM SURGERY TONSILLECTOMY HX TOTAL ABDOM HYSTERECTOMY age 42 Allergies: ALLERGIES Allergen Reactions Tetanus Vaccines An* Anaphylaxis Codeine Other: See Comments Patient states it feels like bugs are crawling on her Penicillins Rash Seasonal Allergies Other: See Comments Sulfa (Sulfonamide * Rash Review Of Systems: See HPI for ROS All of the remainder systems were reviewed and negative. PHYSICAL EXAMINATION: BP 150/74 Pulse 88 Wt 186 lb 11.7 oz (84.7kg) SpO2 94% General appearance: well appearing, in no acute distress, and alert Skin: skin color, texture, turgor normal, no rashes or lesions Nose/Sinuses: Negative Oropharynx: Lips, mucosa, and tongue normal, teeth and gums normal, oropharynx normal Neck: Supple, no adenopathy; thyroid symmetric, normal size Respiratory: lungs clear to auscultation no wheezing or rhonchi Cardiovascular: Negative. RRR without murmur, gallop, or rubs. No ectopy Musculoskeletal: Extremities normal. No deformities, edema, or skin discoloration. Neuro: Oriented X 3 Data Review I have visually reviewed imaging and testing below CT imaging done today was reviewed and analyzed independently and compared to prior CT chest imaging by practitioner and awaiting radiology review. New 3 mm RUL nodule Imaging IMPRESSION: LungRADS category: 2 LungRADS modifier: None LungRADS 0 reason: n/a Recommendations: Continue annual screening with LDCT in 12 months. Other actionable findings: Reference: [employer]. Lung CT Screening Reporting and Data System (Lung-RADS). Available at: http://www.acr.org/Quality-Safety/Resources/LungRADS Film Casting Operator: ELLEN Transcribe Date/Time: Dec 21 2021 9:16A Dictated by : GABRIELA RICKETTS MD This examination was interpreted and the report reviewed and electronically signed by: GABRIELA RICKETTS MD on Dec 21 2021 9:33AM EST Results-Findings * * *Final Report* * * DATE OF EXAM: Dec 20 2021 2:01PM [facility] [place] LUNG FOLLOWUP WO IVCON / PROCEDURE REASON: R91.8-Lung nodules * * * * Physician Interpretation * * * * EXAMINATION: CT LUNG FOLLOWUP WO IVCON CLINICAL HISTORY: Technique: Spiral CT acquisition of the chest from the thoracic inlet to the upper abdomen without contrast. MQ: [id number]_6 Followup LDCT Patient characteristics: * Hpnb-eq-Hptgh: 1950; Age at exam: 71 years * Gender: Female * Lung Disease: Asymptomatic (no signs or symptoms of lung disease) * Number of Pack Years: 30 * Current smoker (=0) or Number of Years since Quit: 10 * Ordering provider and NPI: BECKY KATZ [id number] * Interpreting radiologist and NPI: Dasha [id number] Exam acquisition parameters: * Exam Date: 12/20/2021 2:01 PM * Site: [facility] * * CT System Physical Security Specialist: [email or web address] * CT System Model: Dual Source * Tube Current-Time (mA-sec): 50 * Peak Voltage (kV): 120V * Scan Time (sec): 6.18 * Scan Volume (z-length, cm): 32.80 * Pitch: 1 * Slice Thickness (mm): 1.5 * CT Dose-Length Product: 117.9 mGy*cm * CT Dose Index: 3.28mGy * CT Dose Reduction Method: Automated exposure control (AEC) COMPARISON: CT 03/21/2021, 03/08/2020 RESULT: Are nodules present? Yes, 1-5 nodules If No, go to IMPRESSION. If yes, proceed with characterization of the FIVE largest nodules. Nodule 1: This Solid nodule previously present in RIGHT lower lobe on image 182, barely visible on today's study with small residual groundglass opacity on image 175 Nodule 2: This Solid nodule is located in the Left Lower Lobe on slice number 223 with an average diameter of 4 mm. Stable Nodule 3: This Solid nodule is located in the Left Upper Lobe on slice number 149 with an average diameter of 3 mm. Stable Nodule 4: This Solid nodule is located in the RIGHT lower lobe image 210 with diameter 4 mm, stable compared to multiple priors Other lung nodule comments: Additional nodules stable, for example RIGHT lower lobe image 165, possibly focal mucus impaction. Other findings: The central airways are patent. Mild diffuse bronchial wall thickening is seen. There is mild bibasilar atelectasis. Atherosclerotic calcifications are seen in the aorta as well as arch branch vessels, notably the LEFT subclavian artery. Mild aortic valve leaflet calcifications are seen. Borderline dilation LEFT atrium, mitral annular calcific changes inferiorly and posteriorly. There is no pericardial effusion. The thyroid gland is is somewhat low in attenuation, as could be seen with hypothyroidism. The gallbladder is surgically absent. Atherosclerotic calcifications are seen in the abdominal aorta. No destructive bone lesion is seen. Remote right humeral fracture is suspected. Mild degenerative changes are seen in the thoracic spine, mild dextroconvex curvature lower thoracic level. Emphysema: Trivial (<5%), Centrilobular, Upper lobe Coronary Artery Calcifications: Moderate, previously reported International Relations Professor (topogram) images: No additional findings. Last CT Chest - Impression Only No resulted procedures found. Last XR Chest - Impression Only XR CHEST 2V FRONTAL/LAT Exam End: 02/24/2023 3:15 PM (Final result) Impression: IMPRESSION: No acute radiographic abnormality. ... Pulmonary Function Testing: SPIROMETRY - BASELINE AND POST DILATOR ([id number]) - ordered on 03/08/20 [facility] [address] [place] [address] Test Date: 2020-03-08 Pat Name: EMILY LOPEZ Department: Room: Gender: Female Elder Assistant: STEPHY Scales : 1950 Requested By: Rober RUBIO Order Number: [id number] Reading MD: Hoda Cyr M.D. Interpretive Statements 2 Puffs of albuterol (180mcg) delivered by MDI via Aerochamber HRpre =101 /min, HRpost= 101/min. ATS/ERS acceptability and repeatability standards for spirometry met. IMPRESSION: Spirometry indicates moderate obstruction. There was not a significant bronchodilator response. Electronically Signed On 03-09-2020 16:26:46 EST by Hoda Cyr M.D. Site: WO ID: [id number] Name: EMILY LOPEZ Visit Date: 03/08/2020 Second ID: [id number] Referring Doctor: Rober MONTERO Elder Assistant: STEPHY Scales Age: 69 : 1950 Sex: Female Race: Height: 61.80 Inches Weight: 187.00 Lbs BSA: 1.85 Order IDs: [id number] Requested Test(s): Spirometry - baselline and post dilator Post Test Comments: 2 Puffs of albuterol (180mcg) delivered by MDI via Aerochamber HRpre =101 /min, HRpost= 101/min. ATS/ERS acceptability and repeatability standards for spirometry met. Review Status: Not Reviewed Pre-Bronch Post-Bronch Pred LLN ULN Actual %Pred Actual %Chng SPIROMETRY FVC (L) 2.63 1.92 3.38 2.05 77 2.12 3 FEV1 (L) 2.05 1.49 2.59 1.19 57 1.23 3 FEV1/FVC (%) 78 65 9 0 58 73 58 FEF 25% (L/sec) 4.51 2.36 6.65 1.58 35 1.57 -1 FEF 50% (L/sec) 3.34 1.53 5.15 0.68 20 0.76 11 FEF 75% (L/sec) 0.43 0.16 1.13 0.21 48 0.25 21 FEF 25-75% (L/sec) 1.78 0.82 3.15 0.52 29 0.58 11 FEF Max (L/sec) 5.31 3.16 59 3.25 2 FIVC (L) 2.11 1.90 -9 FIF 50% (L/sec) 3.36 1.92 4.79 3.92 116 3.19 -18 FIF Max (L/sec) 3.93 3.21 -18 FET (sec) 8.71 8.84 1 Back Extrap Vol (L) 0.07 0.03 -50 Time To FEFmax (sec) 0.079 0.064 -18 documented in this encounterOhio [facility]06-[facility]-2024 History of Present illness Narrative* Myra Ariza RT(R) - 07/23/2023 12:30 PM EDT Radiology Service Progress Note PATIENT NAME: Emily Lopez DATE OF SERVICE: July 23, 2023 TIME: 1:01 PM PATIENT IDENTITY VERIFICATION COMPLETED USING TWO (2) IDENTIFIERS: Name and Date of confirmedby patient verbally and Name and Date of confirmed by identification band. FALL SCREENING: Has the patient had 2 falls in the last year or 1 fall with injury or currently using an Ambulatory Assistive Device (Walker, Cane, Wheelchair, Crutches, etc.)? Yes, Patient High Riskfor Falls What interventions were put in place to prevent falls during this visit? Increased Observations by Caregivers PATIENT GENDER DATA: Female. status: : No status: NO. PATIENT RELEVANT IMPLANT DATA REVIEWED: Yes PATIENT PRESENTS WITH AN IMPLANTABLE OR ATTACHED RECOOPERER: No RADIOLOGY DEPARTMENT: CT; Exam(s) Completed: Lung Screening PERIPHERAL IV DATA: Not applicable SIGNED BY: RT Sj(R) July 23, 2023 1:01 PM documented in this encounterOhio Valley Hospital06-05-2024 NoteHNO ID: [id number] Author: MYRA ARIZA RT(R) Service: Radiology Author Type: Technologist Type: Progress Notes Filed: 07/23/2023 13:02 Note Text: Radiology Service Progress Note PATIENT NAME: Emily Lopez DATE OF SERVICE: July 23, 2023 TIME: 1:01 PM PATIENT IDENTITY VERIFICATION COMPLETED USING TWO (2) IDENTIFIERS: Name and Date of confirmed by patient verbally and Name and Date of confirmed by identification band. FALL SCREENING: Has the patient had 2 falls in the last year or 1 fall with injury or currently using an Ambulatory Assistive Device (Walker, Cane, Wheelchair, Crutches, etc.)? Yes, Patient High Risk for Falls What interventions were put in place to prevent falls during this visit? Increased Observations by Caregivers PATIENT GENDER DATA: Female. status: : No status: NO. PATIENT RELEVANT IMPLANT DATA REVIEWED: Yes PATIENT PRESENTS WITH AN IMPLANTABLE OR ATTACHED RECOOPERER: No RADIOLOGY DEPARTMENT: CT; Exam(s) Completed: Lung Screening PERIPHERAL IV DATA: Not applicable SIGNED BY: RT Sj(R) July 23, 2023 1:[address] [id number] Telephone encounter Note* Telephone Encounter - Ana Rosa Saenz MA - 07/17/2023 11:42 AM EDT Patient informed to start 80 mg Lipitor. Verbalized understanding. Will recheck labs in 6 weeks. Has appt for 08/07/[address] Rubio. Please resend Rx to correct pharmacy. [facility] [place] [facility] [place]. Ana Rosa Saenz MA [facility] Miscellaneous Notes* Telephone Encounter - Ana Rosa Saenz MA - 07/17/2023 11:42 AM EDT Patient informed to start 80 mg Lipitor. Verbalized understanding. Will recheck labs in 6 weeks. Has appt for 08/07/[address] Rubio. Please resend Rx to correct pharmacy. [facility] [place] [facility] Please send to [facility] in [place]. Ana Rosa Saenz MA * Telephone Encounter - Rober Rubio MD - 07/17/2023 11:37 AM EDT Increase lipitor to 80 mg a day and recheck liver and lipid in six weeks. * Telephone Encounter - Lorena Ramsey OCCA - 07/17/2023 11:32 AM EDT TC to patient who states she has not missed any doses of her Lipitor. ZEYAD Vazquez * Telephone Encounter - Rober Rubio MD - 07/17/2023 10:56 AM EDT Labs are overall ok. Cholesterol is up a little. Has she missed any lipitor doses? documented in this encounterOhio [facility] Hospital05-30-2024 Telephone encounter Note * Telephone Encounter - Rober Rubio MD - 07/17/2023 11:37 AM EDT Increase lipitor to 80 mg a day and recheck liver and lipid in six weeks. [facility] Telephone encounter Note* Telephone Encounter - Lorena Ramsey OCCA - 07/17/2023 11:32 AM EDT TC to patient who states she has not missed any doses of her Lipitor. ZEYAD Vazquez [facility] Telephone encounter Note* Telephone Encounter - Rober Rubio MD - 07/17/2023 10:56 AM EDT Labs are overall ok. Cholesterol is up a little. Has she missed any lipitor doses? [facility] History of Present illness Narrative* Rober Rubio MD - 07/16/2023 10:37 AM EDT Patient presents with: Follow Up HPI: Patient presents today for office visit for follow up. Was started on Eliquis and Metoprolol while in hospital back in January. States since taking thesemedications she experiences severe dizziness. Refers to not having dizziness before starting these meds. Both medications are prescribed twice a day but she finds if she only takes it once a day in the morning dizziness isn't as severe. Per discharge summary in hospital, she was to see [place] [facility] a month after discharge. Has appt in August. Cautioned against self adjusting meds. Did have a zio done. RHYTHM FINDINGS: Patient had a min HR of 60 bpm, max HR of 188 bpm, and avg HR of 88 bpm. Predominant underlying rhythm was Sinus Rhythm. 1 run of Ventricular Tachycardia occurred lasting 7 beats with a max rate of 167 bpm (avg 121 bpm). 192 Supraventricular Tachycardia runs occurred, the run with the fastest interval lasting 4 beats with a max rate of 188 bpm, the longest lasting 19.4 secs with an avg rate of 113 bpm. Isolated SVEs were rare (<1.0%), SVE Couplets were rare (<1.0%), and SVE Triplets were rare (<1.0%). Isolated VEs were frequent (9.8%, [id number]), VE Couplets were rare (<1.0%, 502), and VE Triplets were rare (<1.0%, 68). Ventricular Bigeminy and Trigeminy were present HTN: Denies chest pain No new or worsening shortness of breath Denies headaches Some dizziness since starting on Eliquis and Metoprolol. Is only taking 25 mg once a day of lopressor. Does feel better since doing that Denies palpitations Denies edema No bleeding or bruising issues. DM: Does not check her sugars Has had some weight gain No unexpected weight loss Watches her diet Exercising daily. Using recumbent bike 6 days a week. 30 minutes forward and then 30 minutes backward. Follows with pulmonary. MEDICATIONS: Current Outpatient Medications Medication Sig dtduxmbgdyr-fkcjvpfgc-tikrfpqs (TRELEGY ELLIPTA) 100-62.5-25 mcg inhalation powder Inhale 1 Puff asinstructed once daily. metoprolol tartrate, short acting, (LOPRESSOR) 50 mg tablet Take 0.5 tablets by mouth two times a day. ELIQUIS 5 mg tab(s) Take 1 tablet by mouth two times a day. ergocalciferol 50,000 unit capsule (VITAMIN D2, DRISDOL) Take 1 capsule by mouth one time a week. albuterol HFA (PROAIR HFA) 90 mcg/actuation inhaler Inhale 2 Puffs as instructed every 4 hours as needed. amLODIPine (NORVASC) 10 mg tablet Take 1 tablet by mouth once daily. atorvastatin (LIPITOR) 40 mg tablet Take 1 tablet by mouth once daily. lisinopril (ZESTRIL) 40 mg tablet Take 1 tablet by mouth once daily. metFORMIN (GLUCOPHAGE) 500 mg tablet Take 1 tablet by mouth daily with breakfast. Lancets lancets Test blood sugar(s) 1 times daily. Dx: Type 2 DM - Controlled E11.9 Insulin: No blood sugar diagnostic (BLOOD GLUCOSE TEST) test strip Test blood sugar(s) 1 times daily. Dx: Type 2 DM - Controlled E11.9 Insulin: Yes vit A,C,K-Lshw-Cmwqds (PRESERVISION AREDS) 7,160-113-100 pfoz-gg-wfxk tab Take by mouth. aspirin, enteric coated (ASPIRIN LOW DOSE) 81 mg EC tablet Take 1 tablet by mouth once daily. No current facility-administered medications for this visit. ALLERGIES: ALLERGIES Allergen Reactions Tetanus Vaccines An* Anaphylaxis Codeine Other: See Comments Patient states it feels like bugs are crawling on her Penicillins Rash Seasonal Allergies Other: See Comments Sulfa (Sulfonamide * Rash PAST MEDICAL HISTORY Diagnosis Date COPD (chronic obstructive pulmonary disease) (HCC) HTN (hypertension) 01/15/2012 Hyperlipidemia Macular degeneration Meniere's disease PAST SURGICAL HISTORY Procedure Laterality Date APPENDECTOMY CHOLECYSTECTOMY COLONOSCOPY 08/27/2021 repeat in 5 years COLONOSCOPY FLX DX W/COLLJ SPEC WHEN PFRMD 12/04/2016 Colonoscopy - regular villous adenoma recommended 3 year follow-up PAST SURGICAL HISTORY OF exploratory lap for endometriosis SURGERY (GENERAL SURGERY) CONSULT 1997 LEFT ARM SURGERY TONSILLECTOMY HX TOTAL ABDOM HYSTERECTOMY age 42 FAMILY HISTORY Problem Relation Age of Onset Diabetes Mother Thyroid Mother Diabetes Father COPD Father smoker Diabetes Sister Bipolar disorder Sister Bipolar disorder Daughter other (10 grandchildren) Grandchild Cancer No Family History Social History Tobacco Use Smoking status: Former Packs/day: 0.75 Years: 40.00 Additional pack years: 0.00 Total pack years: 30.00 Types: Cigarettes Start date: 02/17/1970 Quit date: 11/26/2010 Years since quittin.6 Smokeless tobacco: Never Vaping Use Vaping Use: Never used Substance Use Topics Alcohol use: Yes Comment: 2 galsses of wine 1-2 times per week Drug use: No Reviewed current medications, allergies, past medical history, surgical history, family history andsocial history today. REVIEW OF SYSTEMS All other reviewed and negative other than HPI. HEALTH MAINTENANCE: Reviewed health maintenance issues today and recommended the following in detail. Dilated Retinal Exam -done in February. VITALS: BP 135/72 Pulse 99 Ht 154.9 cm (5' 1) Wt 85.3 kg (188 lb) BMI 35.52 kg/m Last 4 Encounter Wt Readings: Date: Wt: 07/16/2023 85.3 kg (188 lb) 04/14/2023 82.1 kg (181 lb) 02/24/2023 82.6 kg (182 lb) 01/31/2023 76.6 kg (168 lb 14.4 oz) PHYSICAL EXAMINATION: General appearance: Well appearing, alert, in no acute distress, well-hydrated, well nourished. Skin: Skin color, texture, turgor normal, no suspicious rashes or lesions Head: Normocephalic, no masses, lesions, tenderness or abnormalities Lungs: Lungs clear to auscultation. No wheezing, rhonchi, rales Heart: RRR without murmur, gallop, or rubs. No ectopy Abdomen: Normal abdominal exam, Abdomen soft, non-tender. Bowel sounds normal. No masses, organomegaly Extremities: No deformities, edema, skin discoloration, clubbing or cyanosis. Good capillary refill. ASSESSMENT/PLAN: 1. Atrial fibrillation with RVR (HCC) - ICD9: 427.31, ICD10: I48.91 (primary diagnosis) - presented late to appt and had to leave quickly for her ride. Held off doing EKG and orthos at her request for timeliness in visit. She did agree to at least get labs before leaving. Change to toprol for better dosing of meds since she is using lopressor unevenly. Recheck in two weeks - THYROID STIMULATING HORMONE - METOPROLOL SUCCINATE ER 25 MG TABLET,EXTENDED RELEASE 24 HR 2. Primary hypertension - ICD9: 401.9, ICD10: I10 - Controlled - Continue current medications - Recommend regular aerobic exercise 3. Lung nodule - ICD9: 793.11, ICD10: R91.1 - follow with pulmonary. 4. COPD with chronic bronchitis (HCC) - ICD9: 491.20, ICD10: J44.89 - follow 5. Fatty liver - ICD9: 571.8, ICD10: K76.0 - follow labs. 6. Type 2 diabetes mellitus without complication, without long-term current use of insulin (HCC) - ICD9: - HEMOGLOBIN A1C 7. Obesity, Class I, BMI 30-34.9 - ICD9: 278.00, ICD10: E66.9 - stable. Rober Rubio MD [facility] Telephone encounter Note * Telephone Encounter - Pamela Kim - 06/19/2023 9:49 AM EDT Patient has been identified by name and date of : Yes Requested Prescriptions Pending Prescriptions Disp Refills bqyiixchowq-nuqnzoyal-yulpjouo (TRELEGY ELLIPTA) 100-62.5-25 mcg inhalation powder 60 Each 5 Sig: Inhale 1 Puff as instructed once daily. RX INSTRUCTIONS: Patient aware RX will be sent to pharmacy. No need to notify patient. Pamela Conroy [facility] Work Phone: 1(465) 146-212805-02-2024 Miscellaneous Notes* Telephone Encounter - Pamela Kim - 06/19/2023 9:49 AM EDT Patient has been identified by name and date of : Yes Requested Prescriptions Pending Prescriptions Disp Refills hjpasnptawp-fvnlstrbj-liwngtnf (TRELEGY ELLIPTA) 100-62.5-25 mcg inhalation powder 60 Each 5 Sig: Inhale 1 Puff as instructed once daily. RX INSTRUCTIONS: Patient aware RX will be sent to pharmacy. No need to notify patient. Pamela Conroy documented [facility]04-04-2024 Miscellaneous Notes* Telephone Encounter - Myra Mcgrath MA - 05/22/2023 12:15 PM EDT Letter sent to patient * Telephone Encounter - Myra Mcgrath MA - 05/15/2023 9:43 AM EDT Cardiology 07/09/23 appt. Mailbox is full, unable to leave message. [employer] message sent. * Telephone Encounter - Rober Rubio MD - 05/15/2023 8:58 AM EDT No definite a fib seen on monitor. Does have frequent extra eats from her upper chambers. We set her up to see cardiology which I believe is in June. Keep follow up with them. How are palpitations? documented in [facility]01-08-2024 History of Present illness Narrative* Suzanna Beck RT(R) - 02/24/2023 3:10 PM EST Radiology Service Progress Note PATIENT NAME: Emily Lopez DATE OF SERVICE: February 24, 2023 TIME: 3:15 PM PATIENT IDENTITY VERIFICATION COMPLETED USING TWO (2) IDENTIFIERS: Name and Date of confirmedby patient verbally. FALL SCREENING: Has the patient had 2 falls in the last year or 1 fall with injury or currently using an Ambulatory Assistive Device (Walker, Cane, Wheelchair, Crutches, etc.)? No PATIENT GENDER DATA: Female. status: : No status: NO. PATIENT RELEVANT IMPLANT DATA REVIEWED: Yes RADIOLOGY DEPARTMENT: General X-ray: Exam(s) Completed: Chest X-Ray PERIPHERAL IV DATA: Not applicable SIGNED BY: RT Vani(R) February 24, 2023 3:15 PM documented in this encounter[facility]12-20-2023 Consult note Author Catie Huang [facility] February 05, 2023 11:58am Note Date/Time February 05, 2023 11:58am [facility] Medical Records Department [address] [place] [id number] Counseling Note - Pharmacy 02/05/23 1157 MR#: [id number] Acct: [id number] Name: EMILY LOPEZ Rep #:[id number] : 1950 72 From: Catie Huang PCP: Dr. Rober Rubio MD Status:ADM I N Y Location: [place] [address] Pharmacy [facility] has performed discharge medication reconciliation and counseling for this patient. 1. APIXABAN 5MG PO BID 2. METOPROLOL TARTRATE 50MG PO BID 3. OSELTAMIVIR 30MG PO TONIGHT (1 DOSE) The patient's discharge medication list was reviewed for discrepancies and discrepancies were resolved. The patient was counseled on the following discharge medications and changes in medications for homegoing were reviewed. The Reason for Use, instructions for use, and potential side effects were reviewed for all new medications. The patient's questions regarding all of their medications were answered. The patient was able to verbally demonstrate an understanding of their dischargemedications. Medications at Discharge Home Medications albuterol sulfate 90 mcg/actuation aerosol inhaler 2 puff inhalation Q4H PRN PRNWheezing 03/08/20 amlodipine 10 mg tablet 10 mg PO DAILY 03/08/20 aspirin 81 mg tablet,delayed release 81 mg PO DAILY@0800 03/08/20 atorvastatin 40 mg tablet 40 mg PO QHS 03/08/20 lisinopril 40 mg tablet 40 mg PO DAILY 03/08/20 vitamins A,C,P-wgpb-neaxoi 2,148 mcg-113 mg-45 mg-17.4 mg tablet 1 ea PO DAILY 03/08/20 fluticasone fur. 100 mcg-umeclid 62.5 mcg-vilant 25 mcg inhalat.powder (Trelegy Ellipta) 1 inh inhalation Q24H 01/31/23 metformin 500 mg tablet 500 mg PO DAILY 01/31/23 apixaban 5 mg tablet (Eliquis) 5 mg PO BID #60 tabs 02/05/23 metoprolol tartrate 50 mg tablet 50 mg PO BID #60 tabs 02/05/23 oseltamivir 30 mg capsule 30 mg PO BID #1 cap 02/05/23 02/05/23 1158 <Electronically signed by Catie Huang> Date _ Catie Huang Cosigner Signature (if applicable): Date CC: ~ Signed [facility] Work Phone: 1(208) 374-594412-20-2023 Discharge summary Author Hari Iniguez [facility] February 05, 2023 10:53am Note Date/Time February 05, 2023 10:50am [facility] Medical Records Department [address] [place] [address] Discharge Summary 02/05/23 1045 MR#: [id number] Acct: [id number] Name: EMILY LOPEZ Rep #:[id number] : 1950 72 From: Hari Iniguez DO PCP: Dr. Rober Rubio MD Status:ADM I N Location: [place] [address] Providers Date of Admission: 01/31/23 Primary Care Physician: Dr. Rober Rubio MD Reason For Visit: BRONCHITIS, BRONCHOSPASM Diagnosis Discharge Diagnosis (1) Influenza A: Status: Acute Code(s): J10.1 - Influenza due to other identified influenza virus with other respiratorymanifestations (2) COPD exacerbation: Status: Chronic Code(s): J44.1 - Chronic obstructive pulmonary disease with (acute) exacerbation Plan 1. Influenza A infection with suspected COPD exacerbation * Positive for influenza A on admit. * Chest x-ray showed mild increased markings at lung bases, mild degree of vascular congestion. Patient with mild hypoxia on admit requiring 2 to 3 L nasal cannula. Denies history of COPD but uses a Trelegy inhaler at home and does have a history of tobacco use disorder. Symptoms appear consistent with COPD exacerbation secondary to flu infection. COVID-negative, urine antigens negative. Sputum culture with no growth. * Tamiflu. Azithromycin discontinued on 02/02. Incentive spirometer, Mucinex as needed. Patient weaned to room air at rest. Will need O2 ambulatory testing prior to discharge. 2. New onset Afib with RVR * Noted on telemetry on morning of 02/02. EKG showed A-fib with RVR, rate in the 140s. Patient asymptomatic. No previous history of A-fib. * Patient started on Eliquis 5 mg twice daily, Lopressor 25 mg twice daily, IV Lopressor 5 mg every 6 hours as needed. Echo ordered. * Developed Afib w RVR on the . Received bolus of IV diltiazem and diltiazem gtt. since changed over to metoprolol 50 mg twice daily. * Monitored overnight, had some tachycardia, but overall improved. Chronic medical conditions: ? Hypertension: Continue home amlodipine and lisinopril. ? Daily alcohol use: Drinks 3 glasses of Chardonnay daily. No problems with withdrawal in the past. Has not triggered CIWA since admission, okay to continue monitoring. DVT prophylaxis: Lovenox CODE STATUS: Full code, verified Expected disposition: pending echocardiogram. Medications at Discharge Home Medications albuterol sulfate 90 mcg/actuation aerosol inhaler 2 puff inhalation Q4H PRN PRNWheezing 03/08/20 amlodipine 10 mg tablet 10 mg PO DAILY 03/08/20 aspirin 81 mg tablet,delayed release 81 mg PO DAILY@0800 03/08/20 atorvastatin 40 mg tablet 40 mg PO QHS 03/08/20 lisinopril 40 mg tablet 40 mg PO DAILY 03/08/20 vitamins A,C,V-zctn-gfsrtl 2,148 mcg-113 mg-45 mg-17.4 mg tablet 1 ea PO DAILY 03/08/20 fluticasone fur. 100 mcg-umeclid 62.5 mcg-vilant 25 mcg inhalat.powder (Trelegy Ellipta) 1 inh inhalation Q24H 01/31/23 metformin 500 mg tablet 500 mg PO DAILY 01/31/23 apixaban 5 mg tablet (Eliquis) 5 mg PO BID #60 tabs 02/05/23 metoprolol tartrate 50 mg tablet 50 mg PO BID #60 tabs 02/05/23 oseltamivir 30 mg capsule 30 mg PO BID #1 cap 02/05/23 Hospital Course Operations None Procedures None Summary of Care Provided Minutes Spent on Discharge: 32 Hospital Course: Pt developed influenza A. She developed afib w RVR. Required diltiazem bolus andgtt. Remained in afib, HR improved with metoprolol 50 BID. Anticoagulated with apixaban. Weight / BMI Weight Weight: 84.8 kg Body Mass Index (BMI) 35.3 ABG / Lab / Microbiology Data 02/01/23 07:24 02/04/23 05:45 Laboratory: Laboratory Results - last 24 hr 02/04/23 10:43: POC Glucose 215 H 02/04/23 16:12: POC Glucose 207 H 02/04/23 21:57: POC Glucose 166 H 02/05/23 06:27: POC Glucose 163 H Microbiology: Microbiology 01/31/23 20:40 Sputum, Expectorated/Coughed Gram Stain - Final 01/31/23 20:40 Sputum, Expectorated/Coughed Respiratory Culture - Final 01/31/23 19:19 Mucosa - Nasopharyngeal Respiratory Panel (PCR) - Final Influenza A (Subtype H1) 01/31/23 18:24 Urine, Clean Catch Legionella Antigen - Final 01/31/23 18:24 Urine, Clean Catch Streptococcus pneumoniae Antigen (M - Final 01/31/23 14:06 Nasal Secretion SARS-CoV-2 & FLU Antigen (Rapid) - Final D/C Instructions Discharge Diet: No restrictions Meaningful Use Info Meaningful Use Diagnoses (Choose all that apply): None applicable Discharge Plan Admission Admit Date/Time: 01/31/23 17:17 Primary Reason for Your Visit: influenza. atrial fibrillation with RVR. Attending Provider: Hari Iniguez Primary Care Provider: Rober Rubio Consulting Providers: Meng Wells; Maurizio Wells Instructions Patient Instructions: AFib Preventing Stroke, AFib Additional Instructions / Restrictions: You developed atrial fibrillation while you were here. You were treated with medication to control your heart rate. You will need to be blood thinners to prevent a stroke. Please follow up with cardiology as outpatient. Discharge Orders/Prescriptions Prescriptions: New Eliquis 5 mg Tablet 5 mg PO BID Qty: 60 0RF metoprolol tartrate 50 mg Tablet 50 mg PO BID Qty: 60 0RF oseltamivir 30 mg Capsule 30 mg PO BID Qty: 1 0RF Continued atorvastatin 40 MG tablet 40 mg PO QHS aspirin 81 MG tablet 81 mg PO DAILY@0800 amlodipine 10 MG tablet 10 mg PO DAILY albuterol sulfate 8.5 GM HFA aerosol inhaler 2 puff INHALATION Q4H PRN PRN (Reason: Wheezing) Patient Comments: TAKE 2 PUFFS BY MOUTH EVERY 4 HOURS NEEDED lisinopril 40 MG tablet 40 mg PO DAILY vitamins A,C,D-skzc-jibacp 1 EACH tablet 1 ea PO DAILY Trelegy Ellipta 100-62.5-25 mcg blister with device 1 inh INHALATION Q24H Patient Comments: INHALE 1 PUFF INSTRUCTED ONCE DAILY. Held metformin 500 mg tablet 500 mg PO DAILY Hold Instructions: Resume on 02/10/23. Patient Comments: TAKE 1 TABLET BY MOUTH EVERY DAY WITH BREAKFAST Referrals / Follow Up: [facility] [Provider Group] - Within 1 Month Rober Rubio MD [Primary Care Provider] - Within 2 Weeks Disposition Disposition (needs filled in before D/C Order can be placed): Home, Self Care Charges/Coding Visit Charges Inpatient E&M: 10330 Disch Hosp >30min 12/20/23 1053 <Electronically signed by Hari Iniguez DO> Cosigner Signature (if applicable): CC: Dr. Hari Iniguez DO; Dr. Rober Rubio MD~ Signed [facility] Work Phone: 1(805) 803-750212-20-2023 [facility] Medical Records Department [address] [place] [address] Discharge Summary 02/05/23 1045 MR#: [id number] Acct: [id number] Name: EMILY LOPEZ Rep #: [id number] : 1950 72 From: Hari Iniguez DO PCP: Dr. Rober Rubio MD Status:ADM IN Location: [place] [address] Providers Date of Admission: 01/31/23 Primary Care Physician: Dr. Rober Rubio MD Reason For Visit: BRONCHITIS, BRONCHOSPASM Diagnosis Discharge Diagnosis (1) Influenza A: Status: Acute Code(s): J10.1 - Influenza due to other identified influenza virus with other respiratory manifestations (2) COPD exacerbation: Status: Chronic Code(s): J44.1 - Chronic obstructive pulmonary disease with (acute) exacerbation Plan 1. Influenza A infection with suspected COPD exacerbation * Positive for influenza A on admit. * Chest x-ray showed mild increased markings at lung bases, mild degree of vascular congestion. Patient with mild hypoxia on admit requiring 2 to 3 L nasal cannula. Denies history of COPD but uses a Trelegy inhaler at home and does have a history of tobacco use disorder. Symptoms appear consistent with COPD exacerbation secondary to flu infection. COVID-negative, urine antigens negative. Sputum culture with no growth. * Tamiflu. Azithromycin discontinued on 02/02. Incentive spirometer, Mucinex as needed. Patient weaned to room air at rest. Will need O2 ambulatory testing prior to discharge. 2. New onset Afib with RVR * Noted on telemetry on morning of 02/02. EKG showed A-fib with RVR, rate in the 140s. Patient asymptomatic. No previous history of A-fib. * Patient started on Eliquis 5 mg twice daily, Lopressor 25 mg twice daily, IV Lopressor 5 mg every 6 hours as needed. Echo ordered. * Developed Afib w RVR on the . Received bolus of IV diltiazem and diltiazem gtt. since changed over to metoprolol 50 mg twice daily. * Monitored overnight, had some tachycardia, but overall improved. Chronic medical conditions: ??? Hypertension: Continue home amlodipine and lisinopril. ??? Daily alcohol use: Drinks 3 glasses of Chardonnay daily. No problems with withdrawal in the past. Has not triggered CIWA since admission, okay to continue monitoring. DVT prophylaxis: Lovenox CODE STATUS: Full code, verified Expected disposition: pending echocardiogram. Medications at Discharge Home Medications albuterol sulfate 90 mcg/actuation aerosol inhaler 2 puff inhalation Q4H PRN PRN Wheezing 03/08/20 amlodipine 10 mg tablet 10 mg PO DAILY 03/08/20 aspirin 81 mg tablet,delayed release 81 mg PO DAILY@0800 03/08/20 atorvastatin 40 mg tablet 40 mg PO QHS 03/08/20 lisinopril 40 mg tablet 40 mg PO DAILY 03/08/20 vitamins A,C,N-ezpp-kwcbnc 2,148 mcg-113 mg-45 mg-17.4 mg tablet 1 ea PO DAILY 03/08/20 fluticasone fur. 100 mcg-umeclid 62.5 mcg-vilant 25 mcg inhalat.powder (Trelegy Ellipta) 1 inh inhalation Q24H 01/31/23 metformin 500 mg tablet 500 mg PO DAILY 01/31/23 apixaban 5 mg tablet (Eliquis) 5 mg PO BID #60 tabs 02/05/23 metoprolol tartrate 50 mg tablet 50 mg PO BID #60 tabs 02/05/23 oseltamivir 30 mg capsule 30 mg PO BID #1 cap 02/05/23 Hospital Course Operations None Procedures None Summary of Care Provided Minutes Spent on Discharge: 32 Hospital Course: Pt developed influenza A. She developed afib w RVR. Required diltiazem bolus and gtt. Remained in afib, HR improved with metoprolol 50 BID. Anticoagulated with apixaban. Weight / BMI Weight Weight: 84.8 kg Body Mass Index (BMI) 35.3 ABG / Lab / Microbiology Data 02/01/23 07:24 02/04/23 05:45 Laboratory: Laboratory Results - last 24 hr 02/04/23 10:43: POC Glucose 215 H 02/04/23 16:12: POC Glucose 207 H 02/04/23 21:57: POC Glucose 166 H 02/05/23 06:27: POC Glucose 163 H Microbiology: Microbiology 01/31/23 20:40 Sputum, Expectorated/Coughed Gram Stain - Final 01/31/23 20:40 Sputum, Expectorated/Coughed Respiratory Culture - Final 01/31/23 19:19 Mucosa - Nasopharyngeal Respiratory Panel (PCR) - Final Influenza A (Subtype H1) 01/31/23 18:24 Urine, Clean Catch Legionella Antigen - Final 01/31/23 18:24 Urine, Clean Catch Streptococcus pneumoniae Antigen (M - Final 01/31/23 14:06 Nasal Secretion SARS-CoV-2 FLU Antigen (Rapid) - Final D/C Instructions Discharge Diet: No restrictions Meaningful Use Info Meaningful Use Diagnoses (Choose all that apply): None applicable Discharge Plan Admission Admit Date/Time: 01/31/23 17:17 Primary Reason for Your Visit: influenza. atrial fibrillation with RVR. Attending Provider: Hari Iniguez Primary Care Provider: Rober Rubio Consulting Providers: Meng Wells Alexander Instructions Patient Instructions: AFib Preventing Stroke, AFib Additional Instructions / Restrictions: You developed atrial fibrillation while you were (more content not included)... [facility]12-20-2023 Progress note Author Hari Iniguez [facility] February 05, 2023 10:45am Note Date/Time February 05, 2023 8:57am [facility] Medical Records Department [address] [place] [address] Progress Note - Hospitalist 02/05/23 0856 MR#: [id number] Acct: [id number] Name: EMILY LOPEZ Rep #:[id number] : 1950 72 From: Hari Iniguez DO PCP: Dr. Rober Rubio MD Status:ADM I N Location: [place] [address] Subjective Subjective Feels well. No events overnight. Objective Data Objective Data Vital Signs: Vital Signs Temp Pulse Resp BP Pulse Ox O2 Del Method O2 Flow Rate 37.0 C 112 H 18 139/97 H 94 Room Air 2 02/05/23 08:32 02/05/23 08:43 02/05/23 08:32 02/05/23 08:32 02/05/23 08:32 02/05/23 08:32 02/05/23 06:00 Oxygen Flow Rate (L/min) 2 Oxygen Delivery Method Room Air Weight: 84.8 kg Body Mass Index (BMI) 35.3 Intake & Output: Intake and Output for Last 24 Hours 02/03/23 02/04/23 02/05/23 23:59 23:59 23:59 Intake Total 845.00 / 845.00 767.92 / 767.92 Balance 845.00 / 845.00 767.92 / 767.92 Lab / Micro Data 02/01/23 07:24 02/04/23 05:45 Labs: Laboratory Results - last 24 hr 02/04/23 10:43: POC Glucose 215 H 02/04/23 16:12: POC Glucose 207 H 02/04/23 21:57: POC Glucose 166 H 02/05/23 06:27: POC Glucose 163 H Micro: Microbiology 01/31/23 20:40 Sputum, Expectorated/Coughed Gram Stain - Final 01/31/23 20:40 Sputum, Expectorated/Coughed Respiratory Culture - Final 01/31/23 19:19 Mucosa - Nasopharyngeal Respiratory Panel (PCR) - Final Influenza A (Subtype H1) 01/31/23 18:24 Urine, Clean Catch Legionella Antigen - Final 01/31/23 18:24 Urine, Clean Catch Streptococcus pneumoniae Antigen (M - Final 01/31/23 14:06 Nasal Secretion SARS-CoV-2 & FLU Antigen (Rapid) - Final Physical Exam Const alert and no apparent distress Resp normal respiratory effort, no retractions, no use of accessory muscles and clearto auscultation bilaterally Cardio regular rate, regular rhythm, S1 normal heart sound and S2 normal heart sound GI normal to inspection, nondistended, normoactive bowel sounds, soft to palpation,non-tender and non-distended Psych affect normal Assessment & Plan Assessment/Plan (1) Influenza A: (2) COPD exacerbation: PLAN: Plan 1. Influenza A infection with suspected COPD exacerbation * Positive for influenza A on admit. * Chest x-ray showed mild increased markings at lung bases, mild degree of vascular congestion. Patient with mild hypoxia on admit requiring 2 to 3 L nasal cannula. Denies history of COPD but uses a Trelegy inhaler at home and does have a history of tobacco use disorder. Symptoms appear consistent with COPD exacerbation secondary to flu infection. COVID-negative, urine antigens negative. Sputum culture with no growth. * Tamiflu. Azithromycin discontinued on 02/02. Incentive spirometer, Mucinex as needed. Patient weaned to room air at rest. Will need O2 ambulatory testing prior to discharge. 2. New onset Afib with RVR * Noted on telemetry on morning of 02/02. EKG showed A-fib with RVR, rate in the 140s. Patient asymptomatic. No previous history of A-fib. * Patient started on Eliquis 5 mg twice daily, Lopressor 25 mg twice daily, IV Lopressor 5 mg every 6 hours as needed. Echo ordered. * Developed Afib w RVR on the . Received bolus of IV diltiazem and diltiazem gtt. since changed over to metoprolol 50 mg twice daily. * Monitored overnight, had some tachycardia, but overall improved. Chronic medical conditions: ? Hypertension: Continue home amlodipine and lisinopril. ? Daily alcohol use: Drinks 3 glasses of Chardonnay daily. No problems with withdrawal in the past. Has not triggered CIWA since admission, okay to continue monitoring. DVT prophylaxis: Lovenox CODE STATUS: Full code, verified Expected disposition: pending echocardiogram. 02/05/23 1045 <Electronically signed by Hari Iniguez DO> Cosigner Signature (if applicable): CC: ~ Signed [facility] Work Phone: 1(179) 545-283812-19-2023 Progress note Author Hari Iniguez [facility] February 04, 2023 2:50pm Note Date/Time February 04, 2023 8:32am [facility] Medical Records Department [address] [place] [address] Progress Note - Hospitalist 02/04/23 0831 MR#: [id number] Acct: [id number] Name: EMILY LOPEZ Rep #:[id number] : 1950 72 From: Hari Iniguez DO PCP: Dr. Rober uRbio MD Status:ADM I N Location: [place] [address] Reason for Visit Reason for Visit: Diagnoses Influenza due to other identified influenza virus with other respiratory manifestations (01/31/23) Acute bronchitis, unspecified (01/31/23) Chronic obstructive pulmonary disease with (acute) exacerbation (01/31/23) Subjective Subjective Feels well. Developed afib RVR last night and was started on diltiazem bolus w gtt. Objective Data Objective Data Vital Signs: Vital Signs Temp Pulse Resp BP Pulse Ox O2 Del Method O2 Flow Rate 36.4 C L 94 19 H 122/63 H 94 Room Air 1 02/04/23 04:28 02/04/23 08:19 02/04/23 08:00 02/04/23 08:19 02/04/23 08:00 02/04/23 08:00 02/04/23 07:15 Oxygen Flow Rate (L/min) 1 Oxygen Delivery Method Room Air Weight: 84.8 kg Body Mass Index (BMI) 35.3 Intake & Output: Intake and Output for Last 24 Hours 02/02/23 02/03/23 02/04/23 23:59 23:59 23:59 Intake Total 995 / 995 845.00 / 845.00 131.25 / 131.25 Balance 995 / 995 845.00 / 845.00 131.25 / 131.25 Lab / Micro Data 02/01/23 07:24 02/04/23 05:45 Labs: Laboratory Results - last 24 hr 02/03/23 11:05: POC Glucose 265 H 02/03/23 16:48: POC Glucose 151 H 02/03/23 21:57: POC Glucose 162 H 02/04/23 05:45: Sodium 135 L, Potassium 4.1, Chloride 103, Carbon Dioxide 26.0, Anion Gap 6, BUN 16, Creatinine 0.68, Estim Creat Clear Calc 37.81, Est GFR (MDRD) Af Amer 109, Est GFR (MDRD) Non-Af 90, BUN/Creatinine Ratio 23.6 H, Glucose 214 H, Calcium 8.8 02/04/23 06:37: POC Glucose 203 H Micro: Microbiology 01/31/23 20:40 Sputum, Expectorated/Coughed Gram Stain - Final 01/31/23 20:40 Sputum, Expectorated/Coughed Respiratory Culture - Final 01/31/23 19:19 Mucosa - Nasopharyngeal Respiratory Panel (PCR) - Final Influenza A (Subtype H1) 01/31/23 18:24 Urine, Clean Catch Legionella Antigen - Final 01/31/23 18:24 Urine, Clean Catch Streptococcus pneumoniae Antigen (M - Final 01/31/23 14:06 Nasal Secretion SARS-CoV-2 & FLU Antigen (Rapid) - Final Radiography Diagnostic Testing: Radiology Impression Echocardiogram 02/02/23 11:25 Interpretation Summary The estimated ejection fraction is 60 %. Unable to assess diastolic dysfunction due to arrhythmia. Moderate mitral annular calcification. Mild diffuse mitral valve thickening. Mild focal aortic valve calcification. Normal LV systolic function Ordering Physician: Maurizio Wells Referring Physician: Rober Rubio Performed By: Antoinette Ladd, SANDRA, RVT Physical Exam Resp normal respiratory effort, no retractions, no use of accessory muscles and clearto auscultation bilaterally Cardio regular rate, regular rhythm, S1 normal heart sound and S2 normal heart sound GI normal to inspection, nondistended, normoactive bowel sounds and soft to palpation Neuro Sensorium / Orientation: awake and alert Assessment & Plan Assessment/Plan (1) Influenza A: (2) COPD exacerbation: PLAN: Plan 1. Influenza A infection with suspected COPD exacerbation * Positive for influenza A on admit. * Chest x-ray showed mild increased markings at lung bases, mild degree of vascular congestion. Patient with mild hypoxia on admit requiring 2 to 3 L nasal cannula. Denies history of COPD but uses a Trelegy inhaler at home and does have a history of tobacco use disorder. Symptoms appear consistent with COPD exacerbation secondary to flu infection. COVID-negative, urine antigens negative. Sputum culture with no growth. * Tamiflu. Azithromycin discontinued on 02/02. Incentive spirometer, Mucinex as needed. Patient weaned to room air at rest. Will need O2 ambulatory testing prior to discharge. 2. New onset Afib with RVR * Noted on telemetry on morning of 02/02. EKG showed A-fib with RVR, rate in the 140s. Patient asymptomatic. No previous history of A-fib. * Patient started on Eliquis 5 mg twice daily, Lopressor 25 mg twice daily, IV Lopressor 5 mg every 6 hours as needed. Echo ordered. * Developed Afib w RVR on the . Received bolus of IV diltiazem and diltiazem gtt. since changed over to metoprolol 50 mg twice daily. Chronic medical conditions: ? Hypertension: Continue home amlodipine and lisinopril. ? Daily alcohol use: Drinks 3 glasses of Chardonnay daily. No problems with withdrawal in the past. Has not triggered CIWA since admission, okay to continue monitoring. DVT prophylaxis: Lovenox CODE STATUS: Full code, verified Expected disposition: pending echocardiogram. Charges/Coding Visit Charges Inpatient E&M: 25654 Subs Hosp L2 02/04/23 1450 <Electronically signed by Hari Iniguez DO> Cosigner Signature (if applicable): CC: ~ Signed [facility] Work Phone: [phone]) 565-877012-18-2023 Progress note Author Hari Iniguez [facility] February 03, 2023 2:30pm Note Date/Time February 03, 2023 9:14am [facility] Medical Records Department [address] [place] [address] Progress Note - Hospitalist 02/03/23910 MR#: [id number] Acct: [id number] Name: EMILY LOPEZ Rep #:[id number] : 1950 72 From: Hari Iniguez DO PCP: Dr. Rober Rubio MD Status:ADM I N Location: [place] [address] Subjective Subjective Breathing well, still feels sick. Has been getting up without assistance to go tot the bathroom. Objective Data Objective Data Vital Signs: Vital Signs Temp Pulse Resp BP Pulse Ox O2 Del Method O2 Flow Rate 36.2 C L 82 18 128/74 H 93 Room Air 93 02/03/23 09:06 02/03/23 09:10 02/03/23 09:06 02/03/23 09:06 02/03/23 09:06 02/03/23 09:06 02/03/23 09:04 Oxygen Flow Rate (L/min) 93 Oxygen Delivery Method Room Air Weight: 84.822 kg Body Mass Index (BMI) 35.3 Intake & Output: Intake and Output for Last 24 Hours 02/01/23 02/02/23 02/03/23 23:59 23:59 23:59 Intake Total 880 / 880 995 / 995 Balance 880 / 880 995 / 995 Lab / Micro Data 02/01/23 07:24 02/01/23 07:24 Labs: Laboratory Results - last 24 hr 02/02/23 10:14: POC Glucose 235 H 02/02/23 16:15: POC Glucose 220 H 02/02/23 22:02: POC Glucose 145 H 02/03/23 06:30: POC Glucose 181 H Micro: Microbiology 01/31/23 20:40 Sputum, Expectorated/Coughed Gram Stain - Final 01/31/23 20:40 Sputum, Expectorated/Coughed Respiratory Culture - Final 01/31/23 19:19 Mucosa - Nasopharyngeal Respiratory Panel (PCR) - Final Influenza A (Subtype H1) 01/31/23 18:24 Urine, Clean Catch Legionella Antigen - Final 01/31/23 18:24 Urine, Clean Catch Streptococcus pneumoniae Antigen (M - Final 01/31/23 14:06 Nasal Secretion SARS-CoV-2 & FLU Antigen (Rapid) - Final Physical Exam Const alert and no apparent distress Resp normal respiratory effort, no retractions, no use of accessory muscles and clearto auscultation bilaterally Cardio regular rate, regular rhythm, S1 normal heart sound and S2 normal heart sound GI normal to inspection, nondistended, normoactive bowel sounds, soft to palpation,non-tender and non-distended Assessment & Plan Assessment/Plan (1) Influenza A: (2) COPD exacerbation: PLAN: Plan 1. Influenza A infection with suspected COPD exacerbation * Positive for influenza A on admit. * Chest x-ray showed mild increased markings at lung bases, mild degree of vascular congestion. Patient with mild hypoxia on admit requiring 2 to 3 L nasal cannula. Denies history of COPD but uses a Trelegy inhaler at home and does have a history of tobacco use disorder. Symptoms appear consistent with COPD exacerbation secondary to flu infection. COVID-negative, urine antigens negative. Sputum culture with no growth. * Tamiflu. Azithromycin discontinued on 02/02. Incentive spirometer, Mucinex as needed. Patient weaned to room air at rest. Will need O2 ambulatory testing prior to discharge. 2. New onset Afib with RVR * Noted on telemetry on morning of 02/02. EKG showed A-fib with RVR, rate in the 140s. Patient asymptomatic. No previous history of A-fib. * Patient started on Eliquis 5 mg twice daily, Lopressor 25 mg twice daily, IV Lopressor 5 mg every 6 hours as needed. Echo ordered. Chronic medical conditions: ? Hypertension: Continue home amlodipine and lisinopril. ? Daily alcohol use: Drinks 3 glasses of Chardonnay daily. No problems with withdrawal in the past. Has not triggered CIWA since admission, okay to continue monitoring. DVT prophylaxis: Lovenox CODE STATUS: Full code, verified Expected disposition: pending echocardiogram. Charges/Coding Visit Charges Inpatient E&M: 91739 Subs Hosp L2 02/03/23 1430 <Electronically signed by Hari Iniguez DO> Cosigner Signature (if applicable): CC: ~ Signed [facility] Work Phone: [phone]) 104-391112-17-2023 Progress note Author [facility] February 02, 2023 1:18pm Note Date/Time February 02, 2023 1:18pm [facility] Medical Records Department [address] [place] [address] Progress Note - Hospitalist 02/02/23 1311 MR#: [id number] Acct: [id number] Name: EMILY LOPEZ Rep #:[id number] : 1950 72 From: Maurizio don DO PCP: Dr. Rober Rubio MD Status:ADM I N Location: [place] [address] Reason for Visit Reason for Visit: Diagnoses Influenza due to other identified influenza virus with other respiratory manifestations (01/31/23) Acute bronchitis, unspecified (01/31/23) Chronic obstructive pulmonary disease with (acute) exacerbation (01/31/23) Subjective Subjective Patient seen at bedside this morning. Patient was sitting comfortably in bedside chair, conversing normally, no acute distress. She was satting in the low 90s on room air, no increased work of breathing noted. However, patient notes that she does continue to get fairly short of breath with exertion, similar to previous days. Patient notably was found to have A-fib with RVR thismorning that is new onset; she denies any palpitations or feeling that her heartis racing. Patient is overall concerned with her pneumonia, because she states she was in the hospital about 10 years ago with a very bad case of pneumonia that required a prolonged admission. No other acute concerns morning. Objective Data Objective Data Vital Signs: Vital Signs Temp Pulse Resp BP Pulse Ox O2 Del Method O2 Flow Rate 97.1 F L 137 H 16 131/82 H 95 Room Air 2 02/02/23 12:44 02/02/23 12:44 02/02/23 12:44 02/02/23 12:44 02/02/23 12:44 02/02/23 12:44 02/02/23 04:30 Oxygen Flow Rate (L/min) 2 Oxygen Delivery Method Room Air Weight: 84.822 kg Body Mass Index (BMI) 35.3 Intake & Output: Intake and Output for Last 24 Hours 01/31/23 02/01/23 02/02/23 23:59 23:59 23:59 Intake Total 880 / 880 420 / 420 Balance 880 / 880 420 / 420 Lab / Micro Data 02/01/23 07:24 02/01/23 07:24 Labs: Laboratory Results - last 24 hr 02/01/23 17:28: POC Glucose 261 H 02/01/23 22:37: POC Glucose 266 H 02/02/23 06:33: POC Glucose 249 H 02/02/23 10:14: POC Glucose 235 H Micro: Microbiology 01/31/23 20:40 Sputum, Expectorated/Coughed Gram Stain - Final 01/31/23 20:40 Sputum, Expectorated/Coughed Respiratory Culture - Preliminary Appears to be normal respiratory afsaneh. Further studies to follow. 01/31/23 19:19 Mucosa - Nasopharyngeal Respiratory Panel (PCR) - Final Influenza A (Subtype H1) 01/31/23 18:24 Urine, Clean Catch Legionella Antigen - Final 01/31/23 18:24 Urine, Clean Catch Streptococcus pneumoniae Antigen (M - Final 01/31/23 14:06 Nasal Secretion SARS-CoV-2 & FLU Antigen (Rapid) - Final Physical Exam Const alert, oriented x3 and no apparent distress Constitutional Narrative: Elderly female, obese, sitting comfortably in bedside chair, conversing normally, no acute distress. General Appearance: cooperative and comfortable HEENT normocephalic, head/scalp atraumatic, hearing grossly normal bilaterally, nasal mucous membranes and turbinates normal and moist oral mucous membranes Eyes PERRL, EOMs intact bilaterally and conjunctivae normal Neck full ROM, no lymphadenopathy and supple Lymph Lymphatic: no lymphadenopathy noted Chest inspection of chest normal Resp Resp Narrative: Decreased breath sounds bilaterally throughout, no wheezing or crackles noted. Satting in low 90s on room air, no increased work of breathing noted. Cardio no murmurs and peripheral pulses 2+ throughout Cardio Narrative: A-fib with RVR. GI normal to inspection, nondistended, normoactive bowel sounds, soft to palpation,non-tender and non-distended Back/Spine normal ROM Extremity normal to inspection, full ROM and no pedal edema Skin no rashes or lesions noted Neuro moves all extremities and no focal motor deficits Speech: speech normal Psych mental status grossly normal Assessment & Plan Assessment/Plan (1) Influenza A: (2) COPD exacerbation: PLAN: Plan Patient is a 72-year-old female who presented to [facility] ED on 01/31/23 with worsening cough and shortness of breath. 1. Influenza A infection with suspected COPD exacerbation Positive for influenza A on admit. Chest x-ray showed mild increased markings at lung bases, mild degree of vascular congestion. Patient with mild hypoxia onadmit requiring 2 to 3 L nasal cannula. Denies history of COPD but uses a Trelegy inhaler at home and does have a history of tobacco use disorder. Symptoms appear consistent with COPD exacerbation secondary to flu infection. COVID-negative, urine antigens negative. Sputum culture with no growth. ? Continue IV steroids, scheduled DuoNebs, Tamiflu. Azithromycin discontinued on 02/02. Incentive spirometer, Mucinex as needed. Patient weaned to room air at rest. Will need O2 ambulatory testing prior to discharge. 2. New onset Afib with RVR Noted on telemetry on morning of 02/02. EKG showed A-fib with RVR, rate in the 140s. Patient asymptomatic. No previous history of A-fib. ? Patient started on Eliquis 5 mg twice daily, Lopressor 25 mg twice daily, IV Lopressor 5 mg every 6 hours as needed. Echo ordered. Chronic medical conditions: ? Hypertension: Continue home amlodipine and lisinopril. ? Daily alcohol use: Drinks 3 glasses of Chardonnay daily. No problems with withdrawal in the past. Has not triggered CIWA since admission, okay to continue monitoring. DVT prophylaxis: Lovenox CODE STATUS: Full code, verified Expected disposition: Home, 1-2 days Total clinical time spent by myself addressing the patient's medical issues, reviewing all the data, and collaborating with patient's care team: 35 minutes. Charges/Coding Visit Charges Inpatient E&M: 95993 Subs Hosp L2 02/02/23 1318 <Electronically signed by Maurizio Wells DO> Cosigner Signature (if applicable): CC: ~ Signed [facility] Work Phone: [phone]) 670-928712-16-2023 Progress note Author Maurizio [facility] February 01, 2023 3:30pm Note Date/Time February 01, 2023 3:26pm [facility] Medical Records Department [address] [place] [address] Progress Note - Hospitalist 02/01/23 1521 MR#: [id number] Acct: [id number] Name: EMILY LOPEZ Rep #:[id number] : 1950 72 From: Maurizio don DO PCP: Dr. Rober Rubio MD Status:ADM I N Location: [place] [address] Reason for Visit Reason for Visit: Diagnoses Acute bronchitis, unspecified (01/31/23) Subjective Subjective Patient seen at bedside this morning. Patient was sitting comfortably in bedside chair, receiving a DuoNeb treatment during my interview. Patient statedthat she felt improved this morning at comparison to yesterday. She denied any significant shortness of breath at rest. Satting well on room air currently with no increased work of breathing noted. Does continue to have some dyspnea with exertion. States her cough has been less productive today. Denies any fevers or chills. No other acute concerns this morning. Objective Data Objective Data Vital Signs: Vital Signs Temp Pulse Resp BP Pulse Ox O2 Del Method 97 F L 115 H 16 140/65 H 93 Room Air 02/01/23 12:59 02/01/23 12:59 02/01/23 12:59 02/01/23 12:59 02/01/23 12:59 02/01/23 12:59 Oxygen Delivery Method Room Air Weight: 84.822 kg Body Mass Index (BMI) 35.3 Intake & Output: Intake and Output for Last 24 Hours 01/30/23 01/31/23 02/01/23 23:59 23:59 23:59 Intake Total 400 / 400 Balance 400 / 400 Lab / Micro Data 02/01/23 07:24 02/01/23 07:24 Labs: Laboratory Results - last 24 hr 01/31/23 14:00: Troponin I High Sens 8, B-Natriuretic Peptide 78.1 01/31/23 17:48: POC Glucose 167 H 01/31/23 22:47: POC Glucose 261 H 02/01/23 06:35: POC Glucose 303 H 02/01/23 07:24: WBC 7.3, RBC 4.43, Hgb 14.6, Hct 43.2, MCV 97.5, MCH 33.0 H, MCHC 33.8, RDW Std Deviation 44.1 H, RDW Coeff of Rashaad 12.4, Plt Count 226, MPV 9.9, Immature Gran % (Auto) 0.700, Neut % (Auto) 89.1 H, Lymph % (Auto) 5.8 L, [place] % (Auto) 4.1, Eos % (Auto) 0.0, Baso % (Auto) 0.3, Absolute Neuts (auto) 6.5, Absolute Lymphs (auto) 0.42 L, Nucleated RBC % 0, Differential Comment SCANNED, Sodium 135 L, Potassium 3.2 L, Chloride 99, Carbon Dioxide 28.0, Anion Gap 8, BUN 14, Creatinine 0.76, Estim Creat Clear Calc 37.81, Est GFR (MDRD) Af Amer 96, Est GFR (MDRD) Non-Af 79, BUN/Creatinine Ratio 18.4, Glucose 295 H, Calcium 9.6, TSH 0.39 02/01/23 12:16: POC Glucose 346 H Micro: Microbiology 01/31/23 20:40 Sputum, Expectorated/Coughed Gram Stain - Final 01/31/23 19:19 Mucosa - Nasopharyngeal Respiratory Panel (PCR) - Final Influenza A (Subtype H1) 01/31/23 18:24 Urine, Clean Catch Legionella Antigen - Final 01/31/23 18:24 Urine, Clean Catch Streptococcus pneumoniae Antigen (M - Final 01/31/23 14:06 Nasal Secretion SARS-CoV-2 & FLU Antigen (Rapid) - Final Physical Exam Const alert, oriented x3 and no apparent distress Constitutional Narrative: Pleasant elderly female, obese, sitting comfortably in bedside chair, conversingnormally, no acute distress. General Appearance: cooperative and comfortable HEENT normocephalic, head/scalp atraumatic, hearing grossly normal bilaterally, nasal mucous membranes and turbinates normal and moist oral mucous membranes Eyes PERRL, EOMs intact bilaterally and conjunctivae normal Neck full ROM, no lymphadenopathy and supple Lymph Lymphatic: no lymphadenopathy noted Chest inspection of chest normal Resp Resp Narrative: Decreased breath sounds bilaterally throughout, no wheezing or crackles noted. Satting in low 90s on room air, no increased work of breathing noted. Cardio regular rate, regular rhythm, no murmurs and peripheral pulses 2+ throughout GI normal to inspection, nondistended, normoactive bowel sounds, soft to palpation,non-tender and non-distended Back/Spine normal ROM Extremity normal to inspection, full ROM and no pedal edema Skin no rashes or lesions noted Neuro moves all extremities and no focal motor deficits Speech: speech normal Psych mental status grossly normal Assessment & Plan Assessment/Plan (1) Influenza A: (2) COPD exacerbation: PLAN: Plan Patient is a 72-year-old female who presented to [facility] ED on 01/31/23 with worsening cough and shortness of breath. 1. Influenza A infection with suspected COPD exacerbation Positive for influenza A on admit. Chest x-ray showed mild increased markings at lung bases, mild degree of vascular congestion. Patient with mild hypoxia onadmit requiring 2 to 3 L nasal cannula. Denies history of COPD but uses a Trelegy inhaler at home and does have a history of tobacco use disorder. Symptoms appear consistent with COPD exacerbation secondary to flu infection. COVID-negative, urine antigens negative. ? Continue IV steroids, scheduled DuoNebs, Tamiflu, azithromycin. Sputum culture pending. Incentive spirometer, Mucinex as needed. Patient weaned to room air at rest. Will need O2 ambulatory testing prior to discharge. Chronic medical conditions: ? Hypertension: Continue home amlodipine and lisinopril. ? Daily alcohol use: Drinks 3 glasses of Chardonnay daily. No problems with withdrawal in the past. Has not triggered CIWA since admission, okay to continue monitoring. DVT prophylaxis: Lovenox CODE STATUS: Full code, verified Expected disposition: Home, tomorrow Total clinical time spent by myself addressing the patient's medical issues, reviewing all the data, and collaborating with patient's care team: 35 minutes. Charges/Coding Visit Charges Inpatient E&M: 49445 Subs Hosp L2 02/01/23 1530 <Electronically signed by Maurizio Wells DO> Cosigner Signature (if applicable): CC: ~ Signed [facility] Work Phone: [phone] Progress note Author [facility] February 01, 2023 4:47am Note Date/Time February 01, 2023 4:47am [facility] Medical Records Department [address] [place] [address] Progress Note - Hospitalist 02/01/23446 MR#: [id number] Acct: [id number] Name: EMILY LOPEZ Rep #:[id number] : 1950 72 From: Karen Mendez MD PCP: Dr. Rober Rubio MD Status:ADM I N Location: [place] [address] Hospitalist Note Staff reported respiratory panel results per laboratory with positive influenza A H1. Will initiate Tamiflu. 02/01/23446 <Electronically signed by Karen Mendez MD> Cosigner Signature (if applicable): CC: ~ Signed [facility] Work Phone: [phone] History and physical note Author Deborah Barron [facility] January 31, 2023 5:30pm Note Date/Time January 31, 2023 5:21pm [facility] Medical Records Department [address] [place] [address] H&P Exam - Hospitalist 01/31/231716 MR#: [id number] Acct: [id number] Name: EMILY LOPEZ Rep #:[id number] : 1950 72 From: Deborah Barron MD PCP: Dr. Rober Rubio MD Status:ADM I N Location: [place] [address] HPI - General General Date of Admission: 01/31/23 Date of Service: 01/31/23 Chief Complaint: Increasing SOB HPI Narrative EMILY LOPEZ, is a 72 F with hypertension, former tobacco use, O2 nightly, and insomnia who presents to [facility] 01/31/2023 due to increasing shortness of breath and productive cough. Reportedly started coughing and got congested on Friday and had a fever at that time, fever has resolved but she has had increased shortness of breath and cough with yellow andbrown sputum. In ED patient with significant wheezing and when ambulated with decrease sats to 85% on room air, at rest was 90 to 91% on room air. Patient denies any lung issues however uses a trilogy inhaler and oxygen at bedtime but does not note any specific underlying diagnoses. At present feels slightly better than she did on arrival she got steroids and nebs however still feels wheezy and short of breath. Patient agreeable for admission. No fever in several days, reports that she had a sick contact 3 days before she became ill but does not know what that person had. Denies any other focal complaints. Wasa former tobacco user quit in 2010, does have difficulty with sleep so drinks 3 glasses of Chardonnay nightly to help her sleep, denies any history of withdrawal or problems if she does not drink aside from does not being able to sleep very well. No chest pain, no swelling. [facility] Medical History (Updated 01/31/23 @ 17:[address] Deborah Barron MD) COPD (chronic obstructive pulmonary disease) COVID Diabetes HTN (hypertension) Hypercholesteremia Legally blind Obesity Pneumonia Home Medications albuterol sulfate 90 mcg/actuation aerosol inhaler 2 puff inhalation Q4H PRN PRNWheezing 03/08/20 [History Last Taken Unknown] amlodipine 10 mg tablet 10 mg PO DAILY 03/08/20 [History Last Taken Unknown] aspirin 81 mg tablet,delayed release 81 mg PO DAILY@0800 03/08/20 [History Last Taken Unknown] atorvastatin 40 mg tablet 40 mg PO QHS 03/08/20 [History Last Taken Unknown] lisinopril 40 mg tablet 40 mg PO DAILY 03/08/20 [History Last Taken Unknown] vitamins A,C,T-utud-mopdmv 2,148 mcg-113 mg-45 mg-17.4 mg tablet 1 ea PO DAILY 03/08/20 [History Last Taken Unknown] fluticasone fur. 100 mcg-umeclid 62.5 mcg-vilant 25 mcg inhalat.powder (Trelegy Ellipta) 1 inh inhalation Q24H 01/31/23 [History Last Taken Unknown] metformin 500 mg tablet 500 mg PO DAILY 01/31/23 [History Last Taken Unknown] Allergy/AdvReac Type Severity Reaction Status Date / Time venom-honey bee Allergy Severe Swelling Verified 01/31/23 17:12 codeine Allergy Itching Verified 03/08/20 19:38 Penicillins [PCN] Allergy Itching Verified 03/08/20 19:38 Sulfa (Sulfonamide Allergy Itching Verified 03/08/20 19:38 Antibiotics) Tetanus Vaccines and Toxoid Allergy NEEDS Verified 03/08/20 19:38 FOLLOW-UP Family History (Updated 01/31/23 @ 17:00 by Chinyere Melchor) Mother Heart failure Father Heart failure Social History Smoking Status: Former smoker ROS ROS Narrative General: Initially fevers early in the week but these have resolved HENT: Denies headache, some nasal congestion, denies sore throat EYES: Denies changes in vision Resp: Shortness of breath on exertion primarily with productive cough Cardiac: Denies chest pain GI: Denies abdominal pain, denies changes in bowel, denies nausea/vomiting : Denies changes in urination Extremity: Denies swelling MSK: Denies weakness Neuro: Denies any numbness/tingling Heme: Denies any bleeding or bruising Skin: Denies rashes Psychiatric: No complaints voiced Vital Signs Vital Signs Vital Signs: 01/31/23 13:26 01/31/23 13:49 01/31/23 14:18 Temperature 99.3 F H Temperature Source Temporal Pulse Rate 120 H 120 H Respiratory Rate 22 H 20 H Respiratory Effort Short of Breath Respiratory Depth Normal Respiratory Pattern Normal Blood Pressure 140/79 H Blood Pressure Mean 99 Blood Pressure Source Blood Pressure Position Blood Pressure Location Pulse Ox 94 Oxygen Delivery Method Room Air Room Air 01/31/23 15:20 01/31/23 16:30 01/31/23 17:04 Temperature 97.8 F 99.6 F H Temperature Source Oral Pulse Rate 18 L 113 H 107 H Respiratory Rate 121 H 19 H 20 H Respiratory Effort Respiratory Depth Respiratory Pattern Blood Pressure 100/73 115/77 113/91 H Blood Pressure Mean 82 89 98 Blood Pressure Source Monitor Blood Pressure Position Sitting Blood Pressure Location Left Arm Pulse Ox 95 94 96 Oxygen Delivery Method Room Air Room Air Weight Weight: 84.822 kg Body Mass Index (BMI) 35.3 Physical Exam Narrative General: Alert, oriented, no apparent distress HEENT: Atraumatic, normocephalic Eyes: Anicteric, normal conjunctiva, extraocular movements grossly intact Neck: Supple Respiratory: Increased effort with diffuse wheezing Cardiovascular: Slightly tachycardic, sinus rhythm GI: Soft, nontender, nondistended Extremities: No edema Musculoskeletal: Moving all extremities Neuro: No overt focal neurological deficits Skin: No rashes appreciated Psych: Cooperative Results Lab / Micro Data 01/31/23 14:00 01/31/23 14:00 Labs: Laboratory Results - last 24 hr 01/31/23 14:00: WBC 9.6, RBC 4.55, Hgb 15.1 H, Hct 43.8, MCV 96.3, MCH 33.2 H, MCHC 34.5, RDW Std Deviation 44.1 H, RDW Coeff of Rashaad 12.4, Plt Count 203, MPV 9.4, Immature Gran % (Auto) 0.300, Neut % (Auto) 77.4 H, Lymph % (Auto) 10.2 L, [place] % (Auto) 11.0 H, Eos % (Auto) 0.7, Baso % (Auto) 0.4, Absolute Neuts (auto) 7.4, Absolute Lymphs (auto) 0.98, Nucleated RBC % 0, Sodium 135 L, Potassium 3.7, Chloride 98, Carbon Dioxide 33.0 H, Anion Gap 4 L, BUN 9, Creatinine 0.68, Estim Creat Clear Calc 37.81, Est GFR (MDRD) Af Amer 109, Est GFR (MDRD) Non-Af 90, BUN/Creatinine Ratio 13.3, Glucose 170 H, Calcium 9.8, Troponin I High Sens 8, B-Natriuretic Peptide 78.1 Micro: Microbiology 01/31/23 14:06 Nasal Secretion SARS-CoV-2 & FLU Antigen (Rapid) - Final Imagaing Radiology Impression Chest X-Ray 01/31/23 14:17 IMPRESSION: Mass or congestion. Mild increased markings at the lung bases suggestive of linear atelectasis and/or scarring. Electronically Signed: Arcadio Perrin MD at 14:37 EST , ADDENDUM: 01/31/23 1509 IMPRESSION: Vascular congestion. Electronically Signed: Arcadio Perrin MD at 15:02 EST , Assessment & Plan Assessment/Plan (1) Acute bronchitis with bronchospasm: PLAN: Plan # Hypoxia suspect acute on chronic secondary to likely underlying COPD -Patient poor historian as she had reported no lung issues but uses a trelegy inhaler and 2 L of O2 at bedtime -Suspect given her Trelegy inhaler use and history of tobacco use that she may have underlying COPD -Symptoms consistent with a COPD exacerbation -No elevated white blood cell count, has not had any further fevers and no infiltrate on x-ray so do not think she needs treated as pneumonia but will treat as acute exacerbation of COPD -Steroids -Nebs -Azithromycin -COVID and flu negative will check viral panel will also check sputum culture if patient able to produce sample -Incentive spirometer -Mucinex # Hypertension -Continue amlodipine and lisinopril -Patient slightly tachycardic but this is sinus tach and suspect it is all compensatory so we will treat underlying illness # Daily alcohol use -Denies problems with withdrawal in the past but does drink 3 glasses of Chardonnay daily so will add on CIWA coverage in the event patient does begin to withdraw #DVT ppx: Lovenox subcu Deborah Barron MD Time spent in the patient's overall evaluation,decision-making process, review of diagnostic data, adjustment of management, discussion with other providers, nursing nursing and ancillary staff involved in patient's care documentation, 55 minutes 01/31/23 1730 <Electronically signed by Deborah Barron MD> Cosigner Signature (if applicable): CC: Dr. Deborah Barron MD; Dr. Rober Rubio MD~ Signed [facility] Work Phone: 1(158) 681-774412-15-2023 Discharge summary Author Stevo Alcantara [facility] January 31, 2023 5:02pm Note Date/Time January 31, 2023 4:00pm [facility] Medical Records Department [address] [place] [address] Emergency Department Summary 01/31/23 MR#: [id number] Acct: [id number] Name: EMILY LOPEZ Rep #:[id number] 8 : 1950 72 From: Stevo Conklin PCP: Dr. Rober Rubio MD Status:ADM I N Location: [address] History of Present Illness Chief Complaint: Shortness of Breath Informant: patient Narrative Narrative: 72-year-old female presenting to the emergency room with shortness of breath andwheezing. Patient states that on Friday she developed cough and wheezing and progressively battled a week. She notes an associated fever which she states went away around Friday evening. She notes that she continues to Wheeze and bring up phlegm. She states that she quit smoking in 2010. She takes Trelegy and has a rescue inhaler. She states she has oxygen but wears it at night and it is just located in her bedroom. She states that she does not wear CPAP.. Patient notes that she has dyspnea with exertion to the bathroom. [facility] Medical History COVID Diabetes HTN (hypertension) Hypercholesteremia Obesity Pneumonia Home Medications albuterol sulfate 90 mcg/actuation aerosol inhaler 2 puff inhalation Q4H PRN PRNWheezing 03/08/20 [History Last Taken Unknown] amlodipine 10 mg tablet 10 mg PO DAILY 03/08/20 [History Last Taken Unknown] aspirin 81 mg tablet,delayed release 81 mg PO DAILY@0800 03/08/20 [History Last Taken Unknown] atorvastatin 40 mg tablet 40 mg PO QHS 03/08/20 [History Last Taken Unknown] lisinopril 40 mg tablet 40 mg PO DAILY 03/08/20 [History Last Taken Unknown] vitamins A,C,B-jfmy-thtktz 2,148 mcg-113 mg-45 mg-17.4 mg tablet 1 ea PO DAILY 03/08/20 [History Last Taken Unknown] fluticasone fur. 100 mcg-umeclid 62.5 mcg-vilant 25 mcg inhalat.powder (Trelegy Ellipta) 1 inh inhalation Q24H 01/31/23 [History Last Taken Unknown] metformin 500 mg tablet 500 mg PO DAILY 01/31/23 [History Last Taken Unknown] Allergy/AdvReac Type Severity Reaction Status Date / Time codeine Allergy Itching Verified 03/08/20 19:38 Penicillins [PCN] Allergy Itching Verified 03/08/20 19:38 Sulfa (Sulfonamide Allergy Itching Verified 03/08/20 19:38 Antibiotics) Tetanus Vaccines and Toxoid Allergy NEEDS Verified 03/08/20 19:38 FOLLOW-UP Social History Smoking Status: Former smoker ROS ROS ED Constitutional Constitutional ED: Reports chills, fever(s) and sweats; Denies weight loss Eyes Eyes: Denies change in vision or diplopia ENT ENT ED: Reports rhinorrhea; Denies ear pain or sore throat Cardiovascular Cardiovascular: Denies chest pain, orthopnea, palpitations or racing heartbeat Respiratory/Chest Respiratory/Chest: Reports cough, dyspnea, dyspnea on exertion and sputum; Denies orthopnea Gastrointestinal Gastrointestinal: Denies abdominal pain, diarrhea, nausea or vomiting Genitourinary Genitourinary ED: Denies dysuria, hematuria or urinary frequency Musculoskeletal Musculoskeletal: Reports myalgias; Denies arthralgias Integumentary Denies abscess or rash Neurologic Neurologic: Denies headache(s) or weakness Psychiatric Psychiatric: Denies anxiety, depression, suicidal ideation or suicidal thoughts Endocrine Endocrinology: Denies polydipsia, polyphagia or polyuria Allergic/Immunologic Allergic/Immunologic ED: Denies mouth swelling, tongue swelling or urticaria EXAM Physical Exam Const Vital Signs: 01/31/23 13:26 01/31/23 13:49 01/31/23 14:18 Temperature 99.3 F H Temperature Source Temporal Pulse Rate 120 H 120 H Respiratory Rate 22 H 20 H Respiratory Effort Short of Breath Respiratory Depth Normal Respiratory Pattern Normal Blood Pressure 140/79 H Blood Pressure Mean 99 Pulse Ox 94 Oxygen Delivery Method Room Air Room Air 12/15/23 15:20 01/31/23 16:30 Temperature 97.8 F Temperature Source Pulse Rate 18 L 113 H Respiratory Rate 121 H 19 H Respiratory Effort Respiratory Depth Respiratory Pattern Blood Pressure 100/73 115/77 Blood Pressure Mean 82 89 Pulse Ox 95 94 Oxygen Delivery Method Room Air Positive well nourished, well developed and obese General Appearance ED: well developed Nutritional Appearance: obese HEENT Reports normocephalic, head/scalp atraumatic and moist mucous membranes Eyes PERRL and EOMs intact bilaterally Neck no lymphadenopathy, supple and no JVD Resp Resp Narrative: Patient has conversational dyspnea Auscultation: rhonchi, wheezes and diminished lung sounds Cardio regular rate, regular rhythm and no murmurs Rate: tachycardic GI normal to inspection, nondistended, normoactive bowel sounds and non-tender Palpation: soft Back/Spine no CVA tenderness and normal ROM Extremity normal to inspection General Extremety ED: Negative for edema General Extremity: Negative for edema Neuro oriented x3 and CN's II-XII intact bilaterally Sensorium / Orientation: alert Motor Exam: strength 5/5 throughout Psych mental status grossly normal Mood & Affect: Negative for depressed or tearful Skin no rashes or lesions noted and no wounds MDM MDM MDM Narrative Medical decision making narrative: Patient received breathing treatments and later Solu-Medrol. White count 9.6 hemoglobin 15.1. Troponin 8 BNP 78. BMP showed a glucose of 170. My independent interpretation of the chest x-ray is no definitive infiltrate/consolidation. After the treatment the patient continues to be tachycardic and dyspneic. When she ambulates on room air her pulse ox is in the 80s. Patient appears to have a viral illness with bronchospasm and hypoxia. Plan is admission. History & Record Review Discussion w/independent historian: Patient Additional record(s) reviewed:: Prior ED visit and Prior labs Lab Data Attestation: I reviewed the patient's lab results. Labs: Laboratory Results - last 24 hr 01/31/23 14:00 WBC 9.6 RBC 4.55 Hgb 15.1 H Hct 43.8 MCV 96.3 MCH 33.2 H MCHC 34.5 RDW Std Deviation 44.1 H RDW Coeff of Rashaad 12.4 Plt Count 203 MPV 9.4 Immature Gran % (Auto) 0.300 Neut % (Auto) 77.4 H Lymph % (Auto) 10.2 L [place] % (Auto) 11.0 H Eos % (Auto) 0.7 Baso % (Auto) 0.4 Absolute Neuts (auto) 7.4 Absolute Lymphs (auto) 0.98 Nucleated RBC % 0 Sodium 135 L Potassium 3.7 Chloride 98 Carbon Dioxide 33.0 H Anion Gap 4 L BUN 9 Creatinine 0.68 Estim Creat Clear Calc 37.81 Est GFR (MDRD) Af Amer 109 Est GFR (MDRD) Non-Af 90 BUN/Creatinine Ratio 13.3 Glucose 170 H Calcium 9.8 Troponin I High Sens 8 B-Natriuretic Peptide 78.1 Radiography Diagnostic Testing: Clinical Impression(s) from Imaging Studies Chest X-Ray 01/31/23 14:17 IMPRESSION: Mass or congestion. Mild increased markings at the lung bases suggestive of linear atelectasis and/or scarring. Electronically Signed: Arcadio Perrin MD at 14:37 EST , ADDENDUM: 01/31/23 1509 IMPRESSION: Vascular congestion. Electronically Signed: Arcadio Perrin MD at 15:02 EST , EKG Initial EKG: Attestation: I personally reviewed and interpreted this EKG as follows: Comments: Sinus tachycardia with a ventricular rate of 114 bpm Management Discussion w/another healthcare provider: Hospitalist Discharge Plan Dx/Rx/DC Orders Clinical Impression: Acute bronchitis with bronchospasm, Hypoxia Disposition Disposition: Acute Care Hospital [facility] What to do if you have Problems For any increased pain, shortness of breath, bleeding, nausea or vomiting, chest pain, or any unexpected problems, contact your Primary Care Provider. Call [facility] ([phone]) or report to the closest Emergency Room. Call 911 if necessary. 01/31/23 1702 <Electronically signed by Stevo Tyro DO> Cosigner Signature (if applicable): CC: Dr. Rober Rubio MD ~ Signed [facility] Work Phone: 1(763) 199-392812-15-2023 Discharge summary Author Stevo Alcantara [facility] January 31, 2023 5:02pm Note Date/Time January 31, 2023 4:00pm [facility] Medical Records Department [address] [place] [address] Emergency Department Summary 01/31/23 MR#: [id number] Acct: [id number] Name: EMILY LOPEZ Rep #:[id number] 8 : 1950 72 From: Stevo Conklin PCP: Dr. Rober Rubio MD Status:ADM I N Location: [address] History of Present Illness Chief Complaint: Shortness of Breath Informant: patient Narrative Narrative: 72-year-old female presenting to the emergency room with shortness of breath andwheezing. Patient states that on Friday she developed cough and wheezing and progressively battled a week. She notes an associated fever which she states went away around Friday evening. She notes that she continues to Wheeze and bring up phlegm. She states that she quit smoking in 2010. She takes Trelegy and has a rescue inhaler. She states she has oxygen but wears it at night and it is just located in her bedroom. She states that she does not wear CPAP.. Patient notes that she has dyspnea with exertion to the bathroom. [facility] Medical History COVID Diabetes HTN (hypertension) Hypercholesteremia Obesity Pneumonia Home Medications albuterol sulfate 90 mcg/actuation aerosol inhaler 2 puff inhalation Q4H PRN PRNWheezing 03/08/20 [History Last Taken Unknown] amlodipine 10 mg tablet 10 mg PO DAILY 03/08/20 [History Last Taken Unknown] aspirin 81 mg tablet,delayed release 81 mg PO DAILY@0800 03/08/20 [History Last Taken Unknown] atorvastatin 40 mg tablet 40 mg PO QHS 03/08/20 [History Last Taken Unknown] lisinopril 40 mg tablet 40 mg PO DAILY 03/08/20 [History Last Taken Unknown] vitamins A,C,C-fzwv-awvjow 2,148 mcg-113 mg-45 mg-17.4 mg tablet 1 ea PO DAILY 03/08/20 [History Last Taken Unknown] fluticasone fur. 100 mcg-umeclid 62.5 mcg-vilant 25 mcg inhalat.powder (Trelegy Ellipta) 1 inh inhalation Q24H 01/31/23 [History Last Taken Unknown] metformin 500 mg tablet 500 mg PO DAILY 01/31/23 [History Last Taken Unknown] Allergy/AdvReac Type Severity Reaction Status Date / Time codeine Allergy Itching Verified 03/08/20 19:38 Penicillins [PCN] Allergy Itching Verified 03/08/20 19:38 Sulfa (Sulfonamide Allergy Itching Verified 03/08/20 19:38 Antibiotics) Tetanus Vaccines and Toxoid Allergy NEEDS Verified 03/08/20 19:38 FOLLOW-UP Social History Smoking Status: Former smoker ROS ROS ED Constitutional Constitutional ED: Reports chills, fever(s) and sweats; Denies weight loss Eyes Eyes: Denies change in vision or diplopia ENT ENT ED: Reports rhinorrhea; Denies ear pain or sore throat Cardiovascular Cardiovascular: Denies chest pain, orthopnea, palpitations or racing heartbeat Respiratory/Chest Respiratory/Chest: Reports cough, dyspnea, dyspnea on exertion and sputum; Denies orthopnea Gastrointestinal Gastrointestinal: Denies abdominal pain, diarrhea, nausea or vomiting Genitourinary Genitourinary ED: Denies dysuria, hematuria or urinary frequency Musculoskeletal Musculoskeletal: Reports myalgias; Denies arthralgias Integumentary Denies abscess or rash Neurologic Neurologic: Denies headache(s) or weakness Psychiatric Psychiatric: Denies anxiety, depression, suicidal ideation or suicidal thoughts Endocrine Endocrinology: Denies polydipsia, polyphagia or polyuria Allergic/Immunologic Allergic/Immunologic ED: Denies mouth swelling, tongue swelling or urticaria EXAM Physical Exam Const Vital Signs: 01/31/23 13:26 01/31/23 13:49 01/31/23 14:18 Temperature 99.3 F H Temperature Source Temporal Pulse Rate 120 H 120 H Respiratory Rate 22 H 20 H Respiratory Effort Short of Breath Respiratory Depth Normal Respiratory Pattern Normal Blood Pressure 140/79 H Blood Pressure Mean 99 Pulse Ox 94 Oxygen Delivery Method Room Air Room Air 01/31/23 15:20 01/31/23 16:30 Temperature 97.8 F Temperature Source Pulse Rate 18 L 113 H Respiratory Rate 121 H 19 H Respiratory Effort Respiratory Depth Respiratory Pattern Blood Pressure 100/73 115/77 Blood Pressure Mean 82 89 Pulse Ox 95 94 Oxygen Delivery Method Room Air Positive well nourished, well developed and obese General Appearance ED: well developed Nutritional Appearance: obese HEENT Reports normocephalic, head/scalp atraumatic and moist mucous membranes Eyes PERRL and EOMs intact bilaterally Neck no lymphadenopathy, supple and no JVD Resp Resp Narrative: Patient has conversational dyspnea Auscultation: rhonchi, wheezes and diminished lung sounds Cardio regular rate, regular rhythm and no murmurs Rate: tachycardic GI normal to inspection, nondistended, normoactive bowel sounds and non-tender Palpation: soft Back/Spine no CVA tenderness and normal ROM Extremity normal to inspection General Extremety ED: Negative for edema General Extremity: Negative for edema Neuro oriented x3 and CN's II-XII intact bilaterally Sensorium / Orientation: alert Motor Exam: strength 5/5 throughout Psych mental status grossly normal Mood & Affect: Negative for depressed or tearful Skin no rashes or lesions noted and no wounds MDM MDM MDM Narrative Medical decision making narrative: Patient received breathing treatments and later Solu-Medrol. White count 9.6 hemoglobin 15.1. Troponin 8 BNP 78. BMP showed a glucose of 170. My independent interpretation of the chest x-ray is no definitive infiltrate/consolidation. After the treatment the patient continues to be tachycardic and dyspneic. When she ambulates on room air her pulse ox is in the 80s. Patient appears to have a viral illness with bronchospasm and hypoxia. Plan is admission. History & Record Review Discussion w/independent historian: Patient Additional record(s) reviewed:: Prior ED visit and Prior labs Lab Data Attestation: I reviewed the patient's lab results. Labs: Laboratory Results - last 24 hr 01/31/23 14:00 WBC 9.6 RBC 4.55 Hgb 15.1 H Hct 43.8 MCV 96.3 MCH 33.2 H MCHC 34.5 RDW Std Deviation 44.1 H RDW Coeff of Rashaad 12.4 Plt Count 203 MPV 9.4 Immature Gran % (Auto) 0.300 Neut % (Auto) 77.4 H Lymph % (Auto) 10.2 L [place] % (Auto) 11.0 H Eos % (Auto) 0.7 Baso % (Auto) 0.4 Absolute Neuts (auto) 7.4 Absolute Lymphs (auto) 0.98 Nucleated RBC % 0 Sodium 135 L Potassium 3.7 Chloride 98 Carbon Dioxide 33.0 H Anion Gap 4 L BUN 9 Creatinine 0.68 Estim Creat Clear Calc 37.81 Est GFR (MDRD) Af Amer 109 Est GFR (MDRD) Non-Af 90 BUN/Creatinine Ratio 13.3 Glucose 170 H Calcium 9.8 Troponin I High Sens 8 B-Natriuretic Peptide 78.1 Radiography Diagnostic Testing: Clinical Impression(s) from Imaging Studies Chest X-Ray 01/31/23 14:17 IMPRESSION: Mass or congestion. Mild increased markings at the lung bases suggestive of linear atelectasis and/or scarring. Electronically Signed: Arcadio Perrin MD at 14:37 EST , ADDENDUM: 01/31/23 1509 IMPRESSION: Vascular congestion. Electronically Signed: Arcadio Perrin MD at 15:02 EST , EKG Initial EKG: Attestation: I personally reviewed and interpreted this EKG as follows: Comments: Sinus tachycardia with a ventricular rate of 114 bpm Management Discussion w/another healthcare provider: Hospitalist Discharge Plan Dx/Rx/DC Orders Clinical Impression: Acute bronchitis with bronchospasm, Hypoxia Disposition Disposition: Acute Care Hospital [facility] What to do if you have Problems For any increased pain, shortness of breath, bleeding, nausea or vomiting, chest pain, or any unexpected problems, contact your Primary Care Provider. Call [facility] ([phone]) or report to the closest Emergency Room. Call 911 if necessary. 01/31/23 1702 <Electronically signed by Stevo Alcantara DO> Cosigner Signature (if applicable): CC: Dr. Rober Rubio MD ~ Signed [facility] Work Phone: 1(587) 170-116408-21-2023 Miscellaneous Notes* Telephone Encounter - Gil Garnica LPN - 10/07/2022 1:09 PM EDT [facility] 11/29/21 NOV no upcoming appt * Telephone Encounter - Jenni Lomax - 10/07/2022 11:23 AM EDT Patient has been identified by name and date of : Yes Last office visit in this department: 11/29/2021 RX INSTRUCTIONS: Patient aware RX will be sent to pharmacy. No need to notify patient. Patient phones requesting refills as follows: Requested Prescriptions Pending Prescriptions Disp Refills albuterol HFA (PROAIR HFA) 90 mcg/actuation inhaler 18 g 3 Sig: Inhale 2 Puffs as instructed every 4 hours as needed. amLODIPine (NORVASC) 10 mg tablet 90 tablet 3 Sig: Take 1 tablet by mouth once daily. atorvastatin (LIPITOR) 40 mg tablet 90 tablet 3 Sig: Take 1 tablet by mouth once daily. fwdahwxwhuu-uvewqzplr-lfdhtioj (TRELEGY ELLIPTA) 100-62.5-25 mcg inhalation powder 60 Each 5 Sig: Inhale 1 Puff as instructed once daily. lisinopril (ZESTRIL) 40 mg tablet 90 tablet 3 Sig: Take 1 tablet by mouth once daily. metFORMIN (GLUCOPHAGE) 500 mg tablet 90 tablet 3 Sig: Take 1 tablet by mouth daily with breakfast. Please review and advise. Jenni Barron Pss [facility] History of Present illness Narrative* Vivienne Izquierdo MA - 06/17/2022 8:11 AM EDT POPULATION HEALTH NAVIGATION OUTREACH Action/FYI Unable to LVM, mailbox is not set up Mychart message sent HCC GAP J44.9 - COPD with chronic bronchitis (HCC) - [id number] Last Billed 11/29/2021 E11.9 - Type 2 diabetes mellitus without complication, without long-term current use of insulin (HCC) - [id number] Last Billed 11/29/2021 ANNUAL MEDICARE WELLNESS BP CONTROLLED (<130/80) Never done MAMMOGRAM due on 03/10/2020 ADVANCE DIRECTIVE DISCUSSION due on 02/17/2022 HBA1C due on 05/30/2022 Patient Identified by Name and : NO Outreach Outcome/Action Unable to reach patient: Phone number not valid / voicemail full Did you use a PCP flex slot to schedule this appointment? N/A Reason for Outreach HCC or suspected condition Payer: Payor: MEDICARE / Plan: MEDICARE A AND B / Product Type: Medicare / Care Gap Reviewed:: Annual Wellness visit Breast Cancer screening Controlling Blood Pressure HBA1C Reminder: Reminder note to check Health Maintenance for items below Health Maintenance items due: BP CONTROLLED (<130/80) Never done DTAP,TDAP,TD(1 - Tdap) Never done ALPHA-1 ANTITRYPSIN DEFICIENCY SCREENING Never done SHINGRIX VACCINE(2 of 3) due on 08/29/2012 MAMMOGRAM due on 03/10/2020 ADVANCE DIRECTIVE DISCUSSION due on 02/17/2022 DEPRESSION ASSESSMENT Never done HBA1C due on 05/30/2022 Navigation Signature: Vivienne Izquierdo MA June 17, 2022 8:11 AM documented in [facility] encounter[facility]-30-2023 Miscellaneous Notes* Telephone Encounter - Hanh Wynn - 03/18/2022 10:33 AM EST Patient has been identified by name and date of : Yes Requested Prescriptions Pending Prescriptions Disp Refills amLODIPine (NORVASC) 10 mg tablet 90 tablet 3 Sig: Take 1 tablet by mouth once daily. lisinopril (ZESTRIL, PRINIVIL) 40 mg tablet 90 tablet 3 Sig: Take 1 tablet by mouth once daily. RX INSTRUCTIONS: Patient aware RX will be sent to pharmacy. No need to notify patient. Hanh Wynn documented in this encounter[facility]11-29-2022 Instructions* Patient Instructions* Martin Benites APRN.CNP - 01/15/2022 3:49 PM EST Return in 1 year for annual LDCT lung cancer screening. documented [facility]11[facility]29-[facility]22 History of Present illness Narrative* Martin Benites APRN.CNP - 01/15/2022 1:51 PM EST Chief Complaint: Lung nodule follow-up from LDCT scan dated 03/21/2021 for LUNG RADS Category 3 finding of 7.1 mm solid nodule is located in RLL. History of Present Illness: Emily Lopez is a 71 year old female who is presenting today for 7.1 mm RLL pulmonary nodule follow-up. Nodule was found through lung cancer screening on LDCT. Patient has a PMH significant for COPD, T2DM, HTN, hyperlipidemia, osteopenia. Patient is a former smoker with a 30 pack year history. Since the patient's last visit the patient has not had new medical issues or hospitalizations. No recent respiratory infections/pneumonia. Patient engages in moderate intensity or higher exercise Once weekly or less often for approximately TIME (0->60): none. Any limitations to patient's activity are due to shortness of breath. The patient does require assistance with normal activities of daily living due to vision issues. Modified Medical Research [place] Dyspnea Scale (MMRC) I get short of breath when hurrying on level ground or walking up a slight hill 1 Patient's appetite is good and weight is stable. Respiratory symptoms include shortness of breath that is stable for her. 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 [employer] Environmental:none Past Medical History: PAST MEDICAL HISTORY Diagnosis Date COPD (chronic obstructive pulmonary disease) (HCC) HTN (hypertension) 01/15/2012 Hyperlipidemia Macular degeneration Meniere's disease Surgical Hx: PAST SURGICAL HISTORY Procedure Laterality Date APPENDECTOMY CHOLECYSTECTOMY COLONOSCOPY 08/27/2021 repeat in 5 years COLONOSCOPY FLX DX W/COLLJ SPEC WHEN PFRMD 12/04/2016 Colonoscopy - regular villous adenoma recommended 3 year follow-up PAST SURGICAL HISTORY OF exploratory lap for endometriosis SURGERY (GENERAL SURGERY) CONSULT 1997 LEFT ARM SURGERY TONSILLECTOMY HX TOTAL ABDOM HYSTERECTOMY age 42 Family Hx: FAMILY HISTORY Problem Relation Age of Onset Diabetes Mother Thyroid Mother Diabetes Father COPD Father smoker Diabetes Sister Bipolar disorder Sister Bipolar disorder Daughter other (10 grandchildren) Grandchild Cancer No Family History Allergies: ALLERGIES Allergen Reactions Tetanus Vaccines An* Anaphylaxis Codeine Other: See Comments Patient states it feels like bugs are crawling on her Penicillins Rash Seasonal Allergies Other: See Comments Sulfa (Sulfonamide * Rash Social History Tobacco Use: .75 packs/day, for 40 years. Quit 11/26/2010. Types: Cigarettes Review Of Systems: See HPI for ROS GENERAL: Negative for weakness, fevers, and weight loss. NECK: Tenderness on right side clavicle area RESPIRATORY: Shortness of breath All of the remainder systems were reviewed and negative. PHYSICAL EXAMINATION: BP 117/76 Pulse 108 Wt 180 lb (81.6kg) SpO2 93% General appearance: well appearing, in no acute distress, and alert Neck: Supple, no adenopathy; thyroid symmetric, normal size, no bruits, Mild tenderness right clavicle area Respiratory: lungs clear to auscultation no wheezing or rhonchi Cardiovascular: Negative. RRR without murmur, gallop, or rubs. No ectopy Musculoskeletal: Gait is normal Neuro: Oriented X 3 Data Review I have visually reviewed imaging and testing below CT 12/20/2021 was reviewed and compared to CT lung screen 03/21/2021. The concerning nodule was 7.1 mmpart solid nodule in RLL that was decreased in size and has a ground glass appearance on 12/20/21 imaging. Additionally, LLL 3.7 mm, JACQUES 3.3 mm and RLL 2.9 mm nodules were stable. Prior PFTS: SPIROMETRY - BASELINE AND POST DILATOR ([id number]) - [facility] 03[facility]08[facility] [address] [place] [address] Test Date: 2020-03-08 Pat Name: EMILY LOPEZ Department: Room: Gender: Female Elder Assistant: STEPHY Scales : 1950 Requested By: Rober RUBIO Order Number: [id number] Reading MD: Hoda Cyr M.D. Interpretive Statements 2 Puffs of albuterol (180mcg) delivered by MDI via Aerochamber HRpre =101 /min, HRpost= 101/min. ATS/ERS acceptability and repeatability standards for spirometry met. IMPRESSION: Spirometry indicates moderate obstruction. There was not a significant bronchodilator response. Electronically Signed On 03-09-2020 16:26:46 EST by Hoda Cyr M.D. Site: WO ID: [id number] Name: EMILY LOPEZ Visit Date: 03/08/2020 Second ID: [id number] Referring Doctor: Rober MONTERO Elder Assistant: STEPHY Scales Age: 69 : 1950 Sex: Female Race: Height: 61.80 Inches Weight: 187.00 Lbs BSA: 1.85 Order IDs: [id number] Requested Test(s): Spirometry - baselline and post dilator Post Test Comments: 2 Puffs of albuterol (180mcg) delivered by MDI via Aerochamber HRpre =101 /min, HRpost= 101/min. ATS/ERS acceptability and repeatability standards for spirometry met. Review Status: Not Reviewed Pre-Bronch Post-Bronch Pred LLN ULN Actual %Pred Actual %Chng SPIROMETRY FVC (L) 2.63 1.92 3.38 2.05 77 2.12 3 FEV1 (L) 2.05 1.49 2.59 1.19 57 1.23 3 FEV1/FVC (%) 78 65 9 0 58 73 58 FEF 25% (L/sec) 4.51 2.36 6.65 1.58 35 1.57 -1 FEF 50% (L/sec) 3.34 1.53 5.15 0.68 20 0.76 11 FEF 75% (L/sec) 0.43 0.16 1.13 0.21 48 0.25 21 FEF 25-75% (L/sec) 1.78 0.82 3.15 0.52 29 0.58 11 FEF Max (L/sec) 5.31 3.16 59 3.25 2 FIVC (L) 2.11 1.90 -9 FIF 50% (L/sec) 3.36 1.92 4.79 3.92 116 3.19 -18 FIF Max (L/sec) 3.93 3.21 -18 FET (sec) 8.71 8.84 1 Back Extrap Vol (L) 0.07 0.03 -50 Time To FEFmax (sec) 0.079 0.064 -18 Assessment and Plan: 1. Pulmonary Nodule: Concerning lung nodules identified on the last CT are stable (unchanged), and no new nodules of concern were seen on the exam. Recommended follow-up in one year. The patient was counseled on the importance of adherence to 12 mos annual LDCT lung cancer screening, impact of comor bidities and ability or willingness to undergo diagnosis and treatment. 2. Former Smoker: Continue with smoking cessation. Martin Benites APRN.CNP January 15, 2022 1:51 PM Medical Decision Making: Problems: Moderate: 2+ stable chronic illnesses Data: Unique test result(s) reviewed: 2 Independent interpretation of test from other physician/QHCP Risk: Low: Low risk from testing/treatment Medical Decision Making Level: 4 - Moderate 30 minutes spent face to face with more than half of this for disease counseling about patient's lung nodule/s. Associated attestation - Sandra Taylor APRN.CNP - 01/15/2022 11:23 PM EST TEACHING PROVIDER (Physician/PA/SOIL SCIENTIST) NOTE OF PERSONAL INVOLVEMENT IN CARE: I have personally seen and examined the patient and performed the medical decision-making components. I have reviewed the Martin Benites 's documentation and verified the findings in the note as written. Any additions or changes are noted in bold/italics. ASSESSMENT/PLAN: 1. Lung nodules - ICD9: 793.19, ICD10: R91.8 (primary diagnosis) Previously identified RLL 7.[address] 03/2021 improved on follow up CT 12/20/2021 over >6 months with minimal residual GG appearances. Additional RLL, JACQUES, LLL, RUL nodules < [address] 12/2021. No new concerning lung nodules or mediastinal adenopathy noted on recent CT. Plan; follow up in one year LDCT scan 2. Former tobacco use - ICD9: V15.82, ICD10: Z87.891 Continues to abstain from nicotine use. Signature: Sandra Taylor APRN.DRYING TUNNEL OPERATOR Date: 01/15/2022 Time: 11:07 PM documented in this encounter[facility]11-29-2022 History of Present illness Narrative* Singh Miguel RT(Viv) - 01/15/2022 10:30 AM EST Radiology Service Progress Note PATIENT NAME: Emily Lopez DATE OF SERVICE: January 15, 2022 TIME: 11:17 AM PATIENT IDENTITY VERIFICATION COMPLETED USING TWO (2) IDENTIFIERS: Name and Date of confirmedby patient verbally. FALL SCREENING: Has the patient had 2 falls in the last year or 1 fall with injury or currently using an Ambulatory Assistive Device (Walker, Cane, Wheelchair, Crutches, etc.)? No PATIENT GENDER DATA: Female. status: : No status: NO. PATIENT RELEVANT IMPLANT DATA REVIEWED: Not Applicable RADIOLOGY DEPARTMENT: Bone Density PERIPHERAL IV DATA: Not applicable SIGNED BY: RT Yassine(R) January 15, 2022 11:17 AM documented in this encounterOhio [facility] Hospital10-27-2022 Miscellaneous Notes* Telephone Encounter - Rod Reich RN - 12/13/2021 1:08 PM EDT Patient calls to let provider know that she needs an order for a CXR faxed to [facility] at [phone]. No orders for CXR in chart noted. Patient scheduled to have a CT Lung Screen on 12/20/2021 but no order on file noted. Contacted [facility] who reports they need CT Lung Screen Order. CT Lung Screen was originally performed outside of [facility]. This was to be 6 month follow up. Patient no-show to CT Scan and follow up appointment with Pulmonary 09/18/2021 with Sandra Taylor . Notified ordering provider. Rod Reich, RN documented in this encounterOhio [facility] Hospital10-20-2022 Miscellaneous Notes* Telephone Encounter - Myra Mcgrath Ma - 12/06/2021 2:59 PM EDT Lab added * Telephone Encounter - Gil Garnica LPN - 12/03/2021 2:13 PM EDT TC to lab client services, on hold for 10 min. Will need to try again later. Gil Garnica LPN * Telephone Encounter - Nicola Monroe PA-C - 12/01/2021 1:08 PM EDT Please ask lab to add hemoglobin A1c from the CBC drawn a few days ago. I mistakenly ordered the test for 3 months ahead. Telephone on 12/01/21 HGB A1C Thanks, Jimmie Monroe PA-C documented in this [facility]10-13-2022 Instructions* Patient Instructions* Nicola Monroe PA-C - 11/29/2021 12:44 PM EDT BONE MINERAL DENSITY PATIENT INSTRUCTIONS Bone mineral density testing measures the amount of calcium in certain parts of your bones. This information determines how strong your bones are. The test is used to detect osteoporosis, a disease in which the bone's mineral content and density are low, increasing a person's risk of fractures. Thelumbar spine (lower back) and the hip are the skeletal sites usually examined. For the test, remember that: 1. You cannot take this test if you are . 2. Eat a normal diet on the day of the test. 3. Take your medications as you normally would. 4. DO NOT take calcium supplements (such as Tums) for 24 hours before the test. 5. On the day of the test, leave valuables (jewelry or credit cards) at home. 6. The test should be performed prior to oral, rectal or IV contrast studies, or at least 7 days after any of these studies. For the test, you may be asked to wear a hospital gown. You will lie on your back, on a padded table, in a comfortable position. Generally, you can resume your usual activities immediately. documented in this encounterOhio [facility]10-13-2022 History of Present illness Narrative* Nicola Monroe PA-C - 11/29/2021 11:20 AM EDT Emily Lopez is a 71 year old female new to me here for a Medicare subsequent annual visit Health Risk Assessment In general, health is: Good Concerns with tiredness, difficulties with sexual function, balance, teeth/dentures: Not at all [place] anxious, stressed, angry, irritable, lonely, isolated, or had thoughts of hurting themself: Several days unable to drive, has to depend on others Has little interest or pleasure in doing things: Not at all Bothered by feeling down, depressed, or hopeless: Not at all Needs help with grocery shopping, cooking, housework, bathing, grooming, dressing, eating, sitting or standing, walking, using the toilet, handling finances, taking medications, using the telephone, or driving: Yes. Unable to see due to macular degeneration, dependent for travel, finances Following safety precautions in the home environment and vehicle: removed throw rugs from floors, installed grab bars in the bathroom, handrails in stairwells, having adequate lighting, wearing seatbelt at all times?: Yes Smokes cigarettes, vapes, or chew tobacco: No Eats healthy foods including fruits, vegetables, whole grains, and fiber-rich foods: More than halfthe days Number of days per week engages in exercise: 0 days Average alcohol consumption: 4 or more times a week Current Providers Patient Care Team: Rober Rubio MD as PCP - General (Family Medicine) Bryson Mariee RPh as Pharmacist (Pharmacy) Rm Lo MD as Surgeon (General Surgery) Dr. Hoda Cyr Specialists: I have reviewed specialist-related care of the patient in the medical record. Medical/Family history review Reviewed and updated problem list, medical history, surgical history, family history, social history, medication list, and allergies. Opioid use review Patient is not currently using opioids. Depression screening Depression Screening PHQ-2 Score 07/14/2018 0 Depression screening tool completed and reviewed. Based on score and interview, patient is not at risk for depression. Screening tool discussed with patient, and I recommended no further interventionat this time. Cognitive screening Mini Cog Score: Score: 5 Cognitive screening reviewed and no further action needed (score 3-5) Functional Observation Was the patient's timed Up & Go test unsteady or longer than 30 seconds? No Advance Care Planning End of Life planning discussed, including patient's advanced directive wishes: Yes Measurements There were no vitals taken for this visit. Visual acuity: follows with optometry/ophthalmology and Right: 20/200 Left: 20/ 200 Both: 20/200 Hearing Evaluation: hard of hearing Assessment/Plan - Counseled on healthy diet and regular exercise - Fall avoidance Additional Concerns The following concerns were also discussed with the patient: Primary hypertension Coronary artery calcification Aortic valve calcification Mixed hyperlipidemia Cardiovascular interval hx: no new data Current meds: Atorvastatin 40 mg daily at bedtime Amlodipine 10 mg daily Lisinopril 40 mg daily ASA 81 mg EC daily Use of NTG: No Chest pain, arm, jaw pain, neck, or upper back pain suggestive of angina: No. SOB: Yes, Covid lung, if gets sick can get blood brody in lung Dyspnea with exertion: if sweeping floor has to orthopnea: 3 pillows, lightheaded is lays flat racing or irregular heartbeats: No palpitations: No syncopal sx: No Unexplainable fatigue No Leg swelling: No Nausea: No diaphoresis: No Heartburn: No Claudication: No Smoking: No Following Low cholesterol, high fiber diet? Yes If on statin: muscle aches? No If on statin: GI sx or diarrhea? No Additional history none. Type 2 diabetes mellitus without complication, with long-term current use of insulin (hcc) Current medications: Metformin 500 mg 1 tablet daily with breakfast Taking medication as directed consistently? Yes Medical Issues / Complications: hypertension and hyperlipidemia Checking blood sugars at home? No. Watching diet? Yes. Eats small furuits, veggeies, Lean Cuisine Physical Activity: Sedentary Hypoglycemic spells? No Any visual disturbance? Yes, chronic macular degeneration Chest pain? No New numbness, tingling or loss of sensation? Chronic in both feet Any recent foot problems, sores or rashes? No Any recent or sudden weight loss? No Change in urination? No. No nocturia Any recent illness? No Last eye exam: see retinal specialist. Last foot exam: due. HBA1C: Hemoglobin A1C (%) Date Value 12/29/2020 6.9 ) CMP: Glucose 130 12/29/2020 BUN 14 12/29/2020 Creatinine 0.63 12/29/2020 Sodium 137 12/29/2020 Potassium 3.9 12/29/2020 Chloride 99 12/29/2020 CO2 25 12/29/2020 Protein, Total 7.4 12/29/2020 Albumin 4.6 12/29/2020 Calcium 9.2 12/29/2020 Alkaline Phosphatase 130 12/29/2020 Bilirubin, Total 0.4 12/29/2020 AST 44 12/29/2020 ALT 39 12/29/2020 Last 2 Encounter Wt Readings: Date: Wt: 08/27/2021 81.6 kg (180 lb) 06/25/2021 81.6 kg (180 lb) Pulmonary emphysema, unspecified emphysema type (hcc) Sob (shortness of breath) Copd with chronic bronchitis (hcc) Hypoxia Bridge Crane Operator: Dr. Hoda Cyr. Interval history: under evaluation. Current medications: Trelegy Ellipta 100-62 point 5-25 MC inhalation daily Albuterol 90mcg 2 puffs q4h prn wheezing. Worsening shortness of breath: no change in last year. Cough: Yes. Occasional. Has fall allergies and sinus drainage which makes it worse at this time of year. Wheezing: Yes. Smoking: No. Compliant with medications: No. Using rescue inhaler: twice a day, routinely in morning with Trelegy, and in evening routinely Concerned she was able to make appointment for lung cancer screening 09/18/2021- asking to have recheduled 03/21/[address] chest Nodule 1: This Solid nodule is located in the Right Upper Lobe on slice number 182 with an average diameter of 7.1 mm (8.0 mm x 6.3 mm). Nodule 2: This Solid nodule is located in the Left Lower Lobe on slice number 228 with an average diameter of 3.7 mm (3.7 mm x 3.7 mm). Nodule 3: This Solid nodule is located in the Left Upper Lobe on slice number 152 with an average diameter of 3.3 mm (3.7 mm x 2.9 mm). Nodule 4: This Solid nodule is located in the Left Lower Lobe on slice number 231 with an average diameter of 2.9 mm (3.7 mm x 2.2 mm). Vision loss Macular degeneration Current medications: PreserVision AREDS 1 tab daily History of colonic polyps 08/17/[address] Rm Lo: Perianal and digital rectal exam normal, 2 sessile polypstransverse colon ascending colon, 7 mm polyp in the rectum, a few widemouth diverticula in sigmoid colon. Path: A. Ascending colon: Tubular adenoma, B. Hepatic flexure polyp: Sessile serrated polyp, C. Colon polyp at 50 cm: Hyperplastic Elevated liver enzymes Hepatic steatosis 11/13/2016 US RUQ hepatic steatosis Component Latest Ref Rng & Units 07/06/2018 07/15/2019 Protein, Total 6.3 - 8.0 g/dL 8.1 (H) 7.8 Albumin 3.9 - 4.9 g/dL 4.7 4.9 Calcium 8.5 - 10.2 mg/dL 9.7 9.4 Bilirubin, Total 0.2 - 1.3 mg/dL 0.4 0.5 Alkaline Phosphatase 34 - 123 U/L 112 124 (H) AST 13 - 35 U/L 24 47 (H) Glucose 74 - 99 mg/dL 78 103 (H) BUN 7 - 21 mg/dL 13 15 Creatinine 0.58 - 0.96 mg/dL 0.55 (L) 0.60 Sodium 136 - 144 mmol/L 138 141 Potassium 3.7 - 5.1 mmol/L 4.0 4.1 Chloride 97 - 105 mmol/L 97 100 CO2 22 - 30 mmol/L 26 27 Anion Gap 9 - 18 mmol/L 15 14 ALT 7 - 38 U/L 24 56 (H) eGFR- >60 >60 eGFR-All Other Races . >60 >60 Vitamin d deficiency Current medications: Vit D2 50,000u weekly Component Latest Ref Rng & Units 01/20/2020 12/29/2020 Vitamin D 25 Hydroxy 31.0 - 80.0 ng/mL 20.0 (L) 39.3 Right arm pain in upper humerus following fracture 06/06/10 healed with sling [facility]ed at [facility] 1995 Endometriosis: has hysterectomy, 2 weeks later on filling out paper work found out uterus precancerous. Asking how to report this to the government for screening for her daughters for preventive intervention. PHYSICAL EXAM EXAM: BP 128/62 Pulse 109 Resp 20 Ht 156 cm (5' 1.42) Wt 79.8 kg (176 lb) SpO2 96% BMI 32.80kg/m Pleasant obese adult woman in no acute distress. Alert and oriented all spheres. Normal affect and cognition. Speech normal. No deficits to learning or comprehension. Skin warm, dry, pink to lips and nailbeds. Normal turgor. Speaking easily in full sentences. Respirations regular and u HEENT: NCAT. PERRLA. EOMI. No scleral icterus or conjunctival injection. TM's clear. Nose and oropharynx free from injection or lesion. Oral membranes moist and pink. No cervical lymph nodes. Thyroidnon-tender, no masses, or enlargement. Carotids pulses 2+/4+ without bruits. No JVD with HOB at 30 degrees. Chest is normal shape. Lungs are clear to all villalpando with good air exchange through out. HRRR without murmur or gallop. No lifts, heaves, or rubs. Abdomen: active bowel sounds throughout, soft, nontender, no masses or organomegaly. No CVAT. Extrem: no clubbing or cyanosis. Edema: none. Extremities are warm and pink with prompt capillary refill. Radial and dorsal pedal pulses easily palpable, Distal sensation and circulation intact with prompt capillary refill. Feet:Shoes and socks removed, Are you having foot pain no, No deformities, ulcers, calluses, normaldistal pulses, and sensitive to 10 gm monofilament. Smooth painted nails. ASSESSMENT/PLAN: 1. Medicare annual wellness visit, subsequent - ICD9: V70.0, ICD10: Z00.00 (primary diagnosis) - Counseled on healthy diet and regular exercise - Calcium intake with supplements or by diet of 1000 mg/day for under 50, 1200- 1500 mg/day for 50+ - Discussed need and benefit for weight loss. BMI 32.80 kg/(m^2) - Bone mineral density ordered - Depression screening tool completed and reviewed with patient. Based on score and interview, patient is already diagnosed with depression and recommended no further intervention at this time. - Patient was counseled [id number] by myself (the billing provider) for the following immunizations and vaccine components, including side effects: COVID- 19. Patient declines immunization and understands risks and benefits. Has 2 friends who from heart attack after this booster. Follow up for annual exam in one year 2. Primary hypertension - ICD9: 401.9, ICD10: I10 - good control - Recommended regular aerobic exercise. - Recommend home blood pressure monitoring, to bring results in on next visit - Discussed need and benefit for weight loss. - Goal of BP <130/80 - COMP METABOLIC PANEL - CBC 3. Coronary artery calcification - ICD9: 414.00, 414.4, ICD10: I25.10, I25.84 4. Aortic valve calcification - ICD9: 424.1, ICD10: I35.[address] chest, no recommendations were given by ordering provider. Has no symptoms in correlation outside chronic breathing issues. 5. Type 2 diabetes mellitus without complication, with long-term current use of insulin (HCC) - ICD9: 250.00, V58.67, ICD10: E11.9, Z79.4 Controlled. - Continue current medications - Encouraged regular aerobic exercise and weight loss - HGB A1C - CBC - ALBUMIN/CREAT RATIO RND UR 6. Mixed hyperlipidemia - ICD9: 272.2, ICD10: E78.2 - good control - Continue current medication. - COMP METABOLIC PANEL - LIPID PANEL BASIC 7. Pulmonary emphysema, unspecified emphysema type (HCC) - ICD9: 492.8, ICD10: J43.9 Follows with pulm Refill: - TRELEGY ELLIPTA 100 MCG-62.5 MCG-25 MCG POWDER FOR INHALATION 8. SOB (shortness of breath) - ICD9: 786.05, ICD10: R06.02 As above - TRELEGY ELLIPTA 100 MCG-62.5 MCG-25 MCG POWDER FOR INHALATION 9. COPD with chronic bronchitis (HCC) - ICD9: 491.20, ICD10: J44.9 As above - TRELEGY ELLIPTA 100 MCG-62.5 MCG-25 MCG POWDER FOR INHALATION 10. Hypoxia - ICD9: 799.02, ICD10: R09.02 resolved 11. Vision loss - ICD9: 369.9, ICD10: H54.7 Macular degeneration- very disabling to patient Follows with retinal specialists 12. History of colonic polyps - ICD9: V12.72, ICD10: Z86.010 10 year surveillance 13. Elevated liver enzymes - ICD9: 790.5, ICD10: R74.8 Needs to recheck - COMP METABOLIC PANEL 14. Vitamin D deficiency - ICD9: 268.9, ICD10: E55.9 High dose replacement needs to be monitored. - VITAMIN D 25 HYDROXY 15. Asymptomatic postmenopausal status - ICD9: V49.81, ICD10: Z78.0 Due for follow up - DXA-AXIAL SKELETON 16. Obesity, Class I, BMI 30-34.9 - ICD9: 278.00, ICD10: E66.9 Weight decreasing - Behavioral intervention Identified on-line site for reporting complications from [place]-resource given to patient 12 minute chart prep, 57 minute visit - Nicola Monroe PA-C documented in this encounterOhio [facility] Hospital09-22-2022 Miscellaneous Notes* Telephone Encounter - Edwige Islas [facility] [place] - 11/08/2021 11:51 AM EDT Patient has been identified by name and date of : Yes Requested Prescriptions Pending Prescriptions Disp Refills henfkmvszep-uubrgxhsh-sauharyn (TRELEGY ELLIPTA) 100-62.5-25 mcg inhalation powder 60 Each 5 Sig: Inhale 1 Puff as instructed once daily. RX INSTRUCTIONS: Patient aware RX will be sent to pharmacy. No need to notify patient. [facility] documented in this encounter[facility]08-03-2022 Miscellaneous Notes* Telephone Encounter - Lisa Fatima RN - 09/19/2021 2:40 PM EDT Attempted to call Emily. No answer and the voicemail box is full. Will mail a letter to the patient at her home address. Health maintenance andsurgical history update and recall letter placed. Lisa Fatima RN * Telephone Encounter - Chinyere Briones - 09/17/2021 9:04 AM EDT Attempted to call patient, Voice mail is full, No answer. * Telephone Encounter - Lisa Fatima RN - 09/14/2021 11:01 AM EDT Attempted to call Emily ([phone]), no answer and the voicemail box is full. Lisa Fatima RN * Telephone Encounter - Gris Israel PA-C - 09/14/2021 10:50 AM EDT Patient did not log in for scheduled virtual visit. Please let her know pathology from colon polypsshowed tubular adenoma, sessile serrated polyp and hyperplastic polyps. These were benign, but two of these can represent precancerous types of polyps, so recommend repeat colonoscopy in 5 years for s [place]. Please update HM and generate recall letter documented in this encounterOhio [facility] Hospital08-02-2022 History of Present illness Narrative* Sandra Taylor APRN.[facility] - 09/18/2021 1:30 PM EDT Images from the original note were not included. No Show for follow up visit. Sandra Taylor APRN.[facility] documented in this [facility] Miscellaneous Notes* Telephone Encounter - Lisa Fatima RN - 09/07/2021 3:53 PM EDT Scheduled for 09/14/2021 at 10:30 am. Lisa Fatima RN * Telephone Encounter - Lisa Fatima RN - 09/03/2021 12:51 PM EDT ----- Message from Gris Israel PA-C sent at 09/03/2021 10:06 AM EDT ----- Please schedule patient for VV or office visit to review path results [facility] History and physical note * Rm Lo MD - 08/27/2021 9:15 AM EDT UPDATED PROCEDURAL SEDATION HISTORY AND PHYSICAL EXAMINATION SERVICE DATE: 08/27/2021 SERVICE TIME: 9:07 AM PHYSICAL EXAM MUST BE COMPLETED ON ADMISSION PROCEDURE: Procedure Indications: The History and Physical (completed in the past 30 days) has been reviewed and the patient has beenexamined. The contents accurately reflect the patient's condition with the following additions or revisions since the H&P was completed. ASA Class: ASA Class:: Patient with severe systemic disease Examination indicates no changes. AIRWAY: Airway Visualization of Uvula: Yes Mouth opening greater than 2 fingerbreadths: Yes Neck Full Range of Motion: Yes LUNGS: Lungs clear to auscultation CARDIAC: Regular rhythm,Regular rate Provisional Diagnosis/Treatment Plan: personal history of polyps - colonoscopy SEDATION GOAL: Moderate This H&P can be found in the attached. SIGNATURE: Rm Lo MD PATIENT NAME: Emily Lopez DATE: August 27, 2021 TIME: 9:07 AM * Rm Lo MD - 08/27/2021 9:15 AM EDT Images from the original note were not included. HISTORY AND PHYSICAL Emily Lopez 1950 REFERRING PHYSICIAN: Rober Rubio MD CHIEF COMPLAINT: Consult (colonoscopy) HPI: The patient is a 70 year old female referred for endoscopy. Emily notes no colon complaints. Patient denies any change in bowel habits, weight changes, blood in stools, black tarry stools or abdominal pain. Denies family history of colon issues. The patient notes no upper GI complaints. Emily has undergone prior endoscopy. Most recent colonoscopy 12/04/[address] Lo with removal of tubulovillous and tubular adenomas. Patient's past medical history is significant for COPD, hypertension, hyperlipidemia. Patient denies chest pain, shortness of breath or recent hospitalizations. Denies problems with sedation in the past. PAST MEDICAL HISTORY PAST MEDICAL HISTORY Diagnosis Date COPD (chronic obstructive pulmonary disease) (HCC) HTN (hypertension) 01/15/2012 Hyperlipidemia Macular degeneration Meniere's disease PAST SURGICAL HISTORY PAST SURGICAL HISTORY Procedure Laterality Date APPENDECTOMY CHOLECYSTECTOMY COLONOSCOPY FLX DX W/COLLJ SPEC WHEN PFRMD 12/04/2016 Colonoscopy - regular villous adenoma recommended 3 year follow-up PAST SURGICAL HISTORY OF exploratory lap for endometriosis SURGERY (GENERAL SURGERY) CONSULT 1997 LEFT ARM SURGERY TONSILLECTOMY HX TOTAL ABDOM HYSTERECTOMY age 42 CURRENT MEDICATIONS Current Outpatient Medications Medication Sig metFORMIN (GLUCOPHAGE) 500 mg tablet Take 1 tablet by mouth daily with breakfast. amLODIPine (NORVASC) 10 mg tablet Take 1 tablet by mouth once daily. lisinopril (ZESTRIL, PRINIVIL) 40 mg tablet Take 1 tablet by mouth once daily. zcnemlftuxq-gfuvdtuqt-zsqnstkc (TRELEGY ELLIPTA) 100-62.5-25 mcg inhalation powder Inhale 1 Puff asinstructed once daily. Lancets lancets Test blood sugar(s) 1 times daily. Dx: Type 2 DM - Controlled E11.9 Insulin: No blood sugar diagnostic (BLOOD GLUCOSE TEST) test strip Test blood sugar(s) 1 times daily. Dx: Type 2 DM - Controlled E11.9 Insulin: Yes atorvastatin (LIPITOR) 40 mg tablet Take 1 tablet by mouth once daily. ergocalciferol 50,000 unit capsule (VITAMIN D2, DRISDOL) Take 1 capsule by mouth one time a week. albuterol HFA (PROAIR HFA) 90 mcg/actuation inhaler Inhale 2 Puffs as instructed every 4 hours as needed. vit A,C,R-Isct-Uuntrt (PRESERVISION AREDS) 7,160-113-100 kfrh-wk-khec tab Take by mouth. aspirin, enteric coated (ASPIRIN LOW DOSE) 81 mg EC tablet Take 1 tablet by mouth once daily. clobetasol (TEMOVATE) 0.05 % cream Apply at sparingly to perineum up to twice daily for no more than 2 weeks as needed for irritation (Patient not taking: Reported on 04/10/2021 ) Current Facility-Administered Medications Medication Dose Route Frequency perflutren lipid microspheres 1.3 mL in NaCl (PF) 0.9% 10 mL injection (DEFINITY) INTRAVENOUS DIRECTED PRN sodium chloride 0.9 % (flush) 10 mL (BD POSIFLUSH) 10 mL INTRAVENOUS DIRECTED PRN ALLERGIES: Tetanus Vaccines And Toxoid, Codeine, Penicillins, Seasonal Allergies, and Sulfa (Sulfonamide Antibiotics) PERSONAL HISTORY: SOCIAL HISTORY Social History Tobacco Use Smoking status: Former Smoker Packs/day: 0.75 Years: 40.00 Pack years: 30.00 Types: Cigarettes Start date: 02/17/1970 Quit date: 11/26/2010 Years since quittin.3 Smokeless tobacco: Never Used Vaping Use Vaping Use: Never used Substance Use Topics Alcohol use: Yes Comment: 2 drink per day- wine Drug use: No FAMILY HISTORY: FAMILY HISTORY FAMILY HISTORY Problem Relation Age of Onset Diabetes Mother Thyroid Mother Diabetes Father COPD Father smoker Diabetes Sister Bipolar disorder Sister Bipolar disorder Daughter Cancer No Family History REVIEW OF SYMPTOMS: The review of systems data was entered by the nurse and reviewed by de Nursing Notes: Rae Donaldson LPN 04/10/2021 3:13 PM Signed REVIEW OF SYSTEMS: General: The patient denies fatigue, denies weight loss, denies weight gain, denies feeling hot, and denies feelings of cold. Eyes: The patient denies glaucoma, denies eye injury/surgery, wears glasses or contacts. Ear/Nose/Throat: The patient notes allergies, notes hayfever, denies ear infections, and denies bloody noses. Cardiovascular: The patient denies chest pain, denies heart disease, denies high blood pressure,denies cardiac stent, denies prior heart attack, denies irregular heart beat, notes high cholesterol, denies poor circulation, denies heart failure, other cardiac issues, denies claudication, denies coldfeet, denies peripheral arterial stent. Respiratory: The patient denies tuberculosis, notes pneumonia, denies frequent cough, notes pulmonary embolism, notes shortness of breath, and denies coughing up blood. Gastrointestinal: The patient denies difficulty swallowing, denies acid reflux, denies ulcers, denies vomiting, denies jaundice/hepatitis, denies gallbladder problems, denies black or tarry stools, denies hemorrhoids, denies bleeding from rectum, denies diverticulitis, denies constipation, denies diarrhea, denies loss of stool control, and denies hernias. Kidney/Bladder: The patient denies kidney stones, denies urine infections, and denies bloody urine. Skin: The patient denies a history of skin cancer, denies bleeding/changing moles, and denies a history of skin rash. Neurologic: The patient denies a history of epilepsy/convulsions, notes headaches, denies head/spinal injuries, and denies stroke/TIA. Psychiatric: The patient denies psychiatric medications, denies depression, and denies voices, denies substance abuse. Endocrine: The patient denies thyroid disorders, notes diabetes, and denies hormonal problems. Hematologic: The patient denies a history of bruising, denies bleeding, and denies anemia, notes blood clots. Infections: The patient notes a history of measles and mumps, denies rheumatic fever, and denies sexually transmitted diseases. Musculoskeletal: The patient denies back pain/injury, notes back problems, denies sciatica, denies knee/foot trouble, denies arthritis, or denies gout. When was patient's last Mammogram screening? 2019 Last Colonoscopy: 2016 Rae Donaldson LPN I have confirmed and edited as necessary, the PFSH and ROS obtained by others. Gris Israel PA-C PHYSICAL EXAMINATION: General: The patient is 70 year old female, well nourished, well hydrated in no acute distress. Thepatient is oriented to time, place, and person. VITALS: Blood pressure 134/64, pulse (!) 132, temperature 36.6 C (97.8 F), height 154.9 cm (5' 1),weight 83.9 kg (185 lb), SpO2 93 %. Body mass index is 34.96 kg/m . HEENT: Normal cephalic, ataumatic, pupils are equally round, sclera are anicteric, mucous membranesare moist, oropharynx is clear. Neck has no masses, asymmetry or lymphadenopathy. Respiratory: Clear to auscultation and percussion. Normal respiratory excursion and pattern. Cardiac: Examination is regular rate and rhythm. Normal S1/S2 Abdominal exam: Soft, nontender, with no palpable masses. No hepatosplenomegaly. No palpable hernias. Extremities: no clubbing, cyanosis or edema. No adenopathy. LABORATORY VALUES: As Noted RADIOLOGIC STUDIES: As Noted Assessment IMPRESSION: history of colon polyps, encounter for surveillance colonoscopy PLAN: I have reviewed my findings with the surgeon. Will plan for lower endoscopy. We discussed therisks and benefits of the planned endoscopy. I have informed the patient that complications can occur including failure to complete the endoscopy and perforation. The patient had the opportunity to ask questions concerning the planned endoscopy. My staff has also explained the procedure to the patient in understandable terms and has given the patient printed material concerning the procedure. Thepatient freely consents to surgery. The patient was offered a [facility]. I have counseled the patient regarding the risk of exposure to and/or potential harm posed by the COVID-19 virus with having a surgery/procedure at this time versus the risk of delaying the surgery/procedure. It is not possible to know either the risk of delaying the surgery or procedure or chance of getting an infection with perfect accuracy, but a joint decision was made between the patient and myself to proceed at this time with endoscopy. I plan to use Golytely bowel preparation We will plan for Monitored Anesthetic Care. Patient instructed to contact PCP for instructions regarding diabetic medication, which may requireadjustment during bowel preparation and/or day of procedure Diagnoses: (Z12.11) Encounter for screening for malignant neoplasm of colon (primary encounter diagnosis) (Z86.010) History of colonic polyps Consultation requested by Dr. Rubio for an opinion regarding screening colonoscopy. My final recommendations will be communicated back to the requesting physician by way of shared Medical record or letter to requesting physician via US mail. Gris Israel PA-C [facility] Miscellaneous Notes* Telephone Encounter - Emilee Montelongo Pss - 07/03/2021 11:52 AM EDT Pharmacy verified in [facility] Patient has been identified by name and date of : Yes Patient aware RX will be sent to pharmacy. No need to notify patient. Patient phones for refill(s): Pending Prescriptions Disp Refills METFORMIN 500 MG TABLET 90 tablet 3 Sig: Take 1 tablet by mouth daily with breakfast. NAJMA: No ATORVASTATIN 40 MG TABLET 90 tablet 3 Sig: Take 1 tablet by mouth once daily. NAJMA: No ALBUTEROL SULFATE HFA 90 MCG/ACTUATION AEROSOL INHALER 18 g 3 Sig: Inhale 2 Puffs as instructed every 4 hours as needed. NAJMA: No Date of last office visit : 04/10/2021 Date of next office visit : Visit date not found Last 2 Encounter Wt Readings: Date: Wt: 06/25/2021 81.6 kg (180 lb) 04/10/2021 83.9 kg (185 lb) Please advise. Emilee Montelongo Pss documented [facility] Instructions* Patient Instructions* Ro Babb APRN.[facility] - 06/25/2021 1:32 PM EDT Images from the original note were not included. Heart Disease in Women Is heart disease a problem for women? Heart disease is the leading cause of of [place] women. More women from heart disease than from cancer. A heart attack can happen when there are problems with the blood vessels that bring blood to the heart (the coronary arteries). For example, fatty deposits called plaque may build up in the coronary arteries and make them narrower. The narrowing decreases blood flow to the heart. Plaque also increases the chance that blood clots may form and block a blood vessel, which can cause a heart attack orstroke. In the first year after a heart attack, women have an increased risk of . In the first 6 yearsafter a heart attack, they also have a higher risk of a second heart attack. Women are at high riskoften because they are older at the time of the heart attack and have other medical problems. Not everyone has the same symptoms. The most common symptoms of a heart attack include: Chest pain or pressure, squeezing, or fullness in the center of your chest that lasts more than a few minutes, or goes away and comes back (may feel like indigestion or heartburn) Pain or discomfort in one or both arms or shoulders, or in your back, neck, jaw, or stomach Trouble breathing Breaking out in a cold sweat for no known reason Along with these symptoms, you may also feel very tired, faint, or be sick to your stomach. Sometimes you can be having a heart attack and not know it. Many women have chest pain or pressure,but sometimes symptoms in women are different from men s symptoms. Or women may have additional symptoms, such as: Unexplained anxiety and nervousness Swelling of the ankles or lower legs Because they may not feel the typical pain in the left side of their chest, many women may ignore the symptoms of a heart attack. Call 911 for emergency help right away if you have these symptoms. Donot drive yourself to the hospital. Immediate emergency care improves your chances of survival and may help avoid damage to your heart. How can women lower their risk for heart disease? If you have high blood pressure, carefully follow your healthcare provider's instructions for keeping it under control. If you are a smoker, stop smoking. Try to keep a healthy weight. If you are overweight, talk to your provider about ways to lose weight. Eat a healthy diet that includes: ?Avoiding salty foods and not adding salt to food ?Increasing fiber, fruits, and vegetables ?Avoiding foods high in fat, cholesterol, and sugar Exercise according to your healthcare provider's instructions. Get enough rest and learn to use relaxation methods to help reduce stress. Treat and control medical conditions such as diabetes and high cholesterol. If you are taking hormone therapy, you and your healthcare provider should discuss the risks and benefits. Hormone therapy may increase the risk for heart disease or stroke. Talk with your provider about taking aspirin. Low-dose aspirin therapy reduces the risk of stroke for women. But it helps to lower a woman s risk of heart attack and other heart problems only if she is 65 or older. Make sure that your provider knows about any other medicines you are taking. If you decide you needto make changes in the way you live, you probably won't be able to turn your life around all at once. Try to develop healthy habits that incorporate your lifestyle goals. If you do, you will greatly decrease your chances for developing heart disease. You can get more information from: [place] [facility] Wmihmdlsofd0-122-[employer]-[place]-1 ( )www.heart.org Developed by [employer]. Published by [employer]. Copyright 2014 [employer] and/or one of its subsidiaries. All rights reserved. CORONARY ARTERY DISEASE View image View image WHAT IS CORONARY ARTERY DISEASE? Coronary artery disease (CAD) is a type of heart disease caused by a problem with the blood vesselsthat bring blood and oxygen to the heart muscle. These arteries are called the coronary arteries. This disease increases your risk for heart attack and sudden . WHAT IS THE CAUSE? Fatty deposits called plaque may build up in blood vessels and make them narrower. The narrowing decreases the amount of blood flow to the heart. Plaque also increases the chance that blood clots mayform and block a blood vessel, which can cause a heart attack or stroke. Your risk for CAD may be higher if you: Have a family history of coronary artery disease at an early age Smoke Have high blood pressure Have diabetes Are very overweight Don t get enough exercise Have high levels of blood fat--for example, high cholesterol WHAT ARE THE SYMPTOMS? Coronary artery disease may not cause any symptoms. When there are symptoms, the most common one ischest pain, called angina. You may feel: A feeling of tightness or heaviness in the chest Squeezing, pressure, or burning in the chest Angina symptoms usually: Last for 5 minutes or less and go away with rest or medicine such as nitroglycerin. Happen when the heart has to work harder, such as after a heavy meal or during physical activity oremotional stress. Angina may also happen when you are resting. Call 911 for emergency help right away if you have symptoms of a heart attack. The most common symptoms include: Chest pain or pressure, squeezing, or fullness in the center of your chest that lasts more than a few minutes, or goes away and comes back (may feel like indigestion or heartburn) Pain or discomfort in one or both arms or shoulders, or in your back, neck, jaw, or stomach Trouble breathing Breaking out in a cold sweat for no known reason If your provider has prescribed nitroglycerin for angina, pain that does not go away after taking your nitroglycerin as directed Along with these symptoms, you may also feel very tired, faint, or be sick to your stomach. HOW IS IT DIAGNOSED? Your healthcare provider will ask about your symptoms and medical history and examine you. Tests may include: Blood tests An ECG (also called an EKG or electrocardiogram), which measures and records your heartbeat. An exercise treadmill test to see how your heart works when you exercise An echocardiogram, which uses sound waves (ultrasound) to see how well your heart is pumping Angiogram, which is a series of X-rays taken after your healthcare provider injects a special dye into your blood vessels to show the batres of the arteries and any blockage CT scan, which uses X-rays and a computer to show detailed pictures of the arteries HOW IS IT TREATED? Your treatment depends on many factors, such as your age, heart muscle function, and other health problems. At first, treatment may include diet changes and an exercise program. Your healthcare provider may prescribe medicine. Many people need to take 2 or more medicines to help prevent a heart attack or stroke. It may take several weeks or months to find the best treatment for you. Your provider may also prescribe other types of medicine to lower blood pressure, help stop chest pain, control an irregular heartbeat, help prevent blood clots, or lower blood fat (cholesterol). Your provider may recommend a daily low dose of aspirin. Taking an aspirin every day may lower yourrisk for a heart attack or stroke. Not everyone should take aspirin. Daily use of aspirin can causeproblems, such as stomach irritation, bleeding, and hearing loss. Ask your healthcare provider if you should take aspirin and if so, how much to take. If your coronary arteries are badly blocked, you may need balloon angioplasty or bypass surgery. A balloon angioplasty opens blocked blood vessels and improves blood flow. A metal mesh device called a stent is usually left in the blood vessels to help keep them open. Bypass surgery uses blood vessels from other parts of the body, or manmade material, to make a new path around a blocked area. HOW CAN I TAKE CARE OF MYSELF? CC If you have coronary artery disease, there are things you can do to take care of yourself now and prevent problems in the future. Follow your provider's advice about activity, exercise, medicine, and follow-up visits. Lower the amount of salt, saturated and trans fats, and cholesterol in your diet. Work with your healthcare provider to control diabetes, blood pressure, or other health problems you may have. Try to keep a healthy weight. If you are overweight, talk to your provider about ways to lose weight. If you smoke, try to quit. Talk to your healthcare provider about ways to quit smoking. Ask your healthcare provider: o How and when you will hear your test results o How long it will take to recover o What activities you should avoid and when you can return to your normal activities o How to take care of yourself at home o What symptoms or problems you should watch for and what to do if you have them Make sure you know when you should come back for a checkup. HOW CAN I HELP PREVENT CORONARY ARTERY DISEASE? You can prevent this disease with a heart-healthy lifestyle: Eat a healthy diet and keep a healthy weight. Stay fit with the right kind of exercise for you. Find ways to manage stress. Don t smoke. Limit your use of alcohol. Talk to your healthcare provider about your personal and family medical history and your lifestyle habits. This will help you know what you can do to lower your risk for coronary artery disease. If you have a strong family history of CAD, a healthy lifestyle may slow the start of the disease and maybe even keep you from getting it. However, you must have regular checkups to keep a close watch on the health of your heart. Developed by [employer]. Published by [employer]. Copyright 2014 [employer] and/or one of its subsidiaries. All rights reserved. documented in this [facility] History of Present illness Narrative* Ro Babb APRN.DRYING T[employer]NEL OPERATOR - 06/25/2021 1:06 PM EDT Images from the original note were not included. [facility] SE[facility]AL CARDIOLOGY Cardiology ([facility]) [address] [facility] [id number] OUTPATIENT VISIT June 25, 2021 1:00 PM Chief Complaint Patient presents with: Consult History of Present Illness: Emily Lopez is a 70 year old female who presents for cardiology evaluation. She has a PMhx ofCAD (seen on CT of chest), HTN, HLD, COPD, post Covid. She explains she has chronic shortness of breath from COPD and COVID lungs. She is somewhat limited in activity by her dyspnea. She has been e xercising 20 minutes at a time each day by pedaling. She endorses dizziness related to ear ringing.She otherwise is without overt cardiac complaints. She denies chest pain or discomfort with activity. We reviewed risk factors and modifications. She reports taking medications as prescribed. she is planning a trip to [place] this July. PAST MEDICAL HISTORY Diagnosis Date COPD (chronic obstructive pulmonary disease) (HCC) HTN (hypertension) 01/15/2012 Hyperlipidemia Macular degeneration Meniere's disease PAST SURGICAL HISTORY Procedure Laterality Date APPENDECTOMY CHOLECYSTECTOMY COLONOSCOPY FLX DX W/COLLJ SPEC WHEN PFRMD 12/04/2016 Colonoscopy - regular villous adenoma recommended 3 year follow-up PAST SURGICAL HISTORY OF exploratory lap for endometriosis SURGERY (GENERAL SURGERY) CONSULT 1997 LEFT ARM SURGERY TONSILLECTOMY HX TOTAL ABDOM HYSTERECTOMY age 42 FAMILY HISTORY Problem Relation Age of Onset Diabetes Mother Thyroid Mother Diabetes Father COPD Father smoker Diabetes Sister Bipolar disorder Sister Bipolar disorder Daughter Cancer No Family History Social History Tobacco Use Smoking status: Former Smoker Packs/day: 0.75 Years: 40.00 Pack years: 30.00 Types: Cigarettes Start date: 02/17/1970 Quit date: 11/26/2010 Years since quittin.5 Smokeless tobacco: Never Used Vaping Use Vaping Use: Never used Substance Use Topics Alcohol use: Yes Comment: 2 drink per day- wine Drug use: No Cardiac Risk Factors: ALLERGIES Allergen Reactions Tetanus Vaccines An* Anaphylaxis Codeine Other: See Comments Patient states it feels like bugs are crawling on her Penicillins Rash Seasonal Allergies Other: See Comments Sulfa (Sulfonamide * Rash Medications: Current Outpatient Medications Medication Sig Dispense Refill ergocalciferol 50,000 unit capsule (VITAMIN D2, DRISDOL) Take 1 capsule by mouth one time a week. 12 capsule 3 metFORMIN (GLUCOPHAGE) 500 mg tablet Take 1 tablet by mouth daily with breakfast. 90 tablet 3 amLODIPine (NORVASC) 10 mg tablet Take 1 tablet by mouth once daily. 90 tablet 3 lisinopril (ZESTRIL, PRINIVIL) 40 mg tablet Take 1 tablet by mouth once daily. 90 tablet 3 yxonopzybgf-yesqzdjss-hrgvbkio (TRELEGY ELLIPTA) 100-62.5-25 mcg inhalation powder Inhale 1 Puff asinstructed once daily. 1 Each 5 Lancets lancets Test blood sugar(s) 1 times daily. Dx: Type 2 DM - Controlled E11.9 Insulin: No 100Each 11 blood sugar diagnostic (BLOOD GLUCOSE TEST) test strip Test blood sugar(s) 1 times daily. Dx: Type 2 DM - Controlled E11.9 Insulin: Yes 50 Strip 11 atorvastatin (LIPITOR) 40 mg tablet Take 1 tablet by mouth once daily. 90 tablet 3 albuterol HFA (PROAIR HFA) 90 mcg/actuation inhaler Inhale 2 Puffs as instructed every 4 hours as needed. 18 g 3 vit A,C,H-Ljfx-Regzvv (PRESERVISION AREDS) 7,160-113-100 lnfk-oj-llue tab Take by mouth. 0 aspirin, enteric coated (ASPIRIN LOW DOSE) 81 mg EC tablet Take 1 tablet by mouth once daily. 0 clobetasol (TEMOVATE) 0.05 % cream Apply at sparingly to perineum up to twice daily for no more than 2 weeks as needed for irritation (Patient not taking: Reported on 04/10/2021 ) 30 g 0 Current Facility-Administered Medications Medication Dose Route Frequency Provider Last Rate Last Admin perflutren lipid microspheres 1.3 mL in NaCl (PF) 0.9% 10 mL injection (DEFINITY) INTRAVENOUS DIRECTED PRN Lorenza Vo APRN.DRYING TUNNEL OPERATOR sodium chloride 0.9 % (flush) 10 mL (BD POSIFLUSH) 10 mL INTRAVENOUS DIRECTED PRN Lorenza Vo APRN.DRYING TUNNEL OPERATOR Review of Systems Constitutional: Negative for chills, diaphoresis, fever, malaise/fatigue and weight loss. HENT: Positive for tinnitus. Negative for congestion, ear pain, nosebleeds, sinus pain and sore throat. Eyes: Negative for pain. Respiratory: Positive for sputum production. Negative for cough, shortness of breath and wheezing. Cardiovascular: Negative for chest pain, palpitations and leg swelling. Gastrointestinal: Negative for abdominal pain, blood in stool and melena. Genitourinary: Negative for hematuria. Musculoskeletal: Negative for falls. Neurological: Positive for dizziness. Negative for tingling, sensory change, speech change, focal weakness, loss of consciousness, weakness and headaches. Endo/Heme/Allergies: Does not bruise/bleed easily. Psychiatric/Behavioral: Negative for depression, memory loss and suicidal ideas. The patient is notnervous/anxious and does not have insomnia. Physical Examination: Vitals:BP 132/65 Pulse 100 Wt 180 lb (81.6kg) Last 2 Encounter Wt Readings: Date: Wt: 04/10/2021 185 lb (83.9 kg) 03/21/2021 183 lb (83 kg) Physical Exam HENT: Head: Normocephalic. Eyes: Pupils: Pupils are equal, round, and reactive to light. Cardiovascular: Rate and Rhythm: Normal rate and regular rhythm. Pulses: Radial pulses are 2+ on the right side and 2+ on the left side. Dorsalis pedis pulses are 2+ on the right side and 2+ on the left side. Heart sounds: Normal heart sounds, S1 normal and S2 normal. Pulmonary: Effort: Pulmonary effort is normal. No accessory muscle usage or respiratory distress. Breath sounds: Normal breath sounds. Abdominal: General: Bowel sounds are normal. Palpations: Abdomen is soft. Musculoskeletal: General: Normal range of motion. Cervical back: Normal range of motion. Right lower leg: No edema. Left lower leg: No edema. Skin: General: Skin is warm and dry. Neurological: Mental Status: She is alert and oriented to person, place, and time. Gait: Gait is intact. Psychiatric: Mood and Affect: Affect normal. Cognition and Memory: Memory normal. Judgment: Judgment normal. Most Recent Cardiac Testing 05/07/2021 CONCLUSIONS: - Technically difficult exam due to body habitus. - Exam indication: Shortness of Breath - The left ventricle is normal in size. Left ventricular systolic function is hyperdynamic. EF = 75 5% (visual est.) Grade I left ventricular diastolic dysfunction. - The right ventricle is normal in size. Right ventricular systolic function is normal. - There are no significant valvular abnormalities. - Patient was tachycardic throughout entire exam. - Definity contrast could not be administered d/t unavailbility of staff. 03/2021 Atherosclerotic calcifications are seen in the aorta. Mild aortic valve leaflet calcifications are seen. Coronary Artery Calcifications: Circumflex Minimum; Left Anterior Descending Moderate; Right Coronary Moderate 02/01/2020 CONCLUSIONS: 1. SPECT Perfusion Study: Normal. 2. There is no scintigraphic evidence for inducible ischemia. 3. No evidence of scarred myocardium. 4. Left ventricle is normal in size. The left ventricle systolic function is normal. 5. Right ventricle is normal in size. The right ventricle systolic function is normal. 6. This is a low risk scan. Gated Stress FBP LVEF % 68 Assessment and Plan: CAD -seen on CT of chest of chest 04/08/2021 Coronary Artery Calcifications: Circumflex Minimum; Left Anterior Descending Moderate; Right Coronary Moderate -Stress testing completed 02/06/2020 without suggestion of ischemia -EF 75%, normal wall motion 04/2021 -without symptoms concerning for angina -Continue aspirin and statin -encouraged routine activity and heart healthy diet for risk factor modification Chronic diastolic heart failure -EF 75%, Grade I left ventricular diastolic dysfunction -compensated on exam -recommended heart healthy, 2g low sodium diet, daily weights HTN -132/65 -Encouraged dietary sodium restriction/DASH diet -Recommended regular aerobic exercise. -Recommend home blood pressure monitoring, to bring results in on next visit -Discussed need and benefit for weight loss. -Goal of BP <130/80 HLD -lipid panel 12/2020 LDL 102 -continue Lipitor 40 mg COPD/post Covid -Follows with pulmonary DM2 -A1c 12/2020 6.9 -Metformin Follow-up in 1 year. Patient to call with any issues or concerns prior to then. Electronically signed by Ro Babb APRN.CNP on June 25, 2021, 1:06 PM [facility] Miscellaneous Notes* Telephone Encounter - Sanjuana Kamilah - 06/13/2021 2:18 PM EDT Patient has been identified by name and date of : Yes Last office visit in this department: 04/10/2021 RX INSTRUCTIONS: Patient aware RX will be sent to pharmacy. No need to notify patient. Patient phones requesting refills as follows: Pending Prescriptions Disp Refills ERGOCALCIFEROL (VITAMIN D2) 1,250 MCG (50,000 UNIT) CAPSULE 12 capsule 3 Sig: Take 1 capsule by mouth one time a week. NAJMA: No Please review and advise. Sanjuana Triana documented in this [facility]02-22-2022 Miscellaneous Notes* Telephone Encounter - Gil Clayton - 04/10/2021 4:14 PM EST 08-27-2021 Colon Oakley [facility] Miscellaneous Notes* Telephone Encounter - Drea Snowden Pss - 01/17/2021 2:27 PM EST 1st attempt left message to return call to schedule DM program * Telephone Encounter - Myra Mcgrath Ma - 01/16/2021 3:13 PM EST Images from the original note were not included. Rober Rubio MD P [facility] Set up diabetic management program consults documented in this [facility]12-03-2020 History of Present illness Narrative* Mignon Lester (Rt), Tech - 01/20/2020 3:30 PM EST Radiology Service Progress Note PATIENT NAME: Emily Lopez DATE OF SERVICE: January 20, 2020 TIME: 3:47 PM PATIENT IDENTITY VERIFICATION COMPLETED USING TWO (2) IDENTIFIERS: Name and Date of confirmedby patient verbally. FALL SCREENING: Has the patient had 2 falls in the last year or 1 fall with injury or currently using an Ambulatory Assistive Device (Walker, Cane, Wheelchair, Crutches, etc.)? No PATIENT GENDER DATA: Female. status: : No status: NO. PATIENT RELEVANT IMPLANT DATA REVIEWED: Not Applicable RADIOLOGY DEPARTMENT: General X-ray: Exam(s) Completed: Chest X-Ray PERIPHERAL IV DATA: Not applicable SIGNED BY: RT Tom January 20, 2020 3:47 PM [facility] History of Past illness Narrative* Problem Noted Date Resolved Date Other emphysema 12/09/2014 07/20/2020 Fracture of proximal humerus 03/24/201404/2018 documented as of this encounter (statuses as of 06/13/2021) [place] [id number] History of Past illness Narrative* Problem Noted Date Resolved Date Other emphysema 12/09/2014 07/20/2020 Fracture of proximal humerus 03/24/201404/2018 documented as of this encounter (statuses as of 06/25/2021) [place] [address]2015 History of Past illness Narrative* Problem Noted Date Resolved Date Other emphysema 12/09/2014 07/20/2020 Fracture of proximal humerus 03/24/201404/2018 documented as of this encounter (statuses as of 07/02/2021) [place] [address]2015 History of Past illness Narrative* Problem Noted Date Resolved Date Other emphysema 12/09/2014 07/20/2020 Fracture of proximal humerus 03/24/201404/2018 documented as of this encounter (statuses as of 07/03/2021) [place] [id number] History of Past illness Narrative* Problem Noted Date Resolved Date Other emphysema 12/09/2014 07/20/2020 Fracture of proximal humerus 03/24/201404/2018 documented as of this encounter (statuses as of 07/11/2021) [place] [address]2015 History of Past illness Narrative* Problem Noted Date Resolved Date Other emphysema 12/09/2014 07/20/2020 Fracture of proximal humerus 03/24/201404/2018 documented as of this encounter (statuses as of 07/24/2021) [address]23-2015 History of Past illness Narrative* Problem Noted Date Resolved Date Other emphysema 12/09/2014 07/20/2020 Fracture of proximal humerus 03/24/201404/2018 documented as of this encounter (statuses as of 08/28/2021) [address]23-2015 History of Past illness Narrative* Problem Noted Date Resolved Date Other emphysema 12/09/2014 07/20/2020 Fracture of proximal humerus 03/24/201404/2018 documented as of this encounter (statuses as of 09/07/2021) [address]23-2015 History of Past illness Narrative* Problem Noted Date Resolved Date Other emphysema 12/09/2014 07/20/2020 Fracture of proximal humerus 03/24/201404/2018 documented as of this encounter (statuses as of 09/18/2021) [address]23-2015 History of Past illness Narrative* Problem Noted Date Resolved Date Other emphysema 12/09/2014 07/20/2020 Fracture of proximal humerus 03/24/201404/2018 documented as of this encounter (statuses as of 09/19/2021) [address]23[address]2015 History of Past illness Narrative* Problem Noted Date Resolved Date Other emphysema 12/09/2014 07/20/2020 Fracture of proximal humerus 03/24/201404/2018 documented as of this encounter (statuses as of 11/08/2021) [address]23[address]2015 History of Past illness Narrative* Problem Noted Date Resolved Date Other emphysema 12/09/2014 07/20/2020 Fracture of proximal humerus 03/24/201404/2018 documented as of this encounter (statuses as of 11/30/2021) [address]23-2015 History of Past illness Narrative* Problem Noted Date Resolved Date Other emphysema 12/09/2014 07/20/2020 Fracture of proximal humerus 03/24/201404/2018 documented as of this encounter (statuses as of 12/06/2021) [place] [address] History of Past illness Narrative* Problem Noted Date Resolved Date Other emphysema 12/09/2014 07/20/2020 Fracture of proximal humerus 03/24/201404/2018 documented as of this encounter (statuses as of 12/14/2021) [place] [address]2015 History of Past illness Narrative* Problem Noted Date Resolved Date Other emphysema 12/09/2014 07/20/2020 Fracture of proximal humerus 03/24/201404/2018 documented as of this encounter (statuses as of 12/17/2021) [place] [address]2015 History of Past illness Narrative* Problem Noted Date Resolved Date Other emphysema 12/09/2014 07/20/2020 Fracture of proximal humerus 03/24/201404/2018 documented as of this encounter (statuses as of 12/21/2021) [place] [address]2015 History of Past illness Narrative* Problem Noted Date Resolved Date Other emphysema 12/09/2014 07/20/2020 Fracture of proximal humerus 03/24/201404/2018 documented as of this encounter (statuses as of 01/16/2022) [place] [address]2015 History of Past illness Narrative* Problem Noted Date Resolved Date Other emphysema 12/09/2014 07/20/2020 Fracture of proximal humerus 03/24/201404/2018 documented as of this encounter (statuses as of 02/25/2022) [facility] N[facility]ative* Problem Noted Date Resolved Date Other emphysema 12/09/2014 07/20/2020 Fracture of proximal humerus 03/24/201404/2018 documented as of this encounter (statuses as of 03/18/2022) [facility] Narrative* Problem Noted Date Resolved Date Other emphysema 12/09/2014 07/20/2020 Fracture of proximal humerus 03/24/201404/2018 documented as of this encounter (statuses as of 06/07/2022) [facility] Narrative* Problem Noted Date Resolved Date Other emphysema 12/09/2014 07/20/2020 Fracture of proximal humerus 03/24/201404/2018 documented as of this encounter (statuses as of 06/18/2022) [place] [address]2015 History of Past illness Narrative* Problem Noted Date Diagnosed Date Resolved Date Other emphysema 12/09/2014 07/20/2020 Fracture of proximal humerus 03/24/2014 02/19/2018 documented as of this encounter (statuses as of 10/07/2022) [place] [address]2015 History of Past illness Narrative* Problem Noted Date Diagnosed Date Resolved Date Other emphysema 12/09/2014 07/20/2020 Fracture of proximal humerus 03/24/2014 02/19/2018 documented as of this encounter (statuses as of 12/22/2022) [address]2015 History of Past illness Narrative* Problem Noted Date Diagnosed Date Resolved Date Other emphysema 12/09/2014 07/20/2020 Fracture of proximal humerus 03/24/2014 02/19/2018 documented as of this encounter (statuses as of 01/27/2023) [facility]arrative* Problem Noted Date Diagnosed Date Resolved Date Other emphysema 12/09/2014 07/20/2020 Fracture of proximal humerus 03/24/2014 02/19/2018 documented as of this encounter (statuses as of 05/23/2023) [facility] Diagnosis Vitamin D deficiency Unspecified vitamin D deficiency [facility]* Diagnosis Primary hypertension- Primary Unspecified essential hypertension Coronary artery calcification Coronary atherosclerosis of unspecified type of vessel, [place] or graft Aortic valve calcification Aortic valve disorders Mixed hyperlipidemia [facility]* Diagnosis Screening for colon cancer- Primary Special screening for malignant neoplasms, colon Personal history of colonic polyps [facility]* Diagnosis Type 2 diabetes mellitus without complication, with long-term current use of insulin (HCC) Hyperlipidemia, unspecified hyperlipidemia type Pulmonary emphysema, unspecified emphysema type (HCC) [facility]* Diagnosis Encounter for screening laboratory testing for COVID-19 virus in asymptomatic patient- Primary Encounter for screening for COVID-19 [facility]* Diagnosis Screening for colon cancer Special screening for malignant neoplasms, colon Personal history of colonic polyps [facility]* Diagnosis No-show for appointment- Primary [facility]* Diagnosis Medicare annual wellness visit, subsequent- Primary Routine general medical examination at a health care facility Primary hypertension Unspecified essential hypertension Coronary artery calcification Coronary atherosclerosis of unspecified type of vessel, [place] or graft Aortic valve calcification Aortic valve disorders Type 2 diabetes mellitus without complication, with long-term current use of insulin (HCC) Mixed hyperlipidemia Pulmonary emphysema, unspecified emphysema type (HCC) SOB (shortness of breath) Shortness of breath COPD with chronic bronchitis (HCC) Obstructive chronic bronchitis without exacerbation Hypoxia Hypoxemia Vision loss Unspecified visual loss History of colonic polyps Personal history of colonic polyps Elevated liver enzymes Other nonspecific abnormal serum enzyme levels Vitamin D deficiency Unspecified vitamin D deficiency Asymptomatic postmenopausal status Obesity, Class I, BMI 30-34.9 Obesity, unspecified [facility]* Diagnosis Type 2 diabetes mellitus without complication, without long-term current use of insulin (HCC)- [facility] Lung nodules- Primary Other nonspecific abnormal finding of lung field [facility] Diagnosis Lung nodules Other nonspecific abnormal finding of lung field [facility] Lung nodules- Primary Other nonspecific abnormal finding of lung field Former tobacco use Personal history of tobacco use, presenting hazards to health [facility] Diagnosis Encounter for screening mammogram for breast cancer [facility] Essential hypertension Unspecified essential hypertension [facility] Diagnosis Type 2 diabetes mellitus without complication, without long-term current use of insulin (HCC) [facility]* Diagnosis Pulmonary emphysema, unspecified emphysema type (HCC) Essential hypertension Unspecified essential hypertension Hyperlipidemia, unspecified hyperlipidemia type SOB (shortness of breath) Shortness of breath COPD with chronic bronchitis (HCC) Obstructive chronic bronchitis without exacerbation Type 2 diabetes mellitus without complication, with long-term current use of insulin (HCC) [facility] Diagnosis Asymptomatic postmenopausal status [facility] Diagnosis Encounter for screening mammogram for breast cancer [facility] Diagnosis Pulmonary emphysema, unspecified emphysema type (HCC) SOB (shortness of breath) Shortness of breath COPD with chronic bronchitis (HCC) Obstructive chronic bronchitis without exacerbation [facility] Diagnosis Atrial fibrillation with RVR (HCC)- Primary Atrial fibrillation Primary hypertension Unspecified essential hypertension Lung nodule Solitary pulmonary nodule COPD with chronic bronchitis (HCC) Obstructive chronic bronchitis without exacerbation Fatty liver Other chronic nonalcoholic liver disease Type 2 diabetes mellitus without complication, without long-term current use of insulin (HCC) Obesity, Class I, BMI 30-34.9 Obesity, unspecified [facility] Diagnosis Hyperlipidemia, unspecified hyperlipidemia type [facility]* Diagnosis Multiple lung nodules- Primary Other nonspecific abnormal finding of lung field Encounter for screening for lung cancer Former tobacco use Personal history of tobacco use, presenting hazards to health COPD with chronic bronchitis (HCC) Obstructive chronic bronchitis without exacerbation Acute bronchiolitis due to unspecified organism [facility] Personal history of tobacco use, presenting hazards to health [facility] Diagnosis Lung nodules- Primary Other nonspecific abnormal finding of lung field [facility] Diagnosis Postural dizziness- Primary Dizziness and giddiness Type 2 diabetes mellitus without complication, with long-term current use of insulin (HCC) Blood pressure alteration Other abnormal clinical finding Type 2 diabetes mellitus with hyperglycemia, without long-term current use of insulin ([facility]) Vitamin D deficiency Unspecified vitamin D deficiency [facility]* Diagnosis PVD (peripheral vascular disease) ([facility])- Primary Peripheral vascular disease, unspecified [facility]* Diagnosis Postural dizziness- Primary Dizziness and giddiness Blood pressure alteration Other abnormal clinical finding [facility]* Diagnosis Carotid stenosis, asymptomatic, bilateral- Primary PVD (peripheral vascular disease) ([facility]) Peripheral vascular disease, unspecified Left subclavian artery occlusion [facility] Diagnosis Coronary artery calcification- Primary Coronary atherosclerosis of unspecified type of vessel, [place] or graft Primary hypertension Unspecified essential hypertension Mixed hyperlipidemia Paroxysmal atrial fibrillation (HCC) Atrial fibrillation On apixaban therapy [facility]* Diagnosis Primary hypertension- Primary Unspecified essential hypertension [facility]* Diagnosis Congestive heart failure, unspecified HF chronicity, unspecified heart failure type ([facility]) [facility]* Diagnosis Pulmonary emphysema, unspecified emphysema type (HCC) SOB (shortness of breath) Shortness of breath [facility] Diagnosis PVD (peripheral vascular disease) ([facility])- Primary Peripheral vascular disease, unspecified Carotid stenosis, asymptomatic, bilateral documented in this encounter [facility] note* Diagnosis Essential hypertension Unspecified essential hypertension documented in this encounter [facility] note* Diagnosis Onset Date Resolution Status Acute bronchitis with bronchospasm acute Hypoxia acute [facility] Work Phone: [facility]* Diagnosis Encounter for screening mammogram for breast cancer documented in this encounter [facility] note* Diagnosis Multiple lung nodules- Primary Other nonspecific abnormal finding of lung field Encounter for screening for lung cancer Former tobacco use Personal history of tobacco use, presenting hazards to health documented in this encounter [facility] note* Diagnosis Lung nodules Other nonspecific abnormal finding of lung field documented in this encounter [facility] note* Diagnosis Onset Date Resolution Status Acute bronchitis with bronchospasm acute Hypoxia acute Influenza A acute COPD exacerbation chronic [facility] Work Phone: Evaluation note* Diagnosis Atrial fibrillation with RVR ([facility])- Primary Atrial fibrillation documented in this encounter [facility] note* Diagnosis Moderate COPD (chronic obstructive pulmonary disease) ([facility])- Primary Chronic airway obstruction, not elsewhere classified Former smoker Personal history of tobacco use, presenting hazards to health Class 2 obesity Atelectasis Pulmonary collapse [facility]* Diagnosis Emphysema, unspecified ([facility]) documented in this encounter [facility] note* Diagnosis Essential hypertension- Primary Unspecified essential hypertension Atrial fibrillation with RVR (HCC) Atrial fibrillation PVD (peripheral vascular disease) (HCC) Peripheral vascular disease, unspecified Type 2 diabetes mellitus with hyperglycemia, without long-term current use of insulin (HCC) Lung nodule Solitary pulmonary nodule COPD with chronic bronchitis (HCC) Obstructive chronic bronchitis without exacerbation Chronic anticoagulation Long-term (current) use of anticoagulants Mixed hyperlipidemia documented in this encounter [facility] note* Diagnosis Type 2 diabetes mellitus without complication, without long-term current use of insulin (HCC)- Primary documented in this encounter [facility] note* Diagnosis Type 2 diabetes mellitus without complication, without long-term current use of insulin (HCC)- [facility] Diagnosis Fatty liver- Primary Other chronic nonalcoholic liver disease [facility] Diagnosis COPD with chronic bronchitis (HCC) Obstructive chronic bronchitis without exacerbation documented in this encounter [facility] note* Diagnosis Left subclavian artery occlusion- Primary Carotid stenosis, asymptomatic, bilateral documented in this encounter [facility] note* Diagnosis Chronic atrial fibrillation (HCC)- Primary Atrial fibrillation Type 2 diabetes mellitus without complication, with long-term current use of insulin (HCC) Essential hypertension Unspecified essential hypertension Hyperlipidemia, unspecified hyperlipidemia type Atrial fibrillation with RVR (HCC) Atrial fibrillation Type 2 diabetes mellitus with hyperglycemia, without long-term current use of insulin (HCC) COPD with chronic bronchitis (HCC) Obstructive chronic bronchitis without exacerbation [facility]* Diagnosis Onset Date Resolution Status Admit Date Acidosis, lactic acute September 202024 5:53pm Acute bronchospasm acute September 20, 2024 5:53pm Acute hypoxemic respiratory failure acute September 20, 2024 5:53pm Anemia acute September 20 5:53pm Community acquired pneumonia acute September 20, 2024 5:53pm Elevated troponin acute September 20, 2024 5:53pm Pneumonia acute September 20 5:53pm Signs and symptoms of anemia acute September 20, 2024 5:53pm Symptomatic anemia acute September 20, 2024 5:53pm Type 2 diabetes mellitus wit h hyperglycemia, without long-term current use acute September 5:53pm COPD (chronic obstructive pulmonary disease) chronic September 20, 025 5:53pm HTN (hypertension) chronic September 20, 2024 5:53pm [facility] Work Phone: Reason for referral (narrative)* Outpatient Procedure (Routine) - Authorized Specialty Diagnoses / Procedures Referred By Contac t Referred To Contact [facility] Diagnoses Screening for colon cancer Personal history of colonic polyps Procedures COLONOSCOPY SCREENING COLONOSCOPY FLX DX W/COLLJ SPEC WHEN PFRMD Gris Israel PA-C [address] [place] [address] [facility] [address] [place] [address] Referral ID Status Reason Start Date Expiration Date Visits Requested Visits Authorized [id number] Authorized Auto-Generat ed Referral 04/10/2021 04/10/2022 1 1 [facility] for referral (narrative)* Outpatient Procedure (Routine) - Closed Specialty Diagnoses / Procedures Referred By Angella beckham Referred To Contact [facility] Diagnoses Screening for colon cancer Personal history of colonic polyps Procedures COLONOSCOPY SCREENING COLONOSCOPY FLX DX W/COLLJ SPEC WHEN PFRMD Gris Israel PA-C [address] [place] [address] [facility] [address] [place] [address] Referral ID Status Reason Start Date Expiration Date V isits Requested Visits Authorized [id number] Closed Auto-Generate d Referral 04/10/2021 04/10/2022 1 1 [facility] for referral (narrative)* Diagnostic Procedure Only (Routine) - Pending Review Specialty Diagnoses / Procedures Referred By Angella beckham Referred To Contact [facility] Diagnoses Encounter for screening mammogram for breast cancer Procedures KATINA SCREENING SCREENING MAMMOGRAPHY BI 2-VIEW BREAST INC Rober Yao MD [address] [place] [address] [facility] [address] [place] [address] Referral ID Status Reason Start Date Expiration Date Visits Requested Visits Authorized [id number] Pending Review Auto-Generat ed Referral 02/20/2022 03/22/2023 1 1 [facility] for referral (narrative)* Diagnostic Procedure Only (Routine) - Pending Review Specialty Diagnoses / Procedures Referred By Contjoceline t Referred To Contact [facility] Diagnoses Encounter for screening mammogram for breast cancer Procedures KATINA SCREENING SCREENING MAMMOGRAPHY BI 2-VIEW BREAST INC Rober Yao MD [address] [place] [address] [facility] [address] [place] [address] Referral ID Status Reason Start Date Expiration Date Visits Requested Visits Authorized [id number] Pending Review Auto-Generat ed Referral 01/22/2023 02/21/2024 1 1 [facility] for referral (narrative)* Outpatient Procedure (Routine) - Authorized Specialty Diagnoses / Procedures Referred By Contac t Referred To Contact [facility] Diagnoses Blood pressure alteration Type 2 diabetes mellitus with hyperglycemia, without long-term current use of insulin ([facility]) Procedures US ARM ARTERIAL [facility] DUP-SCAN UXTR ART/ARTL BPGS COMPL BI STUDY Lorenza Vo APRN.DRYING TUNNEL OPERATOR [address] [place] [address] [address] Referral ID Status Reason Start Date Expiration Date Visits Requested Visits Authorized [id number] Authorized Auto-Generat ed Referral 08/08/2023 08/07/2024 1 1 [facility] for referral (narrative)* Outpatient Procedure (Routine) - Authorized Specialty Diagnoses / Procedures Referred By Contac t Referred To Contact [facility] [place] Diagnoses PVD (peripheral vascular disease) ([facility]) Procedures PVR LEG [facility] NON-INVASIVE PHYSIOLOGIC STUDY EXTREMITY 3 Emily Wharton DO [address] [place] [address] [address] Referral ID Status Reason Start Date Expiration Date Visits Requested Visits Authorized [id number] Authorized Auto-Generat ed Referral 09/29/2023 09/28/2024 1 1 * Outpatient Procedure (Routine) - Authorized Specialty Diagnoses / Procedures Referred By Contac t Referred To Contact [facility] Diagnoses Carotid stenosis, asymptomatic, bilateral Left subclavian artery occlusion Procedures US CAROTID ARTERIES [facility] DUPLEX SCAN EXTRACRANIAL ART COMPL BI STUDY Emily Adams, DO [address] [place] [address] [address] Referral ID Status Reason Start Date Expiration Date Visits Requested Visits Authorized [id number] Authorized Auto-Generat ed Referral 09/29/2023 09/28/2024 1 1 [facility] for referral (narrative)* Outpatient Procedure (Routine) - Authorized Specialty Diagnoses / Procedures Referred By Contac t Referred To Contact [facility] Diagnoses PVD (peripheral vascular disease) (HCC) Procedures PVR ANK PRESS [facility] NON-INVAS PHYSIOLOGIC STD EXTREMITY ART 2 LEVEL Emily Adams, DO [address] [place] [address] [address] Referral ID Status Reason Start Date Expiration Date Visits Requested Visits Authorized [id number] Authorized Auto-Generat ed Referral 11/04/2023 11/03/2024 1 1 * Outpatient Procedure (Routine) - Authorized Specialty Diagnoses / Procedures Referred By Contac t Referred To Contact [facility] Diagnoses Carotid stenosis, asymptomatic, bilateral Procedures US CAROTID ARTERIES [facility] DUPLEX SCAN EXTRACRANIAL ART COMPL STUDY Emily Adams, DO [address] [place] [address] [address] Referral ID Status Reason Start Date Expiration Date Visits Requested Visits Authorized [id number] Authorized Auto-Generat ed Referral 11/04/2023 11/03/2024 1 1 [facility] for referral (narrative)* Diagnostic Procedure Only (Routine) - New Request Specialty Diagnoses / Procedures Referred By Contac t Referred To Contact [facility] Diagnoses Encounter for screening mammogram for breast cancer Procedures KATINA SCREENING W RODDY SCREENING DIGITAL BREAST TOMOSYNTHESIS BI SCREENING MAMMOGRAPHY BI 2-VIEW BREAST INC CAD Rober Rubio MD [address] [place] [address] [facility] [address] [place] [address] Referral ID Status Reason Start Date Expiration Date Visits Requested Visits Authorized [id number] New Request Auto-Generat ed Referral 01/21/2024 02/19/2025 1 1 [facility]No reason for referral information [facility] Work Phone: Retdii for visit Narrative* Outpatient Procedure (Routine) - Closed Specialty Diagnoses / Procedures Referred By Angella t Referred To Contact [facility] Diagnoses Screening for colon cancer Personal history of colonic polyps Procedures COLONOSCOPY SCREENING COLONOSCOPY FLX DX W/COLLJ SPEC WHEN PFRMD Gris Israel PA-C [address] [facility] [place] [address] [facility] [address] [place] [address] Referral ID Status Reason Start Date Expiration Date V isits Requested Visits Authorized [id number] Closed Auto-Generate d Referral 04/10/2021 04/10/2022 1 1 [facility] Summary Purpose Family History Relationship Condition Age at Onset Recorded Date/T frankie mother Heart failure Unknown father Heart failure Unknown Advance Directives Documents on File Type Date Recorded Patient Longitudinal Float Operator Expl anation Advance Directive(s) 12/04/2016 9:56 AM Documents on File Type Date Recorded Patient Longitudinal Float Operator Expl anation Advance Directive(s) 12/04/2016 9:56 AM Documents on File Type Date Recorded Patient Longitudinal Float Operator Expl anation Advance Directive(s) 08/27/2021 9:50 AM Advance Directive(s) 12/04/2016 9:56 AM Documents on File Type Date Recorded Patient Longitudinal Float Operator Expl anation Advance Directive(s) 08/27/2021 9:50 AM Advance Directive(s) 12/04/2016 9:56 AM Advance Directive Response Recorded Date/ Time Living Will No Negr[place] 15th, 2 023 4:50pm Power of Senior Unix Administrator No January 31, 2023 4:50pm Advance Directive Response Recorded Date/ Time Do you have a Healthcare Power of Senior Unix Administrator? Yes September 20, 2024 2:40pm Health Concerns Infection Onset Date Last Indicated Resolved Time COVID-19 Rule-Out 01/19/2021 01/18/2021 01/19/2021 1:07 PM EST COVID-19 Rule-Out 07/12/2021 07/12/2021 07/14/2021 10:36 AM EDT Medications Administered Section Inactive Administered Medications - up to 3 most recent administrations Medication Order MAR Action Action Date Dose Rate Site lactated ringers iv infusion 30 mL/hr, INTRAVENOUS, CONTINUOUS, Starting on Fri08/27/21 at 0900, Until Fri08/27/21 at 0946, Preprocedure New Bag/Syringe/Bottle 08/27/2021 9:02 AM EDT 30 mL/hr 30 mL/hr Reason for Referral Specialty Diagnoses / Procedures Referred By Contac t Referred To Contact [facility] Diagnoses Lung nodules Procedures CT LUNG FOLLOWUP WO IVCON DIAGNOSTIC COMPUTED TOMOGRAPHY THORAX W/O CNTRST Becky Matta, SOIL SCIENTIST.DRYING TUNNEL OPERATOR [address] [place] [address] Ct [facility] Referral ID Status Reason Start Date Expiration Date Visits Requested Visits Authorized [id number] Pending Review Auto-Generat ed Referral 01/13/2023 1 1 Referral ID Status Reason Start Date Expiration Date V isits Requested Visits Authorized [id number] Closed Auto-Generate d Referral 12/14/2021 01/13/2023 1 1 Specialty Diagnoses / Procedures Referred By Contac t Referred To Contact CT [facility] Diagnoses Lung nodules Procedures CT LUNG FOLLOWUP WO IVCON DIAGNOSTIC COMPUTED TOMOGRAPHY THORAX W/O CNTRST Martin Benites, SOIL SCIENTIST.DRYING TUNNEL OPERATOR [address] [place] [address] [place] [address] Referral ID Status Reason Start Date Expiration Date Visits Requested Visits Authorized [id number] Pending Review Auto-Generat ed Referral 08/01/2023 08/30/2024 1 1 Specialty Diagnoses / Procedures Referred By Contac t Referred To Contact [facility]ascular Surgery Diagnoses PVD (peripheral vascular disease) (HCC) Procedures CONSULT TO VASCULAR SURGERY OFFICE/OUTPATIENT [facility] 60 MINUTES Rober Rubio MD [address] [place] [address] Referral ID Status Reason Start Date Expiration Date Visits Requested Visits Authorized [id number] Authorized PCP Requested Referral 09/18/2023 09/17/2024 1 1 Specialty Diagnoses / Procedures Referred By Contac t Referred To Contact CT [facility] Diagnoses Encounter for screening for lung cancer Former tobacco use Procedures CT LUNG SCREEN WO IVCON COMPUTED TOMOGRAPHY THORAX LW DOSE LNG CA SCR C- Martin Benites, SOIL SCIENTIST.DRYING TUNNEL OPERATOR [address] [place] [address] [place] [address] Referral ID Status Reason Start Date Expiration Date Visits Requested Visits Authorized [id number] Authorized Auto-Generat ed Referral 03/03/2025 1 1 Chief Complaint and Reason for Visit Chief Complaint BRONCHITIS, BRONCHOS PASM Reason for Visit Acute bronchitis wit h bronchospasm Hypoxia Chief Complaint BRONCHITIS, BRONCHOS PASM BRONCHITIS, BRONCHOSPASM BRONCHITIS, BRONCHOSPASM BRONCHITIS, BRONCHOSPASM BRONCHITIS, BRONCHOSPASM BRONCHITIS, BRONCHOSPASM Reason for Visit Acute bronchitis wit h bronchospasm Hypoxia Influenza A COPD exacerbation Chief Complaint Admit Date PNEUMONIA September 20, 2024 5:5 3pm Reason for Visit Admit Date Acidosis, lactic September 20, 2024 5:5 3pm Acute bronchospasm September 20, 2024 5:5 3pm Acute hypoxemic respiratory failure Augu st 2024 5:53pm Anemia September 20, 2024 5:5 3pm Community acquired pneumonia September 20, 2024 5:53pm Elevated troponin September 20, 2024 5:5 3pm Pneumonia September 20, 2024 5:5 3pm Signs and symptoms of anemia September 20, 2024 5:53pm Symptomatic anemia September 20, 2024 5:5 3pm Type 2 diabetes mellitus wit h hyperglycemia, without long-term current use September 20, 2024 5:53pm COPD (chronic obstructive pulmonary dise ase) September 20, 2024 5:53pm HTN (hypertension) September 20, 2024 5:5 3pm Additional Source Comments INFORMATION SOURCE (unrecogn ized section and content) DATE CREATED AUTHOR 02/02/2020 [facility] DATE CREATED AUTHOR AUTHOR'S ORGANIZ ATION 02/02/2020 [facility] DATE CREATED AUTHOR AUTHOR'S ORGANIZ ATION 02/13/2023 [facility] DATE CREATED AUTHOR AUTHOR'S ORGANIZ ATION 08/01/[address] [facility] DATE CREATED AUTHOR AUTHOR'S ORGANIZ ATION 09/05/2024 [facility] Source Comments (unrecognize d section and content) In the event this informatio n is protected by the Federal Confidentiality of Alcohol and Drug Abuse Patient Records regulations: The Federal rules restrict any use of the information to criminally investigate or prosecute any alcohol or drug abuse patient.[facility] the event this information is protected by the Federal Confidentiality of Alcohol and Drug Abuse Patient Records regulations: The Federal rules restrict any use of the information to criminally investigate or prosecute any alcohol or drug abuse patient.[facility] Hospital[facility] the event this information is protected by the Federal Confidentiality of Alcohol and Drug Abuse Patient Records regulations: The Federal rules restrict any use of the information to criminally investigate or prosecute any alcohol or drug abuse patient.[facility] the event this information is protected by the Federal Confidentiality of Alcohol and Drug Abuse Patient Records regulations: The Federal rules restrict any use of the information to criminally investigate or prosecute any alcohol or drug abuse patient.[facility] the event this information is protected by the Federal Confidentiality of Alcohol and Drug Abuse Patient Records regulations: The Federal rules restrict any use of the information to criminally investigate or prosecute any alcohol or drug abuse patient.[facility]In the event this information is protected by the Federal Confidentiality of Alcohol and Drug Abuse Patient Records regulations: The Federal rules restrict any use of the information to criminally investigate or prosecute any alcohol or drug abuse patient.[facility] HospitalIn the event this information is protected by the Federal Confidentiality of Alcohol and Drug Abuse Patient Records regulations: The Federal rules restrict any use of the information to criminally investigate or prosecute any alcohol or drug abuse patient.[facility] HospitalIn the event this information is protected by the Federal Confidentiality of Alcohol and Drug Abuse Patient Records regulations: The Federal rules restrict any use of the information to criminally investigate or prosecute any alcohol or drug abuse patient.[facility] HospitalIn the event this information is protected by the Federal Confidentiality of Alcohol and Drug Abuse Patient Records regulations: The Federal rules restrict any use of the information to criminally investigate or prosecute any alcohol or drug abuse patient.[facility] Hospital[facility] the event this information is protected by the Federal Confidentiality of Alcohol and Drug Abuse Patient Records regulations: The Federal rules restrict any use of the information to criminally investigate or prosecute any alcohol or drug abuse patient.[facility] HospitalIn the event this information is protected by the Federal Confidentiality of Alcohol and Drug Abuse Patient Records regulations: The Federal rules restrict any use of the information to criminally investigate or prosecute any alcohol or drug abuse patient.[facility] HospitalIn the event this information is protected by the Federal Confidentiality of Alcohol and Drug Abuse Patient Records regulations: The Federal rules restrict any use of the information to criminally investigate or prosecute any alcohol or drug abuse patient.[facility] HospitalIn the event this information is protected by the Federal Confidentiality of Alcohol and Drug Abuse Patient Records regulations: The Federal rules restrict any use of the information to criminally investigate or prosecute any alcohol or drug abuse patient.[facility] HospitalIn the event this information is protected by the Federal Confidentiality of Alcohol and Drug Abuse Patient Records regulations: The Federal rules restrict any use of the information to criminally investigate or prosecute any alcohol or drug abuse patient.[facility] HospitalIn the event this information is protected by the Federal Confidentiality of Alcohol and Drug Abuse Patient Records regulations: The Federal rules restrict any use of the information to criminally investigate or prosecute any alcohol or drug abuse patient.[facility] HospitalIn the event this information is protected by the Federal Confidentiality of Alcohol and Drug Abuse Patient Records regulations: The Federal rules restrict any use of the information to criminally investigate or prosecute any alcohol or drug abuse patient.[facility] HospitalIn the event this information is protected by the Federal Confidentiality of Alcohol and Drug Abuse Patient Records regulations: The Federal rules restrict any use of the information to criminally investigate or prosecute any alcohol or drug abuse patient.[facility] HospitalIn the event this information is protected by the Federal Confidentiality of Alcohol and Drug Abuse Patient Records regulations: The Federal rules restrict any use of the information to criminally investigate or prosecute any alcohol or drug abuse patient.[facility] HospitalIn the event this information is protected by the Federal Confidentiality of Alcohol and Drug Abuse Patient Records regulations: The Federal rules restrict any use of the information to criminally investigate or prosecute any alcohol or drug abuse patient.[facility] HospitalIn the event this information is protected by the Federal Confidentiality of Alcohol and Drug Abuse Patient Records regulations: The Federal rules restrict any use of the information to criminally investigate or prosecute any alcohol or drug abuse patient.[facility] HospitalIn the event this information is protected by the Federal Confidentiality of Alcohol and Drug Abuse Patient Records regulations: The Federal rules restrict any use of the information to criminally investigate or prosecute any alcohol or drug abuse patient.[facility] HospitalIn the event this information is protected by the Federal Confidentiality of Alcohol and Drug Abuse Patient Records regulations: The Federal rules restrict any use of the information to criminally investigate or prosecute any alcohol or drug abuse patient.[facility] HospitalIn the event this information is protected by the Federal Confidentiality of Alcohol and Drug Abuse Patient Records regulations: The Federal rules restrict any use of the information to criminally investigate or prosecute any alcohol or drug abuse patient.[facility] HospitalIn the event this information is protected by the Federal Confidentiality of Alcohol and Drug Abuse Patient Records regulations: The Federal rules restrict any use of the information to criminally investigate or prosecute any alcohol or drug abuse patient.[facility] HospitalIn the event this information is protected by the Federal Confidentiality of Alcohol and Drug Abuse Patient Records regulations: The Federal rules restrict any use of the information to criminally investigate or prosecute any alcohol or drug abuse patient.[facility] HospitalIn the event this information is protected by the Federal Confidentiality of Alcohol and Drug Abuse Patient Records regulations: The Federal rules restrict any use of the information to criminally investigate or prosecute any alcohol or drug abuse patient.[facility] HospitalIn the event this information is protected by the Federal Confidentiality of Alcohol and Drug Abuse Patient Records regulations: The Federal rules restrict any use of the information to criminally investigate or prosecute any alcohol or drug abuse patient.[facility] HospitalIn the event this information is protected by the Federal Confidentiality of Alcohol and Drug Abuse Patient Records regulations: The Federal rules restrict any use of the information to criminally investigate or prosecute any alcohol or drug abuse patient.[facility] HospitalIn the event this information is protected by the Federal Confidentiality of Alcohol and Drug Abuse Patient Records regulations: The Federal rules restrict any use of the information to criminally investigate or prosecute any alcohol or drug abuse patient.[facility] HospitalIn the event this information is protected by the Federal Confidentiality of Alcohol and Drug Abuse Patient Records regulations: The Federal rules restrict any use of the information to criminally investigate or prosecute any alcohol or drug abuse patient.[facility] HospitalIn the event this information is protected by the Federal Confidentiality of Alcohol and Drug Abuse Patient Records regulations: The Federal rules restrict any use of the information to criminally investigate or prosecute any alcohol or drug abuse patient.[facility] HospitalIn the event this information is protected by the Federal Confidentiality of Alcohol and Drug Abuse Patient Records regulations: The Federal rules restrict any use of the information to criminally investigate or prosecute any alcohol or drug abuse patient.[facility] HospitalIn the event this information is protected by the Federal Confidentiality of Alcohol and Drug Abuse Patient Records regulations: The Federal rules restrict any use of the information to criminally investigate or prosecute any alcohol or drug abuse patient.[facility] HospitalIn the event this information is protected by the Federal Confidentiality of Alcohol and Drug Abuse Patient Records regulations: The Federal rules restrict any use of the information to criminally investigate or prosecute any alcohol or drug abuse patient.[facility] HospitalIn the event this information is protected by the Federal Confidentiality of Alcohol and Drug Abuse Patient Records regulations: The Federal rules restrict any use of the information to criminally investigate or prosecute any alcohol or drug abuse patient.[facility] HospitalIn the event this information is protected by the Federal Confidentiality of Alcohol and Drug Abuse Patient Records regulations: The Federal rules restrict any use of the information to criminally investigate or prosecute any alcohol or drug abuse patient.[facility] HospitalIn the event this information is protected by the Federal Confidentiality of Alcohol and Drug Abuse Patient Records regulations: The Federal rules restrict any use of the information to criminally investigate or prosecute any alcohol or drug abuse patient.[facility] HospitalIn the event this information is protected by the Federal Confidentiality of Alcohol and Drug Abuse Patient Records regulations: The Federal rules restrict any use of the information to criminally investigate or prosecute any alcohol or drug abuse patient.[facility] HospitalIn the event this information is protected by the Federal Confidentiality of Alcohol and Drug Abuse Patient Records regulations: The Federal rules restrict any use of the information to criminally investigate or prosecute any alcohol or drug abuse patient.[facility] HospitalIn the event this information is protected by the Federal Confidentiality of Alcohol and Drug Abuse Patient Records regulations: The Federal rules restrict any use of the information to criminally investigate or prosecute any alcohol or drug abuse patient.[facility] HospitalIn the event this information is protected by the Federal Confidentiality of Alcohol and Drug Abuse Patient Records regulations: The Federal rules restrict any use of the information to criminally investigate or prosecute any alcohol or drug abuse patient.[facility] HospitalIn the event this information is protected by the Federal Confidentiality of Alcohol and Drug Abuse Patient Records regulations: The Federal rules restrict any use of the information to criminally investigate or prosecute any alcohol or drug abuse patient.[facility] HospitalIn the event this information is protected by the Federal Confidentiality of Alcohol and Drug Abuse Patient Records regulations: The Federal rules restrict any use of the information to criminally investigate or prosecute any alcohol or drug abuse patient.[facility] HospitalIn the event this information is protected by the Federal Confidentiality of Alcohol and Drug Abuse Patient Records regulations: The Federal rules restrict any use of the information to criminally investigate or prosecute any alcohol or drug abuse patient.[facility] HospitalIn the event this information is protected by the Federal Confidentiality of Alcohol and Drug Abuse Patient Records regulations: The Federal rules restrict any use of the information to criminally investigate or prosecute any alcohol or drug abuse patient.[facility] HospitalIn the event this information is protected by the Federal Confidentiality of Alcohol and Drug Abuse Patient Records regulations: The Federal rules restrict any use of the information to criminally investigate or prosecute any alcohol or drug abuse patient.[facility] HospitalIn the event this information is protected by the Federal Confidentiality of Alcohol and Drug Abuse Patient Records regulations: The Federal rules restrict any use of the information to criminally investigate or prosecute any alcohol or drug abuse patient.[facility] HospitalIn the event this information is protected by the Federal Confidentiality of Alcohol and Drug Abuse Patient Records regulations: The Federal rules restrict any use of the information to criminally investigate or prosecute any alcohol or drug abuse patient.[facility] HospitalIn the event this information is protected by the Federal Confidentiality of Alcohol and Drug Abuse Patient Records regulations: The Federal rules restrict any use of the information to criminally investigate or prosecute any alcohol or drug abuse patient.[facility] HospitalIn the event this information is protected by the Federal Confidentiality of Alcohol and Drug Abuse Patient Records regulations: The Federal rules restrict any use of the information to criminally investigate or prosecute any alcohol or drug abuse patient.[facility] HospitalIn the event this information is protected by the Federal Confidentiality of Alcohol and Drug Abuse Patient Records regulations: The Federal rules restrict any use of the information to criminally investigate or prosecute any alcohol or drug abuse patient.[facility] HospitalIn the event this information is protected by the Federal Confidentiality of Alcohol and Drug Abuse Patient Records regulations: The Federal rules restrict any use of the information to criminally investigate or prosecute any alcohol or drug abuse patient.[facility] HospitalIn the event this information is protected by the Federal Confidentiality of Alcohol and Drug Abuse Patient Records regulations: The Federal rules restrict any use of the information to criminally investigate or prosecute any alcohol or drug abuse patient.[facility] HospitalIn the event this information is protected by the Federal Confidentiality of Alcohol and Drug Abuse Patient Records regulations: The Federal rules restrict any use of the information to criminally investigate or prosecute any alcohol or drug abuse patient.[facility] HospitalIn the event this information is protected by the Federal Confidentiality of Alcohol and Drug Abuse Patient Records regulations: The Federal rules restrict any use of the information to criminally investigate or prosecute any alcohol or drug abuse patient.[facility] HospitalIn the event this information is protected by the Federal Confidentiality of Alcohol and Drug Abuse Patient Records regulations: The Federal rules restrict any use of the information to criminally investigate or prosecute any alcohol or drug abuse patient.[facility] HospitalIn the event this information is protected by the Federal Confidentiality of Alcohol and Drug Abuse Patient Records regulations: The Federal rules restrict any use of the information to criminally investigate or prosecute any alcohol or drug abuse patient.[facility] HospitalIn the event this information is protected by the Federal Confidentiality of Alcohol and Drug Abuse Patient Records regulations: The Federal rules restrict any use of the information to criminally investigate or prosecute any alcohol or drug abuse patient.[facility] HospitalIn the event this information is protected by the Federal Confidentiality of Alcohol and Drug Abuse Patient Records regulations: The Federal rules restrict any use of the information to criminally investigate or prosecute any alcohol or drug abuse patient.[facility] HospitalIn the event this information is protected by the Federal Confidentiality of Alcohol and Drug Abuse Patient Records regulations: The Federal rules restrict any use of the information to criminally investigate or prosecute any alcohol or drug abuse patient.[facility] HospitalIn the event this information is protected by the Federal Confidentiality of Alcohol and Drug Abuse Patient Records regulations: The Federal rules restrict any use of the information to criminally investigate or prosecute any alcohol or drug abuse patient.[facility] HospitalIn the event this information is protected by the Federal Confidentiality of Alcohol and Drug Abuse Patient Records regulations: The Federal rules restrict any use of the information to criminally investigate or prosecute any alcohol or drug abuse patient.[facility] Reason for Visit (unrecogniz ed section and content) Reason Onset Date Comments Refill Request 06/13/2021 Reason Comments Consult Specialty Diagnoses / Procedures Referred By Contac t Referred To Contact Cardiology Diagnoses Coronary artery calcification Aortic valve calcification Procedures CONSULT TO CARDIOLOGY OFFICE/OUTPATIENT [facility] 60-74 MINUTES Lorenza Vo, SOIL SCIENTIST.DRYING TUNNEL OPERATOR [address] [place] [address] Referral ID Status Reason Start Date Expiration Date V isits Requested Visits Authorized [id number] Closed PCP Requested Referral 04/10/2021 04/10/2022 1 1 Reason Comments 08-27-2021 Colon [place] Reason Onset Date Comments Refill Request 07/03/2021 Reason Comments Orders Reason Comments Appointment Reason Comments Procedure Follow Up 08/27/21 colonoscopy Reason Comments No Show Reason Comments Refill Request Reason Comments Missed Appointment results Reason Comments Medicare Wellness Exam Specialty Diagnoses / Procedures Referred By Contac t Referred To Contact CT IMAGING Diagnoses Lung nodules Procedures CT LUNG FOLLOWUP WO IVCON DIAGNOSTIC COMPUTED TOMOGRAPHY THORAX W/O BALAT Becky Matta, SOIL SCIENTIST.DRYING TUNNEL OPERATOR [address] [place] [address] Ct Imaging Referral ID Status Reason Start Date Expiration Date V isits Requested Visits Authorized [id number] Closed Auto-Generate d Referral 12/14/2021 01/13/2023 1 1 Reason Comments Counseling Nodule Reason Onset Date Comments Refill Request 03/18/2022 Reason Onset Date Comments Population Health Navigation Outreach 06/17/2022 ANNUAL MEDICARE WELLNESS Reason Onset Date Comments Refill Request 10/07/2022 Reason Comments Results Reason Onset Date Comments Refill Request 06/19/2023 Reason Comments Follow Up Reason Comments New Consult - LCS Reason Comments Radiology CT Specialty Diagnoses / Procedures Referred By Contac t Referred To Contact CT IMAGING Diagnoses Personal history of tobacco use, presenting hazards to health Procedures CT LUNG SCREEN WO IVCON COMPUTED TOMOGRAPHY THORAX LW DOSE LNG CA Gris Turner, SOIL SCIENTIST.DRYING TUNNEL OPERATOR [id number] Imaging [place] [address] Referral ID Status Reason Start Date Expiration Date V isits Requested Visits Authorized [id number] Closed Auto-Generate d Referral 12/19/2022 01/18/2024 1 1 Reason Comments Recheck 2 week follow up Reason Comments Results Reason Comments Recheck 1 month follow up Reason Comments New Patient Specialty Diagnoses / Procedures Referred By Contac t Referred To Contact Vascular Surgery Diagnoses PVD (peripheral vascular disease) (HCC) Procedures CONSULT TO VASCULAR SURGERY OFFICE/OUTPATIENT NEW HIGH MDM 60 MINUTES Rober Rubio MD [address] [place] [address] Referral ID Status Reason Start Date Expiration Date V isits Requested Visits Authorized [id number] Closed PCP Requested Referral 09/18/2023 09/17/2024 1 1 Reason Comments New Patient [facility] 02/01/24 RSVRight Arm BP always Higher than Left Arm BP Seeing Vascular Reason Comments Med Change Request Reason Comments medication information Reason Onset Date Comments Refill Request 10/30/2023 Reason Comments Established Patient Reason Onset Date Comments Refill Request 12/23/2023 Reason Comments Established Patient 6 month follow up Specialty Diagnoses / Procedures Referred By Contac t Referred To Contact CT IMAGING Diagnoses Lung nodules Procedures CT LUNG FOLLOWUP WO IVCON DIAGNOSTIC COMPUTED TOMOGRAPHY THORAX W/O Martin Noble, SOIL SCIENTIST.DRYING TUNNEL OPERATOR [id number] Imaging [place] [address] Referral ID Status Reason Start Date Expiration Date V isits Requested Visits Authorized [id number] Closed Auto-Generate d Referral 08/01/2023 08/30/2024 1 1 Reason Comments COPD Reason Comments 6 Month Exam Reason Onset Date Comments Population Health Navigation Outreach 04/28/2024 [facility] Reason Onset Date Comments Population Health Navigation Outreach 06/28/2024 ACO, High Risk Reason Comments Established Patient Reason Onset Date Comments Population Health Navigation Outreach 08/25/2024 [facility] Care Teams (unrecognized sec tion and content) Agile Coach Relationship Specialty Start Date End Date Rober Rubio MD [address] [facility] [place] [address] PCP - General Family Practice 12/27/11 Bryson Mariee [facility] [address] [facility] [place] [address] Pharmacist Pharmacy 01/31/21 Agile Coach Relationship Specialty Start Date End Date Rober Rubio MD [address] [facility] [place] [address] PCP - General Family Practice 12/27/11 [facility] [address] [facility] [place] [address] Pharmacist Pharmacy 01/31/21 Agile Coach Relationship Specialty Start Date End Date Rober Rubio MD [address] [facility] [place] [address] PCP - General Family Practice 12/27/11 [facility] [address] [facility] [place] [address] Pharmacist Pharmacy 01/31/21 Agile Coach Relationship Specialty Start Date End Date Rober Rubio MD [address] [facility] [place] [address] PCP - General Family Practice 12/27/11 Bryson Mariee [facility] [address] [facility] [place] [address] Pharmacist Pharmacy 01/31/21 Agile Coach Relationship Specialty Start Date End Date Rober Rubio MD [address] [facility] [place] [address] PCP - General Family Practice 12/27/11 Bryson Mariee, [facility] [address] [facility] [place] [address] Pharmacist Pharmacy 01/31/21 Agile Coach Relationship Specialty Start Date End Date Rober Rubio MD [address] [facility] [place] [address] PCP - General Family Practice 12/27/11 Bryson Mariee, [facility] [address] [facility] [place] [address] Pharmacist Pharmacy 01/31/21 Agile Coach Relationship Specialty Start Date End Date Rober Rubio MD [address] [facility] [place] [address] PCP - General Family Practice 12/27/11 Bryson Mariee, [facility] [address] [facility] [place] [address] Pharmacist Pharmacy 01/31/21 Agile Coach Relationship Specialty Start Date End Date Rober Rubio MD [address] [facility] [place] [address] PCP - General Family Practice 12/27/11 Bryson Mariee, [facility] [address] [facility] [place] [address] Pharmacist Pharmacy 01/31/21 Agile Coach Relationship Specialty Start Date End Date Rober Rubio MD [address] [facility] [place] [address] PCP - General Family Practice 12/27/11 Bryson Mariee, [facility] [address] [facility] [place] [address] Pharmacist Pharmacy 01/31/21 Rm Lo MD [address] [place] [address] Surgeon General Surgery 08/17/21 Agile Coach Relationship Specialty Start Date End Date Rober Rubio MD [address] [place] [address] PCP - General Family Medicine 12/27/11 [facility] [address] [place] [address] Pharmacist Pharmacy 01/31/21 Rm Lo MD [address] [place] [address] Surgeon General Surgery 08/17/21 Agile Coach Relationship Specialty Start Date End Date Rober Rubio MD [address] [place] [address] PCP - General Family Medicine 12/27/11 [facility] [address] [place] [address] Pharmacist Pharmacy 01/31/21 Rm Lo MD [address] [place] [address] Surgeon General Surgery 08/17/21 Agile Coach Relationship Specialty Start Date End Date Rober Rubio MD [address] [place] [address] PCP - General Family Medicine 12/27/11 [facility] [address] [place] [address] Pharmacist Pharmacy 01/31/21 Rm Lo MD [address] [place] [address] Surgeon General Surgery 08/17/21 Agile Coach Relationship Specialty Start Date End Date Rober Rubio MD [address] [place] [address] PCP - General Family Medicine 12/27/11 [facility] [address] [place] [address] Pharmacist Pharmacy 01/31/21 Rm Lo MD [address] [place] [address] Surgeon General Surgery 08/17/21 Agile Coach Relationship Specialty Start Date End Date Rober Rubio MD [address] [place] [address] PCP - General Family Medicine 12/27/11 [facility] [address] [place] [address] Pharmacist Pharmacy 01/31/21 Rm Lo MD [address] [place] [address] Surgeon General Surgery 08/17/21 Agile Coach Relationship Specialty Start Date End Date Rober Rubio MD [address] [place] [address] PCP - General Family Medicine 12/27/11 [facility] [address] [place] [address] Pharmacist Pharmacy 01/31/21 Rm Lo MD [address] [place] [address] Surgeon General Surgery 08/17/21 Agile Coach Relationship Specialty Start Date End Date Rober Rubio MD [address] [place] [address] PCP - General Family Medicine 12/27/11 [facility] [address] [place] [address] Pharmacist Pharmacy 01/31/21 Rm Lo MD [address] [place] [address] Surgeon General Surgery 08/17/21 Agile Coach Relationship Specialty Start Date End Date Rober Rubio MD [address] [place] [address] PCP - General Family Medicine 12/27/11 [facility] [address] [place] [address] Pharmacist Pharmacy 01/31/21 Rm Lo MD [address] [place] [address] Surgeon General Surgery 08/17/21 Agile Coach Relationship Specialty Start Date End Date Rober Rubio MD [address] [place] [address] PCP - General Family Medicine 12/27/11 [facility] [address] [place] [address] Pharmacist Pharmacy 01/31/21 Rm Lo MD [address] [place] [address] Surgeon General Surgery 08/17/21 Agile Coach Relationship Specialty Start Date End Date Rober Rubio MD [address] [place] [address] PCP - General Family Medicine 12/27/11 [facility] [address] [place] [address] Pharmacist Pharmacy 01/31/21 Rm Lo MD [address] [place] [address] Surgeon General Surgery 08/17/21 Agile Coach Relationship Specialty Start Date End Date Rober Rubio MD [address] [place] [address] PCP - General Family Medicine 12/27/11 [facility] [address] [place] [address] Pharmacist Pharmacy 01/31/21 Rm Lo MD [address] [place] [address] Surgeon General Surgery 08/17/21 Agile Coach Relationship Specialty Start Date End Date Rober Rubio MD [address] [place] [address] PCP - General Family Medicine 12/27/11 Rm Lo MD [address] [place] [address] Surgeon General Surgery 08/17/21 Agile Coach Relationship Specialty Start Date End Date Rober Rubio MD [address] [place] [address] PCP - General Family Medicine 12/27/11 Rm Lo MD [address] [place] [address] Surgeon General Surgery 08/17/21 Agile Coach Relationship Specialty Start Date End Date Rober Rubio MD [address] [place] [address] PCP - General Family Medicine 12/27/11 Rm Lo MD [address] [place] [address] Surgeon General Surgery 08/17/21 Agile Coach Relationship Specialty Start Date End Date Rober Rubio MD [address] [place] [address] PCP - General Family Medicine 12/27/11 Rm Lo MD [address] [place] [address] Surgeon General Surgery 08/17/21 Agile Coach Relationship Specialty Start Date End Date Rober Rubio MD [address] [place] [address] PCP - General Family Medicine 12/27/11 Rm Lo MD [address] [place] [address] Surgeon General Surgery 08/17/21 Agile Coach Relationship Specialty Start Date End Date Rober Rubio MD [address] [place] [place] [address] PCP - General Family Medicine 12/27/11 Rm Lo MD [address] [place] [address] Surgeon General Surgery 08/17/21 Agile Coach Relationship Specialty Start Date End Date Rober Rubio MD [address] [facility] [place] [address] PCP - General Family Medicine 12/27/11 Rm Lo MD [address] [place] [address] Surgeon General Surgery 08/17/21 Agile Coach Relationship Specialty Start Date End Date Rober Rubio MD [address] [facility] [place] [address] PCP - General Family Medicine 12/27/11 Rm Lo MD [address] [place] [address] Surgeon General Surgery 08/17/21 Agile Coach Relationship Specialty Start Date End Date Rober Rubio MD [address] [facility] [place] [address] PCP - General Family Medicine 12/27/11 Rm Lo MD [address] [place] [address] Surgeon General Surgery 08/17/21 Agile Coach Relationship Specialty Start Date End Date Rober Rubio MD [address] [place] [address] PCP - General Family Medicine 12/27/11 Rm Lo MD [address] [place] [address] Surgeon General Surgery 08/17/21 Agile Coach Relationship Specialty Start Date End Date Rober Rubio MD [address] [place] [address] PCP - General Family Medicine 12/27/11 Rm Lo MD [address] [place] [address] Surgeon General Surgery 08/17/21 Agile Coach Relationship Specialty Start Date End Date Rober Rubio MD [address] [place] [address] PCP - General Family Medicine 12/27/11 Rm Lo MD [address] [place] [address] Surgeon General Surgery 08/17/21 Agile Coach Relationship Specialty Start Date End Date Rober Rubio MD [address] [place] [address] PCP - General Family Medicine 12/27/11 Rm Lo MD [address] [place] [address] Surgeon General Surgery 08/17/21 Agile Coach Relationship Specialty Start Date End Date Rober Rubio MD [address] [facility] [place] [address] PCP - General Family Medicine 12/27/11 Rm Lo MD [address] [place] [address] Surgeon General Surgery 08/17/21 Agile Coach Relationship Specialty Start Date End Date Rober Rubio MD [address] [place] [address] PCP - General Family Medicine 12/27/11 Rm Lo MD [address] [place] [address] Surgeon General Surgery 08/17/21 Agile Coach Relationship Specialty Start Date End Date Rober Rubio MD [address] [place] [address] PCP - General Family Medicine 12/27/11 Agile Coach Relationship Specialty Start Date End Date Rober Rubio MD [address] [place] [address] PCP - General Family Medicine 12/27/11 Rm Lo MD [address] [place], [place] [address] Surgeon General Surgery 08/17/21 Team Status: Active Member Role Status Dates Dr. Rober Rubio MD Family Provider Active Dr. Rober Rubio MD Primary Care Provider Active Team Status: Active Member Role Status Dates Dr. Stevo Alcantara DO Emergency Provider Active Dr. Rober Rubio MD Primary Care Provider Active Dr. Deborah Barron MD Admit Provider, Attending Provid er Active Agile Coach Relationship Specialty Start Date End Date Rober Rubio MD [address] [place] [address] PCP - General Family Medicine 12/27/11 Rm Lo MD [address] [place], [place] [address] Surgeon General Surgery 08/17/21 Lorenza Vo APRN.DRYING TUNNEL OPERATOR [address] [facility] [place] [address] [facility] 01/[facility]/24 Shantell Marroquin APRN.DRYING TUNNEL OPERATOR [address] [place] [address] [facility] 01/26/24 Agile Coach Relationship Specialty Start Date End Date Rober Rubio MD [address] [place] [address] PCP - General Family Medicine 12/27/11 Rm Lo MD [address] [place] [address] Surgeon General Surgery 08/17/21 Lorenza Vo APRN.DRYING TUNNEL OPERATOR [address] [place] [address] [facility] 01/26/24 Shantell Marroquin APRN.DRYING TUNNEL OPERATOR [address] [place] [address] [facility] 01/26/24 Agile Coach Relationship Specialty Start Date End Date Rober Rubio MD [address] [place] [address] PCP - General Family Medicine 12/27/11 Rm Lo MD [address] [place] [address] Surgeon General Surgery 08/17/21 Lorenza Vo APRN.DRYING TUNNEL OPERATOR [address] [place] [address] [facility] 01/26/24 LopezShantell AugustaROSANAN.DRYING TUNNEL OPERATOR [address] [place], [place] [address] [facility] 01/26/24 Team Status: Active Member Role Status Dates Dr. Stevo Alcantara DO Emergency Provider Active Dr. Rober Rubio MD Primary Care Provider Active Dr. Deborah Barron MD Admit Provider, Other Provider A ctive Dr. Karen Mendez MD Attending Provider Active Team Status: Active Member Role Status Dates Dr. Stevo Alcantara DO Emergency Provider Active Dr. Rober Rubio MD Primary Care Provider Active Dr. Deborah Barron MD Admit Provider, Other Provider A ctive Dr. Maurizio Wells , DO Attending Provider, Other Provider Active Team Status: Active Member Role Status Dates Dr. Stevo Alcantara DO Emergency Provider Active Dr. Rober Rubio MD Primary Care Provider Active Dr. Deborah Barron MD Admit Provider Active Dr. Meng Wells MD Other Provider Active Dr. Maurizio Wells , Other Provider Active Dr. Hari Iniguez , Attending Provider, Other Provid er Active Team Status: Active Member Role Status Dates Dr. Rober Rubio MD Primary Care Provider Active Dr. Milagros Cochran MD Attending Provider Active Team Status: Inactive Member Role Status Dates Dr. Stevo Alcantara DO Emergency Provider Active Dr. Rober Rubio MD Primary Care Provider Active Dr. Deborah Barron MD Admit Provider Active Dr. Meng Wells MD Other Provider Active Dr. Maurizio Wells , Other Provider Active Dr. Hari Iniguez DO Attending Provider Active Agile Coach Relationship Specialty Start Date End Date Rober Rubio MD [address] [place] [address] PCP - General Family Medicine 12/27/11 Rm Lo MD [address] [place], [place] [id number] Surgeon General Surgery 08/17/21 Lorenza Vo APRN.DRYING TUNNEL OPERATOR [address] [place] [address] [facility] 01/26/24 Shantell Marroquin APRN.DRYING TUNNEL OPERATOR [address] [place] [address] [facility] 01[facility] Agile Coach Relationship Specialty Start Date End Date Rober Rubio MD [address] [place] [address] PCP - General Family Medicine 12/27/11 Rm Lo MD [address] [place] [address] Surgeon General Surgery 08/17/21 Lorenza Vo APRN.DRYING TUNNEL OPERATOR [address] [place] [address] [facility] 01/26/24 Shantell Marroquin APRN.DRYING TUNNEL OPERATOR [address] [place] [address] [facility] 01/26/24 Agile Coach Relationship Specialty Start Date End Date Rober Rubio MD [address] [place] [address] PCP - General Family Medicine 12/27/11 Rm Lo MD [address] [place] [address] Surgeon General Surgery 08/17/21 Lorenza Vo APRN.DRYING TUNNEL OPERATOR [address] [place] [address] [facility] 01/26/24 Shantell Marroquin APRN.DRYING TUNNEL OPERATOR [address] [place] [address] [facility] 01/26/24 Agile Coach Relationship Specialty Start Date End Date Rober Rubio MD [address] [place] [address] PCP - General Family Medicine 12/27/11 Rm Lo MD [address] [place] [address] Surgeon General Surgery 08/17/21 Lorenza Vo APRN.DRYING TUNNEL OPERATOR [address] [place] [address] [facility] 01/26/24 Shantell Marroquin APRN.DRYING TUNNEL OPERATOR [address] [place] [address] [facility] 01/26/24 Agile Coach Relationship Specialty Start Date End Date Rober Rubio MD [address] [place] [address] PCP - General Family Medicine 12/27/11 Rm Lo MD [address] [place] [address] Surgeon General Surgery 08/17/21 Lorenza Vo APRN.DRYING TUNNEL OPERATOR [address] [place] [address] [facility] 01/26/24 Shantell Marroquin APRN.DRYING TUNNEL OPERATOR [address] [place] [address] [facility] 01/26/24 Agile Coach Relationship Specialty Start Date End Date Rober Rubio MD [address] [place] [address] PCP - General Family Medicine 12/27/11 Rm Lo MD [address] [place] [address] Surgeon General Surgery 08/17/21 Lorenza Vo APRN.DRYING TUNNEL OPERATOR [address] [place] [address] [facility] 01/26/24 Shantell Marroquin APRN.DRYING TUNNEL OPERATOR [address] [place] [address] [facility] 01/26/24 Agile Coach Relationship Specialty Start Date End Date Rober Rubio MD [address] [place] [address] PCP - General Family Medicine 12/27/11 Rm Lo MD [address] [place] [address] Surgeon General Surgery 08/17/21 Lorenza Vo APRN.DRYING TUNNEL OPERATOR [address] [place] [place] [address] [facility] 01/26/24 Shantell Marroquin APRN.DRYING TUNNEL OPERATOR [address] [place] [address] [facility] 01/26/24 Agile Coach Relationship Specialty Start Date End Date Rober Rubio MD [address] [place] [address] PCP - General Family Medicine 12/27/11 Rm Lo MD [address] [place] [address] Surgeon General Surgery 08/17/21 Lorenza Vo APRN.DRYING TUNNEL OPERATOR [address] [place] [place] [address] [facility] 01/26/24 Shantell Marroquin APRN.DRYING TUNNEL OPERATOR [address] [place] [address] [facility] 01/26/24 Agile Coach Relationship Specialty Start Date End Date Rober Rubio MD [address] [place] [address] PCP - General Family Medicine 12/27/11 Rm Lo MD [address] [place] [address] Surgeon General Surgery 08/17/21 Lorenza Vo APRN.DRYING TUNNEL OPERATOR [address] [place] [place] [address] [facility] 01/26/24 Shantell Marroquin APRN.DRYING TUNNEL OPERATOR [address] [facility] [place] [address] Instructor [facility] 01/26/24 Agile Coach Relationship Specialty Start Date End Date Rober Rubio MD [address] [place] [address] PCP - General Family Medicine 12/27/11 Rm Lo MD [address] [place] [address] Surgeon General Surgery 08/17/21 Lorenza Vo APRN.DRYING TUNNEL OPERATOR [address] [place] [address] [facility] 01/26/24 Shantell Marroquin APRN.DRYING TUNNEL OPERATOR [address] [place] [address] [facility] 01/26/24 Agile Coach Relationship Specialty Start Date End Date Rober Rubio MD [address] [place] [address] PCP - General Family Medicine 12/27/11 Rm Lo MD [address] [place] [address] Surgeon General Surgery 08/17/21 Lorenza Vo SOIL SCIENTIST.DRYING TUNNEL OPERATOR [address] [place] [address] [facility] 01/26/24 Shantell Marroquin APRN.DRYING TUNNEL OPERATOR [address] [place] [address] [facility] 01/[facility]/24 Team Status: Active Member Role/Relationship Status Dates Dr. Rober Rubio MD Primary Care Provider Active Team Status: Active Member Role/Relationship Status Dates Dr. Rober Rubio MD Primary Care Provider Active Start: September 20, 2024 Dr. Joshua Castañeda MD Referring Provider Active Sta rt: September 20, 2024 Dr. Joshua Castañeda MD Emergency Provider Active Sta rt: September 20, 2024 Dr. Hari Iniguez DO Admit Provider Active Star t: September 20, 2024 Dr. Hari Iniguez DO Attending Provider Active Start: September 20, 2024 Goals (unrecognized section and content) Goals may be documented in a n alternate sectionGoals may be documented in an alternate section FOR RECORDS PERTAINING TO PATIENTS WHO ARE OR HAVE BEEN ENROLLED IN A CHEMICAL DEPENDENCY/SUBSTANCEABUSE PROGRAM, SOME INFORMATION MAY BE OMITTED. This clinical summary was aggregated from multiple sources. Caution should be exercised in using it in the provision of clinical care. This summary normalizes information from multiple sources, and as a consequence, information in this document may materially change the coding, format and clinical context of patient data. In addition, data may be omitted in some cases. CLINICAL DECISIONS SHOULD BE BASED ON THE PRIMARY CLINICAL RECORDS. [facility]. provides no warranty or guarantee of the accuracy or completeness of information in this document.
--- OUTSIDE RECORDS SUMMARY | 2024-09-20 23:00 | XMS RPT_ITS | CCD ---
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 Stevo Alcantara Emergency Provider [phone] Dr. Rober Rubio Primary Care Provider Dr. Deborah Barron Admit Provider Dr. Deborah Barron Other Provider Dr. Karen Mendez Attending Provider Dr. Maurizio Wells Attending Provider Dr. Maurizio Wells Other Provider Dr. Meng Wells Other Provider Dr. Hari Iniguez Attending Provider Dr. Hari Iniguez Other Provider Dr. Milagros Cochran Attending Provider Rm Lo MD Unavailable Suppan FAMILY PARTNER.MANAGER LEASING, Shantell A Unavailable Suppan FAMILY PARTNER.MANAGER LEASING, Shantell A Unavailable JOANNE, ROBER Primary Care [...] Care Unavailable HARPSTER, MARTIN Referring Unavailable JOANNE, ORBER Primary Care Unavailable HARPSTER, MARTIN Referring Unavailable HARPSTER, MARTIN Attending Unavailable JOANNE, ROBER Primary Care Unavailable HODA CYR Attending Unavailable JOANNE, ROBER Primary Care Unavailable HAAGEN, LORENZA Attending Unavailable JOANNE, ROBER Primary Care Unavailable JOANNE, ROBER Primary Care Unavailable HAAGEN, LORENZA Attending Unavailable JOANNE, ROBER Primary Care Unavailable ADAMS, EMILY D Referring Unavailable JOANNE, ROBER Primary Care Unavailable ADAMS, EMILY D Referring Unavailable Joanne MD, Dr. Rober Primary Care Provider Dr. Joshua Castañeda MD Referring Provider Dr. Joshua Castañeda MD Emergency Provider Dr. Hari Iniguez DO Admit Provider [phone] Hari Iniguez DO Attending Provider Allergies Allergy Classification Reported Allergen(s) Allergy Type Date of Onset Reaction(s) Facility Opioid Agonists (4 sources) Codeine Drug Allergy 3 Other: See Comments [facility] Penicillins (antibiotic) (4 sources) Penicillins Drug Allergy 2 [facility] Work Phone: Sulfonamides (antibiotic) (4 sources) Sulfonamides (Antibiotic) Drug Allergy 2 [facility] (20 sources) Codeine; 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: [CODEINE] Drug Allergy 3 Other: See Comments [facility] (11 sources) Penicillins; 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: [PENICILLINS] Drug Allergy 2 [facility] Work Phone: (20 sources) Seasonal allergy; 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: [SEASONAL ALLERGIES] Allergy to substance 2 Other: See Comments [facility] (20 sources) Sulfonamides (Antibiotic); 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: [SULFA (SULFONAMIDE ANTIBIOTICS)] Drug Allergy 2 [facility] Work Phone: (8 sources) Tetanus Vaccines And Toxoid; 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: [TETANUS VACCINES AND TOXOID] Drug Allergy 2 Anaphylaxis [facility] Work Phone: (20 sources) Penicillins Drug Allergy 2 Rash [facility] Work Phone: (20 sources) Tetanus Vaccines And Toxoid Drug Allergy 2 Anaphylaxis [facility] Work Phone: (1 source) Codeine Drug Allergy 1 [facility] (1 source) Penicillins Drug allergy (disorder) 1 [facility] (1 source) Sulfonamides (Antibiotic) Drug allergy (disorder) 1 [facility] (1 source) Tetanus Vaccines and Toxoid Drug allergy (disorder) 1 [facility] (1 source) venom-honey bee Drug allergy (disorder) 3 [facility] (3 sources) Penicillins Allergy to substance 1 Itching [facility] (3 sources) Sulfonamides (Antibiotic) Allergy to substance 1 Itching [facility] (3 sources) Tetanus Vaccines and Toxoid Allergy to substance 1 NEEDS FOLLOW-UP [facility] (2 sources) venom-honey bee Allergy to substance 3 Swelling [facility] (7 sources) Penicillins Drug Allergy 2 Rash [facility] Work Phone: Medications Current Medications Medication Drug Class(es) Dates Sig (Normalized) Sig (Original) [id number] 200 actuat albuterol 0.09 mg/actuat metered dose [...] (20 sources) Vitamin C Start: 09-20-2024 Vitamins A,C,U-Zkbt-Zmaire (Preservision Areds) 2,148 mcg-113 mg-45 mg-17.4mg tablet Active 1 {tbl} PO TWICE A DAY September 20, 2024 12:00am eyes administer with AM and PM meals Start: 03-08-2020 End: 09-20-2024 take 1 tablet by mouth once daily Vitamins A,C,H-Cvep-Vfhjnd 1 EACH tablet Discontinued 1 NMA PO DAILY March 08, 2020 1:00am September 20, 2024 5:18pm Start: 03-08-2020 Vitamins A,C,E -Zinc-Copper Active 1 EACH PO DAILY March 08, 2020 12:00am Start: 12-09-2013 vit A,C,E-Zinc -Copper (PRESERVISION AREDS) 7,160-113-100 lglb-ov-pyrx tab Take 2 tablets by mouth. 0 [...] Start: 03-08-2020 take 2 tablets by mo [facility] at bedtime Atorvastatin 40 MG tablet Active [...] on above: Take 1 capsule by mo [facility] twice daily for 10 days. ergocalciferol 1.25 mg oral capsule (20 sources) Provitamin D2 Compound Start: 09-21-19 Ergocalciferol (Vitamin D2) 1,250 mcg (50,000 unit) capsule Active 1250 ug PO EVERY WEEK September 20, 2024 12:00am ordered Start: 08-09-2024 take 1 capsule by mo [facility] every week ergocalciferol 50,000 unit capsule (VITAMIN [...] Ergocalciferol (Vitamin D2) 50,000 UNIT capsule Discontinued 33101 U PO EVERY WEEK March 08, 2020 1:00am January 31, 2023 2:53pm Comment on above: Take 1 capsule by mo [facility] one time a week. Fluticasone-Umeclidin- Vilanter (20 sources) Anticholinergic, Corticosteroid, beta2-Adrenergic Agonist Start: 09-20-2024 Jwrejauptpb-Apepceypm-Vg lanter (Trelegy Ellipta) 100-62.5-25 mcg blister with device Active 1 NMA INHALATION DAILY September 20, 2024 12:00am breathing Start: 01-31-2023 End: 09-20-2024 Fssqjodarev-Bgrjsduhe-Llupbs er (Trelegy Ellipta) 100-62.5-25 mcg blister with [...] 18 ug by inhalation once daily Tiotropium [place] Discontinued 18 MCG IH DAILY March 08, 2020 12:00am January 31, 2023 1:54pm Start: 01-20-2020 End: 04-06-2020 take 1 capsule by inhalation once daily tiotropium (SPIRIVA WITH HANDIHALER) 18 mcg inhalation capsule Indications: Pulmonary emphysema, unspecified emphysema type (HCC) Inhale 1 capsule as instructed once daily. 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] 04-28-2024 Episodic Other aftercare (1 source) [facility] (current) use of insulin; 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: [Type 2 [...] aftercare (20 sources) 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; 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: [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] Onset: 10-03-2023 10-03-2023 Episodic Other aftercare (1 source) penitentiary (current) use of anticoagulants; 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: [Chronic anticoagulation] [...] (Unsp spec) [#/Vol] 0.57 10*3/uL Low 0.83-4.51 [facility] Absolute neutrophil countOrd ered By: Joshuarubin Castañeda on 09-20-2024 Neutrophils (Bld) [#/Vol] 14.3 10*3/uL High 2.0-7.7 [facility] Anion gap in Serum or Plasma Ordered By: Joshua Castañeda on 09-20-2024 Anion gap [Moles/Vol] 16 mmol/L High 5-15 [facility] Automated lymphocyte count a s percentage of total leukocytesOrdered By: Joshuarubin Castañeda on 09-20-2024 Lymphocytes/100 WBC Auto (Unsp spec) 3.5 % Low 19-41 [facility] BUN/creatinine ratioOrdered By: Joshuarubin Castañeda on 09-20-2024 Urea nitrogen/Creatinine [Mass ratio] 21.4 mg/mg High 10-20 [facility] Basophil percentageOrdered B y: Joshua Castañeda on 09-20-2024 Basophils/100 WBC (Bld) 0.2 % 0-1 [facility] Blood base excess determinat ionOrdered By: Joshua Castañeda on 09-20-2024 Base excess Calc (BldV) [Moles/Vol] 3 mmol/L High -2-2 [facility] Blood bicarbonate measuremen tOrdered By: Joshua Castañeda on 09-20-2024 HCO3 (Bld) [Moles/Vol] 26.5 mmol/L High 22-26 [facility] Carbon dioxide, total [Moles /volume] in Central venous bloodOrdered By: Joshua Castañeda on 09-20-2024 CO2 [Moles/Vol] 21.6 mmol/L 21.0-32.0 [facility] Chloride assayOrdered By: Aurora Castañeda on 09-20-2024 Chloride [Moles/Vol] 98 mmol/L 98-[address] [facility] Eosinophil percentageOrdered By: Joshua Castañeda on 09-20-2024 Eosinophils/100 WBC (Bld) 0.2 % 0-5 [facility] Erythrocyte distribution wid th ratioOrdered By: Joshua Castañeda on 09-20-2024 Erythrocyte distribution width (RBC) [Ratio] 19.5 % High 11.6-14.6 [facility] Erythrocyte distribution wid th standard deviationOrdered By: Joshua Castañeda on 09-20-2024 Erythrocyte distribution width (RBC) [Ratio] 61.2 fl High 35.1-43.9 [facility] Glomerular filtration rate ( GFR) estimation/1.73 sq m using serum, plasma, or whole bOrdered By: Joshua Castañeda on 09-20-2024 GFR/1.73 sq M.predicted among non-blacks MDRD (S/P/Bld) [Vol rate/Area] 88 mL/min/{1.73_m2} >60 [facility] Comment on above: mL/min/1.73m2 CKD-EP I Creatinine Equation (2020) Hematocrit Auto (Bld) [Volum e fraction]Ordered By: Joshua Castañeda on 09-20-2024 Hematocrit (Bld) [Volume fraction] 23.9 % Low 37-47 [facility] Hemoglobin measurementOrdere d By: Joshua Castañeda on 09-20-2024 Hemoglobin (Bld) [Mass/Vol] 6.9 g/dL Low 12.0-15.0 [facility] Immature granulocytes/100 WB C Auto (Bld)Ordered By: Joshua Castañeda on 09-20-2024 Immature granulocytes/100 WBC (Bld) 0.800 % 0.0-0.9 [facility] Comment on above: IG% - Immature Granu locytes (promyelocytes, myelocytes and metamyelocytes) > 1% indicates that a LEFT SHIFT is Present. Lactic acid measurementOrder ed By: Joshua Castañeda on 09-20-2024 Lactate [Moles/Vol] 3.0 mmol/L High 0.0-2.0 [facility] Comment on above: Critical Result(s) C samuelroxana ACOLE at: 1613 by: ELEANOR Results read back by same. MCV (mean corpuscular volume ) determinationOrdered By: Joshua Castañeda on 09-20-2024 MCV (RBC) [Entitic vol] 87.5 fL 81-99 [facility] Mean corpuscular hemoglobin (MCH) determinationOrdered By: Joshua Castañeda on 09-20-2024 MCH (RBC) [Entitic mass] 25.3 pg Low 27.0-32.0 [facility] Mean corpuscular hemoglobin concentration (MCHC) determinationOrdered By: Joshua Castañeda on 09-20-2024 MCHC (RBC) [Mass/Vol] 28.9 g/dL Low 32-36 [facility] Mean platelet volume determi nationOrdered By: Joshua Castañeda on 09-20-2024 Platelet mean volume (Bld) [Entitic vol] 9.4 fL 6.2-12.0 [facility] Measurement, pHOrdered By: Wyatt Castañeda on 09-20-2024 pH (Unsp spec) 7.48 [pH] High 7.35-7.45 [facility] Monocyte percentageOrdered B y: Joshua Castañeda on 09-20-2024 Monocytes/100 WBC (Bld) 8.2 % 0-10 [facility] Neutrophil percentageOrdered By: Joshua Castañeda on 09-20-2024 Neutrophils/100 WBC (Bld) 87.1 % High 47-70 [facility] No Panel InformationOrdered By: Joshua Castañeda on 09-20-2024 Blood Gas Sample Site R Brach [facility] Blood Gas Specimen Type ART [facility] Blood Gas Vent Mode Not entered [facility] Oxygen Delivery Device Cannula [place] Nucleated red blood cell per centageOrdered By: Joshua Castañeda on 09-20-2024 Nucleated RBC/100 WBC (Bld) [Ratio] 0.2 % 0-5 [facility] Platelet countOrdered By: Aurora Castañeda on 09-20-2024 Platelets (Bld) [#/Vol] 309 10*3/uL 150-450 [facility] Potassium measurement (mass/ volume)Ordered By: Joshua Castañeda on 09-20-2024 Potassium (Unsp spec) [Mass/Vol] 4.3 mmol/L 3.3-5.1 [facility] RBC Auto (Bld) [#/Vol]Ordere d By: Joshua Castañeda on 09-20-2024 RBC (Bld) [#/Vol] 2.73 10*6/uL Low 4.2-5.4 [facility] Serum creatinine measurement (mass/volume)Ordered By: Joshua Castañeda on 09-20-2024 Creatinine [Mass/Vol] 0.71 mg/dL 0.70-1.20 [facility] Serum glucose measurement (m ass/volume)Ordered By: Joshua Castañeda on 09-20-2024 Glucose [Mass/Vol] 210 mg/dL High 70-99 [facility] Serum or plasma calcium maddi urement (mass/volume)Ordered By: Joshua Castañeda on 09-20-2024 Calcium [Mass/Vol] 8.2 mg/dL 7.6-11.0 [facility] Serum or plasma urea nitroge n measurement (mass/volume)Ordered By: Joshua Castañeda on 09-20-2024 Urea nitrogen [Mass/Vol] 15 mg/dL 4-19 [facility] Sodium levelOrdered By: Joshua Castañeda on 09-20-2024 Sodium [Moles/Vol] 135 mmol/L 133-145 [facility] Total carbon dioxide measure mentOrdered By: Joshua Castañeda on 09-20-2024 CO2 [Moles/Vol] 28 mmol/L [facility] Troponin T.cardiac [Mass/vol ume] in Serum or Plasma by High sensitivity methodOrdered By: Joshua Castañeda on 09-20-2024 Troponin T.cardiac High sensitivity method [Mass/Vol] 25 ng/L High <14 [facility] Troponin T.cardiac High sensitivity method [Mass/Vol] 29 ng/L High <14 [facility] White blood cell (WBC) count Ordered By: Joshua Castañeda on 09-20-2024 WBC (Bld) [#/Vol] 16.4 10*3/uL High 4.4-11.0 [facility] 09-01-2024 CN Office Visit (FAMPWS ) EMILY LOPEZ ([id number]) 1950 F Date Time Provider Department 09/01/24 1:00 PM [facility] During your visit today, we recorded the [...] (Patient not taking: Reported on 10/03/2023) vit A,C,Y-Xnqv-Ozgodr (PRESERVISION AREDS) 7,160-113-100 jhvm-ut-ohwl tab Take 2 tablets by mouth. aspirin, [...] wine 1 (more content not included)... Normal [facility] CNOVon 08-03-2024 CNOV Office Visit (VASSWS ) EMILY LOPEZ ([id number]) 1950 F Date Time Provider Department 08/03/24 9:30 AM EMILY ADAMS VASSWS During your visit today, we recorded the following information about you: Pulse Blood pressure 86/minute 142/74 Emily Adams, DO 08/03/2024 10:28 AM Signed [facility] [place] DEPARTMENT OF VASCULAR SURGERY OUTPATIENT VISIT DATE [...] 1 tablet by mouth once daily. vit A,C,Y-Wmsi-Ocyqwa (PRESERVISION AREDS) 7,160-113-100 xkhd-gi-ddjf tab Take 2 tablets by mouth. aspirin, [...] antegrade fl (more content not included)... Normal [facility] PVR ANK PRESS MARCELLE VAS LABon 07-15-2024 PVR ANK PRESS MARCELLE VAS LAB Non-Invasive Vascular Laboratory [facility] Lower Extremity Arterial Physiology [...] physician: Conor Grijalva MD, LATRICE Final CC [facility] : [id number] amicsSISUID See Link below for Image Normal [facility] US CAROTID ARTERIES MARCELLE VAS LABon 07-15-2024 US CAROTID ARTERIES MARCELLE [facility] LAB Non-Invasive Vascular Laboratory [facility] Carotid Duplex Bilateral/Complete Date of service/time: [...] physician: Conor Grijalva MD, RPVI Final [facility] : [id number] amicsSISUID See Link below for Image Normal [facility] CNPNon 05-28-2024 CNPN Telephone (FAMWS) EMILY LOPEZ ([id number]) 1950 F Date Time Provider Department 05/28/24 ROBER RUBIO [facility] During your visit today, we recorded the [...] [K76.0] Order(s):HEPATIC FUNCTION PNL [SQHFP] Order #: [id number] FUTURE US ABD RIGHT UPPER QUADRANT [[id number]] Order #: [id number] FUTURE Prescriptions as of 05/28/2024 - tirzepatide [...] - Controlled E11.9 Insulin: Yes - vit A,C,T-Zncu-Czezsa (PRESERVISION AREDS) 7,160-113-100 kwtp-gn-allr tab Take 2 tablets by mouth. - [...] Status:Closed by ROD REICH on 05/28/24 Normal [facility] CBC W Auto Differential pane l (Bld)on 05-26-2024 Basophils (Bld) [#/Vol] 0.05 10*3/uL Normal <0.11 [facility] Comment on above: Order Comment: Speci men Type: BLOOD SPECIMENOrdering Facility: [facility] Address: [address] [place] [address] Performed By: #### 5 7021-8 ####[facility] LABCLIA [id number] [place] [address] [place] Basophils/100 WBC (Bld) 0.5 % Normal [facility] Comment on above: Order Comment: Speci men Type: BLOOD SPECIMENOrdering Facility: [facility] Address: [address] [place] [address] Performed By: #### 5 7021-8 ####[facility] LABCLIA [id number] [place] [address] [place] Differential cell count method Nom (Bld) Auto Normal [facility] Comment on above: Order Comment: Speci men Type: BLOOD SPECIMENOrdering Facility: [facility] [place] Address: [address] [place] [address] Performed By: #### 5 7021-8 ####[facility] LABCLIA [id number] [place] [address] [place] Eosinophils (Bld) [#/Vol] 0.21 10*3/uL Normal <0.46 [facility] Comment on above: Order Comment: Speci men Type: BLOOD SPECIMENOrdering Facility: [facility] Address: [address] [place] [address] Performed By: #### 5 7021-8 ####[facility] LABIA [id number] [place] [address] [place] Eosinophils/100 WBC (Bld) 2.3 % Normal [facility] Comment on above: Order Comment: Speci men Type: BLOOD SPECIMENOrdering Facility: [facility] Address: [address] [place] [address] Performed By: #### 5 7021-8 ####[facility] LABIA [id number] [place] [address] [place] Erythrocyte distribution width (RBC) [Ratio] 13.4 % Normal 11.5-15.0 [facility] Comment on above: Order Comment: Speci men Type: BLOOD SPECIMENOrdering Facility: [facility] Address: [address] [place] [address] Performed By: #### 5 7021-8 ####[facility] LABIA [id number] [address] [place] Hematocrit (Bld) [Volume fraction] 40.9 % Normal 36.0-46.0 [facility] Comment on above: Order Comment: Speci men Type: BLOOD SPECIMENOrdering Facility: [facility] [place] Address: [address] [place] [address] Performed By: #### 5 7021-8 ####[facility] LABCLIA [id number] [place] [address] [place] Hemoglobin (Bld) [Mass/Vol] 13.5 g/dL Normal 11.5-15.5 [facility] Comment on above: Order Comment: Speci men Type: BLOOD SPECIMENOrdering Facility: [facility] Address: [address] [place] [address] Performed By: #### 5 7021-8 ####[facility] LABCLIA [id number] [place] [address] [place] Immature granulocytes (Bld) [#/Vol] 0.04 10*3/uL Normal <0.10 [facility] Comment on above: Order Comment: Speci men Type: BLOOD SPECIMENOrdering Facility: [facility] [place] Address: [address] [place] [address] Performed By: #### 5 7021-8 ####[facility] LABIA [id number] [place] [address] [place] Immature granulocytes/100 WBC (Bld) 0.4 % Normal [facility] Comment on above: Order Comment: Speci men Type: BLOOD SPECIMENOrdering Facility: [facility] [place] Address: [address] [place] [address] Performed By: #### 5 7021-8 ####[facility] LABIA [id number] [place] [address] [place] Lymphocytes (Bld) [#/Vol] 1.43 10*3/uL Normal 1.00-4.00 [facility] Comment on above: Order Comment: Speci men Type: BLOOD SPECIMENOrdering Facility: [facility] [place] Address: [address] [place] [address] Performed By: #### 5 7021-8 ####[facility] LABIA [id number] [place] [address] [place] Lymphocytes/100 WBC (Bld) 15.5 % Normal [facility] Comment on above: Order Comment: Speci men Type: BLOOD SPECIMENOrdering Facility: [facility] [place] Address: [address] [place] [address] Performed By: #### 5 7021-8 ####[facility] LABIA [id number] [place] [address] [place] MCH (RBC) [Entitic mass] 31.8 pg Normal 26.0-34.0 [facility] Comment on above: Order Comment: Speci men Type: BLOOD SPECIMENOrdering Facility: [facility] [place] Address: [address] [place] [address] Performed By: #### 5 7021-8 ####[facility] LABIA [id number] [place] [address] [place] MCHC (RBC) [Mass/Vol] 33.0 g/dL Normal 30.5-36.0 [facility] Comment on above: Order Comment: Speci men Type: BLOOD SPECIMENOrdering Facility: [facility] [place] Address: [address] [place] [address] Performed By: #### 5 7021-8 ####[facility] LABIA [id number] [place] [address] [place] MCV (RBC) [Entitic vol] 96.5 fL Normal 80.0-100.0 [facility] Comment on above: Order Comment: Speci men Type: BLOOD SPECIMENOrdering Facility: [facility] [place] Address: [address] [place] [address] Performed By: #### 5 7021-8 ####[facility] LABIA [id number] [place] [address] [place] Monocytes (Bld) [#/Vol] 1.08 10*3/uL High <0.87 [facility] Comment on above: Order Comment: Speci men Type: BLOOD SPECIMENOrdering Facility: [facility] [place] Address: [address] [place] [address] Performed By: #### 5 7021-8 ####[facility] LABCLIA [id number] [place] [address] [place] Monocytes/100 WBC (Bld) 11.7 % Normal [facility] Comment on above: Order Comment: Speci men Type: BLOOD SPECIMENOrdering Facility: [facility] Address: [address] [place] [address] Performed By: #### 5 7021-8 ####[facility] LABCLIA [id number] [place] [address] [place] Neutrophils (Bld) [#/Vol] 6.43 10*3/uL Normal 1.45-7.50 [facility] Comment on above: Order Comment: Speci men Type: BLOOD SPECIMENOrdering Facility: [facility] [place] Address: [address] [place] [address] Performed By: #### 5 7021-8 ####[facility] LABCLIA [id number] [place] [address] [place] Neutrophils/100 WBC (Bld) 69.6 % Normal [facility] Comment on above: Order Comment: Speci men Type: BLOOD SPECIMENOrdering Facility: [facility] [place] Address: [address] [place] [address] Performed By: #### 5 7021-8 ####[facility] LABCLIA [id number] [place] [address] [place] Nucleated RBC (Bld) [#/Vol] 10*3/uL Normal <0.01 [facility] Comment on above: Order Comment: Speci men Type: BLOOD SPECIMENOrdering Facility: [facility] [place] Address: [address] [place] [address] Performed By: #### 5 7021-8 ####[facility] LABCLIA [id number] [place] [id number] [place] Nucleated RBC/100 WBC (Bld) [Ratio] 0.0 /100 WBC Normal [facility] Comment on above: Order Comment: Speci men Type: BLOOD SPECIMENOrdering Facility: [facility] [place] Address: [address] [place] [address] Performed By: #### 5 7021-8 ####[facility] LABCLIA [id number] [place] [address] [place] Platelet mean volume (Bld) [Entitic vol] 10.4 fL Normal 9.0-12.7 [facility] Comment on above: Order Comment: Speci men Type: BLOOD SPECIMENOrdering Facility: [facility] [place] Address: [address] [place] [address] Performed By: #### 5 7021-8 ####[facility] LABCLIA [id number] [place] [address] [place] Platelets (Bld) [#/Vol] 261 10*3/uL Normal 150-400 [facility] Comment on above: Order Comment: Speci men Type: BLOOD SPECIMENOrdering Facility: [facility] [place] Address: [address] [place] [address] Performed By: #### 5 7021-8 ####[facility] LABCLIA [id number] [place] [address] [place] RBC (Bld) [#/Vol] 4.24 10*6/uL Normal 3.90-5.20 [facility] Comment on above: Order Comment: Speci men Type: BLOOD SPECIMENOrdering Facility: [facility] [place] Address: [address] [place] [address] Performed By: #### 5 7021-8 ####[facility] LABCLIA [id number] [place] [id number] [place] WBC (Bld) [#/Vol] 9.24 10*3/uL Normal 3.70-11.00 [facility] Comment on above: Order Comment: Speci men Type: BLOOD SPECIMENOrdering Facility: [facility] [place] Address: [address] [place] [address] Performed By: #### 5 7021-8 ####[facility] LABCLIA [id number] LUIS F SEGUNDO [id number] [place] [address] [place] CNOVon 05-26-2024 CNOV Office Visit (FAMPWS ) LOPEZEMILY Jauregui ([id number]) 1950 F Date Time Provider Department 05/26/24 1:00 PM LORENZA VO During your visit today, we recorded the following information about you: Pulse Blood pressure 90/minute 148/68 Lorenza Vo APRN.MANAGER LEASING 05/26/2024 7:16 PM Signed This is a [...] (Patient not taking: Reported on 10/03/2023) vit A,C,V-Tngl-Ypnrtd (PRESERVISION AREDS) 7,160-113-100 nwqj-br-lpit tab Take 2 tablets by mouth. aspirin, [...] Well appea (more content not included)... Normal [facility] Comprehensive metabolic 2000 panelon 05-26-2024 Albumin [Mass/Vol] 4.5 g/dL Normal 3.9-4.9 [facility] Comment on above: Order Comment: Speci men Type: BLOOD SPECIMENOrdering Facility: [facility] [place] Address: [address] [place] [address] Performed By: #### L IP, 27960-3 ####[facility] LABCLIA [id number] [place] [address] [place] ALP [Catalytic activity/Vol] 140 U/L High 34-123 [facility] Comment on above: Order Comment: Speci men Type: BLOOD SPECIMENOrdering Facility: [facility] [place] Address: [address] [place] [address] Performed By: #### L IPNF, 04801-1 ####[facility] LABCLIA [id number] [address] [address] [place] ALT [Catalytic activity/Vol] 38 U/L Normal 7-38 [facility] Comment on above: Order Comment: Speci men Type: BLOOD SPECIMENOrdering Facility: [facility] [place] Address: [address] [place] [address] Performed By: #### L IPNF, ####[facility] LABCLIA [id number] [place] [id number] [place] Anion gap [Moles/Vol] 14 mmol/L Normal 8-15 [facility] Comment on above: Order Comment: Speci men Type: BLOOD SPECIMENOrdering Facility: [facility] [place] Address: [address] [place] [address] Performed By: #### L IPNF, 45225-5 ####[facility] LABCLIA [id number] [place] [id number] [place] AST [Catalytic activity/Vol] 39 U/L High 13-35 [facility] Comment on above: Order Comment: Speci men Type: BLOOD SPECIMENOrdering Facility: [facility] [place] Address: [address] [place] [address] Performed By: #### L IPNF, 67139-2 ####[facility] LABCLIA [id number] [place] [id number] [place] Bilirubin [Mass/Vol] 0.5 mg/dL Normal 0.2-1.3 [facility] Comment on above: Order Comment: Speci men Type: BLOOD SPECIMENOrdering Facility: [facility] [place] Address: [address] [place] [address] Performed By: #### L IPNF, 34609-6 ####[facility] LABCLIA [id number] [address] [address] [place] Calcium [Mass/Vol] 9.6 mg/dL Normal 8.5-10.2 [facility] Comment on above: Order Comment: Speci men Type: BLOOD SPECIMENOrdering Facility: [facility] [place] Address: [address] [place] [address] Performed By: #### L IPNF, ####[facility] LABCLIA [id number] [address] [address] [place] Chloride [Moles/Vol] 100 mmol/L Normal 98-107 [facility] Comment on above: Order Comment: Speci men Type: BLOOD SPECIMENOrdering Facility: [facility] [place] Address: [address] [place] [address] Performed By: #### L IPNF, ####[facility] LABCLIA [id number] [place] [address] [place] CO2 [Moles/Vol] 25 mmol/L Normal 22-30 [facility] Comment on above: Order Comment: Speci men Type: BLOOD SPECIMENOrdering Facility: [facility] [place] Address: [address] [place] [address] Performed By: #### L IPNF, ####[facility] LABCLIA [id number] [place] [id number] [place] Creatinine [Mass/Vol] 0.51 mg/dL Low 0.58-0.96 [facility] Comment on above: Order Comment: Speci men Type: BLOOD SPECIMENOrdering Facility: [facility] [place] Address: [address] [place] [address] Performed By: #### L IPNF, ####[facility] LABCLIA [id number] [place] [id number] [place] Creatinine and Glomerular filtration rate.predicted panel (S/P/Bld) 98 mL/min/1.73m??? Normal >=60 [facility] Comment on above: Order Comment: Speci men Type: BLOOD SPECIMENOrdering Facility: [facility] [place] Address: [address] [place] [address] Result Comment: Filomena mated Glomerular Filtration Rate [...] actual GFR. Performed By: #### L CLAY, 58457-9 ####[facility] LABIA [id number] [place] [address] [place] Glucose [Mass/Vol] 128 mg/dL High 74-99 [facility] Comment on above: Order Comment: Reg kelly Type: BLOOD SPECIMENOrdering Facility: [facility] [place] Address: [address] [place] [address] Result Comment: The [place] Diabetes Association (ADA) provides guidance for cutoff [...] Standards of Medical Care in Diabetes 2016, [place] [employer]. Diabetes Care. 2016.39(Suppl 1). Performed By: #### L IP, 60401-9 ####[facility] LABIA [id number] [place] [address] [place] Potassium [Moles/Vol] 4.0 mmol/L Normal 3.7-5.1 [facility] Comment on above: Order Comment: Reg kelly Type: BLOOD SPECIMENOrdering Facility: [facility] [place] Address: [address], [place] [address] Performed By: #### L IPNF, 37502-0 ####[facility] LABCLIA [id number] [address] [place] [address] [place] Protein [Mass/Vol] 7.3 g/dL Normal 6.3-8.0 [facility] Comment on above: Order Comment: Speci men Type: BLOOD SPECIMENOrdering Facility: [facility] [place] Address: [address] [place] [address] Performed By: #### L IPNF, 95285-7 ####[facility] LABCLIA [id number] [address] [address] [place] Sodium [Moles/Vol] 139 mmol/L Normal 136-144 [facility] Comment on above: Order Comment: Speci men Type: BLOOD SPECIMENOrdering Facility: [facility] [place] Address: [address] [place] [address] Performed By: #### L IPNF, 40138-0 ####[facility] LABCLIA [id number] [address] [address] [place] Urea nitrogen [Mass/Vol] 13 mg/dL Normal 7-21 [facility] Comment on above: Order Comment: Speci men Type: BLOOD SPECIMENOrdering Facility: [facility] [place] Address: [address] [place] [address] Performed By: #### L IPNF, 70756-9 ####[facility] LABCLIA [id number] [address] [address] [place] HbA1c (Bld)on 05-26-2024 Average glucose Estimated from glycated hemoglobin (Bld) [Mass/Vol] 140 mg/dL Normal [facility] Comment on above: Order Comment: Speci men Type: BLOOD SPECIMENOrdering Facility: [facility] [place] Address: [address] [place], [place] [address] Result Comment: eAG: (Estimated average glucose) is a calculated value from HgbA1c and is sales representative gas service of the average blood glucose level in the last 2-3 month period. Performed By: #### 5 5454-3 ####[facility] LABCLIA [id number] [place] [address] [place] HbA1c (Bld) [Mass fraction] 6.5 % High 4.3-5.6 [facility] Comment on above: Order Comment: Speci men Type: BLOOD SPECIMENOrdering Facility: [facility] [place] Address: [address] [place] [address] Result Comment: Amer [place] Diabetes Association guidelines indicate that patients with HgbA1c in the range 5.7-6.4% are at increased risk for development of diabetes, and intervention by lifestyle modification may be beneficial. HgbA1c greater or equal to 6.5% is considered diagnostic of diabetes. Performed By: #### 5 5454-3 ####[facility] LABCLIA [id number] [place] [address] [place] LIPID PANEL, NONFASTINGon Cholesterol [Mass/Vol] 164 mg/dL Normal <200 [facility] Comment on above: Order Comment: Speci men Type: BLOOD SPECIMENOrdering Facility: [facility] [place] Address: [address] [place] [address] Result Comment: <200 mg/dL, Desirable 200-239 mg/dL, Borderline high >239 mg/dL, High Performed By: #### L IPNF, 98498-3 ####[facility] LABCLIA [id number] [place] [address] [place] HDL CHOLESTEROL, NF 45 mg/dL Normal >39 [facility] Comment on above: Order Comment: Speci men Type: BLOOD SPECIMENOrdering Facility: [facility] [place] Address: [address] [place] [address] Result Comment: 40-5 9 mg/dL, Acceptable >59 mg/dL, High: Negative risk factor for coronary heart disease <40 mg/dL, Low: Positive risk factor for coronary heart disease Performed By: #### L IPNF, 94216-3 ####[facility] LABCLIA [id number] [address] STATES OF [facility] LDL CHOLESTEROL, NF 92 mg/dL Normal <100 [facility] Comment on above: Order Comment: Reg kelly Type: BLOOD SPECIMENOrdering Facility: [facility] [place] Address: [address] [place] [address] Result Comment: <100 mg/dL, Optimal 100-129 mg/dL, Near optimal/above optimal 130-159 mg/dL, Borderline high 160-189 mg/dL, High >189 mg/dL, Very high Secondary prevention optimal LDL Cholesterol levels are recommended to be < 70 mg/dL Performed By: #### L [place], 48639-7 ####[facility] LABCLIA [id number] [address] LDL/HDL RATIO, NF 2.04 mg/dL Normal <2.54 [facility] Comment on above: Order Comment: Reg kelly Type: BLOOD SPECIMENOrdering Facility: [facility] [place] Address: [address] [place] [address] Result Comment: Refe rence: 1. National Cholesterol Education Program ATP III Guideline At-A-Glance Quick Desk Reference: National Heart, Lung, and Blood [place]. National Institutes of Health. 2001: NIH Publication No. 01-3305. 2. An International Atherosclerosis Society position paper: global recommendations for the management of dyslipidemia: executive summary, Atherosclerosis. 2014: 232(2):410-413. Performed By: #### L IPMARY, 39780-6 ####[facility] LABIA [id number] [address] OF [facility] NON HDL CHOL, NF 119 mg/dL Normal <130 [facility] Comment on above: Order Comment: Reg kelly Type: BLOOD SPECIMENOrdering Facility: [facility] [place] Address: [address] [place] [address] Result Comment: <130 mg/dL, Optimal 130-159 mg/dL, Near optimal/above optimal 160-189 mg/dL, Borderline high 190-219 mg/dL, High >219 mg/dL, Very high Secondary prevention optimal non HDL Cholesterol levels are recommended to be <100 mg/dL Performed By: #### L IPNF, 77358-9 ####[facility] LABCLIA [id number] [address] OF [place] T CHOL/HDL RATIO NF 3.64 mg/dL Normal <5.10 [facility] Comment on above: Order Comment: Speci men Type: BLOOD SPECIMENOrdering Facility: [facility] [place] Address: [address] [place] [address] Performed By: #### L IPNF, ####[facility] LABIA [id number] [address] OF [facility] TRIGLYCERIDES, NF 136 mg/dL Normal <150 [facility] Comment on above: Order Comment: Speci men Type: BLOOD SPECIMENOrdering Facility: [facility] [place] Address: [address] [place] [address] Result Comment: <150 mg/dL, Normal 150-199 mg/dL, Borderline high 200-499 mg/dL, High >499 mg/dL, Very high Performed By: #### L IPNF, 30926-1 ####[facility] LABIA [id number] [address] STATES [place] VLDL CHOLESTEROL, NF 27 mg/dL Normal <30 [facility] Comment on above: Order Comment: Speci men Type: BLOOD SPECIMENOrdering Facility: [facility] [place] Address: [address] [place] [address] Performed By: #### L IPNF, 92705-5 ####[facility] LABIA [id number] [address] OF [place] CNNURSEon 05-13-2024 CNNURSE Nurse Visit (MEETPWS) EMILY LOPEZ ([id number]) 1950 F Date Time Provider Department 05/13/24 10:30 AM ID NURSE SAMANTHA During your visit today, we [...] - Controlled E11.9 Insulin: Yes - vit A,C,L-Azoc-Ysbeam (PRESERVISION AREDS) 7,160-113-100 qquj-gc-rdgg tab Take 2 tablets by mouth. - [...] Status:Closed by DIVINE DIANE on 05/13/24 Normal [facility] CNOVon 04-28-2024 [facility] EM[facility] LOPE[facility] ([id number]) 1950 F Date Time Provider Department 04/28/24 1:00 PM LORENZA VO During your visit today, we recorded the following information about you: Pulse Respiration Blood pressure Weight 95/minute 16/minute 102/74 90.3 kg Lorenza Vo APRN.MANAGER LEASING 04/30/2024 10:06 AM Signed This is a [...] (Patient not taking: Reported on 10/03/2023) vit A,C,A-Bmtm-Abedne (PRESERVISION AREDS) 7,160-113-100 dlls-qg-ymdz tab Take 2 tablets by mouth. aspirin, [...] tobacco: Ne (more content not included)... [facility] (PULMWS ) EMILY LOPEZ ([id number]) 1950 F Date Time Provider Department 02/12/24 2:45 PM HODA CYR During your visit today, we recorded the following information about you: Pulse Blood pressure Weight 92/minute 124/84 90.8 kg Hoda Cyr MD 02/12/2024 5:23 PM Signed . [facility] [place] Note Patient name: Emily Lopez PCP: Rober [...] DATE OF EXAM: Feb 02 2024 1:58PM [facility] 0561 - CT LUNG FOLLOWUP WO IVCON [...] 1 tablet by mouth once daily. vit A,C,E-Jcxq-Aoreor (PRESERVISION AREDS) 7,160-113-100 zrlp-wy-rxwd tab Take 2 tablets by mouth. aspirin, [...] COPD Fa (more content not included)... Normal [facility] CNOVon 02-02-2024 CNOV Office Visit (PULMWS ) EMILY LOPEZ ([id number]) 1950 F Date Time Provider Department 02/02/24 [...] activities of daily living. Modified Medical Research [place] Dyspnea Scale (MMRC) I only get breathless [...] PFTS: SPIROMETRY - BASELINE AND POST DILATOR ([id number]) - ordered on 03/08/20 [place] [address] [facility] [place] [address] Test Date: 2020-03-08 Pat Name: EMILY LOPEZ Department: Room: Gender: Female Warp Scouring Vat Tender: STEPHY Scales : 1950 Requested By: Rober RUBIO Order Number: [id number] Reading MD: Hoda Cyr M.D. Interpretive Statements 2 Puffs of albuterol (180mcg) delivered by MDI via Aerochamber HRpre =101 /min, HRpost= 101/min. ATS/ERS acceptability and repeatability standards for spirometry met. IMPRESSION: Spirometry indicates moderate obstruction. There was not a significant bronchodilator response. Electronically Signed On 03-09-19 (more content not included)... Normal [facility] CT LUNG FOLLOWUP WO IVCONon 02-02-2024 CT LUNG FOLLOWUP WO IVCON * * *Final Report* * * DATE OF EXAM: Feb 02 2024 1:58PM [facility] 0561 - CT LUNG FOLLOWUP WO IVCON / PROCEDURE REASON: Lung nodules * * * * Physician Interpretation * * * * EXAMINATION: CT LUNG FOLLOWUP WO IVCON CLINICAL HISTORY: Lung nodules Technique: Spiral CT acquisition of the chest from the thoracic inlet to the upper abdomen without contrast. MQ: [id number]_6 Followup LDCT Patient characteristics: * Envv-bd-Rpnny: 1950; Age at exam: 73 years * Gender: Female * Lung Disease: Asymptomatic (no signs or symptoms of lung disease) * Number of Pack Years: 30 * Current smoker (=0) or Number of Years since Quit: 12 * Ordering provider and NPI: MARTIN BENITES [id number] * Interpreting radiologist and NPI: Darrell [id number] Exam acquisition parameters: * Exam Date: 02/02/2024 1:58 PM * Site: [facility] * * CT System Microfilming Document Preparer: Siemens * CT System Model: Sensation * [...] screening with LDCT in 12 months. Reference: [employer]. Lung CT Screening Reporting and Data System (Lung-RADS). Available at: http://[email or web address].org/Qu [email or web address] [email or web address] Architect Intern: ELLEN Transcribe Date/Time: Feb 03 2024 9:37A Dictated by : MALIK MULLINS MD This examination was interpreted and the report reviewed and electronically signed by: MALIK MULLINS MD on Feb 03 2024 9:44AM EST [id number] Normal [facility] CNOVon 11-04-2023 CNOV Office Visit (VASSWS ) EMILY LOPEZ ([id number]) 1950 F Date Time Provider Department 11/04/23 9:15 AM EMILY ADAMSS During your visit today, we recorded the following information about you: Pulse Blood pressure 94/minute 146/70 Emily Adams DO 12/02/2023 10:10 AM Signed Heart [facility] Vascular [facility] Thoracic [place] DEPARTMENT OF VASCULAR SURGERY OUTPATIENT VISIT DATE [...] 1 tablet by mouth once daily. vit A,C,M-Ohgy-Mnlgyj (PRESERVISION AREDS) 7,160-113-100 oirf-mg-hajy tab Take 2 tablets by mouth. aspirin, [...] Aortic or (more content not included)... Normal [facility] PVR LEG MARCELLE VAS LABon 2023 P[facility] LEG [facility] LAB Non-Invasive Vascula r Laboratory [facility] Lower Extremity Arterial Physiology Study Bilateral/Complete [...] infrapopliteal disease. Technologist: Brooke Del Rosario RVT, [facility] Ordering physician: EMILY ADAMS Interpreting physician: LATRICE Alegria DO Final CC [facility] [facility] Image : [id number] amicsSISUID See Link below for Image Normal [facility] US CAROTID ARTERIES MARCELLE VAS LABon 10-30-2023 US CAROTID ARTERIES [facility]ARCEL[facility] LAB Non-Invasive Vascular Laboratory [facility] Carotid Duplex Bilateral/Complete Date of service/time: [...] Interpreting physician: LATRICE Alegria DO Final CC [facility] : [id number] amicsSISUID See Link below for Image Normal [facility] CNOVon 10-28-2023 CNOV Office Visit (FAMPWS ) EMILY LOPEZ ([id number]) 1950 F Date Time Provider Department 10/28/23 [...] (Patient not taking: Reported on 10/03/2023) vit A,C,S-Ipbe-Zindkf (PRESERVISION AREDS) 7,160-113-100 ouwv-zj-jvqo tab Take 2 tablets by mouth. aspirin, [...] murmur, ga (more content not included)... [facility] EM[facility] LOPEZ ([id number]) 1950 F Date Time Provider Department 10/28/23 [...] - Controlled E11.9 Insulin: Yes - vit A,C,N-Kpqa-Ynqzlu (PRESERVISION AREDS) 7,160-113-100 bgsm-lc-ejyf tab Take 2 tablets by mouth. - [...] Encounter Status:Closed by GRIS GUZMAN on 10/28/23 [facility] Suzie 10-03-2023 URIEL Office Visit (STACIE ) EMILY LOPEZ ([id number]) 1950 F Date Time Provider Department 10/03/23 2:40 PM BRITTON GANNON During your visit today, we recorded the following information about you: Pulse Blood pressure Weight Height 108/minute 110/72 87.4 kg 1.549 m Britton Gannon DO 10/03/2023 4:58 PM [facility] SECTION OF [facility] OUTPATIENT VISIT DATE October 03, 2023 PRIMARY CARE PHYSICIAN: Rober Rubio [address] [place] [address] HISTORY OF PRESENT ILLNESS: Ms. Lopez is [...] Smokeless tobacco: (more content not included)... Normal [facility] CNOVon 09-29-2023 CNOV Office Visit ([facility]ASSMD ) EMILY LOPEZ ([id number]) 1950 F Date Time Provider Department 09/29/23 12:30 PM EMILY ADAMS During your visit today, we recorded the following information about you: Pulse Blood pressure 88/minute 131/67 Emily Adams, DO 09/29/2023 4:15 PM Signed Heart, Vascular and Thoracic [place] DEPARTMENT OF VASCULAR SURGERY OUTPATIENT VISIT DATE September 29, 2023 OUTPATIENT VISIT TYPE CONSULTATION SERVICE DATE: 09/29/2023 SERVICE TIME: 12:24 PM PRIMARY CARE PHYSICIAN: Rober Rubio MD REFERRING PROVIDER: Rober Rubio [address] [facility] [address] Consult requested for an opinion regarding the [...] DM - Controlled E11.9 Insulin: Yes vit A,C,R-Wdzz-Okwjgk (PRESERVISION AREDS) 7,160-113-100 vkcx-mj-kndc tab Take by mouth. aspirin, enteric coated (ASPIRIN LOW DOSE) 81 mg EC tablet Take 1 tablet by mouth once daily. ALLERGIES: ALLERGIES Allergen Reactions Tetanus Vaccines An* Anaphylaxis Codeine Other: See Comments Patient states it feels like bugs are crawling on her Penicillins Rash Seasonal Allergies Other: See Comments Sulfa (Sulfonamide * Rash REVIEW of SYSTEM: Constitutional (more content not included)... Normal [facility] CNOVon 09-24-2023 CNOV Office Visit (FAMPWS ) EMILY LOPEZ ([id number]) 1950 F Date Time Provider Department 09/24/23 1:00 PM [facility] During your visit today, we recorded the [...] DM - Controlled E11.9 Insulin: Yes vit A,C,R-Altk-Percqt (PRESERVISION AREDS) 7,160-113-100 bnwy-bu-lmvx tab Take by mouth. aspirin, enteric coated [...] diagnosis) Will (more content not included)... Normal [facility] EM[facility] ([id number]) 1950 F Date Time Provider Department 09/18/23 [...] Date Reviewed: 07/23/2023 Reviewed by: Martin Benites APRN.MANAGER LEASING - Fully Assessed Reason for Visit: Results [95] Primary Visit Diagnosis:PVD (peripheral vascular disease) ([facility]) [I73.9] Order(s):CONSULT TO VASCULAR SURGERY [9042] Order #: [id number]: 1 FUTURE Prescriptions as of 09/23/2023 - [...] - Controlled E11.9 Insulin: Yes - vit A,C,A-Xkvj-Jbxumv (PRESERVISION AREDS) 7,160-113-100 udqa-mw-vddx tab Take by mouth. - aspirin, enteric [...] Encounter Status:Closed by ROBER RUBIO on 09/23/23 [facility] ARM ARTERIAL MARCELLE VAS LABo n 09-17-2023 ARM ARTERIAL [facility] LAB Non-Invasive Vascular Laboratory [facility] Upper Extremity Arterial Duplex Bilateral/Complete Date [...] and Ulnar artery : patent . Technologist: Brooke Del Rosario RVT, RDFL Ordering physician: LORENZA VO Interpreting physician: LATRICE Alegria DO Final CC [facility] Image : [id number] See Link below for Image Normal [facility] CT LUNG SCREEN WO IVCONon CT LUNG SCREEN WO IVCON * * *Final Repor t* * * * * * SEE BOTTOM OF REPORT FOR ADDENDED TEXT * * * DATE OF EXAM: Jul 23 2023 12:56PM [facility] - CT LUNG SCREEN WO IVCON [...] without contrast. MQ: CTLCS_6 Patient characteristics: * Uewd-nr-Gugnp: 1950; Age at exam: 72 years * Gender: Female * Lung Disease: Asymptomatic (no signs or symptoms of lung disease) * Number of Pack Years: 30 * Current smoker (=0) or Number of Years since Quit: 12 * Ordering provider and NPI: GRIS ROSARIO [id number] * Interpreting radiologist and NPI: Tram [id number] Exam acquisition parameters: * Exam Date: 07/23/2023 12:56 PM * Site: [facility] * * CT System Microfilming Document Preparer: Clearle[employer] * CT System Model: [employer] * Tube Current-Time (mA-sec): 60 * Peak [...] in 12 months. Other actionable findings: Reference: [employer]. Lung CT Screening Reporting [...] be communicated with ordering provider Martin Benites. Architect Intern: PSCB (more content not included)... Normal [facility] THYROID STIMULATING HORMONEo n 07-17-2023 TSH Qn 1.390 m[IU]/L [facility] TSH Qnon 07-17-2023 Interpretation and review of laboratory results Normal [facility] XR Chest PA and Lateralon IMPRESSION: No acute radiographic abnormality. Architect Intern: ELLEN Transcribe Date/Time: Feb 25 2023 2:41P Dictated by : JACKIE BATES MD This examination was interpreted and the report reviewed and electronically signed by: JACKIE BATES MD on Feb 25 2023 2:43PM [facility] DIVISION OF RADIOLOGY * * *Final Report* [...] change. Diffuse osteopenia. DIVISION OF RADIOLOGY [facility] * * *Final Report* [...] osteopenia. IMPRESSION IMPRESSION: No acute radiographic abnormality. Architect Intern: PSCB Transcribe Date/Time: Feb 25 2023 2:41P Dictated by : JACKIE BATES MD This examination was interpreted and the report reviewed and electronically signed by: JACKIE BATES MD on Feb 25 2023 2:43PM EST [facility] XR Chest PA and LateralOrder ed By: Ccf Provider on 02-25-2023 [facility] XR Chest PA and Lateralon Radiology Study observation (narrative) [facility] Bedside Glucoseon 02-05-2023 FINGERSTICK GLU 241 mg/dL High 74-106 [facility] Comment on above: Result Comment: JONATHAN GEMENT OF PATIENT CARE PER NURSING PROTOCOL Performed By: #### L 501.080 #### [facility] [address] [place], [address] FINGERSTICK GLU 163 mg/dL [facility]106 [facility] Comment on above: Result Comment: JONATHAN GEMENT OF PATIENT CARE PER NURSING PROTOCOL Performed By: #### L 501.080 #### [facility] [address] [place], [address] FINGERSTICK GLU 166 mg/dL High [address] [facility] Comment on above: Result Comment: JONATHAN GEMENT OF PATIENT CARE PER NURSING PROTOCOL Performed By: #### L 501.080 #### [facility] [address] [place], [address] Glucose Glucometer (BldC) [M ass/Vol]Ordered By: Hari Iniguez on 02-05-2023 Glucose [Mass/Vol] 241 mg/dL 74-106 [facility] Comment on above: MANAGEMENT OF PATIEN T CARE PER NURSING PROTOCOL Basic Metabolic Profile (BMP )on 02-04-2023 BUN/CRE 23.6 RATIO High 10-20 [facility] Comment on above: Performed By: #### L 500.2500 #### [facility] [address] [place], [address] CA,Total 8.8 mg/dL Normal 8.5-10.1 [facility] Comment on above: Performed By: #### L 500.2500 #### [facility] [address] [place], [address] Chloride [Moles/Vol] 103 mmol/L Normal 98-[address] [facility] Comment on above: Performed By: #### L 500.2500 #### [facility] [address] [place], [address] CO2 [Moles/Vol] 26.0 mmol/L Normal 21.0-32.0 [facility] Comment on above: Performed By: #### L 500.2500 #### [facility] [address] [place], [address] Creatinine [Mass/Vol] 0.68 mg/dL Normal 0.55-1.02 [facility] Comment on above: Result Comment: The validity of the calculated GFR GFRAA in patients over 70 years has not been determined. Clinical correlation is essential. Performed By: #### L 500.2500 #### [facility] [address] [place], [address] ECRCL 37.81 ml/min Normal [facility] Comment on above: Performed By: #### L 500.2500 #### [facility] [address] [place], [address] EST GFR - AA 109 mL/min Normal >60 [facility] Comment on above: Result Comment: Afri can Armenian GFR Calc Performed By: #### L 500.2500 #### [facility] [address] [place], [address] GAP 6 Normal 5-15 [facility] Comment on above: Performed By: #### L 500.2500 #### [facility] [address] [place], [address] GFR/1.73 sq M.predicted among non-blacks MDRD (S/P/Bld) [Vol rate/Area] 90 mL/min/{1.73_m2} Normal >60 [facility] Comment on above: Result Comment: Non- GFR Calc Performed By: #### L 500.2500 #### [facility] [address] [place], [address] Glucose [Mass/Vol] 214 mg/dL High 74-106 [facility] Comment on above: Result Comment: Gluc ose result greater than or equal to 200 mg/dL suggests DIABETES MELLITUS per A.D.A. criteria. Performed By: #### L 500.2500 #### [facility] [address] [place], [address] Potassium [Moles/Vol] 4.1 mmol/L Normal 3.5-5.1 [facility] Comment on above: Performed By: #### L 500.2500 #### [facility] [address] [place], [address] Sodium [Moles/Vol] 135 mmol/L Low 136-145 [facility] Comment on above: Performed By: #### L 500.2500 #### [facility] [address] [place], [address] Urea nitrogen [Mass/Vol] 16 mg/dL Normal 7-18 [facility] Comment on above: Performed By: #### L 500.2500 #### [facility] [address] [place], [address] Basophil percentageOrdered B y: Anselmo Nichole on 02-04-2023 Chloride [Moles/Vol] 103 mmol/L 98-[address] [facility] Glucose [Mass/Vol] 214 mg/dL 74-106 [facility] Comment on above: Glucose result great er than or equal to 200 mg/dLsuggests DIABETES MELLITUS per A.D.A. criteria. Potassium [Moles/Vol] 4.1 mmol/L 3.5-5.1 [facility] Sodium [Moles/Vol] 135 mmol/L 136-145 [facility] Bedside Glucoseon 02-04-2023 FINGERSTICK GLU 207 mg/dL High 74-106 [facility] Comment on above: Result Comment: JONATHAN GEMENT OF PATIENT CARE PER NURSING PROTOCOL Performed By: #### L 500.2500 #### [facility] [address] [facility] [address] FINGERSTICK GLU 215 mg/dL [address] Comment on above: Result Comment: JONATHAN GEMENT OF PATIENT CARE PER NURSING PROTOCOL Performed By: #### L 501.080 #### [facility] [address] [facility] [address] FINGERSTICK GLU 203 mg/dL [address] Comment on above: Result Comment: JONATHAN GEMENT OF PATIENT CARE PER NURSING PROTOCOL Performed By: #### L 501.080 #### [facility] [address] [facility] [address] FINGERSTICK GLU 162 mg/dL [address] Comment on above: Result Comment: JONATHAN GEMENT OF PATIENT CARE PER NURSING PROTOCOL Performed By: #### L 500.2500 #### [facility] [address] [facility] [address] Laboratory - Chemistry and C hemistry - challengeOrdered By: Anselmo Nichole on 02-04-2023 CO2 [Moles/Vol] 26.0 mmol/L 21.0-32.0 [facility] Urea nitrogen/Creatinine [Mass ratio] 23.6 mg/mg 10-20 [facility] No Panel InformationOrdered By: Anselmo Nichole on 02-04-2023 Estimated Creatinine Clearance Calc 37.81 ml/min [facility] Estimated GFR (MDRD) Amer 109 mL/min >60 [facility] Comment on above: GFR Calc Estimated GFR (MDRD) Non-Af Amer 90 mL/min >60 [facility] Comment on above: Non- GFR Calc Serum or plasma calcium maddi urement (mass/volume)Ordered By: Asnelmo Nichole on 02-04-2023 Calcium [Mass/Vol] 8.8 mg/dL 8.5-10.1 [facility] Serum or plasma creatinine m easurement (mass/volume)Ordered By: Anselmo Nichoel on 02-04-2023 Creatinine [Mass/Vol] 0.68 mg/dL 0.55-1.02 [facility] Comment on above: The validity of the calculated GFR & GFRAA in patients over 70 years has not been determined. Clinical correlation is essential. Serum or plasma urea nitroge n measurement (mass/volume)Ordered By: Anselmo Nichole on 02-04-2023 Urea nitrogen [Mass/Vol] 16 mg/dL 09-03 [facility] Thin prep Papanicolaou smear with manual screeningOrdered By: Anselmo Nichole on 02-04-2023 Thin prep Papanicolaou smear with manual screening 6 07-01 [facility] 12 Lead EKGon 02-03-2023 12 Lead EKG [facility] Cardi[facility] Services [address] [place] [address] 12 Lead EKG 02/03/23 1811 MR#: [id number] Acct: [id number] Name: EMILY LOPEZ Rep #: [id number] : 1950 72 From: Salvador Horner MD Attending Dr: Dr. Hari Iniguez DO Status: ADM IN Ordering Dr: Hari Iniguez DO Date: 02/03/23 Location: [facility] Sex: F C Admitted: 01/31/23 Test Reason [...] FOX, SALVADOR ([id number]), development editor GRIS SIMONS ([id number]) on 02/05/2023 6:02:28 AM Referred By: Confirmed By:SALVADOR HORNER MD 02/05/23 0602 Date Salvador Horner MD CC: Dr. Hari Iniguez, DO; Dr. Rober Rubio MD Signed Normal [facility] Bedside Glucoseon 02-03-2023 FINGERSTICK GLU 151 mg/dL High 74-106 [facility] Comment on above: Result Comment: JONATHAN GEMENT OF PATIENT CARE PER NURSING PROTOCOL Performed By: #### L 501.080 #### [facility] [address] [place], [address] FINGERSTICK GLU 265 mg/dL High -106 [facility] Comment on above: Result Comment: JONATHAN GEMENT OF PATIENT CARE PER NURSING PROTOCOL Performed By: #### L 501.080 #### [facility] [address] [place], [address] FINGERSTICK GLU 181 mg/dL High [address] [place] [address] Comment on above: Result Comment: JONATHAN GEMENT OF PATIENT CARE PER NURSING PROTOCOL Performed By: #### L 501.080 #### [facility] [address] [place], [address] FINGERSTICK GLU 145 mg/dL High -106 [facility] Comment on above: Result Comment: JONATHAN GEMENT OF PATIENT CARE PER NURSING PROTOCOL Performed By: #### L 501.080 #### [facility] [address] [place], [address] Respiratory Cultureon 2022 RESPC List Antibiotics [place] 48 Hours? zithromaz Mixed normal respiratory afsaneh. No Haemophilus, Streptococcus pneumoniae, beta-hemolytic Streptococcus or Staphylococcus aureus isolated. Normal [facility] Comment on above: Performed By: #### L 501.080 #### [facility] [address] [place], [address] 12 Lead EKGon 02-02-2023 12 Lead EKG [facility] [address] [place] [address] 12 Lead EKG 02/02/23 1113 MR#: [id number] Acct: [id number] Name: EIMLY LOPEZ Rep #: [id number] : 1950 72 From: Salvador Horner MD Attending Dr: Dr. Hari Iniguez DO Status: ADM IN Ordering Dr: Maurizio Welsl DO Date: 02/02/23 Location: [facility] Sex: F C Admitted: 01/31/23 Test Reason [...] FOX, SALVADOR ([id number]), development editor GRIS SIMONS ([id number]) on 02/04/2023 11:00:09 AM Referred By: Confirmed By:ASLVADOR HORNER MD 02/04/23 1100 Date Salvador Horner MD CC: Dr. Maurizio Wells DO; Dr. Hari Iniguez DO; Dr. Rober Rubio MD Signed Normal [facility] Bedside Glucoseon 02-02-2023 FINGERSTICK GLU 220 mg/dL High 74-106 [facility] Comment on above: Result Comment: JONATHAN GEMENT OF PATIENT CARE PER NURSING PROTOCOL Performed By: #### L 501.080 #### [facility] [address] [place], [address] FINGERSTICK GLU 235 mg/dL High 74-106 [facility] Comment on above: Result Comment: JONATHAN GEMENT OF PATIENT CARE PER NURSING PROTOCOL Performed By: #### L 501.080 #### [facility] [address] [place], [address] FINGERSTICK GLU 249 mg/dL High 74-106 [facility] Comment on above: Result Comment: JONATHNA GEMENT OF PATIENT CARE PER NURSING PROTOCOL Performed By: #### L 501.080 #### [facility] [address] [place], [address] FINGERSTICK GLU 266 mg/dL High 74-106 [facility] Comment on above: Result Comment: JONATHAN GEMENT OF PATIENT CARE PER NURSING PROTOCOL Performed By: #### L 500.2500 #### [facility] [address] [place], [address] Echo Completeon 02-02-2023 Echo Complete [facility] [address] [place] [address] Echo Complete 02/03/23 0957 MR#: [id number] Acct: [id number] Name: EMILY LOPEZ Rep #: [id number] : 1950 72 From: Milagros Cochran MD [...] MD Date Dictated: 02/03/23956 Date Transcribed: 02/03/231715 Architect Intern: Signed Normal [facility] Absolute lymphocyte countOrd ered By: Deborah Barron on 02-01-2023 Lymphocytes Auto (Unsp spec) [#/Vol] 0.42 10*3/uL 0.83-4.51 [facility] Basic Metabolic Profile (BMP )on 02-01-2023 BUN/CRE 18.4 RATIO Normal 10-20 [facility] Comment on above: Performed By: #### L 501.080 #### [facility] [address] [place], [place], [address] CA,Total 9.6 mg/dL Normal 8.5-10.1 [facility] Comment on above: Performed By: #### L 501.080 #### [facility] [address] [place], [place], [address] Chloride [Moles/Vol] 99 mmol/L Normal 98-[address] [facility] Comment on above: Performed By: #### L 501.080 #### [facility] [address] [place], [address] CO2 [Moles/Vol] 28.0 mmol/L Normal 21.0-32.0 [facility] Comment on above: Performed By: #### L 501.080 #### [facility] [address] [place], [address] Creatinine [Mass/Vol] 0.76 mg/dL Normal 0.55-1.02 [facility] Comment on above: Result Comment: The validity of the calculated GFR GFRAA in patients over 70 years has not been determined. Clinical correlation is essential. Performed By: #### L 501.080 #### [facility] [address] [place], [address] ECRCL 37.81 ml/min Normal [facility] Comment on above: Performed By: #### L 501.080 #### [facility] [address] [place], [address] EST GFR - AA 96 mL/min Normal >60 [facility] Comment on above: Result Comment: Afri can Armenian GFR Calc Performed By: #### L 501.080 #### [facility] [address] [place], [address] GAP 8 Normal 5-15 [facility] Comment on above: Performed By: #### L 501.080 #### [facility] [address] [place], [address] GFR/1.73 sq M.predicted among non-blacks MDRD (S/P/Bld) [Vol rate/Area] 79 mL/min/{1.73_m2} Normal >60 [facility] Comment on above: Result Comment: Non- GFR Calc Performed By: #### L 501.080 #### [facility] [address] [place], [address] Glucose [Mass/Vol] 295 mg/dL High 74-106 [facility] Comment on above: Result Comment: Gluc ose result greater than or equal to 200 mg/dL suggests DIABETES MELLITUS per A.D.A. criteria. Performed By: #### L 501.080 #### [facility] [address] [place], [address] Potassium [Moles/Vol] 3.2 mmol/L Low 3.5-5.1 [facility] Comment on above: Performed By: #### L 501.080 #### [facility] [address] [facility] [place], [address] Sodium [Moles/Vol] 135 mmol/L Low 136-145 [facility] Comment on above: Performed By: #### L 501.080 #### [facility] [address] [facility] [place], [address] Urea nitrogen [Mass/Vol] 14 mg/dL Normal 7-18 [facility] Comment on above: Performed By: #### L 501.080 #### [facility] [address] [facility] [place], [address] Basophil percentageOrdered B y: Deborah Anderson on 02-01-2023 Basophils/100 WBC (Bld) 0.3 % 0-1 [facility] Eosinophils/100 WBC (Bld) 0.0 % 0-5 [facility] Neutrophils (Bld) [#/Vol] 6.5 10*3/uL 2.0-7.7 [facility] Neutrophils/100 WBC (Bld) 89.1 % 47-70 [facility] WBC (Bld) [#/Vol] 7.3 10*3/uL 4.4-11.0 [facility] Bedside Glucoseon 02-01-2023 FINGERSTICK GLU 261 mg/dL High 74-106 [facility] Comment on above: Result Comment: Dr Rubin reno Followed MANAGEMENT OF PATIENT CARE PER NURSING PROTOCOL Performed By: #### L 500.2500 #### [facility] [address] [facility] [address] FINGERSTICK GLU 346 mg/dL High 74-106 [facility] Comment on above: Result Comment: JONATHAN GEMENT OF PATIENT CARE PER NURSING PROTOCOL Performed By: #### L 501.080 #### [facility] [address] [facility] [address] FINGERSTICK GLU 303 mg/dL High 74-106 [facility] Comment on above: Result Comment: JONATHAN GEMENT OF PATIENT CARE PER NURSING PROTOCOL Performed By: #### L 500.2500 #### [facility] [address] [place], [address] FINGERSTICK GLU 261 mg/dL High 74-106 [facility] Comment on above: Result Comment: JONATHAN GEMENT OF PATIENT CARE PER NURSING PROTOCOL Performed By: #### L 500.2500 #### [facility] [address] [facility] [address] Blood erythrocytes count (nu mber/volume)Ordered By: Deborah Barron on 02-01-2023 RBC (Bld) [#/Vol] 4.43 10*6/uL 4.2-5.4 [facility] Blood hemoglobin measurement (mass/volume)Ordered By: Deborah Barron on 02-01-2023 Hemoglobin (Bld) [Mass/Vol] 14.6 g/dL 12.0-15.0 [facility] Blood lymphocytes/100 leukoc ytesOrdered By: Deborah Barron on 02-01-2023 Lymphocytes/100 WBC (Bld) 5.8 % 19-41 [facility] Blood manual differential co mment interpretation (narrative result)Ordered By: Deborah Barron on 02-01-2023 Manual differential comment Paul (Bld) [Interp] SCANNED [facility] Blood monocytes/100 leukocyt esOrdered By: Deborah Barron on 02-01-2023 Monocytes/100 WBC (Bld) 4.1 % 0-10 [facility] Blood platelet mean volumeOr dered By: Deborah Barron on 02-01-2023 Platelet mean volume (Bld) [Entitic vol] 9.9 fL 6.2-12.0 [facility] CBC W/Diff, Automatedon 01-17 SMEAR COMMENT SCANNED Normal [facility] Comment on above: Performed By: #### L 500.2500 #### [facility] [address] [place], [place], [id number] Determination of erythrocyte mean corpuscular volume (MCV)Ordered By: Deborah Barron on 02-01-2023 MCV (RBC) [Entitic vol] 97.5 fL 81-99 [facility] Gram Stainon 02-01-2023 GS List Antibiotics [place] 48 Hours? zithromaz Acceptable Specimen? Yes (<25 Epithelial cells per/lpf) Gram Stain 2+ Gram positive cocci 1+ Gram positive rods 2+ White Blood Cells No Epithelial cells Normal [facility] Comment on above: Performed By: #### L 501.080 #### [facility] [address] [place], [place], [address] Hematocrit Auto (Bld) [Volum e fraction]Ordered By: Deborah Barron on 02-01-2023 Hematocrit (Bld) [Volume fraction] 43.2 % 37-47 [facility] - Hematology and Cell countsOrdered By: Deborah Barron on 02-01-2023 Erythrocyte distribution width (RBC) [Entitic vol] 44.1 fL 35.1-43.9 [facility] Erythrocyte distribution width (RBC) [Ratio] 12.4 % 11.6-14.6 [facility] Immature granulocytes/100 WBC (Bld) 0.700 % 0.0-0.9 [facility] Comment on above: IG% - Immature Granu locytes (promyelocytes, myelocytes and metamyelocytes) > 1% indicates that a LEFT SHIFT is Present. MCH (RBC) [Entitic mass] 33.0 pg 27.0-32.0 [facility] Nucleated RBC/100 WBC (Bld) [Ratio] 0 % 0-5 [facility] MCHC Auto (RBC) [Mass/Vol]Or dered By: Deborah Barron on 02-01-2023 MCHC (RBC) [Mass/Vol] 33.8 g/dL 32-36 [facility] No Panel InformationOrdered By: Deborah Barron on 02-01-2023 Thyroid Stimulating Hormone (TSH) 0.39 uIU/mL 0.358-3.74 [facility] Platelets bldOrdered By: Rajesh Barron on 02-01-2023 Platelets (Bld) [#/Vol] 226 10*3/uL 150-450 [facility] RESPIRATORY PANEL MOLECULARo n 02-01-2023 RP PANEL Normal Reference Range = Not Detected Nucleic acid amplification test method Resp path DNA+RNA Pnl Resp ERNESTINE+probe CRITICAL VALUE VERIFIED. [facility] 02/01/23 8304 Nickolas Mckenzie. RESULTS READ BACK BY SAME. [...] Not Detected INFLUENZA A (SUBTYPE H1) Normal [facility] Comment on above: Performed By: #### L 501.080 #### [facility] [address] [place], [address] Thyroid Stim Hormone (TSH)on 02-01-2023 TSH 0.39 uIU/mL Normal 0.358-3.74 [facility] Comment on above: Performed By: #### L 501.080 #### [facility] [address] [facility] [place], [address] 12 Lead EKGon 01-31-2023 12 Lead EKG [facility] Cardiovascular Services [address] [place] [address] 12 Lead EKG 01/31/23 1359 MR#: [id number] Acct: [id number] Name: EMILY LOPEZ Rep #: [id number] : 1950 72 From: Kirsty Damon MD Attending Dr: Dr. Hari Iniguez DO Status: ADM IN Ordering Dr: Stevo Alcantara DO Date: 01/31/23 Location: [facility] Sex: F C Admitted: 01/31/23 Test Reason : SOB Blood Pressure : / mmHG Vent. Rate : 114 BPM Atrial Rate : 114 BPM P-R Int : 128 ms QRS Dur : 066 ms QT Int : 302 ms P-R-T Axes : 000 018 047 degrees QTc Int : 416 ms Sinus tachycardia Otherwise normal ECG Confirmed by ALEXIS FOX, THOMAS ([id number]), development editor GRIS SIMONS ([id number]) on 02/03/2023 1:34:30 PM Referred By: Confirmed By:LENORE DAMON MD 02/03/23 1334 Date Kirsty Damon MD CC: Dr. Stevo Alcantara DO; Dr. Hari Iniguez DO; Dr. Rober Rubio MD Signed Normal [facility] Absolute lymphocyte countOrd ered By: Stevo Alcantara on 01-31-2023 Lymphocytes Auto (Unsp spec) [#/Vol] 0.98 10*3/uL 0.83-4.51 [facility] BNP,B-Type NATRIURETIC PEPTI DEOrdered By: Stevo Alcantara on 01-31-2023 Natriuretic peptide B (Bld) [Mass/Vol] 78.1 pg/mL Normal 0-100 [facility] Comment on above: Performed By: #### L 501.4020, L503.6620 #### [facility] [address] [place], [address] Basic Metabolic Profile (BMP )on 01-31-2023 BUN/CRE 13.3 RATIO Normal 10-20 [facility] Comment on above: Performed By: #### L 500.2500 #### [facility] [address] [place], [address] CA,Total 9.8 mg/dL Normal 8.5-10.1 [facility] Comment on above: Performed By: #### L 500.2500 #### [facility] [address] [place], [address] ECRCL 37.81 ml/min Normal [facility] Comment on above: Performed By: #### L 500.2500 #### [facility] [address] [place], [address] EST GFR - AA 109 mL/min Normal >60 [facility] Comment on above: Result Comment: Afri can Armenian GFR Calc Performed By: #### L 500.2500 #### [facility] [address] [place], [address] GAP 4 Low 5-15 [facility] Comment on above: Performed By: #### L 500.2500 #### [facility] [address] [place], [address] GFR/1.73 sq M.predicted among non-blacks MDRD (S/P/Bld) [Vol rate/Area] 90 mL/min/{1.73_m2} Normal >60 [facility] Comment on above: Result Comment: Non- GFR Calc Performed By: #### L 500.2500 #### [facility] [address] [place], [address] Basic Metabolic Profile (BMP )Ordered By: Stevo Alcantara on 01-31-2023 Chloride [Moles/Vol] 98 mmol/L Normal 98-[address] [facility] Comment on above: Performed By: #### L 500.2500 #### [facility] [address] [place], [address] CO2 [Moles/Vol] 33.0 mmol/L High 21.0-32.0 [facility] Comment on above: Performed By: #### L 500.2500 #### [facility] [address] [place], [place], [address] Creatinine [Mass/Vol] 0.68 mg/dL Normal 0.55-1.02 [facility] Comment on above: Result Comment: The validity of the calculated GFR GFRAA in patients over 70 years has not been determined. Clinical correlation is essential. Performed By: #### L 500.2500 #### [facility] [address] [place], [address] The validity of the calculated GFR & GFRAA in patients over 70 years has not been determined. Clinical correlation is essential. Glucose [Mass/Vol] 170 mg/dL High 74-106 [facility] Comment on above: Result Comment: Fast ing Glucose result greater than or equal to 126 mg/dL suggests DIABETES MELLITUS per A.D.A. criteria. Performed By: #### L 500.2500 #### [facility] [address] [place], [place], [address] Fasting Glucose resu lt greater than or equal to 126 mg/dL suggests DIABETES MELLITUS per A.D.A. criteria. Potassium [Moles/Vol] 3.7 mmol/L Normal 3.5-5.1 [facility] Comment on above: Performed By: #### L 500.2500 #### [facility] [address] [place], [address] Sodium [Moles/Vol] 135 mmol/L Low 136-145 [facility] Comment on above: Performed By: #### L 500.2500 #### [facility] [address] [place], [address] Urea nitrogen [Mass/Vol] 9 mg/dL Normal 7-18 [facility] Comment on above: Performed By: #### L 500.2500 #### [facility] [address] [place], [address] Basophil percentageOrdered B y: Stevo Alcantara on 01-31-2023 Neutrophils (Bld) [#/Vol] 7.4 10*3/uL 2.0-7.7 [facility] Bedside Glucoseon 01-31-2023 FINGERSTICK GLU 167 mg/dL High 74-106 [facility] Comment on above: Result Comment: JONATHAN LANDIS OF PATIENT CARE PER NURSING PROTOCOL Performed By: #### L 500.2500 #### [facility] [address] [place], [address] CBC W/Diff, Automatedon 01-17 Absolute Lymph 0.98 X10 3/uL Normal 0.83-4.51 [facility] Comment on above: Performed By: #### L 500.2500 #### [facility] [address] [place], [address] Absolute Neut 7.4 X10 3/uL Normal 2.0-7.7 [facility] Comment on above: Performed By: #### L 500.2500 #### [facility] [address] [place], [address] IG% 0.300 Normal 0.0-0.9 [facility] Comment on above: Result Comment: IG% - Immature Granulocytes (promyelocytes, myelocytes and metamyelocytes) > 1% indicates that a LEFT SHIFT is Present. Performed By: #### L 500.2500 #### [facility] [address] [place], [address] Nucleated RBC (Bld) [#/Vol] 0 10*3/uL Normal 0-5 [facility] Comment on above: Performed By: #### L 500.2500 #### [facility] [address] [place], [address] RDW SD 44.1 fl High 35.1-43.9 [facility] Comment on above: Performed By: #### L 500.2500 #### [facility] [address] [place], [address] CBC W/Diff, AutomatedOrdered By: Stveo Alcantara on 01-31-2023 Basophils/100 WBC (Bld) 0.4 % Normal 0-1 [facility] Comment on above: Performed By: #### L 500.2500 #### [facility] [address] [place], [address] Eosinophils/100 WBC (Bld) 0.7 % Normal 0-5 [facility] Comment on above: Performed By: #### L 500.2500 #### [facility] [address] [place], [address] Erythrocyte distribution width (RBC) [Ratio] 12.4 % Normal 11.6-14.6 [facility] Comment on above: Performed By: #### L 500.2500 #### [facility] [address] [place], [address] Hematocrit (Bld) [Volume fraction] 43.8 % Normal 37-47 [facility] Comment on above: Performed By: #### L 500.2500 #### [facility] [address] [place], [address] Hemoglobin (Bld) [Mass/Vol] 15.1 g/dL High 12.0-15.0 [facility] Comment on above: Performed By: #### L 500.2500 #### [facility] [address] [place], [address] Lymphocytes/100 WBC (Bld) 10.2 % Low 19-41 [facility] Comment on above: Performed By: #### L 500.2500 #### [facility] [address] [place], [address] MCH (RBC) [Entitic mass] 33.2 pg High 27.0-32.0 [facility] Comment on above: Performed By: #### L 500.2500 #### [facility] [address] [place], [address] MCHC (RBC) [Mass/Vol] 34.5 g/dL Normal 32-36 [facility] Comment on above: Performed By: #### L 500.2500 #### [facility] [address] [place], [address] MCV (RBC) [Entitic vol] 96.3 fL Normal 81-99 [facility] Comment on above: Performed By: #### L 500.2500 #### [facility] [address] [place], [address] Monocytes/100 WBC (Bld) 11.0 % High 0-10 [facility] Comment on above: Performed By: #### L 500.2500 #### [facility] [address] [place], [address] Neutrophils/100 WBC (Bld) 77.4 % High 47-70 [facility] Comment on above: Performed By: #### L 500.2500 #### [facility] [address] [place], [address] Platelet mean volume (Bld) [Entitic vol] 9.4 fL Normal 6.2-12.0 [facility] Comment on above: Performed By: #### L 500.2500 #### [facility] [address] [place], [address] Platelets (Bld) [#/Vol] 203 10*3/uL Normal 150-450 [facility] Comment on above: Performed By: #### L 500.2500 #### [facility] [address] [place], [address] RBC (Bld) [#/Vol] 4.55 10*6/uL Normal 4.2-5.4 [facility] Comment on above: Performed By: #### L 500.2500 #### [facility] [address] [place], [address] WBC (Bld) [#/Vol] 9.6 10*3/uL Normal 4.4-11.0 [facility] Comment on above: Performed By: #### L 500.2500 #### [facility] [address] [place], [place], [address] Chest 1 View (Portable)on Chest 1 View (Portable) [facility] Imaging Services [address] [place] [address] Chest 1 View (Portable) MR#: [id number] Acct: [id number] Name: EMILY LOPEZ Rep #: [id number] : 1950 F 72 From: Arcadio hall MD PCP: Dr. Rober Rubio MD Status: REG ER Study: Chest 1 View (Portable) Date of Exam: 01/31/23 Exam# [id number] Ordering Dr: Stevo Alcantara DO ADDENDUM by Dr. Arcadio Perrin MD on 01/31/23 at 1502 ======== ADDENDUM ======== [id number] ADDENDUM report for voice recognition error. 01/31/23 1502 Date cc: Dr. Stevo Alcantara DO; Dr. Rober Rubio MD * Signed ADDENDUM by Dr. Arcadio Perrin MD on 01/31/23 at 1502 RAD/Chest 1 View (Portable) IMPRESSION: Vascular congestion. Electronically Signed: Arcadio Perrin MD at 15:02 EST Reading Location ID and State: [address] [place] [address] , Service support , 01/31/23 1509 Date cc: Dr. Stevo Alcantara DO; Dr. Rober Rubio MD * Signed [id number] STUDY: X-RAY CHEST REASON FOR EXAM: Female, [...] Stevo Alcantara DO; Dr. Rober Rubio MD Architect Intern: Signed Normal [facility] Emergency Department Summary on 01-31-2023 Emergency Department Summary [facility] Medical Records Department [address] [place] [address] [place] [address] Emergency Department Summary 01/31/23 MR#: [id number] Acct: [id number] Name: EMILY LOPEZ Rep #: [id number] : 1950 72 From: Stevo Alcantara DO PCP: Dr. Rober Rubio MD Status:ADM IN Location: [place] [id number] HPI History of Present Illness Chief Complaint: [...] has dyspnea with exertion to the bathroom. [facility] Medical History COVID Diabetes HTN (hypertension) Hypercholesteremia [...] DAILY 03/08/20 [History Last Taken Unknown] vitamins A,C,V-miyd-qrlshq 2,148 mcg-113 mg-45 mg-17.4 mg tablet 1 [...] non-tender Palpat (more content not included)... Normal [facility] Gram stain for investigation of transfusion reactionOrdered By: Deborah Barron on 01-31-2023 Microscopic observation Gram stain Nom (Unsp spec) [facility] H AND P Exam - Hospitaliston 01-31-2023 H&P Exam - Hospitalist [facility] Medical Records Department [address] [place] [address] H P Exam - Hospitalist 01/31/23 1717 MR#: [id number] Acct: [id number] Name: EMILY LOPEZ Rep #: [id number] : 1950 72 From: Deborah Barron MD PCP: Dr. Rober Rubio MD Status:ADM IN Location: [facility] [id number] HPI - General General Date of Admission: 01/31/23 Date of Service: 01/31/23 Chief Complaint: Increasing SOB HPI Narrative EMILY LOPEZ, is a 72 F with hypertension, former tobacco use, O2 nightly, and insomnia who presents to [facility] 01/31/2023 due to increasing shortness [...] very well. No chest pain, no swelling. [facility] Medical History (Updated 01/31/23 @ 17:27 by [...] DAILY 03/08/20 [History Last Taken Unknown] vitamins A,C,D-nxja-qwrlvg 2,148 mcg-113 mg-45 mg-17.4 mg tablet 1 [...] Pressure Positio (more content not included)... Normal [facility] Influenza virus A and B and SARS-CoV-2 (COVID-19) Ag panel - Upper respiratory specimOrdered By: Stevo Alcantara on 01-31-2023 SARS-CoV-2 (COVID-19) RNA ERNESTINE+probe Ql (Resp) [facility] L501.4020on 01-31-2023 TROPONIN-I HS 8 pg/mL Normal 3.0-54.0 [facility] Comment on above: Order Comment: 'TROP ' Serial specimen #1, #2 or #3: 1 Result Comment: Plea se Note: New Test Units and Gender Specific Reference Ranges. For more information see Policy Stat Procedure Stanton High Sensitivity Troponin (TNIH) and attachments. Performed By: #### L 501.4020, L503.6620 #### [facility] [address] [place], [address] Laboratory - Chemistry and C hemistry - challengeOrdered By: Stevo Alcantara on 01-31-2023 Urea nitrogen/Creatinine [Mass ratio] 13.3 mg/mg 10-20 [facility] - Hematology and Cell countsOrdered By: Stevo Rodríguezne on 01-31-2023 Erythrocyte distribution width (RBC) [Entitic vol] 44.1 fL 35.1-43.9 [facility] Immature granulocytes/100 WBC (Bld) 0.300 % 0.0-0.9 [facility] Comment on above: IG% - Immature Granu locytes (promyelocytes, myelocytes and metamyelocytes) > 1% indicates that a LEFT SHIFT is Present. Nucleated RBC/100 WBC (Bld) [Ratio] 0 % 0-5 [facility] Legionella Antigen Urineon 1 04-03-2022 LEGU URINE, CLEAN CATCH Legionella Antigen result interpretation: L pneumo Ag Ur Ql Negative Presumptive negative for Legionella pneumophila serogroup 1 antigen in urine, suggesting no recent or current infection. Legionella Ag, Urine Negative (See interpretation below) Normal [facility] Comment on above: Performed By: #### L 501.080 #### [facility] [address] [place], [address] M101.0111on 01-31-2023 M101.0111 *Negative results from patients [...] for Influenza A/B Antigen (See Note) Normal [facility] Comment on above: Performed By: #### L 501.080 #### [facility] [address] [place], [place], [address] Microbial respiratory cultur eOrdered By: Deborah Barron on 01-31-2023 Bacteria identified Respiratory culture Nom (Unsp spec) [facility] No Panel InformationOrdered By: Deborah Barron on 01-31-2023 Streptococcus pneumoniae Antigen (M [facility] No Panel InformationOrdered By: Stevo Alcantara on 01-31-2023 Estimated Creatinine Clearance Calc 37.81 ml/min [facility] Estimated GFR (MDRD) Amer 109 mL/min >60 [facility] Comment on above: GFR Calc Estimated GFR (MDRD) Non-Af Amer 90 mL/min >60 [facility] Comment on above: Non- GFR Calc Troponin I High Sensitivity 8 pg/mL 3.0-54.0 [facility] Comment on above: Please Note: New Shelia t Units and Gender Specific Reference Ranges. For more information see Policy Stat Procedure [place] High Sensitivity Troponin (TNIH) and attachments. Serum or plasma calcium maddi urement (mass/volume)Ordered By: Stevo Alcantara on 01-31-2023 Calcium [Mass/Vol] 9.8 mg/dL 8.5-10.1 [facility] Strep pneumoniae Antig(UR,CS F)on 01-31-2023 STPAG URINE, CLEAN CATCH URINE INTERPRETATION Strep pneumoniae Antig(UR,CSF) Negative Urine Presumptive negative for pneumococcal pneumonia, suggesting no current or recent pneumococcal infection. Infection due to S pneumoniae cannot be ruled out since the antigen present in the sample may be below the detection limit of the test. Strep pneumo Test Negative URINE (See interpretation below) Normal [facility] Comment on above: Performed By: #### L 501.080 #### [facility] [address] [place], [place], [address] Thin prep Papanicolaou smear with manual screeningOrdered By: Stevo Alcantara on 01-31-2023 Thin prep Papanicolaou smear with manual screening 07-01 [facility] Urine Legionella pneumophila antigen detectionOrdered By: Deborah Barron on 01-31-2023 L. pneumophila Ag Ql (U) [facility] DXA-AXIAL SKELETONon 022 [facility] CBC panel Auto (Bld)on 11-29 Erythrocyte distribution width (RBC) [Ratio] 12.7 % 11.5 - 15.0 % [facility] Hematocrit (Bld) [Volume fraction] 43.5 % 36.0 - 46.0 % [facility] Hemoglobin (Bld) [Mass/Vol] 14.5 g/dL 11.5 - 15.5 g/dL [facility] MCH (RBC) [Entitic mass] 32.4 pg 26. 0 - 34.0 pg [facility] MCHC (RBC) [Mass/Vol] 33.3 g/dL 30.5 - 36.0 g/dL [facility] MCV (RBC) [Entitic vol] 97.1 fL 80.0 - 100.0 fL [facility] Nucleated RBC (Bld) [#/Vol] <0.01 k/uL [facility] Platelet mean volume (Bld) [Entitic vol] 9.6 fL 9.0 - 12.7 fL [facility] Platelets (Bld) [#/Vol] 301 10*3/uL 150 - 400 k/uL [facility] RBC (Bld) [#/Vol] 4.48 10*6/uL 3.90 - 5.2 0 m/uL [facility] WBC (Bld) [#/Vol] 10.94 10*3/uL 3.70 - 11 .00 k/uL [facility] Comprehensive metabolic 2000 panelon 11-29-2021 Albumin [Mass/Vol] 5.0 g/dL High 3.9 - 4.9 g/dL [facility] ALP [Catalytic activity/Vol] 135 U/L High 34 - 123 U/L [facility] ALT [Catalytic activity/Vol] 35 U/L 7 - 38 U/L [facility] Anion gap [Moles/Vol] 14 mmol/L 9 - 18 mmol/L [facility] AST [Catalytic activity/Vol] 30 U/L 13 - 35 U/L [facility] Bilirubin [Mass/Vol] 0.6 mg/dL 0.2 - 1 .3 mg/dL [facility] Calcium [Mass/Vol] 9.5 mg/dL 8.5 - 10. 2 mg/dL [facility] Chloride [Moles/Vol] 100 mmol/L 97 - 10 5 mmol/L [facility] CO2 [Moles/Vol] 24 mmol/L 22 - 30 mmol/L [facility] Creatinine [Mass/Vol] 0.51 mg/dL Low 0.58 - 0.96 mg/dL [facility] Estimated Glomerular Filtration Rate 99 mL/min/1.73m >=60 mL/min/1.73m [facility] Glucose [Mass/Vol] 119 mg/dL High 74 - 99 mg/dL [facility] Potassium [Moles/Vol] 4.4 mmol/L 3.7 - 5.1 mmol/L [facility] Protein [Mass/Vol] 7.7 g/dL 6.3 - 8.0 g/dL [facility] Sodium [Moles/Vol] 138 mmol/L 136 - 144 mmol/L [facility] Urea nitrogen [Mass/Vol] 12 mg/dL 7 - 21 mg/d L [facility] Lipid 1996 panelon 2 Cholesterol [Mass/Vol] 217 mg/dL High <200 mg/dL Cl [facility] Cholesterol in HDL [Mass/Vol] 63 mg/dL >39 mg/dL [facility] Cholesterol in LDL [Mass/Vol] 127 mg/dL High <100 mg/dL [facility] Cholesterol in LDL/Cholesterol in HDL [Mass ratio] 2.02 {ratio} <2.54 [facility] Cholesterol in VLDL [Mass/Vol] 27 mg/dL <30 mg/dL [facility] Cholesterol non HDL [Mass/Vol] 154 mg/dL High <130 mg/dL [facility] Cholesterol.total/Choles terol in HDL [Mass ratio] 3.44 {ratio} <5.10 [facility] Fasting Time 15 hrs [facility] Triglyceride [Mass/Vol] 133 mg/dL <150 mg/dL C [facility] COLONOSCOPY SCREENINGon 08-17 [facility] GLUCOSE, BLOOD (POC)on 08-27 Glucose [Mass/Vol] 142 mg/dL Abnormal 74 - 99 mg/dL [facility] Glucose [Mass/Vol] 121 mg/dL Abnormal 74 - 99 mg/dL [facility] NM CARDIAC PERF STRESS/PHARM on 02-01-2020 NM CARDIAC PERF STRESS/PHARM Final Report DATE OF EXAM: Feb 01 2020 12:57PM [facility] 0006 - NM CARDIAC PERF STRESS/PHARM / [...] 60 minutes later. See administered doses below. [facility] Date of service: 02/01/2020 10:00:00 AM [...] with stress. Final -------- Stress ECG Report: [facility] Date of service: 02/01/2020 10:00:00 AM Ordering physician: ROBER RUBIO Specialist: Myra Griffin RN [place] Assembler: Jc Bolivar CEP Stress ECG interpreting physician: Anselmo [...] for age. The double product achieved was [address]. Peak heart rate was 114 bpm and [...] index (CRI): 0.55 Rate Pressure Product (RPP): 45695 Reason for test termination: End of Protocol. Symptoms during test: Chest pain, shortness of breath, nausea and leg pain. Blood pressure response: Normal BP response ST segment and T wave changes: No ST changes Arrhythmias: PACs Comments: lungs clear. lexiscan 0.4mg/5ml/10 seconds/ivp followed by radiopharmaceutical and saline Final -------- Stress Warehouse Shipping Supervisor Report: [facility] Date of service: 02/01/2020 10:00:00 AM Supervising physician: Anselmo Luciano MD PATIENT: Name: MRS. EMILY LOPEZ Age: 69 years Gender: F The supervising physician was present during the stress procedure. Final Architect Intern: BREANNE Transcribe Date/Time: Feb 01 2020 10:00A Dictated by : LALO BHATT MD This examination was interpreted and the report reviewed and electronically signed by: LALO BHATT MD on Feb 01 2020 1:54PM EST Normal [facility] PROGRESSon 02-01-2020 PROGRESS HNO ID: [id number] Author: Judith Ruiz (Rt) Service: Radiology Author Type: Warp Scouring Vat Tender Type: Progress Notes Filed: 02/01/2020 12:56 PM [...] STATUS: Discontinued PROCEDURE TYPE: NM Stress: 15.8mCi [id number] was administered IV for Rest Imaging at 0955 by cc. 46.0 mCi [id number] was administered IV for Stress Imaging at 1145 by cc. ADMINISTRATION TIME: 1145 PATIENT DISCHARGED TO: Ambulatory patient, left [place] department area. A Diagnostic radioactive procedure has taken place, with no further precautions necessary other than routine body substance precautions. More information regarding radiation safety can be found using this link: [email or web address] [email or web address] [email or web address]%[email or web address] [email or web address] SIGNATURE: RT Joseph PATIENT NAME: Emily Lopez DATE: February 01, 2020 TIME: 12:54 PM PAGER/CONTACT #: Vishal [facility] XR Chest PA and Lateralon IMPRESSION: No acute radiographic abnormality. Scattered atelectatic opacities. Architect Intern: PSCB Transcribe Date/Time: Jan 21 2020 11:10A Dictated by : MIKE ONEILL MD This examination was interpreted and the report reviewed and electronically signed by: MIKE ONEILL MD on Jan 21 2020 11:11AM [facility] DIVISION OF RADIOLOGY * * *Final Report* [...] the thoracic spine. DIVISION OF RADIOLOGY Provider, [facility] - 01/21/2020 * * *Final Report* * [...] No acute radiographic abnormality. Scattered atelectatic opacities. Architect Intern: PSCB Transcribe Date/Time: Jan 21 2020 11:10A Dictated by : MIKE ONEILL MD This examination was interpreted and the report reviewed and electronically signed by: MIKE ONEILL MD on Jan 21 2020 11:11AM EST [facility] XR Chest PA and LateralOrder ed By: Ccf Provider on 01-21-2020 [facility] XR Chest PA and Lateralon Radiology Study observation (narrative) [facility] Vital Signs Date Time Vital Sign Value Performing [facility] 09-20-2024 17:59-0400 Diastolic blood pressure 56 mm[Hg] Dr. Rober Rubio MD Work Phone: [facility] 09-20-2024 17:59-0400 Systolic blood pressure 111 mm[Hg] Dr. Rober Rubio MD Work Phone: [facility] 09-20-2024 17:58-0400 Body temperature 98.5 [degF] Dr. Rober Rubio MD Work Phone: [facility] 09-20-2024 17:58-0400 Heart rate 113 /min Dr. Rober Rubio MD Work Phone: [facility] 09-20-2024 17:58-0400 Inhaled oxygen flow rate 2 L/min Dr. Rober Rubio MD Work Phone: [facility] 09-20-2024 17:58-0400 Respiratory rate 26 /min Dr. Rober Rubio MD Work Phone: [facility] 09-20-2024 17:58-0400 SaO2% (BldA) [Mass fraction] 92 % Dr. Rober Rubio MD Work Phone: [facility] 09-20-2024 14:39-0400 Body mass index (BMI) [Ratio] 37.1 kg/m2 Dr. Rober Rubio MD Work Phone: [facility] 09-20-2024 14:39-0400 Body weight 89.[address] Rober Rubio MD Work Phone: [facility] 09-20-2024 14:02-0400 Body height 154.[address] Rober Rubio MD Work Phone: [facility] 09-01-2024 13:05-0400 Body mass index (BMI) [Ratio] 36.84 kg/m2 Lorenza Vo FAMILY PARTNER.MANAGER LEASING Work Phone: [facility] 09-01-2024 13:05-0400 Body weight 88.45 kg Lorenza Haagen FAMILY PARTNER.MANAGER LEASING Work Phone: [facility] 09-01-2024 13:05-0400 Diastolic blood pressure 69 mm[Hg] Lorenza Haagen FAMILY PARTNER.MANAGER LEASING Work Phone: [facility] Comment on above: R arm 09-01-2024 13:05-0400 Heart rate 104 /min Lorenza Haagen FAMILY PARTNER.MANAGER LEASING Work Phone: [facility] 09-01-2024 13:05-0400 Systolic blood pressure 149 mm[Hg] Lorenza Haagen FAMILY PARTNER.MANAGER LEASING Work Phone: [facility] Comment on above: R arm 09-01-2024 13:02-0400 Respiratory rate 16 /min Lorenza Haagen FAMILY PARTNER.MANAGER LEASING Work Phone: [facility] 09-01-2024 13:02-0400 SaO2% (BldA) [Mass fraction] 93 % Lorenza Hadodie FAMILY PARTNER.MANAGER LEASING Work Phone: [facility] 08-03-2024 09:44-0400 Diastolic blood pressure 74 mm[Hg] Emily Adams DO Work Phone: [facility] 08-03-2024 09:44-0400 Systolic blood pressure 142 mm[Hg] Emily Adams DO Work Phone: [facility] 08-03-2024 09:39-0400 Heart rate 86 /min Emily Adams DO Work Phone: [facility] 08-03-2024 09:39-0400 SaO2% (BldA) [Mass fraction] 96 % Emily Adams DO Work Phone: [facility] 05-26-2024 13:03-0400 Diastolic blood pressure 68 mm[Hg] Lorenza Haagen FAMILY PARTNER.MANAGER LEASING Work Phone: [facility] Comment on above: R arm 05-26-2024 13:03-0400 Systolic blood pressure 148 mm[Hg] Lorenza Haagen FAMILY PARTNER.MANAGER LEASING Work Phone: [facility] Comment on above: R arm 05-26-2024 13:00-0400 Heart rate 90 /min Lorenza Haagen FAMILY PARTNER.MANAGER LEASING Work Phone: [facility] 04-28-2024 12:58-0400 Body mass index (BMI) [Ratio] 37.6 kg/m2 Lorenza Haagen FAMILY PARTNER.MANAGER LEASING Work Phone: [facility] 04-28-2024 12:58-0400 Body weight 90.27 kg Lorenza Haagen FAMILY PARTNER.MANAGER LEASING Work Phone: [facility] 04-28-2024 12:58-0400 Diastolic blood pressure 74 mm[Hg] Lorenza Haagen FAMILY PARTNER.MANAGER LEASING Work Phone: [facility] Comment on above: L arm 04-28-2024 12:58-0400 Heart rate 95 /min Lorenza Haagen FAMILY PARTNER.MANAGER LEASING Work Phone: [facility] 04-28-2024 12:58-0400 Respiratory rate 16 /min Lorenza Haagen FAMILY PARTNER.MANAGER LEASING Work Phone: [facility] 04-28-2024 12:58-0400 SaO2% (BldA) [Mass fraction] 96 % Lorenza Vo FAMILY PARTNER.MANAGER LEASING Work Phone: [facility] 04-28-2024 12:58-0400 Systolic blood pressure 102 mm[Hg] Lorenza Vo FAMILY PARTNER.MANAGER LEASING Work Phone: [facility] Comment on above: L arm 02-12-2024 14:35-0500 Body mass index (BMI) [Ratio] 37.83 kg/m2 Hoda Cyr MD Work Phone: [facility] 02-12-2024 14:35-0500 Body weight 90.81 kg Hoda Cyr MD Work Phone: [facility] 02-12-2024 14:35-0500 Diastolic blood pressure 84 mm[Hg] Hoda Cyr MD Work Phone: [facility] Comment on above: 150/74 02-12-2024 14:35-0500 Heart rate 92 /min Hoda Cyr MD Work Phone: [facility] 02-12-2024 14:35-0500 SaO2% (BldA) [Mass fraction] 96 % Hoda Cyr MD Work Phone: [facility] 02-12-2024 14:35-0500 Systolic blood pressure 124 mm[Hg] Hoda Cyr MD Work Phone: [facility] Comment on above: 150/74 02-02-2024 14:07-0500 Body mass index (BMI) [Ratio] 37.41 kg/m2 Martin Benites FAMILY PARTNER.MANAGER LEASING Work Phone: [facility] 02-02-2024 14:07-0500 Body weight 89.81 kg Martin Benites FAMILY PARTNER.MANAGER LEASING Work Phone: [facility] 02-02-2024 14:07-0500 Diastolic blood pressure 70 mm[Hg] Martin Benites FAMILY PARTNER.MANAGER LEASING Work Phone: [facility] 02-02-2024 14:07-0500 Heart rate 101 /min Martin [place] FAMILY PARTNER.MANAGER LEASING Work Phone: [facility] 02-02-2024 14:07-0500 Respiratory rate 18 /min Martin Padillapster FAMILY PARTNER.MANAGER LEASING Work Phone: [facility] 02-02-2024 14:07-0500 SaO2% (BldA) [Mass fraction] 95 % Martin Joter FAMILY PARTNER.MANAGER LEASING Work Phone: [facility] 02-02-2024 14:07-0500 Systolic blood pressure 114 mm[Hg] Martin [place] FAMILY PARTNER.MANAGER LEASING Work Phone: [facility] 11-04-2023 09:36-0400 Diastolic blood pressure 70 mm[Hg] Emily Ellisle DO Work Phone: [facility] 11-04-2023 09:36-0400 Systolic blood pressure 146 mm[Hg] Emily Adams DO Work Phone: [facility] 11-04-2023 09:30-0400 Heart rate 94 /min Emily Adams DO Work Phone: [facility] 11-04-2023 09:30-0400 SaO2% (BldA) [Mass fraction] 97 % Emily Adams DO Work Phone: [facility] 10-28-2023 13:41-0400 Diastolic blood pressure 78 mm[Hg] Lorenza Haagen FAMILY PARTNER.MANAGER LEASING Work Phone: [facility] Comment on above: L arm 10-28-2023 13:41-0400 Heart rate 94 /min Lorenza Haagen FAMILY PARTNER.MANAGER LEASING Work Phone: [facility] 10-28-2023 13:41-0400 Respiratory rate 16 /min Lorenza Haagen FAMILY PARTNER.MANAGER LEASING Work Phone: [facility] 10-28-2023 13:41-0400 SaO2% (BldA) [Mass fraction] 97 % Lorenza Haagen FAMILY PARTNER.MANAGER LEASING Work Phone: [facility] 10-28-2023 13:41-0400 Systolic blood pressure 112 mm[Hg] Lorenza Vo APRKadeemMANAGER LEASING Work Phone: [facility] Comment on above: L arm 10-03-2023 15:06-0400 Diastolic blood pressure 72 mm[Hg] Britton Gannon DO Work Phone: [facility] Comment on above: L Arm 10-03-2023 15:06-0400 Systolic blood pressure 110 mm[Hg] Britton Gannon DO Work Phone: [facility] Comment on above: L Arm 10-03-2023 14:43-0400 Body height 154.9 cm Britton Gannon DO Work Phone: [facility] 10-03-2023 14:43-0400 Body mass index (BMI) [Ratio] 36.41 kg/m2 Britton Gannon DO Work Phone: [facility] 10-03-2023 14:43-0400 Body weight 87.4 kg Britton Gannon DO Work Phone: [facility] 10-03-2023 14:43-0400 Heart rate 108 /min Britton Gannon DO Work Phone: [facility] 10-03-2023 14:43-0400 SaO2% (BldA) [Mass fraction] 92 % Britton Gannon DO Work Phone: [facility] 09-29-2023 12:42-0400 Diastolic blood pressure 67 mm[Hg] Emily Adams DO Work Phone: [facility] 09-29-2023 12:42-0400 Systolic blood pressure 131 mm[Hg] Emily Adams DO Work Phone: [facility] 09-29-2023 12:35-0400 Heart rate 88 /min Emily Ellisle DO Work Phone: [facility] 09-29-2023 12:35-0400 SaO2% (BldA) [Mass fraction] 95 % Emily Adams DO Work Phone: [facility] 09-24-2023 13:11-0400 Diastolic blood pressure 70 mm[Hg] Lorenza Haagen FAMILY PARTNER.MANAGER LEASING Work Phone: [facility] Comment on above: R arm 09-24-2023 13:11-0400 Heart rate 78 /min Lorenza Haagen FAMILY PARTNER.MANAGER LEASING Work Phone: [facility] 09-24-2023 13:11-0400 Respiratory rate 16 /min Lorenza Haagen FAMILY PARTNER.MANAGER LEASING Work Phone: [facility] 09-24-2023 13:11-0400 SaO2% (BldA) [Mass fraction] 91 % Lorenza Haagen FAMILY PARTNER.MANAGER LEASING Work Phone: [facility] 09-24-2023 13:11-0400 Systolic blood pressure 132 mm[Hg] Lorenza Haagen FAMILY PARTNER.MANAGER LEASING Work Phone: [facility] Comment on above: R arm 08-08-2023 12:56-0400 Body mass index (BMI) [Ratio] 35.9 kg/m2 Lorenza Haagen FAMILY PARTNER.MANAGER LEASING Work Phone: [facility] 08-08-2023 12:56-0400 Body weight 86.18 kg Lorenza Haagen FAMILY PARTNER.MANAGER LEASING Work Phone: [facility] 08-08-2023 12:56-0400 Diastolic blood pressure 72 mm[Hg] Lorenza Haagen FAMILY PARTNER.MANAGER LEASING Work Phone: [facility] 08-08-2023 12:56-0400 Heart rate 96 /min Lorenza Haagen FAMILY PARTNER.MANAGER LEASING Work Phone: [facility] 08-08-2023 12:56-0400 Respiratory rate 16 /min Lorenza Haagen FAMILY PARTNER.MANAGER LEASING Work Phone: [facility] 08-08-2023 12:56-0400 SaO2% (BldA) [Mass fraction] 95 % Lorenza Haagen FAMILY PARTNER.MANAGER LEASING Work Phone: [facility] 08-08-2023 12:56-0400 Systolic blood pressure 114 mm[Hg] Lorenza Vo FAMILY PARTNER.MANAGER LEASING Work Phone: [facility] 07-23-2023 13:16-0400 Body mass index (BMI) [Ratio] 35.28 kg/m2 Martin Benites FAMILY PARTNER.MANAGER LEASING Work Phone: [facility] 07-23-2023 13:16-0400 Body weight 84.7 kg Martin Benites FAMILY PARTNER.MANAGER LEASING Work Phone: [facility] 07-23-2023 13:16-0400 Diastolic blood pressure 74 mm[Hg] Martin Benites FAMILY PARTNER.MANAGER LEASING Work Phone: [facility] 07-23-2023 13:16-0400 Heart rate 88 /min Martin Benites FAMILY PARTNER.MANAGER LEASING Work Phone: [facility] 07-23-2023 13:16-0400 SaO2% (BldA) [Mass fraction] 94 % Martin Benites FAMILY PARTNER.MANAGER LEASING Work Phone: [facility] 07-23-2023 13:16-0400 Systolic blood pressure 150 mm[Hg] Martin Benites FAMILY PARTNER.MANAGER LEASING Work Phone: [facility] 07-16-2023 10:37-0400 Body height 154.9 cm Rober Rubio MD Work Phone: [facility] 07-16-2023 10:37-0400 Body mass index (BMI) [Ratio] 35.52 kg/m2 Rober Rubio MD Work Phone: [facility] 07-16-2023 10:37-0400 Body weight 85.28 kg Rober Rubio MD Work Phone: [facility] 07-16-2023 10:37-0400 Diastolic blood pressure 72 mm[Hg] Rober Rubio MD Work Phone: [facility] 07-16-2023 10:37-0400 Heart rate 99 /min Rober Rubio MD Work Phone: [facility] 07-16-2023 10:37-0400 Systolic blood pressure 135 mm[Hg] Rober Rubio MD Work Phone: [facility] 02-05-2023 13:53-0500 SaO2% (BldA) [Mass fraction] 90 % Dr. Stevo Alcantara Work Phone: [facility] 02-05-2023 12:00-0500 Body temperature 98.5 [degF] Dr. Stevo Alcantara Work Phone: [facility] 02-05-2023 12:00-0500 Diastolic blood pressure 89 mm[Hg] Dr. Stevo Alcantara Work Phone: [facility] 02-05-2023 12:00-0500 Heart rate 107 /min Dr. Stevo Alcantara Work Phone: [facility] 02-05-2023 12:00-0500 Respiratory rate 18 /min Dr. Stevo Alcantara Work Phone: [facility] 02-05-2023 12:00-0500 Systolic blood pressure 133 mm[Hg] Dr. Stevo Alcantara Work Phone: [facility] 02-05-2023 06:00-0500 Inhaled oxygen flow rate 2 L/min Dr. Stevo Alcantara Work Phone: [facility] 02-03-2023 15:56-0500 Body height 154.[address] Stevo Alcantara Work Phone: [facility] 02-03-2023 15:56-0500 Body weight 84.[address] Stevo Alcantara Work Phone: [facility] 01-31-2023 17:04-0500 Body temperature 99.6 [degF] [facility] 01-31-2023 17:04-0500 Diastolic blood pressure 91 mm[Hg] [facility] 01-31-2023 17:04-0500 Heart rate 107 /min [facility] 01-31-2023 17:04-0500 Respiratory rate 20 /min [facility] 01-31-2023 17:04-0500 SaO2% (BldA) [Mass fraction] 96 % [facility] 01-31-2023 17:04-0500 Systolic blood pressure 113 mm[Hg] [facility] 01-31-2023 16:50-0500 Body height 154.94 cm [facility] 01-31-2023 16:50-0500 Body mass index (BMI) [Ratio] 35.3 kg/m2 [facility] 01-31-2023 16:50-0500 Body weight 84.82 kg [facility] 01-15-2022 13:58-0500 Body weight 81.65 kg Sandra Taylor APRN.MANAGER LEASING Work Phone: [facility] 01-15-2022 13:58-0500 Diastolic blood pressure 76 mm[Hg] Sandra Taylor APRN.MANAGER LEASING Work Phone: [facility] 01-15-2022 13:58-0500 Heart rate 108 /min Sandra Taylor APRN.MANAGER LEASING Work Phone: [facility] 01-15-2022 13:58-0500 SaO2% (BldA) [Mass fraction] 93 % Sandra Taylor APRN.MANAGER LEASING Work Phone: [facility] 01-15-2022 13:58-0500 Systolic blood pressure 117 mm[Hg] Sandra Taylor APRN.MANAGER LEASING Work Phone: [facility] 11-29-2021 12:01-0400 Body height 156 cm NA Monroe PA-C Work Phone: [facility] 11-29-2021 12:01-0400 Body weight 79.83 kg NA Monroe PA-C Work Phone: [facility] 11-29-2021 12:01-0400 Diastolic blood pressure 62 mm[Hg] NA Monroe PA-C Work Phone: [facility] 11-29-2021 12:01-0400 Heart rate 109 /min NA Monroe PA-C Work Phone: [facility] 11-29-2021 12:01-0400 Respiratory rate 20 /min NA Monroe PA-C Work Phone: [facility] 11-29-2021 12:01-0400 SaO2% (BldA) [Mass fraction] 96 % NA Monroe PA-C Work Phone: [facility] 11-29-2021 12:01-0400 Systolic blood pressure 128 mm[Hg] NA Monroe PA-C Work Phone: [facility] 08-27-2021 10:00-0400 Body temperature 97 [degF] Rm Lo MD Work Phone: [facility] 08-27-2021 10:00-0400 Diastolic blood pressure 64 mm[Hg] Rm Lo MD Work Phone: [facility] 08-27-2021 10:00-0400 Heart rate 82 /min Rm Lo MD Work Phone: [facility] 08-27-2021 10:00-0400 Respiratory rate 24 /min Rm Lo MD Work Phone: [facility] 08-27-2021 10:00-0400 SaO2% (BldA) [Mass fraction] 94 % Rm Lo MD Work Phone: [facility] 08-27-2021 10:00-0400 Systolic blood pressure 112 mm[Hg] Rm Lo MD Work Phone: [facility] 08-27-2021 08:44-0400 Body height 154.9 cm Rm Lo MD Work Phone: [facility] 08-27-2021 08:44-0400 Body weight 81.65 kg Rm Lo MD Work Phone: [facility] 06-25-2021 13:06-0400 Body weight 81.65 kg Ro Babb APRN.MANAGER LEASING Work Phone: [facility] 06-25-2021 13:06-0400 Diastolic blood pressure 65 mm[Hg] Ro Babb APRN.MANAGER LEASING Work Phone: [facility] 06-25-2021 13:06-0400 Heart rate 100 /min Ro Babb APRN.MANAGER LEASING Work Phone: [facility] 06-25-2021 13:06-0400 Systolic blood pressure 132 mm[Hg] Ro Babb APRN.CNP Work Phone: [facility] Encounters Encounter Date Encounter Type Care Provider Facility Start: 09-20-2024 Evaluation and manag ement of inpatient Dr. Hari Iniguze DO -Progressive Care Unit Work Phone: Start: 09-01-2024 End: 09-01-2024 Office outpatient visit 25 minutes Lorenza Vo APRN.MANAGER LEASING Work Phone: [facility] Comment on above: Chronic atrial fibri llation (HCC) (Primary Dx); Type 2 diabetes mellitus without complication, with long-term current use of insulin (HCC); Essential hypertension; Hyperlipidemia, unspecified hyperlipidemia type; Atrial fibrillation with RVR (HCC); Type 2 diabetes mellitus with hyperglycemia, without long-term current use of insulin (HCC); COPD with chronic bronchitis (HCC) Start: 09-01-2024 End: 09-01-2024 [facility] Facility:[facility] Start: 08-25-2024 End: 08-25-2024 [facility] Start: 08-25-2024 End: 08-25-2024 Patient encounter procedure Vivienne Izquierdo MA [facility] Comment on above: Population Health Na vigation Outreach ([facility] ) Start: 08-03-2024 End: 08-03-2024 Patient encounter procedure Emily Adams DO Work Phone: Vascular Surgery Comment on above: Left subclavian flory ry occlusion (Primary Dx); Carotid stenosis, asymptomatic, bilateral Start: 08-03-2024 End: 08-03-2024 [facility] Facility:[facility] Start: 07-15-2024 End: 07-15-2024 [facility] Facility:[facility] Start: 07-04-2024 End: 07-05-2024 Refill Martin Benites APRN.MANAGER LEASING Work Phone: Pulmonary Medicine Comment on above: Refill Request Start: 06-28-2024 End: 06-28-2024 ambulatory Becky Farias MA [facility] Start: 06-28-2024 End: 06-28-2024 Patient encounter procedure Becky Farias MA [facility] Comment on above: Population Health Na vigation Outreach (ACO, High Risk /) Start: 05-28-2024 End: 05-28-2024 Telephone encounter Rober Rubio MD Work Phone: [facility] [place] Comment on above: Results Start: 05-26-2024 End: 05-26-2024 ambulatory [facility] Facility:[facility] Start: 05-26-2024 End: 05-26-2024 Office outpatient visit 15 minutes Lorenza Vo FAMILY PARTNER.MANAGER LEASING Work Phone: [facility] [place] Comment on above: Type 2 diabetes demetrius itus without complication, without long- term current use of insulin (HCC) (Primary Dx) Start: 05-26-2024 End: 05-26-2024 [facility] Facility:[facility] Start: 05-13-2024 End: 05-13-2024 ambulatory [facility] Facility:[facility] Start: 05-12-2024 End: 05-12-2024 ambulatory Lorenza Vo FAMILY PARTNER.MANAGER LEASING Work Phone: [facility] [place] Comment on above: amilcar yoo Start: 04-28-2024 End: 05-11-2024 Patient encounter procedure Vivienne Izquierdo [facility] Comment on above: Population Health Na vigation Outreach ([facility]) Start: 04-28-2024 End: 04-28-2024 Office outpatient visit 25 minutes Lorenza Vo FAMILY PARTNER.MANAGER LEASING Work Phone: [facility] [place] Comment on above: Essential hypertensi on (Primary Dx); Atrial fibrillation with RVR (HCC); PVD (peripheral vascular disease) (HCC); Type 2 diabetes mellitus with hyperglycemia, without long-term current use of insulin (HCC); Lung nodule; COPD with chronic bronchitis (HCC); Chronic anticoagulation; Mixed hyperlipidemia Start: 04-28-2024 End: 05-11-2024 ambulatory Vivienne Izquierdo MA [facility] Start: 02-29-2024 End: 03-03-2024 Refill Martin Benites APRN.MANAGER LEASING Work Phone: Pulmonary Medicine Comment on above: Refill Request Start: 02-12-2024 End: 02-12-2024 Patient encounter procedure Hoda Cyr MD Work Phone: Pulmonary Medicine Comment on above: 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) (Primary Dx); Former smoker; Class 2 obesity; Atelectasis Start: 02-12-2024 End: 02-12-2024 ambulatory [facility] Facility:[facility] Start: 02-07-2024 End: 02-09-2024 Get Medical Advice Rober Rubio MD Work Phone: [facility] [place] Comment on above: Medication unable to order Start: 02-02-2024 End: 02-02-2024 Patient encounter procedure Martin Benites APRN.MANAGER LEASING Work Phone: Pulmonary Medicine Comment on above: Multiple lung nodule s (Primary Dx); Encounter for screening for lung cancer; Former tobacco use Start: 02-02-2024 End: 02-02-2024 [facility] Facility:[facility] Start: 02-02-2024 End: 02-02-2024 Subsequent hospital visit by physician [facility] (I-Stat) Work Phone: Cat Scan Comment on above: Lung nodules [R91.8] Start: 01-21-2024 End: 01-26-2024 ambulatory Rober Rubio MD Work Phone: Internal Medicine [place] [id number] Start: 12-23-2023 End: 12-23-2023 Refill Rober Rubio MD Work Phone: [facility] [place] Comment on above: Refill Request Start: 11-07-2023 End: 11-07-2023 Get Medical Advice Rober Rubio MD Work Phone: [facility] [place] Comment on above: Eliquis refill? Start: 11-04-2023 End: 11-04-2023 [facility] Facility:[facility] Start: 11-04-2023 End: 11-04-2023 Patient encounter procedure Emily Adams DO Work Phone: Vascular Surgery Comment on above: PVD (peripheral vasc ular disease) (HCC) (Primary Dx); Carotid stenosis, asymptomatic, bilateral Start: 10-30-2023 End: 10-30-2023 Refill Rober Rubio MD Work Phone: [facility] [place] Comment on above: Refill Request Start: 10-28-2023 End: 10-28-2023 Telephone encounter Lorenza Vo APRN.CNP Work Phone: [facility] [place] Comment on above: medication informati on Start: 10-28-2023 End: 10-28-2023 Office outpatient visit 15 minutes Loren[facility]N.CNP [facility] Comment on [facility]: Primary hypertension (Primary Dx) Start: 10-28-2023 End: 10-28-2023 [facility] Start: 10-16-2023 End: 10-16-2023 Refill Lorenza Vo APRN.CNP Work Phone: [facility] [place] Comment on above: Med Change Request Start: 10-03-2023 End: 10-03-2023 [facility] Start: 10-03-2023 End: 10-03-2023 Patient encounter procedure Britton Gannon DO Work Phone: Cardiology Comment on above: Coronary artery calc ification (Primary Dx); Primary hypertension; Mixed hyperlipidemia; Paroxysmal atrial fibrillation (HCC); On apixaban therapy Start: 09-29-2023 End: 09-29-2023 [facility] Start: 09-29-2023 End: 09-29-2023 Patient encounter procedure Emily Adams DO Work Phone: Vascular Surgery Comment on above: Carotid stenosis, as ymptomatic, bilateral (Primary Dx); PVD (peripheral vascular disease) (HCC); Left subclavian artery occlusion Start: 09-24-2023 End: 09-24-2023 Office outpatient visit 25 minutes Lorenza Vo APRN.MANAGER LEASING Work Phone: [facility] [place] Comment on above: Postural dizziness ( Primary Dx); Blood pressure alteration Start: 09-24-2023 End: 09-24-2023 ambulatory [facility] Facility:[facility] Start: 09-18-2023 Telephone encounter Rober Rubio MD Work Phone: [facility] [place] Comment on above: Results Start: 09-17-2023 End: 09-17-2023 [facility] Facility:[facility] Start: 08-08-2023 End: 08-08-2023 Office outpatient visit 25 minutes Lorenza Vo APRN.MANAGER LEASING Work Phone: [facility] [place] Comment on above: Postural dizziness ( Primary Dx); Type 2 diabetes mellitus without complication, with long-term current use of insulin ([facility]); Blood pressure alteration; Type 2 diabetes mellitus with hyperglycemia, without long-term current use of insulin ([facility]); Vitamin D deficiency Start: 08-01-2023 Orders Only Martin jacobs APRN.MANAGER LEASING Work Phone: [facility] Pulmonary Comment on above: Lung nodules (Primar y Dx) Start: 07-23-2023 End: 07-23-2023 Patient encounter procedure Martin Benites APRN.MANAGER LEASING Work Phone: Pulmonary Medicine Comment on above: Multiple lung nodule s (Primary Dx); Encounter for screening for lung cancer; Former tobacco use; COPD with chronic bronchitis (HCC); Acute bronchiolitis due to unspecified organism Start: 07-23-2023 ambulatory [facility] Facility :[facility] Start: 07-23-2023 End: 07-23-2023 Subsequent hospital visit by physician [facility] Radiology Comment on above: Personal history of tobacco use, presenting hazards to health [Z87.891] Start: 07-17-2023 Telephone encounter Rober Rubio MD Work Phone: Pulmonology [facility] Comment on above: Results Start: 07-16-2023 [...] Rober Rubio MD Work Phone: [facility] [place] Comment on above: Refill Request Start: 05-15-2023 Telephone encounter Rober Rubio MD Work Phone: [facility] [place] Comment on above: Results Start: 02-24-2023 End: 02-24-2023 Subsequent hospital visit by physician [facility] [place] Work Phone: Radiology Comment on above: Congestive heart nathaly lure, unspecified HF chronicity, unspecified heart failure type (HCC) [I50.9] Start: 02-05-2023 Non-patient / Non-visit Dr. Lucas Work Phone: [facility] Work Phone: Start: 02-04-2023 Non-patient / Non-visit Dr. Lucas Work Phone: [facility] Work Phone: Start: 02-03-2023 ambulatory [facility] Facility:[facility] Start: 02-03-2023 Non-patient / Non-visit Dr. Lucas Work Phone: [facility] Start: 02-02-2023 End: 02-02-2023 ambulatory Salvador Siri Facility:[facility] Start: 02-02-2023 Non-patient / Non-visit Dr. Lcuas Work Phone: [facility] Work Phone: Start: 02-01-2023 Non-patient / Non-visit Dr. Lucas Work Phone: [facility] [facility] Work Phone: Start: 01-31-2023 End: 02-05-2023 Evaluation and management of inpatient Deborah Barron Facility:[facility] Start: 01-31-2023 ambulatory Meng Wells Fac ility:[facility] Start: 01-31-2023 End: 02-05-2023 Evaluation and management of inpatient [facility] Work Phone: Start: 01-22-2023 ambulatory Rober Rubio MD Work Phone: [facility] Start: 10-07-2022 Refill Rober Rubio MD Work Phone: [facility] Comment on above: Refill Request Start: 06-17-2022 ambulatory Vivienne Izquierdo MA IN [facility] Start: 06-17-2022 Patient encounter procedure Vivienne Izquierdo MA [facility] Comment on above: Population Health Na vigation Outreach (ANNUAL MEDICARE WELLNESS ) Start: 06-04-2022 ambulatory Rober Rubio MD Work Phone: [facility] Start: 03-18-2022 Refill Rober Rubio MD Work Phone: [facility] Comment on above: Refill Request Start: 02-20-2022 ambulatory Rober Rubio MD Work Phone: Internal [facility] Start: 01-15-2022 End: 01-15-2022 Patient encounter procedure Sandra Taylor APRN.MANAGER LEASING Work Phone: Pulmonary Medicine Comment on above: Lung nodules (Primar y Dx); Former tobacco use Start: 01-15-2022 End: 01-15-2022 Subsequent hospital visit by physician [facility] Work Phone: Radiology Comment on above: Asymptomatic postmen opausal status [Z78.0] Start: 12-20-2021 End: 12-20-2021 Subsequent hospital visit by physician [facility] Radiology Comment on above: Lung nodules [R91.8] Start: 12-14-2021 Orders Only Becky Matta APRN.MANAGER LEASING Work Phone: Pulmonary Medicine Comment on above: Lung nodules (Primar y Dx) Start: 12-13-2021 Telephone encounter Rober Rubio MD Work Phone: [facility] Comment on above: Orders Start: 12-01-2021 Telephone encounter Nicola Britton Monroe PA-C Work Phone: [facility] Comment on above: Orders Start: 11-29-2021 End: 11-29-2021 Patient encounter procedure Nicola Britton Monroe PA-C Work Phone: [facility] [place] Comment on above: Medicare annual [facility], subsequent (Primary Dx); Primary hypertension; Coronary [...] 11-08-2021 Refill Rober Rubio MD Work Phone: [facility] Comment on above: Refill Request Start: 09-18-2021 Refill Hoda Cyr MD Work Phone: Pulmonary Medicine Comment on above: Refill Request Start: 09-18-2021 End: 09-18-2021 Patient encounter procedure Sandra Taylor SANDY.MANAGER LEASING Work Phone: Pulmonary Medicine Comment on above: [...] by physician Rm Lo MD Work Phone: [facility] Endoscopy Comment on above: Screening for colon cancer [Z12.11] Start: 07-11-2021 Telephone encounter Rober Rubio MD Work Phone: Family [facility] [place] Comment on above: Orders Start: 07-03-2021 Refill Rober Rubio MD Work Phone: Family [facility] [place] Comment on above: Refill Request Start: 06-25-2021 End: 06-25-2021 Patient encounter procedure Roberenice Babb APRN.MANAGER LEASING Work Phone: Cardiology Comment on above: Primary hypertension (Primary Dx); Coronary artery calcification; Aortic valve calcification; Mixed hyperlipidemia Start: 06-13-2021 Refill Rober Rubio MD Work Phone: [facility] [place] Comment on above: Refill Request Start: 04-10-2021 Telephone encounter Gris taveras PA-C Work Phone: General Surgery Comment on above: 08-27-2021 Colon Med feroz Start: 01-16-2021 Telephone encounter Rober Rubio MD Work Phone: [facility] [place] Comment on above: Appointment Start: 01-20-2020 End: 01-20-2020 Subsequent hospital visit by physician [facility] [place] Work Phone: Radiology Comment on above: [...] Activity Detail Author Start: 08-27-2026 Colonoscopy COLONOSCOPY [facility] Start: 08-27-2026 COLORECTAL CANCER SCREENING COLORECTAL CANCER SCREENING [facility] Start: 08-27-2026 Screening for malign ant neoplasm of colon [facility] Start: 09-01-2025 Annual PCP Team Juliette quynh Disease Visit Annual PCP Team Chronic Disease Visit [facility] Start: 05-26-2025 Annual PCP Team Juliette beauchamp Disease Visit Annual PCP Team Chronic Disease Visit [facility] Start: 05-26-2025 Hepatitis B surface antibody level LDL Cholesterol [facility] Start: 05-20-2025 Glaucoma screening Dilated Retinal E xam [facility] Start: 04-28-2025 Annual PCP Team Juliette beauchamp Disease Visit Annual PCP Team Chronic Disease Visit [facility] Start: 04-28-2025 BP Controlled (<130/80) BP Controlle d (<130/80) [facility] Start: 02-15-2025 End: 02-15-2025 Patient encounter procedure Vasculary Surgery Comment on above: Dx: Left subclavian artery occlusion [I70.8]; Carotid stenosis, asymptomatic, bilateral [I65.23] Follow up Start: 02-07-2025 End: 02-07-2025 Patient encounter procedure Cat Scan Comment on above: LUNG SCREENING Start: 02-01-2025 BP Controlled (<130/80) BP Controlle d (<130/80) [facility] Start: 02-01-2025 Screening for malign ant neoplasm of lung Lung Cancer Screening [facility] Start: 11-25-2024 Hemoglobin A1c measurement HbA1C [facility] Start: 10-27-2024 Annual PCP Team Juliette beauchamp Disease Visit Annual PCP Team Chronic Disease Visit [facility] Start: 10-27-2024 BP Controlled (<130/80) BP Controlle d (<130/80) [facility] Start: 10-18-2024 Influenza vaccination Influenza Vacc ine (#1) [facility] Start: 10-14-2024 End: 10-14-2024 Patient encounter procedure 10/14/2024 11:30 AM EDT Office Visit Cardiology [address] [place] [phone] Emilee Newton APRN.MANAGER LEASING [address] [place] [phone] follow up Cardiology Comment on above: follow up Start: 10-09-2024 End: 10-09-2024 Patient encounter procedure 10/09/2024 11:00 AM EDT Office Visit [facility] [place] [address] [place] [address] Rober Rubio MD [address] [place] [address] 1 month follow up [facility] [place] Comment on above: 1 month follow up Start: 10-02-2024 BP Controlled (<130/80) BP Controlle d (<130/80) [facility] Start: 09-23-2024 Annual PCP Team Accountant Certified Public quynh Disease Visit Annual PCP Team Chronic Disease Visit [facility] Start: 09-21-2024 [facility] Start: 09-20-2024 Bacteria identified in Sputum by Culture [facility] Start: 09-20-2024 Legionella pneumophi la Ag [Presence] in Urine [facility] Start: 09-20-2024 Streptococcus pneumo niae antigen assay [facility] Start: 09-20-2024 Verification routine [place] Start: 09-20-2024 Admission procedure [facility] Start: 09-20-2024 Hospital admission, emergency, from emergency room, medical nature [facility] Start: 09-20-2024 End: 09-20-2024 [facility] Start: 09-20-2024 End: 09-20-2024 Administration of blood product [facility] Start: 09-20-2024 End: 09-20-2024 [facility] Start: 09-20-2024 Bacteria identified in Blood by Culture Blood Culture [facility] Start: 09-01-2024 End: 12-01-2024 Hemoglobin A1c in Blood HEMOGLOBIN A1C Lab Routine Type 2 diabetes mellitus without complication, with long-term current use of insulin (HCC) Expected: 09/01/2024, Expires: 12/01/2024 [facility] Work Phone: Comment on above: Expected: 09/01/2024 , Expires: 12/01/2024 Start: 09-01-2024 End: 09-01-2024 Patient encounter procedure 09/01/2024 1:00 PM EDT Office Visit Family [facility] [address] [place] [address] Lorenza Vo APRN.MANAGER LEASING [address] [place] [address] 1 month follow up (40 min per CH) Family [facility] Comment on above: 1 month follow up (4 0 min per CH) Start: 08-27-2024 Colonoscopy COLONOSCOPY [facility] Start: 08-27-2024 COLORECTAL CANCER SCREENING COLORECTAL CANCER SCREENING [facility] Start: 08-07-2024 Annual PCP Team Accountant Certified Public quynh Disease Visit Annual PCP Team Chronic Disease Visit [facility] Start: 08-07-2024 BP Controlled (<130/80) BP Controlle d (<130/80) [facility] Start: 08-07-2024 Diabetic foot examination Diabetic F oot Exam [facility] Start: 07-22-2024 Screening for malign ant neoplasm of lung Lung Cancer Screening [facility] Start: 07-15-2024 Annual PCP Team Accountant Certified Public qunyh Disease Visit Annual PCP Team Chronic Disease Visit [facility] Start: 07-15-2024 Hepatitis B surface antibody level LDL Cholesterol [facility] Start: 07-15-2024 End: 07-15-2024 Patient encounter procedure Vasculary Surgery Comment on above: PVD (peripheral vasc ular disease) (HCC) [I73.9] Carotid stenosis, as ymptomatic, bilateral [I65.23] Start: 07-01-2024 Covid-19 Vaccine ( season) Covid-19 Vaccine () [facility] Start: 06-27-2024 End: 09-26-2024 Hepatic function 2000 panel - Serum or Plasma HEPATIC FUNCTION PNL Lab Routine Fatty liver Expected: 06/27/2024, Expires: 09/26/2024 [facility] Work Phone: Comment on above: Expected: 06/27/2024 , Expires: 09/26/2024 Start: 05-26-2024 End: 05-26-2024 Patient encounter procedure 05/26/2024 1:00 PM EDT Office Visit [facility] [address] [place], [place] [address] Lorenza Vo APRN.MANAGER LEASING [address] [place] [address] 1 month follow up (40 min per CH) [facility] Comment on above: 1 month follow up (4 0 min per CH) Start: 05-25-2024 End: 05-25-2024 Patient encounter procedure 05/25/2024 2:30 PM EDT Office Visit Vascular Surgery [address] [place], [place] [id number] Emily Adams, [address] [place] [address] 6 month follow up after testing Vascular Surgery Comment on above: [address] testing Start: 05-25-2024 End: 05-25-2024 Patient encounter procedure Vasculary Surgery Comment on above: PVD (peripheral vasc ular disease) (HCC) [I73.9] Carotid stenosis, as ymptomatic, bilateral [I65.23] Start: 05-13-2024 End: 05-13-2024 Nursing evaluation of patient and report 05/13/2024 10:30 AM EDT Nurse Visit [facility] [address] [place], [place] [id number] Nurse, Mo [address] [place], [place] [phone] Mounjaro instruction [facility] Comment on above: Mounjaro instruction Start: 04-28-2024 End: 07-28-2024 CBC W Auto Differential panel - Blood COMPLETE BLOOD COUNT AND DIFFERENTIAL Lab Routine Chronic anticoagulation Expected: 04/28/2024, Expires: 07/28/2024 [facility] Work Phone: Comment on above: Expected: 04/28/2024 , Expires: 07/28/2024 Start: 04-28-2024 End: 07-28-2024 Comprehensive metabolic 2000 panel - Serum or Plasma COMPREHENSIVE METABOLIC PANEL Lab Routine Essential hypertension Expected: 04/28/2024, Expires: 07/28/2024 [facility] Comment on above: Expected: 04/28/2024 , Expires: 07/28/2024 Start: 04-28-2024 End: 07-28-2024 Hemoglobin A1c in Blood HEMOGLOBIN A1C Lab Routine Type 2 diabetes mellitus with hyperglycemia, without long-term current use of insulin (HCC) Expected: 04/28/2024, Expires: 07/28/2024 [facility] Comment on above: Expected: 04/28/2024 , Expires: 07/28/2024 Start: 04-28-2024 End: 07-28-2024 LIPID PANEL, NONFASTING LIPID PANEL, NONFASTING Lab Routine Mixed hyperlipidemia Expected: 04/28/2024, Expires: 07/28/2024 [facility] Comment on above: Expected: 04/28/2024 , Expires: 07/28/2024 Start: 04-28-2024 End: 04-28-2024 Patient encounter procedure [facility] Comment on above: 6 month follow up Start: 04-15-2024 End: 04-15-2024 Patient encounter procedure 04/15/2024 2:30 PM EST Office Visit Cardiology [address] [phone] Emilee Newton APRN.MANAGER LEASING [address] [place] [address] 6 month follow up Cardiology Comment on above: 6 month follow up Start: 04-14-2024 Annual PCP Team Accountant Certified Public quynh Disease Visit Annual PCP Team Chronic Disease Visit [facility] Start: 04-14-2024 BP Controlled (<130/80) BP Controlle d (<130/80) [facility] Start: 02-25-2024 Hepatitis B surface antibody level LDL Cholesterol [facility] Start: 02-18-2024 Advance Directive Discussion Advance Directive Discussion [facility] Start: 02-12-2024 End: 02-12-2024 Patient encounter procedure 02/12/2024 2:45 PM EST Office Visit Pulmonary Medicine [address] [place] [address] Hoda Cyr MD [address] [place] [address] follow up Pulmonary Medicine Comment on above: follow up Start: 02-02-2024 End: 02-02-2024 Patient encounter procedure Cat Scan Comment on above: 6 month f/u Lung nod ules Start: 01-16-2024 Hemoglobin A1c measurement HbA1C [facility] Start: 11-04-2023 End: 11-04-2023 Patient encounter procedure 11/04/2023 9:15 AM EDT Office Visit Vascular Surgery [address] [facility] [place] [address] Emily Adams, [address] [place], [place] [id number] Follow up Vascular Surgery Comment on above: Follow up Start: 10-30-2023 End: 10-30-2023 Patient encounter procedure Vasculary Surgery Comment on above: Carotid stenosis, as ymptomatic, bilateral [I65.23] Start: 10-28-2023 End: 10-28-2023 Patient encounter procedure 10/28/2023 1:40 PM EDT Office Visit [facility] [place] [address] [place], [place] [phone] Lorenza Vo APRN.MANAGER LEASING [address] [place] [address] 1 month follow up [facility] [place] Comment on above: 1 month follow up Start: 10-19-2023 Covid-19 Vaccine ( season) Covid-19 Vaccine ( season) [facility] Start: 10-19-2023 Covid-19 Vaccine ( season) Covid-19 Vaccine ( season) [facility] Start: 10-19-2023 Influenza vaccination Influenza Vacc ine (#1) [facility] Start: 10-03-2023 End: 10-03-2023 Patient encounter procedure 10/03/2023 2:40 PM EDT Office Visit Cardiology [address] [address] Britton Gannon, DO [address] [place] [address] Gannon. Previously seen in [place] [facility] Comment on above: New to Dr Gannon. Pre viously seen in [place] Start: 09-29-2023 End: 09-29-2023 Patient encounter procedure 09/29/2023 12:30 PM EDT Office Visit Vascular Surgery [address] [phone] Emily Adams, DO [address] [place] [address] PVD (peripheral vascular disease) (HCC) [I73.9] Vascular Surgery Comment on above: PVD (peripheral vasc ular disease) (HCC) [I73.9] Start: 09-24-2023 End: 09-24-2023 Patient encounter procedure 09/24/2023 1:00 PM EDT Office Visit Family [facility] [address] [place], [place] [id number] Lorenza Vo APRN.MANAGER LEASING [address] [place], [place] [phone] 1 month follow up Family [facility] Comment on above: 1 month follow up Start: 09-17-2023 End: 09-17-2023 Patient encounter procedure 09/17/2023 12:30 PM EDT Office Visit Vasculary Surgery [address] [place], [place] [phone] Blood pressure alteration [R68.89]; Type 2 diabetes [...] unspecified hyperlipidemia type Expected: 08/28/2023, Expires: 11/27/2023 [facility] Work Phone: Comment on above: Expected: 08/28/2023 , Expires: 11/27/2023 Start: 08-28-2023 End: 11-27-2023 Lipid 1996 panel - Serum or Plasma LIPID PANEL BASIC Lab Routine Hyperlipidemia, unspecified hyperlipidemia type Expected: 08/28/2023, Expires: 11/27/2023 [facility] Comment on above: Expected: 08/28/2023 , Expires: 11/27/2023 Start: 08-28-2023 End: 08-28-2023 Patient encounter procedure 08/28/2023 9:20 AM EDT Office Visit Cardiology [facility] [place], [place] [phone] Britton Gannon DO [address] [place], [place] [phone] Atrial fibrillation with RVR (HCC) [I48.91] Cardiology Comment on above: Atrial fibrillation with RVR (HCC) [I48.91] Start: 08-25-2023 Hemoglobin A1c measurement HbA1C [facility] Start: 08-08-2023 End: 08-08-2023 Patient encounter procedure 08/08/2023 1:00 PM EDT Office Visit [facility] [place] [address] [place] [address] Lorenza Vo APRN.MANAGER LEASING [address] [place], [place] [id number] 2 week follow up [facility] [place] Comment on above: 2 week follow up Start: 07-23-2023 End: 07-23-2023 Patient encounter procedure Radiology Comment on above: CT [facility] Start: 07-15-2023 End: 07-15-2023 Patient encounter procedure 07/15/2023 1:00 PM EDT Office Visit [facility] [place] [address] [place] [address] Nicola Monroe PA-C [address] [place] [address] 3 month follow up [facility] [place] Comment on above: 3 month follow up Start: 05-09-2023 Shingrix Vaccine (3 of 3) Gutierres grix Vaccine (3 of 3) [facility] Start: 03-30-2023 Covid-19 Vaccine ( season) Covid-19 Vaccine () [facility] Start: 02-17-2023 Advance Directive Discussion Advance Directive Discussion [facility] Start: 02-17-2023 Behavioral Health Screening Behavioral Health Screening [facility] Start: 02-05-2023 Patient discharge [facility] Start: 02-04-2023 Care planning and pr oblem solving actions [facility] Start: 02-04-2023 [facility] Start: 02-03-2023 Care planning and pr oblem solving actions [facility] Start: 02-01-2023 Respiratory secretio n precautions [facility] Start: 01-31-2023 Following clinical pathway protocol [facility] Start: 01-31-2023 Assessment of risk o f venous thromboembolism [facility] Start: 01-31-2023 Care regimes management [facility] Start: 01-31-2023 Insertion of cathete r into peripheral vein [facility] Start: 01-31-2023 Measuring intake and output [facility] Start: 01-31-2023 Notification of physician [facility] Start: 01-31-2023 Oxygen therapy [facility] Start: 01-31-2023 Providing care accor ding to standard [facility] Start: 01-31-2023 Provision of activit y privileges [facility] Start: 01-31-2023 [facility] Start: 01-31-2023 Admission procedure [facility] Start: 01-31-2023 Hospital admission, emergency, from emergency room, medical nature [facility] Start: 01-31-2023 Inhalation therapy procedure [facility] Start: 01-15-2023 BP CONTROLLED (<130/80) BP CONTROLLE D (<130/80) [facility] Start: 12-22-2022 Hemoglobin A1c/Hemoglobin.total in Blood HBA1C [facility] Start: 12-20-2022 Influenza vaccination LUNG CANCER SC REEJOSE [facility] Start: 11-03-2023 Screening for malign ant neoplasm of lung Lung Cancer Screening [facility] Start: 11-29-2022 3 comp foot exam completed DIABETIC FOOT EXAM [facility] Start: 11-29-2022 ANNUAL PCP TEAM WOOD FLOOR LAYER QUYNH DISEASE VISIT ANNUAL PCP TEAM CHRONIC DISEASE VISIT [facility] Start: 11-29-2022 BP CONTROLLED (<130/80) BP CONTROLLE D (<130/80) [facility] Start: 11-29-2022 Diabetic foot examination Diabetic F oot Exam [facility] Start: 11-29-2022 Hepatitis B screening URINE AL BUMIN:CREATININE RATIO [facility] Start: 11-29-2022 Hepatitis B surface antibody level LDL CHOLESTEROL [facility] Start: 11-29-2022 Medicare Annual Well ness Visit Medicare Annual Wellness Visit [facility] Start: 10-18-2022 Influenza vaccination INFLUENZA (#1) [facility] Start: 08-15-2022 Glaucoma screening Dilated Retinal E xam [facility] Start: 08-15-2022 Hepatitis C antibody , confirmatory test DILATED RETINAL EXAM [facility] Start: 06-04-2022 End: 08-04-2022 Hemoglobin A1c in Blood HGB A1C Lab Routine Type 2 diabetes mellitus without complication, without long-term current use of insulin (HCC) Expected: 06/04/2022, Expires: 08/04/2022 [facility] Work Phone: Comment on above: Expected: 06/04/2022 , Expires: 08/04/2022 Start: 06-02-2022 COVID-19 VACCINE (5 - Pfizer series) COVID-19 VACCINE (5 - Pfizer series) [facility] Start: 05-30-2022 Hemoglobin A1c/Hemoglobin.total in Blood HBA1C [facility] Start: 04-10-2022 ANNUAL PCP TEAM WOOD FLOOR LAYER QUYNH DISEASE VISIT ANNUAL PCP TEAM CHRONIC DISEASE VISIT [facility] Start: 03-21-2022 Influenza vaccination LUNG CANCER SC REENING [facility] Start: 03-01-2022 End: 05-01-2022 Hemoglobin A1c in Blood HGB A1C Lab Routine Type 2 diabetes mellitus without complication, with long-term current use of insulin (HCC) Expected: 03/01/2022, Expires: 05/01/2022 [facility] Work Phone: Comment on above: Expected: 03/01/2022 , Expires: 05/01/2022 Start: 02-17-2022 ADVANCE DIRECTIVE DISCUSSION ADVANCE DIRECTIVE DISCUSSION [facility] Start: 02-17-2022 DEPRESSION ASSESSMENT DEPRESSION ASS ESSMENT [facility] Start: 12-29-2021 Hepatitis B surface antibody level LDL CHOLESTEROL [facility] Start: 12-01-2021 End: 01-31-2022 Hemoglobin A1c in Blood HGB A1C Lab Routine Type 2 diabetes mellitus without complication, without long-term current use of insulin (HCC) Expected: 12/01/2021, Expires: 01/31/2022 [facility] Work Phone: Comment on above: Expected: 12/01/2021 , Expires: 01/31/2022 Start: 11-29-2021 End: 01-29-2022 25-hydroxyvitamin D3 [Mass/volume] in Serum or Plasma VITAMIN D 25 HYDROXY Lab Routine Vitamin D deficiency Expected: 11/29/2021, Expires: 01/29/2022 [facility] Work Phone: Comment on above: Expected: 11/29/2021 , Expires: 01/29/2022 Start: 11-29-2021 End: 01-29-2022 ALBUMIN/CREAT RATIO RND UR [facility] Work Phone: Comment on above: Expected: 11/29/2021 , Expires: 01/29/2022 Start: 10-18-2021 Influenza vaccination INFLUENZA (#1) [facility] Start: 07-11-2021 End: 11-11-2021 SARS-CoV-2 (COVID-19) RNA [Presence] in Respiratory specimen by ERNESTINE with probe detection ASYMPTOMATIC ELECTIVE COVID-19 Microbiology Routine Encounter for screening laboratory testing for COVID-19 virus in asymptomatic patient Expected: 07/11/2021, Expires: 11/11/2021 [facility] Work Phone: Comment on above: Expected: 07/11/2021 , Expires: 11/11/2021 Start: 06-30-2021 COVID-19 VACCINE (4 - Booster for Pfizer series) COVID-19 VACCINE (4 - Booster for Pfizer series) [facility] Start: 06-28-2021 Hemoglobin A1c/Hemoglobin.total in Blood HBA1C [facility] Start: 04-27-2021 COVID-19 VACCINE (4 - Booster for Pfizer series) COVID-19 VACCINE (4 - Booster for Pfizer series) [facility] Start: 02-17-2021 ADVANCE DIRECTIVE DISCUSSION ADVANCE DIRECTIVE DISCUSSION [facility] Start: 02-17-2021 DEPRESSION ASSESSMENT DEPRESSION ASS ESSMENT [facility] Start: 03-10-2020 Mammography [facility] Start: 03-10-2020 Screening for malign ant neoplasm of breast Mammogram Screening [facility] Start: 12-05-2019 Colonoscopy COLONOSCOPY [facility] Start: 12-05-2019 COLORECTAL CANCER SCREENING COLORECTAL CANCER SCREENING [facility] Start: 07-15-2019 Adult depression screening assessment DEPRESSION SCREENING [facility] Start: 08-29-2012 SHINGRIX VACCINE (2 of 3) GUTIERRES GRIX VACCINE (2 of 3) [facility] Start: 2009 Hepatitis B Vaccine (1 of 3 - Risk 3-dose series) Hepatitis B Vaccine (1 of 3 - Risk 3-dose series) [facility] Start: 2009 RSV Vaccine (1 - 1-d ose 60+ series) RSV Vaccine (1 - 1-dose 60+ series) [facility] Start: 1994 COLOGUARD (FIT-DNA) COLOGUARD (FIT-D NA) [facility] Start: [address] COLONOGRAPHY [facility] Start: 1994 FECAL OCCULT BLOOD FECAL OCCULT BLOO D [facility] Start: 1994 Screening for malign ant neoplasm of colon [facility] Start: 1994 SIGMOIDOSCOPY SIGMOIDOSCOPY [facility] Start: 08-15-1979 Zoledronic acid therapy ALPHA- 1 ANTITRYPSIN DEFICIENCY SCREENING [facility] Start: 1968 Urine microalbumin profile [facility] Start: 08-15-1967 Anxiety Screening Anxiety Screening [facility] Start: 08-15-1967 BP CONTROLLED (<130/80) BP CONTROLLE D (<130/80) [facility] Start: 08-15-1967 Depression Screening Depression Scre ening [facility] Start: 08-15-1959 3 comp foot exam completed DIABETIC FOOT EXAM [facility] Start: 08-15-1959 Hepatitis B screening URINE AL BUMIN:CREATININE RATIO [facility] Start: 08-15-1959 Hepatitis C antibody , confirmatory test DILATED RETINAL EXAM [facility] Start: 08-15-1955 PNEUMOCOCCAL: 65+ (1 - PCV) PNEUMOCOCCAL: 65+ (1 - PCV) [facility] CT Chest for screeni ng WO contrast CT LUNG SCREEN WO IVCON Radiology Routine Personal history of tobacco use, presenting hazards to health 07/23/2023 12:56 PM EDT [facility] Work Phone: End: 03-03-2025 CT Chest for screening WO contrast CT LUNG SCREEN WO IVCON Radiology Routine Encounter for screening for lung cancer Former tobacco use 1 Occurrences starting 02/02/2024 until 03/03/2025 [facility] Work Phone: Comment on above: 1 Occurrences starti ng 02/02/2024 until 03/03/2025 End: 08-30-2024 CT Lung parenchyma WO contrast CT LUNG FOLLOWUP WO IVCON Radiology Routine Lung nodules 1 Occurrences starting 08/01/2023 until 08/30/2024 [facility] Work Phone: Comment on above: 1 Occurrences starti ng 08/01/2023 until 08/30/2024 CT Lung parenchyma W O contrast CT LUNG FOLLOWUP WO IVCON Radiology Routine Lung nodules 02/02/2024 1:58 PM EST [facility] Work Phone: End: 01-13-2023 Ct thorax w/o contrast material CT LUNG FOLLOWUP WO IVCON Radiology Routine Lung nodules 1 Occurrences starting 12/14/2021 until 01/13/2023 [facility] Work Phone: Comment on above: 1 Occurrences starti ng 12/14/2021 until 01/13/2023 End: 12-20-2021 Ct thorax w/o contrast material [facility] Work Phone: Comment on above: 1 Occurrences starti ng 12/20/2021 until 12/20/2021 End: 02-19-2025 DBT Breast - bilateral screening KATINA SCREENING W RODDY Radiology Routine Encounter for screening mammogram for breast cancer 1 Occurrences starting 01/21/2024 until 02/19/2025 [facility] Work Phone: Comment on above: 1 Occurrences starti ng 01/21/2024 until 02/19/2025 End: 12-29-2022 Dxa bone density study 1/> sites axial skel DXA-AXIAL SKELETON Radiology Routine Asymptomatic postmenopausal status 1 Occurrences starting 11/29/2021 until 12/29/2022 [facility] Work Phone: Comment on above: 1 Occurrences starti ng 11/29/2021 until 12/29/2022 Hemoglobin A1c in Blood HGB A1C Lab Routine Type 2 diabetes mellitus without complication, without long-term current use of insulin (HCC) 11/29/2021 1:25 PM EDT [facility] Work Phone: End: 03-22-2023 KATINA SCREENING KATINA SCREENING Radiology Routine Encounter for screening mammogram for breast cancer 1 Occurrences starting 02/20/2022 until 03/22/2023 [facility] Work Phone: Comment on above: 1 Occurrences starti ng 02/20/2022 until 03/22/2023 End: 02-21-2024 KATINA SCREENING KATINA SCREENING Radiology Routine Encounter for screening mammogram for breast cancer 1 Occurrences starting 01/22/2023 until 02/21/2024 [facility] Work Phone: Comment on above: 1 Occurrences starti ng 01/22/2023 until 02/21/2024 Natriuretic peptide. B prohormone N-Terminal [Mass/volume] in Serum or Plasma [facility] Patient Education AFib Preventin g Stroke AFib [facility] Work Phone: Patient referral [facility] Work Phone: End: 04-10-2022 Screening colonoscopy COLONOSCOPY SCREENING Endoscopy Routine Screening for colon cancer Personal history of colonic polyps 1 Occurrences starting 04/10/2021 until 04/10/2022 [facility] Work Phone: Comment on above: 1 Occurrences starti ng 04/10/2021 until 04/10/2022 SURGICAL PATHOLOGY [facility] Work Phone: Comment on above: Release Upon Orderin g for 1 Occurrences starting 08/27/2021, 1 completed Troponin T.cardiac [Mass/volume] in Serum or Plasma by High sensitivity method [facility] End: 06-27-2025 US Abdomen RUQ US ABD RIGHT UPPER QUADRANT Radiology Routine Fatty liver 1 Occurrences starting 05/28/2024 until 06/27/2025 [facility] Comment on above: 1 Occurrences starti ng 05/28/2024 until 06/27/2025 End: 09-28-2024 US Carotid arteries - bilateral US CAROTID ARTERIES [facility] V[facility] Lab Routine Carotid stenosis, asymptomatic, bilateral Left subclavian artery occlusion 1 Occurrences starting 09/29/2023 until 09/28/2024 [facility] Work Phone: Comment on above: 1 Occurrences starti ng 09/29/2023 until 09/28/2024 End: 11-03-2024 US Carotid arteries - bilateral US CAROTID ARTERIES [facility] V[facility] Lab Routine Carotid stenosis, asymptomatic, bilateral 1 Occurrences starting 11/04/2023 until 11/03/2024 [facility] Work Phone: Comment on above: 1 Occurrences starti ng 11/04/2023 until 11/03/2024 End: 08-03-2025 US Carotid arteries - bilateral US CAROTID ARTERIES [facility] Lab Routine Left subclavian artery occlusion Carotid stenosis, asymptomatic, bilateral 1 Occurrences starting 08/03/2024 until 08/03/2025 [facility] Work Phone: Comment on above: 1 Occurrences starti ng 08/03/2024 until 08/03/2025 End: 09-28-2024 US Lower extremity artery - bilateral PVR LEG [facility] V[facility] Lab Routine PVD (peripheral vascular disease) ([facility]) 1 Occurrences starting 09/29/2023 until 09/28/2024 [facility] Comment on above: 1 Occurrences starti ng 09/29/2023 until 09/28/2024 End: 08-07-2024 US Upper extremity artery - bilateral US ARM ARTERIAL [facility] Lab Routine Blood pressure alteration Type 2 diabetes mellitus with hyperglycemia, without long-term current use of insulin ([facility]) 1 Occurrences starting 08/08/2023 until 08/07/2024 [facility] Work Phone: Comment on above: 1 Occurrences starti ng 08/08/2023 until 08/07/2024 End: 11-03-2024 US.doppler Extremity arteries - bilateral for physiologic artery study PVR ANK PRESS [facility] V[facility] Lab Routine PVD (peripheral vascular disease) (HCC) 1 Occurrences starting 11/04/2023 until 11/03/2024 [facility] Comment on above: 1 Occurrences starti ng 11/04/2023 until 11/03/2024 [facility] Immunizations Immunization Date Immunization Notes Care Provider Branden ybarra 01-02-2024 influenza, high dose seasonal, preservative-free Lorenza Hadodie FAMILY PARTNER.MANAGER LEASING Work Phone: [facility] 01-02-2024 influenza virus vacc ine, unspecified formulation Vivienne Izquierdo MA [facility] 06-15-2023 zoster vaccine recombinant Rober Rubio MD Work Phone: [facility] 03-14-2023 zoster vaccine recombinant Rober Rubio MD Work Phone: [facility] 02-21-2023 respiratory syncytia l virus (RSV) vaccine, adjuvanted (AREXVY) Rober Rubio MD Work Phone: [facility] 11-27-2022 COVID-19 vaccine, ag e 12+ yr, 2022- season (MODERNA) Rober Rubio MD Work Phone: [facility] 11-27-2022 influenza (aIIV4) vaccine, age 65+ yr, quadrivalent, PF (FLUAD QUAD) Rober Rubio MD Work Phone: [facility] 11-27-2022 influenza (HD-IIV4) vaccine, age 65+ yr, high dose, quadrivalent, PF (FLUZONE HIGH-DOSE) Rober Rubio MD Work Phone: [facility] 11-27-2022 influenza, injectabl e, quadrivalent, preservative free [facility] 11-27-2022 influenza virus vacc ine, unspecified formulation Rober Rubio MD Work Phone: [facility] 02-01-2022 Covid Moderna Bivale nt Booster Rober Rubio MD Work Phone: [facility] 02-01-2022 COVID-19 booster vaccine, age 12+ yr, bivalent (PFIZER-BIONTECH) Rober Rubio MD Work Phone: [facility] 01-01-2022 Influenza High-Dose Quadrivalent Rober Rubio MD Work Phone: [facility] 01-01-2022 influenza, high dose seasonal, preservative-free Sandra Taylor APRN.[facility] Work Phone: [facility] 03-02-2021 COVID-19 vaccine, ag e 12+ yr (PFIZER-BIONTECH - PURPLE TOP) Rober Rubio MD Work Phone: [facility] 01-02-2021 influenza, high dose seasonal, preservative-free Rober Rubio MD Work Phone: [facility] 01-02-2021 influenza, high-dose , quadrivalent vaccine (FLUZONE HIGH DOSE QUADRIVALENT) Rm Lo MD Work Phone: [facility] 05-18-2020 COVID-19 vaccine, ag e 12+ yr (PFIZER-BIONTECH - PURPLE TOP) Rober Rubio MD Work Phone: [facility] 04-27-2020 COVID-19 vaccine, ag e 12+ yr (PFIZER-BIONTECH - PURPLE TOP) Rober Rubio MD Work Phone: [facility] Work Phone: 12-14-2019 influenza, high-dose , quadrivalent vaccine (FLUZONE HIGH DOSE QUADRIVALENT) Rober Rubio MD Work Phone: [facility] Work Phone: 12-09-2018 Influenza, high dose seasonal Dr. Rober Rubio MD Work Phone: [facility] 12-09-2018 influenza, high dose seasonal, preservative-free Rober Rubio MD Work Phone: [facility] 02-19-2018 pneumococcal polysaccharide vaccine, 23 valent Rober Rubio MD Work Phone: [facility] 11-19-2017 Influenza, high dose seasonal Dr. Rober Rubio MD Work Phone: [facility] 11-19-2017 influenza, high dose seasonal, preservative-free Rober Rubio MD Work Phone: [facility] 11-13-2017 Influenza, high dose seasonal Dr. Rober Rubio MD Work Phone: [facility] 11-13-2017 influenza, high dose seasonal, preservative-free [facility] 12-09-2015 Influenza, high dose seasonal Dr. Rober Rubio MD Work Phone: [facility] 12-09-2015 influenza, high dose seasonal, preservative-free Rm Lo MD Work Phone: [facility] 09-12-2015 pneumococcal conjuga te vaccine, 13 valent Rober Rubio MD Work Phone: [facility] 12-08-2014 Influenza, high dose seasonal Dr. Rober Rubio MD Work Phone: [facility] 12-08-2014 influenza, high dose seasonal, preservative-free Rober Rubio MD Work Phone: [facility] 12-10-2013 influenza nasal, unspecified formulation Rm Lo MD Work Phone: [facility] 12-10-2013 influenza, injectabl e, quadrivalent, preservative free [facility] 12-10-2013 influenza, seasonal, injectable Rober Rubio MD Work Phone: [facility] 11-17-2012 influenza virus vacc ine, unspecified formulation Rober Rubio MD Work Phone: [facility] 07-04-2012 zoster vaccine, live Rober Rubio MD Work Phone: [facility] 12-18-2009 pneumococcal polysaccharide vaccine, 23 valent Rober Rubio MD Work Phone: [facility] 12-18-2009 pneumococcal vaccine , unspecified formulation Rm Lo MD Work Phone: [facility] 04-22-2008 influenza virus vacc ine, whole virus Rm Lo MD Work Phone: [facility] 04-22-2008 influenza, injectabl e, quadrivalent, preservative free [facility] Payers Date Payer Category Payer Self-pay 2021 Private Health Insurance [id number] 2021 Unknown [id number] 2015 Private Health Insurance [id number] 2014 Medicare MEDICARE MEDICAR E A AND B [id number] 2014-Present [phone] [place] [address] Medicare [id number] 2014 Medicare [id number] 2014 Medicare [id number] 2011 Unknown [id number] Unknown [id number] Unknown [id number] Unknown [id number] Unknown [id number] Unknown [id number] Unknown [id number] Unknown [id number] Unknown [id number] Unknown [id number] Social History Date Type Detail Facility Start: 12-26-2011 End: 09-20-2024 Tobacco smoking status NHIS Ex-smoker [facility] Work Phone: Start: 02-17-1970 End: 12-27-2010 History of tobacco use Current smoker [facility] Work Phone: Start: 02-17-1970 End: 12-27-2010 History of tobacco use Cigarette Smoker [facility] Work Phone: Start: 12-26-2011 End: 02-24-2023 Cigarettes smoked current (pack per day) - Reported 0.75 [facility] Start: 12-26-2011 End: 10-28-2023 Tobacco use and exposure Smokeless tobacco non-user [facility] Work Phone: Start: 04-10-2021 End: 09-01-2024 Alcohol intake Current drinker of alcohol (finding) [facility] Start: 03-15-2021 History SDOH Alcohol Frequency 5 [facility] Start: 03-15-2021 History SDOH Alcohol Std Drinks 98 [facility] Start: 03-15-2021 History SDOH Alcohol Binge 1 [facility] Start: 03-15-2021 History SDOH Social Connections Phone 4 [facility] Start: 03-15-2021 History SDOH Social Connections Scientologist 3 [facility] Start: 03-15-2021 History SDOH Physica l Activity DPW 0 [facility] Start: 03-15-2021 History SDOH Housing Homeless Last Year 2 [facility] Start: 1950 Sex Assigned At Not on file [facility] Start: 12-21-2019 End: 01-15-2022 Exposure to SARS-CoV-2 (event) Not sure [facility] Start: 11-29-2021 Alcohol Comment 2 galsses of w ine 1-2 times per week [facility] Start: 03-15-2021 End: 02-24-2023 Social connection and isolation panel [facility] How often do you get together with friends or relatives? Patient refused [facility] Do you belong to any clubs or organizations such as baptism groups, unions, fraternal or athletic groups, or school groups? Yes [facility] Are you now , , , , never or living with a partner? [facility] How often to you hav e a drink containing alcohol? 4 or more times a week [facility] How often do you hav e 6 or more drinks on 1 occasion? Never [facility] Do you feel stress - tense, restless, nervous, or anxious, or unable to sleep at night because your mind is troubled all the time - these days [OSQ] Not at all [facility] (I/We) worried wheth er (my/our) food would run out before (I/we) got money to buy more. Never true [facility] At any time in the p ast 12 months, were you homeless or living in group home [including now]? No [facility] Start: 01-31-2023 End: 01-31-2023 Tobacco smoking status NHIS Unknown if ever smoked [facility] Start: 1950 Sex Assigned At Female W [facility] Medical Equipment Procedure Code Equipment Code Equipment Original Text Equipment Identifier Dates [id number], [id number] Start: 01-16-2021 Comment on above: Test blood sugar(s) 1 times daily. Dx: Type 2 DM - Controlled E11.9 Insulin: Yes Test blood sugar(s) 1 times daily. Dx: Type 2 DM - Controlled E11.9 Insulin: No Goals Date Patient Goal Desired Activity /State Personal health goal Functional Status Date Assessment Result Facility 02-05-2023 Functional status Ambulates;Jaren r;Bathroom Privilege [facility] Work Phone: 07-21-2014 Are you deaf, or do you have serious difficulty hearing No 07/21/2014 1:03 PM Stacey Lopes LPN No [facility] 07-21-2014 Are you blind, or do you have serious difficulty seeing, even when wearing glasses No 07/21/2014 1:03 PM Stacey Lopes LPN No [facility] 07-21-2014 Do you have serious difficulty walking or climbing stairs No 07/21/2014 1:03 PM Stacey Lopes LPN No [facility] 07-21-2014 Do you have difficul ty dressing or bathing No 07/21/2014 1:03 PM EDT Stacey Cartwright LPN No [facility] 07-21-2014 Because of a physica l, mental, or emotional condition, do you have difficulty doing errands alone such as visiting a physician's office or shopping No 07/21/2014 1:03 PM EDT Stacey Cartwright LPN No [facility] Mental Status Date Assessment Result Facility 02-05-2023 Cognitive function Voice/Name [facility] Work Phone: 07-21-2014 Because of a physica l, mental, or emotional condition, do you have serious difficulty concentrating, remembering, or making decisions No 07/21/2014 1:03 PM EDT Stacey Cartwright LPN No [facility] Clinical Notes 12-09-2014 to 09-20-2024 Note Date & Type Note Facility 09-20-2024 Discharge summary [facility] 09-20-2024 Radiology Diagnostic study note [facility] Imaging Services [address] [place] [address] Chest 1 View (Portable) MR#: [id number] Acct: [id number] Name: EMILY LOPEZ Rep #: [id number] : 1950 F 74 From: Jayjay Baugh MD PCP: Dr. Rober Rubio MD Status: PRE E R Study:Chest 1 View (Portable) Date of Exam: 09/20/24 Exam# [id number] Ordering Dr: [place] ,Ed P. PROCEDURE: CHEST [...] angles consistent with pleural effusions. Reading Location: [facility] CC: Dr. Rober Rubio MD; ED PHYSICIAN PROVIDER ~ Architect Intern: Signed [facility] 09-20-2024 Discharge summary Note Date/Time September 20, 2024 4:46pm [facility] Medical Records Department [address] [place] [address] Emergency Department Summary 09/20/24 MR#: [id number] Acct: [id number] Name: MEILY LOPEZ Rep #:[id number] : 1950 74 From: Joshua Castañeda [...] ill contacts. She was out of birthday constitution party. She has no history of PE [...] Prior similar symptoms: No Recent Illness/Hospitalization: No [facility] Medical History Legally blind COPD (chronic [...] PO DAILY 03/08/20 Unkn own History vitamins A,C,I-fkqr-kjmukw 2,148 1 ea PO DAILY 1 Unknown [...] intact bilaterally and no sensory deficits noted [place] Coma Scale: document GCS findings Spontaneous Obeys [...] 87.1 H Lymph % (Auto) 3.5 L [place] % (Auto) 8.2 Eos % (Auto) 0.2 [...] angles consistent with pleural effusions. Reading Location: [facility] Differential Diagnosis Chest pain/SOB: pulmonary embolism Reason(s) [...] anemia with blood transfusion), Discussing w/Patient &/or Family/Director Of Women'S Services (Patient and son were informed of results. [...] MG tablet 40 mg PO DAILY vitamins A,C,F-cril-myiual 1 EACH tablet 1 ea PO DAILY [...] MD [Primary Care Provider] - Print Language: Mongolian What to do if you have Problems For any increased pain, shortness of breath, bleeding, nausea or vomiting, chestpain, or any unexpected problems, contact your Primary Care Provider. Call [facility] ([phone]) or report to the closest Emergency Room. Call 911 if necessary. 09/20/24 164 <Electronically signed by Joshua Castañeda MD> Cosigner Signature (if applicable): CC: Dr. Rober Rubio MD ~ Signed ADDENDUM by Dr. Joshua Castañeda MD on 09/20/24 at 1646 EKG reveals a sinus tachycardia rate of 109. Initially read by Dr. Grissom. IL interval is 176 ms. QS duration 68 ms. QT duration 116 ms. [place] is normal. Computer is reading nonspecific changes. There are nonspecific changes. She does have low voltage as well. 09/20/241645<Electronically signed by Joshua Castañeda MD> Cosigner Signature (if applicable): cc: Dr. Rober Rubio MD ~* Signed [facility] Work Phone: [phone]) 461-949707-16-2025 Instructions* Patient Instructions* Lorenza Vo APRN.MANAGER LEASING - 09/01/2024 2:24 PM EDT Follow up in a month Labs Restarted on maunjaro and metoprolol [facility] NoteHNO ID: [id number] Author: LORENZA VO APRN.[facility] Service: ? Author [...] (Patient not taking: Reported on 10/03/2023) vit A,C,G-Hjzy-Awqjkf (PRESERVISION AREDS) 7,160-113-100 uwxf-ad-hgbz tab Take 2 tablets by mouth. aspirin, [...] for hemoptysis, positive for (more content not included)...[facility]07-16-2025 History of Present illness Narrative* Lorenza Vo APRN.[facility] - 09/01/2024 1:14 PM EDT This [...] (Patient not taking: Reported on 10/03/2023) vit A,C,M-Cgwf-Aaqkkc (PRESERVISION AREDS) 7,160-113-100 wjmq-zl-ybqy tab Take 2 tablets by mouth. aspirin, [...] plan. Lorenza Vo APRN.CNP documented [facility]25 NoteHNO ID: [id number] Author: VIVIENNE IZQUIERDO MA Service: ? Author Type: Prep Manager Type: Progress Notes Filed: 08/25/2024 15:58 Note [...] Vivienne Izquierdo MA August 25, 2024 3:42 [facility]07-09-2025 History of Present illness Narrative* Vivienne Izquierdo [...] 25, 2024 3:42 PM [facility] NotePatient Outreach (NETNAV) EMILY LOPEZ ([id number]) 1950 F Date Time Provider Department 08/25/24 [...] - Controlled E11.9 Insulin: Yes - vit A,C,U-Txnh-Mkxqyu (PRESERVISION AREDS) 7,160-113-100 atih-um-eroy tab Take 2 tablets by mouth. - [...] 10/03/2023 Encounter Status:Closed by VIVIENNE IZQUIERDO on 08/25/24[facility]06-17-2025 NoteHNO ID: [id number] Author: EMILY ADAMS, DO Service: ? Author Type: Physician Type: Progress Notes Filed: 08/03/2024 10:28 Note Text: [facility] [place] DEPARTMENT OF VASCULAR SURGERY OUTPATIENT VISIT DATE [...] 1 tablet by mouth once daily. vit A,C,P-Uymu-Ejugki (PRESERVISION AREDS) 7,160-113-100 pjwv-uz-tboq tab Take 2 tablets by mouth. aspirin, [...] visualized without evidence of (more content not included)...[facility]06-17-2025 History of Present illness Narrative* Emily Adams, - 08/03/2024 9:51 AM EDT Images from the original note were not included. [facility] [place] DEPARTMENT OF VASCULAR SURGERY OUTPATIENT VISIT DATE [...] 1 tablet by mouth once daily. vit A,C,V-Kdeh-Voocjt (PRESERVISION AREDS) 7,160-113-100 yswa-hp-jpdl tab Take 2 tablets by mouth. aspirin, [...] BP Cuff Size: Regular Adult) Pulse 86 [id number]% General: Alert and oriented Integumentary: Normal color, [...] 2024 TIME: 9:51 AM documented in [facility]25 NoteHNO ID: [id number] Author: BECKY FARIAS MA Service: ? Author Type: Prep Manager Type: Progress Notes Filed: 06/28/2024 11:39 Note Text: POPULATION HEALTH NAVIGATION OUTREACH Action/FYI Called and left a message to call [phone], to discuss health maintenance items that are [...] Becky Farias MA June 28, 2024 11:37 [facility]05-12-2025 History of Present illness Narrative* Becky Farias MA - 06/28/2024 11:35 AM EDT POPULATION HEALTH NAVIGATION OUTREACH Action/FYI Called and left a message to call [phone], to discuss health maintenance items that are [...] or unnecessary to reach patient: Left message ZoomTilt message sent HCC related Updated appointment notes Navigation Signature: Becky Farias MA June 28, 2024 11:37 AM documented in this encounterCl[facility] NotePatient Outreach (NETNAV) EMILY LOPEZ ([id number]) 1950 F Date Time Provider Department 06/28/24 BECKY FARIAS During your visit today, we recorded the following information about you: Becky Farias MA 06/28/2024 11:39 AM Signed POPULATION HEALTH NAVIGATION OUTREACH Action/FYI Called and left a message to call [phone], to discuss health maintenance items that are [...] or unnecessary to reach patient: Left message UUCUNhart message sent HCC related Updated appointment notes [...] by mouth one time a week. - yxoeqtlbmxe-pwyhmjuom-lqmvyuqw (TRELEGY ELLIPTA) 100-62.5-25 mcg inhalation powder Inhale [...] - Controlled E11.9 Insulin: Yes - vit A,C,B-Xzdq-Rqdidg (PRESERVISION AREDS) 7,160-113-100 jpaq-te-psrm tab Take 2 tablets by mouth. - [...] 10/03/2023 Encounter Status:Closed by BECKY FARIAS on 06/28/24[facility] 05-28-2024 Telephone encounter Note* Telephone Encounter - Rod Reich RN - 05/28/2024 4:24 PM EDT Patient calls and notified of results and providers instructions. Patient verbalizes understanding. Patient to have son call back to schedule when he is able to transport. Rod Reich RN [facility]04-11-2025 Miscellaneous Notes* Telephone Encounter - Rod [...] labs in one month documented in this encounterClermont [facility] Hospital04-11-2025 Telephone encounter Note * Telephone Encounter - Ana Rosa Saenz MA - 05/28/2024 2:48 PM EDT Message left for return call. Ana Rosa Saenz MA [facility]04-11-2025 Telephone encounter Note* Telephone Encounter - Rober Rubio MD - 05/28/2024 2:22 PM EDT Labs are stable. Liver is mildly up still. Has known fatty liver. Recheck liver us and labs in one month [facility]04-09-2025 Instructions* Patient Instructions* Lorenza Vo APRN.CNP - 05/26/2024 1:26 PM EDT Continue current medication regimen Get lab work Follow up in 3 months or sooner as needed documented in this encounterClermont County Hospital04-09-2025 NoteHNO ID: [id number] Author: LORENZA VO APRN.MANAGER LEASING Service: ? Author Type: Nurse Practitioner Type: [...] capsule by mouth one time a week. uzuayvxmpco-labkdulcl-ebcnlhfs (TRELEGY ELLIPTA) 100-62.5-25 mcg inhalation powder Inhale [...] (Patient not taking: Reported on 10/03/2023) vit A,C,L-Vymp-Cprapo (PRESERVISION AREDS) 7,160-113-100 zykl-rr-mxbb tab Take 2 tablets by mouth. aspirin, [...] Extremities: No deformities, e (more content not included)...[facility]04-09-2025 History of Present illness Narrative* Lorenza Vo APRN.[facility] - 05/26/2024 1:09 PM EDT This [...] capsule by mouth one time a week. zymqyntacdu-mudbdsjwd-wgxgfzxo (TRELEGY ELLIPTA) 100-62.5-25 mcg inhalation powder Inhale [...] (Patient not taking: Reported on 10/03/2023) vit A,C,S-Mxyx-Dkblhu (PRESERVISION AREDS) 7,160-113-100 qwzx-vb-ydzl tab Take 2 tablets by mouth. aspirin, [...] complication, without long-term current use of insulin ([facility]) - ICD9: 250.00, ICD10: E11.9 - Control [...] and agrees with the plan. Lorenza Vo APRN.MANAGER LEASING documented in this encounterClermont County Hospital03-27-2025 NoteHNO ID: [id number] Author: ?, ?, ? Service: ? Author [...] education. Pt alert and oriented. Divine Diane [facility] Telephone encounter Note * Telephone Encounter - Gil Garnica LPN - 05/12/2024 4:01 PM EDT Phoned pt Nikita mcintyre, appt scheduled. Gil Garnica LPN [facility]03-26-2025 Miscellaneous Notes* Telephone Encounter - Gil Garnica LPN - 05/12/2024 4:01 PM EDT Phoned pt Nikita mcintyre, appt scheduled. Gil Garnica LPN documented in this encounterClermont County Hospital03-25-2025 NoteHNO ID: [id number] Author: VIVIENNE IZQUIERDO MA Service: ? Author Type: Prep Manager Type: Progress Notes Filed: 05/11/2024 16:46 Note Text: POPULATION HEALTH NAVIGATION OUTREACH Action/FYI Orders removed since provider did not sign within 7 days and encounter closed. Please have the office reach out to the patient to coordinate any further testing/appointment needs. Reason for Outreach Care Gap/HCC or Scheduling Wellness Visits Vivienne Izquierdo MA May 11, 2024 4:43 [facility]03-25-2025 History of Present illness Narrative* Vivienne Izquierdo [...] 28, 2024 9:48 AM documented in this encounterClermont County Hospital03-12-2025 Instructions* Patient Instructions* Lorenza Vo APRN.CNP - 04/28/2024 1:33 PM EDT Get the labwork. Decrease the lisinopril to 20 mg daily. Lets see if the mounjaro is covered. Let us know if you are able to pick it up and we can have you back in to work with you on administering it. Otherwise, recheck in a month. documented in this encounterClermont County Hospital03-12-2025 NoteHNO ID: [id number] Author: LORENZA VO APRN.[facility]KE Service: ? Author [...] capsule by mouth one time a week. etqwwmutmzs-utklsatkb-jemesxrn (TRELEGY ELLIPTA) 100-62.5-25 mcg inhalation powder Inhale [...] (Patient not taking: Reported on 10/03/2023) vit A,C,B-Yngx-Bgcmqu (PRESERVISION AREDS) 7,160-113-100 ocgr-mh-hlbu tab Take 2 tablets by mouth. aspirin, [...] kg/m? PHYSICAL EXAM: Gen (more content not included)...[facility]03-12-2025 History of Present illness Narrative* Lorenza Vo APRN.MANAGER LEASING - 04/28/2024 12:58 PM EDT This is [...] capsule by mouth one time a week. jampzrxkrfn-ifbzrxnyy-rujoyjhq (TRELEGY ELLIPTA) 100-62.5-25 mcg inhalation powder Inhale [...] (Patient not taking: Reported on 10/03/2023) vit A,C,A-Smze-Xcnajv (PRESERVISION AREDS) 7,160-113-100 jgqn-gx-ghfl tab Take 2 tablets by mouth. aspirin, [...] MG TABLET 2. Atrial fibrillation with RVR ([facility]) - ICD9: 427.31, ICD10: I48.91 Stable on current regimen. 3. PVD (peripheral vascular disease) ([facility]) - ICD9: 443.9, ICD10: I73.9 Continue per vascular. 4. Type 2 diabetes mellitus with hyperglycemia, without long-term current use of insulin ([facility]) - ICD9: 250.00, 790.29, ICD10: E11.65 - [...] improvement. Lorenza Vo APRN.CNP documented in this encounterClermont County Hospital03-12-2025 NoteHNO ID: [id number] Author: VIVIENNE IZQUIERDO MA Service: ? Author Type: Prep Manager Type: Progress Notes Filed: 05/11/2024 16:46 Note [...] Vivienne Izquierdo MA April 28, 2024 9:48 [facility]03-12-2025 NotePatient Outreach (NETNAV) EMILY LOPEZ ([id number]) 1950 F Date Time Provider Department 04/28/24 [...] by mouth one time a week. - vobsghqqamo-fpibmzano-zcjkdnoo (TRELEGY ELLIPTA) 100-62.5-25 mcg inhalation powder Inhale [...] - Controlled E11.9 Insulin: Yes - vit A,C,R-Qdlw-Anowmh (PRESERVISION AREDS) 7,160-113-100 xdih-io-zpyi tab Take 2 tablets by mouth. - [...] 10/03/2023 Encounter Status:Closed by VIVIENNE IZQUIERDO on 05/11/24[facility]12-26-2024 History of Present illness Narrative* Hoda Cyr MD - 02/12/2024 2:45 PM EST Images from the original note were not included. . [facility] [place] Note Patient name: Emily Lopez PCP: Rober [...] DATE OF EXAM: Feb 02 2024 1:58PM [facility] 0561 - CT LUNG FOLLOWUP WO IVCON [...] as instructed every 4 hours as needed. uyqrzkkzqyk-sbslogaja-ofljikjn (TRELEGY ELLIPTA) 100-62.5-25 mcg inhalation powder Inhale 1 Puff asinstructed once daily. atorvastatin (LIPITOR) 80 mg tablet Take 1 tablet by mouth once daily. metoprolol succinate ER (TOPROL XL) 25 mg 24 hr tablet Take 1 tablet by mouth once daily. vit A,C,I-Fcdd-Gapcdq (PRESERVISION AREDS) 7,160-113-100 lgxx-ut-umcf tab Take 2 tablets by mouth. aspirin, [...] obtain OTC Mucinex Hoda Cyr MD [facility] [place] documented in this encounterClermont County Hospital12-26-2024 NoteHNO ID: [id number] Author: HODA CYR MD Service: ? Author Type: Physician Type: Progress Notes Filed: 02/12/2024 17:23 Note Text: . [facility] [place] Note Patient name: Emily Lopez PCP: Rober [...] DATE OF EXAM: Feb 02 2024 1:58PM [facility] 0561 - CT LUNG FOLLOWUP WO IVCON [...] as instructed every 4 hours as needed. rkopoaeseec-sfdkremxv-yzlarntr (TRELEGY ELLIPTA) 100-62.5-25 mcg inhalation powder Inhale 1 Puff as instructed once daily. atorvastatin (LIPITOR) 80 mg tablet Take 1 tablet by mouth once daily. metoprolol succinate ER (TOPROL XL) 25 mg 24 hr tablet Take 1 tablet by mouth once daily. vit A,C,H-Fpxb-Ttgxyl (PRESERVISION AREDS) 7,160-113-100 qahd-vf-nxqq tab Take 2 tablets by mouth. aspirin, [...] APPENDECTOMY CHOLECYSTECTOMY COLONOSCOPY 08/27/2021 (more content not included)...[facility]12-23-2024 Telephone encounter Note* Telephone Encounter - Stacey [...] Cartwright LPN February 09, 2024 9:26 AM [facility]12-23-2024 Miscellaneous Notes* Telephone Encounter - Stacey [...] 09, 2024 9:26 AM documented in this encounterClermont County Hospital12-16-2024 Instructions* Patient Instructions* Martin Benites APRN.CNP [...] final radiology report recommendations when available by [email or web address] message, letter, or phone call. We will also notify your referring provider/PCP of the results and recommendations. If you didn t schedule this before you left the office or need to reschedule, you can call in to schedule it anytime: [place] [facility] [place] [phone] [facility] [phone] All other [facility] locations [phone] Feel free to reach out for any questions or concerns, Martin Benites APRN.CNP Lung Cancer Screening [phone] documented in this encounterClermont County Hospital12-16-2024 NoteHNO ID: [id number] Author: MARTIN BENITES APRN.CNP Service: ? Author [...] activities of daily living. Modified Medical Research [place] Dyspnea Scale (MMRC) I only get breathless [...] PFTS: SPIROMETRY - BASELINE AND POST DILATOR ([id number]) - ordered on 03/08/[address], [place] [address] Test Date: 2020-03-08 Pat Name: EMILY LOPEZ Department: Room: Gender: Female Warp Scouring Vat Tender: STEPHY Scales : 1950 Requested By: Rober RUBIO Order Number: [id number] Reading MD: Hoda Cyr M.D. Interpretive Statements 2 Puffs of albuterol (180mcg) delivered by MDI via Aerochamber HRpre =101 /min, HRpost= 101/min. ATS/ERS acceptability and repeatability standards for spirometry met. IMPRESSION: Spirometry indicates moderate obstruction. There was not a significant bronchodilator response. Electronically Signed On 03-09-2020 16:26:46 EST by Hoda Cyr M.D. Site: WO ID: [id number] Name: EMILY LOPEZ Visit Date: 03/08/2020 Second ID: [id number] Referring Doctor: Rober MONTERO Warp Scouring Vat Tender: STEPHY Scales Age: 69 : 1950 Sex: Female Race: Height: 61.80 In (more content not included)...[facility] 02-02-2024 History of Present illness Narrative* Martin Benites APRN.MANAGER LEASING - 02/02/2024 2:18 PM EST Images from [...] activities of daily living. Modified Medical Research [place] Dyspnea Scale (MMRC) I only get breathless [...] PFTS: SPIROMETRY - BASELINE AND POST DILATOR ([id number]) - ordered on 03/08/20 [facility] [address] [facility] [place] [address] Test Date: 2020-03-08 Pat Name: EMILY LOPEZ Department: Room: Gender: Female Warp Scouring Vat Tender: STEPHY Scales : 1950 Requested By: Rober RUBIO Order Number: [id number] Reading MD: Hoda Cyr M.D. Interpretive Statements 2 Puffs of albuterol (180mcg) delivered by MDI via Aerochamber HRpre =101 /min, HRpost= 101/min. ATS/ERS acceptability and repeatability standards for spirometry met. IMPRESSION: Spirometry indicates moderate obstruction. There was not a significant bronchodilator response. Electronically Signed On 03-09-2020 16:26:46 EST by Hoda Cyr M.D. Site: WO ID: [id number] Name: EMILY LOPEZ Visit Date: 03/08/2020 Second ID: [id number] Referring Doctor: Rober MONTERO Warp Scouring Vat Tender: STEPHY Scales Age: 69 : 1950 Sex: Female Race: Height: 61.80 Inches Weight: 187.00 Lbs BSA: 1.85 Order IDs: [id number] Requested Test(s): Spirometry - baselline and post [...] which included preparing to see the patient, hqgl-gs-nzir patient care, completing clinical documentation, performing a medically appropriate examination, counseling and educating the patient/family/caregiver, ordering medications, tests, or p rocedures, communicating with other HCPs (not separately reported), independently interpreting results (not separately reported), communicating results to the patient/family/caregiver, and care coordination (not separately reported). documented in this encounterClermont County Hospital12-16-2024 History of Present illness Narrative* Reef [...] PATIENT PRESENTS WITH AN IMPLANTABLE OR ATTACHED TERMITE TECHNICIAN: No RADIOLOGY DEPARTMENT: CT; Exam(s) Completed: Lung Screening PERIPHERAL IV DATA: Not applicable SIGNED BY: RT Heidi(Viv) February 02, 2024 3:00 PM documented in this encounterClermont County Hospital12-16-2024 NoteHNO ID: [id number] Author: BECKY ESQUIVEL RT(Viv) Service: ? Author Type: Warp Scouring Vat Tender Type: Progress Notes Filed: 02/02/2024 15:00 Note [...] PATIENT PRESENTS WITH AN IMPLANTABLE OR ATTACHED TERMITE TECHNICIAN: No RADIOLOGY DEPARTMENT: CT; Exam(s) Completed: Lung Screening PERIPHERAL IV DATA: Not applicable SIGNED BY: RT Heidi(R) February 02, 2024 3:00 [facility]12-04-2024 NotePatient Outreach (INTMMN) JESSICAEMILY Jose F ([id number]) 1950 F Date Time Provider Department 01/21/24 [...] for screening mammogram for breast cancer [Z12.31] Order(s):[facility] SCREENING [facility]ODDY [[id number]] Order #: [id number] FUTURE Prescriptions as of 01/26/2024 - amLODIPine [...] instructed every 4 hours as needed. - nvziykkuxlm-hknisobpk-zqiwjefb (TRELEGY ELLIPTA) 100-62.5-25 mcg inhalation powder Inhale [...] - Controlled E11.9 Insulin: Yes - vit A,C,B-Dzrh-Zpexzr (PRESERVISION AREDS) 7,160-113-100 ejjx-ec-pdrr tab Take 2 tablets by mouth. - [...] apixaban therapy [Z79.01] 10/03/2023 Encounter Status:Closed by [employer]MARTIR on 01/26/24[facility] 12-23-2023 Telephone encounter Note* Telephone Encounter - [...] Reyes LPN December 23, 2023 11:39 AM [facility]11-05-2024 Miscellaneous Notes* Telephone Encounter - Shantell [...] 23, 2023 11:39 AM documented in this encounterClermont County Hospital09-17-2024 NoteHNO ID: [id number] Author: EMILY ADAMS, DO Service: ? Author Type: Physician Type: Progress Notes Filed: 12/02/2023 10:10 Note Text: [facility] [place] DEPARTMENT OF VASCULAR SURGERY OUTPATIENT VISIT DATE [...] as instructed every 4 hours as needed. utiyytyiaex-uihcibdnw-vmjnnmjp (TRELEGY ELLIPTA) 100-62.5-25 mcg inhalation powder Inhale 1 Puff as instructed once daily. atorvastatin (LIPITOR) 80 mg tablet Take 1 tablet by mouth once daily. metoprolol succinate ER (TOPROL XL) 25 mg 24 hr tablet Take 1 tablet by mouth once daily. vit A,C,R-Avnj-Rwszfu (PRESERVISION AREDS) 7,160-113-100 rzxb-gk-hibs tab Take 2 tablets by mouth. aspirin, [...] stenosis . PLAN a (more content not included)...[facility]09-17-2024 History of Present illness Narrative* Emily Adams, - 11/04/2023 9:44 AM EDT Images from the original note were not included. [facility] [place] DEPARTMENT OF VASCULAR SURGERY OUTPATIENT VISIT DATE [...] as instructed every 4 hours as needed. bsnuupqkwur-yhxmtwtah-ubjkvmtk (TRELEGY ELLIPTA) 100-62.5-25 mcg inhalation powder Inhale 1 Puff asinstructed once daily. atorvastatin (LIPITOR) 80 mg tablet Take 1 tablet by mouth once daily. metoprolol succinate ER (TOPROL XL) 25 mg 24 hr tablet Take 1 tablet by mouth once daily. vit A,C,B-Shzy-Gclgvn (PRESERVISION AREDS) 7,160-113-100 cyzv-ya-uwcz tab Take 2 tablets by mouth. aspirin, [...] BP Cuff Size: Regular Adult) Pulse 94 AeD060% General: Alert and oriented Integumentary: Normal color, [...] 2023 TIME: 9:45 AM documented in this encounterClermont County Hospital09-12-2024 Telephone encounter Note * Telephone Encounter [...] Nilo Lainez October 30, 2023 2:03 PM [facility]09-12-2024 Miscellaneous Notes* Telephone Encounter - Nilo [...] 30, 2023 2:03 PM documented in this encounterClermont County Hospital09-10-2024 Telephone encounter Note * Telephone Encounter - Gris Guzman RN - 10/28/2023 4:53 PM EDT Pts son called and is notified of providers message. He voices understanding. Gris Guzman RN [facility]09-10-2024 Miscellaneous Notes* Telephone Encounter - Gris [...] takes it once daily. documented in this encounterClermont County Hospital09-10-2024 Telephone encounter Note * Telephone Encounter - Lorenza Vo APRN.CNP - 10/28/2023 4:50 PM EDT Sounds good. I updated her medication list and sent a new script to the pharmacy. Can please let patient know. Lorenza Vo APRN.CNP [facility]09-10-2024 Telephone encounter Note* Telephone Encounter - Karlene Tarango LPN - 10/28/2023 4:42 PM EDT Patient calling said she had appt with Lorenza Vo today and was to call back with what dose herLisinopril is and patient said 30 mg and she takes it once daily. [facility]09-10-2024 Instructions* Patient Instructions* Lorenza Vo APRN.CNP - 10/28/2023 2:05 PM EDT Stay on current medication. Call us back and confirm the dose of the lisinopril. Recheck in 6 months. documented in this encounterClermont County Hospital09-10-2024 NoteHNO ID: [id number] Author: LORENZA VO APRN.CNP Service: ? Author [...] as instructed every 4 hours as needed. cfclrgllwfz-yrkkmryqg-nkltaepe (TRELEGY ELLIPTA) 100-62.5-25 mcg inhalation powder Inhale [...] (Patient not taking: Reported on 10/03/2023) vit A,C,O-Idmu-Murcjp (PRESERVISION AREDS) 7,160-113-100 nerr-yx-tall tab Take 2 tablets by mouth. aspirin, [...] results to next visit (more content not included)...[facility]09-10-[facility] History of Present illness Narrative* Lorenza Vo APRN.MANAGER LEASING - 10/28/2023 1:47 PM EDT This is [...] No date: COPD (chronic obstructive pulmonary disease) ([facility]) 01/15/2012: HTN (hypertension) No date: Hyperlipidemia No [...] as instructed every 4 hours as needed. ggidorgqddy-uwizrykni-hflpuasn (TRELEGY ELLIPTA) 100-62.5-25 mcg inhalation powder Inhale [...] (Patient not taking: Reported on 10/03/2023) vit A,C,A-Ntma-Ehvhdo (PRESERVISION AREDS) 7,160-113-100 tycl-ov-ypjy tab Take 2 tablets by mouth. aspirin, [...] improvement. Lorenza Vo APRN.DUKE documented in this encounterClermont County Hospital08-16-2024 NoteHNO ID: [id number] Author: BRITTON GANNON, DO Service: ? Author Type: Physician Type: Progress Notes Filed: 10/03/2023 16:58 Note Text: [facility] SECTION OF [facility] CARDIOLOGY [facility] OUTPATIENT VISIT DATE October 03, 2023 PRIMARY CARE PHYSICIAN: Rober Rubio [address] [place] [address] HISTORY OF PRESENT ILLNESS: Ms. Lopez is [...] COPD Father smoker Diabet (more content not included)...[facility]08-16-2024 History of Present illness Narrative* Britton Gannon, DO - 10/03/2023 3:05 PM EDT Images from the original note were not included. [facility] SECTION OF [facility] CARDIOLOGY [facility] OUTPATIENT VISIT DATE October 03, 2023 PRIMARY CARE PHYSICIAN: Rober Rubio [address] [place] [address] HISTORY OF PRESENT ILLNESS: Ms. Lopez is [...] as instructed every 4 hours as needed. uafscchrjid-mtysotyei-iqeuwmjt (TRELEGY ELLIPTA) 100-62.5-25 mcg inhalation powder Inhale 1 Puff asinstructed once daily. atorvastatin (LIPITOR) 80 mg tablet Take 1 tablet by mouth once daily. metoprolol succinate ER (TOPROL XL) 25 mg 24 hr tablet Take 1 tablet by mouth once daily. amLODIPine (NORVASC) 10 mg tablet Take 1 tablet by mouth once daily. vit A,C,Z-Datz-Izqrcr (PRESERVISION AREDS) 7,160-113-100 chvz-ne-qnya tab Take 2 tablets by mouth. aspirin, [...] taking: Reported on 10/03/2023) Britton Gannon DO, [facility], [facility] Copy Camera Operator, [facility] Copy Camera Operator, [facility] Copy Camera Operator, [facility] Copy Camera Operator, [facility] Copy Camera Operator, [facility] Clinical [place] Assembler Profressor of Medicine, [facility] Staff Cell Room Supervisor, Shannon Conway Department of Cardiovascular Medicine/[facility] [place], [facility] Please note: This note has been produced using speech recognition software and may contain errors related to that system including guerrero, punctuation, spelling, words, gender and phrases that may be inappropriate. documented in this encounterClermont County Hospital08-12-2024 NoteHNO ID: [id number] Author: EMILY ADAMS DO Service: ? Author Type: Physician Type: Progress Notes Filed: 09/29/2023 16:15 Note Text: [facility] [place] DEPARTMENT OF VASCULAR SURGERY OUTPATIENT VISIT DATE September 29, 2023 OUTPATIENT VISIT TYPE CONSULTATION SERVICE DATE: 09/29/2023 SERVICE TIME: 12:24 PM PRIMARY CARE PHYSICIAN: Rober Rubio MD REFERRING PROVIDER: Rober Rubio [address] [facility] [address] Consult requested for an opinion regarding the [...] as instructed every 4 hours as needed. svyosyxxbyy-rbrvwcecx-boazxhtm (TRELEGY ELLIPTA) 100-62.5-25 mcg inhalation powder Inhale [...] DM - Controlled E11.9 Insulin: Yes vit A,C,U-Bvtl-Ugejfb (PRESERVISION AREDS) 7,160-113-100 qezn-je-rnlt tab Take by mouth. aspirin, enteric coated [...] breath on exertion Cardiovascular (more content not included)...[facility] 09-29-2023 History of Present illness Narrative* Emily Adams DO - 09/29/2023 12:24 PM EDT Images from the original note were not included. [facility] [place] DEPARTMENT OF VASCULAR SURGERY OUTPATIENT VISIT DATE September 29, 2023 OUTPATIENT VISIT TYPE CONSULTATION SERVICE DATE: 09/29/2023 SERVICE TIME: 12:24 PM PRIMARY CARE PHYSICIAN: Rober Rubio MD REFERRING PROVIDER: Rober Rubio [address] [facility] [address] Consult requested for an opinion regarding the [...] as instructed every 4 hours as needed. xtrxsvfpibz-hrybmyvaf-oniuvqtv (TRELEGY ELLIPTA) 100-62.5-25 mcg inhalation powder Inhale [...] DM - Controlled E11.9 Insulin: Yes vit A,C,Z-Gglt-Fdbpyy (PRESERVISION AREDS) 7,160-113-100 uprz-cd-hsdl tab Take by mouth. aspirin, enteric coated [...] 2023 TIME: 12:24 PM documented in this encounterClermont County Hospital08-07-2024 Instructions* Patient Instructions* Lorenza Vo APRN.DUKE - 09/24/2023 1:56 PM EDT Decrease the lisinopril to 30 mg. Follow-up with vascular and cardiology, as planned. Recheck in 1 month. documented in this encounterClermont County Hospital08-07-2024 NoteHNO ID: [id number] Author: LORENZA VO APRN.DUKE Service: ? Author [...] as instructed every 4 hours as needed. rvytirmfhbb-sbmrcjyub-amfxhccg (TRELEGY ELLIPTA) 100-62.5-25 mcg inhalation powder Inhale [...] DM - Controlled E11.9 Insulin: Yes vit A,C,Y-Scyu-Sbnloy (PRESERVISION AREDS) 7,160-113-100 jpqf-be-ecer tab Take by mouth. aspirin, enteric coated [...] ICD9: 796.4, ICD1 (more content not included)... [facility] [facility] History of Present illness Narrative* Lorenza Vo APRN.MANAGER LEASING - 09/24/2023 1:31 PM EDT This is [...] as instructed every 4 hours as needed. rukjddaxqqj-ahhswqnes-ggpzqxff (TRELEGY ELLIPTA) 100-62.5-25 mcg inhalation powder Inhale [...] DM - Controlled E11.9 Insulin: Yes vit A,C,Z-Imhv-Swyvik (PRESERVISION AREDS) 7,160-113-100 siso-zh-ulhy tab Take by mouth. aspirin, enteric coated [...] improvement. Lorenza Vo APRN.[place] documented in [facility] encounterCl[facility]24 Telephone encounter Note * Telephone Encounter - Ana Rosa Saenz MA - 09/18/2023 11:15 AM EDT Patient informed and verbalized understanding. Ana Rosa Saenz MA [facility]08-01-[facility]24 Miscellaneous Notes* Telephone Encounter - Ana Rosa Saenz MA - 09/18/2023 11:15 AM EDT Patient informed and verbalized understanding. Ana Rosa Saenz MA * Telephone Encounter - Rober Rubio MD - 09/18/2023 10:38 AM EDT Arterial studies are showing some differences in blood flow comparing one arm to the other. Refer to vascular surgery. documented in this encounterClerm[facility]08-01-2024 Telephone encounter Note * Telephone Encounter - Rober Rubio MD - 09/18/2023 10:38 AM EDT Arterial studies are showing some differences in blood flow comparing one arm to the other. Refer to vascular surgery. [facility]06-21-[facility] Instructions* Patient Instructions* Lorenza Vo APRN.CNP - 08/08/2023 2:16 PM EDT Change the lisinopril to evening. Rybelsus sent to the pharmacy -- we'll see what insurance says. Schedule the ultrasound. Recheck in 1 month. 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 rqjaqehvnog-wbrrbvtwy-dxulkhaa (TRELEGY ELLIPTA) 100-62.5-25 mcg inhalation powder Inhale [...] DM - Controlled E11.9 Insulin: Yes vit A,C,J-Rbth-Qejptg (PRESERVISION AREDS) 7,160-113-100 obuf-xm-pxky tab Take by mouth. aspirin, enteric coated [...] will check to see insurance coverage of [facility], continue metformin until then. - METFORMIN [...] agrees with the plan. documented in this encounterClermont [facility] Hospital06-05-2024 Instructions* Patient Instructions* Martin Benites APRN.CNP [...] been sent in. Please schedule with the truck driving in [place] for follow up of COPD and emphysema. 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 She had PFT 01/2023 at [facility] per patient. Plan to refill medications and get follow up appt with Dr. Bell. 5. Acute bronchiolitis Treat with z pack. May take mucinex and use inhalers as needed. I spent a total of 30 minutes on the date of the service which included preparing to see the patient, fkgx-ft-sqpx patient care, completing clinical documentation, performing a medically appropriate examination, counseling and educating the patient/family/caregiver, ordering medications, tests, or p rocedures, communicating with other HCPs (not separately reported), independently interpreting results (not separately reported), communicating results to the patient/family/caregiver, and care coordination (not separately reported). Martin Benites APRN.[facility] July 23, 2023 1:30 PM History [...] with pulmonology. Pt was admitted 01/2023 at [facility] and had PFT there. Modified Medical Research [place] Dyspnea Scale (MMRC) I am too breathless [...] in 12 months. Other actionable findings: Reference: [employer]. Lung CT Screening Reporting and Data System (Lung-RADS). Available at: http://www.acr.org/Quality-Safety/Resources/LungRADS Architect Intern: ELLEN Transcribe Date/Time: Dec 21 2021 9:16A Dictated by : GABRIELA RICKETTS MD This examination was interpreted and the report reviewed and electronically signed by: GABRIELA RICKETTS MD on Dec 21 2021 9:33AM EST Results-Findings * * *Final Report* * * DATE OF EXAM: Dec 20 2021 2:01PM [facility] [place] - CT LUNG FOLLOWUP WO IVCON / PROCEDURE REASON: R91.8-Lung nodules * * * * Physician Interpretation * * * * EXAMINATION: CT LUNG FOLLOWUP WO IVCON CLINICAL HISTORY: Technique: Spiral CT acquisition of the chest from the thoracic inlet to the upper abdomen without contrast. MQ: CTLCS_6 Followup LDCT Patient characteristics: * Wthl-ap-Eipzl: 1950; Age at exam: 71 years * Gender: Female * Lung Disease: Asymptomatic (no signs or symptoms of lung disease) * Number of Pack Years: 30 * Current smoker (=0) or Number of Years since Quit: 10 * Ordering provider and NPI: BECKY KATZ [id number] * Interpreting radiologist and NPI: Dasha [id number] Exam acquisition parameters: * Exam Date: 12/20/2021 2:01 PM * Site: [facility] * * CT System Microfilming Document Preparer: SEWORKS * CT System Model: Dual Source * [...] lobe Coronary Artery Calcifications: Moderate, previously reported Social Work Therapist (topogram) images: No additional findings. Last CT Chest - Impression Only No resulted procedures found. Last XR Chest - Impression Only XR CHEST 2V FRONTAL/LAT Exam End: 02/24/2023 3:15 PM (Final result) Impression: IMPRESSION: No acute radiographic abnormality. ... Pulmonary Function Testing: SPIROMETRY - BASELINE AND POST DILATOR ([id number]) - ordered on 03/08/20 [facility] [address] [place] [address] Test Date: 2020-03-08 Pat Name: EMILY LOPEZ Department: Room: Gender: Female Warp Scouring Vat Tender: STEPHY Scales : 1950 Requested By: Rober RUBIO Order Number: [id number] Reading MD: Hoda Cyr M.D. Interpretive Statements 2 Puffs of albuterol (180mcg) delivered by MDI via Aerochamber HRpre =101 /min, HRpost= 101/min. ATS/ERS acceptability and repeatability standards for spirometry met. IMPRESSION: Spirometry indicates moderate obstruction. There was not a significant bronchodilator response. Electronically Signed On 03-09-2020 16:26:46 EST by Hoda Cyr M.D. Site: WO ID: [id number] Name: EMILY LOPEZ Visit Date: 03/08/2020 Second ID: [id number] Referring Doctor: Rober MONTERO Warp Scouring Vat Tender: STEPHY Scales Age: 69 : 1950 Sex: Female Race: Height: 61.80 Inches Weight: 187.00 Lbs BSA: 1.85 Order IDs: [id number] Requested Test(s): Spirometry - baselline and post [...] (sec) 0.079 0.064 -18 documented in this encounterClermont County Hospital06-05-2024 History of Present illness Narrative* Myra [...] PATIENT PRESENTS WITH AN IMPLANTABLE OR ATTACHED TERMITE TECHNICIAN: No RADIOLOGY DEPARTMENT: CT; Exam(s) Completed: Lung Screening PERIPHERAL IV DATA: Not applicable SIGNED BY: RT Sj(R) July 23, 2023 1:01 PM documented in this encounterClermont County Hospital06-05-2024 NoteHNO ID: [id number] Author: MYRA ARIZA RT(R) Service: Radiology Author [...] PATIENT PRESENTS WITH AN IMPLANTABLE OR ATTACHED TERMITE TECHNICIAN: No RADIOLOGY DEPARTMENT: CT; Exam(s) Completed: Lung Screening PERIPHERAL IV DATA: Not applicable SIGNED BY: RT Sj(R) July 23, 2023 1:01 PMAultman Alliance Community [id number] Telephone encounter Note* Telephone Encounter - Ana Rosa Saenz MA - 07/17/2023 11:42 AM EDT Patient informed to start 80 mg Lipitor. Verbalized understanding. Will recheck labs in 6 weeks. Has appt for 08/07/[address] Rubio. Please resend Rx to correct pharmacy. [facility] [place] [facility] [place]. Ana Rosa Saenz MA [facility]05-30-2024 Miscellaneous Notes* Telephone Encounter - Ana Rosa Saenz MA - 07/17/2023 11:42 AM EDT Patient informed to start 80 mg Lipitor. Verbalized understanding. Will recheck labs in 6 weeks. Has appt for 08/07/[address] Rubio. Please resend Rx to correct pharmacy. [facility] [place] [facility] Please send to [facility] in [place]. Ana Rosa Saenz MA * Telephone Encounter [...] missed any lipitor doses? documented in this encounterClermont County Hospital05-30-2024 Telephone encounter Note * Telephone Encounter - Rober Rubio MD - 07/17/2023 11:37 AM EDT Increase lipitor to 80 mg a day and recheck liver and lipid in six weeks. [facility]05-30-[facility] Telephone encounter Note* Telephone Encounter - Lorena Ramsey OCCA - 07/17/2023 11:32 AM EDT TC to patient who states she has not missed any doses of her Lipitor. ZEYAD Vaqzuez [facility]05-30-2024 Telephone encounter Note* Telephone Encounter - Rober Rubio MD - 07/17/2023 10:56 AM EDT Labs are overall ok. Cholesterol is up a little. Has she missed any lipitor doses? [facility] History of Present illness Narrative* Rober [...] summary in hospital, she was to see [place] [facility] a month after discharge. Has [...] rare (<1.0%). Isolated VEs were frequent (9.8%, [id number]), VE Couplets were rare (<1.0%, 502), and [...] pulmonary. MEDICATIONS: Current Outpatient Medications Medication Sig lzlrlfedned-qwfehlhku-zhisbdbp (TRELEGY ELLIPTA) 100-62.5-25 mcg inhalation powder Inhale [...] DM - Controlled E11.9 Insulin: Yes vit A,C,T-Phop-Hdbiuu (PRESERVISION AREDS) 7,160-113-100 ezke-co-iahl tab Take by mouth. aspirin, enteric coated [...] stable. Rober Rubio MD documented in this encounterClermont [facility] Hospital05-02-2024 Telephone encounter Note * Telephone Encounter - Pamela Kim - 06/19/2023 9:49 AM EDT Patient has been identified by name and date of : Yes Requested Prescriptions Pending Prescriptions Disp Refills lcppbksfejh-nxavvsvnw-liganltu (TRELEGY ELLIPTA) 100-62.5-25 mcg inhalation powder 60 Each 5 Sig: Inhale 1 Puff as instructed once daily. RX INSTRUCTIONS: Patient aware RX will be sent to pharmacy. No need to notify patient. Pamela Conroy [facility] Work Phone: 1(939) 191-868605-02-2024 Miscellaneous Notes* Telephone Encounter - Pamela Kim - 06/19/2023 9:49 AM EDT Patient has been identified by name and date of : Yes Requested Prescriptions Pending Prescriptions Disp Refills hnkqepvdiot-tmmsvyyog-sodeqzuc (TRELEGY ELLIPTA) 100-62.5-25 mcg inhalation powder 60 Each 5 Sig: Inhale 1 Puff as instructed once daily. RX INSTRUCTIONS: Patient aware RX will be sent to pharmacy. No need to notify patient. Pamela Conroy documented in this encounterClermont County Hospital04-04-2024 Miscellaneous Notes* Telephone Encounter - Myra Mcgrath MA - 05/22/2023 12:15 PM EDT Letter sent to patient * Telephone Encounter - Myra Mcgrath MA - 05/15/2023 9:43 AM EDT Cardiology 07/09/23 appt. Mailbox is full, unable to leave message. V-cube Japanhart message sent. * Telephone Encounter - Rober Rubio MD - 05/15/2023 8:58 AM EDT No definite a fib seen on monitor. Does have frequent extra eats from her upper chambers. We set her up to see cardiology which I believe is in June. Keep follow up with them. How are palpitations? documented in this encounterClermont [facility] Hospital01-08-2024 History of Present illness Narrative* Suzanna [...] 24, 2023 3:15 PM documented in this encounterClermont County Hospital12-20-2023 Consult note Author Catie Huang [facility] February 05, 2023 11:58am Note Date/Time February 05, 2023 11:58am [facility] Medical Records Department [address] [place] [address] Counseling Note - Pharmacy 02/05/23 1157 MR#: [id number] Acct: [id number] Name: EMILY LOPEZ Rep #:[id number] 2 : 1950 72 From: Catie Huang PCP: Dr. Rober Rubio MD Status:ADM I N Y Location: [place] [address] Pharmacy [facility] has performed discharge [...] tablet 40 mg PO DAILY 03/08/20 vitamins A,C,W-zmkz-mjeoei 2,148 mcg-113 mg-45 mg-17.4 mg tablet 1 [...] Signature (if applicable): Date CC: ~ Signed [facility] Work Phone: 1(388) 423-299012-20-2023 Discharge summary Author Hari Iniguez [facility] February 05, 2023 10:53am Note Date/Time February 05, 2023 10:50am [facility] Medical Records Department [address] [place] [address] Discharge Summary 02/05/23 1045 MR#: [id number] Acct: [id number] Name: EMILY LOPEZ Rep #:[id number] 7 : 1950 72 From: Hari Iniguez DO PCP: Dr. Rober Rubio MD Status:ADM I N Location: [place] [address] Providers Date of Admission: 01/31/23 Primary Care [...] tablet 40 mg PO DAILY 03/08/20 vitamins A,C,S-owhn-xqvtst 2,148 mcg-113 mg-45 mg-17.4 mg tablet 1 [...] MG tablet 40 mg PO DAILY vitamins A,C,M-domf-mitqvp 1 EACH tablet 1 ea PO DAILY [...] Self Care Charges/Coding Visit Charges Inpatient E&M: 45495 Disch Hosp >30min 12/20/23 1053 <Electronically signed by Hari Iniguez DO> Cosigner Signature (if applicable): CC: Dr. Hari Iniguez DO; Dr. Rober Rubio MD~ Signed [facility] Work Phone: 1(393) 461-194712-20-2023 [facility] Medical Records Department [address] [place] [address] Discharge Summary 02/05/23 1045 MR#: [id number] Acct: [id number] Name: EMILY LOPEZ Rep #: [id number] : 1950 72 From: Hari Iniguez DO PCP: Dr. Rober Rubio MD Status:ADM IN Location: [place] [address] Providers Date of Admission: 01/31/23 Primary Care [...] tablet 40 mg PO DAILY 03/08/20 vitamins A,C,F-whdp-qnukqa 2,148 mcg-113 mg-45 mg-17.4 mg tablet 1 [...] while you were (more content not included)... [facility]12-20-2023 Progress note Author Hari Iniguez [facility] February 05, 2023 10:45am Note Date/Time February 05, 2023 8:57am [facility] Medical Records Department [address] [place] [address] Progress Note - Hospitalist 02/05/23 0856 MR#: [id number] Acct: [id number] Name: EMILY LOPEZ Rep #:[id number] 6 : 1950 72 From: Hari Iniguez DO PCP: Dr. Rober Rubio MD Status:ADM I N Location: [place] [address] Subjective Subjective Feels well. No events overnight. [...] Cosigner Signature (if applicable): CC: ~ Signed [facility] Work Phone: 1(875) 547-931512-19-2023 Progress note Author Hari Iniguez [facility] February 04, 2023 2:50pm Note Date/Time February 04, 2023 8:32am [facility] Medical Records Department [address] [place] [address] Progress Note - Hospitalist 02/04/23 0831 MR#: [id number] Acct: [id number] Name: EMILY LOPEZ Rep #:[id number] 2 : 1950 72 From: Hari Iniguez DO PCP: Dr. Rober Rubio MD Status:ADM I N Location: [place] [address] Reason for Visit Reason for Visit: Diagnoses [...] pending echocardiogram. Charges/Coding Visit Charges Inpatient E&M: 61850 Subs Hosp L2 02/04/23 1450 <Electronically signed by Hari Iniguez DO> Cosigner Signature (if applicable): CC: ~ Signed [facility] Work Phone: 1(543) 722-329312-18-2023 Progress note Author Hari Iniguez [facility] February 03, 2023 2:30pm Note Date/Time February 03, 2023 9:14am [facility] Medical Records Department [address] [place] [address] Progress Note - Hospitalist 02/03/23910 MR#: [id number] Acct: [id number] Name: EMILY LOPEZ Rep #:[id number] 7 : 1950 72 From: Hari Iniguez DO PCP: Dr. Rober Rubio MD Status:ADM I N Location: [place] [address] Subjective Subjective Breathing well, still feels sick. [...] pending echocardiogram. Charges/Coding Visit Charges Inpatient E&M: 90480 Subs Hosp L2 02/03/23 1430 <Electronically signed by Hari Iniguez DO> Cosigner Signature (if applicable): CC: ~ Signed [facility] Work Phone: 1(276) 377-572212-17-2023 Progress note Author [facility] February 02, 2023 1:18pm Note Date/Time February 02, 2023 1:18pm [facility] Medical Records Department [address] [place] [address] Progress Note - Hospitalist 02/02/23 1311 MR#: [id number] Acct: [id number] Name: EMILY LOPEZ Rep #:[id number] 3 : 1950 72 From: Maurizio don DO PCP: Dr. Rober Rubio MD Status:ADM I N Location: [place] [address] Reason for Visit Reason for Visit: Diagnoses [...] is a 72-year-old female who presented to [facility] ED on 01/31/23 with worsening [...] 35 minutes. Charges/Coding Visit Charges Inpatient E&M: 58784 Subs Hosp L2 02/02/23 1318 <Electronically signed by Maurizio Wells DO> Cosigner Signature (if applicable): CC: ~ Signed [facility] Work Phone: 1(389) 658-264712-16-2023 Progress note Author Maurizio [facility] February 01, 2023 3:30pm Note Date/Time February 01, 2023 3:26pm [facility] Medical Records Department [address] [place] [address] Progress Note - Hospitalist 02/01/23 1521 MR#: [id number] Acct: [id number] Name: EMILY LOPEZ Rep #:[id number] 4 : 1950 72 From: Maurizio don DO PCP: Dr. Rober Rubio MD Status:ADM I N Location: [place] [address] Reason for Visit Reason for Visit: Diagnoses [...] 89.1 H, Lymph % (Auto) 5.8 L, [place] % (Auto) 4.1, Eos % (Auto) 0.0, [...] is a 72-year-old female who presented to [facility] ED on 01/31/23 with worsening [...] 35 minutes. Charges/Coding Visit Charges Inpatient E&M: 96482 Subs Hosp L2 02/01/23 1530 <Electronically signed by Maurizio Wells DO> Cosigner Signature (if applicable): CC: ~ Signed [facility] Work Phone: [phone] Progress note Author [facility] February 01, 2023 4:47am Note Date/Time February 01, 2023 4:47am [facility] Medical Records Department [address] [place] [address] Progress Note - Hospitalist 02/01/23446 MR#: [id number] Acct: [id number] Name: EMILY LOPEZ Rep #:[id number] 1 : 1950 72 From: Karen Mendez MD PCP: Dr. Rober Rubio MD Status:ADM I N Location: [place] [address] Hospitalist Note Staff reported respiratory panel results per laboratory with positive influenza A H1. Will initiate Tamiflu. 02/01/23446 <Electronically signed by Karen Mendez MD> Cosigner Signature (if applicable): CC: ~ Signed [facility] Work Phone: [phone] History and physical note Author Deborah Barron [facility] January 31, 2023 5:30pm Note Date/Time January 31, 2023 5:21pm [facility] Medical Records Department [address] [place] [address] H&P Exam - Hospitalist 01/31/231716 MR#: [id number] Acct: [id number] Name: EMILY LOPEZ Rep #:[id number] 7 : 1950 72 From: Deborah Barron MD PCP: Dr. Rober Rubio MD Status:ADM I N Location: [place] [address] HPI - General General Date of Admission: 01/31/23 Date of Service: 01/31/23 Chief Complaint: Increasing SOB HPI Narrative EMILY LOPEZ, is a 72 F with hypertension, former tobacco use, O2 nightly, and insomnia who presents to [facility] 01/31/2023 due to increasing shortness [...] very well. No chest pain, no swelling. [facility] Medical History (Updated 01/31/23 @ 17:27 by [...] DAILY 03/08/20 [History Last Taken Unknown] vitamins A,C,O-odax-xpidja 2,148 mcg-113 mg-45 mg-17.4 mg tablet 1 [...] 77.4 H, Lymph % (Auto) 10.2 L, [place] % (Auto) 11.0 H, Eos % (Auto) [...] Barron MD; Dr. Rober Rubio MD~ Signed [facility] Work Phone: 1([phone]) 799-897012-15-2023 Discharge summary Author Stevo Alcantara [facility] January 31, 2023 5:02pm Note Date/Time January 31, 2023 4:00pm [facility] Medical Records Department [address] [place] [address] Emergency Department Summary 01/31/23 MR#: [id number] Acct: [id number] Name: EMILY LOPEZ Rep #:[id number] 8 : 1950 72 From: Stevo Conklin PCP: Dr. Rober Rubio MD Status:ADM I N Location: [address] History of Present Illness Chief Complaint: [...] has dyspnea with exertion to the bathroom. [facility] Medical History COVID Diabetes HTN (hypertension) [...] DAILY 03/08/20 [History Last Taken Unknown] vitamins A,C,H-dwsr-qhgwur 2,148 mcg-113 mg-45 mg-17.4 mg tablet 1 [...] 77.4 H Lymph % (Auto) 10.2 L [place] % (Auto) 11.0 H Eos % (Auto) [...] bronchospasm, Hypoxia Disposition Disposition: Acute Care Hospital [facility] What to do if you have Problems For any increased pain, shortness of breath, bleeding, nausea or vomiting, chest pain, or any unexpected problems, contact your Primary Care Provider. Call [facility] ([phone]) or report to the closest Emergency Room. Call 911 if necessary. 01/31/23 1702 <Electronically signed by [facility] DO> Cosigner Signature (if applicable): CC: Dr. Rober Rubio MD ~ Signed [facility] Work Phone: 1([phone]) 111-506512-15-2023 Discharge summary Author Stevo Alcantara [facility] January 31, 2023 5:02pm Note Date/Time January 31, 2023 4:00pm [facility] Medical Records Department [address] [place] [address] Emergency Department Summary 01/31/23 MR#: [id number] Acct: [id number] Name: EMILY LOPEZ Rep #:[id number] 8 : 1950 72 From: Stevo Conklin PCP: Dr. Rober Rubio MD Status:ADM I N Location: [address] History of Present Illness Chief Complaint: [...] has dyspnea with exertion to the bathroom. [facility] Medical History COVID Diabetes HTN (hypertension) [...] DAILY 03/08/20 [History Last Taken Unknown] vitamins A,C,L-wteu-vzahzr 2,148 mcg-113 mg-45 mg-17.4 mg tablet 1 [...] 77.4 H Lymph % (Auto) 10.2 L [place] % (Auto) 11.0 H Eos % (Auto) [...] bronchospasm, Hypoxia Disposition Disposition: Acute Care Hospital [facility] What to do if you have Problems For any increased pain, shortness of breath, bleeding, nausea or vomiting, chest pain, or any unexpected problems, contact your Primary Care Provider. Call [facility] ([phone]) or report to the closest Emergency Room. Call 911 if necessary. 01/31/23 1702 <Electronically signed by Stevo Alcantara DO> Cosigner Signature (if applicable): CC: Dr. Rober Rubio MD ~ Signed [facility] Work Phone: 1(859) 275-446308-21-2023 Miscellaneous Notes* Telephone Encounter - Gil Garnica [...] Take 1 tablet by mouth once daily. yyhrypdkfmx-sktoqrxlt-xtkhjrza (TRELEGY ELLIPTA) 100-62.5-25 mcg inhalation powder 60 Each 5 Sig: Inhale 1 Puff as instructed once daily. lisinopril (ZESTRIL) 40 mg tablet 90 tablet 3 Sig: Take 1 tablet by mouth once daily. metFORMIN (GLUCOPHAGE) 500 mg tablet 90 tablet 3 Sig: Take 1 tablet by mouth daily with breakfast. Please review and advise. 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 Hanh Wynn documented in this encounterClermont County Hospital11-29-2022 Instructions* Patient Instructions* Martin Benites APRN.CNP - 01/15/2022 3:49 PM EST Return in 1 year for annual LDCT lung cancer screening. documented in this encounterClermont [facility] Hospital11-29-2022 History of Present illness Narrative* Martin [...] due to vision issues. 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 Interpretive Statements 2 Puffs of albuterol (180mcg) delivered by MDI via Aerochamber HRpre =101 /min, HRpost= 101/min. ATS/ERS acceptability and repeatability standards for spirometry met. IMPRESSION: Spirometry indicates moderate obstruction. There was not a significant bronchodilator response. Electronically Signed On 03-09-2020 16:26:46 EST by Hoda Cyr M.D. Site: WO ID: [id number] Name: EMILY LOPEZ Visit Date: 03/08/2020 Second ID: [id number] Referring Doctor: Rober MONTERO Warp Scouring Vat Tender: STEPHY Scales Age: 69 : 1950 Sex: Female Race: Height: 61.80 Inches Weight: 187.00 Lbs BSA: 1.85 Order IDs: [id number] Requested Test(s): Spirometry - baselline and post [...] - 01/15/2022 11:23 PM EST TEACHING PROVIDER (Physician/PA/FAMILY PARTNER) NOTE OF PERSONAL INVOLVEMENT IN CARE: I [...] abstain from nicotine use. Signature: Sandra Taylor APRN.MANAGER LEASING Date: 01/15/2022 Time: 11:07 PM documented in [facility]11[facility]29-[facility] History of Present illness Narrative* Singh [...] 15, 2022 11:17 AM documented in this encounterClermont [facility]10-27-2022 Miscellaneous Notes* Telephone Encounter - Rod Reich RN - 12/13/2021 1:08 PM EDT Patient calls to let provider know that she needs an order for a CXR faxed to [facility] at [phone]. No orders for CXR in chart noted. Patient scheduled to have a CT Lung Screen on 12/20/2021 but no order on file noted. Contacted [facility] who reports they need CT Lung Screen Order. CT Lung Screen was originally performed outside of [facility]. This was to be 6 month follow up. Patient no-show to CT Scan and follow up appointment with Pulmonary 09/18/2021 with Sandra Taylor . Notified ordering provider. Rod Reich, RN documented in this encounterClermont [facility] Hospital10-20-2022 Miscellaneous Notes* Telephone Encounter - Myra [...] Thanks, Jimmie Monroe PA-C documented in this [facility]10-13-2022 Instructions* Patient Instructions* Nicola Monroe PA-C - [...] your usual activities immediately. documented in this encounterClermont [facility]10-13-2022 History of Present illness Narrative* Nicola Monroe PA-C - 11/29/2021 11:20 AM EDT Emily Lopez is a 71 year old female new to me here for a Medicare subsequent annual visit Health Risk Assessment In general, health is: Good Concerns with tiredness, difficulties with sexual function, balance, teeth/dentures: Not at all [place] anxious, stressed, angry, irritable, lonely, isolated, or [...] breath) Copd with chronic bronchitis (hcc) Hypoxia Leakage Tester: Dr. Hoda Cyr. Interval history: under evaluation. [...] fracture 06/06/10 healed with sling [facility]ed at [facility] 1995 Endometriosis: has hysterectomy, 2 weeks [...] at this time. - Patient was counseled [id number] by myself (the billing provider) for the [...] Identified on-line site for reporting complications from [place]-resource given to patient 12 minute chart prep, 57 minute visit - Nicola Monroe PA-C documented in this encounterClermont [facility] Hospital09-22-2022 Miscellaneous Notes* Telephone Encounter - Edwige Islas [facility] - 11/08/2021 11:51 AM EDT Patient has been identified by name and date of : Yes Requested Prescriptions Pending Prescriptions Disp Refills dvqkczzcmvo-owbxgiywc-vflvdfuj (TRELEGY ELLIPTA) 100-62.5-25 mcg inhalation powder 60 Each 5 Sig: Inhale 1 Puff as instructed once daily. RX INSTRUCTIONS: Patient aware RX will be sent to pharmacy. No need to notify patient. [facility] documented in this encounterClerm[facility]08-03-2022 Miscellaneous Notes* Telephone Encounter - Lisa [...] 11:01 AM EDT Attempted to call Emily ([phone]), no answer and the voicemail box is [...] and generate recall letter documented in this encounterClermont [facility] Hospital08-02-2022 History of Present illness Narrative* Sandra Taylor APRN.[facility] - 09/18/2021 1:30 PM EDT Images from the original note were not included. No Show for follow up visit. Sandra Taylor APRN.[facility] documented in this encounterClermont [facility] Hospital07-22-2022 Miscellaneous Notes* Telephone Encounter - Lisa Fatima RN - 09/07/2021 3:53 PM EDT Scheduled for 09/14/2021 at 10:30 am. Lisa Fatima RN * Telephone Encounter - Lisa Fatima RN - 09/03/2021 12:51 PM EDT ----- Message from Gris Israel PA-C sent at 09/03/2021 10:06 AM EDT ----- Please schedule patient for VV or office visit to review path results documented in this encounterClermont [facility] Hospital07-11-2022 History and physical note * Rm [...] Take 1 tablet by mouth once daily. uwlongvcexz-vqxxruasv-angshtos (TRELEGY ELLIPTA) 100-62.5-25 mcg inhalation powder Inhale [...] instructed every 4 hours as needed. vit A,C,X-Kvlh-Nfadbr (PRESERVISION AREDS) 7,160-113-100 ybex-wd-aysx tab Take by mouth. aspirin, enteric coated [...] entered by the nurse and reviewed by ma Nursing Notes: Rae Donaldson LPN 04/10/2021 3:13 [...] patient was offered a surgery/procedure [facility]. I have counseled the patient [...] mail. Gris Israel PA-C documented in this encounterClermont [facility] Hospital05-17-2022 Miscellaneous Notes* Telephone Encounter - Emilee Montelongo Pss - 07/03/2021 11:52 AM EDT Pharmacy verified in [facility] Patient has been identified by name [...] advise. Emilee Montelongo Pss documented in this encounterClermont [facility] Hospital05-09-2022 Instructions* Patient Instructions* Ro Babb APRN.[facility] - 06/25/2021 1:32 PM EDT Images from the original note were not included. Heart Disease in Women Is heart disease a problem for women? Heart disease is the leading cause of of [place] women. More women from heart disease than [...] disease. You can get more information from: [place] [facility] Ambfrsfebnu2-610-EIO-USA-1 ( )www.heart.org Developed by [employer]. Published by [employer]. Copyright 2014 [employer] and/or one of its subsidiaries. All rights [...] the health of your heart. Developed by [employer]. Published by [employer]. Copyright 2014 [employer] and/or one of its subsidiaries. All rights reserved. documented in this encounterClermont County Hospital05-09-2022 History of Present illness Narrative* Ro Babb APRN.MANAGER LEASING - 06/25/2021 1:06 PM EDT Images from the original note were not included. [facility]ARDIOLOGY Cardiology ([facility]) [address] [facility] [id number] OUTPATIENT VISIT June 25, 2021 1:00 PM [...] prescribed. she is planning a trip to [place] this July. PAST MEDICAL HISTORY Diagnosis Date [...] by mouth once daily. 90 tablet 3 duljxkzmmha-smexktkyc-gxyckxdz (TRELEGY ELLIPTA) 100-62.5-25 mcg inhalation powder Inhale [...] hours as needed. 18 g 3 vit A,C,C-Wpty-Ccopxd (PRESERVISION AREDS) 7,160-113-100 qhal-gk-cykx tab Take by mouth. 0 aspirin, enteric [...] injection (DEFINITY) INTRAVENOUS DIRECTED PRN Lorenza Vo APRN.MANAGER LEASING sodium chloride 0.9 % (flush) 10 mL (BD POSIFLUSH) 10 mL INTRAVENOUS DIRECTED PRN Lorenza Vo APRN.MANAGER LEASING Review of Systems Constitutional: Negative for chills, [...] 25, 2021, 1:06 PM documented in this encounterClermont [facility] Hospital04-27-2022 Miscellaneous Notes* Telephone Encounter - Sanjuana [...] and advise. Sanjuana Triana documented in this [facility]02-22-2022 Miscellaneous Notes* Telephone Encounter - Gil Clayton - 04/10/2021 4:14 PM EST 08-27-2021 Colon Oakley documented in this encounterClermont [facility] Hospital12-01-2021 Miscellaneous Notes* Telephone Encounter - Drea Snowden Pss - 01/17/2021 2:27 PM EST 1st attempt left message to return call to schedule DM program * Telephone Encounter - Myra Mcgrath Ma - 01/16/2021 3:13 PM EST Images from the original note were not included. Rober Rubio MD P [facility] Set up diabetic management program consults documented in this [facility]12-03-2020 History of Present illness Narrative* Mignon Lester [...] 20, 2020 3:47 PM documented in this encounterClermont [facility] Hospital10-23-2015 History of Past illness Narrative* Problem Noted Date Resolved Date Other emphysema 12/09/2014 07/20/2020 Fracture of proximal humerus 03/24/201404/2018 documented as of this encounter (statuses as of 06/13/2021) [place] [id number] History of Past illness Narrative* Problem Noted Date Resolved Date Other emphysema 12/09/2014 07/20/2020 Fracture of proximal humerus 03/24/201404/2018 documented as of this encounter (statuses as of 06/25/2021) [place] [id number] History of Past illness Narrative* Problem Noted Date Resolved Date Other emphysema 12/09/2014 07/20/2020 Fracture of proximal humerus 03/24/201404/2018 documented as of this encounter (statuses as of 07/02/2021) [place] [id number] History of Past illness Narrative* Problem Noted Date Resolved Date Other emphysema 12/09/2014 07/20/2020 Fracture of proximal humerus 03/24/201404/2018 documented as of this encounter (statuses as of 07/03/2021) [place] [id number] History of Past illness Narrative* Problem Noted Date Resolved Date Other emphysema 12/09/2014 07/20/2020 Fracture of proximal humerus 03/24/201404/2018 documented as of this encounter (statuses as of 07/11/2021) [place] [address] History of Past illness Narrative* Problem Noted Date Resolved Date Other emphysema 12/09/2014 07/20/2020 Fracture of proximal humerus 03/24/201404/2018 documented as of this encounter (statuses as of 07/24/2021) [address]23[address] History of Past illness Narrative* Problem Noted Date Resolved Date Other emphysema 12/09/2014 07/20/2020 Fracture of proximal humerus 03/24/201404/2018 documented as of this encounter (statuses as of 08/28/2021) [address]23[address]2015 History of Past illness Narrative* Problem Noted Date Resolved Date Other emphysema 12/09/2014 07/20/2020 Fracture of proximal humerus 03/24/201404/2018 documented as of this encounter (statuses as of 09/07/2021) [address]23[address]2015 History of Past illness Narrative* Problem Noted Date Resolved Date Other emphysema 12/09/2014 07/20/2020 Fracture of proximal humerus 03/24/201404/2018 documented as of this encounter (statuses as of 09/18/2021) [address]23[address]2015 History of Past illness Narrative* Problem Noted Date Resolved Date Other emphysema 12/09/2014 07/20/2020 Fracture of proximal humerus 03/24/201404/2018 documented as of this encounter (statuses as of 09/19/2021) [address]23[address]2015 History of Past illness Narrative* Problem Noted Date Resolved Date Other emphysema 12/09/2014 07/20/2020 Fracture of proximal humerus 03/24/201404/2018 documented as of this encounter (statuses as of 11/08/2021) [address]23[address]2015 History of Past illness Narrative* Problem Noted Date Resolved Date Other emphysema 12/09/2014 07/20/2020 Fracture of proximal humerus 03/24/201404/2018 documented as of this encounter (statuses as of 11/30/2021) [address]23[address]2015 History of Past illness Narrative* Problem Noted Date Resolved Date Other emphysema 12/09/2014 07/20/2020 Fracture of proximal humerus 03/24/201404/2018 documented as of this encounter (statuses as of 12/06/2021) [place] [address] History of Past illness Narrative* Problem Noted Date Resolved Date Other emphysema 12/09/2014 07/20/2020 Fracture of proximal humerus 03/24/201404/2018 documented as of this encounter (statuses as of 12/14/2021) [place] [address] History of Past illness Narrative* Problem Noted Date Resolved Date Other emphysema 12/09/2014 07/20/2020 Fracture of proximal humerus 03/24/201404/2018 documented as of this encounter (statuses as of 12/17/2021) [place] [address] History of Past illness Narrative* Problem Noted Date Resolved Date Other emphysema 12/09/2014 07/20/2020 Fracture of proximal humerus 03/24/201404/2018 documented as of this encounter (statuses as of 12/21/2021) [place] [address] History of Past illness Narrative* Problem Noted Date Resolved Date Other emphysema 12/09/2014 07/20/2020 Fracture of proximal humerus 03/24/201404/2018 documented as of this encounter (statuses as of 01/16/2022) [place] [address] History of Past illness Narrative* Problem Noted Date Resolved Date Other emphysema 12/09/2014 07/20/2020 Fracture of proximal humerus 03/24/201404/2018 documented as of this encounter (statuses as of 02/25/2022) [facility] N[facility]ative* Problem Noted Date Resolved Date Other emphysema 12/09/2014 07/20/2020 Fracture of proximal humerus 03/24/201404/2018 documented as of this encounter (statuses as of 03/18/2022) [facility] Narrative* Problem Noted Date Resolved Date Other emphysema 12/09/2014 07/20/2020 Fracture of proximal humerus 03/24/201404/2018 documented as of this encounter (statuses as of 06/07/2022) [facility] Narrative* Problem Noted Date Resolved Date Other emphysema 12/09/2014 07/20/2020 Fracture of proximal humerus 03/24/201404/2018 documented as of this encounter (statuses as of 06/18/2022) [place] [address] History of Past illness Narrative* Problem Noted Date Diagnosed Date Resolved Date Other emphysema 12/09/2014 07/20/2020 Fracture of proximal humerus 03/24/2014 02/19/2018 documented as of this encounter (statuses as of 10/07/2022) [place] [address] History of Past illness Narrative* Problem Noted Date Diagnosed Date Resolved Date Other emphysema 12/09/2014 07/20/2020 Fracture of proximal humerus 03/24/2014 02/19/2018 documented as of this encounter (statuses as of 12/22/2022) [address]23[address]2015 History of Past illness Narrative* Problem Noted Date Diagnosed Date Resolved Date Other emphysema 12/09/2014 07/20/2020 Fracture of proximal humerus 03/24/2014 02/19/2018 documented as of this encounter (statuses as of 01/27/2023) [facility] Narrative* Problem Noted Date Diagnosed Date Resolved Date Other emphysema 12/09/2014 07/20/2020 Fracture of proximal humerus 03/24/2014 02/19/2018 documented as of this encounter (statuses as of 05/23/2023) [facility] Diagnosis Vitamin D deficiency Unspecified vitamin D deficiency documented in this encounter [facility] [place] [facility]* Diagnosis Primary hypertension- Primary Unspecified essential hypertension Coronary artery calcification Coronary atherosclerosis of unspecified type of vessel, [place] or graft Aortic valve calcification Aortic valve disorders Mixed hyperlipidemia documented in this encounter [facility] [place] [facility]* Diagnosis Screening for colon cancer- Primary Special screening for malignant neoplasms, colon Personal history of colonic polyps documented in this encounter [facility] [place] [facility]* Diagnosis Type 2 diabetes mellitus without complication, with long-term current use of insulin (HCC) Hyperlipidemia, unspecified hyperlipidemia type Pulmonary emphysema, unspecified emphysema type (HCC) documented in this encounter [facility] [place] [facility]* Diagnosis Encounter for screening laboratory testing for COVID-19 virus in asymptomatic patient- Primary Encounter for screening for COVID-19 documented in this encounter [facility] [place] [facility]* Diagnosis Screening for colon cancer Special screening for malignant neoplasms, colon Personal history of colonic polyps documented in this encounter [facility] [place] [facility]* Diagnosis No-show for appointment- Primary documented [facility]* Diagnosis Medicare annual wellness visit, subsequent- Primary Routine general medical examination at a health care facility Primary hypertension Unspecified essential hypertension Coronary artery calcification Coronary atherosclerosis of unspecified type of vessel, [place] or graft Aortic valve calcification Aortic valve [...] 30-34.9 Obesity, unspecified documented in this encounter [facility] [place] [facility]* Diagnosis Type 2 diabetes mellitus without complication, without long-term current use of insulin (HCC)- [facility] Lung nodules- Primary Other nonspecific abnormal finding of lung field [facility]* Diagnosis Lung nodules Other nonspecific abnormal finding of lung field [facility]* Diagnosis Lung nodules- Primary Other nonspecific abnormal finding of lung field Former tobacco use Personal history of tobacco use, presenting hazards to health [facility]* Diagnosis Encounter for screening mammogram for breast cancer [facility]* Diagnosis Essential hypertension Unspecified essential hypertension [facility]* Diagnosis Type 2 diabetes mellitus without complication, without long-term current use of insulin (HCC) documented in this encounter [facility] [place] [facility]* Diagnosis Pulmonary emphysema, unspecified emphysema type (HCC) Essential hypertension Unspecified essential hypertension Hyperlipidemia, unspecified hyperlipidemia type SOB (shortness of breath) Shortness of breath COPD with chronic bronchitis (HCC) Obstructive chronic bronchitis without exacerbation Type 2 diabetes mellitus without complication, with long-term current use of insulin (HCC) [facility]* Diagnosis Asymptomatic postmenopausal status [facility]* Diagnosis Encounter for screening mammogram for breast cancer [facility]* Diagnosis Pulmonary emphysema, unspecified emphysema type (HCC) SOB (shortness of breath) Shortness of breath COPD with chronic bronchitis (HCC) Obstructive chronic bronchitis without exacerbation [facility] Diagnosis Atrial fibrillation with RVR (HCC)- Primary Atrial fibrillation Primary hypertension Unspecified essential hypertension Lung nodule Solitary pulmonary nodule COPD with chronic bronchitis (HCC) Obstructive chronic bronchitis without exacerbation Fatty liver Other chronic nonalcoholic liver disease Type 2 diabetes mellitus without complication, without long-term current use of insulin (HCC) Obesity, Class I, BMI 30-34.9 Obesity, unspecified documented in this encounter [facility] [place] [facility]* Diagnosis Hyperlipidemia, unspecified hyperlipidemia type documented in this encounter [facility] [place] [facility]* Diagnosis Multiple lung nodules- Primary Other nonspecific abnormal finding of lung field Encounter for screening for lung cancer Former tobacco use Personal history of tobacco use, presenting hazards to health COPD with chronic bronchitis (HCC) Obstructive chronic bronchitis without exacerbation Acute bronchiolitis due to unspecified organism [facility]* Diagnosis Personal history of tobacco use, presenting hazards to health [facility] Diagnosis Lung nodules- Primary Other nonspecific abnormal finding of lung field [facility]* Diagnosis Postural dizziness- Primary Dizziness and giddiness Type 2 diabetes mellitus without complication, with long-term current use of insulin (HCC) Blood pressure alteration Other abnormal clinical finding Type 2 diabetes mellitus with hyperglycemia, without long-term current use of insulin ([facility]) Vitamin D deficiency Unspecified vitamin D deficiency documented in this encounter [facility] [place] [facility]* Diagnosis PVD (peripheral vascular disease) ([facility])- Primary Peripheral vascular disease, unspecified documented in this encounter [facility] [place] [facility]* Diagnosis Postural dizziness- Primary Dizziness and giddiness Blood pressure alteration Other abnormal clinical finding [facility]* Diagnosis Carotid stenosis, asymptomatic, bilateral- Primary PVD (peripheral vascular disease) ([facility]) Peripheral vascular disease, unspecified Left subclavian artery occlusion documented in this encounter [facility] [place] [facility]* Diagnosis Coronary artery calcification- Primary Coronary atherosclerosis of unspecified type of vessel, [place] or graft Primary hypertension Unspecified essential hypertension Mixed hyperlipidemia Paroxysmal atrial fibrillation (HCC) Atrial fibrillation On apixaban therapy documented in this encounter [facility] [place] [facility]* Diagnosis Primary hypertension- Primary Unspecified essential hypertension documented in this encounter [facility] [place] [facility]* Diagnosis Congestive heart failure, unspecified HF chronicity, unspecified heart failure type ([facility]) documented in this encounter [facility] [place] [facility]* Diagnosis Pulmonary emphysema, unspecified emphysema type (HCC) SOB (shortness of breath) Shortness of breath [facility] [place] [facility]* Diagnosis PVD (peripheral vascular disease) ([facility])- Primary Peripheral vascular disease, unspecified Carotid stenosis, asymptomatic, bilateral documented in this encounter [facility] note* Diagnosis Essential hypertension Unspecified essential hypertension documented in this encounter [facility] note* Diagnosis Onset Date Resolution Status Acute bronchitis with bronchospasm acute Hypoxia acute [facility] Work Phone: [facility] [place] [facility]* Diagnosis Encounter for screening mammogram for breast cancer documented in this encounter [facility] note* Diagnosis Multiple lung nodules- Primary Other nonspecific abnormal finding of lung field Encounter for screening for lung cancer Former tobacco use Personal history of tobacco use, presenting hazards to health documented in this encounter [facility] note* Diagnosis Lung nodules Other nonspecific abnormal finding of lung field documented in this encounter [facility] note* Diagnosis Onset Date Resolution Status Acute bronchitis with bronchospasm acute Hypoxia acute Influenza A acute COPD exacerbation chronic [facility] Work Phone: Evaluation note* Diagnosis Atrial fibrillation with RVR ([facility])- Primary Atrial fibrillation documented in this encounter [facility] note* Diagnosis Moderate COPD (chronic obstructive pulmonary disease) ([facility])- Primary Chronic airway obstruction, not elsewhere classified Former smoker Personal history of tobacco use, presenting hazards to health Class 2 obesity Atelectasis Pulmonary collapse [facility] [place] [facility] Diagnosis Emphysema, unspecified ([facility]) documented in this encounter [facility] note* Diagnosis Essential hypertension- Primary Unspecified [...] anticoagulants Mixed hyperlipidemia documented in this encounter [facility] note* Diagnosis Type 2 diabetes mellitus without complication, without long-term current use of insulin (HCC)- Primary documented in this encounter [facility] note* Diagnosis Type 2 diabetes mellitus without complication, without long-term current use of insulin (HCC)- Primary [facility] [place] [facility]* Diagnosis Fatty liver- Primary Other chronic nonalcoholic liver disease [facility] [place] [facility] Diagnosis COPD with chronic bronchitis (HCC) Obstructive chronic bronchitis without exacerbation documented in this encounter [facility] note* Diagnosis Left subclavian artery occlusion- Primary Carotid stenosis, asymptomatic, bilateral documented in this encounter [facility] note* Diagnosis Chronic atrial fibrillation (HCC)- [...] bronchitis without exacerbation [facility] [place] [facility]* Diagnosis Onset Date Resolution Status Admit [...] HTN (hypertension) chronic September 20, 2024 5:53pm [facility] Work Phone: Reason for referral (narrative)* Outpatient Procedure (Routine) - Authorized Specialty Diagnoses / Procedures Referred By Contac t Referred To Contact [facility] Diagnoses Screening for colon cancer Personal history of colonic polyps Procedures COLONOSCOPY SCREENING COLONOSCOPY FLX DX W/COLLJ SPEC WHEN PFRMD Gris Israel PA-C [address] [place] [address] [facility] [address] [place] [address] Referral ID Status Reason Start Date Expiration Date Visits Requested Visits Authorized [id number] Authorized Auto-Generat ed Referral 04/10/2021 04/10/2022 1 1 [facility] for referral (narrative)* Outpatient Procedure (Routine) - Closed Specialty Diagnoses / Procedures Referred By Angella beckham Referred To Contact [facility] Diagnoses Screening for colon cancer Personal history of colonic polyps Procedures COLONOSCOPY SCREENING COLONOSCOPY FLX DX W/COLLJ SPEC WHEN PFRMD Gris Israel PA-C [address] [place] [address] [facility] [address] [place] [address] Referral ID Status Reason Start Date Expiration Date V isits Requested Visits Authorized [id number] Closed Auto-Generate d Referral 04/10/2021 04/10/2022 1 1 [facility] for referral (narrative)* Diagnostic Procedure Only (Routine) - Pending Review Specialty Diagnoses / Procedures Referred By Angella beckham Referred To Contact [facility] Diagnoses Encounter for screening mammogram for breast cancer Procedures KATINA SCREENING SCREENING MAMMOGRAPHY BI 2-VIEW BREAST INC Rober Yao MD [address] [place] [address] [facility] [address] [place] [address] Referral ID Status Reason Start Date Expiration Date Visits Requested Visits Authorized [id number] Pending Review Auto-Generat ed Referral 02/20/2022 03/22/2023 1 1 [facility] for referral (narrative)* Diagnostic Procedure Only (Routine) - Pending Review Specialty Diagnoses / Procedures Referred By Contjoceline t Referred To Contact [facility] Diagnoses Encounter for screening mammogram for breast cancer Procedures KATINA SCREENING SCREENING MAMMOGRAPHY BI 2-VIEW BREAST INC Rober Yao MD [address] [place] [address] [facility] [address] [place] [address] Referral ID Status Reason Start Date Expiration Date Visits Requested Visits Authorized [id number] Pending Review Auto-Generat ed Referral 01/22/2023 02/21/2024 1 1 [facility] for referral (narrative)* Outpatient Procedure (Routine) - Authorized Specialty Diagnoses / Procedures Referred By Contac t Referred To Contact [facility] Diagnoses Blood pressure alteration Type 2 diabetes mellitus with hyperglycemia, without long-term current use of insulin ([facility]) Procedures US ARM ARTERIAL [facility] DUP-SCAN UXTR ART/ARTL BPGS COMPL BI STUDY Lorenza Vo APRN.MANAGER LEASING [address] [place] [address] [address] Referral ID Status Reason Start Date Expiration Date Visits Requested Visits Authorized [id number] Authorized Auto-Generat ed Referral 08/08/2023 08/07/2024 1 1 [facility] for referral (narrative)* Outpatient Procedure (Routine) - Authorized Specialty Diagnoses / Procedures Referred By Contac t Referred To Contact [facility] Diagnoses PVD (peripheral vascular disease) ([facility]) Procedures PVR LEG [facility] NON-INVASIVE PHYSIOLOGIC STUDY EXTREMITY 3 Emily Wharton DO [address] [place] [address] [address] Referral ID Status Reason Start Date Expiration Date Visits Requested Visits Authorized [id number] Authorized Auto-Generat ed Referral 09/29/2023 09/28/2024 1 1 * Outpatient Procedure (Routine) - Authorized Specialty Diagnoses / Procedures Referred By Contac t Referred To Contact [facility] Diagnoses Carotid stenosis, asymptomatic, bilateral Left subclavian artery occlusion Procedures US CAROTID ARTERIES [facility] DUPLEX SCAN EXTRACRANIAL ART COMPL BI STUDY Emily Adams, DO [address] [place] [address] [address] Referral ID Status Reason Start Date Expiration Date Visits Requested Visits Authorized [id number] Authorized Auto-Generat ed Referral 09/29/2023 09/28/2024 1 1 [facility] for referral (narrative)* Outpatient Procedure (Routine) - Authorized Specialty Diagnoses / Procedures Referred By Contac t Referred To Contact [facility] Diagnoses PVD (peripheral vascular disease) (HCC) Procedures PVR ANK PRESS [facility] NON-INVAS PHYSIOLOGIC STD EXTREMITY ART 2 LEVEL Emily Adams, DO [address] [place] [address] [address] Referral ID Status Reason Start Date Expiration Date Visits Requested Visits Authorized [id number] Authorized Auto-Generat ed Referral 11/04/2023 11/03/2024 1 1 * Outpatient Procedure (Routine) - Authorized Specialty Diagnoses / Procedures Referred By Contac t Referred To Contact [facility] Diagnoses Carotid stenosis, asymptomatic, bilateral Procedures US CAROTID ARTERIES [facility] DUPLEX SCAN EXTRACRANIAL ART COMPL STUDY Emily Adams, DO [address] [place] [address] [address] Referral ID Status Reason Start Date Expiration Date Visits Requested Visits Authorized [id number] Authorized Auto-Generat ed Referral 11/04/2023 11/03/2024 1 1 [facility] for referral (narrative)* Diagnostic Procedure Only (Routine) - New Request Specialty Diagnoses / Procedures Referred By Contac t Referred To Contact [facility] Diagnoses Encounter for screening mammogram for breast cancer Procedures KATINA SCREENING W RODDY SCREENING DIGITAL BREAST TOMOSYNTHESIS BI SCREENING MAMMOGRAPHY BI 2-VIEW BREAST INC CAD Rober Rubio MD [address] [place] [address] [facility] [address] [place] [address] Referral ID Status Reason Start Date Expiration Date Visits Requested Visits Authorized [id number] New Request Auto-Generat ed Referral 01/21/2024 02/19/2025 1 1 [facility]No reason for referral [facility] Work [facility]: Reptdy for visit Narrative* Outpatient Procedure (Routine) - Closed Specialty Diagnoses / Procedures Referred By Angella t Referred To Contact [facility] Diagnoses Screening for colon cancer Personal history of colonic polyps Procedures COLONOSCOPY SCREENING COLONOSCOPY FLX DX W/COLLJ SPEC WHEN PFRMD Gris Israel PA-C [address] [facility] 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 Advance Directive(s) 12/04/2016 9:56 AM Documents on File Type Date Recorded Patient Stoker Erector Expl anation Advance Directive(s) 12/04/2016 9:56 AM Documents on File Type Date Recorded Patient Stoker Erector Expl anation Advance Directive(s) 08/27/2021 9:50 AM Advance Directive(s) 12/04/2016 9:56 AM Documents on File Type Date Recorded Patient Stoker Erector Expl anation Advance Directive(s) 08/27/2021 9:50 AM Advance Directive(s) 12/04/2016 9:56 AM Advance Directive Response Recorded Date/ Time Living Will No Negrito 15th, 2 023 4:50pm Power of Spanish Professor No January 31, 2023 4:50pm Advance Directive Response Recorded Date/ Time Do you have a Healthcare Power of Spanish Professor? Yes September 20, 2024 2:40pm Health Concerns [...] COMPUTED TOMOGRAPHY THORAX W/O CNTRST Becky Matta, FAMILY PARTNER.MANAGER LEASING [address] [place] [address] Ct [facility] Referral ID Status Reason Start Date Expiration Date Visits Requested Visits Authorized [id number] Pending Review Auto-Generat ed Referral 01/13/2023 1 1 Referral ID Status Reason Start Date Expiration Date V isits Requested Visits Authorized [id number] Closed Auto-Generate d Referral 12/14/2021 01/13/2023 1 1 Specialty Diagnoses / Procedures Referred By Contac t Referred To Contact CT [facility] Diagnoses Lung nodules Procedures CT LUNG FOLLOWUP WO IVCON DIAGNOSTIC COMPUTED TOMOGRAPHY THORAX W/O CNTRST Martin Benites, FAMILY PARTNER.MANAGER LEASING [address] [place] [address] [place] [address] Referral ID Status Reason Start Date Expiration Date Visits Requested Visits Authorized [id number] Pending Review Auto-Generat ed Referral 08/01/2023 08/30/2024 1 1 Specialty Diagnoses / Procedures Referred By Contac t Referred To Contact [facility] Diagnoses PVD (peripheral vascular disease) (HCC) Procedures CONSULT TO VASCULAR SURGERY OFFICE/OUTPATIENT [facility] 60 MINUTES Rober Rubio MD [address] [place] [address] Referral ID Status Reason Start Date Expiration Date Visits Requested Visits Authorized [id number] Authorized PCP Requested Referral 09/18/2023 09/17/2024 1 1 Specialty Diagnoses / Procedures Referred By Contac t Referred To Contact CT [facility] Diagnoses Encounter for screening for lung cancer Former tobacco use Procedures CT LUNG SCREEN WO IVCON COMPUTED TOMOGRAPHY THORAX LW DOSE LNG CA SCR C- Martin Benites, FAMILY PARTNER.MANAGER LEASING [address] [place] [address] [place] [address] Referral ID Status Reason Start Date Expiration Date Visits Requested Visits Authorized [id number] Authorized Auto-Generat ed Referral 03/03/2025 1 1 [...] section and content) DATE CREATED AUTHOR 02/02/2020 [facility] DATE CREATED AUTHOR AUTHOR'S ORGANIZ ATION 02/02/2020 [facility] DATE CREATED AUTHOR AUTHOR'S ORGANIZ ATION 02/13/2023 [facility] DATE CREATED AUTHOR AUTHOR'S ORGANIZ ATION 08/01/2023 [facility] DATE CREATED AUTHOR AUTHOR'S ORGANIZ ATION 09/05/2024 [facility] Source Comments (unrecognize d section and content) In the event this informatio n is protected by the Federal Confidentiality of Alcohol and Drug Abuse Patient Records regulations: The Federal rules restrict any use of the information to criminally investigate or prosecute any alcohol or drug abuse patient.[facility] the event this information is protected by the Federal Confidentiality of Alcohol and Drug Abuse Patient Records regulations: The Federal rules restrict any use of the information to criminally investigate or prosecute any alcohol or drug abuse patient.[facility] the event this information is protected by the Federal Confidentiality of Alcohol and Drug Abuse Patient Records regulations: The Federal rules restrict any use of the information to criminally investigate or prosecute any alcohol or drug abuse patient.[facility] the event this information is protected by the Federal Confidentiality of Alcohol and Drug Abuse Patient Records regulations: The Federal rules restrict any use of the information to criminally investigate or prosecute any alcohol or drug abuse patient.[facility] the event this information is protected by the Federal Confidentiality of Alcohol and Drug Abuse Patient Records regulations: The Federal rules restrict any use of the information to criminally investigate or prosecute any alcohol or drug abuse patient.[facility] the event this information is protected by the Federal Confidentiality of Alcohol and Drug Abuse Patient Records regulations: The Federal rules restrict any use of the information to criminally investigate or prosecute any alcohol or drug abuse patient.[facility] the event this information is protected by the Federal Confidentiality of Alcohol and Drug Abuse Patient Records regulations: The Federal rules restrict any use of the information to criminally investigate or prosecute any alcohol or drug abuse patient.[facility] the event this information is protected by the Federal Confidentiality of Alcohol and Drug Abuse Patient Records regulations: The Federal rules restrict any use of the information to criminally investigate or prosecute any alcohol or drug abuse patient.[facility] the event this information is protected by the Federal Confidentiality of Alcohol and Drug Abuse Patient Records regulations: The Federal rules restrict any use of the information to criminally investigate or prosecute any alcohol or drug abuse patient.[facility] the event this information is protected by the Federal Confidentiality of Alcohol and Drug Abuse Patient Records regulations: The Federal rules restrict any use of the information to criminally investigate or prosecute any alcohol or drug abuse patient.[facility] the event this information is protected by the Federal Confidentiality of Alcohol and Drug Abuse Patient Records regulations: The Federal rules restrict any use of the information to criminally investigate or prosecute any alcohol or drug abuse patient.[facility] the event this information is protected by the Federal Confidentiality of Alcohol and Drug Abuse Patient Records regulations: The Federal rules restrict any use of the information to criminally investigate or prosecute any alcohol or drug abuse patient.[facility] the event this information is protected by the Federal Confidentiality of Alcohol and Drug Abuse Patient Records regulations: The Federal rules restrict any use of the information to criminally investigate or prosecute any alcohol or drug abuse patient.[facility] the event this information is protected by the Federal Confidentiality of Alcohol and Drug Abuse Patient Records regulations: The Federal rules restrict any use of the information to criminally investigate or prosecute any alcohol or drug abuse patient.[facility] the event this information is protected by the Federal Confidentiality of Alcohol and Drug Abuse Patient Records regulations: The Federal rules restrict any use of the information to criminally investigate or prosecute any alcohol or drug abuse patient.[facility] the event this information is protected by the Federal Confidentiality of Alcohol and Drug Abuse Patient Records regulations: The Federal rules restrict any use of the information to criminally investigate or prosecute any alcohol or drug abuse patient.[facility] the event this information is protected by the Federal Confidentiality of Alcohol and Drug Abuse Patient Records regulations: The Federal rules restrict any use of the information to criminally investigate or prosecute any alcohol or drug abuse patient.[facility] the event this information is protected by the Federal Confidentiality of Alcohol and Drug Abuse Patient Records regulations: The Federal rules restrict any use of the information to criminally investigate or prosecute any alcohol or drug abuse patient.[facility] the event this information is protected by the Federal Confidentiality of Alcohol and Drug Abuse Patient Records regulations: The Federal rules restrict any use of the information to criminally investigate or prosecute any alcohol or drug abuse patient.[facility] the event this information is protected by the Federal Confidentiality of Alcohol and Drug Abuse Patient Records regulations: The Federal rules restrict any use of the information to criminally investigate or prosecute any alcohol or drug abuse patient.[facility] the event this information is protected by the Federal Confidentiality of Alcohol and Drug Abuse Patient Records regulations: The Federal rules restrict any use of the information to criminally investigate or prosecute any alcohol or drug abuse patient.[facility] the event this information is protected by the Federal Confidentiality of Alcohol and Drug Abuse Patient Records regulations: The Federal rules restrict any use of the information to criminally investigate or prosecute any alcohol or drug abuse patient.[facility] the event this information is protected by the Federal Confidentiality of Alcohol and Drug Abuse Patient Records regulations: The Federal rules restrict any use of the information to criminally investigate or prosecute any alcohol or drug abuse patient.[facility] the event this information is protected by the Federal Confidentiality of Alcohol and Drug Abuse Patient Records regulations: The Federal rules restrict any use of the information to criminally investigate or prosecute any alcohol or drug abuse patient.[facility] the event this information is protected by the Federal Confidentiality of Alcohol and Drug Abuse Patient Records regulations: The Federal rules restrict any use of the information to criminally investigate or prosecute any alcohol or drug abuse patient.[facility] the event this information is protected by the Federal Confidentiality of Alcohol and Drug Abuse Patient Records regulations: The Federal rules restrict any use of the information to criminally investigate or prosecute any alcohol or drug abuse patient.[facility]In the event this information is protected by the Federal Confidentiality of Alcohol and Drug Abuse Patient Records regulations: The Federal rules restrict any use of the information to criminally investigate or prosecute any alcohol or drug abuse patient.[facility] the event this information is protected by the Federal Confidentiality of Alcohol and Drug Abuse Patient Records regulations: The Federal rules restrict any use of the information to criminally investigate or prosecute any alcohol or drug abuse patient.[facility] the event this information is protected by the Federal Confidentiality of Alcohol and Drug Abuse Patient Records regulations: The Federal rules restrict any use of the information to criminally investigate or prosecute any alcohol or drug abuse patient.[facility] the event this information is protected by the Federal Confidentiality of Alcohol and Drug Abuse Patient Records regulations: The Federal rules restrict any use of the information to criminally investigate or prosecute any alcohol or drug abuse patient.[facility] the event this information is protected by the Federal Confidentiality of Alcohol and Drug Abuse Patient Records regulations: The Federal rules restrict any use of the information to criminally investigate or prosecute any alcohol or drug abuse patient.[facility]In the event this information is protected by the Federal Confidentiality of Alcohol and Drug Abuse Patient Records regulations: The Federal rules restrict any use of the information to criminally investigate or prosecute any alcohol or drug abuse patient.[facility] the event this information is protected by the Federal Confidentiality of Alcohol and Drug Abuse Patient Records regulations: The Federal rules restrict any use of the information to criminally investigate or prosecute any alcohol or drug abuse patient.[facility] the event this information is protected by the Federal Confidentiality of Alcohol and Drug Abuse Patient Records regulations: The Federal rules restrict any use of the information to criminally investigate or prosecute any alcohol or drug abuse patient.[facility] the event this information is protected by the Federal Confidentiality of Alcohol and Drug Abuse Patient Records regulations: The Federal rules restrict any use of the information to criminally investigate or prosecute any alcohol or drug abuse patient.[facility] the event this information is protected by the Federal Confidentiality of Alcohol and Drug Abuse Patient Records regulations: The Federal rules restrict any use of the information to criminally investigate or prosecute any alcohol or drug abuse patient.[facility]In the event this information is protected by the Federal Confidentiality of Alcohol and Drug Abuse Patient Records regulations: The Federal rules restrict any use of the information to criminally investigate or prosecute any alcohol or drug abuse patient.[facility]In the event this information is protected by the Federal Confidentiality of Alcohol and Drug Abuse Patient Records regulations: The Federal rules restrict any use of the information to criminally investigate or prosecute any alcohol or drug abuse patient.[facility]In the event this information is protected by the Federal Confidentiality of Alcohol and Drug Abuse Patient Records regulations: The Federal rules restrict any use of the information to criminally investigate or prosecute any alcohol or drug abuse patient.[facility] the event this information is protected by the Federal Confidentiality of Alcohol and Drug Abuse Patient Records regulations: The Federal rules restrict any use of the information to criminally investigate or prosecute any alcohol or drug abuse patient.[facility]In the event this information is protected by the Federal Confidentiality of Alcohol and Drug Abuse Patient Records regulations: The Federal rules restrict any use of the information to criminally investigate or prosecute any alcohol or drug abuse patient.[facility] the event this information is protected by the Federal Confidentiality of Alcohol and Drug Abuse Patient Records regulations: The Federal rules restrict any use of the information to criminally investigate or prosecute any alcohol or drug abuse patient.[facility]In the event this information is protected by the Federal Confidentiality of Alcohol and Drug Abuse Patient Records regulations: The Federal rules restrict any use of the information to criminally investigate or prosecute any alcohol or drug abuse patient.[facility]In the event this information is protected by the Federal Confidentiality of Alcohol and Drug Abuse Patient Records regulations: The Federal rules restrict any use of the information to criminally investigate or prosecute any alcohol or drug abuse patient.[facility] HospitalIn the event this information is protected by the Federal Confidentiality of Alcohol and Drug Abuse Patient Records regulations: The Federal rules restrict any use of the information to criminally investigate or prosecute any alcohol or drug abuse patient.[facility] HospitalIn the event this information is protected by the Federal Confidentiality of Alcohol and Drug Abuse Patient Records regulations: The Federal rules restrict any use of the information to criminally investigate or prosecute any alcohol or drug abuse patient.[facility] HospitalIn the event this information is protected by the Federal Confidentiality of Alcohol and Drug Abuse Patient Records regulations: The Federal rules restrict any use of the information to criminally investigate or prosecute any alcohol or drug abuse patient.[facility] HospitalIn the event this information is protected by the Federal Confidentiality of Alcohol and Drug Abuse Patient Records regulations: The Federal rules restrict any use of the information to criminally investigate or prosecute any alcohol or drug abuse patient.[facility] HospitalIn the event this information is protected by the Federal Confidentiality of Alcohol and Drug Abuse Patient Records regulations: The Federal rules restrict any use of the information to criminally investigate or prosecute any alcohol or drug abuse patient.[facility] HospitalIn the event this information is protected by the Federal Confidentiality of Alcohol and Drug Abuse Patient Records regulations: The Federal rules restrict any use of the information to criminally investigate or prosecute any alcohol or drug abuse patient.[facility] HospitalIn the event this information is protected by the Federal Confidentiality of Alcohol and Drug Abuse Patient Records regulations: The Federal rules restrict any use of the information to criminally investigate or prosecute any alcohol or drug abuse patient.[facility] HospitalIn the event this information is protected by the Federal Confidentiality of Alcohol and Drug Abuse Patient Records regulations: The Federal rules restrict any use of the information to criminally investigate or prosecute any alcohol or drug abuse patient.[facility] HospitalIn the event this information is protected by the Federal Confidentiality of Alcohol and Drug Abuse Patient Records regulations: The Federal rules restrict any use of the information to criminally investigate or prosecute any alcohol or drug abuse patient.[facility] HospitalIn the event this information is protected by the Federal Confidentiality of Alcohol and Drug Abuse Patient Records regulations: The Federal rules restrict any use of the information to criminally investigate or prosecute any alcohol or drug abuse patient.[facility] HospitalIn the event this information is protected by the Federal Confidentiality of Alcohol and Drug Abuse Patient Records regulations: The Federal rules restrict any use of the information to criminally investigate or prosecute any alcohol or drug abuse patient.[facility] HospitalIn the event this information is protected by the Federal Confidentiality of Alcohol and Drug Abuse Patient Records regulations: The Federal rules restrict any use of the information to criminally investigate or prosecute any alcohol or drug abuse patient.[facility] HospitalIn the event this information is protected by the Federal Confidentiality of Alcohol and Drug Abuse Patient Records regulations: The Federal rules restrict any use of the information to criminally investigate or prosecute any alcohol or drug abuse patient.[facility] HospitalIn the event this information is protected by the Federal Confidentiality of Alcohol and Drug Abuse Patient Records regulations: The Federal rules restrict any use of the information to criminally investigate or prosecute any alcohol or drug abuse patient.[facility] HospitalIn the event this information is protected by the Federal Confidentiality of Alcohol and Drug Abuse Patient Records regulations: The Federal rules restrict any use of the information to criminally investigate or prosecute any alcohol or drug abuse patient.[facility] HospitalIn the event this information is protected by the Federal Confidentiality of Alcohol and Drug Abuse Patient Records regulations: The Federal rules restrict any use of the information to criminally investigate or prosecute any alcohol or drug abuse patient.[facility] HospitalIn the event this information is protected by the Federal Confidentiality of Alcohol and Drug Abuse Patient Records regulations: The Federal rules restrict any use of the information to criminally investigate or prosecute any alcohol or drug abuse patient.[facility] HospitalIn the event this information is protected by the Federal Confidentiality of Alcohol and Drug Abuse Patient Records regulations: The Federal rules restrict any use of the information to criminally investigate or prosecute any alcohol or drug abuse patient.[facility] Reason for Visit (unrecogniz ed section and content) Reason Onset Date Comments Refill Request 06/13/2021 Reason Comments Consult Specialty Diagnoses / Procedures Referred By Contac t Referred To Contact Cardiology Diagnoses Coronary artery calcification Aortic valve calcification Procedures CONSULT TO CARDIOLOGY OFFICE/OUTPATIENT [facility] 60-74 MINUTES Lorenza Vo, FAMILY PARTNER.MANAGER LEASING [address] [place] [address] Referral ID Status Reason Start Date Expiration Date V isits Requested Visits Authorized [id number] Closed PCP Requested Referral 04/10/2021 04/10/2022 1 [...] COMPUTED TOMOGRAPHY THORAX W/O BALAT Becky Matta, FAMILY PARTNER.MANAGER LEASING [address] [place] [address] Ct Imaging Referral ID Status Reason Start Date Expiration Date V isits Requested Visits Authorized [id number] Closed Auto-Generate d Referral 12/14/2021 01/13/2023 1 [...] THORAX LW DOSE LNG CA Gris Turner, FAMILY PARTNER.MANAGER LEASING [id number] Imaging [place] [address] Referral ID Status Reason Start Date Expiration Date V isits Requested Visits Authorized [id number] Closed Auto-Generate d Referral 12/19/2022 01/18/2024 1 1 Reason Comments Recheck 2 week follow up Reason Comments Results Reason Comments Recheck 1 month follow up Reason Comments New Patient Specialty Diagnoses / Procedures Referred By Contac t Referred To Contact Vascular Surgery Diagnoses PVD (peripheral vascular disease) (HCC) Procedures CONSULT TO VASCULAR SURGERY OFFICE/OUTPATIENT NEW HIGH MDM 60 MINUTES Rober Rubio MD [address] [place] [address] Referral ID Status Reason Start Date Expiration Date V isits Requested Visits Authorized [id number] Closed PCP Requested Referral 09/18/2023 09/17/2024 1 1 Reason Comments New Patient [facility]01/24 RSVRight Arm BP [...] DIAGNOSTIC COMPUTED TOMOGRAPHY THORAX W/O Martin Noble, FAMILY PARTNER.MANAGER LEASING [id number] Imaging [place] [address] Referral ID Status Reason Start Date Expiration Date V isits Requested Visits Authorized [id number] Closed Auto-Generate d Referral 08/01/2023 08/30/2024 1 1 Reason Comments COPD Reason Comments 6 Month Exam Reason Onset Date Comments Population Health Navigation Outreach 04/28/2024 [facility] [place] Reason Onset Date Comments Population Health Navigation Outreach 06/28/2024 ACO, High Risk Reason Comments Established Patient Reason Onset Date Comments Population Health Navigation Outreach 08/25/2024 [facility] [place] Care Teams (unrecognized sec tion and content) 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 Start Date End Date Rober Rubio MD [address] [facility] [place] [address] PCP - General Family Practice 12/27/11 Bryson Mariee [facility] [address] [facility] [place] [address] Pharmacist Pharmacy 01/31/21 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 Start Date End Date Rober Rubio MD [address] [facility] [place] [address] PCP - General Family Practice 12/27/11 [facility] [address] [facility] [place] [address] Pharmacist Pharmacy 01/31/21 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 Start Date End Date Rober Rubio MD [address] [facility] [place] [address] PCP - General Family Practice 12/27/11 [facility] [address] [facility] [place] [address] Pharmacist Pharmacy 01/31/21 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 Start Date End Date oRber Rubio MD [address] [facility] [place] [address] PCP - General Family Practice 12/27/11 Bryson Mariee [facility] [address] [facility] [place] [address] Pharmacist Pharmacy 01/31/21 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 Start Date End Date Rober Rubio MD [address] [facility] [place] [address] PCP - General Family Practice 12/27/11 Bryson Mariee, [facility] [address] [facility] [place] [address] Pharmacist Pharmacy 01/31/21 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 Start Date End Date Rober Rubio MD [address] [facility] [place] [address] PCP - General Family Practice 12/27/11 Bryson Mariee, [facility] [address] [facility] [place] [address] Pharmacist Pharmacy 01/31/21 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 Start Date End Date Rober Ruboi MD [address] [facility] [place] [address] PCP - General Family Practice 12/27/11 Bryson Mariee, [facility] [address] [facility] [place] [address] Pharmacist Pharmacy 01/31/21 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 Start Date End Date Rober Rubio MD [address] [facility] [place] [address] PCP - General Family Practice 12/27/11 Bryson Mariee, [facility] [address] [facility] [place] [address] Pharmacist Pharmacy 01/31/21 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 Start Date End Date Rober Rubio MD [address] [facility] [place] [address] PCP - General Family Practice 12/27/11 Bryson Mariee, [facility] [address] [facility] [place] [address] Pharmacist Pharmacy 01/31/21 Rm Lo MD [address] [place] [address] Surgeon General Surgery 08/17/21 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 Start Date End Date Rober Rubio MD [address] [place] [address] PCP - General Family Medicine 12/27/11 [facility] [address] [place] [address] Pharmacist Pharmacy 01/31/21 Rm Lo MD [address] [place] [address] Surgeon General Surgery 08/17/21 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 Start Date End Date Rober Rubio MD [address] [place] [address] PCP - General Family Medicine 12/27/11 [facility] [address] [place] [address] Pharmacist Pharmacy 01/31/21 Rm Lo MD [address] [place] [address] Surgeon General Surgery 08/17/21 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 Start Date End Date Rober Rubio MD [address] [facility] [place] [address] PCP - General Family Medicine 12/27/11 [facility] [address] [place] [address] Pharmacist Pharmacy 01/31/21 Rm Lo MD [address] [place] [address] Surgeon General Surgery 08/17/21 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 Start Date End Date Rober Rubio MD [address] [place] [address] PCP - General Family Medicine 12/27/11 [facility] [address] [facility] [place] [address] Pharmacist Pharmacy 01/31/21 Rm Lo MD [address] [place] [address] Surgeon General Surgery 08/17/21 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 Start Date End Date Rober Rubio MD [address] [facility] [place] [address] PCP - General Family Medicine 12/27/11 [facility] [address] [place] [address] Pharmacist Pharmacy 01/31/21 Rm Lo MD [address] [place] [address] Surgeon General Surgery 08/17/21 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 Start Date End Date Rober Rubio MD [address] [place] [address] PCP - General Family Medicine 12/27/11 [facility] [address] [place] [address] Pharmacist Pharmacy 01/31/21 Rm Lo MD [address] [place] [address] Surgeon General Surgery 08/17/21 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 Start Date End Date Rober Rubio MD [address] [place] [address] PCP - General Family Medicine 12/27/11 [facility] [address] [place] [address] Pharmacist Pharmacy 01/31/21 Rm Lo MD [address] [place] [address] Surgeon General Surgery 08/17/21 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 Start Date End Date Rober Rubio MD [address] [place] [address] PCP - General Family Medicine 12/27/11 [facility] [address] [place] [address] Pharmacist Pharmacy 01/31/21 Rm Lo MD [address] [place] [address] Surgeon General Surgery 08/17/21 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 Start Date End Date Rober Rubio MD [address] [place] [address] PCP - General Family Medicine 12/27/11 [facility] [address] [place] [address] Pharmacist Pharmacy 01/31/21 Rm Lo MD [address] [place] [address] Surgeon General Surgery 08/17/21 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 Start Date End Date Rober Rubio MD [address] [place] [address] PCP - General Family Medicine 12/27/11 [facility] [address] [place] [address] Pharmacist Pharmacy 01/31/21 Rm Lo MD [address] [place] [address] Surgeon General Surgery 08/17/21 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 Start Date End Date Rober Rubio MD [address] [place] [address] PCP - General Family Medicine 12/27/11 [facility] [address] [place] [address] Pharmacist Pharmacy 01/31/21 Rm Lo MD [address] [place] [address] Surgeon General Surgery 08/17/21 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 Start Date End Date Rober Rubio MD [address] [place] [address] PCP - General Family Medicine 12/27/11 Rm Lo MD [address] [place] [address] Surgeon General Surgery 08/17/21 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 Start Date End Date Rober Rubio MD [address] [place] [address] PCP - General Family Medicine 12/27/11 Rm Lo MD [address] [place] [address] Surgeon General Surgery 08/17/21 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 Start Date End Date Rober Rubio MD [address] [place] [address] PCP - General Family Medicine 12/27/11 Rm Lo MD [address] [place] [address] Surgeon General Surgery 08/17/21 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 Start Date End Date Rober Rubio MD [address] [facility] [place] [address] PCP - General Family Medicine 12/27/11 Rm Lo MD [address] [place] [address] Surgeon General Surgery 08/17/21 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 Start Date End Date Rober Rubio MD [address] [place] [address] PCP - General Family Medicine 12/27/11 Rm Lo MD [address] [place] [address] Surgeon General Surgery 08/17/21 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 Start Date End Date Rober Rubio MD [address] [place] [address] PCP - General Family Medicine 12/27/11 Rm Lo MD [address] [place] [address] Surgeon General Surgery 08/17/21 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 Start Date End Date Rober Rubio MD [address] [facility] [place] [address] PCP - General Family Medicine 12/27/11 Rm Lo MD [address] [place] [address] Surgeon General Surgery 08/17/21 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 Start Date End Date Rober Rubio MD [address] [facility] [place] [address] PCP - General Family Medicine 12/27/11 Rm Lo MD [address] [place] [address] Surgeon General Surgery 08/17/21 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 Start Date End Date Rober Rubio MD [address] [facility] [place] [address] PCP - General Family Medicine 12/27/11 Rm Lo MD [address] [place] [address] Surgeon General Surgery 08/17/21 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 Start Date End Date Rober Rubio MD [address] [place] [address] PCP - General Family Medicine 12/27/11 Rm Lo MD [address] [place] [address] Surgeon General Surgery 08/17/21 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 Start Date End Date Rober Rubio MD [address] [facility] [place] [address] PCP - General Family Medicine 12/27/11 Rm Lo MD [address] [place] [address] Surgeon General Surgery 08/17/21 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 Start Date End Date Rober Rubio MD [address] [facility] [place] [address] PCP - General Family Medicine 12/27/11 Rm Lo MD [address] [place] [address] Surgeon General Surgery 08/17/21 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 Start Date End Date Rober Rubio MD [address] [place] [address] PCP - General Family Medicine 12/27/11 Rm Lo MD [address] [place] [address] Surgeon General Surgery 08/17/21 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 Start Date End Date Rober Rubio MD [address] [facility] [place] [address] PCP - General Family Medicine 12/27/11 Rm Lo MD [address] [place] [address] Surgeon General Surgery 08/17/21 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 Start Date End Date Rober Rubio MD [address] [place] [address] PCP - General Family Medicine 12/27/11 Rm Lo MD [address] [place] [address] Surgeon General Surgery 08/17/21 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 Start Date End Date Rober Rubio MD [address] [place] [address] PCP - General Family Medicine 12/27/11 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 Start Date End Date Rober Rubio MD [address] [place] [address] PCP - General Family Medicine 12/27/11 Rm Lo MD [address] [place], [place] [address] Surgeon General Surgery 08/17/21 Team Status: Active Member Role Status Dates Dr. Rober Rubio MD Family Provider Active Dr. Rober Rubio MD Primary Care Provider Active Team Status: Active Member Role Status Dates Dr. Stevo Alcantara DO Emergency Provider Active Dr. Rober Rubio MD Primary Care Provider Active Dr. Deborah Barron MD Admit Provider, Attending Provid er Active 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 Start Date End Date Rober Rubio MD [address] [place] [address] PCP - General Family Medicine 12/27/11 Rm Lo MD [address] [place], [place] [address] Surgeon General Surgery 08/17/21 Lorenza Vo APRN.MANAGER LEASING [address] [facility] [place] [address] [employer] [facility] 01/26/24 Shantell Marroquin APRN.MANAGER LEASING [address] [place] [address] [employer] [facility] 01/26/24 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 Start Date End Date Rober Rubio MD [address] [place] [address] PCP - General Family Medicine 12/27/11 Rm Lo MD [address] [place] [address] Surgeon General Surgery 08/17/21 Lorenza Vo APRN.MANAGER LEASING [address] [place] [address] [facility] 01/26/24 Shantell Marroquin APRN.MANAGER LEASING [address] [place] [address] [facility] 01/26/24 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 Start Date End Date Rober Rubio MD [address] [place] [address] PCP - General Family Medicine 12/27/11 Rm Lo MD [address] [place] [address] Surgeon General Surgery 08/17/21 Lorenza Vo APRN.MANAGER LEASING [address] [place] [address] [facility] 01/26/24 LopezShantell AugustaROSANAN.MANAGER LEASING [address] [place], [place] [address] [facility] 01/26/24 Team Status: Active Member Role [...] Meng Wells MD Other Provider Active Dr. Muarizio Wells , Other Provider Active Dr. Hari Iniguez DO Attending Provider Active 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 Start Date End Date Rober Rubio MD [address] [place] [address] PCP - General Family Medicine 12/27/11 Rm Lo MD [address] [place], [place] [address] Surgeon General Surgery 08/17/21 Lorenza Vo APRN.MANAGER LEASING [address] [place] [address] [facility] 01/26/24 Shantell Marroquin APRN.MANAGER LEASING [address] [place] [address] [employer] [facility] 01/26/24 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 Start Date End Date Rober Rubio MD [address] [place] [address] PCP - General Family Medicine 12/27/11 Rm Lo MD [address] [place] [address] Surgeon General Surgery 08/17/21 Lorenza Vo APRN.MANAGER LEASING [address] [place] [address] [facility] 01/26/24 Shantell Marroquin APRN.MANAGER LEASING [address] [place] [address] [facility] 01/26/24 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 Start Date End Date Rober Rubio MD [address] [place] [address] PCP - General Family Medicine 12/27/11 Rm Lo MD [address] [place] [address] Surgeon General Surgery 08/17/21 Lorenza Vo APRN.MANAGER LEASING [address] [place] [address] [employer] [facility] 01/26/24 Shantell Marroquin APRN.MANAGER LEASING [address] [place] [address] [employer] [facility] 01/26/24 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 Start Date End Date Rober Ruboi MD [address] [place] [address] PCP - General Family Medicine 12/27/11 Rm Lo MD [address] [place] [address] Surgeon General Surgery 08/17/21 Lorenza Vo APRN.MANAGER LEASING [address] [place] [address] [facility] 01/26/24 Shantell Marroquin APRN.MANAGER LEASING [address] [place] [address] [facility] 01/26/24 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 Start Date End Date Rober Rubio MD [address] [place] [address] PCP - General Family Medicine 12/27/11 Rm Lo MD [address] [place] [address] Surgeon General Surgery 08/17/21 Lorenza Vo APRN.MANAGER LEASING [address] [place] [address] [facility] 01/26/24 Shantell Marroqiun APRN.MANAGER LEASING [address] [facility] [place] [address] [facility] 01/26/24 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 Start Date End Date Rober Rubio MD [address] [facility] [place] [address] PCP - General Family Medicine 12/27/11 Rm Lo MD [address] [place] [address] Surgeon General Surgery 08/17/21 Lorenza Vo APRN.MANAGER LEASING [address] [facility] [place] [address] [facility] 01/26/24 Shantell Marroquin APRN.MANAGER LEASING [address] [facility] [place] [address] [facility] 01/26/24 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 Start Date End Date Rober Rubio MD [address] [facility] [place] [address] PCP - General Family Medicine 12/27/11 Rm Lo MD [address] [place] [address] Surgeon General Surgery 08/17/21 Lorenza Vo APRN.MANAGER LEASING [address] [facility] [place] [address] [facility] 01/26/24 Shantell Marroquin APRN.MANAGER LEASING [address] [place] [address] [employer] [facility] 01/26/24 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 Start Date End Date Rober Rubio MD [address] [place] [address] PCP - General Family Medicine 12/27/11 Rm Lo MD [address] [place] [address] Surgeon General Surgery 08/17/21 Lorenza Vo APRN.MANAGER LEASING [address] [facility] [place] [address] [employer] [facility] 01/26/24 Shantell Marroquin APRN.MANAGER LEASING [address] [facility] [place] [address] [employer] [facility] 01/26/24 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 Start Date End Date Rober Rubio MD [address] [facility] [place] [address] PCP - General Family Medicine 12/27/11 Rm Lo MD [address] [place] [address] Surgeon General Surgery 08/17/21 Lorenza Vo APRN.MANAGER LEASING [address] [facility] [place] [address] [employer] [facility] 01/26/24 Shantell Marroquin APRN.MANAGER LEASING [address] [facility] [place] [address] Outside Parts Sales Family [facility] 01/26/24 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 Start Date End Date Rober Rubio MD [address] [place] [address] PCP - General Family Medicine 12/27/11 Rm Lo MD [address] [place] [address] Surgeon General Surgery 08/17/21 Lorenza Vo APRN.MANAGER LEASING [address] [place] [address] [employer] [facility] 01/26/24 Shantell Marroquin APRN.MANAGER LEASING [address] [facility] [place] [address] [employer] [facility] 01/26/24 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 Start Date End Date Rober Rubio MD [address] [place] [address] PCP - General Family Medicine 12/27/11 Rm Lo MD [address] [place] [address] Surgeon General Surgery 08/17/21 Lorenza Vo FAMILY PARTNER.MANAGER LEASING [address] [place] [address] [facility] 01/26/24 Shantell Marroquin APRN.MANAGER LEASING [address] [facility] [place] [address] [employer] [facility] 01/26/24 Team Status: Active Member Role/Relationship Status [...] BE BASED ON THE PRIMARY CLINICAL RECORDS. [employer] [facility]. provides no warranty or guarantee of the accuracy or completeness of information in this document.
[2024-09-21] VITALS (14 sets, daily range): BP systolic 113–138; BP diastolic 52–67; PULSE 84–109; RESP 18–22; TEMP 36.4–36.8; O2SAT 90–95
[2024-09-21 00:07] LABS: Troponin T High Sens 4 HR 19 ng/L (<=14)
[2024-09-21 01:10] LABS: Ferritin 23 ng/mL (22-378); Iron 17 ug/dL (50-170); Iron Binding Capacity,Total 359 ug/dL (250-450); Iron Binding Capacity,Unsat 342 ug/dL (228-428); Vitamin B12 192 pg/mL (180-914)
[2024-09-21 06:50] LABS: Hematocrit 23.6 % (37-47); Hemoglobin 7.1 g/dL (12.0-15.0); Immature Granulocytes Count 0.060 X10^3/uL (0.0-0.0); Mean Corp Hgb Conc 30.1 g/dL (32-36); Mean Corpuscular Volume 85.5 fL (81-99); Mean Platelet Vol. 10.1 fl (6.2-12.0); NRBC Flagged by Analyzer 0.2 % (0-5); Platelet Count 261 K/mm3 (150-450); RBC Distribution Width CV 18.6 % (11.6-14.6); RBC Distribution Width SD 58.0 fl (35.1-43.9); Red Blood Count 2.76 M/mm3 (4.2-5.4); White Blood Count 11.0 K/mm3 (4.4-11.0)
[2024-09-21 07:19] LABS: Anion Gap 13 (5-15); BUN 15 mg/dL (4-19); BUN/Creat Ratio 24.6 RATIO (10-20); Calcium,Total 8.0 mg/dL (7.6-11.0); Carbon Dioxide 23.5 mmol/L (21.0-32.0); Chloride 103 mmol/L (98-108); Estimated Creatinine Clearance 63.83 ml/min (50-250); Glucose 128 mg/dL (70-99); Potassium 3.8 mmol/L (3.3-5.1)
[2024-09-21] MEDS: Budesonide Respules 0.5 MG/2 ML AMPUL.NEB. INHALATION ×2 (07:35→20:02)
--- NOTE | 2024-09-21 08:34 | PN.HOSP_ITS ---
Reason for Visit Chief Complaint: Short of breath Subjective Subjective Patient states she came to the hospital only complaining of shortness of breath and now she has 1 million things wrong with her. I did discuss with her that maybe she just did not know she had a bunch of things going on and maybe they were all contributing to what her initial complaint was. She voiced understanding. We discussed her anemia and the fact that she had hidden blood in her stool. She stated she did not have any abdominal pain/discomfort. She is on anticoagulation with Eliquis and aspirin. I indicated to her we would hold those for now and have GI evaluate her. She has had previous colonoscopy but states it has been a long time ago. Never had EGD. No history of peptic ulcer disease. No history of GERD. Is amenable to scopes if need be. Objective Data Objective Data Vital Signs: Vital Signs Temp Pulse Resp BP Pulse Ox O2 Del Method O2 Flow Rate 97.5 F L 90 20 H 127/57 H 90 Nasal Cannula 4 09/21/24 03:39 09/21/24 07:36 09/21/24 07:36 09/21/24 03:39 09/21/24 07:36 09/21/24 07:36 09/21/24 07:36 Oxygen Flow Rate (L/min) 4 Oxygen Delivery Method Nasal Cannula Weight: 91.2 kg Body Mass Index (BMI) 36.8 Intake & Output: Intake and Output for Last 24 Hours 09/19/24 09/20/24 09/21/24 23:59 23:59 23:59 Intake Total 705 / 705 Balance 705 / 705 Lab / Micro Data 09/21/24 15:29 09/21/24 06:16 Labs: Laboratory Results - last 24 hr 09/20/24 14:45: WBC 16.4 H, RBC 2.73 L, Hgb 6.9 L, Hct 23.9 L, MCV 87.5, MCH 25.3 L, MCHC 28.9 L, RDW Std Deviation 61.2 H, RDW Coeff of Rashaad 19.5 H, Plt Count 309, MPV 9.4, Immature Gran % (Auto) 0.800, Neut % (Auto) 87.1 H, Lymph % (Auto) 3.5 L, Galax % (Auto) 8.2, Eos % (Auto) 0.2, Baso % (Auto) 0.2, Absolute Neuts (auto) 14.3 H, Absolute Lymphs (auto) 0.57 L, Nucleated RBC % 0.2, Sodium 135, Potassium 4.3, Chloride 98, Carbon Dioxide 21.6, Anion Gap 16 H, BUN 15, Creatinine 0.71, Estim Creat Clear Calc 61.72, Est GFR (MDRD) Non-Af 88, B UN/Creatinine Ratio 21.4 H, Glucose 210 H, Calcium 8.2, Troponin T High Sens 29 H 09/20/24 15:15: Lactic Acid 3.0 H* 09/20/24 15:30: Blood Type A POSITIVE, Antibody Screen NEGATIVE, Crossmatch See Detail 09/20/24 16:39: Iron 17 L, TIBC 359, Iron Saturation 5.0 L, Unsaturated IBC 342, Ferritin 23, Troponin T Hi Sens 2 Hr 25 H, NT pro BNP II 568, Vitamin B12 192 09/20/24 21:04: POC Glucose 145 H 09/20/24 22:36: Lactic Acid 1.8, Troponin T Hi Sens 4Hr 19 H 09/21/24 06:10: POC Glucose 129 H 09/21/24 06:16: WBC 11.0, RBC 2.76 L, Hgb 7.1 L, Hct 23.6 L, MCV 85.5, MCH 25.7 L, MCHC 30.1 L, RDW Std Deviation 58.0 H, RDW Coeff of Rashaad 18.6 H, Plt Count 261, MPV 10.1, Immature Gran % (Auto) 0.500, Neut % (Auto) 75.7 H, Lymph % (Auto) 11.5 L, Galax % (Auto) 10.7 H, Eos % (Auto) 1.3, Baso % (Auto) 0.3, A bsolute Neuts (auto) 8.3 H, Absolute Lymphs (auto) 1.27, Nucleated RBC % 0.2, Sodium 139, Potassium 3.8, Chloride 103, Carbon Dioxide 23.5, Anion Gap 13, BUN 15, Creatinine 0.59 L, Estim Creat Clear Calc 63.83, Est GFR (MDRD) Non-Af 94, B UN/Creatinine Ratio 24.6 H, Glucose 128 H, Hemoglobin A1c 6.9 H, Calcium 8.0, TSH 1.800 ABG Data ABG results: ABG 09/20/24 15:37 Specimen Type ART Sample Site R Brach pH 7.48 H Bicarbonate Actual 26.5 H Total CO2 28 Base Excess 3 H O2 Saturation 92 L O2 % 2.0 ABG pCO2 35.6 ABG pO2 59 L O2 Delivery Device Cannula Vent Mode Not entered Radiography Diagnostic Testing: Radiology Impression Chest X-Ray 09/20/24 14:30 IMPRESSION: Airspace opacities in the lower lungs may represent pulmonary edema, CHF or pneumonia. Obliteration of the costophrenic angles consistent with pleural effusions. Reading Location: [facility] Physical Exam Const alert, oriented x3, no apparent distress and well nourished; Negative for average body habitus or healthy appearing Constitutional Narrative: Obese, elderly, white female, sitting up in a chair at the bedside, currently appears comfortable, nontoxic HEENT head/scalp atraumatic and moist oral mucous membranes HEENT Narrative: Mallampati 3, no thrush Head and Scalp: normocephalic Eyes Eyes Narrative: Significant conjunctiva pallor bilaterally, no scleral icterus Neck supple Neck Narrative: Neck is short and thick, trachea is midline Resp normal respiratory effort, no retractions, no use of accessory muscles and No clear to auscultation bilaterally Resp Narrative: Intermittent wheeze right base, crackles noted in left base, currently on supplemental oxygen which is not her baseline but appears comfortable breathing at this time with no significant tachypnea or signs of extremis Auscultation: crackles and wheezes Cardio regular rate, regular rhythm, S1 normal heart sound, S2 normal heart sound, no murmurs, no rub, no gallops and no clicks GI normal to inspection, nondistended, normoactive bowel sounds, soft to palpation and non-tender GI Narrative: Large protuberant abdomen Extremity no clubbing, cyanosis or edema Extremity Narrative: Pedal and radial pulses are 2+ Skin Skin Narrative: Skin is pale Neuro moves all extremities and no focal motor deficits Speech: speech normal Psych Psych Narrative: Affect is slightly flat and mood seems somewhat depressed Assessment & Plan Assessment/Plan (1) Symptomatic anemia: (2) Elevated troponin: (3) Acidosis, lactic: (4) Acute hypoxemic respiratory failure: (5) Community acquired pneumonia: (6) Iron deficiency anemia: (7) GI bleed: (8) Adverse reaction to antithrombotic medication: (9) Leukocytosis: PLAN: Plan Acute hypoxic respiratory failure secondary to pneumonia -Airspace opacities noted on chest x-ray - Patient with hypoxia requiring oxygen at 4 L - BNP was normal - Continue ceftriaxone and azithromycin for now may narrow to ceftriaxone depending on cultures - Blood cultures are pending - Strep pneumo and Legionella antigens are negative - Continue pulmonary toilet - Continue incentive spirometer and Acapella - Profound anemia may be contributing to hypoxia as well Leukocytosis - Suspect related to the above - Has resolved with IV antibiotics - may have a reactive component as well Iron deficiency anemia - IV iron 200 mg daily x 3 days - Will check serial hemoglobin to ensure stability - Hold apixaban and aspirin for now - Guaiac stool was positive - Suspect GI bleed - Hemoglobin in 2022 of 14.6-unclear of acuity of drop with no recent lab here - Will consult GI - Transfusion for precipitous drop or hemoglobin less than 7 Positive guaiac stool - Hold apixaban and aspirin - Start Protonix 40 mg IV push twice daily - BUN/creatinine ratio was not consistent with upper GI bleed - Remote colonoscopy but nothing recently - Consult GI for consideration of scopes Elevated troponin - Mild elevation with downtrend - Suspect demand from anemia and hypoxia -Echocardiogram done today and shows an EF of 70% with stage II diastolic dysfunction but no wall motion abnormality - No further workup at this time Lactic acidosis - Mild and resolved quickly - Suspect related to hypoxia on presentation Legal blindness - Stable DM-2 - Hold metformin and Mounjaro - SSI as ordered - Accu checks as ordered - Cardiac/carb controlled diet - A1c was 6.9 however likely not completely reflective of glycemic control given profound anemia Essential hypertension/hyperlipidemia - Continue lisinopril - Restart home amlodipine - Restart home metoprolol - Continue home statin Asthma - Continue as needed albuterol Obesity - BMI is 36.8 - Complicates treatment, prognosis, outcomes - Recommend weight loss DVT prophylaxis - Start SCDs - Hold apixaban for now CODE STATUS - Full code as verified on admission Charges/Coding Visit Charges Inpatient E&M: 81262 [facility] Hosp L3
[2024-09-21] MEDS: Ceftriaxone 2 GM in 0.9% Normal Saline (50mL MB+) 50 ML IV (09:26)
[2024-09-21 10:07] LABS: Hemoglobin 7.4 g/dL (12.0-15.0)
[2024-09-21] MEDS: Azithromycin 500 MG in 0.9% Normal Saline (250mL Bag) 250 ML 255 MG IV (10:10)
[2024-09-21] MEDS: APIXABAN 5 MG TABLET PO (10:32)
[2024-09-21] MEDS: Aspirin E.C. 81 MG Tablet PO (10:32)
--- NOTE | 2024-09-21 11:36 | CASEMGMT ---
MELINDA PAPPAS Discharge Planning Assessment: Face to Face with patient for initial transition planning/care coordination assessment. MELINDA PAPPAS introduced self and role at [facility], pt alert, sitting up in chair, and answering questions appropriately. Pt voices understanding of MELINDA PAPPAS role and is agreeable to participating in assessment. Care providers, pharmacy, and demographics verified. Admitting dx: Pneumonia PCP: Nikki Specialists: Benitez (pulmonology) [facility]erred [facility]acy: [facility] Insurance: [facility] A/B, AARP Prescription Benefit: yes LNOK: son Nikita Living Arrangements: Pt resides with her son Nikita in a single story home with a ramp to enter. Pt states she is independent with ADLs and some IADLs. Pt's son is able to assist. Pt is legally blind and states she can see enough to navigate her home. Transportation: p's son provides transportation. DME: shower chair, grab bars, hand held shower, comfort height toilet, walker, O2 at hs only (does not recall the provider, may be [facility]). SNF/HHC: pt denies Hx of Pt's goal/plan: Pt wishes to DC home with family support. Will follow for changes in O2 needs. Will continue to monitor and assist with discharge needs as identified. Mariela Jackson RN CM
[2024-09-21] MEDS: Iron Sucrose Complex 200 MG in 0.9% Normal Saline (100mL Bag) 100 ML 220 MG IV (11:39)
--- NOTE | 2024-09-21 14:35 | CHAPLAIN ---
Type of Pastoral Visit _x__ Initial Visit ___ Follow-up Visit ___ On-call Visit ___ General Patient Visit ___ Spiritual Assessment ___ Family Conference ___ Bereavement ___ Rapid Response ___ Code Blue ___ Other (describe below) Pastoral Care Referral From _x__ Patient ___ Family ___ Nurse ___ Physician ___ Active Directory Systems Administrator ___ Skein Bleacher ___ Other (describe below) Sacrament/Intervention _x__ Active listening ___ Anointing ___ Synagogue ___ Bereavement ___ Communion _x__ Christina exploration ___ ___ Life review _x__ Prayer ___ Reconciliation ___ Sacrament of Sick ___ Supportive presence ___ Wedding ___ Other (describe below) Pastoral Comments patient reports on how disappointed she was to have missed Mass on Friday but that in fact this was what made her son bring her to ED because I never miss Mass; pt reports on the par[place] in [place] she wor[place]; pt speaks of her physical condition of being very tired; pt has several questions about spirituality and professional calling in the conversation; pt is offered prayer and she accepts; no other concerns
[2024-09-21 16:12] LABS: Hemoglobin 7.8 g/dL (12.0-15.0)
--- NOTE | 2024-09-21 18:31 | EX.PCM.CON.G ---
HPI Consult Data Date of Consult: 09/21/24 HPI Narrative HPI Narrative: YUE LOPEZ, is a 74-year-old woman with history of hypertension, diabetes, hyperlipidemia, congestive heart failure on Eliquis. She presents because of increased shortness of breath. She was diagnosed with COPD exacerbation. On her workup in the ED she was discovered to have a significant anemia with a hemoglobin of 7.1. Previous hemoglobin that we have documented last year was 14.7. She was also noted be fecal occult positive for blood. [facility] Medical History Legally blind COPD (chronic obstructive pulmonary disease) Obesity Diabetes Hypercholesteremia HTN (hypertension) Pneumonia COVID Home Medications ?Medication ?Instructions ?Recorded ?Last Taken ?Type albuterol sulfate 90 mcg/actuation 2 puff inhalation Q4H PRN PRN 03/08/20 Unknown History aerosol inhaler Wheezing amlodipine 10 mg tablet 10 mg PO DAILY BP 03/08/20 09/20/24 History aspirin 81 mg tablet,delayed 81 mg PO DAILY@0800 dr ordered 03/08/20 09/20/24 History release atorvastatin 40 mg tablet 80 mg PO QHS cholestreol 03/08/20 09/19/24 History lisinopril 40 mg tablet 20 mg PO DAILY BP 03/08/20 09/20/24 History metformin 500 mg tablet 500 mg PO DAILY diabetes 01/31/23 09/20/24 History apixaban 5 mg tablet (Eliquis) 5 mg PO BID blood thinner #60 tabs 02/05/23 09/20/24 Rx metoprolol tartrate 50 mg tablet 50 mg PO BID BP #60 tabs 02/05/23 Unknown Rx ergocalciferol (vitamin D2) 1,250 1,[address] ordered 09/20/24 09/18/24 History mcg (50,000 unit) capsule fluticasone fur. 100 mcg-umeclid 1 inh inhalation DAILY breathing 09/20/24 09/20/24 History 62.5 mcg-vilant 25 mcg inhalat.powder (Trelegy Ellipta) tirzepatide 2.5 mg/0.5 mL 2.5 mg subcut QWEEK weight 09/20/24 09/17/24 History subcutaneous pen injector (Mounjaro) vitamins A,C,C-qshm-moglxa 2,148 1 tab PO BID eyes 09/20/24 09/20/24 History mcg-113 mg-45 mg-17.4 mg tablet (PreserVision AREDS) Allergy/AdvReac Type Severity Reaction Status Date / Time venom-honey bee Allergy Severe Swelling Verified 09/20/24 14:07 codeine Allergy Itching Verified 09/20/24 14:07 Penicillins (PCN) Allergy Itching Verified 09/20/24 14:07 Sulfa (Sulfonamide Allergy Itching Verified 09/20/24 14:07 Antibiotics) Tetanus Vaccines and Toxoid Allergy NEEDS Verified 09/20/24 14:07 FOLLOW-UP Family History Mother Heart failure Father Heart failure Social History household members: family Smoking Status: Former smoker ROS Constitutional Constitutional: Denies fatigue, fever(s), poor appetite, weight gain or weight loss Gastrointestinal Gastrointestinal: Denies belching, bloating, change in bowel habits, change in stool character, chewing difficulty, coffee ground emesis, constipation, cramping, diarrhea, dyspepsia, dysphagia, early satiety, excessive flatus, fecal incontinence, heartburn, hematemesis, hematochezia, hemorrhoids, loose stools, melena, nausea, odynophagia, rectal bleeding, tenesmus, vomiting or weight changes Physical Exam Const alert and no apparent distress Constitutional Narrative: No respiratory distress. No conversational dyspnea. HEENT normocephalic and head/scalp atraumatic Resp Resp Narrative: Bibasilar crackles. No egophony. Cardio regular rate, regular rhythm, S1 normal heart sound and S2 normal heart sound GI normal to inspection, nondistended, normoactive bowel sounds, soft to palpation, non-tender and non-distended Extremity normal to inspection, full ROM and no clubbing, cyanosis or edema Neuro oriented x3, CN's II-XII intact bilaterally, moves all extremities and no focal motor deficits Sensorium / Orientation: awake and alert Psych affect normal Lab / Micro Data 09/21/24 15:29 09/21/24 06:16 Labs: Laboratory Results - last 24 hr 09/20/24 15:30: Crossmatch See Detail 09/20/24 16:39: Iron 17 L, TIBC 359, Iron Saturation 5.0 L, Unsaturated IBC 342, Ferritin 23, NT pro BNP II 568, Vitamin B12 192 09/20/24 21:04: POC Glucose 145 H 09/20/24 22:36: Lactic Acid 1.8, Troponin T Hi Sens 4Hr 19 H 09/21/24 06:10: POC Glucose 129 H 09/21/24 06:16: WBC 11.0, RBC 2.76 L, Hgb 7.1 L, Hct 23.6 L, MCV 85.5, MCH 25.7 L, MCHC 30.1 L, RDW Std Deviation 58.0 H, RDW Coeff of Rashaad 18.6 H, Plt Count 261, MPV 10.1, Immature Gran % (Auto) 0.500, Neut % (Auto) 75.7 H, Lymph % (Auto) 11.5 L, Payette % (Auto) 10.7 H, Eos % (Auto) 1.3, Baso % (Auto) 0.3, Absolute Neuts (auto) 8.3 H, Absolute Lymphs (auto) 1.27, Nucleated RBC % 0.2, Sodium 139, Potassium 3.8, Chloride 103, Carbon Dioxide 23.5, Anion Gap 13, BUN 15, Creatinine 0.59 L, Estim Creat Clear Calc 63.83, Est GFR (MDRD) Non-Af 94, BUN/Creatinine Ratio 24.6 H, Glucose 128 H, Hemoglobin A1c 6.9 H, Calcium 8.0, TSH 1.800 09/21/24 09:44: Hgb 7.4 L 09/21/24 11:38: POC Glucose 255 H 09/21/24 15:29: Hgb 7.8 L 09/21/24 16:46: POC Glucose 177 H Micro: Microbiology 09/21/24 11:31 Stool Stool Occult Blood (SAI) - Final Occult Blood Positive 09/21/24 10:36 Urine, Clean Catch Legionella Antigen - Final 09/21/24 10:36 Urine, Clean Catch Streptococcus pneumoniae Antigen (M - Final Imaging Radiology Impression Echocardiogram 09/20/24 18:32 Interpretation Summary Normal LV size. Left ventricular systolic function is normal. The left ventricular ejection fraction is 70 %. Stage 2 diastolic dysfunction. Contrast injection was performed. The study was technically difficult. Ordering Physician: Hari Iniguez Referring Physician: Joshua Castañeda Performed By: Vish Hills RCS Assessment & Plan Assessment/Plan (1) Influenza A: (2) COPD exacerbation: PLAN: Plan Patient is a 74-year-old female who presented to [facility] ED on with worsening shortness of breath. 1. Suspected COPD exacerbation She is currently getting treatment for COPD exacerbation. 2. History of Afib with RVR on Eliquis 5 mg twice daily and metoprolol twice daily 3. Anemia - She has fecal positive stools in the setting of anticoagulation. She does have a history of chronic alcohol usage Daily alcohol use: Drinks 3 glasses of Chardonnay daily. This could increase her risk of portal hypertension. She should at least undergo an upper endoscopy and possible colonoscopy to evaluate her GI tract. Charges/Coding Visit Charges Inpatient E&M: 70692 Init Hosp L3
[2024-09-21] MEDS: Pantoprazole Sodium 40 MG in 0.9% Normal Saline (100mL MB+) 100 ML 300 MG IV (22:10)
[2024-09-21] MEDS: 0.9% Saline Lock 10 ML Syringe IV (22:11)
[2024-09-21] MEDS: MELATONIN 3 MG TABLET PO (23:42)
[2024-09-22] VITALS (14 sets, daily range): BP systolic 106–126; BP diastolic 50–75; PULSE 93–140; RESP 16–20; TEMP 36.7–37; O2SAT 92–95; BMI 36.8
[2024-09-22 05:35] LABS: Hematocrit 23.9 % (37-47); Hemoglobin 7.1 g/dL (12.0-15.0); Immature Granulocytes Count 0.110 X10^3/uL (0.0-0.0); Mean Corp Hgb Conc 29.7 g/dL (32-36); Mean Corpuscular Volume 87.2 fL (81-99); Mean Platelet Vol. 10.0 fl (6.2-12.0); NRBC Flagged by Analyzer 0.5 % (0-5); Platelet Count 295 K/mm3 (150-450); RBC Distribution Width CV 18.6 % (11.6-14.6); RBC Distribution Width SD 58.8 fl (35.1-43.9); Red Blood Count 2.74 M/mm3 (4.2-5.4); White Blood Count 11.4 K/mm3 (4.4-11.0)
[2024-09-22 05:44] LABS: Partial Thromboplast Time 31.7 Seconds (24.1-36.2); Prothrombin Time (Protime)PT. 16.0 SECONDS (11.7-14.9)
--- NOTE | 2024-09-22 06:01 | EKG12_ITS ---
Test Reason : RHYTHM CHANGE Blood Pressure : */* mmHG Vent. Rate : 117 BPM Atrial Rate : * BPM P-R Int : * ms QRS Dur : 68 ms QT Int : 306 ms P-R-T Axes : * 32 28 degrees QTcB Int : 426 ms Atrial fibrillation with rapid ventricular response Low voltage QRS Abnormal ECG When compared with ECG of 20-Sep-2024 14:15, MANUAL COMPARISON REQUIRED DATA IS UNCONFIRMED Confirmed by XIOMY FOX, ELAINE ([id number]), videotape editor DAVID SIMONS ([id number]) on 09/22/2024 1:00:15 PM Referred By: Joshua Castañeda Confirmed By: ELAINE STAUFFER MD
[2024-09-22 06:05] LABS: AST(SGOT) 35 U/L (<=31); Alanine Aminotransfer ALT/SGPT 40 U/L (<=34); Albumin, Serum 3.5 g/dL (3.4-4.8); Alkaline Phosphatase 114 U/L (35-104); Anion Gap 12 (5-15); BUN 11 mg/dL (4-19); BUN/Creat Ratio 22.6 RATIO (10-20); Calcium,Total 8.4 mg/dL (7.6-11.0); Carbon Dioxide 23.6 mmol/L (21.0-32.0); Chloride 102 mmol/L (98-108); Estimated Creatinine Clearance 63.83 ml/min (50-250); Globulin 2.8 g/dL (2.2-4.2); Glucose 132 mg/dL (70-99); Magnesium 2.7 mg/dL (1.5-2.2); Potassium 4.0 mmol/L (3.3-5.1)
[2024-09-22] MEDS: Budesonide Respules 0.5 MG/2 ML AMPUL.NEB. INHALATION ×2 (06:42→19:00)
[2024-09-22] MEDS: 0.9% Saline Lock 10 ML Syringe IV ×2 (07:00→08:47)
[2024-09-22] MEDS: Iron Sucrose Complex 200 MG in 0.9% Normal Saline (100mL Bag) 100 ML 220 MG IV (08:47)
[2024-09-22] MEDS: Pantoprazole Sodium 40 MG in 0.9% Normal Saline (100mL MB+) 100 ML 300 MG IV ×2 (09:08→20:08)
[2024-09-22] MEDS: Ceftriaxone 2 GM in 0.9% Normal Saline (50mL MB+) 50 ML IV (09:44)
[2024-09-22] MEDS: Azithromycin 500 MG in 0.9% Normal Saline (250mL Bag) 250 ML 255 MG IV (10:29)
[2024-09-22 13:08] LABS: Folate, Hemolysate Test 350.0 ng/mL (Not Estab.); Folate, RBC (Hct) Test 26.6 % (34.0-46.6); Folates, RBC Test 1316 ng/mL (>498)
--- NOTE | 2024-09-22 16:35 | PN_ITS ---
Subjective Subjective Patient seen and examined with her nurse by her bedside. She had no active complaitns. She was due for EGD today but this was canceled due to her respiratory status. Review of systems is otherwise negative. She is on 5L of oxygen by nasal canula. Objective Data Objective Data Vital Signs: Vital Signs Temp Pulse Resp BP Pulse Ox O2 Del Method O2 Flow Rate 98.4 F 93 18 126/68 H 95 Nasal Cannula 5 09/22/24 14:00 09/22/24 15:36 09/22/24 15:36 09/22/24 14:00 09/22/24 14:00 09/22/24 14:00 09/22/24 14:00 Oxygen Flow Rate (L/min) 5 Oxygen Delivery Method Nasal Cannula Weight: 201 lb 0.985 oz Body Mass Index (BMI) 36.8 Intake & Output: Intake and Output for Last 24 Hours 09/20/24 09/21/24 09/22/24 23:59 23:59 23:59 Intake Total 705 / 705 1155 / 1155 515 / 515 Output Total 125 / 125 Balance 705 / 705 1155 / 1155 390 / 390 Lab / Micro Data 09/22/24 05:03 09/22/24 05:03 Labs: Laboratory Results - last 24 hr 09/20/24 22:36: RBC Folate Hemolysate 350.0, RBC Folate 1316, Hematocrit 26.6 L 09/21/24 16:46: POC Glucose 177 H 09/21/24 22:16: POC Glucose 128 H 09/22/24 05:03: WBC 11.4 H, RBC 2.74 L, Hgb 7.1 L, Hct 23.9 L, MCV 87.2, MCH 25.9 L, MCHC 29.7 L, RDW Std Deviation 58.8 H, RDW Coeff of Rashaad 18.6 H, Plt Count 295, MPV 10.0, Immature Gran % (Auto) 1.000 H, Neut % (Auto) 77.5 H, Lymph % (Auto) 8.2 L, [place] % (Auto) 11.4 H, Eos % (Auto) 1.5, Baso % (Auto) 0.4, A bsolute Neuts (auto) 8.8 H, Absolute Lymphs (auto) 0.93, Nucleated RBC % 0.5, PT 16.0 H, INR 1.3, APTT 31.7, Sodium 138, Potassium 4.0, Chloride 102, Carbon Dioxide 23.6, Anion Gap 12, BUN 11, Creatinine 0.46 L, Estim Creat Clear Calc 63.83, Est GFR (MDRD) Non-Af 100, BUN/Creatinine Ratio 22.6 H, Glucose 132 H, Calcium 8.4, Phosphorus 3.7, Magnesium 2.7 H, Total Bilirubin 0.80, AST 35 H, A LT 40 H, Alkaline Phosphatase 114 H, Total Protein 6.3, Albumin 3.5, Globulin 2.8, Albumin/Globulin Ratio 1.2 09/22/24 11:25: POC Glucose 156 H Micro: Microbiology 09/20/24 15:15 Blood Culture (Wb) - Anticubital Left Blood Culture - Preliminary No growth in 48 hours. 09/20/24 13:30 Blood Culture (Wb) - Anticubital Left Blood Culture - Preliminary No growth in 48 hours. 09/21/24 11:31 Stool Stool Occult Blood (SAI) - Final Occult Blood Positive 09/21/24 10:36 Urine, Clean Catch Legionella Antigen - Final 09/21/24 10:36 Urine, Clean Catch Streptococcus pneumoniae Antigen (M - Final Physical Exam Const alert, oriented x3 and no apparent distress Constitutional Narrative: Class II obesity, with BMI of 36.8 General Appearance: cooperative HEENT normocephalic, head/scalp atraumatic, moist oral mucous membranes and oropharynx normal Eyes EOMs intact bilaterally Neck no lymphadenopathy and supple Lymph Lymphatic: no lymphadenopathy noted Resp Resp Narrative: moderately diminished breath sounds bibasally, no wheezes, few crackles bibasally. On 5L of oxygen by nasal canula Cardio regular rate, regular rhythm, S1 normal heart sound, S2 normal heart sound and no murmurs GI normal to inspection, nondistended, normoactive bowel sounds, soft to palpation and non-tender Extremity normal capillary refill, no clubbing, cyanosis or edema and no calf tenderness General Extremity: no tenderness to palpation of joints or extremities Skin General Skin Exam: no breakdown Neuro no focal motor deficits Motor Exam: strength 5/5 throughout Psych thought process normal and cooperative Appearance: appropriate Assessment & Plan Assessment/Plan (1) Acute hypoxemic respiratory failure: (2) GI bleed: PLAN: Plan #Acute hypoxic respiratory failure due to pneumonia * Currently on 5 L of oxygen. Chest x-ray showed bilateral airspace opacities in the lower lungs which may represent pulmonary edema, CHF or pneumonia and obliteration of the costophrenic angles consistent with pleural effusion. BNP was normal. * On IV ceftriaxone and azithromycin. Urine for strep and Legionella antigens were negative. * 2D echo showed EF of 70% with stage II diastolic dysfunction and no regional wall motion abnormalities noted pulmonary artery systolic pressure 49 mmHg. * She is in cumulative positive balance by 2.25 L though I do not know how accurate this really is as her total output so far has only been 125 mL. I will however go ahead and diurese her with IV Lasix 40 mg twice daily for now to see if this helps with her shortness of breath and if it does not help then we will consult pulmonology. * Titrate oxygen to maintain saturation above 90%. Breathing treatments bronchodilators. * If Lasix does not help with her respiratory status will get CT of the chest. * #Acute anemia * Hemoglobin is 7.1. Stool for occult blood was positive. Aspirin and Eliquis on hold. She was due to have EGD today but this was canceled on account of her hypoxia. * On IV pantoprazole. GI on board. For EGD when respiratory status improves. * Iron profile showed evidence of iron deficiency anemia with iron level of only 17 and iron saturation of only 5%. * #Hypertension: On lisinopril and metoprolol #Type 2 diabetes mellitus: Metformin and Mounjaro on hold. Insulin sliding scale. Accu-Cheks ACHS. A1c was 6.9 but in light of the severe anemia this may not be very accurate. #Hyperlipidemia: Statin #History of asthma: Breathing treatments bronchodilators #DVT prophylaxis: On SCDs. Eliquis held due to anemia. Charges/Coding Visit Charges Inpatient E&M: 84323 Subs Hosp L2
--- NOTE | 2024-09-22 19:03 | PN_ITS ---
Progress Note Patient was not able to have an upper endoscopy today. When she was brought down to endoscopy she was noted to have supraventricular tachycardia and her oxygen requirements were up to 6 L. Physical Exam Const alert, oriented x3 and no apparent distress Constitutional Narrative: Class II obesity, with BMI of 36.8 General Appearance: cooperative HEENT normocephalic, head/scalp atraumatic, moist oral mucous membranes and oropharynx normal Eyes EOMs intact bilaterally Neck no lymphadenopathy and supple Lymph Lymphatic: no lymphadenopathy noted Resp Resp Narrative: moderately diminished breath sounds bibasally, no wheezes, few crackles bibasally. On 5L of oxygen by nasal canula Cardio regular rate, regular rhythm, S1 normal heart sound, S2 normal heart sound and no murmurs GI normal to inspection, nondistended, normoactive bowel sounds, soft to palpation and non-tender Extremity normal capillary refill, no clubbing, cyanosis or edema and no calf tenderness General Extremity: no tenderness to palpation of joints or extremities Skin General Skin Exam: no breakdown Neuro no focal motor deficits Motor Exam: strength 5/5 throughout Psych thought process normal and cooperative Appearance: appropriate Assessment & Plan Assessment/Plan (1) Influenza A: (2) COPD exacerbation: PLAN: Plan Patient is a 74-year-old female who presented to [facility] ED on with worsening shortness of breath. 1. Suspected COPD exacerbation She is currently getting treatment for COPD exacerbation. 2. History of Afib with RVR on Eliquis 5 mg twice daily and metoprolol twice daily 3. Anemia - She has fecal positive stools in the setting of anticoagulation. She does have a history of chronic alcohol usage Daily alcohol use: Drinks 3 glasses of Chardonnay daily. This could increase her risk of portal hypertension. She should at least undergo an upper endoscopy and possible colonoscopy to evaluate her GI tract. 09/22/2024-possible endoscopy tomorrow. N.p.o. past midnight. Visit Charges Inpatient E&M: 35012 [facility] Hosp L3
[2024-09-22] MEDS: Metoprolol(XL)Succ 25 MG Tablet PO (20:07)
[2024-09-22] MEDS: MELATONIN 3 MG TABLET PO (22:33)
[2024-09-23] VITALS (24 sets, daily range): BP systolic 108–142; BP diastolic 50–81; PULSE 84–124; RESP 16–28; TEMP 36.4–36.8; O2SAT 91–97
[2024-09-23 05:12] LABS: Hematocrit 25.6 % (37-47); Hemoglobin 7.5 g/dL (12.0-15.0); Immature Granulocytes Count 0.120 X10^3/uL (0.0-0.0); Mean Corp Hgb Conc 29.3 g/dL (32-36); Mean Corpuscular Volume 88.0 fL (81-99); Mean Platelet Vol. 9.9 fl (6.2-12.0); NRBC Flagged by Analyzer 0.5 % (0-5); Platelet Count 315 K/mm3 (150-450); RBC Distribution Width CV 18.6 % (11.6-14.6); RBC Distribution Width SD 59.2 fl (35.1-43.9); Red Blood Count 2.91 M/mm3 (4.2-5.4); White Blood Count 11.6 K/mm3 (4.4-11.0)
--- NOTE | 2024-09-23 05:55 | EKG12_ITS ---
Test Reason : AM EKG Blood Pressure : */* mmHG Vent. Rate : 118 BPM Atrial Rate : * BPM P-R Int : * ms QRS Dur : 66 ms QT Int : 278 ms P-R-T Axes : * 31 33 degrees QTcB Int : 389 ms Atrial fibrillation with rapid ventricular response Low voltage QRS Nonspecific ST abnormality Abnormal ECG When compared with ECG of 22-Sep-2024 06:06, No significant change was found Confirmed by XIOMY FOX, ELAINE ([id number]), commissioning editor DAVID SIMONS ([id number]) on 09/23/2024 9:30:10 AM Referred By: Joshua Castañeda Confirmed By: ELAINE STAUFFER MD
[2024-09-23 05:57] LABS: Anion Gap 13 (5-15); BUN 12 mg/dL (4-19); BUN/Creat Ratio 21.7 RATIO (10-20); Calcium,Total 8.3 mg/dL (7.6-11.0); Carbon Dioxide 23.0 mmol/L (21.0-32.0); Chloride 101 mmol/L (98-108); Estimated Creatinine Clearance 63.83 ml/min (50-250); Glucose 143 mg/dL (70-99); Potassium 3.8 mmol/L (3.3-5.1)
[2024-09-23] MEDS: 0.9% Saline Lock 10 ML Syringe IV (06:11)
[2024-09-23] MEDS: Budesonide Respules 0.5 MG/2 ML AMPUL.NEB. INHALATION ×2 (07:50→19:40)
--- NOTE | 2024-09-23 08:33 | CT_ITS ---
PROCEDURE: CTA CHEST W/WO CONTRAST 09/23/2024 REASON FOR EXAM: SOB TECHNIQUE: CTA CHEST W/WO CONTRAST Multiplanar Sagittal and Coronal images were obtained. 3D post processing was performed CONTRAST: Isovue 370 VOLUME: 100 mL One or more dose reduction techniques were used (e.g., Automated exposure control, adjustment of the mA and/or kV according to patient size, use of iterative reconstruction technique). RADIATION DOSE SUMMARY: CTDlvol: 20 mGy DLP: 474 mGycm COMPARISON: March 08, 2020 # of known CTs in the past 12 months: 0 # of known Cardiac Nuclear Medicine Studies in the past 12 months: 0 FINDINGS: Thoracic Aorta: No evidence of aortic aneurysm or rupture. Msgyhudr-af-xpyvms atherosclerotic plaque. Heavy plaque at the origin of the left subclavian is at least 50% narrowing. Heart: Normal size. No pericardial effusion. Coronary artery atherosclerosis is present. Pulmonary Vessels: The timing and quality of the contrast bolus is diagnostic. There is no evidence of acute or chronic pulmonary embolus. Hardware: None Lymph nodes: None appear enlarged. Lungs and Airways: Upper lobe predominant centrilobular emphysema. Patchy, mixed interstitial and airspace opacities in the lingula. Subsegmental atelectasis lateral segment right middle lobe and patchy atelectasis in both lower lobes. Pleura: Small volume pleural fluid bilaterally. No pneumothorax. Upper Abdomen: Unremarkable Bones: Mild exaggeration of the thoracic kyphosis. Disc space narrowing, marginal endplate spurring thoracic spine. CT/CTA Chest W/WO Contrast IMPRESSION: 1. No evidence of acute or chronic pulmonary embolus. 2. Klkduayg-jn-psmepy aortic atherosclerosis without aneurysm. Coronary arter y disease. Qdcqjtwi-rc-psgkqo atherosclerosis near the origin of the left subclavian. Correlate with differential pressures. 3. Emphysema. 4. Subsegmental atelectasis right middle lobe and both lower lobes with small volume pleural fluid. Patchy interstitial and airspace opacities in the lingula. Pneumonia should be considered. Reading Location: [id number]
[2024-09-23] MEDS: Pantoprazole Sodium 40 MG in 0.9% Normal Saline (100mL MB+) 100 ML 300 MG IV (09:17)
[2024-09-23] MEDS: Ceftriaxone 2 GM in 0.9% Normal Saline (50mL MB+) 50 ML IV (09:59)
[2024-09-23] MEDS: Iron Sucrose Complex 200 MG in 0.9% Normal Saline (100mL Bag) 100 ML 220 MG IV (11:20)
--- NOTE | 2024-09-23 11:52 | EKG12_ITS ---
Test Reason : RHYTHM CHANGE Blood Pressure : */* mmHG Vent. Rate : 89 BPM Atrial Rate : 89 BPM P-R Int : 134 ms QRS Dur : 70 ms QT Int : 358 ms P-R-T Axes : 0 38 40 degrees QTcB Int : 435 ms Normal sinus rhythm Low voltage QRS Nonspecific ST abnormality Abnormal ECG When compared with ECG of 23-Sep-2024 12:09, MANUAL COMPARISON REQUIRED DATA IS UNCONFIRMED Confirmed by ROSEY JONES ([id number]), commissioning editor DAVID SIMONS ([id number]) on 09/27/2024 7:40:37 AM Referred By: Joshua Castañeda Confirmed By: ROSEY JONES
--- NOTE | 2024-09-23 11:52 | PCM.PROGNOTE ---
Subjective Subjective Patient seen and examined. Patient is on 5 L of oxygen today. EGD was canceled yesterday because of her respiratory status and apparently she was also found to be in SVT in the endoscopy suite. She does have a history of A-fib. Hemoglobin is 7.5 today. She denies any coughing or palpitations, nausea vomiting or any other symptoms. I did start patient on Lasix yesterday but her output so far has been only 925 mL as documented though she has been going to the bathroom on her own so it may not be very accurate. Patient did remain tachycardic overnight. Her heart rate was up in the 110s to 120s today. Her BP was in the 120s systolic this morning but had come down to the 90s systolic later this morning. Objective Data Objective Data Vital Signs: Vital Signs Temp Pulse Resp BP Pulse Ox O2 Del Method O2 Flow Rate 97.5 F L 105 H 20 H 120/73 94 Nasal Cannula 4 09/23/24 10:00 09/23/24 11:05 09/23/24 11:05 09/23/24 10:00 09/23/24 10:00 09/23/24 10:00 09/23/24 10:00 Oxygen Flow Rate (L/min) 4 Oxygen Delivery Method Nasal Cannula Weight: 201 lb 0.985 oz Body Mass Index (BMI) 36.8 Intake & Output: Intake and Output for Last 24 Hours 09/21/24 09/22/24 09/23/24 23:59 23:59 23:59 Intake Total 1155 / 1155 855 / 855 150 / 150 Output Total 125 / 925 800 / 800 Balance 1155 / 1155 730 / -70 -650 / -650 Lab / Micro Data 09/23/24 04:56 09/23/24 04:56 Labs: Laboratory Results - last 24 hr 09/20/24 22:36: RBC Folate Hemolysate 350.0, RBC Folate 1316, Hematocrit 26.6 L 09/22/24 16:51: POC Glucose 168 H 09/22/24 22:21: POC Glucose 146 H 09/23/24 04:56: WBC 11.6 H, RBC 2.91 L, Hgb 7.5 L, Hct 25.6 L, MCV 88.0, MCH 25.8 L, MCHC 29.3 L, RDW Std Deviation 59.2 H, RDW Coeff of Rashaad 18.6 H, Plt Count 315, MPV 9.9, Immature Gran % (Auto) 1.000 H, Neut % (Auto) 74.4 H, Lymph % (Auto) 11.2 L, [place] % (Auto) 10.8 H, Eos % (Auto) 2.2, Baso % (Auto) 0.4, Absolute Neuts (auto) 8.6 H, Absolute Lymphs (auto) 1.29, Nucleated RBC % 0.5, Sodium 137, Potassium 3.8, Chloride 101, Carbon Dioxide 23.0, Anion Gap 13, BUN 12, Creatinine 0.56 L, Estim Creat Clear Calc 63.83, Est GFR (MDRD) Non-Af 95, BUN/Creatinine Ratio 21.7 H, Glucose 143 H, Calcium 8.3 09/23/24 06:07: POC Glucose 138 H 09/23/24 11:24: POC Glucose 158 H Micro: Microbiology 09/20/24 15:15 Blood Culture (Wb) - Anticubital Left Blood Culture - Preliminary No growth in 48 hours. 09/20/24 13:30 Blood Culture (Wb) - Anticubital Left Blood Culture - Preliminary No growth in 48 hours. 09/21/24 11:31 Stool Stool Occult Blood (SAI) - Final Occult Blood Positive 09/21/24 10:36 Urine, Clean Catch Legionella Antigen - Final 09/21/24 10:36 Urine, Clean Catch Streptococcus pneumoniae Antigen (M - Final Radiography Diagnostic Testing: Radiology Impression Chest CTA 09/23/24 08:33 IMPRESSION: 1. No evidence of acute or chronic pulmonary embolus. 2. Xwanjpvv-st-aslawi aortic atherosclerosis without aneurysm. Coronary artery disease. Vbmugjgo-ox-vmaqtv atherosclerosis near the origin of the left subclavian. Correlate with differential pressures. 3. Emphysema. 4. Subsegmental atelectasis right middle lobe and both lower lobes with small volume pleural fluid. Patchy interstitial and airspace opacities in the lingula. Pneumonia should be considered. Reading Location: [facility] Physical Exam Const alert, oriented x3, no apparent distress and well nourished; Negative for average body habitus or healthy appearing Constitutional Narrative: Class II obesity, with BMI of 36.8 General Appearance: cooperative HEENT normocephalic, head/scalp atraumatic, moist oral mucous membranes and oropharynx normal Eyes EOMs intact bilaterally Eyes Narrative: Significant conjunctiva pallor bilaterally, no scleral icterus Neck no lymphadenopathy and supple Neck Narrative: Neck is short and thick, trachea is midline Lymph Lymphatic: no lymphadenopathy noted Resp normal respiratory effort, no retractions, no use of accessory muscles and No clear to auscultation bilaterally Resp Narrative: moderately diminished breath sounds bibasally, no wheezes, few crackles bibasally. On 5L of oxygen by nasal canula Auscultation: crackles and wheezes Cardio regular rate, regular rhythm, S1 normal heart sound, S2 normal heart sound, no murmurs, no rub, no gallops and no clicks GI normal to inspection, nondistended, normoactive bowel sounds, soft to palpation, non-tender and non-distended GI Narrative: Large protuberant abdomen Extremity normal to inspection, full ROM, normal capillary refill, no clubbing, cyanosis or edema and no calf tenderness Extremity Narrative: Pedal and radial pulses are 2+ General Extremity: no tenderness to palpation of joints or extremities Skin Skin Narrative: Skin is pale General Skin Exam: no breakdown Neuro oriented x3, CN's II-XII intact bilaterally, moves all extremities and no focal motor deficits Sensorium / Orientation: awake and alert Speech: speech normal Motor Exam: strength 5/5 throughout Psych thought process normal, cooperative and affect normal Psych Narrative: Affect is slightly flat and mood seems somewhat depressed Appearance: appropriate Assessment & Plan Assessment/Plan (1) Acute hypoxemic respiratory failure: (2) GI bleed: PLAN: Plan #Acute hypoxic respiratory failure due to pneumonia and probable heart failure Currently on 5 L of oxygen. Chest x-ray showed bilateral airspace opacities in the lower lungs which may represent pulmonary edema, CHF or pneumonia and obliteration of the costophrenic angles consistent with pleural effusion. BNP was normal. On IV ceftriaxone and azithromycin. Urine for strep and Legionella antigens were negative. 2D echo showed EF of 70% with stage II diastolic dysfunction and no regional wall motion abnormalities noted pulmonary artery systolic pressure 49 mmHg. She is in cumulative positive balance by 2.25 L though I do not know how accurate this really is as her total output so far has only been 125 mL. I did start her on IV lasix 40mg bid yesterday. Urine output not very accurate so unable to estimate the true fluid balance HR elevated this morning in the 110s-120s. EKG showed afib with RVR. will hold lasix today. Chest CT today showed upper upper lobe predominant centrilobular emphysema and patchy, mixed interstitial and airspace opacities in the lingula and subsegmental atelectasis and lateral segment right middle lobe and patchy atelectasis in both lower lobes and small pleural fluid bilaterally will hold lasix for now consult pulmonology stat on IV solumedrol also Titrate oxygen to maintain saturation above 90%. Breathing treatments bronchodilators. If Lasix does not help with her respiratory status will get CT of the chest. #Afib with RVR Patient's heart rate remains poorly controlled and was in the 110s to 120s this morning. I increased her metoprolol to 50 mg twice daily today. However her blood pressure subsequently came down to the 90s systolic. Heart rate still remains poorly controlled. I was concerned that she may still be bleeding and this may be exacerbating the hypotension and tachycardia. Lasix has been discontinued and I ordered a bolus of IV normal saline x 1 L. Will also give a dose of IV digoxin 0.25 mg x 1. Will consult cardiology as I do think it is imperative to get her heart rate under control by tomorrow so she can have the EGD tomorrow. #Acute anemia Hemoglobin is up to 7.5 from 7.1 yesterday.. Stool for occult blood was positive. Aspirin and Eliquis on hold. She was due to have EGD yesterday but this was canceled on account of her hypoxia. On IV pantoprazole. GI on board. EGD deferred again today because of her respiratory status and poorly controlled heart rate. I am hopeful that with cardiology on board as well as pulmonology will be able to optimize her respiratory status as well as her heart rhythm so she can have this EGD hopefully tomorrow Iron profile showed evidence of iron deficiency anemia with iron level of only 17 and iron saturation of only 5%. #Hypertension: On lisinopril and metoprolol as well as amlodipine. Amlodipine and lisinopril held due to hypotension. Metoprolol increased to 50mg bid due to afib with RVR. #Type 2 diabetes mellitus: Metformin and Mounjaro on hold. Insulin sliding scale. Accu-Cheks ACHS. A1c was 6.9 but in light of the severe anemia this may not be very accurate. #Hyperlipidemia: Statin #History of asthma: Breathing treatments with bronchodilators #DVT prophylaxis: On SCDs. Eliquis held due to anemia. Charges/Coding Visit Charges Inpatient E&M: 26703 Subs Hosp L3
[2024-09-23] MEDS: Azithromycin 500 MG in 0.9% Normal Saline (250mL Bag) 250 ML 255 MG IV (12:10)
--- NOTE | 2024-09-23 13:00 | EX.PCM.CONCC ---
Assessment & Plan Assessment/Plan (1) COPD (chronic obstructive pulmonary disease): PLAN: Plan RECOMMENDATIONS: 1. Wean supplemental oxygen to maintain saturations at or above 90%. 2. Continue scheduled bronchodilators and steroids. 3. Antimicrobial therapy to complete 7 days. 4. Ongoing diuresis as tolerated by hemodynamics and renal function. 5. Encourage incentive spirometer use and mobilize patient as tolerated. 6. Transfuse blood products to maintain hemoglobin at or above 7 g/dL. Continue PPI therapy. 7. Timing for endoscopic evaluation per gastroenterology. IMPRESSIONS: 1. COPD exacerbation with hypoxemia Likely related to underlying pneumonia with possible heart failure with preserved ejection fraction contributing. The patient is already on appropriate medical therapy including antibiotics, bronchodilators, steroids and diuretics. I have nothing new to add from a pulmonary perspective. I would continue to wean her supplemental oxygen as tolerated and continue to encourage incentive spirometer use. Nightly BiPAP therapy may aid in alveolar recruitment, given the patient's body habitus and concern for underlying sleep disordered breathing. In light of the patient's issues with atrial fibrillation, we will change from DuoNebs to scheduled Atrovent aerosols. 2. Atrial fibrillation with RVR Medical management per cardiology recommendations. 3. Anemia with concern for gastrointestinal bleed Gastroenterology is following with tentative plans for endoscopic evaluation, once the patient is medically stabilized. Continue to monitor blood counts and transfuse if hemoglobin drops below 7 g/dL. Continue PPI therapy. 4. History of tobacco dependency in remission/hypertension/hyperlipidemia/diabetes mellitus Complicates care, management, recovery and prognosis. Continue supportive measures as noted above. This note was generated with [employer] dictation software. It may contain incorrect words, spelling, and punctuation that were not noted in checking the note before signing. HPI Consult Data Date of Consult: 09/23/24 HPI Narrative Reason for Consultation: Pneumonia HPI Narrative: The patient is a 74-year-old female, with a history as outlined below, who presented to the emergency department on September 20 with complaints of dyspnea. The patient has a self-reported history of COPD of unclear severity. She is followed on an outpatient basis by Dr. Hoda Marquis of pulmonary medicine at [facility]. She was apparently maintained on a triple therapy inhaler regimen at her baseline. The patient indicated that she does not utilize supplemental oxygen throughout the day, but does require oxygen support nightly. Despite this, she has never been tested for obstructive sleep apnea. She has a remote smoking history, having quit completely in 2010. The patient is legally blind. Her medical history is also significant for diabetes mellitus, hypertension, hyperlipidemia and obesity. The patient was being maintained on Eliquis as an outpatient. On presentation to the emergency department, the patient was documented to be afebrile but was mildly tachycardic and tachypneic. She was initially saturating 84% on room air. Laboratory evaluation revealed a white blood cell count of 16,000. The patient was noted to be anemic with a hemoglobin of 6.9 g/dL. Platelet count was within normal limits. Chemistry profile was unremarkable. Lactate was elevated at 3.0. Troponin was increased to 29. Chest x-ray demonstrated bilateral lower lobe infiltrates. The patient was ultimately admitted to the hospital, where she has been maintained on antimicrobials along with bronchodilators, steroids and Lasix. The patient has had the same supplemental oxygen requirement for the last 48 hours of 4 to 5 L/min. She has been transfused 1 unit of packed red blood cells to date. Her surface echocardiogram revealed evidence of stage II diastolic dysfunction with a pulmonary artery systolic pressure of 49 mmHg. In light of her oxygen requirement, CTA chest was obtained which demonstrated emphysematous changes without any evidence of pulmonary embolism. There was a patchy infiltrate in the lingula with atelectasis involving the right middle lobe and small pleural effusions. COUNT INCLUDES THE [facility] Medical History Legally blind COPD (chronic obstructive pulmonary disease) Obesity Diabetes Hypercholesteremia HTN (hypertension) Pneumonia COVID Home Medications ?Medication ?Instructions ?Recorded ?Last Taken ?Type albuterol sulfate 90 mcg/actuation 2 puff inhalation Q4H PRN PRN 03/08/20 Unknown History aerosol inhaler Wheezing amlodipine 10 mg tablet 10 mg PO DAILY BP 03/08/20 09/20/24 History aspirin 81 mg tablet,delayed 81 mg PO DAILY@0800 dr shah 03/08/20 09/20/24 History release atorvastatin 40 mg tablet 80 mg PO QHS cholestreol 03/08/20 09/19/24 History lisinopril 40 mg tablet 20 mg PO DAILY BP 03/08/20 09/20/24 History metformin 500 mg tablet 500 mg PO DAILY diabetes 01/31/23 09/20/24 History apixaban 5 mg tablet (Eliquis) 5 mg PO BID blood thinner #60 tabs 02/05/23 09/20/24 Rx metoprolol tartrate 50 mg tablet 50 mg PO BID BP #60 tabs 02/05/23 Unknown Rx ergocalciferol (vitamin D2) 1,250 1,[address] sahh 09/20/24 09/18/24 History mcg (50,000 unit) capsule fluticasone fur. 100 mcg-umeclid 1 inh inhalation DAILY breathing 09/20/24 09/20/24 History 62.5 mcg-vilant 25 mcg inhalat.powder (Trelegy Ellipta) tirzepatide 2.5 mg/0.5 mL 2.5 mg subcut QWEEK weight 09/20/24 09/17/24 History subcutaneous pen injector (Mounjaro) vitamins A,C,I-szdn-cgdsdu 2,148 1 tab PO BID eyes 09/20/24 09/20/24 History mcg-113 mg-45 mg-17.4 mg tablet (PreserVision AREDS) Allergy/AdvReac Type Severity Reaction Status Date / Time venom-honey bee Allergy Severe Swelling Verified 09/20/24 14:07 codeine Allergy Itching Verified 09/20/24 14:07 Penicillins (PCN) Allergy Itching Verified 09/20/24 14:07 Sulfa (Sulfonamide Allergy Itching Verified 09/20/24 14:07 Antibiotics) Tetanus Vaccines and Toxoid Allergy NEEDS Verified 09/20/24 14:07 FOLLOW-UP Family History Mother Heart failure Father Heart failure Social History household members: family Smoking Status: Former smoker ROS ROS Narrative 10 systems were reviewed with pertinent positives as noted in the HPI above. Physical Exam Const alert and no apparent distress Constitutional Narrative: Sitting in bedside recliner. General Appearance: cooperative HEENT normocephalic and head/scalp atraumatic Eyes PERRL, EOMs intact bilaterally and conjunctivae normal Neck supple General: trachea midline Chest inspection of chest normal Resp normal respiratory effort and no use of accessory muscles Effort and Inspection: able to speak in complete sentences and actively coughing Auscultation: rales and diminished lung sounds Cardio regular rate and regular rhythm GI normal to inspection, nondistended, normoactive bowel sounds Extremity no clubbing, cyanosis or edema Skin no rashes or lesions noted Neuro CN's II-XII intact bilaterally, moves all extremities and no focal motor deficits Psych cooperative and affect normal Lab / Micro Data 09/23/24 04:56 09/23/24 04:56 Labs: Laboratory Results - last 24 hr 09/20/24 22:36: RBC Folate Hemolysate 350.0, RBC Folate 1316, Hematocrit 26.6 L 09/22/24 16:51: POC Glucose 168 H 09/22/24 22:21: POC Glucose 146 H 09/23/24 04:56: WBC 11.6 H, RBC 2.91 L, Hgb 7.5 L, Hct 25.6 L, MCV 88.0, MCH 25.8 L, MCHC 29.3 L, RDW Std Deviation 59.2 H, RDW Coeff of Rashaad 18.6 H, Plt Count 315, MPV 9.9, Immature Gran % (Auto) 1.000 H, Neut % (Auto) 74.4 H, Lymph % (Auto) 11.2 L, [place] % (Auto) 10.8 H, Eos % (Auto) 2.2, Baso % (Auto) 0.4, Absolute Neuts (auto) 8.6 H, Absolute Lymphs (auto) 1.29, Nucleated RBC % 0.5, Sodium 137, Potassium 3.8, Chloride 101, Carbon Dioxide 23.0, Anion Gap 13, BUN 12, Creatinine 0.56 L, Estim Creat Clear Calc 63.83, Est GFR (MDRD) Non-Af 95, BUN/Creatinine Ratio 21.7 H, Glucose 143 H, Calcium 8.3 09/23/24 06:07: POC Glucose 138 H 09/23/24 11:24: POC Glucose 158 H Micro: Microbiology 09/20/24 15:15 Blood Culture (Wb) - Anticubital Left Blood Culture - Preliminary No growth in 48 hours. 09/20/24 13:30 Blood Culture (Wb) - Anticubital Left Blood Culture - Preliminary No growth in 48 hours. Imaging Radiology Impression Chest CTA 09/23/24 08:33 IMPRESSION: 1. No evidence of acute or chronic pulmonary embolus. 2. Jaaxbbyb-ju-vndhlg aortic atherosclerosis without aneurysm. Coronary artery disease. Ynmfrvnq-wi-ayixli atherosclerosis near the origin of the left subclavian. Correlate with differential pressures. 3. Emphysema. 4. Subsegmental atelectasis right middle lobe and both lower lobes with small volume pleural fluid. Patchy interstitial and airspace opacities in the lingula. Pneumonia should be considered. Reading Location: [id number] Charges/Coding Visit Charges Inpatient E&M: 46881 Init Hosp L2
[2024-09-23] MEDS: 0.9% Normal Saline (1000mL) 1,000 ML 999 ML IV (13:31)
[2024-09-23] MEDS: Digoxin 250 MCG/ML Ampul IV (13:32)
[2024-09-23] MEDS: Amiodarone 150 MG in Dextrose 5%-Water (100mL Bag) 100 ML 600 MG IV BOLUS (15:18)
[2024-09-23] MEDS: Ipratropium 0.5 MG/2.5 ML SOLUTION INHALATION ×2 (15:28→19:40)
--- NOTE | 2024-09-23 15:38 | PCM.CONS.C ---
Assessment & Plan Assessment/Plan (1) Paroxysmal atrial fibrillation: PLAN: She does present with a paroxysm of atrial fibrillation with a rapid ventricular response rate. I suspect the above is worsened by her anemia at this time I would recommend that we try and control her ventricular response with intravenous amiodarone and then perhaps switch her to oral amiodarone later on. Certainly due to her anemia I will hold off on anticoagulation at the present time. We can continue to use beta-blockers as the rate limiting medication in addition to the amiodarone. (2) HTN (hypertension): PLAN: She will continue with her current triple blood pressure therapy and adjust this as appropriate. Her left ventricular ejection fraction is noted to be normal. Thank you for allowing me to participate in the care of your patient. Please don't hesitate to call if any issues arise. HPI Consult Data Date of Consult: 09/23/24 HPI Narrative HPI Narrative: YUE LOPEZ, is a 74 F who developed atrial fibrillation during this hospitalization and whom we are requested to consult on. She had presented to the emergency room on September 20 with complaints of dyspnea. She does have a history of obstructive lung disease on inhaler therapy. She also has a history of diabetes mellitus, hypertension, hyperlipidemia, and obesity. She is legally blind and apparently was on Eliquis therapy as an outpatient presumably for atrial fibrillation. In the emergency room she was noted to be afebrile her hemoglobin was down to 6.9 chest x-ray had demonstrated some infiltrates and she was started on bronchodilators, steroids, and Lasix. She was also transfused with a unit of packed red blood cells. An echocardiogram done demonstrated preserved ejection fraction of 70%, mildly elevated pulmonary pressures at 49 mmHg but no evidence of pulmonary embolism. She was scheduled to have a GI procedure but this was canceled because of her atrial fibrillation with a rapid ventricular response rate cardiology was called to assist in the management due to difficult to control heart rate. [facility] Medical History Legally blind COPD (chronic obstructive pulmonary disease) Obesity Diabetes Hypercholesteremia HTN (hypertension) Pneumonia COVID Home Medications ?Medication ?Instructions ?Recorded ?Last Taken ?Type albuterol sulfate 90 mcg/actuation 2 puff inhalation Q4H PRN PRN 03/08/20 Unknown History aerosol inhaler Wheezing amlodipine 10 mg tablet 10 mg PO DAILY BP 03/08/20 09/20/24 History aspirin 81 mg tablet,delayed 81 mg PO DAILY@0800 dr ordered 03/08/20 09/20/24 History release atorvastatin 40 mg tablet 80 mg PO QHS cholestreol 03/08/20 09/19/24 History lisinopril 40 mg tablet 20 mg PO DAILY BP 03/08/20 09/20/24 History metformin 500 mg tablet 500 mg PO DAILY diabetes 01/31/23 09/20/24 History apixaban 5 mg tablet (Eliquis) 5 mg PO BID blood thinner #60 tabs 02/05/23 09/20/24 Rx metoprolol tartrate 50 mg tablet 50 mg PO BID BP #60 tabs 02/05/23 Unknown Rx ergocalciferol (vitamin D2) 1,250 1,[address] ordered 09/20/24 09/18/24 History mcg (50,000 unit) capsule fluticasone fur. 100 mcg-umeclid 1 inh inhalation DAILY breathing 09/20/24 09/20/24 History 62.5 mcg-vilant 25 mcg inhalat.powder (Trelegy Ellipta) tirzepatide 2.5 mg/0.5 mL 2.5 mg subcut QWEEK weight 09/20/24 09/17/24 History subcutaneous pen injector (Mounmanuelitoro) vitamins A,C,A-xoei-dyrzxw 2,148 1 tab PO BID eyes 09/20/24 09/20/24 History mcg-113 mg-45 mg-17.4 mg tablet (PreserVision AREDS) Allergy/AdvReac Type Severity Reaction Status Date / Time venom-honey bee Allergy Severe Swelling Verified 09/20/24 14:07 codeine Allergy Itching Verified 09/20/24 14:07 Penicillins (PCN) Allergy Itching Verified 09/20/24 14:07 Sulfa (Sulfonamide Allergy Itching Verified 09/20/24 14:07 Antibiotics) Tetanus Vaccines and Toxoid Allergy NEEDS Verified 09/20/24 14:07 FOLLOW-UP Family History Mother Heart failure Father Heart failure Social History household members: family Smoking Status: Former smoker ROS Constitutional Constitutional: Denies fever(s) or weight loss Eyes Eyes: Reports systems reviewed and no addt'l complaints, except as documented ENT HEENT: Reports systems reviewed and no addt'l complaints, except as documented Cardiovascular Cardiovascular: Denies chest pain at rest, chest pain with activity, dyspnea at rest, dyspnea on exertion, edema, palpitations or paroxysmal nocturnal dyspnea Respiratory/Chest Respiratory/Chest: Denies dyspnea on exertion, productive cough, shortness of breath at rest or shortness of breath with exertion Gastrointestinal Gastrointestinal: Denies change in bowel habits, nausea, vomiting or weight changes Genitourinary Genitourinary: Denies difficulty urinating Musculoskeletal Musculoskeletal: Denies joint stiffness or muscle weakness Integumentary Integumentary: Denies lesions Neurologic Neurologic: Denies dizziness or syncope Psychiatric Psychiatric: Denies anxiety Endocrine Endocrinology: Denies excessive sweating or fatigue Hematologic/Lymphatic Hematologic/Lymphatic: Denies anemia Allergic/Immunologic Allergic/Immunologic: Denies seasonal rhinorrhea Physical Exam Const alert, oriented x3 and no apparent distress General Appearance: cooperative HEENT hearing grossly normal bilaterally Head and Scalp: atraumatic Eyes EOMs intact bilaterally Neck General: normal visual inspection Chest inspection of chest normal and palpation of chest normal Resp normal respiratory effort Auscultation: clear to auscultation bilaterally Cardio S1 normal heart sound and S2 normal heart sound Jugular Venous Distention: JVD Rhythm: abnormal rhythm irregularly irregular GI normal to inspection, nondistended, normoactive bowel sounds Extremity normal capillary refill and no pedal edema Peripheral Pulses: Yes pulses 2+ throughout and femoral pulses present Skin no rashes or lesions noted Neuro oriented x3 and CN's II-XII intact bilaterally Psych Appearance: grossly normal and appropriate Risk Stratification Risk Stratification Applicable: No Objective Data Vital Signs: Vital Signs Temp Pulse Resp BP Pulse Ox O2 Del Method O2 Flow Rate 97.5 F L 101 H 20 H 120/60 94 Nasal Cannula 4 09/23/24 10:00 09/23/24 15:29 09/23/24 15:29 09/23/24 15:18 09/23/24 10:00 09/23/24 10:00 09/23/24 10:00 Oxygen Flow Rate (L/min) 4 Oxygen Delivery Method Nasal Cannula Weight: 201 lb 0.985 oz Body Mass Index (BMI) 36.8 Intake & Output: Intake and Output for Last 24 Hours 09/21/24 09/22/24 09/23/24 23:59 23:59 23:59 Intake Total 1155 / 1155 855 / 855 260 / 260 Output Total 125 / 925 800 / 800 Balance 1155 / 1155 730 / -70 -540 / -540 Lab / Micro Data 09/23/24 04:56 09/23/24 04:56 Labs: Laboratory Results - last 24 hr 09/22/24 16:51: POC Glucose 168 H 09/22/24 22:21: POC Glucose 146 H 09/23/24 04:56: WBC 11.6 H, RBC 2.91 L, Hgb 7.5 L, Hct 25.6 L, MCV 88.0, MCH 25.8 L, MCHC 29.3 L, RDW Std Deviation 59.2 H, RDW Coeff of Rashaad 18.6 H, Plt Count 315, MPV 9.9, Immature Gran % (Auto) 1.000 H, Neut % (Auto) 74.4 H, Lymph % (Auto) 11.2 L, [place] % (Auto) 10.8 H, Eos % (Auto) 2.2, Baso % (Auto) 0.4, Absolute Neuts (auto) 8.6 H, Absolute Lymphs (auto) 1.29, Nucleated RBC % 0.5, Sodium 137, Potassium 3.8, Chloride 101, Carbon Dioxide 23.0, Anion Gap 13, BUN 12, Creatinine 0.56 L, Estim Creat Clear Calc 63.83, Est GFR (MDRD) Non-Af 95, BUN/Creatinine Ratio 21.7 H, Glucose 143 H, Calcium 8.3 09/23/24 06:07: POC Glucose 138 H 09/23/24 11:24: POC Glucose 158 H Micro: Microbiology 09/20/24 15:15 Blood Culture (Wb) - Anticubital Left Blood Culture - Preliminary No growth in 48 hours. 09/20/24 13:30 Blood Culture (Wb) - Anticubital Left Blood Culture - Preliminary No growth in 48 hours. Cardiology Labs/Tests 09/23/24 04:56: WBC 11.6 H, RBC 2.91 L, Hgb 7.5 L, Hct 25.6 L, MCV 88.0, MCH 25.8 L, MCHC 29.3 L, Plt Count 315, MPV 9.9, Immature Gran % (Auto) 1.000 H, Neut % (Auto) 74.4 H, Lymph % (Auto) 11.2 L, [place] % (Auto) 10.8 H, Eos % (Auto) 2.2, Baso % (Auto) 0.4, Absolute Neuts (auto) 8.6 H, Nucleated RBC % 0.5, Sodium 137, Potassium 3.8, Chloride 101, Carbon Dioxide 23.0, Anion Gap 13, BUN 12, Creatinine 0.56 L, Est GFR (MDRD) Non-Af 95, BUN/Creatinine Ratio 21.7 H, Glucose 143 H, Calcium 8.3 Rhythm: EKG: ECHO: Stress Test: Cardiac Cath: PCI: CT Surgery: Holter monitor: EPS: PPM: CXR: Chest CT Scan: Radiography Diagnostic Testing: Radiology Impression Chest CTA 09/23/24 08:33 IMPRESSION: 1. No evidence of acute or chronic pulmonary embolus. 2. Eixfufff-oo-eqyqeq aortic atherosclerosis without aneurysm. Coronary artery disease. Gjzsfyky-au-gswnpc atherosclerosis near the origin of the left subclavian. Correlate with differential pressures. 3. Emphysema. 4. Subsegmental atelectasis right middle lobe and both lower lobes with small volume pleural fluid. Patchy interstitial and airspace opacities in the lingula. Pneumonia should be considered. Reading Location: [id number]
[2024-09-23] MEDS: Amiodarone 360 MG in Dextrose 5% Viaflo Bag 192.8 ML 33.3 MG CONT INF (15:45)
--- NOTE | 2024-09-23 15:56 | NURSING ---
This RN is taking over patient care at this time.
--- NOTE | 2024-09-23 19:06 | EKG12_ITS ---
Test Reason : Blood Pressure : */* mmHG Vent. Rate : 111 BPM Atrial Rate : * BPM P-R Int : * ms QRS Dur : 66 ms QT Int : 322 ms P-R-T Axes : * 24 24 degrees QTcB Int : 437 ms Atrial fibrillation with rapid ventricular response Low voltage QRS Nonspecific ST abnormality Abnormal ECG When compared with ECG of 23-Sep-2024 05:23, No significant change was found Confirmed by ROSEY JONES ([id number]), manuscript editor CAROL MURGUIA ([id number]) on 09/27/2024 8:45:22 AM Referred By: Joshua Castañeda Confirmed By: ROSEY JONES
--- NOTE | 2024-09-23 20:11 | PCM.HOSP.N ---
Hospitalist Note Patient converted to SR, EKG obtained and confirmatory.
[2024-09-23] MEDS: Amiodarone 360 MG in Dextrose 5% Viaflo Bag 192.8 ML 16.7 MG CONT INF (21:00)
[2024-09-23] MEDS: MELATONIN 3 MG TABLET PO (22:36)
[2024-09-23] MEDS: Pantoprazole Sodium 40 MG in 0.9% Normal Saline (100mL MB+) 100 ML 330 MG IV (22:39)
[2024-09-24] VITALS (29 sets, daily range): BP systolic 116–172; BP diastolic 51–123; PULSE 70–114; RESP 12–28; TEMP 36.3–37.1; O2SAT 70–98; BMI 36.8
[2024-09-24] MEDS: 0.9% Saline Lock 10 ML Syringe IV ×3 (06:09→13:03)
[2024-09-24] MEDS: Ipratropium 0.5 MG/2.5 ML SOLUTION INHALATION ×3 (07:20→20:27)
[2024-09-24] MEDS: Budesonide Respules 0.5 MG/2 ML AMPUL.NEB. INHALATION ×2 (07:21→20:27)
[2024-09-24 07:32] LABS: Hematocrit 27.1 % (37-47); Hemoglobin 7.9 g/dL (12.0-15.0); Immature Granulocytes Count 0.260 X10^3/uL (0.0-0.0); Mean Corp Hgb Conc 29.2 g/dL (32-36); Mean Corpuscular Volume 89.4 fL (81-99); Mean Platelet Vol. 10.0 fl (6.2-12.0); NRBC Flagged by Analyzer 0.4 % (0-5); Platelet Count 341 K/mm3 (150-450); RBC Distribution Width CV 19.2 % (11.6-14.6); RBC Distribution Width SD 59.0 fl (35.1-43.9); Red Blood Count 3.03 M/mm3 (4.2-5.4); White Blood Count 12.7 K/mm3 (4.4-11.0)
[2024-09-24 08:14] LABS: Anion Gap 10 (5-15); BUN 13 mg/dL (4-19); BUN/Creat Ratio 21.9 RATIO (10-20); Calcium,Total 8.6 mg/dL (7.6-11.0); Carbon Dioxide 24.6 mmol/L (21.0-32.0); Chloride 101 mmol/L (98-108); Estimated Creatinine Clearance 63.83 ml/min (50-250); Glucose 194 mg/dL (70-99); Potassium 4.6 mmol/L (3.3-5.1)
[2024-09-24] MEDS: Iron Sucrose Complex 200 MG in 0.9% Normal Saline (100mL Bag) 100 ML 220 MG IV (09:31)
[2024-09-24] MEDS: Pantoprazole Sodium 40 MG in 0.9% Normal Saline (100mL MB+) 100 ML 330 MG IV ×2 (09:34→22:01)
--- NOTE | 2024-09-24 09:38 | PN.CC_ITS ---
Assessment & Plan Assessment/Plan (1) COPD (chronic obstructive pulmonary disease): PLAN: Plan RECOMMENDATIONS: 1. Wean supplemental oxygen to maintain saturations at or above 90%. 2. Continue scheduled bronchodilators and steroids. 3. Antimicrobial therapy to complete 7 days. 4. Recommend resuming diuretics. 5. Encourage incentive spirometer use and mobilize patient as tolerated. 6. Transfuse blood products to maintain hemoglobin at or above 7 g/dL. Continue PPI therapy. 7. Timing for endoscopic evaluation per gastroenterology. IMPRESSIONS: 1. COPD exacerbation with hypoxemia Likely related to underlying pneumonia with possible heart failure with preserved ejection fraction contributing. The patient is already on appropriate medical therapy including antimicrobials and steroids. I have nothing new to add from a pulmonary perspective. I would continue to wean her supplemental oxygen as tolerated and continue to encourage incentive spirometer use. Nightly BiPAP therapy may aid in alveolar recruitment, given the patient's body habitus and concern for underlying sleep disordered breathing. Continue scheduled Atrovent aerosols. Recommend resuming diuretics and continuing volume optimization, as tolerated by hemodynamics and renal function. 2. Atrial fibrillation with RVR Resolved. Medical management per cardiology recommendations. 3. Anemia with concern for gastrointestinal bleed Gastroenterology is following with tentative plans for endoscopic evaluation, once the patient is medically stabilized. Continue to monitor blood counts and transfuse if hemoglobin drops below 7 g/dL. Continue PPI therapy. 4. History of tobacco dependency in remission/hypertension/hyperlipidemia/diabetes mellitus Complicates care, management, recovery and prognosis. Continue supportive measures as noted above. This note was generated with [employer] dictation software. It may contain incorrect words, spelling, and punctuation that were not noted in checking the note before signing. Subjective Subjective The patient was seen and examined at the bedside this morning. Events from the last 24 hours have been reviewed. The patient is currently afebrile, hemodynamically stable and maintaining appropriate oxygen saturations on 3 L/min via nasal cannula. White blood cell count is mildly elevated at 13,000 with a hemoglobin of 8.0 g/dL. Creatinine is within normal limits. The patient is unclear if there are plans to proceed with endoscopic evaluation today by gastroenterology. Objective Data Objective Data The patient's most recent lab work, culture data and imaging studies have all been personally reviewed. Surface echocardiogram demonstrated stage II diastolic dysfunction with an ejection fraction of 70%. Pulmonary artery systolic pressure was estimated to be 49 mmHg. Vital Signs: Vital Signs Temp Pulse Resp BP Pulse Ox O2 Del Method O2 Flow Rate 98.4 F 89 20 H 139/60 H 96 Nasal Cannula 4 09/24/24 04:00 09/24/24 07:21 09/24/24 07:21 09/24/24 07:00 09/24/24 07:21 09/24/24 08:15 09/24/24 08:15 FiO2 30 09/24/24 01:00 Oxygen Flow Rate (L/min) 4 Oxygen Delivery Method Nasal Cannula Weight: 201 lb 0.985 oz Body Mass Index (BMI) 36.8 Intake & Output: Intake and Output for Last 24 Hours 09/22/24 09/23/24 09/24/24 23:59 23:59 23:59 Intake Total 855 / 855 2426.25 / 2642.95 333.6 / 333.6 Output Total 125 / 925 800 / 1300 500 / 500 Balance 730 / -70 1626.25 / 1342.95 -166.4 / -166.4 Lab / Micro Data Attestation: I reviewed the patient's lab results. 09/24/24 06:47 09/24/24 06:47 Labs: Laboratory Results - last 24 hr 09/23/24 11:24: POC Glucose 158 H 09/23/24 16:23: POC Glucose 159 H 09/23/24 22:50: POC Glucose 251 H 09/24/24 06:05: POC Glucose 178 H 09/24/24 06:47: WBC 12.7 H, RBC 3.03 L, Hgb 7.9 L, Hct 27.1 L, MCV 89.4, MCH 26.1 L, MCHC 29.2 L, RDW Std Deviation 59.0 H, RDW Coeff of Rashaad 19.2 H, Plt Count 341, MPV 10.0, Immature Gran % (Auto) 2.000 H, Neut % (Auto) 89.6 H, Lymph % (Auto) 4.8 L, [place] % (Auto) 3.4, Eos % (Auto) 0.0, Baso % (Auto) 0.2, Absolute Neuts (auto) 11.4 H, Absolute Lymphs (auto) 0.61 L, Nucleated RBC % 0.4, Sodium 136, Potassium 4.6, Chloride 101, Carbon Dioxide 24.6, Anion Gap 10, BUN 13, C reatinine 0.58 L, Estim Creat Clear Calc 63.83, Est GFR (MDRD) Non-Af 94, B UN/Creatinine Ratio 21.9 H, Glucose 194 H, Calcium 8.6 Micro: Microbiology 09/20/24 15:15 Blood Culture (Wb) - Anticubital Left Blood Culture - Preliminary No growth in 48 hours. 09/20/24 13:30 Blood Culture (Wb) - Anticubital Left Blood Culture - Preliminary No growth in 48 hours. 09/21/24 11:31 Stool Stool Occult Blood (SAI) - Final Occult Blood Positive 09/21/24 10:36 Urine, Clean Catch Legionella Antigen - Final 09/21/24 10:36 Urine, Clean Catch Streptococcus pneumoniae Antigen (M - Final Radiography Diagnostic Testing: Radiology Impression Chest CTA 09/23/24 08:33 IMPRESSION: 1. No evidence of acute or chronic pulmonary embolus. 2. Wyrijkkj-aj-umwsvn aortic atherosclerosis without aneurysm. Coronary artery disease. Iaajusji-km-cijwsc atherosclerosis near the origin of the left subclavian. Correlate with differential pressures. 3. Emphysema. 4. Subsegmental atelectasis right middle lobe and both lower lobes with small volume pleural fluid. Patchy interstitial and airspace opacities in the lingula. Pneumonia should be considered. Reading Location: [facility] Physical Exam Const alert, oriented x3 and no apparent distress General Appearance: cooperative HEENT normocephalic, head/scalp atraumatic and moist oral mucous membranes Eyes PERRL, EOMs intact bilaterally and conjunctivae normal Neck supple General: trachea midline Chest inspection of chest normal Resp normal respiratory effort and no use of accessory muscles Effort and Inspection: able to speak in complete sentences Auscultation: diminished lung sounds; Negative for rales, rhonchi or wheezes Cardio regular rate and regular rhythm GI normal to inspection, nondistended, normoactive bowel sounds Extremity no clubbing, cyanosis or edema Skin no rashes or lesions noted Neuro CN's II-XII intact bilaterally, moves all extremities and no focal motor deficits Psych cooperative and affect normal Charges/Coding Visit Charges Inpatient E&M: 05339 Subs Hosp L2
[2024-09-24] MEDS: 0.9% Normal Saline (250mL Bag) 250 ML 15 ML IV (09:45)
[2024-09-24] MEDS: Ceftriaxone 2 GM in 0.9% Normal Saline (50mL MB+) 50 ML IV (10:00)
--- NOTE | 2024-09-24 13:38 | PN_ITS ---
Subjective Subjective Patient seen and examined. She had no active complaints. She has converted to normal sinus rhythm and will be switched to PO amiodarone. Review of systems is otherwise negative. Objective Data Objective Data Vital Signs: Vital Signs Temp Pulse Resp BP Pulse Ox O2 Del Method O2 Flow Rate 98.2 F 90 20 H 155/58 H 94 Nasal Cannula 4 09/24/24 10:00 09/24/24 11:14 09/24/24 11:14 09/24/24 10:00 09/24/24 10:00 09/24/24 10:00 09/24/24 09:30 FiO2 30 09/24/24 01:00 Oxygen Flow Rate (L/min) 4 Oxygen Delivery Method Nasal Cannula Weight: 201 lb 0.985 oz Body Mass Index (BMI) 36.8 Intake & Output: Intake and Output for Last 24 Hours 09/22/24 09/23/24 09/24/24 23:59 23:59 23:59 Intake Total 855 / 855 2426.25 / 2642.95 678.00 / 678.00 Output Total 125 / 925 800 / 1300 500 / 500 Balance 730 / -70 1626.25 / 1342.95 178.00 / 178.00 Lab / Micro Data 09/24/24 06:47 09/24/24 06:47 Labs: Laboratory Results - last 24 hr 09/23/24 16:23: POC Glucose 159 H 09/23/24 22:50: POC Glucose 251 H 09/24/24 06:05: POC Glucose 178 H 09/24/24 06:47: WBC 12.7 H, RBC 3.03 L, Hgb 7.9 L, Hct 27.1 L, MCV 89.4, MCH 26.1 L, MCHC 29.2 L, RDW Std Deviation 59.0 H, RDW Coeff of Rashaad 19.2 H, Plt Count 341, MPV 10.0, Immature Gran % (Auto) 2.000 H, Neut % (Auto) 89.6 H, Lymph % (Auto) 4.8 L, [place] % (Auto) 3.4, Eos % (Auto) 0.0, Baso % (Auto) 0.2, Absolute Neuts (auto) 11.4 H, Absolute Lymphs (auto) 0.61 L, Nucleated RBC % 0.4, Sodium 136, Potassium 4.6, Chloride 101, Carbon Dioxide 24.6, Anion Gap 10, BUN 13, C reatinine 0.58 L, Estim Creat Clear Calc 63.83, Est GFR (MDRD) Non-Af 94, B UN/Creatinine Ratio 21.9 H, Glucose 194 H, Calcium 8.6 09/24/24 11:14: POC Glucose 199 H Micro: Microbiology 09/20/24 15:15 Blood Culture (Wb) - Anticubital Left Blood Culture - Preliminary No growth in 48 hours. 09/20/24 13:30 Blood Culture (Wb) - Anticubital Left Blood Culture - Preliminary No growth in 48 hours. 09/21/24 11:31 Stool Stool Occult Blood (SAI) - Final Occult Blood Positive 09/21/24 10:36 Urine, Clean Catch Legionella Antigen - Final 09/21/24 10:36 Urine, Clean Catch Streptococcus pneumoniae Antigen (M - Final Physical Exam Const alert, oriented x3 and no apparent distress Constitutional Narrative: Class II obesity, with BMI of 36.8 General Appearance: cooperative HEENT normocephalic, head/scalp atraumatic, moist oral mucous membranes and oropharynx normal Eyes EOMs intact bilaterally Eyes Narrative: Significant conjunctiva pallor bilaterally, no scleral icterus Neck no lymphadenopathy and supple Lymph Lymphatic: no lymphadenopathy noted Resp normal respiratory effort, no retractions, no use of accessory muscles and clear to auscultation bilaterally Resp Narrative: moderately diminished breath sounds bibasally, no wheezes, few crackles bibasally. On 4 L of oxygen by nasal canula Auscultation: crackles Cardio regular rate, regular rhythm, S1 normal heart sound, S2 normal heart sound and no murmurs GI normal to inspection, nondistended, normoactive bowel sounds, soft to palpation and non-tender GI Narrative: Obese abdomen Extremity normal to inspection, full ROM, normal capillary refill and no clubbing, cyanosis or edema Extremity Narrative: Pedal and radial pulses are 2+ General Extremity: no tenderness to palpation of joints or extremities Skin General Skin Exam: no breakdown Neuro oriented x3, CN's II-XII intact bilaterally, moves all extremities and no focal motor deficits Sensorium / Orientation: awake and alert Speech: speech normal Motor Exam: strength 5/5 throughout Psych thought process normal, cooperative and affect normal Appearance: appropriate Assessment & Plan Assessment/Plan (1) Acute hypoxemic respiratory failure: (2) GI bleed: PLAN: Plan #Acute hypoxic respiratory failure due to pneumonia and probable heart failure * Currently on 4 L of oxygen. Chest x-ray showed bilateral airspace opacities in the lower lungs which may represent pulmonary edema, CHF or pneumonia and obliteration of the costophrenic angles consistent with pleural effusion. BNP was normal. * On IV ceftriaxone and azithromycin. Urine for strep and Legionella antigens were negative. * 2D echo showed EF of 70% with stage II diastolic dysfunction and no regional wall motion abnormalities noted pulmonary artery systolic pressure 49 mmHg. * Output so far totals 1425 mL though I highly doubt this is accurate. Positive fluid balance by [id number]. Again it is questionable whether this is accurate. * Continue IV Lasix 40 mg twice daily * Chest CT today showed upper upper lobe predominant centrilobular emphysema and patchy, mixed interstitial and airspace opacities in the lingula and subsegmental atelectasis and lateral segment right middle lobe and patchy atelectasis in both lower lobes and small pleural fluid bilaterally * Also on IV Solu-Medrol. Pulmonology on board and recommended continuing antibiotics. * Titrate oxygen to maintain saturation above 90%. Breathing treatments bronchodilators. * * #Afib with RVR * Now converted to normal sinus rhythm. On metoprolol 50 twice daily. She did receive a dose of digoxin yesterday also and she was started on amiodarone drip. She converted to normal sinus rhythm overnight. * Per discussion with cardiology this morning will place on p.o. amiodarone 200 mg daily. * Blood thinners remain on hold due to the acute anemia pending EGD * #Acute anemia * Hemoglobin today is 7.9, up from 7.5 yesterday. Aspirin and Eliquis remain on hold. EGD deferred twice during this admission on account of her respiratory status and poorly controlled heart rate. * GI on board and hopefully patient will have EGD today. * Iron profile showed evidence of iron deficiency anemia with iron level of only 17 and iron saturation of only 5%. * She has received IV iron supplementation * #Hypertension: On lisinopril and metoprolol as well as amlodipine. Amlodipine and lisinopril held due to hypotension. Metoprolol increased to 50mg bid due to afib with RVR. #Type 2 diabetes mellitus: Metformin and Mounjaro on hold. Insulin sliding scale. Accu-Cheks ACHS. A1c was 6.9 but in light of the severe anemia this may not be very accurate. #Hyperlipidemia: Statin #History of asthma: Breathing treatments with bronchodilators #DVT prophylaxis: On SCDs. Eliquis held due to anemia. Charges/Coding Visit Charges Inpatient E&M: 52284 Subs Hosp L2
[2024-09-24] MEDS: Lactated Ringers 1,000 ML 15 ML IV (14:45)
--- NOTE | 2024-09-24 15:33 | PRE.ANES_ITS ---
ASA Classification* ASA Classification ASA Classification: 3 Assessment & Plan Anesthesia* Anesthesia Assessment Anesthesia Assessment: Discussed sedation and/or anesthesia options, risks, benefits, and alternatives with patient/parents/legal guardian/POA. Questions invited. The patient/parents/legal guardian/POA seems to understand and agrees to proceed with anesthesia plan. Reviewed the physical assessment, medical history, allergy history and patient home medications list prior to surgery/procedure/anesthetic and documented any changes. Performed airway and anesthesia risk assessments. Anesthesia Type Anesthesia Type: MAC History Source History Obtained from:: Patient and Chart Anesthesia Focused Assessment* Temperature: 98 F Pulse Rate: 88 Blood Pressure: 146/79 Respiratory Rate: 18 Pulse Ox: 91 Oxygen Delivery Method: Nasal Cannula Oxygen Flow Rate (L/min): 4 Fraction of Inspired Oxygen (FIO2): 32 Airway Assessment Mouth opens: >3 cm Mallampati Score: III Teeth Condition: Caps/Crowns (Patient has several crowns. They are all tight.) and Partial (Patient has a permanent partial on the right upper side.) Neck Range of motion (ROM): Limited ROM (Slight Decrease) Labs Anesthesia Preop lab: CBC WBC 12.7 K/mm3 (4.4-11.0) H 09/24/24 06:47 5 RBC 3.03 M/mm3 (4.2-5.4) L 09/24/24 06:47 09/24/24 Hgb 7.9 g/dL (12.0-15.0) L 09/24/24 06:47 09/24/24 Hct 27.1 % (37-47) L 09/24/24 06:47 09/24/24 Plt Count 341 K/mm3 (150-450) 09/24/24 06:47 09/24/24 CHEMISTRY Potassium 4.6 mmol/L (3.3-5.1) 09/24/24 06:47 09/24/24 Sodium 136 mmol/L (133-145) 09/24/24 06:47 09/24/24 Magnesium 2.7 mg/dL (1.5-2.2) H 09/22/24 05:03 09/22/24 Phosphorus 3.7 mg/dL (2.7-4.5) 09/22/24 05:03 09/22/24 BUN 13 mg/dL (4-19) 09/24/24 06:47 09/24/24 Creatinine 0.58 mg/dL (0.70-1.20) L 09/24/24 06:47 Glucose 194 mg/dL (70-99) H 09/24/24 06:47 09/24/24 POC Glucose 199 mg/dL (74-106) H 09/24/24 11:14 09/24/24 TSH 1.800 uIU/mL (0.300-4.200) 09/21/24 06:16 08/07/11 COAG PT 16.0 SECONDS (11.7-14.9) H 09/22/24 05:03 08/11 Pre-Assessment Diagnosis/Proposed Procedure Planned Operative Procedure(s): Esophagogastroduodenoscopy with possible cautery and/or injection therapy. 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 When Was Last Pacemaker Check QUESTION #4 FULL TEXT: You/Your Family Experience fever (hyperthermia) with Anesthesia Last Oral Intake Last Oral intake: Last Oral Intake NPO since 00:00 09/24/24 14:03 Meds taken in AM with sips of Yes 09/24/24 14:03 water? Meds patient instructed to lopressor, mucinex, 09/24/24 14:03 take am of surgery amiodarone PONV PONV - commissary production supervisor: PONV - commissary production supervisor Female HX of Motion Sickness HX of N/V After Surgery Non-Smoker Duration of Surgery greater than 60 minutes Number of Risk Factors PONV Score Height & Weight Height & Weight: Anesthesia: Height & Weight Height 5 ft 2 in 09/24/24 14:03 Weight: 91.2 kg 09/24/24 14:03 Body Mass Index (BMI) 36.8 09/24/24 14:03 Respiratory Assessment Respiratory Assessment - commissary production supervisor: Respiratory Tract Infection Hx - commissary production supervisor Hx Respiratory Tract Infection Yes 09/22/24 07:06 STOP Sleep Apnea STOP Sleep Apnea - commissary production supervisor: STOP Sleep Apnea - commissary production supervisor Hx Hypertension Yes 09/21/24 14:11 Hx Sleep Apnea Yes 09/20/24 18:33 CPAP Yes 09/20/24 18:33 BIPAP No 09/20/24 18:33 Do you snore loudly (louder than talking or can be heard Do you often feel tired/ fatigued/ sleepy during daytime? Has anyone observed you stop breathing during sleep? STOP Results Positive 09/20/24 18:33 QUESTION #5 FULL TEXT : Do you snore loudly (louder than talking or can be heard through closed doors)? 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 Specify any problems Hx of Preganancy in last 3 N/A 09/20/24 18:33 Months Nurse Filling Out Transfusion [email or web address] 09/20/24 18:33 & Questions: Date: 09/20/24 09/20/24 18:33 Time: 18:43 09/20/24 18:33 Patient unable to answer at this time (ie. confused, unrespo /Reproduction History /Reproductive History - commissary production supervisor: /Reproductive Hx- commissary production supervisor Hx Now No 09/22/24 07:06 Gestational Age (in weeks): EDC: Hx Hx Para Hx Section SAB Active Medications Active Medications: Current Medications Generic Name Dose Route Start Last Admin Trade Name Freq PRN Reason Stop Dose Admin Acetaminophen 650 mg 09/20/24 18:32 Acetaminophen 325 Mg Tablet PO Q6H PRN PRN Pain 1-10 Or Fever>100.7 Amiodarone HCl 200 mg 09/24/24 10:00 09/24/24 10:00 Amiodarone 200 Mg Tablet PO 200 mg DAILY LUIS ARMANDO Administration Apixaban 5 mg 09/20/24 22:00 09/21/24 10:32 Apixaban 5 Mg Tablet PO 5 mg BID LUIS ARMANDO Administration Aspirin 81 mg 09/21/24 08:00 09/21/24 10:32 Aspirin E.C. 81 Mg Tablet PO 81 mg BREAKFAST LUIS ARMANDO Administration Atorvastatin Calcium 80 mg 09/20/24 22:00 09/23/24 22:37 Atorvastatin Calcium 80 Mg Tablet PO 80 mg QHS LUIS ARMANDO Administration Budesonide 0.5 mg 09/20/24 19:45 09/24/24 07:21 Budesonide Respules 0.5 Mg/2 Ml Ampul.Neb. INHALATION 0.5 mg Q12H.RT LUIS ARMANDO Administration Ergocalciferol 1.25 mg 09/20/24 18:32 09/20/24 20:52 Ergocalciferol 1.25 Mg (50, 000 Unit) Capsule PO Not Given QWEEK LUIS ARMANDO Furosemide 40 mg 09/22/24 18:00 09/23/24 09:27 Furosemide 40 Mg/4 Ml Vial IV 40 mg BIDLX LUIS ARMANDO Administration Protocol Glucagon 1 mg 09/20/24 18:32 Glucagon 1 Mg/Ml Syringe IM X1 PRN HYPOGLYCEMIA Protocol Guaifenesin 1,200 mg 09/20/24 22:00 09/24/24 09:59 Guaifenesin 1,200 Mg Tablet PO 1,200 mg BID LUIS ARMANDO Administration Dextrose 250 mls @ 0 mls/hr 09/20/24 18:32 Dextrose 10%-Water IV .Q0M PRN HYPOGLYCEMIA Protocol As Directed Ceftriaxone Sodium 2 gm/ 50 mls @ 100 mls/hr 09/21/24 10:00 09/24/24 10:30 Sodium Chloride IV 09/28/24 10:01 Infused Q24 LUIS ARMANDO Infusion Sodium Chloride 250 mls @ 15 mls/hr 09/20/24 19:51 09/24/24 11:30 IV 0 mls/hr .[id number] PRN Infusion Saline Flush Sodium Chloride 250 mls @ 15 mls/hr 09/20/24 19:51 IV .[id number] PRN Additional IVPB Infusion Pantoprazole Sodium 40 mg/ 100 mls @ 300 mls/hr 09/21/24 22:00 09/24/24 10:50 Sodium Chloride IV Infused Q12 LUIS ARMANDO Infusion Lactated Ringer's 1,000 mls @ 15 mls/hr 09/24/24 14:45 09/24/24 14:45 IV 15 mls/hr .Q48H LUIS ARMANDO Administration Ibuprofen 400 mg 09/21/24 01:41 09/21/24 03:38 Ibuprofen 400 Mg Tablet PO 400 mg Q6H PRN PRN Administration Pain Score 1-10 Insulin Human Lispro 0 unit 09/20/24 22:00 09/24/24 13:01 Insulin Lispro 100 Unit/Ml Insuln.Pen SC Not Given ACHS LUIS ARMANDO Protocol Ipratropium [place] 0.5 mg 09/23/24 13:15 09/24/24 11:14 Ipratropium 0.5 Mg/2.5 Ml Solution INHALATION 0.5 mg Q4HWA.RT LUIS ARMANDO Administration Lisinopril 20 mg 09/21/24 10:00 09/22/24 13:37 Lisinopril 20 Mg Tablet PO 20 mg DAILY LUIS ARMANDO Administration Protocol Melatonin 3 mg 09/21/24 23:00 09/23/24 22:36 Melatonin 3 Mg Tablet PO 3 mg QHS LUIS ARMANDO Administration Methylprednisolone Sodium Succinate 40 mg 09/23/24 11:30 09/24/24 13:03 Methylprednisolone Sod Succ 40 Mg/Ml Vial IV 40 mg Q8 LUIS ARMANDO Administration Metoprolol Tartrate 50 mg 09/23/24 10:00 09/24/24 10:00 Metoprolol Tartrate 50 Mg Tablet PO 50 mg BID LUIS ARMANDO Administration Protocol Ondansetron HCl 4 mg 09/20/24 18:32 Ondansetron 4 Mg/2 Ml Vial IV Q8H PRN PRN NAUSEA/VOMITING Sodium Chloride 10 - 40 ml 09/20/24 19:51 09/24/24 13:03 0.9% Saline Lock 10 Ml Syringe IV 10 ml UD PRN Administration SALINE FLUSH PFSH Medical History Legally blind COPD (chronic obstructive pulmonary disease) Obesity Diabetes Hypercholesteremia HTN (hypertension) Pneumonia COVID Home Medications ?Medication ?Instructions ?Recorded ?Last Taken ?Type albuterol sulfate 90 mcg/actuation 2 puff inhalation Q 4H PRN PRN 03/08/20 Unknown History aerosol inhaler Wheezing amlodipine 10 mg tablet 10 mg PO DAILY BP 03/08/20 0 09/20/24 History aspirin 81 mg tablet,delayed 81 mg PO DAILY@0800 dr charlotte carver 03/08/20 09/20/24 History release atorvastatin 40 mg tablet 80 mg PO QHS cholestreol 09/19/24 History lisinopril 40 mg tablet 20 mg PO DAILY BP 03/08/20 0 09/20/24 History metformin 500 mg tablet 500 mg PO DAILY diabetes 09/20/24 History apixaban 5 mg tablet (Eliquis) 5 mg PO BID blood thinn er #60 tabs 02/05/23 09/20/24 Rx metoprolol tartrate 50 mg tablet 50 mg PO BID BP #60 t abs 02/05/23 Unknown Rx ergocalciferol (vitamin D2) 1,250 1,250 mcg PO QWEEK d r ordered 09/20/24 09/18/24 History mcg (50,000 unit) capsule fluticasone fur. 100 mcg-umeclid 1 inh inhalation DONNA Y breathing 09/20/24 09/20/24 History 62.5 mcg-vilant 25 mcg inhalat.powder (Trelegy Ellipta) tirzepatide 2.5 mg/0.5 mL 2.5 mg subcut QWEEK weight 0 09/20/24 09/17/24 History subcutaneous pen injector (Mounjaro) vitamins A,C,D-vhwn-ozsxgy 2,148 1 tab PO BID eyes 06/1109/20/24 History mcg-113 mg-45 mg-17.4 mg tablet (PreserVision AREDS) Allergy/AdvReac Type Severity Reaction Status Date / Time venom-honey bee Allergy Severe Swelling Verified 09/20/24 14:07 codeine Allergy Itching Verified 09/20/24 14:07 Penicillins (PCN) Allergy Itching Verified 09/20/24 14:07 Sulfa (Sulfonamide Allergy Itching Verified 09/20/24 14:07 Antibiotics) Tetanus Vaccines and Toxoid Allergy NEEDS Verified 09/20/24 14:07 FOLLOW-UP Family History Mother Heart failure Father Heart failure Surgical History (Updated 09/24/24 @ 16:[address] Luis Fernando Rodriguez MD) H/O: hysterectomy S/P tonsillectomy S/P cholecystectomy S/P colonoscopic polypectomy S/P appendectomy Social History household members: family Smoking Status: Former smoker Review of Systems (Anesthesia) ROS Narrative System reviewed and no additional complaints, except as documented.
--- NOTE | 2024-09-24 15:45 | EGD_PTH ---
PATIENT: YUE LOPEZ LOC: [facility] U#:[id number] AGE/SX: 74/F ROOM: [facility] RE09/20/[address]: Dr. Maurizio Wells DO : 1950 BED: 1 DIS: 09/30/2024 SPEC #: [id number] RECD: 09/24/24 17:01 STATUS: ELLY REQ #: [id number] LATANYA: 09/24/24 15:[address]: Steven Mandel DEPT: SURGICAL PATHOLOGY RECD BY: Gurvinder Shelton ENTERED: 09/27/24 10:52 SP TYPE: EGD BIOPSY OTHR DR: MD Dr. Jorge Scott MD Dr. Bruce Arthur, MD Dr. Derek Brown, DO Dr. David P Myers, MD Dr. Eric Jopperi, DO Dr. Edward Matheis, MD Dr. Gautam Baskaran, MD Dr. Yordanos Habtegebriel, MD Dr. Hemant Dand, MD Dr. Jose Ochoa, MD Dr. Justin Wong, MD Dr. Kimber Foust, MD Dr. Kathryn Lee, DO Dr. Lamia Aljundi, MD Dr. Marisa Magana, MD Dr. Nana Yaa Koram, MD Dr. Pritam Ghosh, MD Dr. Pavan Irukulla, MD Dr. Saad Farooqi, MD Dr. Sukhdeep Dhesi, DO Dr. Sujoy Gill, MD Dr. Soleyah Groves, MD Dr. Timothy Fernstrom, MD Dr. Jeff Dunn Dr., MD Dr. William Haden, MD Dr. William Lago, MD Tissues: A - Duodenum, NOS Procedures: Surgery Specimen Level IV HEADER OPERATION: EGD, cauterization PRE-OP DIAGNOSIS: Anemia TISSUE SUBMITTED: A- Duodenum MICROSCOPIC DIAGNOSIS A. Duodenum, biopsy: - Normal villous architecture with Perfecto gland hyperplasia and gastric mucin cell metaplasia, suggestive of peptic injury. - Negative for increased intraepithelial lymphocytes. MICROSCOPIC DESCRIPTION Slides are reviewed. GROSS DESCRIPTION A. Received in fixative is one container labeled with the patient's name and designated Duodenum biopsy. The specimen consists of one irregular fragment of light ayers soft tissue that measures 0.5 cm. The specimen is totally submitted in one cassette. NM 09/27/2024 CPT:90333
--- NOTE | 2024-09-24 15:58 | PCM.PN.BLA ---
Progress Note Patient has been n.p.o. and will undergo an upper endoscopy to evaluate her acute blood loss anemia. Physical Exam Const alert, oriented x3 and no apparent distress General Appearance: cooperative HEENT normocephalic, head/scalp atraumatic and moist oral mucous membranes Eyes PERRL, EOMs intact bilaterally and conjunctivae normal Neck supple General: trachea midline Chest inspection of chest normal Resp normal respiratory effort and no use of accessory muscles Effort and Inspection: able to speak in complete sentences Auscultation: diminished lung sounds; Negative for rales, rhonchi or wheezes Cardio regular rate and regular rhythm GI normal to inspection, nondistended, normoactive bowel sounds Extremity no clubbing, cyanosis or edema Skin no rashes or lesions noted Neuro CN's II-XII intact bilaterally, moves all extremities and no focal motor deficits Psych cooperative and affect normal Assessment & Plan Assessment/Plan (1) Influenza A: (2) COPD exacerbation: PLAN: Plan Patient is a 74-year-old female who presented to [facility] ED on with worsening shortness of breath. 1. Suspected COPD exacerbation She is currently getting treatment for COPD exacerbation. 2. History of Afib with RVR on Eliquis 5 mg twice daily and metoprolol twice daily 3. Anemia - She has fecal positive stools in the setting of anticoagulation. She does have a history of chronic alcohol usage Daily alcohol use: Drinks 3 glasses of Chardonnay daily. This could increase her risk of portal hypertension. She should at least undergo an upper endoscopy and possible colonoscopy to evaluate her GI tract. 09/22/2024-possible endoscopy tomorrow. N.p.o. past midnight. 09/24/2024-patient was explained alternatives, risk and benefits include not withstanding bleeding, fracture, sepsis, perforation, need for emergent . She will have an ASA of 3. Visit Charges Inpatient E&M: 79475 Subs Hosp L3
--- NOTE | 2024-09-24 16:52 | OP.PROVAT_ITS ---
09/24/2024 Rober Jordan Re : Upper GI endoscopy procedure for Emily Landers [place] Jordan This procedure was performed on Tuesday, September 24, 2024. My impressions and recommendations are as follows: Impressions : - Normal esophagus. - Normal stomach. - Non-bleeding duodenal ulcers with no stigmata of bleeding. Biopsied. - Oozing jejunal ulcer with pigmented material Clip was placed. 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 Recommendations : - Return patient to [facility] for ongoing care. - Resume regular diet. - Use sucralfate tablets 1 gram PO QID for 2 weeks. - Continue present medications. My findings are described in the full procedure note, which is enclosed. If I can be of further assistance, please feel free to contact me at . Sincerely, Steven Friend, 09/24/2024 4:51:51 PM This report has been signed electronically.
--- NOTE | 2024-09-24 16:52 | OP.EGD_ITS ---
Patient Name: Emily Landers Procedure Date: 09/24/2024 4:01 PM Date of : 1950 Age: 74 Procedure: Upper GI endoscopy Indications: Acute post hemorrhagic anemia, Unexplained iron deficiency anemia Providers: Steven Mandel DO Medicines: Monitored Anesthesia Care Patient Profile: This is a 74 year old female. Refer to note in patient chart for documentation of history and physical. Patient has symptoms. Complications: No immediate complications. Procedure: Pre-Anesthesia Assessment: - Prior to the procedure, a History and Physical was performed, and patient medications and allergies were reviewed. The patient is competent. The risks and benefits of the procedure and the sedation options and risks were discussed with the patient. All questions were answered and informed consent was obtained. Patient identification and proposed procedure were verified by the physician in the pre-procedure area. Mental Status Examination: alert and oriented. Airway Examination: normal oropharyngeal airway and neck mobility. Respiratory Examination: clear to auscultation. CV Examination: normal. Prophylactic Antibiotics: The patient does not require prophylactic antibiotics. Prior Anticoagulants: The patient has taken no anticoagulant or antiplatelet agents except for NSAID medication. ASA Grade Assessment: II - A patient with mild systemic disease. After reviewing the risks and benefits, the patient was deemed in satisfactory condition to undergo the procedure. The anesthesia plan was to use monitored anesthesia care (MAC). Immediately prior to administration of medications, the patient was re-assessed for adequacy to receive sedatives. The heart rate, respiratory rate, oxygen saturations, blood pressure, adequacy of pulmonary ventilation, and response to care were monitored throughout the procedure. The physical status of the patient was re-assessed after the procedure. After obtaining informed consent, the endoscope was passed under direct vision. Throughout the procedure, the patient's blood pressure, pulse, and oxygen saturations were monitored continuously. The Endoscope was introduced through the mouth, and advanced to the fourth part of the duodenum. Small bowel enteroscopy was deemed necessary. The upper GI endoscopy was accomplished without difficulty. The patient tolerated the procedure well. Scope In: 4:34:56 PM Scope Out: 4:42:48 PM Total Procedure Duration Time 0 hours 7 minutes 52 seconds Findings: The examined esophagus was normal. The entire examined stomach was normal. Many non-bleeding duodenal ulcers with no stigmata of bleeding were found in the duodenal bulb and in the first portion of the duodenum. Biopsies were taken with a cold forceps for histology. Verification of patient identification for the specimen was done. Estimated blood loss was minimal. One oozing cratered ulcer with pigmented material was found in the jejunum. The lesion was 5 mm in largest dimension. For hemostasis, one hemostatic clip was successfully placed. Clip vat skimmer: [place]. There was no bleeding at the end of the procedure. Impression: - Normal esophagus. - Normal stomach. - Non-bleeding duodenal ulcers with no stigmata of bleeding. Biopsied. - Oozing jejunal ulcer with pigmented material Clip was placed. Clip vat skimmer: [place]. Recommendation: - Return patient to hospital [facility] for ongoing care. - Resume regular diet. - Use sucralfate tablets 1 gram PO QID for 2 weeks. - Continue present medications. Procedure Code(s): --- Professional --- 08978, 59, Small intestinal endoscopy, enteroscopy beyond second portion of duodenum, not including ileum; with control of bleeding (eg, injection, bipolar cautery, unipolar cautery, laser, heater probe, stapler, plasma thermoscrew operator) 85124, 51, Small intestinal endoscopy, enteroscopy beyond second portion of duodenum, not including ileum; with biopsy, single or multiple CPT copyright 2021 [employer]. All rights reserved. The codes documented in this report are preliminary and upon in classroom tutor review may be revised to meet current compliance requirements. Steven Mandel DO 09/24/2024 4:51:51 PM This report has been signed electronically. Number of Addenda: 0 Note Initiated On: 09/24/2024 4:01 PM
--- NOTE | 2024-09-24 17:06 | PCM.POST.ANE ---
Anesthesia: Postop Eval I Current Vital Signs Temperature: 97.8 F Pulse Rate: 102 Blood Pressure: 141/61 Respiratory Rate: 26 Pulse Ox: 96 Oxygen Delivery Method: Non-Rebreather Oxygen Flow Rate (L/min): 10 Assessment Airway patent: Yes Spontaneous unlabored respirations: Yes Mental status: Awake nausea: No Vomiting: No Anesthesia Complication: No Fluid Hydration Crystalloid volume administer (ml): 300 Total IV fluid infused: 300 Progress Note Post-operative progress note: Patient requiring nonrebreather O2 to keep O2 saturation in mid 90's. Very dimished breath sounds MARCELLE. Dr. Rodriguez aware, DuoNeb to be given to patient. Anesthesia document: Postop Eval 1 completed: Yes
--- NOTE | 2024-09-24 17:45 | POSTOPAN2_ITS ---
Anesthesia Postop Eval I Sum Postop Eval Completion status Anesthesia document: Postop Eval 1 completed: Yes Anesthesia Postop Eval I Summary Anesthesia Postop Eval I Summary: Anesthesia Postop Eval I: Assessment Summary Airway patent Yes 09/24/24 17:08 NEWSPAPER [email or web address] Spontaneous unlabored Yes 09/24/24 17:08 NEWSPAPER MANAGER.CSIR respirations Mental status Awake 09/24/24 17:08 NEWSPAPER [email or web address] nausea No 09/24/24 17:08 NEWSPAPER MANAGER.CSIR Vomiting No 09/24/24 17:08 NEWSPAPER MANAGER.CSIR Anesthesia Postop Eval I: Fluid Summary Crystalloid volume administer 300 09/24/24 17:08 NEWSPAPER MANAGER.CSIR (ml) Colloids volume administered ( ml) Blood Product volume administered (ml) Total IV fluid infused 300 09/24/24 17:08 NEWSPAPER MANAGER.CSIR Anesthesia Postop Eval I: Summary Notes Anesthesia Complication No 09/24/24 17:08 NEWSPAPER MANAGER.CSIR Anesthesia Complication Comment: Post-operative progress note Patient requiring 09/24/24 17:08 NEWSPAPER MANAGER.CSIR nonrebreather O2 to keep O2 saturation in mid 90's. Very dimished breath sounds MARCELLE. Dr. Rodriguez aware, DuoNeb to be given to patient. Anesthesia: Postop Eval II Evaluation Mental status: Awake and Calm Pain Level: 0 nausea: No Vomiting: No Progress Note Post-operative progress note: Patient is wheezing did diminish with the DuoNeb breathing treatment. With further time she was able to be weaned to 4 L nasal cannula and was discharged back to PCU. Complications Anesthesia Complication: No
--- NOTE | 2024-09-24 17:45 | PCM.POSTANE2 ---
Anesthesia Postop Eval I Sum Postop Eval Completion status Anesthesia document: Postop Eval 1 completed: Yes Anesthesia Postop Eval I Summary Anesthesia Postop Eval I Summary: Anesthesia Postop Eval I: Assessment Summary Airway patent Yes 09/24/24 17:08 ART GALLERY [email or web address] Spontaneous unlabored Yes 09/24/24 17:08 ART GALLERY [email or web address].CSIR respirations Mental status Awake 09/24/24 17:08 ART GALLERY [email or web address] nausea No 09/24/24 17:08 ART GALLERY [email or web address].CSIR Vomiting No 09/24/24 17:08 ART GALLERY [email or web address].CSIR Anesthesia Postop Eval I: Fluid Summary Crystalloid volume administer 300 09/24/24 17:08 ART GALLERY [email or web address].CSIR (ml) Colloids volume administered ( ml) Blood Product volume administered (ml) Total IV fluid infused 300 09/24/24 17:08 ART GALLERY [email or web address].CSIR Anesthesia Postop Eval I: Summary Notes Anesthesia Complication No 09/24/24 17:08 ART GALLERY [email or web address].CSIR Anesthesia Complication Comment: Post-operative progress note Patient requiring 09/24/24 17:08 ART GALLERY [email or web address].CSIR nonrebreather O2 to keep O2 saturation in mid 90's. Very dimished breath sounds MARCELLE. Dr. Rodriguez aware, DuoNeb to be given to patient. Anesthesia: Postop Eval II Evaluation Mental status: Awake and Calm Pain Level: 0 nausea: No Vomiting: No Progress Note Post-operative progress note: Patient is wheezing did diminish with the DuoNeb breathing treatment. With further time she was able to be weaned to 4 L nasal cannula and was discharged back to PCU. Complications Anesthesia Complication: No
--- NOTE | 2024-09-24 17:56 | CPS ---
Given in PACU
[2024-09-24] MEDS: MELATONIN 3 MG TABLET PO (22:02)
--- NOTE | 2024-09-24 22:38 | CPS ---
Patient refused PAP therapy for night time use.
[2024-09-25] VITALS (17 sets, daily range): BP systolic 111–149; BP diastolic 53–103; PULSE 76–90; RESP 16–24; TEMP 36.5–36.8; O2SAT 79–97
[2024-09-25] MEDS: 0.9% Saline Lock 10 ML Syringe IV ×3 (06:29→22:33)
[2024-09-25 06:48] LABS: Hematocrit 28.1 % (37-47); Hemoglobin 8.1 g/dL (12.0-15.0); Immature Granulocytes Count 0.280 X10^3/uL (0.0-0.0); Mean Corp Hgb Conc 28.8 g/dL (32-36); Mean Corpuscular Volume 92.7 fL (81-99); Mean Platelet Vol. 9.8 fl (6.2-12.0); NRBC Flagged by Analyzer 0.2 % (0-5); POSITIVE DIFFERENTIAL YES; Platelet Count 376 K/mm3 (150-450); RBC Distribution Width CV 20.0 % (11.6-14.6); RBC Distribution Width SD 61.1 fl (35.1-43.9); Red Blood Count 3.03 M/mm3 (4.2-5.4); White Blood Count 17.0 K/mm3 (4.4-11.0)
[2024-09-25 06:54] LABS: Anion Gap 9 (5-15); BUN 18 mg/dL (4-19); BUN/Creat Ratio 28.6 RATIO (10-20); Calcium,Total 9.0 mg/dL (7.6-11.0); Carbon Dioxide 26.9 mmol/L (21.0-32.0); Chloride 103 mmol/L (98-108); Estimated Creatinine Clearance 63.83 ml/min (50-250); Glucose 198 mg/dL (70-99); Potassium 4.6 mmol/L (3.3-5.1)
[2024-09-25] MEDS: Ipratropium 0.5 MG/2.5 ML SOLUTION INHALATION ×4 (07:05→19:47)
[2024-09-25] MEDS: Budesonide Respules 0.5 MG/2 ML AMPUL.NEB. INHALATION ×2 (07:05→19:47)
--- NOTE | 2024-09-25 08:30 | RAD_ITS ---
PROCEDURE: CHEST 1 VIEW (PORTABLE) 09/25/2024 REASON FOR EXAM: INCREASE SOB AND OXYGEN NEEDS TECHNIQUE: Frontal view of the chest. COMPARISON: September 23, 2024 FINDINGS: Hardware: EKG leads Heart: Enlarged. Aorta is atherosclerotic. Lungs: The mixed interstitial and airspace opacities in the lingula and both lower lobes with atelectasis and small effusions, [id number]-right is similar to prior exam. Bones: Degenerative changes are identified within the thoracic spine. Mild curvature of the thoracolumbar spine. RAD/Chest 1 View (Portable) IMPRESSION: Continued mixed interstitial and airspace opacities. Underlying pneumonia shou ld be considered. No change. Reading Location: [id number]
--- NOTE | 2024-09-25 10:34 | PN_ITS ---
Subjective Subjective Patient seen and examined with his nurse by his bedside. Patient noted to be much more short of breath today requiring up to 8 L of oxygen. She did have EGD yesterday so concern that she may have aspirated during the process. She is denying any cough, chest pain, palpitations, nausea or vomiting. Review of systems otherwise negative. Objective Data Objective Data Vital Signs: Vital Signs Temp Pulse Resp BP Pulse Ox O2 Del Method O2 Flow Rate 98.7 F 76 18 143/51 H 91 High Flow 8 09/24/24 22:00 09/25/24 07:06 09/25/24 07:06 09/24/24 22:02 09/25/24 08:00 09/25/24 08:00 09/25/24 08:00 FiO2 93 09/24/24 22:00 Oxygen Flow Rate (L/min) 8 Oxygen Delivery Method High Flow Weight: 201 lb 0.985 oz Body Mass Index (BMI) 36.8 Intake & Output: Intake and Output for Last 24 Hours 09/23/24 09/24/24 09/25/24 23:59 23:59 23:59 Intake Total 2426.25 / 2642.95 778.00 / 898.00 220 / 220 Output Total 800 / 1300 500 / 800 300 / 300 Balance 1626.25 / 1342.95 278.00 / 98.00 -80 / -80 Lab / Micro Data 09/25/24 06:09 09/25/24 06:09 Labs: Laboratory Results - last 24 hr 09/24/24 11:14: POC Glucose 199 H 09/24/24 17:54: POC Glucose 202 H 09/24/24 22:06: POC Glucose 269 H 09/25/24 06:09: WBC 17.0 H, RBC 3.03 L, Hgb 8.1 L, Hct 28.1 L, MCV 92.7, MCH 26.7 L, MCHC 28.8 L, RDW Std Deviation 61.1 H, RDW Coeff of Rashaad 20.0 H, Plt Count 376, MPV 9.8, Immature Gran % (Auto) 1.600 H, Neut % (Auto) 90.2 H, Lymph % (Auto) 2.6 L, [place] % (Auto) 5.5, Eos % (Auto) 0.0, Baso % (Auto) 0.1, Absolute Neuts (auto) 15.4 H, Absolute Lymphs (auto) 0.44 L, Nucleated RBC % 0.2, Sodium 139, Potassium 4.6, Chloride 103, Carbon Dioxide 26.9, Anion Gap 9, BUN 18, C reatinine 0.62 L, Estim Creat Clear Calc 63.83, Est GFR (MDRD) Non-Af 93, B UN/Creatinine Ratio 28.6 H, Glucose 198 H, Calcium 9.0 09/25/24 06:23: POC Glucose 207 H Micro: Microbiology 09/20/24 15:15 Blood Culture (Wb) - Anticubital Left Blood Culture - Preliminary No growth in 48 hours. 09/20/24 13:30 Blood Culture (Wb) - Anticubital Left Blood Culture - Preliminary No growth in 48 hours. 09/21/24 11:31 Stool Stool Occult Blood (SAI) - Final Occult Blood Positive 09/21/24 10:36 Urine, Clean Catch Legionella Antigen - Final 09/21/24 10:36 Urine, Clean Catch Streptococcus pneumoniae Antigen (M - Final Radiography Diagnostic Testing: Radiology Impression Chest X-Ray 09/25/24 08:30 IMPRESSION: Continued mixed interstitial and airspace opacities. Underlying pneumonia should be considered. No change. Reading Location: [facility] Physical Exam Const alert, oriented x3 and no apparent distress Constitutional Narrative: Class II obesity, with BMI of 36.8 General Appearance: cooperative HEENT normocephalic, head/scalp atraumatic, moist oral mucous membranes and oropharynx normal Eyes EOMs intact bilaterally Eyes Narrative: Significant conjunctiva pallor bilaterally, no scleral icterus Neck no lymphadenopathy and supple Neck Narrative: Neck is short and thick, trachea is midline Resp Resp Narrative: moderately diminished breath sounds bibasally, no wheezes. Bilateral crackles. On 8L of oxygen by nasal canula Auscultation: crackles Cardio regular rate, regular rhythm, S1 normal heart sound, S2 normal heart sound and no murmurs GI normal to inspection, nondistended, normoactive bowel sounds, soft to palpation, non-tender and non-distended GI Narrative: Obese abdomen Extremity normal to inspection, full ROM, normal capillary refill, no clubbing, cyanosis or edema and no calf tenderness Extremity Narrative: Pedal and radial pulses are 2+ General Extremity: no tenderness to palpation of joints or extremities Skin General Skin Exam: no breakdown Neuro oriented x3, CN's II-XII intact bilaterally, moves all extremities and no focal motor deficits Sensorium / Orientation: awake and alert Speech: speech normal Motor Exam: general weakness Psych thought process normal, cooperative and affect normal Appearance: appropriate Assessment & Plan Assessment/Plan (1) Acute hypoxemic respiratory failure: (2) GI bleed: PLAN: Plan #Acute hypoxic respiratory failure due to pneumonia and probable heart failure * oxygen requirements went up to 8L overnight. She did have the EGD yesterday so I am concerned she may have aspirated. wbc is also up to 17 from 12 yesterday, though that may also be due to the steroids * CXR today showed continued mixed interstitial and airspace opacities. * 2D echo showed EF of 70% with stage II diastolic dysfunction and no regional wall motion abnormalities noted pulmonary artery systolic pressure 49 mmHg. * Output so far totals 1425 mL though I highly doubt this is accurate. Positive fluid balance by 4394. Again it is questionable whether this is accurate. * Continue IV Lasix 40 mg twice daily * will broaden IV antibiotics to IV cefepime. * pulmonology on board already * Titrate oxygen to maintain saturation above 90%. Breathing treatments bronchodilators. * aspiration precuations * #Afib * Now converted to normal sinus rhythm. On metoprolol 50 twice daily. * on PO amiodarone 200mg daily also. * Blood thinners remain on hold due to the acute anemia * #Acute iron deficiency anemia due to bleeding peptic ulcer. * Hemoglobin today is 8.1. * She had EGD yesterday which showed multiple nonbleeding ulcers, and a single, oozing jejunal ulcer with pigmented material in which clip was placed. * Pantoprazole. Also started on sucralfate 1 g 4 times daily for 2 weeks. * Has received iron supplementation IV * GI on board. * * #Hypertension: On lisinopril and metoprolol as well as amlodipine. Amlodipine and lisinopril held due to hypotension. Metoprolol increased to 50mg bid due to afib with RVR. #Type 2 diabetes mellitus: Metformin and Mounjaro on hold. Insulin sliding scale. Accu-Cheks ACHS. A1c was 6.9 but in light of the severe anemia this may not be very accurate. #Hyperlipidemia: Statin #History of asthma: Breathing treatments with bronchodilators #DVT prophylaxis: On SCDs. Eliquis held due to anemia. Charges/Coding Visit Charges Inpatient E&M: 67799 Subs Hosp L3
[2024-09-25] MEDS: Pantoprazole Sodium 40 MG in 0.9% Normal Saline (100mL MB+) 100 ML 300 MG IV (11:44)
[2024-09-25] MEDS: Cefepime HCl 1 GM in 0.9% Normal Saline (50mL MB+) 50 ML IV ×2 (11:44→22:08)
[2024-09-25] MEDS: Pantoprazole Sodium 40 MG in 0.9% Normal Saline (100mL MB+) 100 ML 330 MG IV (21:17)
[2024-09-25] MEDS: MELATONIN 3 MG TABLET PO (22:20)
[2024-09-26] VITALS (36 sets, daily range): BP systolic 101–140; BP diastolic 44–84; PULSE 60–111; RESP 12–30; TEMP 36.1–37.3; O2SAT 90–99
[2024-09-26] MEDS: Ipratropium 0.5 MG/2.5 ML SOLUTION INHALATION ×5 (03:43→18:44)
--- NOTE | 2024-09-26 04:44 | NURSING ---
Patient called out due to having trouble breathing. Patient tachypneic and pulse ox sats in high 80's on 8 L NC. O2 increased to 10 L. Patient lung sounds with expiratory wheezes and very diminished bases. Respiratory therapy contacted to give breathing treatment. Treatment given and respiratory theray changed patient to Airvo therapy.
--- NOTE | 2024-09-26 05:18 | PCM.HOSP.N ---
Hospitalist Note Patient with increased oxygen requirements, not tolerating BIPAP secondary to anxiety, attempted transition to airvo but also unable to tolerate well and settings unable to be escalated. Will obtain ABG and will transition back to the ICU and attempt BIPAP with precedex usage concurrently.
[2024-09-26 05:56] LABS: FI02 55.0; SITE R Brach; VBG BASE EXCESS 8 mmol/L (-1.0-3.5); VBG PO2 35 mmHg (25-40); VBG SO2 62 % (50-70); VBG TCO2 35 mmol/L (23-33)
--- NOTE | 2024-09-26 06:27 | NURSING ---
respiratory therapy contacted Dr Mendez about patient increasing needs for oxygen therapy. Decision made to transfer patient to ICU. Report given to Zahira ABRASIVE MIXER and patient transported to the ICU via bed.
[2024-09-26] MEDS: Cefepime HCl 1 GM in 0.9% Normal Saline (50mL MB+) 50 ML IV ×3 (06:35→21:10)
[2024-09-26 06:47] LABS: Hematocrit 29.1 % (37-47); Hemoglobin 8.3 g/dL (12.0-15.0); Immature Granulocytes Count 0.280 X10^3/uL (0.0-0.0); Mean Corp Hgb Conc 28.5 g/dL (32-36); Mean Corpuscular Volume 93.6 fL (81-99); Mean Platelet Vol. 10.3 fl (6.2-12.0); NRBC Flagged by Analyzer 0.2 % (0-5); POSITIVE DIFFERENTIAL YES; POSITIVE MORPHOLOGY YES; Platelet Count 342 K/mm3 (150-450); RBC Distribution Width CV 20.6 % (11.6-14.6); RBC Distribution Width SD 65.1 fl (35.1-43.9); Red Blood Count 3.11 M/mm3 (4.2-5.4); White Blood Count 16.6 K/mm3 (4.4-11.0)
[2024-09-26] MEDS: dexMEDEtomidine 400 MCG in 0.9% Normal Saline (100mL Bag) 96 ML 11.4 MCG CONT INF ×2 (06:52→14:17)
[2024-09-26 06:53] LABS: Differential Indicated SCAN CRITERIA MET
[2024-09-26 07:05] LABS: Anion Gap 10 (5-15); BUN 22 mg/dL (4-19); BUN/Creat Ratio 31.0 RATIO (10-20); Calcium,Total 8.9 mg/dL (7.6-11.0); Carbon Dioxide 26.8 mmol/L (21.0-32.0); Chloride 103 mmol/L (98-108); Estimated Creatinine Clearance 63.83 ml/min (50-250); Glucose 134 mg/dL (70-99); Potassium 4.9 mmol/L (3.3-5.1)
[2024-09-26 07:06] LABS: Allen Test Positive; Base Excess 6 mmol/L (-2 to +2); FI02 35.0; PEEP 6; PO2 62 mmHG (75-100); RR 12; SITE R Radial; SO2 89 % (95-99)
[2024-09-26] MEDS: Budesonide Respules 0.5 MG/2 ML AMPUL.NEB. INHALATION ×2 (07:13→18:44)
[2024-09-26] MEDS: Pantoprazole Sodium 40 MG in 0.9% Normal Saline (100mL MB+) 100 ML 300 MG IV ×2 (07:42→22:03)
[2024-09-26 08:24] LABS: Acanthocytes 1+; Anisocytosis 1+; Polychromasia 1+; Tear Drop Cell 1+
[2024-09-26] MEDS: 0.9% Saline Lock 10 ML Syringe IV ×2 (11:04→18:30)
[2024-09-26] MEDS: CHLORHEXIDINE GLUC 2% CLOTH 1 EACH TOWELETTE TOPICAL (11:26)
--- NOTE | 2024-09-26 14:42 | PN_ITS ---
Subjective Subjective Patient seen and examined. She had to be transferred to the ICU emergently in the early hours of this morning due ot worsening shortness of breath. She was on BIPAP at time of review. She is coughing but denies any chest pain, palpitations, nausea or vomiting. Review of systems otherwise negative. Objective Data Objective Data Vital Signs: Vital Signs Temp Pulse Resp BP Pulse Ox O2 Del Method O2 Flow Rate 98.7 F 74 16 137/60 H 97 Bi-pap 40 09/26/24 04:39 09/26/24 14:39 09/26/24 14:39 09/26/24 14:00 09/26/24 14:39 09/26/24 14:00 09/26/24 06:16 FiO2 40 09/26/24 14:39 Oxygen Flow Rate (L/min) 40 Oxygen Delivery Method Bi-pap Weight: 201 lb 0.985 oz Body Mass Index (BMI) 36.8 Intake & Output: Intake and Output for Last 24 Hours 09/24/24 09/25/24 09/26/24 23:59 23:59 23:59 Intake Total 778.00 / 898.00 1754 / 1994 524.17 / 524.17 Output Total 500 / 800 300 / 300 400 / 400 Balance 278.00 / 98.00 1455 / 1695 124.17 / 124.17 Lab / Micro Data 09/26/24 05:55 09/26/24 05:55 Labs: Laboratory Results - last 24 hr 09/25/24 17:09: POC Glucose 236 H 09/25/24 22:27: POC Glucose 186 H 09/26/24 05:55: WBC 16.6 H, RBC 3.11 L, Hgb 8.3 L, Hct 29.1 L, MCV 93.6, MCH 26.7 L, MCHC 28.5 L, RDW Std Deviation 65.1 H, RDW Coeff of Rashaad 20.6 H, Plt Count 342, MPV 10.3, Immature Gran % (Auto) 1.700 H, Neut % (Auto) 79.5 H, Lymph % (Auto) 6.7 L, [place] % (Auto) 11.4 H, Eos % (Auto) 0.5, Baso % (Auto) 0.2, A bsolute Neuts (auto) 13.2 H, Absolute Lymphs (auto) 1.11, Nucleated RBC % 0.2, Platelet Estimate ADEQUATE, Polychromasia 1+, Anisocytosis 1+, Tear Drop Cells 1+, Ovalocytes 1+, Acanthocytes (Spur) 1+, Sodium 139, Potassium 4.9, Chloride 103, Carbon Dioxide 26.8, Anion Gap 10, BUN 22 H, Creatinine 0.71, Estim Creat Clear Calc 63.83, Est GFR (MDRD) Non-Af 89, BUN/Creatinine Ratio 31.0 H, Glucose 134 H, Calcium 8.9 09/26/24 07:44: POC Glucose 149 H 09/26/24 11:04: POC Glucose 156 H Micro: Microbiology 09/20/24 15:15 Blood Culture (Wb) - Anticubital Left Blood Culture - Final No growth in 5 days. 09/20/24 13:30 Blood Culture (Wb) - Anticubital Left Blood Culture - Final No growth in 5 days. 09/21/24 11:31 Stool Stool Occult Blood (SAI) - Final Occult Blood Positive 09/21/24 10:36 Urine, Clean Catch Legionella Antigen - Final 09/21/24 10:36 Urine, Clean Catch Streptococcus pneumoniae Antigen (M - Final ABG Data ABG results: ABG 09/26/24 09/26/24 05:51 07:02 Specimen Type RAY ART Sample Site R Brach R Radial pH 7.33 L Bicarbonate Actual 31.7 H Total CO2 34 Base Excess 6 H O2 Saturation 89 L O2 % 55.0 35.0 ABG pCO2 60.9 H ABG pO2 62 L Avi Test Positive VBG pH 7.34 VBG pO2 35 VBG HCO3 33 H VBG Total CO2 35 H VBG O2 Sat (Calc) 62 VBG Base Excess 8 H POC Mix VBG pCO2 Pt Tmp 61.3 H Respiration Rate 12 O2 Delivery Device HFNC BiPAP Vent Mode ST POC PEEP 6 Clinical Comments 01/22 Physical Exam Const alert and oriented x3 Constitutional Narrative: Class II obesity, with BMI of 36.8. on BIPAP at time of review. General Appearance: cooperative HEENT normocephalic, head/scalp atraumatic, moist oral mucous membranes and oropharynx normal Eyes EOMs intact bilaterally Eyes Narrative: Significant conjunctiva pallor bilaterally, no scleral icterus Neck supple Neck Narrative: Neck is short and thick Lymph Lymphatic: no lymphadenopathy noted Resp Resp Narrative: moderately diminished breath sounds bibasally, no wheezes. Bilateral crackles. OnBIPAP Cardio regular rate, regular rhythm, S1 normal heart sound, S2 normal heart sound and no murmurs GI normal to inspection, nondistended, normoactive bowel sounds, soft to palpation, non-tender and non-distended GI Narrative: Obese abdomen Extremity normal to inspection, full ROM, normal capillary refill, no clubbing, cyanosis or edema and no calf tenderness Extremity Narrative: Pedal and radial pulses are 2+ General Extremity: no tenderness to palpation of joints or extremities Skin Skin Narrative: Skin is pale General Skin Exam: no breakdown Neuro oriented x3, CN's II-XII intact bilaterally, moves all extremities and no focal motor deficits Sensorium / Orientation: awake and alert Speech: speech normal Motor Exam: strength 5/5 throughout and general weakness Psych thought process normal Psych Narrative: Affect is slightly flat affect Appearance: appropriate Assessment & Plan Assessment/Plan (1) Acute hypoxemic respiratory failure: (2) GI bleed: PLAN: Plan #Acute hypoxic respiratory failure due to pneumonia and probable heart failure * oxygen requirements went up to 8L after she had the EGD, so concern was she may have aspirated. wwbc today is slightly down from 17 yesterday to 16.6 today. * CXR showed continued mixed interstitial and airspace opacities. * 2D echo showed EF of 70% with stage II diastolic dysfunction and no regional wall motion abnormalities noted pulmonary artery systolic pressure 49 mmHg. * Output so far totals 1425 mL though I highly doubt this is accurate. Positive fluid balance by 4394. Again it is questionable whether this is accurate. * Transferred emergently to ICU early this morning due to worsening shortness of breath. Now on BiPAP * On IV cefepime. On IV Lasix 40 mg twice daily and IV Solu-Medrol. * Pulmonology critical care on board. * Titrate oxygen to maintain saturation above 90%. Breathing treatments bronchodilators. * aspiration precautions * awaiting critical care/pulm evaluation today; I spoke to Dr B[facility] of [facility] critical care, and he will see patient. * respiratory panel ordered. blood cultures negative. Urine for Strep and Legionella also ordered. * in cumulative positive balance by 6L * #Afib * Now converted to normal sinus rhythm. On metoprolol 50 twice daily. * on PO amiodarone 200mg daily also. * Blood thinners remain on hold due to the acute anemia.; Resume when ok with GI * #Acute iron deficiency anemia due to bleeding peptic ulcer. * Hemoglobin today is 8.3. * She had EGD which showed multiple nonbleeding ulcers, and a single, oozing jejunal ulcer with pigmented material in which clip was placed. * on IV Pantoprazole. Also started on sucralfate 1 g 4 times daily for 2 weeks. * Has received iron supplementation IV * GI on board. * #Hypertension: On lisinopril and metoprolol as well as amlodipine. Amlodipine and lisinopril held due to hypotension. Metoprolol increased to 50mg bid due to afib with RVR. #Type 2 diabetes mellitus: Metformin and Mounjaro on hold. Insulin sliding scale. Accu-Cheks ACHS. A1c was 6.9 but in light of the severe anemia this may not be very accurate. #Hyperlipidemia: Statin #History of asthma: Breathing treatments with bronchodilators #DVT prophylaxis: On SCDs. Eliquis held due to anemia. Resume when Ok with GI Charges/Coding Visit Charges Inpatient E&M: 69161 Subs Hosp L2
--- NOTE | 2024-09-26 17:37 | PCM.PN.TICU ---
Objective Data Objective Data Vital Signs: Vital Signs Last response Temperature 36.1 C L 09/26/24 15:00 Temperature Source Temporal 09/26/24 15:00 Pulse Rate 73 09/26/24 17:00 Pulse Strength Normal (2+) 09/26/24 10:00 Respiratory Rate 28 H 09/26/24 17:00 Respiratory Effort Normal, Non-Labored 09/26/24 11:58 Respiratory Depth Normal 09/26/24 11:58 Respiratory Pattern Normal 09/26/24 15:46 Blood Pressure 139/60 H 09/26/24 17:00 Blood Pressure Mean 86 09/26/24 17:00 Blood Pressure Source Monitor 09/26/24 17:00 Blood Pressure Position Semi-Fowlers 09/26/24 17:00 Blood Pressure Location Right Arm 09/26/24 17:00 Baseline BP 146/79 09/24/24 17:25 Pulse Ox 97 09/26/24 17:00 Oxygen Delivery Method Airvo 09/26/24 17:00 Oxygen Flow Rate (L/min) 40 09/26/24 17:00 Fraction of Inspired Oxygen (FIO2) 55 09/26/24 17:00 I&O: I&O Last 24 Hours 09/25/24 09/26/24 09/26/24 23:59 11:59 23:59 Intake Total 153 / 1994 437.12 / 532.34 95.22 / 532.34 Output Total 400 / 800 400 / 800 Balance 1535 / 1695 37.12 / -267.66 -304.78 / -267.66 I&O: Total Stay 09/20/24 14:01 thru 09/26/24 16:00 Intake Total 8206.59 Output Total 2525 Balance 5681.59 Current Meds Ordered / Administered: Current meds ordered / Administered Generic Name Dose Route Start Last Admin Trade Name Freq PRN Reason Stop Dose Admin Acetaminophen 650 mg 09/20/24 18:32 Acetaminophen 325 Mg Tablet PO Q6H PRN PRN Pain 1-10 Or Fever>100.7 Amiodarone HCl 200 mg 09/24/24 10:00 09/26/24 09:53 Amiodarone 200 Mg Tablet PO Not Given DAILY LUIS ARMANDO Apixaban 5 mg 09/20/24 22:00 09/21/24 10:32 Apixaban 5 Mg Tablet PO 5 mg BID LUIS ARMANDO Administration Aspirin 81 mg 09/21/24 08:00 09/21/24 10:32 Aspirin E.C. 81 Mg Tablet PO 81 mg BREAKFAST LUIS ARMANDO Administration Atorvastatin Calcium 80 mg 09/20/24 22:00 09/25/24 22:18 Atorvastatin Calcium 80 Mg Tablet PO 80 mg QHS LUIS ARMANDO Administration Budesonide 0.5 mg 09/20/24 19:45 09/26/24 07:13 Budesonide Respules 0.5 Mg/2 Ml Ampul.Neb. INHALATION 0.5 mg Q12H.RT LUIS ARMANDO Administration Chlorhexidine Gluconate 1 each 09/26/24 11:15 09/26/24 11:26 Chlorhexidine Gluc 2% Cloth 1 Each Towelette TOPICAL 1 each DAILY LUIS ARMANDO Administration Ergocalciferol 1.25 mg 09/20/24 18:32 09/20/24 20:52 Ergocalciferol 1.25 Mg (50, 000 Unit) Capsule PO Not Given QWEEK LUIS ARMANDO Furosemide 40 mg 09/22/24 18:00 09/26/24 07:41 Furosemide 40 Mg/4 Ml Vial IV 40 mg BIDLX LUIS ARMANDO Administration Protocol Glucagon 1 mg 09/20/24 18:32 Glucagon 1 Mg/Ml Syringe IM X1 PRN HYPOGLYCEMIA Protocol Guaifenesin 1,200 mg 09/20/24 22:00 09/26/24 09:30 Guaifenesin 1,200 Mg Tablet PO Not Given BID LUIS ARMANDO Dextrose 250 mls @ 0 mls/hr 09/20/24 18:32 Dextrose 10%-Water IV .Q0M PRN HYPOGLYCEMIA Protocol As Directed Sodium Chloride 250 mls @ 15 mls/hr 09/20/24 19:51 09/24/24 11:30 IV 0 mls/hr .[id number] PRN Infusion Saline Flush Sodium Chloride 250 mls @ 15 mls/hr 09/20/24 19:51 IV .[id number] PRN Additional IVPB Infusion Pantoprazole Sodium 40 mg/ 100 mls @ 300 mls/hr 09/21/24 22:00 09/26/24 09:35 Sodium Chloride IV Infused Q12 LUIS ARMANDO Infusion Cefepime HCl 1 gm/ Sodium 50 mls @ 100 mls/hr 09/25/24 08:20 09/26/24 13:41 Chloride IV Infused Q8 LUIS ARMANDO Infusion Dexmedetomidine HCl 400 mcg/ 100 mls @ 11.4 mls/hr 09/26/24 06:15 09/26/24 15:00 Sodium Chloride CONT INF 0.5 mcg/kg/hr .Q8H47M [facility] 11.4 mls/hr Titration Protocol 0.5 MCG/KG/HR Insulin Human Lispro 0 unit 09/20/24 22:00 09/26/24 16:22 Insulin Lispro 100 Unit/Ml Insuln.Pen SC Not Given ACHS [facility] Protocol Ipratropium Lanse 0.5 mg 09/23/24 13:15 09/26/24 14:37 Ipratropium 0.5 Mg/2.5 Ml Solution INHALATION 0.5 mg Q4HWA.RT LUIS ARMANDO Administration Lisinopril 20 mg 09/21/24 10:00 09/22/24 13:37 Lisinopril 20 Mg Tablet PO 20 mg DAILY [facility] Administration Protocol Melatonin 3 mg 09/21/24 23:00 09/25/24 22:20 Melatonin 3 Mg Tablet PO 3 mg QHS LUIS ARMANDO Administration Metoprolol Tartrate 50 mg 09/23/24 10:00 09/26/24 09:54 Metoprolol Tartrate 50 Mg Tablet PO Not Given BID [facility] Protocol Ondansetron HCl 4 mg 09/20/24 18:32 Ondansetron 4 Mg/2 Ml Vial IV Q8H PRN PRN NAUSEA/VOMITING Sodium Chloride 10 - 40 ml 09/20/24 19:51 09/26/24 11:04 0.9% Saline Lock 10 Ml Syringe IV 20 ml UD PRN Administration SALINE FLUSH Sucralfate 1 gm 09/25/24 11:00 09/26/24 09:54 Sucralfate 1 Gm Tablet PO Not Given 1HR_ACHS [facility] Lab / Micro Data 09/26/24 05:55 09/26/24 05:55 Labs: Laboratory Results - last 24 hr 09/25/24 17:09: POC Glucose 236 H 09/25/24 22:27: POC Glucose 186 H 09/26/24 05:55: WBC 16.6 H, RBC 3.11 L, Hgb 8.3 L, Hct 29.1 L, MCV 93.6, MCH 26.7 L, MCHC 28.5 L, RDW Std Deviation 65.1 H, RDW Coeff of Rashaad 20.6 H, Plt Count 342, MPV 10.3, Immature Gran % (Auto) 1.700 H, Neut % (Auto) 79.5 H, Lymph % (Auto) 6.7 L, [facility] % (Auto) 11.4 H, Eos % (Auto) 0.5, Baso % (Auto) 0.2, Absolute Neuts (auto) 13.2 H, Absolute Lymphs (auto) 1.11, Nucleated RBC % 0.2, Platelet Estimate ADEQUATE, Polychromasia 1+, Anisocytosis 1+, Tear Drop Cells 1+, Ovalocytes 1+, Acanthocytes (Spur) 1+, Sodium 139, Potassium 4.9, Chloride 103, Carbon Dioxide 26.8, Anion Gap 10, BUN 22 H, Creatinine 0.71, Estim Creat Clear Calc 63.83, Est GFR (MDRD) Non-Af 89, BUN/Creatinine Ratio 31.0 H, Glucose 134 H, Calcium 8.9 09/26/24 07:44: POC Glucose 149 H 09/26/24 11:04: POC Glucose 156 H 09/26/24 16:03: POC Glucose 142 H Micro: Microbiology 09/26/24 15:50 Urine Catheter - Corbin Legionella Antigen - Final 09/26/24 15:50 Urine Catheter - Corbin Streptococcus pneumoniae Antigen (M - Final 09/20/24 15:15 Blood Culture (Wb) - Anticubital Left Blood Culture - Final No growth in 5 days. 09/20/24 13:30 Blood Culture (Wb) - Anticubital Left Blood Culture - Final No growth in 5 days. ABG Data ABG results: ABG 09/26/24 09/26/24 05:51 07:02 Specimen Type RAY ART Sample Site R Brach R Radial pH 7.33 L Bicarbonate Actual 31.7 H Total CO2 34 Base Excess 6 H O2 Saturation 89 L O2 % 55.0 35.0 ABG pCO2 60.9 H ABG pO2 62 L Avi Test Positive VBG pH 7.34 VBG pO2 35 VBG HCO3 33 H VBG Total CO2 35 H VBG O2 Sat (Calc) 62 VBG Base Excess 8 H POC Mix VBG pCO2 Pt Tmp 61.3 H Respiration Rate 12 O2 Delivery Device HFNC BiPAP Vent Mode ST POC PEEP 6 Clinical Comments 01/22 Assessment and Plan . Assessment and plan: HPI Asked to re-visit d/t increasing O2 requirement Patient seen and examined. Chart and data reviewed. Recent imaging reviewed at length. TX to ICU for NIV support and high-flow O2 s/p EGD 09/24 - noted non-bleeding PUD Currently breathing O2 via HHFNC 40 LPM, FiO2 0.55 - SpO2 97% She appears comfortable currently at rest NSR w/ ectopy. No fever over past few days. I/O significantly (+) pCXR 09/25 reveals worsening lower zone infiltrates and effusions EXAM GEN NAD VS as above HEENT HHFNC NECK obese COR irreg CHEST bibasilar crackles ABD soft, obese EXT modest LE edema SKIN w/d YOSHI NF ASSESSMENT/PLAN 1. Acute respiratory failure requiring NIV support and high-flow O2 2. Bilateral pulmonary infiltrates - multiple considerations 3. Underlying emphysema, obesity 4. PAF - currently NSR w/ ectopy 5. Chronic CHF w/ DD 6. Former tobacco use 7. Anemia - PUD noted on recent EGD -supplemental O2 via HHFNC -NIV as needed for WOB and w/ sleep as tolerated -inhaled atrovent - avoid beta agonist -one dose steroids IV now, although minimal airflow obstruction on exam -increase dose and frequency furosemide -receiving empiric ABX -pCXR and p-BNP now -I would avoid amiodarone in this patient, given current and chronic pulmonary problems -receiving NOAC currently Critical Care Time: 50 minutes The entirety of this encounter was done via Telemedicine
[2024-09-26 18:05] LABS: Pro- Brain NATRIURETIC PEPTIDE 776 pg/mL (<=1800)
--- NOTE | 2024-09-26 18:05 | RAD_ITS ---
PROCEDURE: CHEST 1 VIEW (PORTABLE) 09/26/2024 REASON FOR EXAM: ARF TECHNIQUE: Frontal view of the chest. COMPARISON: Chest radiograph 1 day prior. FINDINGS: Hardware: None. Heart: Stable moderate cardiomegaly. Mild pulmonary vascular congestion. Lungs: Bibasilar atelectasis/scarring. Stable mild bilateral pleural effusions. No pneumothorax. Stable mixed interstitial and airspace opacities. Bones: Degenerative changes are identified within the thoracic spine. Arthrosis of the right glenohumeral joint. RAD/Chest 1 View (Portable) IMPRESSION: Stable chest radiograph. Reading Location: [id number]
[2024-09-26] MEDS: Furosemide 20 MG/2 ML VIAL IV (18:23)
[2024-09-26] MEDS: MELATONIN 3 MG TABLET PO (21:10)
[2024-09-27] VITALS (22 sets, daily range): BP systolic 101–143; BP diastolic 46–104; PULSE 68–100; RESP 15–20; TEMP 36.2–37.6; O2SAT 93–98; BMI 36.2
[2024-09-27 04:54] LABS: Hematocrit 28.6 % (37-47); Hemoglobin 8.7 g/dL (12.0-15.0); Immature Granulocytes Count 0.100 X10^3/uL (0.0-0.0); Mean Corp Hgb Conc 30.4 g/dL (32-36); Mean Corpuscular Volume 88.3 fL (81-99); Mean Platelet Vol. 9.9 fl (6.2-12.0); NRBC Flagged by Analyzer 0 % (0-5); POSITIVE DIFFERENTIAL YES; Platelet Count 336 K/mm3 (150-450); RBC Distribution Width CV 19.9 % (11.6-14.6); RBC Distribution Width SD 62.2 fl (35.1-43.9); Red Blood Count 3.24 M/mm3 (4.2-5.4); White Blood Count 9.3 K/mm3 (4.4-11.0)
[2024-09-27 05:08] LABS: Anion Gap 12 (5-15); BUN 19 mg/dL (4-19); BUN/Creat Ratio 31.0 RATIO (10-20); Calcium,Total 8.3 mg/dL (7.6-11.0); Carbon Dioxide 31.7 mmol/L (21.0-32.0); Chloride 95 mmol/L (98-108); Estimated Creatinine Clearance 63.83 ml/min (50-250); Glucose 210 mg/dL (70-99); Potassium 3.7 mmol/L (3.3-5.1)
[2024-09-27] MEDS: Cefepime HCl 1 GM in 0.9% Normal Saline (50mL MB+) 50 ML IV ×3 (05:30→22:05)
[2024-09-27] MEDS: Ipratropium 0.5 MG/2.5 ML SOLUTION INHALATION ×4 (07:17→20:32)
[2024-09-27] MEDS: Budesonide Respules 0.5 MG/2 ML AMPUL.NEB. INHALATION ×2 (07:17→20:32)
--- NOTE | 2024-09-27 08:02 | PCM.PN.INT ---
Assessment & Plan Assessment/Plan (1) COPD (chronic obstructive pulmonary disease): PLAN: Plan RECOMMENDATIONS: 1. Wean supplemental oxygen to maintain saturations at or above 90%. 2. Continue scheduled bronchodilators and steroids. 3. Antimicrobial therapy to complete 7 days. 4. Ongoing diuresis as tolerated by hemodynamics and renal function. 5. Encourage incentive spirometer use and mobilize patient as tolerated. 6. Transfuse blood products to maintain hemoglobin at or above 7 g/dL. Continue PPI therapy. 7. Encourage incentive spirometer use and mobilize patient as tolerated. IMPRESSIONS: 1. COPD exacerbation with hypoxemia Likely related to underlying pneumonia with possible heart failure with preserved ejection fraction contributing. The patient remains on appropriate medical therapy, including antimicrobials, bronchodilators, steroids and IV diuretics. Continue to wean supplemental oxygen to maintain saturations at or above 90%. Recommend empiric use of BiPAP therapy, as this may aid in alveolar recruitment, given the patient's body habitus and concern for underlying sleep disordered breathing. Continue diuretics as tolerated by hemodynamics and renal function. 2. Anemia with concern for gastrointestinal bleed Gastroenterology is following to assist with medical management. The patient is status post EGD on September 24 with nonbleeding duodenal ulcers and oozing jejunal ulcer noted. Continue PPI therapy as ordered. Transfuse if hemoglobin drops below 7 g/dL. 3. History of tobacco dependency in remission/hypertension/hyperlipidemia/diabetes mellitus Complicates care, management, recovery and prognosis. Continue supportive measures as noted above. This note was generated with [employer] dictation software. It may contain incorrect words, spelling, and punctuation that were not noted in checking the note before signing. Subjective Subjective The patient was seen and examined at the bedside this morning. Events from the last 24 hours have been reviewed. The patient is currently afebrile, hemodynamically stable and maintaining appropriate oxygen saturations on 5 L/min via nasal cannula. No overnight events were noted by the nursing staff. The patient is documented to be overall net +1.3 L for the hospitalization. White blood cell count is normal. Hemoglobin is stable at 8.7 g/dL. Creatinine is within normal limits. Objective Data Objective Data The patient's most recent lab work, culture data and imaging studies have all been personally reviewed. Surface echocardiogram demonstrated stage II diastolic dysfunction with an ejection fraction of 70%. Pulmonary artery systolic pressure was estimated to be 49 mmHg. Vital Signs: Vital Signs Temp Pulse Resp BP Pulse Ox O2 Del Method O2 Flow Rate 98.3 F 97 18 109/47 L 98 Nasal Cannula 5 09/27/24 07:00 09/27/24 07:17 09/27/24 07:17 09/27/24 07:00 09/27/24 07:45 09/27/24 07:45 09/27/24 07:45 FiO2 40 09/27/24 07:17 Oxygen Flow Rate (L/min) 5 Oxygen Delivery Method Nasal Cannula Weight: 197 lb 15.602 oz Body Mass Index (BMI) 36.2 Intake & Output: Intake and Output for Last 24 Hours 09/25/24 09/26/24 09/27/24 23:59 23:59 23:59 Intake Total 1755 / 1995 825.14 / 825.14 50 / 50 Output Total 300 / 300 4300 / 4700 1150 / 1150 Balance 1455 / 1695 -3474.86 / -3874.86 -1100 / -1100 Lab / Micro Data Attestation: I reviewed the patient's lab results. 09/27/24 04:15 09/27/24 04:15 Labs: Laboratory Results - last 24 hr 09/26/24 05:55: Platelet Estimate ADEQUATE, Polychromasia 1+, Anisocytosis 1+, Tear Drop Cells 1+, Ovalocytes 1+, Acanthocytes (Spur) 1+ 09/26/24 07:44: POC Glucose 149 H 09/26/24 11:04: POC Glucose 156 H 09/26/24 16:03: POC Glucose 142 H 09/26/24 17:25: NT pro BNP II 776 09/26/24 21:03: POC Glucose 182 H 09/27/24 04:15: WBC 9.3, RBC 3.24 L, Hgb 8.7 L, Hct 28.6 L, MCV 88.3 D, MCH 26.9 L, MCHC 30.4 L D, RDW Std Deviation 62.2 H, RDW Coeff of Rashaad 19.9 H, Plt Count 336, MPV 9.9, Immature Gran % (Auto) 1.100 H, Neut % (Auto) 92.7 H, Lymph % (Auto) 3.8 L, [place] % (Auto) 2.2, Eos % (Auto) 0.0, Baso % (Auto) 0.2, Absolute Neuts (auto) 8.6 H, Absolute Lymphs (auto) 0.35 L, Nucleated RBC % 0, Sodium 138, Potassium 3.7, Chloride 95 L, Carbon Dioxide 31.7, Anion Gap 12, BUN 19, Creatinine 0.62 L, Estim Creat Clear Calc 63.83, Est GFR (MDRD) Non-Af 93, BUN/Creatinine Ratio 31.0 H, Glucose 210 H, Calcium 8.3 Micro: Microbiology 09/26/24 15:10 Mucosa - Nasopharyngeal Respiratory Panel (PCR) - Final 09/26/24 15:50 Urine Catheter - Corbin Legionella Antigen - Final 09/26/24 15:50 Urine Catheter - Corbin Streptococcus pneumoniae Antigen (M - Final 09/20/24 15:15 Blood Culture (Wb) - Anticubital Left Blood Culture - Final No growth in 5 days. 09/20/24 13:30 Blood Culture (Wb) - Anticubital Left Blood Culture - Final No growth in 5 days. 09/21/24 11:31 Stool Stool Occult Blood (SAI) - Final Occult Blood Positive 09/21/24 10:36 Urine, Clean Catch Legionella Antigen - Final 09/21/24 10:36 Urine, Clean Catch Streptococcus pneumoniae Antigen (M - Final Radiography Diagnostic Testing: Radiology Impression Chest X-Ray 09/26/24 18:05 IMPRESSION: Stable chest radiograph. Reading Location: [facility] Physical Exam Const alert, oriented x3 and no apparent distress General Appearance: cooperative HEENT normocephalic, head/scalp atraumatic and moist oral mucous membranes Eyes PERRL, EOMs intact bilaterally and conjunctivae normal Neck supple General: trachea midline Chest inspection of chest normal Resp normal respiratory effort and no use of accessory muscles Effort and Inspection: able to speak in complete sentences Auscultation: rales and diminished lung sounds; Negative for rhonchi or wheezes Cardio regular rate and regular rhythm GI normal to inspection, nondistended, normoactive bowel sounds Extremity no clubbing, cyanosis or edema Skin no rashes or lesions noted Neuro CN's II-XII intact bilaterally, moves all extremities and no focal motor deficits Psych cooperative and affect normal Charges/Coding Visit Charges Inpatient E&M: 60572 Subs Hosp L2
--- NOTE | 2024-09-27 09:10 | CASEMGMT ---
Discussed DC planning with the pt during ICU rounds. Therapy still reports no additional therapy is recommended. At this time, the pt states that she still feels safe returning home with her son and denies further DC needs or concerns. Pt states that she has all of the oxygen equipment that she needs at home including a concentrator and portable tanks. CM to follow for updated O2 Rx needs. Pt denies further questions or concerns at this time.
[2024-09-27] MEDS: CHLORHEXIDINE GLUC 2% CLOTH 1 EACH TOWELETTE TOPICAL (10:24)
[2024-09-27] MEDS: Pantoprazole Sodium 40 MG in 0.9% Normal Saline (100mL MB+) 100 ML 300 MG IV (10:25)
--- NOTE | 2024-09-27 11:33 | PN_ITS ---
Subjective Subjective Patient seen and examined. She feels much better and is now off Arrvo and is on 5 L of oxygen. Review of systems is otherwise negative. Objective Data Objective Data Vital Signs: Vital Signs Temp Pulse Resp BP Pulse Ox O2 Del Method O2 Flow Rate 98.5 F 75 17 143/54 H 97 Nasal Cannula 5 09/27/24 08:00 09/27/24 11:16 09/27/24 11:16 09/27/24 08:00 09/27/24 08:00 09/27/24 08:00 09/27/24 08:00 FiO2 40 09/27/24 07:17 Oxygen Flow Rate (L/min) 5 Oxygen Delivery Method Nasal Cannula Weight: 197 lb 15.602 oz Body Mass Index (BMI) 36.2 Intake & Output: Intake and Output for Last 24 Hours 09/25/24 09/26/24 09/27/24 23:59 23:59 23:59 Intake Total 1755 / 1995 825.14 / 825.14 150 / 150 Output Total 300 / 300 4300 / 4700 3050 / 3050 Balance 1455 / 1695 -3474.86 / -3874.86 -2900 / -2900 Lab / Micro Data 09/27/24 04:15 09/27/24 04:15 Labs: Laboratory Results - last 24 hr 09/26/24 16:03: POC Glucose 142 H 09/26/24 17:25: NT pro BNP II 776 09/26/24 21:03: POC Glucose 182 H 09/27/24 04:15: WBC 9.3, RBC 3.24 L, Hgb 8.7 L, Hct 28.6 L, MCV 88.3 D, MCH 26.9 L, MCHC 30.4 L D, RDW Std Deviation 62.2 H, RDW Coeff of Rashaad 19.9 H, Plt Count 336, MPV 9.9, Immature Gran % (Auto) 1.100 H, Neut % (Auto) 92.7 H, Lymph % (Auto) 3.8 L, [place] % (Auto) 2.2, Eos % (Auto) 0.0, Baso % (Auto) 0.2, Absolute Neuts (auto) 8.6 H, Absolute Lymphs (auto) 0.35 L, Nucleated RBC % 0, Sodium 138, Potassium 3.7, Chloride 95 L, Carbon Dioxide 31.7, Anion Gap 12, BUN 19, C reatinine 0.62 L, Estim Creat Clear Calc 63.83, Est GFR (MDRD) Non-Af 93, B UN/Creatinine Ratio 31.0 H, Glucose 210 H, Calcium 8.3 09/27/24 07:57: POC Glucose 203 H Micro: Microbiology 09/26/24 15:10 Mucosa - Nasopharyngeal Respiratory Panel (PCR) - Final 09/26/24 15:50 Urine Catheter - Corbin Legionella Antigen - Final 09/26/24 15:50 Urine Catheter - Corbin Streptococcus pneumoniae Antigen (M - Final 09/20/24 15:15 Blood Culture (Wb) - Anticubital Left Blood Culture - Final No growth in 5 days. 09/20/24 13:30 Blood Culture (Wb) - Anticubital Left Blood Culture - Final No growth in 5 days. 09/21/24 11:31 Stool Stool Occult Blood (SAI) - Final Occult Blood Positive 09/21/24 10:36 Urine, Clean Catch Legionella Antigen - Final 09/21/24 10:36 Urine, Clean Catch Streptococcus pneumoniae Antigen (M - Final Radiography Diagnostic Testing: Radiology Impression Chest X-Ray 09/26/24 18:05 IMPRESSION: Stable chest radiograph. Reading Location: [facility] Physical Exam Const alert, oriented x3 and no apparent distress Constitutional Narrative: Class II obesity, with BMI of 36.8. on 5L of oxygen General Appearance: cooperative HEENT normocephalic, head/scalp atraumatic, moist oral mucous membranes and oropharynx normal Eyes EOMs intact bilaterally Neck no lymphadenopathy and supple Neck Narrative: Neck is short and thick Lymph Lymphatic: no lymphadenopathy noted Resp Resp Narrative: moderately diminished breath sounds bibasally, no wheezes. Bilateral crackles. on 5L of oxygen by nasal canula Auscultation: crackles Cardio regular rate, regular rhythm, S1 normal heart sound, S2 normal heart sound and no murmurs GI normal to inspection, nondistended, normoactive bowel sounds and soft to palpation GI Narrative: Obese abdomen Extremity normal to inspection, full ROM, normal capillary refill, no clubbing, cyanosis or edema and no calf tenderness Extremity Narrative: Pedal and radial pulses are 2+ General Extremity: no tenderness to palpation of joints or extremities Skin Skin Narrative: Skin is pale General Skin Exam: no breakdown Neuro oriented x3, CN's II-XII intact bilaterally, moves all extremities and no focal motor deficits Sensorium / Orientation: awake and alert Speech: speech normal Motor Exam: general weakness Psych thought process normal, cooperative and affect normal Appearance: appropriate Assessment & Plan Assessment/Plan (1) Acute hypoxemic respiratory failure: (2) GI bleed: PLAN: Plan #Acute hypoxic respiratory failure due to pneumonia and probable heart failure * oxygen requirements went up to 8L after she had the EGD, so concern was she may have aspirated. wwbc today is slightly down from 17 yesterday to 16.6 today. * CXR showed continued mixed interstitial and airspace opacities. * 2D echo showed EF of 70% with stage II diastolic dysfunction and no regional wall motion abnormalities noted pulmonary artery systolic pressure 49 mmHg. * Output so far totals 1425 mL though I highly doubt this is accurate. Positive fluid balance by 4394. Again it is questionable whether this is accurate. * Transferred emergently to ICU due to worsening shortness of breath. * Now off BIPAP and on IV normal saline 5L of oxygen. * On IV cefepime. On IV Lasix 40 mg twice daily and IV Solu-Medrol. * Pulmonology critical care on board. * Titrate oxygen to maintain saturation above 90%. Breathing treatments bronchodilators. * aspiration precautions * pulm crit on board. * respiratory panel ordered. blood cultures negative. Urine for Strep and Legionella also ordered. * in cumulative positive balance by 425mls. * #Afib * Now converted to normal sinus rhythm. On metoprolol 50 twice daily. * on PO amiodarone 200mg daily also. * Blood thinners remain on hold due to the acute anemia.; Resume when ok with GI * #Acute iron deficiency anemia due to bleeding peptic ulcer. * Hemoglobin today is 8.3. * She had EGD which showed multiple nonbleeding ulcers, and a single, oozing jejunal ulcer with pigmented material in which clip was placed. * on IV Pantoprazole. Also started on sucralfate 1 g 4 times daily for 2 weeks. * Has received iron supplementation IV * GI on board. * #Hypertension: On lisinopril and metoprolol as well as amlodipine. Amlodipine and lisinopril held due to hypotension. Metoprolol increased to 50mg bid due to afib with RVR. #Type 2 diabetes mellitus: Metformin and Mounjaro on hold. Insulin sliding scale. Accu-Cheks ACHS. A1c was 6.9 but in light of the severe anemia this may not be very accurate. #Hyperlipidemia: Statin #History of asthma: Breathing treatments with bronchodilators #DVT prophylaxis: On SCDs. Eliquis held due to anemia. Resume when Ok with GI Charges/Coding Visit Charges Inpatient E&M: 54023 Subs Hosp L2
--- NOTE | 2024-09-27 16:07 | CHAPLAIN ---
Type of Pastoral Visit ___ Initial Visit _x__ Follow-up Visit ___ On-call Visit ___ General Patient Visit ___ Spiritual Assessment ___ Family Conference ___ Bereavement ___ Rapid Response ___ Code Blue ___ Other (describe below) Pastoral Care Referral From _x__ Patient ___ Family ___ Nurse ___ Physician ___ Head Char Filter Tank Tender ___ Product Safety Lead ___ Other (describe below) Sacrament/Intervention _x__ Active listening ___ Anointing ___ Hindu ___ Bereavement ___ Communion _x__ Christina exploration ___ ___ Life review _x__ Prayer ___ Reconciliation ___ Sacrament of Sick _x__ Supportive presence ___ Wedding ___ Other (describe below) Pastoral Comments
[2024-09-27] MEDS: 0.9% Saline Lock 10 ML Syringe IV ×3 (18:11→22:53)
[2024-09-27] MEDS: Ergocalciferol 1.25 MG (50, 000 UNIT) Capsule PO (18:12)
[2024-09-27] MEDS: 0.9% Normal Saline (250mL Bag) 250 ML 15 ML IV (21:23)
[2024-09-27] MEDS: Pantoprazole Sodium 40 MG in 0.9% Normal Saline (100mL MB+) 100 ML 330 MG IV (21:24)
[2024-09-27] MEDS: MELATONIN 3 MG TABLET PO (22:51)
[2024-09-28] VITALS (12 sets, daily range): BP systolic 96–147; BP diastolic 49–86; PULSE 53–106; RESP 16–20; TEMP 36.4–36.7; O2SAT 94–98; BMI 36.3
[2024-09-28 05:59] LABS: Hematocrit 30.7 % (37-47); Hemoglobin 9.3 g/dL (12.0-15.0); Immature Granulocytes Count 0.070 X10^3/uL (0.0-0.0); Mean Corp Hgb Conc 30.3 g/dL (32-36); Mean Corpuscular Volume 88.0 fL (81-99); Mean Platelet Vol. 9.7 fl (6.2-12.0); NRBC Flagged by Analyzer 0 % (0-5); POSITIVE DIFFERENTIAL YES; Platelet Count 378 K/mm3 (150-450); RBC Distribution Width CV 19.9 % (11.6-14.6); RBC Distribution Width SD 63.7 fl (35.1-43.9); Red Blood Count 3.49 M/mm3 (4.2-5.4); White Blood Count 9.5 K/mm3 (4.4-11.0)
[2024-09-28 06:26] LABS: Anion Gap 12 (5-15); BUN 18 mg/dL (4-19); BUN/Creat Ratio 31.7 RATIO (10-20); Calcium,Total 8.3 mg/dL (7.6-11.0); Carbon Dioxide 32.1 mmol/L (21.0-32.0); Chloride 92 mmol/L (98-108); Estimated Creatinine Clearance 63.40 ml/min (50-250); Glucose 221 mg/dL (70-99); Potassium 3.3 mmol/L (3.3-5.1)
[2024-09-28] MEDS: Cefepime HCl 1 GM in 0.9% Normal Saline (50mL MB+) 50 ML IV ×3 (06:54→21:18)
[2024-09-28] MEDS: 0.9% Saline Lock 10 ML Syringe IV ×2 (07:04→17:39)
[2024-09-28] MEDS: Budesonide Respules 0.5 MG/2 ML AMPUL.NEB. INHALATION ×2 (07:19→20:13)
[2024-09-28] MEDS: Ipratropium 0.5 MG/2.5 ML SOLUTION INHALATION ×4 (07:19→20:13)
[2024-09-28] MEDS: APIXABAN 5 MG TABLET PO ×2 (09:46→20:54)
[2024-09-28] MEDS: Pantoprazole Sodium 40 MG in 0.9% Normal Saline (100mL MB+) 100 ML 300 MG IV (09:47)
--- NOTE | 2024-09-28 11:00 | PN_ITS ---
Subjective Subjective Patient seen and examined. She says she is feeling better. She is on 4 L of oxygen. I saw her with her nurse by her bedside. She denies any chest pain or palpitations, dizziness, nausea or vomiting. Review of systems otherwise negative. I referred patient to GI is okay with her resuming Eliquis to resume it and watch for any further bleeding. She has remained hemodynamically stable. Objective Data Objective Data Vital Signs: Vital Signs Temp Pulse Resp BP Pulse Ox O2 Del Method O2 Flow Rate 97.6 F L 78 16 147/69 H 94 Nasal Cannula 4 09/28/24 09:43 09/28/24 10:48 09/28/24 10:48 09/28/24 09:43 09/28/24 09:43 09/28/24 09:59 09/28/24 09:59 FiO2 40 09/27/24 07:17 Oxygen Flow Rate (L/min) 4 Oxygen Delivery Method Nasal Cannula Weight: 198 lb 10.184 oz Body Mass Index (BMI) 36.3 Intake & Output: Intake and Output for Last 24 Hours 09/26/24 09/27/24 09/28/24 23:59 23:59 23:59 Intake Total 825.14 / 825.14 350 / 470 270 / 270 Output Total 4300 / 4700 4500 / 5650 1750 / 1750 Balance -3474.86 / -3874.86 -4150 / -5180 -1480 / -1480 Lab / Micro Data 09/28/24 05:29 09/28/24 05:29 Labs: Laboratory Results - last 24 hr 09/27/24 12:27: POC Glucose 304 H 09/27/24 16:18: POC Glucose 193 H 09/27/24 21:36: POC Glucose 411 H 09/28/24 05:29: WBC 9.5, RBC 3.49 L, Hgb 9.3 L, Hct 30.7 L, MCV 88.0, MCH 26.6 L , MCHC 30.3 L, RDW Std Deviation 63.7 H, RDW Coeff of Rashaad 19.9 H, Plt Count 378, MPV 9.7, Immature Gran % (Auto) 0.700, Neut % (Auto) 91.0 H, Lymph % (Auto) 3.6 L, [place] % (Auto) 4.6, Eos % (Auto) 0.0, Baso % (Auto) 0.1, Absolute Neuts (auto) 8.7 H, Absolute Lymphs (auto) 0.34 L, Nucleated RBC % 0, Sodium 137, Potassium 3.3, Chloride 92 L, Carbon Dioxide 32.1 H, Anion Gap 12, BUN 18, Creatinine 0.56 L, Estim Creat Clear Calc 63.40, Est GFR (MDRD) Non-Af 95, BUN/Creatinine Ratio 31.7 H, Glucose 221 H, Calcium 8.3 09/28/24 07:03: POC Glucose 224 H Micro: Microbiology 09/27/24 09:30 Sputum, Expectorated/Coughed Gram Stain - Final 09/27/24 09:30 Sputum, Expectorated/Coughed Respiratory Culture - Final 09/26/24 15:10 Mucosa - Nasopharyngeal Respiratory Panel (PCR) - Final 09/26/24 15:50 Urine Catheter - Corbin Legionella Antigen - Final 09/26/24 15:50 Urine Catheter - Corbin Streptococcus pneumoniae Antigen (M - Final 09/20/24 15:15 Blood Culture (Wb) - Anticubital Left Blood Culture - Final No growth in 5 days. 09/20/24 13:30 Blood Culture (Wb) - Anticubital Left Blood Culture - Final No growth in 5 days. 09/21/24 11:31 Stool Stool Occult Blood (SAI) - Final Occult Blood Positive 09/21/24 10:36 Urine, Clean Catch Legionella Antigen - Final 09/21/24 10:36 Urine, Clean Catch Streptococcus pneumoniae Antigen (M - Final Physical Exam Const alert, oriented x3, no apparent distress and well nourished Constitutional Narrative: Class II obesity, with BMI of 36.8. on 4 L of oxygen General Appearance: cooperative HEENT normocephalic, head/scalp atraumatic, moist oral mucous membranes and oropharynx normal Eyes EOMs intact bilaterally Eyes Narrative: Significant conjunctiva pallor bilaterally, no scleral icterus Neck no lymphadenopathy and supple Neck Narrative: Neck is short and thick Lymph Lymphatic: no lymphadenopathy noted Resp Resp Narrative: moderately diminished breath sounds bibasally, no wheezes. Bilateral crackles. on 4 L of oxygen by nasal canula Auscultation: crackles and wheezes Cardio regular rate, regular rhythm, S1 normal heart sound, S2 normal heart sound and no murmurs GI normal to inspection, nondistended, normoactive bowel sounds, soft to palpation, non-tender and non-distended GI Narrative: Obese abdomen Extremity normal to inspection, full ROM, normal capillary refill and no clubbing, cyanosis or edema Extremity Narrative: Pedal and radial pulses are 2+ General Extremity: no tenderness to palpation of joints or extremities Skin Skin Narrative: Skin is pale General Skin Exam: no breakdown Neuro oriented x3, CN's II-XII intact bilaterally, moves all extremities and no focal motor deficits Sensorium / Orientation: awake and alert Speech: speech normal Motor Exam: strength 5/5 throughout and general weakness Psych thought process normal, cooperative and affect normal Appearance: appropriate Assessment & Plan Assessment/Plan (1) Acute hypoxemic respiratory failure: (2) GI bleed: PLAN: Plan #Acute hypoxic respiratory failure due to pneumonia and probable heart failure * oxygen requirements went up to 8L after she had the EGD, so concern was she may have aspirated. wwbc today is slightly down from 17 yesterday to 16.6 today. * CXR showed continued mixed interstitial and airspace opacities. * 2D echo showed EF of 70% with stage II diastolic dysfunction and no regional wall motion abnormalities noted pulmonary artery systolic pressure 49 mmHg. * Output so far totals 1425 mL though I highly doubt this is accurate. Positive fluid balance by 4394. Again it is questionable whether this is accurate. * Transferred emergently to ICU due to worsening shortness of breath. * Now off BIPAP and on IV normal saline 5L of oxygen. * On IV cefepime. On IV Lasix 40 mg twice daily and IV Solu-Medrol. * Pulmonology critical care on board. * Titrate oxygen to maintain saturation above 90%. Breathing treatments bronchodilators. * aspiration precautions * now down to 4L of oxygen today and feels much better. * respiratory panel ordered. blood cultures negative. Urine for Strep and Legionella also ordered. * in cumulative positive balance by 425mls. * #Afib * Now converted to normal sinus rhythm. On metoprolol 50 twice daily. * on PO amiodarone 200mg daily also. * per GI, ok to resume eliquis, so eliquis resumed today. * * #Acute iron deficiency anemia due to bleeding peptic ulcer. * Hemoglobin today is 9.3. * She had EGD which showed multiple nonbleeding ulcers, and a single, oozing jejunal ulcer with pigmented material in which clip was placed. * on IV Pantoprazole. Also started on sucralfate 1 g 4 times daily for 2 weeks. * Has received iron supplementation IV * GI on board. * eliquis resumed today per GI recommendation. * #Hypertension: On lisinopril and metoprolol as well as amlodipine. Amlodipine and lisinopril held due to hypotension. Metoprolol increased to 50mg bid due to afib with RVR. #Type 2 diabetes mellitus: Metformin and Mounjaro on hold. Insulin sliding scale. Accu-Cheks ACHS. A1c was 6.9 but in light of the severe anemia this may not be very accurate. #Hyperlipidemia: Statin #History of asthma: Breathing treatments with bronchodilators #DVT prophylaxis: On SCDs. Eliquis held due to anemia. GI ok with resumption, so eliquis resumed today. Charges/Coding Visit Charges Inpatient E&M: 92884 Subs Hosp L2
--- NOTE | 2024-09-28 16:16 | PN.CC_ITS ---
Objective Data Objective Data Vital Signs: Vital Signs Last response 3 Temperature 36.7 C 09/28/24 15:07 Temperature Source Oral 09/28/24 15:07 Pulse Rate 82 09/28/24 15:09 Pulse Strength Normal (2+) 09/27/24 09:41 Respiratory Rate 20 H 09/28/24 15:09 Respiratory Effort Normal, Non-Labored 09/28/24 15:09 Respiratory Depth Normal 09/28/24 15:09 Respiratory Pattern Normal 09/28/24 15:09 Blood Pressure 96/58 L 09/28/24 15:07 Blood Pressure Mean 70 09/28/24 15:07 Blood Pressure Source Monitor 09/28/24 02:00 Blood Pressure Position Semi-Fowlers 09/28/24 02:00 Blood Pressure Location Right Arm 09/28/24 02:00 Baseline BP 146/79 09/24/24 17:25 Pulse Ox 97 09/28/24 15:07 Oxygen Delivery Method Nasal Cannula 09/28/24 15:09 Oxygen Flow Rate (L/min) 4 09/28/24 15:07 Fraction of Inspired Oxygen (FIO2) 40 09/27/24 07:17 I&O: I&O Last 24 Hours 3 09/27/24 09/28/24 09/28/24 23:59 11:59 23:59 Intake Total 200 / 470 270 / 1245.5 975.5 / 1245.5 Output Total 1450 / 5650 1750 / 3250 1500 / 3250 Balance -1250 / -5180 -1480 / -2004.5 -524.5 / -2004.5 I&O: Total Stay 3 09/20/24 14:01 thru 09/28/24 16:07 Intake Total 22700.89 Output Total 94098 Balance -3680.11 Current Meds Ordered / Administered: Current meds ordered / Administered 3 Generic Name Dose Route Start Last Admin Trade Name Freq PRN Reason Stop Dose Admin Acetaminophen 650 mg 09/20/24 18:32 Acetaminophen 325 Mg Tablet PO Q6H PRN PRN Pain 1-10 Or Fever>100.7 Amiodarone HCl 200 mg 09/24/24 10:00 09/28/24 09:51 Amiodarone 200 Mg Tablet PO 200 mg DAILY LUIS ARMANDO Administration Apixaban 5 mg 09/20/24 22:00 09/28/24 09:46 Apixaban 5 Mg Tablet PO 5 mg BID LUIS ARMANDO Administration Aspirin 81 mg 09/21/24 08:00 09/21/24 10:32 Aspirin E.C. 81 Mg Tablet PO 81 mg BREAKFAST LUIS ARMANDO Administration Atorvastatin Calcium 80 mg 09/20/24 22:00 09/27/24 21:18 Atorvastatin Calcium 80 Mg Tablet PO 80 mg QHS LUIS ARMANDO Administration Budesonide 0.5 mg 09/20/24 19:45 09/28/24 07:19 Budesonide Respules 0.5 Mg/2 Ml Ampul.Neb. INHALATION 0.5 mg Q12H.RT LUIS ARMANDO Administration Chlorhexidine Gluconate 1 each 09/26/24 11:15 09/28/24 09:58 Chlorhexidine Gluc 2% Cloth 1 Each [place] TOPICAL Not Given DAILY LUIS ARMANDO Ergocalciferol 1.25 mg 09/20/24 18:32 09/27/24 18:12 Ergocalciferol 1.25 Mg (50, 000 Unit) Capsule PO 1.25 mg QWEEK LUIS ARMANDO Administration Furosemide 60 mg 09/27/24 00:00 09/28/24 11:34 Furosemide 100 Mg/10 Ml Vial IV 60 mg Q6 LUIS ARMANDO Administration Protocol Glucagon 1 mg 09/20/24 18:32 Glucagon 1 Mg/Ml Syringe IM X1 PRN HYPOGLYCEMIA Protocol Guaifenesin 1,200 mg 09/20/24 22:00 09/28/24 09:46 Guaifenesin 1,200 Mg Tablet PO 1,200 mg BID LUIS ARMANDO Administration Dextrose 250 mls @ 0 mls/hr 09/20/24 18:32 Dextrose 10%-Water IV .Q0M PRN HYPOGLYCEMIA Protocol As Directed Sodium Chloride 250 mls @ 15 mls/hr 09/20/24 19:51 09/28/24 12:25 IV Infused .[id number] PRN Infusion Saline Flush Sodium Chloride 250 mls @ 15 mls/hr 09/20/24 19:51 IV .[id number] PRN Additional IVPB Infusion Cefepime HCl 1 gm/ Sodium 50 mls @ 100 mls/hr 09/25/24 08:20 09/28/24 16:07 Chloride IV Infused Q8 LUIS ARMANDO Infusion Insulin Human Lispro 0 unit 09/20/24 22:00 09/28/24 11:37 Insulin Lispro 100 Unit/Ml Insuln.Pen SC 7 u ACHS LUIS ARMANDO Administration Protocol Ipratropium [place] 0.5 mg 09/23/24 13:15 09/28/24 14:46 Ipratropium 0.5 Mg/2.5 Ml Solution INHALATION 0.5 mg Q4HWA.RT LUIS ARMANDO Administration Lisinopril 20 mg 09/21/24 10:00 09/22/24 13:37 Lisinopril 20 Mg Tablet PO 20 mg DAILY LUIS ARMANDO Administration Protocol Melatonin 3 mg 09/21/24 23:00 09/27/24 22:51 Melatonin 3 Mg Tablet PO 3 mg QHS LUIS ARMANDO Administration Methylprednisolone Sodium Succinate 40 mg 09/27/24 12:00 09/28/24 11:34 Methylprednisolone Sod Succ 40 Mg/Ml Vial IV 40 mg Q6 LUIS ARMANDO Administration Metoprolol Tartrate 50 mg 09/23/24 10:00 09/28/24 09:46 Metoprolol Tartrate 50 Mg Tablet PO 50 mg BID LUIS ARMANDO Administration Protocol Ondansetron HCl 4 mg 09/20/24 18:32 Ondansetron 4 Mg/2 Ml Vial IV Q8H PRN PRN NAUSEA/VOMITING Pantoprazole Sodium 40 mg 09/28/24 22:00 Pantoprazole Sodium 40 Mg Tablet PO BID ON LICENSE OF [facility] Sodium Chloride 10 - 40 ml 09/20/24 19:51 09/28/24 07:04 0.9% Saline Lock 10 Ml Syringe IV 10 ml UD PRN Administration SALINE FLUSH Sucralfate 1 gm 09/25/24 11:00 09/28/24 11:33 Sucralfate 1 Gm Tablet PO 1 gm 1HR_ACHS LUIS ARMANDO Administration Lab / Micro Data Attestation: I reviewed the patient's lab results. 09/28/24 05:29 09/28/24 05:29 Labs: Laboratory Results - last 24 hr 09/27/24 16:18: POC Glucose 193 H 09/27/24 21:36: POC Glucose 411 H 09/28/24 05:29: WBC 9.5, RBC 3.49 L, Hgb 9.3 L, Hct 30.7 L, MCV 88.0, MCH 26.6 L , MCHC 30.3 L, RDW Std Deviation 63.7 H, RDW Coeff of Rashaad 19.9 H, Plt Count 378, MPV 9.7, Immature Gran % (Auto) 0.700, Neut % (Auto) 91.0 H, Lymph % (Auto) 3.6 L, [place] % (Auto) 4.6, Eos % (Auto) 0.0, Baso % (Auto) 0.1, Absolute Neuts (auto) 8.7 H, Absolute Lymphs (auto) 0.34 L, Nucleated RBC % 0, Sodium 137, Potassium 3.3, Chloride 92 L, Carbon Dioxide 32.1 H, Anion Gap 12, BUN 18, Creatinine 0.56 L, Estim Creat Clear Calc 63.40, Est GFR (MDRD) Non-Af 95, BUN/Creatinine Ratio 31.7 H, Glucose 221 H, Calcium 8.3 09/28/24 07:03: POC Glucose 224 H 09/28/24 11:33: POC Glucose 404 H Micro: Microbiology 09/27/24 09:30 Sputum, Expectorated/Coughed Gram Stain - Final 09/27/24 09:30 Sputum, Expectorated/Coughed Respiratory Culture - Final Assessment and Plan . Assessment and plan: Acute Exacerbation of COPD Multifocal Pneumonia Former Tobacco use DM HTN PUD s/p recent EGD 1. Wean supplemental oxygen to maintain saturations at or above 90%. 2. Continue scheduled bronchodilators and steroids (wean as tolerated given PUD). 3. Antimicrobial therapy to complete 7 days. 4. Ongoing diuresis as tolerated by hemodynamics and renal function; follow serum bicarb and avoid contraction alkalosis. 5. Encourage incentive spirometer use and mobilize patient as tolerated. 6. Transfuse blood products to maintain hemoglobin at or above 7 g/dL. Continue PPI therapy. 7. Encourage incentive spirometer use and mobilize patient as tolerated. The entirety of this encounter was done via Telemedicine Physical Exam Const alert, oriented x3 and no apparent distress General Appearance: cooperative and well developed HEENT normocephalic Eyes conjunctivae normal Chest Chest Narrative: normal excursion Resp normal respiratory effort and no use of accessory muscles Effort and Inspection: able to speak in complete sentences Cardio regular rate, regular rhythm, S1 normal heart sound and S2 normal heart sound Extremity Extremity Narrative: + edema Neuro Neuro Narrative: visually impaired Psych cooperative and affect normal Appearance: well kempt Subjective Subjective PT reports feeling tired but otherwise better than on presentation. Has not moved around much to test dyspnea.
[2024-09-28] MEDS: MELATONIN 3 MG TABLET PO (20:54)
[2024-09-29] VITALS (10 sets, daily range): BP systolic 108–151; BP diastolic 61–71; PULSE 59–74; RESP 16–18; TEMP 35.5–36.7; O2SAT 84–99; BMI 36.0
[2024-09-29] MEDS: Cefepime HCl 1 GM in 0.9% Normal Saline (50mL MB+) 50 ML IV ×3 (05:23→21:01)
[2024-09-29 05:43] LABS: Hematocrit 32.0 % (37-47); Hemoglobin 9.9 g/dL (12.0-15.0); Immature Granulocytes Count 0.070 X10^3/uL (0.0-0.0); Mean Corp Hgb Conc 30.9 g/dL (32-36); Mean Corpuscular Volume 86.3 fL (81-99); Mean Platelet Vol. 9.8 fl (6.2-12.0); NRBC Flagged by Analyzer 0 % (0-5); POSITIVE DIFFERENTIAL YES; Platelet Count 396 K/mm3 (150-450); RBC Distribution Width CV 19.2 % (11.6-14.6); RBC Distribution Width SD 59.8 fl (35.1-43.9); Red Blood Count 3.71 M/mm3 (4.2-5.4); White Blood Count 10.4 K/mm3 (4.4-11.0)
[2024-09-29 06:21] LABS: Anion Gap 12 (5-15); BUN 22 mg/dL (4-19); BUN/Creat Ratio 35.3 RATIO (10-20); Calcium,Total 8.5 mg/dL (7.6-11.0); Carbon Dioxide 34.0 mmol/L (21.0-32.0); Chloride 90 mmol/L (98-108); Estimated Creatinine Clearance 63.10 ml/min (50-250); Glucose 242 mg/dL (70-99); Potassium 3.5 mmol/L (3.3-5.1)
[2024-09-29] MEDS: Budesonide Respules 0.5 MG/2 ML AMPUL.NEB. INHALATION ×2 (06:49→19:53)
[2024-09-29] MEDS: Ipratropium 0.5 MG/2.5 ML SOLUTION INHALATION ×4 (06:49→23:35)
--- NOTE | 2024-09-29 08:43 | PCM.PN.TICU ---
Objective Data Objective Data Vital Signs: Vital Signs Last response Temperature 35.5 C L 09/29/24 05:10 Temperature Source Temporal 09/29/24 05:10 Pulse Rate 59 L 09/29/24 06:51 Pulse Strength Normal (2+) 09/28/24 22:00 Respiratory Rate 18 09/29/24 06:51 Respiratory Effort Normal, Non-Labored 09/28/24 21:00 Respiratory Depth Normal 09/28/24 21:00 Respiratory Pattern Normal 09/29/24 06:51 Blood Pressure 108/70 09/29/24 05:10 Blood Pressure Mean 82 09/29/24 05:10 Blood Pressure Source Monitor 09/29/24 05:10 Blood Pressure Position Semi-Fowlers 09/29/24 05:10 Blood Pressure Location Left Arm 09/29/24 05:10 Baseline BP 146/79 09/24/24 17:25 Pulse Ox 94 09/29/24 06:51 Oxygen Delivery Method Nasal Cannula 09/29/24 06:51 Oxygen Flow Rate (L/min) 4 09/29/24 06:51 Fraction of Inspired Oxygen (FIO2) 40 09/27/24 07:17 I&O: I&O Last 24 Hours 09/28/24 09/28/24 09/29/24 11:59 23:59 11:59 Intake Total 270 / 1835.5 1265.5 / 1835.5 450 / 450 Output Total 1750 / 5100 2250 / 5100 2050 / 2050 Balance -1480 / -3264.5 -984.5 / -3264.5 -1600 / -1600 I&O: Total Stay 09/20/24 14:01 thru 09/29/24 06:45 Intake Total 91828.89 Output Total 78693 Balance -5740.11 Current Meds Ordered / Administered: Current meds ordered / Administered Generic Name Dose Route Start Last Admin Trade Name Freq PRN Reason Stop Dose Admin Acetaminophen 650 mg 09/20/24 18:32 Acetaminophen 325 Mg Tablet PO Q6H PRN PRN Pain 1-10 Or Fever>100.7 Amiodarone HCl 200 mg 09/24/24 10:00 09/28/24 09:51 Amiodarone 200 Mg Tablet PO 200 mg DAILY LUIS ARMANDO Administration Apixaban 5 mg 09/20/24 22:00 09/28/24 20:54 Apixaban 5 Mg Tablet PO 5 mg BID LUIS ARMANDO Administration Aspirin 81 mg 09/21/24 08:00 09/21/24 10:32 Aspirin E.C. 81 Mg Tablet PO 81 mg BREAKFAST LUIS ARMANDO Administration Atorvastatin Calcium 80 mg 09/20/24 22:00 09/28/24 20:54 Atorvastatin Calcium 80 Mg Tablet PO 80 mg QHS LUIS ARMANDO Administration Budesonide 0.5 mg 09/20/24 19:45 09/29/24 06:49 Budesonide Respules 0.5 Mg/2 Ml Ampul.Neb. INHALATION 0.5 mg Q12H.RT LUIS ARMANDO Administration Chlorhexidine Gluconate 1 each 09/26/24 11:15 09/28/24 09:58 Chlorhexidine Gluc 2% Cloth 1 Each [place] TOPICAL Not Given DAILY LUIS ARMANDO Ergocalciferol 1.25 mg 09/20/24 18:32 09/27/24 18:12 Ergocalciferol 1.25 Mg (50, 000 Unit) Capsule PO 1.25 mg QWEEK LUIS ARMANDO Administration Furosemide 60 mg 09/27/24 00:00 09/29/24 05:23 Furosemide 100 Mg/10 Ml Vial IV 60 mg Q6 LUIS ARMANDO Administration Protocol Glucagon 1 mg 09/20/24 18:32 Glucagon 1 Mg/Ml Syringe IM X1 PRN HYPOGLYCEMIA Protocol Guaifenesin 1,200 mg 09/20/24 22:00 09/28/24 20:54 Guaifenesin 1,200 Mg Tablet PO 1,200 mg BID LUIS ARMANDO Administration Dextrose 250 mls @ 0 mls/hr 09/20/24 18:32 Dextrose 10%-Water IV .Q0M PRN HYPOGLYCEMIA Protocol As Directed Sodium Chloride 250 mls @ 15 mls/hr 09/20/24 19:51 09/28/24 12:25 IV Infused .[id number] PRN Infusion Saline Flush Sodium Chloride 250 mls @ 15 mls/hr 09/20/24 19:51 IV .[id number] PRN Additional IVPB Infusion Cefepime HCl 1 gm/ Sodium 50 mls @ 100 mls/hr 09/25/24 08:20 09/29/24 06:45 Chloride IV Infused Q8 LUIS ARMANDO Infusion Insulin Human Lispro 0 unit 09/20/24 22:00 09/29/24 06:34 Insulin Lispro 100 Unit/Ml Insuln.Pen SC 3 u ACHS LUIS ARMANDO Administration Protocol Ipratropium Morley 0.5 mg 09/23/24 13:15 09/29/24 06:49 Ipratropium 0.5 Mg/2.5 Ml Solution INHALATION 0.5 mg Q4HWA.RT LUIS ARMANDO Administration Lisinopril 20 mg 09/21/24 10:00 09/22/24 13:37 Lisinopril 20 Mg Tablet PO 20 mg DAILY LUIS ARMANDO Administration Protocol Melatonin 3 mg 09/21/24 23:00 09/28/24 20:54 Melatonin 3 Mg Tablet PO 3 mg QHS LUIS ARMANDO Administration Methylprednisolone Sodium Succinate 40 mg 09/27/24 12:00 09/29/24 05:23 Methylprednisolone Sod Succ 40 Mg/Ml Vial IV 40 mg Q6 LUIS ARMNADO Administration Metoprolol Tartrate 50 mg 09/23/24 10:00 09/28/24 20:55 Metoprolol Tartrate 50 Mg Tablet PO 50 mg BID LUIS ARMANDO Administration Protocol Ondansetron HCl 4 mg 09/20/24 18:32 Ondansetron 4 Mg/2 Ml Vial IV Q8H PRN PRN NAUSEA/VOMITING Pantoprazole Sodium 40 mg 09/28/24 22:00 09/28/24 20:54 Pantoprazole Sodium 40 Mg Tablet PO 40 mg BID LUIS ARMANDO Administration Sodium Chloride 10 - 40 ml 09/20/24 19:51 09/28/24 17:39 0.9% Saline Lock 10 Ml Syringe IV 40 ml UD PRN Administration SALINE FLUSH Sucralfate 1 gm 09/25/24 11:00 09/29/24 06:33 Sucralfate 1 Gm Tablet PO 1 gm 1HR_ACHS LUIS ARMANDO Administration Lab / Micro Data 09/29/24 05:27 09/29/24 05:27 Labs: Laboratory Results - last 24 hr 09/28/24 11:33: POC Glucose 404 H 09/28/24 16:28: POC Glucose 375 H 09/28/24 21:16: POC Glucose 372 H 09/29/24 05:27: WBC 10.4, RBC 3.71 L, Hgb 9.9 L, Hct 32.0 L, MCV 86.3, MCH 26.7 L, MCHC 30.9 L, RDW Std Deviation 59.8 H, RDW Coeff of Rashaad 19.2 H, Plt Count 396, MPV 9.8, Immature Gran % (Auto) 0.700, Neut % (Auto) 90.8 H, Lymph % (Auto) 3.7 L, Ponce % (Auto) 4.8, Eos % (Auto) 0.0, Baso % (Auto) 0.0, Absolute Neuts (auto) 9.5 H, Absolute Lymphs (auto) 0.39 L, Nucleated RBC % 0, Sodium 136, Potassium 3.5, Chloride 90 L, Carbon Dioxide 34.0 H, Anion Gap 12, BUN 22 H, Creatinine 0.61 L, Estim Creat Clear Calc 63.10, Est GFR (MDRD) Non-Af 93, BUN/Creatinine Ratio 35.3 H, Glucose 242 H, Calcium 8.5 09/29/24 06:32: POC Glucose 243 H Assessment and Plan . Assessment and plan: Subjective: No acute events o/n. Pt feels breathing improving Physical Exam: Gen - NAD, edema HEENT - MMM. Sclera anicteric Resp - Diminished BS, few crackles. Breathing nonlabored CV - RRR. No m/g/r Abd - Soft, NT, ND Ext - No c/c. +edema Skin - No rashes? Neuro - Alert and oriented. +legal blindness I have reviewed the pertinent vital sign, laboratory, and imaging data. ASSESSMENT: # Acute Exacerbation of COPD # Multifocal Pneumonia # PUD - s/p recent EGD and clipping of jejunal ulcer # HFpEF # Afib on amio # Former Tobacco use # DM # HTN PLAN: 1. Wean supplemental oxygen to maintain saturations at or above 90%. Down to 4L NC 2. Continue scheduled bronchodilators and steroid taper (wean as tolerated given PUD, hyperglycemia). 3. Empiric cefepime to complete 7 days. Consider broadening abx/repeat Cx/MRSA if worsening 4. Ongoing diuresis as tolerated by hemodynamics and renal function; follow serum bicarb and avoid contraction alkalosis. Reduce lasix dose today 5. Encourage incentive spirometer use and mobilize patient as tolerated. 6. Transfuse blood products to maintain hemoglobin at or above 7 g/dL. Continue PPI therapy. Eliquis resumed per IM discussion with GI 7. Encourage incentive spirometer use and mobilize patient as tolerated. Proph DVT/GI: Eliquis resumed We will sign off given clinical improvement. Please call us back if any questions or if clinical worsening The entirety of this encounter was done via telemedicine using both audio and video. Consent was obtained.
[2024-09-29] MEDS: APIXABAN 5 MG TABLET PO ×2 (08:49→21:00)
[2024-09-29] MEDS: Potassium Chloride Oral Tablet 20 MEQ 40 MEQ PO (10:15)
--- NOTE | 2024-09-29 11:45 | PN_ITS ---
Subjective Subjective Patient seen and examined with her nurse by her bedside. She had no active complaints today. She is on 4L of oxygen. Per case management, she is on 4L of oxygen at rest and 6L with exertion at home. Her BP is running on the lower side of normal this morning, at 111/71 this morning. Review of systems is otherwise negative. Objective Data Objective Data Vital Signs: Vital Signs Temp Pulse Resp BP Pulse Ox O2 Del Method O2 Flow Rate 97.8 F 69 18 111/71 94 Nasal Cannula 4 09/29/24 08:45 09/29/24 08:49 09/29/24 08:45 09/29/24 08:45 09/29/24 08:45 09/29/24 08:46 09/29/24 08:46 FiO2 40 09/27/24 07:17 Oxygen Flow Rate (L/min) 4 Oxygen Delivery Method Nasal Cannula Weight: 196 lb 13.965 oz Body Mass Index (BMI) 36.0 Intake & Output: Intake and Output for Last 24 Hours 09/27/24 09/28/24 09/29/24 23:59 23:59 23:59 Intake Total 350 / 470 1535.5 / 1835.5 1050 / 1050 Output Total 4500 / 5650 4000 / 5100 3050 / 3050 Balance -4150 / -5180 -2464.5 / -3264.5 -1999 / -1999 Lab / Micro Data 09/29/24 05:27 09/29/24 05:27 Labs: Laboratory Results - last 24 hr 09/28/24 11:33: POC Glucose 404 H 09/28/24 16:28: POC Glucose 375 H 09/28/24 21:16: POC Glucose 372 H 09/29/24 05:27: WBC 10.4, RBC 3.71 L, Hgb 9.9 L, Hct 32.0 L, MCV 86.3, MCH 26.7 L, MCHC 30.9 L, RDW Std Deviation 59.8 H, RDW Coeff of Rashaad 19.2 H, Plt Count 396, MPV 9.8, Immature Gran % (Auto) 0.700, Neut % (Auto) 90.8 H, Lymph % (Auto) 3.7 L, Posey % (Auto) 4.8, Eos % (Auto) 0.0, Baso % (Auto) 0.0, Absolute Neuts (auto) 9.5 H, Absolute Lymphs (auto) 0.39 L, Nucleated RBC % 0, Sodium 136, Potassium 3.5, Chloride 90 L, Carbon Dioxide 34.0 H, Anion Gap 12, BUN 22 H, C reatinine 0.61 L, Estim Creat Clear Calc 63.10, Est GFR (MDRD) Non-Af 93, B UN/Creatinine Ratio 35.3 H, Glucose 242 H, Calcium 8.5 09/29/24 06:32: POC Glucose 243 H Micro: Microbiology 09/27/24 09:30 Sputum, Expectorated/Coughed Gram Stain - Final 09/27/24 09:30 Sputum, Expectorated/Coughed Respiratory Culture - Final 09/26/24 15:10 Mucosa - Nasopharyngeal Respiratory Panel (PCR) - Final 09/26/24 15:50 Urine Catheter - Corbin Legionella Antigen - Final 09/26/24 15:50 Urine Catheter - [place] Streptococcus pneumoniae Antigen (M - Final 09/20/24 15:15 Blood Culture (Wb) - Anticubital Left Blood Culture - Final No growth in 5 days. 09/20/24 13:30 Blood Culture (Wb) - Anticubital Left Blood Culture - Final No growth in 5 days. 09/21/24 11:31 Stool Stool Occult Blood (SAI) - Final Occult Blood Positive 09/21/24 10:36 Urine, Clean Catch Legionella Antigen - Final 09/21/24 10:36 Urine, Clean Catch Streptococcus pneumoniae Antigen (M - Final Physical Exam Const alert, oriented x3, no apparent distress and well nourished; Negative for average body habitus or healthy appearing Constitutional Narrative: Class II obesity, with BMI of 36.8. on 4 L of oxygen General Appearance: cooperative HEENT normocephalic, head/scalp atraumatic, moist oral mucous membranes and oropharynx normal Eyes EOMs intact bilaterally Eyes Narrative: Significant conjunctiva pallor bilaterally, no scleral icterus Neck no lymphadenopathy and supple Neck Narrative: Neck is short and thick Lymph Lymphatic: no lymphadenopathy noted Resp normal respiratory effort, no retractions, no use of accessory muscles and clear to auscultation bilaterally Resp Narrative: moderately diminished breath sounds bibasally, no wheezes. Few crackles. on 4 L of oxygen by nasal canula Auscultation: crackles and wheezes Cardio regular rate, regular rhythm, S1 normal heart sound, S2 normal heart sound, no murmurs, no rub, no gallops and no clicks GI normal to inspection, nondistended, normoactive bowel sounds, soft to palpation, non-tender and non-distended GI Narrative: Obese abdomen Extremity normal to inspection, full ROM, normal capillary refill, no clubbing, cyanosis or edema and no calf tenderness Extremity Narrative: Pedal and radial pulses are 2+ General Extremity: no tenderness to palpation of joints or extremities Skin Skin Narrative: Skin is pale General Skin Exam: no breakdown Neuro oriented x3, CN's II-XII intact bilaterally, moves all extremities and no focal motor deficits Sensorium / Orientation: awake and alert Speech: speech normal Motor Exam: strength 5/5 throughout and general weakness Psych thought process normal, cooperative and affect normal Appearance: appropriate Assessment & Plan Assessment/Plan (1) Acute hypoxemic respiratory failure: (2) GI bleed: PLAN: Plan #Acute hypoxic respiratory failure due to pneumonia and probable heart failure * oxygen requirements went up to 8L after she had the EGD, so concern was she may have aspirated. wwbc today is slightly down from 17 yesterday to 16.6 today. * CXR showed continued mixed interstitial and airspace opacities. * 2D echo showed EF of 70% with stage II diastolic dysfunction and no regional wall motion abnormalities noted pulmonary artery systolic pressure 49 mmHg. * Output so far totals 1425 mL though I highly doubt this is accurate. Positive fluid balance by 4394. Again it is questionable whether this is accurate. * Transferred emergently to ICU due to worsening shortness of breath. * Now off BIPAP and on IV normal saline 5L of oxygen. * On IV cefepime. IV Lasix held today as blood pressure is running low. Will DC IV Solu-Medrol * Pulmonology critical care on board. * Titrate oxygen to maintain saturation above 90%. Breathing treatments bronchodilators. * aspiration precautions * Respiratory panel negative. Urine for strep and Legionella negative. * now down to 4L of oxygen today and feels much better. * respiratory panel ordered. blood cultures negative. Urine for Strep and Legionella also ordered. * in cumulative positive balance by 425mls. * #Afib * Now converted to normal sinus rhythm. On metoprolol 50 twice daily. * on PO amiodarone 200mg daily also. * on eliquis * #Acute iron deficiency anemia due to bleeding peptic ulcer. * Hemoglobin today is 9.p * She had EGD which showed multiple nonbleeding ulcers, and a single, oozing jejunal ulcer with pigmented material in which clip was placed. * on IV Pantoprazole. Also started on sucralfate 1 g 4 times daily for 2 weeks. * Has received iron supplementation IV * GI on board. * eliquis resumed on 09/28/2024 per GI recommendation. * #Hypertension: On lisinopril and metoprolol as well as amlodipine. Amlodipine and lisinopril held due to hypotension. Metoprolol increased to 50mg bid due to afib with RVR. #Type 2 diabetes mellitus: Metformin and Mounjaro on hold. Insulin sliding scale. Accu-Cheks ACHS. A1c was 6.9 but in light of the severe anemia this may not be very accurate. #Hyperlipidemia: Statin #History of asthma: Breathing treatments with bronchodilators #DVT prophylaxis: on eliquis. Disposition: Anticipate discharge over the next 24 to 48 hours. Charges/Coding Visit Charges Inpatient E&M: 55281 Subs Hosp L2
[2024-09-29] MEDS: MELATONIN 3 MG TABLET PO (21:01)
[2024-09-30] VITALS (7 sets, daily range): BP systolic 92–129; BP diastolic 43–53; PULSE 58–76; RESP 18; TEMP 36.3–36.7; O2SAT 88–98; BMI 36.1
[2024-09-30] MEDS: Cefepime HCl 1 GM in 0.9% Normal Saline (50mL MB+) 50 ML IV (04:48)
[2024-09-30 07:25] LABS: Hematocrit 32.5 % (37-47); Hemoglobin 9.8 g/dL (12.0-15.0); Immature Granulocytes Count 0.050 X10^3/uL (0.0-0.0); Mean Corp Hgb Conc 30.2 g/dL (32-36); Mean Corpuscular Volume 87.1 fL (81-99); Mean Platelet Vol. 10.0 fl (6.2-12.0); NRBC Flagged by Analyzer 0 % (0-5); Platelet Count 386 K/mm3 (150-450); RBC Distribution Width CV 19.1 % (11.6-14.6); RBC Distribution Width SD 60.8 fl (35.1-43.9); Red Blood Count 3.73 M/mm3 (4.2-5.4); White Blood Count 10.3 K/mm3 (4.4-11.0)
[2024-09-30 08:41] LABS: Magnesium 2.6 mg/dL (1.5-2.2); Pro- Brain NATRIURETIC PEPTIDE 652 pg/mL (<=1800)
[2024-09-30] MEDS: APIXABAN 5 MG TABLET PO (09:02)
[2024-09-30 09:06] LABS: Anion Gap 14 (5-15); BUN 21 mg/dL (4-19); BUN/Creat Ratio 32.5 RATIO (10-20); Calcium,Total 8.7 mg/dL (7.6-11.0); Carbon Dioxide 30.1 mmol/L (21.0-32.0); Chloride 93 mmol/L (98-108); Estimated Creatinine Clearance 63.21 ml/min (50-250); Glucose 158 mg/dL (70-99); Potassium 3.3 mmol/L (3.3-5.1)
[2024-09-30] MEDS: Ipratropium 0.5 MG/2.5 ML SOLUTION INHALATION (10:52)
--- NOTE | 2024-09-30 12:35 | DCINST_ITS ---
Discharge Instructions DC O2, CPAP, BIPAP needs Home O2 Discharge instructions: No Dressing / Incision Discharge Activity: No Restrictions Follow Up Care Test Results: Test results from this visit will be discussed in further detail at your follow- up appointment, if applicable. Discharge Plan Admission Admit Date/Time: 09/20/24 17:53 Primary Reason for Your Visit: Shortness of breath Attending Provider: Maurizio Wells Primary Care Provider: Rober Jordan Consulting Providers: Hari Iniguez; Hodan Savage; Claudia Bolanos Instructions Additional Instructions / Restrictions: Please note the following medication changes as below. START taking: ? Amiodarone 200 mg daily for A-fib ? Protonix 40 mg twice daily for the small intestine ulcer that we found ? Sucralfate 1 g before meals and at night (4 times daily) for 2 weeks, also for the small intestinal ulcer STOP taking: ? Lisinopril and amlodipine, due to low blood pressure while hospitalized ? Aspirin, due to risk of recurrent GI bleed Please take the lower dose of atorvastatin 40 mg daily for your high cholesterol. Please call both the cardiology and GI offices to set up follow-up appointments in the next few weeks. Discharge Orders/Prescriptions Prescriptions: New amiodarone 200 mg Tablet 200 mg PO DAILY 30 Days Qty: 30 0RF sucralfate 1 gram Tablet 1 g PO 1HR_ACHS 14 Days Qty: 64 0RF pantoprazole 40 mg Tablet,Delayed Release (Dr/Ec) 40 mg PO BID 30 Days Qty: 60 0RF Continued albuterol sulfate 8.5 GM HFA aerosol inhaler 2 puff INHALATION Q4H PRN PRN (Reason: Wheezing) Patient Comments: TAKE 2 PUFFS BY MOUTH EVERY 4 HOURS NEEDED metformin 500 mg tablet 500 mg PO DAILY Patient Comments: TAKE 1 TABLET BY MOUTH EVERY DAY WITH BREAKFAST Eliquis 5 mg Tablet 5 mg PO BID Qty: 60 0RF metoprolol tartrate 50 mg Tablet 50 mg PO BID Qty: 60 0RF Mounjaro 2.5 mg/0.5 mL pen injector 2.5 mg subcut QWEEK ergocalciferol (vitamin D2) 1,250 mcg (50,000 unit) capsule 1,250 mcg PO QWEEK Trelegy Ellipta 100-62.5-25 mcg blister with device 1 inh inhalation DAILY PreserVision AREDS 2,148 mcg-113 mg-45 mg-17.4mg tablet 1 tab PO BID Rx Instructions: administer with AM and PM meals Changed atorvastatin 40 MG tablet 40 mg PO QHS 30 Days Qty: 0 0RF Discontinued aspirin 81 MG tablet 81 mg PO DAILY@0800 amlodipine 10 MG tablet 10 mg PO DAILY lisinopril 40 MG tablet 20 mg PO DAILY Referrals / Follow Up: Salvador Horner MD [Med Staff - Active Staff] - Steven Mandel DO [Med Staff - Active Staff] - Rober Jordan MD [Primary Care Provider] - Disposition Disposition (needs filled in before D/C Order can be placed): Home, Self Care
--- NOTE | 2024-09-30 12:45 | DS.PCM_ITS ---
Providers Date of Admission: 09/20/24 Date of Discharge: 10/01/24 Primary Care Physician: Dr. 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 Developer / Pulmonary Medicine Routine Consulting Provider: [facility]/Pulmonary Med Reason for Consult: acute hypoxic respiratory failure EMERGENT Consult: No Notified: Yes Date Notified: 09/23/24 Time Notified: 11:16 Method of Notification: Text 09/23/24 12:20 Consult: Cardiology Routine Consulting Provider: Salvador Horner Reason for Consult: afib, poorly controlled HR EMERGENT Consult: No Notified: Yes Date Notified: 09/23/24 Time Notified: 12:20 Method of Notification: Verbal Reason For Visit: PNEUMONIA Diagnosis Discharge Diagnosis (1) Acute hypoxemic respiratory failure: Status: Acute Code(s): J96.01 - Acute respiratory failure with hypoxia (2) GI bleed: Status: Acute Code(s): K92.2 - Gastrointestinal hemorrhage, unspecified Medications at Discharge Home Medications albuterol sulfate 90 mcg/actuation aerosol inhaler 2 puff inhalation Q4H PRN PRN Wheezing 03/08/20 metformin 500 mg tablet 500 mg PO DAILY diabetes 01/31/23 apixaban 5 mg tablet (Eliquis) 5 mg PO BID blood thinner #60 tabs 02/05/23 metoprolol tartrate 50 mg tablet 50 mg PO BID BP #60 tabs 02/05/23 ergocalciferol (vitamin D2) 1,250 mcg (50,000 unit) capsule 1,250 mcg PO QWEEK vitamin 09/20/24 fluticasone fur. 100 mcg-umeclid 62.5 mcg-vilant 25 mcg inhalat.powder (Trelegy Ellipta) 1 inh inhalation DAILY breathing 09/20/24 tirzepatide 2.5 mg/0.5 mL subcutaneous pen injector (Mounjaro) 2.5 mg subcut QWEEK weight 09/20/24 vitamins A,C,N-xyrg-gtgxqh 2,148 mcg-113 mg-45 mg-17.4 mg tablet (PreserVision AREDS) 1 tab PO BID eyes 09/20/24 amiodarone 200 mg tablet 200 mg PO DAILY 30 days #30 tabs 09/30/24 atorvastatin 40 mg tablet 40 mg PO QHS cholestreol 30 days #0 tabs 09/30/24 pantoprazole 40 mg tablet,delayed release 40 mg PO BID 30 days #60 tabs 09/30/24 sucralfate 1 gram tablet 1 g PO 1HR_ACHS 14 days #64 tabs 09/30/24 Hospital Course Operations None Procedures EGD, EKG and - (Chest x-ray x 3, CTA chest) Summary of Care Provided Minutes Spent on Discharge: 35 Hospital Course: Patient is a 74-year-old female who presented to [facility] ED on 09/20/2024 with shortness of breath. Hospital course as noted below. Patient discharged home in stable condition on 10/01. 1. Acute on chronic hypoxic respiratory failure secondary to acute COPD/asthma exacerbation, multifocal pneumonia and acute HFpEF ? 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 Was on only home 2 L with exertion prior to admission. Required Airvo at 45% and 40 L during hospitalization to maintain appropriate oxygen saturations. CTA chest on 09/23 showed no PE, did show right middle lobe and bilateral lower lobe atelectasis along with patchy interstitial and airspace opacities in the lingula consistent with multifocal pneumonia. Echo on 09/21 showed EF 70% but stage II diastolic dysfunction and elevated pulmonary pressures. Treated with IV steroids, scheduled DuoNebs, IV antibiotics and IV diuresis during hospitalization with good improvement. Oxygen testing completed on day of discharge and patient required 2 L nasal cannula at rest and 3 L with exertion on discharge, prescription sent. Completed course of IV antibiotics as well as IV steroid burst while inpatient, no need for further antibiotics or steroids at discharge. Euvolemic on discharge so no need for maintenance diuretic as well. Okay to continue home Trelegy Ellipta and albuterol as needed on discharge. 2. Acute on chronic blood loss anemia secondary to bleeding peptic ulcer ? GI followed. Hemoglobin 6.9 on admit, down from prior baseline that appears to be around 12-13. EGD on 09/24 showed oozing jejunal ulcer with clip placed, as well as nonbleeding duodenal ulcers with no stigmata of bleeding. GI recommended p.o. PPI twice daily moving forward as well as sucralfate before meals and at night for 2 weeks. Patient did require 2 units of blood during hospitalization. Hemoglobin remained stable around 9 for remainder of admission. Will need outpatient follow-up with GI 2 to 4 weeks after discharge. 3. Paroxysmal A-fib with RVR, hypertension, hyperlipidemia ? Cardiology followed. Patient with known history of paroxysmal A-fib. Was suspected that A-fib with RVR was secondary to acute respiratory failure and GI bleed with anemia as above. Treated with IV amiodarone with conversion back to normal sinus rhythm. Transitioned to p.o. amiodarone and okay to continue home Lopressor on discharge. Continue home Eliquis and atorvastatin on discharge as well. 4. Type 2 diabetes mellitus ? Treated with sliding scale insulin with meals while inpatient with good glucose control. Okay to resume home metformin and Mounjaro on discharge. 5. Class II obesity ? BMI 36 on admit. Complicated hospital course and care. Total clinical time spent by myself addressing the patient's medical issues, reviewing all the data, and collaborating with patient's care team: 35 minutes. Physical Exam Const alert, oriented x3 and no apparent distress Constitutional Narrative: Elderly female, class II obesity, mildly fatigued appearing but otherwise sitting back comfortably in bedside chair, conversing normally, in no acute distress. General Appearance: cooperative and comfortable HEENT normocephalic, head/scalp atraumatic, hearing grossly normal bilaterally, nasal mucous membranes and turbinates normal and moist oral mucous membranes Eyes PERRL, EOMs intact bilaterally and conjunctivae normal Neck full ROM Chest inspection of chest normal Resp normal respiratory effort and no use of accessory muscles Resp Narrative: Breathing comfortably on 2 L nasal cannula at rest. Mildly decreased breath sounds at bilateral lung bases but no wheezing or crackles noted. Improved from admission. Cardio regular rate, regular rhythm, no murmurs and peripheral pulses 2+ throughout GI normal to inspection, nondistended, normoactive bowel sounds, soft to palpation, non-tender and non-distended Back/Spine normal ROM Extremity normal to inspection, full ROM and no pedal edema Skin no rashes or lesions noted Psych mental status grossly normal Weight / BMI Weight Weight: 89.6 kg Body Mass Index (BMI) 36.1 ABG / Lab / Microbiology Data 09/30/24 06:33 09/30/24 06:33 Laboratory: Laboratory Results - last 24 hr 09/29/24 16:07: POC Glucose 439 H 09/29/24 21:12: POC Glucose 283 H 09/30/24 06:27: POC Glucose 167 H 09/30/24 06:33: WBC 10.3, RBC 3.73 L, Hgb 9.8 L, Hct 32.5 L, MCV 87.1, MCH 26.3 L, MCHC 30.2 L, RDW Std Deviation 60.8 H, RDW Coeff of Rashaad 19.1 H, Plt Count 386, MPV 10.0, Immature Gran % (Auto) 0.500, Neut % (Auto) 72.2 H, Lymph % (Auto) 13.5 L, [place] % (Auto) 12.6 H, Eos % (Auto) 1.1, Baso % (Auto) 0.1, Absolute Neuts (auto) 7.4, Absolute Lymphs (auto) 1.39, Nucleated RBC % 0, Sodium 137, Potassium 3.3, Chloride 93 L, Carbon Dioxide 30.1, Anion Gap 14, BUN 21 H, Creatinine 0.66 L, Estim Creat Clear Calc 63.21, Est GFR (MDRD) Non-Af 92, BUN/Creatinine Ratio 32.5 H, Glucose 158 H, Calcium 8.7, Phosphorus 2.9, M agnesium 2.6 H, NT pro BNP II 652 09/30/24 11:15: POC Glucose 250 H Microbiology: Microbiology 09/27/24 09:30 Sputum, Expectorated/Coughed Gram Stain - Final 09/27/24 09:30 Sputum, Expectorated/Coughed Respiratory Culture - Final 09/26/24 15:10 Mucosa - Nasopharyngeal Respiratory Panel (PCR) - Final 09/26/24 15:50 Urine Catheter - [place]bin Legionella Antigen - Final 09/26/24 15:50 Urine Catheter - [place] Streptococcus pneumoniae Antigen (M - Final 09/20/24 15:15 Blood Culture (Wb) - Anticubital Left Blood Culture - Final No growth in 5 days. 09/20/24 13:30 Blood Culture (Wb) - Anticubital Left Blood Culture - Final No growth in 5 days. 09/21/24 11:31 Stool Stool Occult Blood (SAI) - Final Occult Blood Positive 09/21/24 10:36 Urine, Clean Catch Legionella Antigen - Final 09/21/24 10:36 Urine, Clean Catch Streptococcus pneumoniae Antigen (M - Final D/C Instructions DC O2, CPAP, BIPAP Needs Home O2 Discharge instructions: No Meaningful Use Info Meaningful Use Meaningful Use Diagnoses (Choose all that apply): None applicable Discharge Plan Admission Admit Date/Time: 09/20/24 17:53 Primary Reason for Your Visit: Shortness of breath Attending Provider: Maurizio Wells Primary Care Provider: Rober Jordan Consulting Providers: Hari Iniguez; Hodan Savage; Claudia Bolanos Instructions Additional Instructions / Restrictions: Please note the following medication changes as below. START taking: ? Amiodarone 200 mg daily for A-fib ? Protonix 40 mg twice daily for the small intestine ulcer that we found ? Sucralfate 1 g before meals and at night (4 times daily) for 2 weeks, also for the small intestinal ulcer STOP taking: ? Lisinopril and amlodipine, due to low blood pressure while hospitalized ? Aspirin, due to risk of recurrent GI bleed Please take the lower dose of atorvastatin 40 mg daily for your high cholesterol. Please call both the cardiology and GI offices to set up follow-up appointments in the next few weeks. Discharge Orders/Prescriptions Prescriptions: New amiodarone 200 mg Tablet 200 mg PO DAILY 30 Days Qty: 30 0RF sucralfate 1 gram Tablet 1 g PO 1HR_ACHS 14 Days Qty: 64 0RF pantoprazole 40 mg Tablet,Delayed Release (Dr/Ec) 40 mg PO BID 30 Days Qty: 60 0RF Continued albuterol sulfate 8.5 GM HFA aerosol inhaler 2 puff INHALATION Q4H PRN PRN (Reason: Wheezing) Patient Comments: TAKE 2 PUFFS BY MOUTH EVERY 4 HOURS NEEDED metformin 500 mg tablet 500 mg PO DAILY Patient Comments: TAKE 1 TABLET BY MOUTH EVERY DAY WITH BREAKFAST Eliquis 5 mg Tablet 5 mg PO BID Qty: 60 0RF metoprolol tartrate 50 mg Tablet 50 mg PO BID Qty: 60 0RF Mounjaro 2.5 mg/0.5 mL pen injector 2.5 mg subcut QWEEK ergocalciferol (vitamin D2) 1,250 mcg (50,000 unit) capsule 1,250 mcg PO QWEEK Trelegy Ellipta 100-62.5-25 mcg blister with device 1 inh inhalation DAILY PreserVision AREDS 2,148 mcg-113 mg-45 mg-17.4mg tablet 1 tab PO BID Rx Instructions: administer with AM and PM meals Changed atorvastatin 40 MG tablet 40 mg PO QHS 30 Days Qty: 0 0RF Discontinued aspirin 81 MG tablet 81 mg PO DAILY@0800 amlodipine 10 MG tablet 10 mg PO DAILY lisinopril 40 MG tablet 20 mg PO DAILY Referrals / Follow Up: Salvador Horner MD [Med Staff - Active Staff] - 10/14/24 10:00 am (Ciro Gaines) Steven Mandel DO [Med Staff - Active Staff] - 10/11/24 1:00 pm (Emilee Carcamo) Rober Jordan MD [Primary Care Provider] - 10/07/24 1:00 pm (TUNDE Marroquin) Disposition Disposition (needs filled in before D/C Order can be placed): Home, Self Care Charges/Coding Visit Charges Inpatient E&M: 23569 Disch Hosp >30min
--- NOTE | 2024-09-30 13:13 | PCM.HOSP.N ---
Hospitalist Note I have reviewed the oxygen testing, and this patient qualifies for the home equipment and portability. The patient is mobile in the home and the community.
--- NOTE | 2024-09-30 16:13 | CASEMGMT ---
MELINDA PAPPAS note: Home O2 ambulatory testing has been completed. Pt qualifies for O2 @ 2 L/M @ rest and 3 L/M w/exertion. Script received for this and sent to [facility] Per Ina @ [facility], they do not provide pt's home O2. MELINDA PAPPAS back to room. Pt states she is still not sure who she gets her O2 concentrator from, but states her son would know. MELINDA PAPPAS spoke w/son, Nikita, who states he it is through [facility]. He states [employer] just came out and replaced pt's concentrator on Sep 19, d/t the concentrator she had was not working. MELINDA PAPPAS spoke w/Marla @ [facility], who states pt's current home O2 order is for 2 L/M @ HS. Dr Wells made aware. New script for O2 @ 2 L/M @ rest and 3 L/M w/exertion received from Dr Wells and sent to [facility] via [facility]. Son states he will be coming in to take pt home when he gets off of work. Pt does not have a pulse ox @ home. MELINDA PAPPAS recommended they purchase a pulse ox and made aware of locations this could be purchased. Pt requested for son to be present when RN reviews discharge instructions. RNMiriam, made aware of same. Marla @ [facility] states they will deliver a few portable O2 tanks to [facility] today and can arrange for delivery of more portable tanks to pt's home either tomorrow or next week. She was made aware to call pt's son, Nikita, to set up delivery of this. Pt denies having further discharge needs or concerns. Mariama GARDNER RN, CM
--- NOTE | 2024-09-30 17:05 | PN_ITS ---
Progress Note Patient says that her breathing is a lot better. Physical Exam Const alert, oriented x3, no apparent distress and well nourished; Negative for average body habitus or healthy appearing Constitutional Narrative: Class II obesity, with BMI of 36.8. on 4 L of oxygen General Appearance: cooperative HEENT normocephalic, head/scalp atraumatic, moist oral mucous membranes and oropharynx normal Eyes EOMs intact bilaterally Eyes Narrative: Significant conjunctiva pallor bilaterally, no scleral icterus Neck no lymphadenopathy and supple Neck Narrative: Neck is short and thick Lymph Lymphatic: no lymphadenopathy noted Resp normal respiratory effort, no retractions, no use of accessory muscles and clear to auscultation bilaterally Resp Narrative: moderately diminished breath sounds bibasally, no wheezes. Few crackles. on 4 L of oxygen by nasal canula Auscultation: crackles and wheezes Cardio regular rate, regular rhythm, S1 normal heart sound, S2 normal heart sound, no murmurs, no rub, no gallops and no clicks GI normal to inspection, nondistended, normoactive bowel sounds, soft to palpation, non-tender and non-distended GI Narrative: Obese abdomen Extremity normal to inspection, full ROM, normal capillary refill, no clubbing, cyanosis or edema and no calf tenderness Extremity Narrative: Pedal and radial pulses are 2+ General Extremity: no tenderness to palpation of joints or extremities Skin Skin Narrative: Skin is pale General Skin Exam: no breakdown Neuro oriented x3, CN's II-XII intact bilaterally, moves all extremities and no focal motor deficits Sensorium / Orientation: awake and alert Speech: speech normal Motor Exam: strength 5/5 throughout and general weakness Psych thought process normal, cooperative and affect normal Appearance: appropriate Assessment & Plan Assessment/Plan (1) Acute hypoxemic respiratory failure: (2) GI bleed: PLAN: Plan 74-year-old COPD exacerbation secondary to community-acquired and underlying acute GI bleed Afib * Now converted to normal sinus rhythm. On metoprolol 50 twice daily. * on PO amiodarone 200mg daily also. * on eliquis * Acute iron deficiency anemia due to bleeding peptic ulcer. * Hemoglobin today is 9.p * She had EGD which showed multiple nonbleeding ulcers, and a single, oozing jejunal ulcer with pigmented material in which clip was placed. * on IV Pantoprazole. Also started on sucralfate 1 g 4 times daily for 2 weeks. * Has received iron supplementation IV * eliquis resumed on 09/28/2024 per GI recommendation. * Follow-up in the clinic will repeat EGD and possible capsule endoscopy. . Visit Charges Inpatient E&M: 48419 [facility] Hosp L3
== END 2024-09-30 18:08 | disposition home or self-care (01) | DRG 193 ==
LOC: ED 16:59 → PCU 17:05 → ICU 09-26 06:14 → PCU 09-27 18:27
PROVIDERS: Anesthesiology; Internal Medicine; Internal Medicine Gastroenterology; Internal Medicine Pulmonary Disease; Student in an Organized Health Care Education/Training Program; Emergency Provider Emergency Medicine; PCP Family Medicine; Referring Provider Emergency Medicine; Visit Provider Hospitalist
PROC: 0DJ08ZZ Inspection of Upper Intestinal Tract, Via Natural or Artificial Opening Endoscopic (ICD-10-PCS; CPT 43235; principal; 2024-09-24 15:40)
DX: J18.9 Pneumonia, unspecified organism (principal); J96.01 Acute respiratory failure with hypoxia; K28.4 Chronic or unspecified gastrojejunal ulcer with hemorrhage; I50.33 Acute on chronic diastolic (congestive) heart failure; I24.89 Other forms of acute ischemic heart disease; J44.0 Chronic obstructive pulmonary disease with (acute) lower respiratory infection; D68.32 Hemorrhagic disorder due to extrinsic circulating anticoagulants; E87.20 Acidosis, unspecified; D62 Acute posthemorrhagic anemia; I47.10 Supraventricular tachycardia, unspecified; J44.1 Chronic obstructive pulmonary disease with (acute) exacerbation; E11.65 Type 2 diabetes mellitus with hyperglycemia; D50.9 Iron deficiency anemia, unspecified; I11.0 Hypertensive heart disease with heart failure; Z68.36 Body mass index [BMI] 36.0-36.9, adult; I48.0 Paroxysmal atrial fibrillation; E78.00 Pure hypercholesterolemia, unspecified; J43.2 Centrilobular emphysema; I95.9 Hypotension, unspecified; K26.9 Duodenal ulcer, unspecified as acute or chronic, without hemorrhage or perforation; E66.812 Obesity, class 2; H54.8 Legal blindness, as defined in USA; Z79.84 Long term (current) use of oral hypoglycemic drugs; Z79.01 Long term (current) use of anticoagulants; Z79.85 Long-term (current) use of injectable non-insulin antidiabetic drugs; Z79.51 Long term (current) use of inhaled steroids; Z79.82 Long term (current) use of aspirin; Z79.899 Other long term (current) drug therapy; Z86.711 Personal history of pulmonary embolism; Z87.891 Personal history of nicotine dependence
CPT/HCPCS: 36415; 36600; 71045; 71275; 80048; 80053; 82274; 82607; 82728; 82747; 82803; 82962; 83036; 83540; 83550; 83605; 83735; 83880; 84100; 84443; 84484; 85014; 85018; 85025; 85610; 85730; 86850; 86900; 86901; 87040; 87070; 87205; 87449; 87633; 88305; 93005; 93306; 94002; 94640; 94660; 94667; 94668; 94760; 94762; 97161; 97164; 97165; 99284; 99406; C1889; J1756; P9016; Q9957; Q9967; A4216; C8929; J0696; J1938; J2405